=== PATIENT | female | born 1970 | race Caucasian/White ===

== ENCOUNTER 2020-07-16 14:18 | Emergency (ER) | payer MEDICARE, MEDICAID, SELFPAY ==
--- NOTE | 2020-07-16 | CT_ITS ---
EXAMINATION: CT ABDOMEN AND PELVIS WITH CONTRAST CLINICAL INFORMATION: umbilical pain COMPARISON: 05/27/2020 TECHNIQUE: Multidetector volumetric imaging was performed from the superior aspect of the liver through the pubic symphysis following administration of 85 cc of Omnipaque intravenous contrast Sagittal and coronal reformatted images were obtained on the technologist workstation.. This CT examination was performed using dose optimization techniques as appropriate, variously including the following: *Automated exposure control *Adjustment of mA and/or kV according to patient size (this includes techniques or standardized protocols for targeted exams where dose is matched to indication/reason for exam; i.e. extremities or head) *Use of iterative reconstruction technique DLP: 962 mGy-cm FINDINGS: LUNG BASES: The visualized lung bases are unremarkable. LIVER, GALLBLADDER, AND BILIARY TREE: The liver is normal in size, shape, and attenuation. No focal hepatic lesion or biliary ductal dilatation is present. The gallbladder is contracted but otherwise unremarkable with no evidence of radiopaque gallstones, gallbladder wall thickening, or obvious pericholecystic inflammatory changes. PANCREAS: Unremarkable. SPLEEN: Unremarkable. ADRENAL GLANDS: Unremarkable. KIDNEYS AND URETERS: There is a 3.2 cm likely complex cyst arising in the anterior lower pole of the right kidney. This measures more than simple fluid density. No obstructive changes to the kidneys. No renal calculi BLADDER: Decompressed but otherwise unremarkable GASTROINTESTINAL TRACT: Few scattered colonic diverticula but no evidence for diverticulitis appendix is surgically absent. Visualized small bowel unremarkable ABDOMINAL WALL: There is mild inflammatory changes in the region of the umbilicus but this appears to be superficial process more suggestive of cellulitis rather than a deeper or intra-abdominal process. LYMPHOVASCULAR STRUCTURES: Mild vascular calcification within the aorta iliac system. No bulky adenopathy PELVIC VISCERA: Unremarkable. OSSEOUS STRUCTURES: Multilevel degenerative changes in the spine more so at L3/L4. IMPRESSION: There is significant soft tissue stranding in the region of the umbilicus more suggestive of focal cellulitis is a tiny air bubble within this area of inflammatory change just deep to the skin surface. I do not appreciate any extension into the peritoneal space or below the abdominal wall. Clinical correlation would be recommended. 3.2 cm likely complex cyst in the right kidney. This can be evaluated with ultrasound or contrast-enhanced cross-sectional imaging.
[2020-07-16 15:05] VITALS: BP 141/73; PULSE 100; RESP 18; TEMP 37; O2SAT 98; BMI 40.2
--- NOTE | 2020-07-16 20:42 | ED.ABDPAIN ---
HPI - Abdominal Pain General Chief Complaint: Abdominal Pain Stated Complaint: belly button pain,pus Time Seen by Provider: 07/16/20 20:30 Source: patient Mode of arrival: ambulatory History of Present Illness HPI narrative: patient states that several days of periumbilical abdominal pain For the past several days. Increase today with drainage from umbilicus. Denies fevers or chills denies diarrhea. Patient states of pain on tenderness to the mid abdomen. Denies urinary symptoms MD elicited complaint: abdominal pain Severity: mild Related Data Previous Rx's Medication Instructions Recorded clindamycin HCl 300 mg PO Q8H #21 cap 07/16/20 Allergies Allergy/AdvReac Type Severity Reaction Status Date / Time morphine [Morphine] Allergy Intermediate VOMITING Verified 07/16/20 21:11 acetaminophen [Percocet] Allergy Unknown Vomiting Verified 07/16/20 21:11 oxycodone [Percocet] Allergy Unknown Vomiting Verified 07/16/20 21:11 From Percocet AdvReac Intermediate VOMITING Uncoded 07/16/20 21:11 Review of Systems Review of Systems Yes all other systems are reviewed and are negative Comments: Constitutional : No Weight loss, No Fever, No Chills, No Night Sweats, No Fatigue, No Malaise ENT/Mouth : No Hearing loss, No Ear Pain, No Nasal Congestion, No Sinus Pain, No Hoarseness, No sore throat, No Rhinorrhea, No Swallowing Difficulty Eyes: No Eye Pain, No Swelling, No Redness, No Foreign Body, No Discharge, No Vision Changes Cardiovascular : No Chest Pain, No SOB, No Dyspnea on Exertion, No Orthopnea, No Edema, No Palpitations Respiratory : No Cough, No Sputum, No Wheezing, No Smoke Exposure, No Dyspnea Gastrointestinal : No Nausea, No Vomiting, No Diarrhea, No Constipation, No abdominal Pain, No Hematochezia, No Melena Genitourinary : no irregular bleeding, No Dysuria, No Urinary Frequency, No Hematuria, No Urinary Incontinence, No Urgency, No Flank Pain, No Urinary Flow Changes, No Hesitancy Musculoskeletal : No joint pain, No Myalgias, No Joint Swelling Skin : No Skin Lesions, No rash Neuro : No Weakness, No Numbness, No Paresthesias, No Loss of Consciousness, No Dizziness, No Headache Psych : No Anxiety/Panic, No Depression, No SI/HI/AH/VH, No Social Issues, Heme/Lymph: No Bruising, No Bleeding,No Lymphadenopathy Endocrine : No Polyuria, No Polydipsia, No Temperature Intolerance Physical Exam Vital Signs and I&O and Narrative: Vital Signs and I&O: Vital Signs Temp 98.1 F 07/16/20 22:00 Pulse 89 07/16/20 22:00 Resp 16 07/16/20 22:00 BP 110/74 07/16/20 22:00 Pulse Ox 96 07/16/20 22:00 Intake & Output 07/16/20 07/16/20 07/17/20 06:59 18:59 06:59 Intake Total 1000 / 1000 Balance 1000 / 1000 Weight 99.798 kg Intake: Intake, IV Amoun t 1000 / 1000 0.9 % Sodium C hloride 1,000 ml 1000 / 1000 @ 999 mls/hr I VCONT .Q1H1M JAMES Rx#:[id number] Body Mass Index 40.2 reviewed, 98% pulse ox Const: Other: Appearance: Alert. Oriented X3. No acute distress. Eyes: Pupils equal, round and reactive to light. ENT: Pharynx normal. Neck: Normal inspection. Neck supple. CVS: Normal heart rate and rhythm. Pulses normal. Respiratory: No respiratory distress. Breath sounds normal. Abdomen: Soft and mild tenderness down the like his period with umbilicus draining dry blood. No abscess no laceration Skin: Skin warm and dry. Normal skin color. Normal skin turgor. Extremities: No lower extremity edema. No lower extremity edema. Neuro: Oriented X 3. No motor deficit. No sensory deficit. Course Course Course Narrative: differential diagnosis includes abscess, infection, perforation of the abdomen Reevaluation(s) Reevaluation #1: Patient with adominal Wall cellulitis. No signs of sepsis. CT scan without shows abscess. Patient able to walk on her own. Smiling alert oriented and nontoxic appearing. At discharge re-examine the abdomen shows no signs of peritonitis. Will discharge with p.o. medications Time: 23:43 MDM - Abdominal Pain Medical Records Attestation: I reviewed the patient's medical records. Lab Data Attestation: I reviewed the patient's lab results. Result diagrams: 07/16/20 21:08 07/16/20 21:08 Labs: Lab Results 10/05/20 10/05/20 10/05/20 Range/Units 21:08 21:08 21:08 WBC 9.8 (4.8-10.8) X10*3/uL RBC 4.33 (4.20-5.50) X10*6/uL Hgb 13.4 (12.0-16.0) g/dl Hct 39.3 (37-47) % MCV 90.8 (80-98) fL MCH 30.9 (27.0-33.0) pg MCHC 34.1 (31.0-35.0) g/dl RDW 12.5 (11.0-16.0) % Plt Count 313 (160-400) X10*3/uL MPV 9.4 (9.4-12.3) fL Immature Gran % (Auto) 0.1 (0.0-0.4) % Neut % (Auto) 52.7 (45-73) % Lymph % (Auto) 39.6 (20-40) % [place] % (Auto) 6.2 (2-11) % Eos % (Auto) 1.0 (0-4) % Baso % (Auto) 0.4 (0-2) % Neut # (Auto) 5.2 (2.0-8.3) X10*3/uL Lymph # (Auto) 3.9 (1.2-4.9) X10*3/uL [place] # (Auto) 0.6 (0.1-1.2) X10*3/uL Eos # (Auto) 0.1 (0.0-0.4) X10*3/uL Baso # (Auto) 0.0 (0.0-0.2) X10*3/uL Abs Immat Gran (auto) 0.01 (0.00-0.03) X10*3/uL Absolute Nucleated RBC 0.000 (0.0-0.012) X10*3/uL Nucleated RBC % (auto) 0.0 (0.0-0.2) /100WBC Hold Blue Top SEE NOTE Sodium (135-145) mmol/L Potassium (3.3-5.1) mmol/l Chloride (96-108) mmol/L Carbon Dioxide (22-29) mmol/L Anion Gap (12-20) BUN (9-16) mg/dL Creatinine (0.5-1.4) mg/dL Estim Creat Clear Calc Estimated GFR Random Glucose (60-115) mg/dL Calcium (8.4-10.2) mg/dL Total Bilirubin (0.0-1.0) mg/dL AST (5-31) U/L ALT (0-31) U/L Alkaline Phosphatase (39-117) U/L Total Protein (6.5-8.0) g/dL Albumin (3.5-5.0) g/dL Urine Color YELLOW Urine Appearance CLEAR Urine pH 7.0 (5.0-8.0) Ur Specific [place] 1.020 (1.005-1.025) Urine Protein NEG (NEG-TRACE) MG/DL Urine Glucose (UA) NEG (NEG) MG/DL Urine Ketones NEG (NEG) MG/DL Urine Blood NEG (NEG) Urine Nitrite NEG (NEG) Ur Leukocyte Esterase 1+ H (NEG) Urine RBC 0 (0) /HPF Urine WBC 1-4 (0-4) /HPF Ur Squamous Epith Cells TRACE /LPF Urine Bacteria TRACE /LPF 07/16/20 Range/Units 21:08 WBC (4.8-10.8) X10*3/uL RBC (4.20-5.50) X10*6/uL Hgb (12.0-16.0) g/dl Hct (37-47) % MCV (80-98) fL MCH (27.0-33.0) pg MCHC (31.0-35.0) g/dl RDW (11.0-16.0) % Plt Count (160-400) X10*3/uL MPV (9.4-12.3) fL Immature Gran % (Auto) (0.0-0.4) % Neut % (Auto) (45-73) % Lymph % (Auto) (20-40) % [place] % (Auto) (2-11) % Eos % (Auto) (0-4) % Baso % (Auto) (0-2) % Neut # (Auto) (2.0-8.3) X10*3/uL Lymph # (Auto) (1.2-4.9) X10*3/uL [place] # (Auto) (0.1-1.2) X10*3/uL Eos # (Auto) (0.0-0.4) X10*3/uL Baso # (Auto) (0.0-0.2) X10*3/uL Abs Immat Gran (auto) (0.00-0.03) X10*3/uL Absolute Nucleated RBC (0.0-0.012) X10*3/uL Nucleated RBC % (auto) (0.0-0.2) /100WBC Hold Blue Top Sodium 141 (135-145) mmol/L Potassium 3.9 (3.3-5.1) mmol/l Chloride 103 (96-108) mmol/L Carbon Dioxide 26 (22-29) mmol/L Anion Gap 16 (12-20) BUN 14 (9-16) mg/dL Creatinine 0.79 (0.5-1.4) mg/dL Estim Creat Clear Calc 95.1 Estimated GFR > 60 Random Glucose 116 H (60-115) mg/dL Calcium 10.5 H (8.4-10.2) mg/dL Total Bilirubin 0.3 (0.0-1.0) mg/dL AST 27 (5-31) U/L ALT 39 H (0-31) U/L Alkaline Phosphatase 94 (39-117) U/L Total Protein 7.6 (6.5-8.0) g/dL Albumin 4.6 (3.5-5.0) g/dL Urine Color Urine Appearance Urine pH (5.0-8.0) Ur Specific [place] (1.005-1.025) Urine Protein (NEG-TRACE) MG/DL Urine Glucose (UA) (NEG) MG/DL Urine Ketones (NEG) MG/DL Urine Blood (NEG) Urine Nitrite (NEG) Ur Leukocyte Esterase (NEG) Urine RBC (0) /HPF Urine WBC (0-4) /HPF Ur Squamous Epith Cells /LPF Urine Bacteria /LPF Discharge Plan Discharge Clinical Impression: Abdominal wall cellulitis Patient Disposition: Home, Self-Care Instructions: Cellulitis (ED) Additional Instructions: Thank you for visiting the emergency department today. If your symptoms worsen or do not resolve completely please return to the emergency department immediately or call 911. if he have any questions please call your primary care physician Prescriptions: New clindamycin HCl 300 mg capsule 300 mg PO Q8H Qty: 21 RF: 0 Referrals: Festus Lang PA-C [Primary Care Provider] - 2 days Interventions: ED Discharge Assessment Last Done: 07/16/20 23:24 Discharge Date/Time: 07/16/20 23:39 [facility] Past Medical History Attestation statement: The following information was validated with the patient. Surgical History (Updated 07/16/20 @ 20:49 by Nikolay Paredes DO) H/O: hysterectomy Family History Family History (Updated 07/16/20 @ 20:49 by Nikolay Paredes DO) Other Patient denies medical problems Social History Social History Alcohol intake: never Smoking Status: Former smoker Smoked in Last 30 Days: No Use of substances other than those prescribed or required for medical reasons: No Advance Directives: No Advance Directives Information Provided: No
[2020-07-16] MEDS: 0.9 % Sodium Chloride 1,000 ML 999 ML IVCONT (21:11)
[2020-07-16 21:17] LABS: MANUAL DIFF FLAG NO
[2020-07-16] MEDS: Ketorolac Tromethamine 30 MG/ML VIAL IVPUSH (21:21)
[2020-07-16 21:22] VITALS: BP 121/78; PULSE 78; RESP 16; TEMP 36.9; O2SAT 97
[2020-07-16 21:32] LABS: Glucose Urine UA NEG (NEG); Leukocyte Esterase Urine 1+ (NEG); Nitrite Urine NEG (NEG); Urine Blood NEG (NEG); Urine Ketones NEG (NEG); Urine Protein NEG (NEG-TRACE)
[2020-07-16 21:37] LABS: Appearance Urine CLEAR; Basophils Percent Auto 0.4 % (0-2); Color Urine YELLOW; Eosinophils Absolute Auto 0.1 X10*3/uL (0.0-0.4); Hematocrit 39.3 % (37-47); Hemoglobin 13.4 g/dl (12.0-16.0); Imm Gran Abs Auto 0.01 X10*3/uL (0.00-0.03); Imm Gran Pct Auto 0.1 % (0.0-0.4); Lymphocytes Absolute Auto 3.9 X10*3/uL (1.2-4.9); Lymphocytes Percent Auto 39.6 % (20-40); Mean Corpuscular HGB Conc 34.1 g/dl (31.0-35.0); Mean Corpuscular Hemoglobin 30.9 pg (27.0-33.0); Mean Corpuscular Volume 90.8 fL (80-98); Mean Platelet Volume 9.4 fL (9.4-12.3); Monocytes Absolute Auto 0.6 X10*3/uL (0.1-1.2); Monocytes Percent Auto 6.2 % (2-11); Neutrophils Absolute Auto 5.2 X10*3/uL (2.0-8.3); Neutrophils Percent Auto 52.7 % (45-73); Platelet Count 313 X10*3/uL (160-400); Red Blood Count 4.33 X10*6/uL (4.20-5.50); Red Cell Distribution Width 12.5 % (11.0-16.0); White Blood Count 9.8 X10*3/uL (4.8-10.8)
[2020-07-16 21:46] LABS: Alanine Aminotransferase 39 U/L (0-31); Albumin Level 4.6 g/dL (3.5-5.0); Alkaline Phosphatase 94 U/L (39-117); Anion Gap 16 (12-20); Aspartate Amino Transferase 27 U/L (5-31); Bilirubin Total 0.3 mg/dL (0.0-1.0); Blood Urea Nitrogen 14 mg/dL (9-16); Calcium 10.5 mg/dL (8.4-10.2); Carbon Dioxide 26 mmol/L (22-29); Chloride 103 mmol/L (96-108); Creatinine Clr Calc Pharmacy 95.1; Estimated Glomerular Filt Rate > 60; Glucose Random 116 mg/dL (60-115); Potassium 3.9 mmol/l (3.3-5.1); Sodium 141 mmol/L (135-145); Total Protein 7.6 g/dL (6.5-8.0)
[2020-07-16 22:00] VITALS: BP 110/74; PULSE 89; RESP 16; TEMP 36.7; O2SAT 96
[2020-07-16 22:08] LABS: Bacteria Urine TRACE /LPF; RBC Urine 0 /HPF (0); Squamous Epithelial Cell Urine TRACE /LPF
[2020-07-16] MEDS: iohexoL 350 MG/ML 100 ML INFUS..BTL IV (22:11)
== END 2020-07-16 23:39 | disposition home or self-care (01) ==
PROVIDERS: Emergency Provider Emergency Medicine; PCP Physician Assistant
DX: L03.311 Cellulitis of abdominal wall (principal); Z87.891 Personal history of nicotine dependence
CPT/HCPCS: 36415; 74177; 80053; 81001; 85025; 87086; 96361; 96374; 99284

== ENCOUNTER → 2020-08-08 12:51 | Outpatient (BNVA) | payer MEDICARE, MEDICAID, SELFPAY | PROVIDERS: PCP Physician Assistant; Referring Provider Physician Assistant; Visit Provider Dietitian, Registered | DX: Z76.89 Persons encountering health services in other specified circumstances (principal) ==

== ENCOUNTER 2020-08-17 08:20 | Outpatient (REF) | payer MEDICARE, MEDICAID, SELFPAY ==
--- NOTE | 2020-08-17 08:26 | MM_ITS ---
EXAMINATION: MM SCREENING DIGITAL BREAST TOMOSYNTHESIS, BILATERAL CLINICAL INFORMATION: Screening. Asymptomatic. The lifetime risk of breast cancer based on the Tyrer-Cuzick Model is 3.8%. COMPARISON: Mammography: March 15, 2019 and studies dating back to May 20, 2012 TECHNIQUE: Digital mammography is performed in craniocaudal and mediolateral oblique views along with computer-aided detection (CAD). Digital breast tomosynthesis is performed in implant-displaced craniocaudal and implant-displaced mediolateral oblique views along with computer-aided detection (CAD). Synthesized 2D images are generated from the tomosynthesis. Additional left cleavage view performed. FINDINGS: The breasts are almost entirely fatty (ACR BI-RADS breast composition Category a). There are no significant masses, abnormal calcifications, or other abnormalities. MM/MM tomosynthesis screen imp BI IMPRESSION: There are no significant changes from prior study. ASSESSMENT: BI-RADS 1: Negative RECOMMENDATION: Routine annual mammography screening. This patient's information was entered into a reminder system with a target due date for their next mammogram.
== END 2020-08-17 08:21 | disposition home or self-care (01) ==
LOC: HO.MAMMO 08:20
PROVIDERS: PCP Physician Assistant; Visit Provider Obstetrics & Gynecology
DX: Z12.31 Encounter for screening mammogram for malignant neoplasm of breast (principal)
CPT/HCPCS: 77063; 77067

== ENCOUNTER → 2020-08-28 13:48 | Outpatient (BNVA) | payer MEDICARE, MEDICAID, SELFPAY | PROVIDERS: PCP Physician Assistant; Visit Provider Dietitian, Registered | DX: Z76.89 Persons encountering health services in other specified circumstances (principal) ==

== ENCOUNTER → 2020-10-09 14:13 | Outpatient (BNVA) | payer MEDICARE, MEDICAID, SELFPAY | PROVIDERS: PCP Physician Assistant; Visit Provider Dietitian, Registered | DX: Z76.89 Persons encountering health services in other specified circumstances (principal) ==

== ENCOUNTER 2020-11-28 13:32 | Outpatient (REF) | payer MEDICARE, MEDICAID, SELFPAY ==
[2020-11-28 14:49] LABS: Alanine Aminotransferase 31 U/L (0-31); Albumin Level 4.3 g/dL (3.5-5.0); Alkaline Phosphatase 85 U/L (39-117); Anion Gap 12 (12-20); Aspartate Amino Transferase 22 U/L (5-31); Bilirubin Total 0.5 mg/dL (0.0-1.0); Blood Urea Nitrogen 16 mg/dL (9-16); Calcium 10.4 mg/dL (8.4-10.2); Carbon Dioxide 30 mmol/L (22-29); Chloride 101 mmol/L (96-108); Cholesterol 200 mg/dL; Estimated Glomerular Filt Rate > 60; Glucose Fasting 114 mg/dL (60-99); HDL Cholesterol 56 mg/dL; LDL Cholesterol Calculated 97 mg/dl; Potassium 4.1 mmol/L (3.3-5.1); Sodium 139 mmol/L (135-145); Total Protein 7.1 g/dL (6.5-8.0); Triglycerides 237 mg/dL
[2020-11-28 15:01] LABS: Thyroid Stimulating Hormone 0.91 uIU/mL (0.32-4.0)
== END 2020-11-28 13:33 | disposition home or self-care (01) ==
LOC: HO.LAB 13:32
PROVIDERS: PCP Physician Assistant; Visit Provider Physician Assistant
DX: E11.9 Type 2 diabetes mellitus without complications (principal); E78.5 Hyperlipidemia, unspecified
CPT/HCPCS: 36415; 80053; 80061; 84443

== ENCOUNTER → 2020-12-03 08:43 | Outpatient (BNVA) | payer MEDICARE, MEDICAID, SELFPAY | PROVIDERS: PCP Physician Assistant; Visit Provider Nurse Practitioner Gerontology | CPT/HCPCS: Q3014 ==

== ENCOUNTER → 2020-12-18 14:16 | Outpatient (BNVA) | payer MEDICARE, MEDICAID, SELFPAY | PROVIDERS: PCP Physician Assistant; Visit Provider Physician Assistant | DX: Z13.89 Encounter for screening for other disorder (principal) | CPT/HCPCS: Q3014 ==

== ENCOUNTER 2021-02-27 11:43 | Outpatient (REF) | payer MEDICARE, MEDICAID, SELFPAY ==
--- NOTE | ~2021-02-27 | XR_ITS ---
EXAMINATION: XR RIBS, RIGHT CLINICAL INFORMATION: Right rib pain COMPARISON: Chest radiographs 07/05/2020, 09/04/2012 TECHNIQUE: Frontal view chest and 3 views right ribs are obtained for a total of 4 views. FINDINGS: There is no visible right rib fracture or rib destructive process. Punctate calcific tendinosis is present adjacent to the right shoulder greater tuberosity. There is also some benign minor spurring at pectoralis insertion proximal humerus. The acromioclavicular alignment is normal. There is no pneumothorax, pleural reaction, airspace consolidation, or effusion. The costophrenic sulci are clear. The heart is normal in size. The hilar and mediastinal contours are normal. There are multilevel degenerative changes thoracic spine. XR/XR ribs RT min 3V w CXR1V IMPRESSION: 1. No right rib fracture or rib destructive process. 2. Lungs clear. No pneumothorax, pleural reaction, infiltrate, or effusion. 3. Punctate calcific tendinosis right shoulder. Spurring at pectoralis insertion humerus.
== END 2021-02-27 11:44 | disposition home or self-care (01) ==
LOC: HO.XRAY 11:43
PROVIDERS: PCP Physician Assistant; Visit Provider Chiropractor
DX: R07.81 Pleurodynia (principal)
CPT/HCPCS: 71101

== ENCOUNTER → 2021-02-28 12:14 | Outpatient (BNVA) | payer MEDICARE, MEDICAID, SELFPAY | PROVIDERS: PCP Physician Assistant; Visit Provider Dietitian, Registered | DX: E11.9 Type 2 diabetes mellitus without complications (principal); Z79.4 Long term (current) use of insulin | CPT/HCPCS: 97803 ==

== ENCOUNTER 2021-07-18 18:19 | Outpatient (REF) | payer MEDICARE, MEDICAID, SELFPAY ==
[2021-07-18 18:59] LABS: Influenza A PCR NEGATIVE (Negative); Influenza B PCR NEGATIVE (Negative); Resp Syncy Virus RNA Qual PCR NEGATIVE (Negative); SARS COV2 PCR INHOUSE NEGATIVE (Negative)
== END 2021-07-18 18:20 | disposition home or self-care (01) ==
LOC: HO.LNP 18:19
PROVIDERS: Visit Provider Family Medicine
DX: J02.9 Acute pharyngitis, unspecified (principal); Z20.822 Contact with and (suspected) exposure to COVID-19
CPT/HCPCS: 0241U

== ENCOUNTER → 2021-08-30 11:40 | Outpatient (BNVA) | payer MEDICARE, MEDICAID, SELFPAY | PROVIDERS: PCP Physician Assistant; Visit Provider Dietitian, Registered | DX: E11.9 Type 2 diabetes mellitus without complications (principal) | CPT/HCPCS: 97803 ==

== ENCOUNTER 2021-09-27 11:23 | Outpatient (REF) | payer MEDICARE, MEDICAID, SELFPAY ==
[2021-09-27 12:14] LABS: Hematocrit 40.1 % (37.0-47.0); Hemoglobin 13.1 g/dl (12.0-16.0); Mean Corpuscular HGB Conc 32.7 g/dl (31.0-35.0); Mean Corpuscular Hemoglobin 30.2 pg (27.0-33.0); Mean Corpuscular Volume 92.4 fL (80.0-98.0); Mean Platelet Volume 8.9 fL (9.4-12.3); Platelet Count 283 X10*3/uL (160-400); Red Blood Count 4.34 X10*6/uL (4.20-5.50); Red Cell Distribution Width 12.9 % (11.0-16.0); White Blood Count 7.5 X10*3/uL (4.8-10.8)
[2021-09-27 12:46] LABS: Alanine Aminotransferase 29 U/L (0-31); Albumin Level 4.1 g/dL (3.5-5.0); Alkaline Phosphatase 80 U/L (39-117); Anion Gap 12 (12-20); Aspartate Amino Transferase 21 U/L (5-31); Bilirubin Total 0.4 mg/dL (0.0-1.0); Blood Urea Nitrogen 18 mg/dL (9-16); Calcium 10.1 mg/dL (8.4-10.2); Carbon Dioxide 29 mmol/L (22-29); Chloride 104 mmol/L (96-108); Cholesterol 196 mg/dL; Estimated Glomerular Filt Rate > 60; Glucose Fasting 128 mg/dL (60-99); HDL Cholesterol 46 mg/dL; LDL Cholesterol Calculated 111 mg/dl; Sodium 141 mmol/L (135-145); Total Protein 6.9 g/dL (6.5-8.0); Triglycerides 198 mg/dL
[2021-09-27 13:07] LABS: TSH reflex Free T4 1.03 uIU/mL (0.32-4.0)
== END 2021-09-27 11:24 | disposition home or self-care (01) ==
LOC: HO.LAB 11:23
PROVIDERS: PCP Physician Assistant; Visit Provider Physician Assistant
DX: E11.9 Type 2 diabetes mellitus without complications (principal); I10 Essential (primary) hypertension
CPT/HCPCS: 36415; 80053; 80061; 84443; 85027

== ENCOUNTER → 2021-10-10 14:34 | Outpatient (BNVA) | payer MEDICARE, MEDICAID, SELFPAY | PROVIDERS: PCP Physician Assistant; Visit Provider Nurse Practitioner Gerontology | DX: E11.9 Type 2 diabetes mellitus without complications (principal); E78.5 Hyperlipidemia, unspecified; E66.9 Obesity, unspecified; I10 Essential (primary) hypertension | CPT/HCPCS: Q3014 ==

== ENCOUNTER 2022-01-21 12:21 | Outpatient (REF) | payer MEDICARE, MEDICAID, SELFPAY ==
--- NOTE | ~2022-01-21 | MM_ITS ---
EXAMINATION: MM SCREENING DIGITAL BREAST TOMOSYNTHESIS, BILATERAL CLINICAL INFORMATION: Screening. Asymptomatic. The lifetime risk of breast cancer based on the Tyrer-Cuzick Model is 9%. COMPARISON: Mammography: 08/17/2020, 03/15/2019, 02/01/2018 TECHNIQUE: Digital breast tomosynthesis is performed in both the craniocaudal and mediolateral oblique views along with computer-aided detection (CAD). Synthesized 2D images are generated from the tomosynthesis. Additional bilateral CC views are provided. FINDINGS: There are scattered areas of fibroglandular density (ACR BI-RADS breast composition Category b). Breast tissue composition borders on predominantly fatty. Background stromal and fibroglandular densities are stable. There is no developing density or architectural abnormality or abnormal calcifications. The axilla and skin contours are unremarkable. No significant changes. MM/MM tomosynthesis screening BI IMPRESSION: No mammographic evidence of malignancy. ASSESSMENT: BI-RADS 1: Negative RECOMMENDATION: Routine annual mammography screening. This patient's information was entered into a reminder system with a target due date for their next mammogram.
== END 2022-01-21 12:22 | disposition home or self-care (01) ==
LOC: HO.MAMMO 12:21
PROVIDERS: PCP Physician Assistant; Visit Provider Physician Assistant
DX: Z12.31 Encounter for screening mammogram for malignant neoplasm of breast (principal)
CPT/HCPCS: 77063; 77067

== ENCOUNTER 2022-06-02 09:24 | Outpatient (REF) | payer MEDICARE, MEDICAID, SELFPAY ==
[2022-06-02 10:02] LABS: Hematocrit 40.2 % (37.0-47.0); Hemoglobin 13.7 g/dl (12.0-16.0); Mean Corpuscular HGB Conc 34.1 g/dl (31.0-35.0); Mean Corpuscular Hemoglobin 30.9 pg (27.0-33.0); Mean Corpuscular Volume 90.7 fL (80.0-98.0); Mean Platelet Volume 9.4 fL (9.4-12.3); Platelet Count 285 X10*3/uL (160-400); Red Blood Count 4.43 X10*6/uL (4.20-5.50); Red Cell Distribution Width 12.5 % (11.0-16.0); White Blood Count 8.1 X10*3/uL (4.8-10.8)
[2022-06-02 10:15] LABS: Estimated Average Glucose 103 mg/dL; Hemoglobin A1c % 5.2 %
[2022-06-02 10:26] LABS: Alanine Aminotransferase 24 U/L (0-31); Albumin Level 4.4 g/dL (3.5-5.0); Alkaline Phosphatase 70 U/L (39-117); Anion Gap 17 (12-20); Aspartate Amino Transferase 19 U/L (5-31); Bilirubin Total 0.5 mg/dL (0.0-1.0); Blood Urea Nitrogen 27 mg/dL (9-16); Calcium 10.2 mg/dL (8.4-10.2); Carbon Dioxide 25 mmol/L (22-29); Chloride 103 mmol/L (96-108); Cholesterol 190 mg/dL; Estimated Glomerular Filt Rate > 60; Glucose Fasting 106 mg/dL (60-99); HDL Cholesterol 46 mg/dL; LDL Cholesterol Calculated 94 mg/dl; Sodium 141 mmol/L (135-145); Triglycerides 251 mg/dL
[2022-06-02 10:47] LABS: TSH reflex Free T4 1.14 uIU/mL (0.32-4.0)
[2022-06-02 12:32] LABS: Creatinine Urine 228.38 mg/dL; Microalbum/Creatinine Ratio Ur 18.8 ug/mg cr
== END 2022-06-02 09:25 | disposition home or self-care (01) ==
LOC: HO.LAB 09:24
PROVIDERS: PCP Physician Assistant; Visit Provider Physician Assistant
DX: E78.5 Hyperlipidemia, unspecified (principal); I10 Essential (primary) hypertension; E11.41 Type 2 diabetes mellitus with diabetic mononeuropathy
CPT/HCPCS: 36415; 80053; 80061; 82043; 83036; 84443; 85027

== ENCOUNTER 2022-06-18 09:44 | Outpatient (REF) | payer MEDICARE, MEDICAID, SELFPAY ==
--- NOTE | ~2022-06-18 | FL_ITS ---
EXAMINATION: FL BARIUM SWALLOW CLINICAL INFORMATION: Difficulty swallowing. COMPARISON: None TECHNIQUE: Barium swallow examination was performed using fluoroscopic evaluation in addition to multiple fluoroscopic spot views. The patient was imaged both upright and prone and using both thick and thin sulfate along with effervescent granules. Fluoroscopy Time: 2.0 minutes DAP: 7.899 Gycm2 Images: 58 FINDINGS: Following oral administration of thick barium and barium-coated turkey, there is normal propagation of the bolus from the oral cavity through the pharynx, esophagus and into the stomach without any evidence of obstruction, narrowing or stricture. The course, caliber and peristalsis of esophagus are normal. There is no gastroesophageal reflux or hiatal hernia in the supine and prone positions. FL/FL barium swallow IMPRESSION: Unremarkable barium swallow exam.
== END 2022-06-18 09:45 | disposition home or self-care (01) ==
LOC: HO.XRAY 09:44
PROVIDERS: PCP Physician Assistant; Visit Provider Physician Assistant
DX: R09.89 Other specified symptoms and signs involving the circulatory and respiratory systems (principal)
CPT/HCPCS: 74220

== ENCOUNTER 2022-07-31 14:19 | Outpatient (REF) | payer MEDICARE, SELFPAY ==
--- NOTE | ~2022-07-31 | XR_ITS ---
EXAMINATION: XR CHEST CLINICAL INFORMATION: Abnormal weight loss COMPARISON: Previous chest x-ray most recent June 2020 TECHNIQUE: 2 views of the chest were obtained. FINDINGS: No significant abnormality is noted involving the heart, lungs, mediastinum, or soft tissues. There are degenerative changes of the spine. XR/XR chest 2V IMPRESSION: No evidence for acute disease in the chest.
[2022-07-31 14:52] LABS: Estimated Average Glucose 108 mg/dL; Hemoglobin A1c % 5.4 %
[2022-08-05 05:43] LABS: Transglutaminase IgA <1.0 U/mL
[2022-08-06 17:17] LABS: Endomysial IgA Antibody Negative (Negative)
== END 2022-07-31 14:20 | disposition home or self-care (01) ==
LOC: HO.XRAY 14:19
PROVIDERS: PCP Physician Assistant; Visit Provider Physician Assistant
DX: R68.81 Early satiety (principal); R63.4 Abnormal weight loss; L03.316 Cellulitis of umbilicus; R10.13 Epigastric pain; F17.210 Nicotine dependence, cigarettes, uncomplicated; R09.89 Other specified symptoms and signs involving the circulatory and respiratory systems; F17.200 Nicotine dependence, unspecified, uncomplicated; E11.9 Type 2 diabetes mellitus without complications; R05.9 Cough, unspecified; Z79.899 Other long term (current) drug therapy
CPT/HCPCS: 36415; 71046; 83036; 86231; 86364; 99202

== ENCOUNTER 2022-08-05 14:55 | Outpatient (REF) | payer MEDICARE, SELFPAY | END 2022-08-05 14:56 | disposition home or self-care (01) | LOC: HO.LNP 14:55 | PROVIDERS: Visit Provider Family Medicine | DX: L08.9 Local infection of the skin and subcutaneous tissue, unspecified (principal) | CPT/HCPCS: 87070; 87205 ==

== ENCOUNTER → 2022-10-30 08:08 | Outpatient (REF) | payer MEDICARE, SELFPAY ==
--- NOTE | ~2022-10-30 | NM_ITS ---
EXAMINATION: ND RADIONUCLIDE SOLID FOOD GASTRIC EMPTYING 4-HOUR STUDY CLINICAL INFORMATION: Early satiety. COMPARISON: None TECHNIQUE: A standard meal consisting of 4 oz of Egg Beaters brand tagged with 1000 microcuries Tc-99m Sulfur Colloid, 8 oz water and 2 slices of toast with jelly was administered orally to the patient. Images were obtained using a dual head gamma camera in the anterior and posterior projections over of the stomach immediately post ingestion and at hourly intervals up to 4 hours post ingestion. The anterior and posterior counts at each time interval were averaged using the geometric mean and expressed as percentage of the immediate post ingestion counts. FINDINGS: There is good visualization of activity in the stomach immediately post ingestion. As the study progresses, there is good clearance of activity from the stomach and visualization of progressively increasing small bowel activity. By the end of the study, there is almost no retention noted in the stomach. Retention in the stomach at each time interval was: 1 hour 66% (normal 37%-90%) 2 hours 37% (normal 30%-60%) 3 hours 4% 4 hours emptying time was not calculated since only 4% retained activity was noted at 3 hours. ND/ND gastric emptying study IMPRESSION: Normal 4-hour solid food gastric emptying study. (For solid meal, rapid gastric emptying is less than 30% at 60 minutes. Delayed gastric emptying criteria is more than 60% remaining at 120 minutes or more than 10% at 240 minutes. The 4-hour value is the best discriminator of a normal or abnormal result).
== END ==
LOC: HO.NUCMED 08:08
PROVIDERS: PCP Physician Assistant; Visit Provider Physician Assistant
DX: R68.81 Early satiety (principal)
CPT/HCPCS: 78264; A9541

== ENCOUNTER 2023-01-07 11:58 | Outpatient (REF) | payer MEDICARE, SELFPAY ==
[2023-01-13 18:24] LABS: HSV 1 IgM IFA Negative (Negative); HSV 2 IgM IFA Negative (Negative)
== END 2023-01-07 11:59 | disposition home or self-care (01) ==
LOC: HO.LAB 11:58
PROVIDERS: PCP Physician Assistant; Visit Provider Physician Assistant
DX: L08.9 Local infection of the skin and subcutaneous tissue, unspecified (principal)
CPT/HCPCS: 36415; 86695; 86696

== ENCOUNTER 2023-01-27 12:16 | Outpatient (REF) | payer MEDICARE, SELFPAY ==
--- NOTE | ~2023-01-27 | MM_ITS ---
EXAMINATION: MM SCREENING DIGITAL BREAST TOMOSYNTHESIS, BILATERAL CLINICAL INFORMATION: Screening. Asymptomatic. The lifetime risk of breast cancer based on the Tyrer-Cuzick Model is 7.7%. COMPARISON: Mammography: January 21, 2022 and studies dating back to August 28, 2014 TECHNIQUE: Digital breast tomosynthesis is performed in both the craniocaudal and mediolateral oblique views along with computer-aided detection (CAD). Synthesized 2D images are generated from the tomosynthesis. FINDINGS: The breasts are almost entirely fatty (ACR BI-RADS breast composition Category a). There are no significant masses, abnormal calcifications, or other abnormalities. MM/MM tomosynthesis screening BI IMPRESSION: No significant changes from prior exam. ASSESSMENT: BI-RADS 1: Negative RECOMMENDATION: Routine annual mammography screening. This patient's information was entered into a reminder system with a target due date for their next mammogram.
== END 2023-01-27 12:17 | disposition home or self-care (01) ==
LOC: HO.MAMMO 12:16
PROVIDERS: PCP Physician Assistant; Visit Provider Physician Assistant
DX: Z12.31 Encounter for screening mammogram for malignant neoplasm of breast (principal)
CPT/HCPCS: 77063; 77067

== ENCOUNTER 2023-03-14 08:50 | Outpatient (REF) | payer MEDICARE, SELFPAY ==
[2023-03-14 09:34] LABS: Hematocrit 40.9 % (37.0-47.0); Hemoglobin 13.6 g/dl (12.0-16.0); Mean Corpuscular HGB Conc 33.3 g/dl (31.0-35.0); Mean Corpuscular Hemoglobin 31.3 pg (27.0-33.0); Mean Corpuscular Volume 94.2 fL (80.0-98.0); Mean Platelet Volume 9.3 fL (9.4-12.3); Platelet Count 266 X10*3/uL (160-400); Red Blood Count 4.34 X10*6/uL (4.20-5.50); Red Cell Distribution Width 12.4 % (11.0-16.0); White Blood Count 7.5 X10*3/uL (4.8-10.8)
[2023-03-14 10:13] LABS: Alanine Aminotransferase 27 U/L (0-31); Albumin Level 4.3 g/dL (3.5-5.0); Alkaline Phosphatase 82 U/L (39-117); Anion Gap 13 (12-20); Aspartate Amino Transferase 24 U/L (5-31); Bilirubin Total 0.4 mg/dL (0.0-1.0); Blood Urea Nitrogen 24 mg/dL (9-16); Calcium 10.8 mg/dL (8.4-10.2); Carbon Dioxide 28 mmol/L (22-29); Chloride 106 mmol/L (96-108); Cholesterol 185 mg/dL; Estimated Glomerular Filt Rate > 60; Glucose Fasting 111 mg/dL (60-99); HDL Cholesterol 57 mg/dL; LDL Cholesterol Calculated 101 mg/dl; Sodium 143 mmol/L (135-145); Triglycerides 137 mg/dL
[2023-03-14 10:30] LABS: TSH reflex Free T4 1.82 uIU/mL (0.32-4.0)
== END 2023-03-14 08:51 | disposition home or self-care (01) ==
LOC: HO.LAB 08:50
PROVIDERS: PCP Physician Assistant; Visit Provider Physician Assistant
DX: E11.41 Type 2 diabetes mellitus with diabetic mononeuropathy (principal)
CPT/HCPCS: 36415; 80053; 80061; 84443; 85027

== ENCOUNTER 2023-03-17 11:34 | Outpatient (REF) | payer MEDICARE, SELFPAY ==
[2023-03-17 12:09] LABS: Hematocrit 40.3 % (37.0-47.0); Hemoglobin 13.3 g/dl (12.0-16.0); Mean Corpuscular Hemoglobin 30.5 pg (27.0-33.0); Mean Corpuscular Volume 92.4 fL (80.0-98.0); Mean Platelet Volume 8.8 fL (9.4-12.3); Platelet Count 269 X10*3/uL (160-400); Red Blood Count 4.36 X10*6/uL (4.20-5.50); Red Cell Distribution Width 12.5 % (11.0-16.0); White Blood Count 9.6 X10*3/uL (4.8-10.8)
[2023-03-17 12:33] LABS: Alanine Aminotransferase 28 U/L (0-31); Albumin Level 4.1 g/dL (3.5-5.0); Alkaline Phosphatase 75 U/L (39-117); Anion Gap 10 (12-20); Aspartate Amino Transferase 31 U/L (5-31); Bilirubin Total 0.5 mg/dL (0.0-1.0); Blood Urea Nitrogen 26 mg/dL (9-16); Calcium 10.4 mg/dL (8.4-10.2); Carbon Dioxide 27 mmol/L (22-29); Chloride 108 mmol/L (96-108); Cholesterol 181 mg/dL; Estimated Glomerular Filt Rate > 60; Glucose Fasting 102 mg/dL (60-99); HDL Cholesterol 55 mg/dL; LDL Cholesterol Calculated 96 mg/dl; Sodium 141 mmol/L (135-145); Total Protein 6.8 g/dL (6.5-8.0); Triglycerides 152 mg/dL
== END 2023-03-17 11:35 | disposition home or self-care (01) ==
LOC: HO.LAB 11:34
PROVIDERS: PCP Physician Assistant; Visit Provider Physician Assistant
DX: M79.10 Myalgia, unspecified site (principal); E11.9 Type 2 diabetes mellitus without complications; E78.5 Hyperlipidemia, unspecified
CPT/HCPCS: 36415; 80053; 80061; 82550; 85027

== ENCOUNTER 2023-03-27 11:17 | Outpatient (REF) | payer MEDICARE, MEDICAID, SELFPAY ==
[2023-03-27 16:02] LABS: Creatinine Urine 197.65 mg/dL; Microalbum/Creatinine Ratio Ur 15.1 ug/mg cr
== END 2023-03-27 11:18 | disposition home or self-care (01) ==
LOC: HO.LAB 11:17
PROVIDERS: PCP Physician Assistant; Visit Provider Physician Assistant
DX: M79.10 Myalgia, unspecified site (principal); I10 Essential (primary) hypertension
CPT/HCPCS: 36415; 82043; 82550

== ENCOUNTER 2023-05-08 10:00 | Outpatient (RCR) | payer MEDICARE, MEDICAID, SELFPAY ==
--- NOTE | 2023-03-27 11:18 | MHC.OT.EP ---
[address] [phone] Occupational Therapy Plan of Care Patient Name: Vickie Carey Date of Evaluation: 03/27/23 Diagnosis: Lateral Epicondylitis Pain Location: Pain radiates digits up to lateral elbow Low resting pain High pain w/ playing cards Pain Score: 10 Aggravating Factors: Sleep, playing cards Alleviating Factors: Brace, vicodin, has had several cortisone injections Assessment: 52 yo female w/ hx of carpal tunnel syndrome B/L'ly, reports onset of pain radiating from right fingers up forearm and into right lateral elbow. On assessment, she continues to have symptoms consistent with right carpal tunnel syndrome, but also overuse of right arm, likely w/ daily hobbies (playing cards - 2 hrs/day, video games - 3 hrs). 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 She will benefit from brief course of OT to address overuse injury w/ focus on activity modification. Frequency and Duration: The patient will be seen 2x/wk for 3 weeks Short Term Goals: Ind w/ self STM Ind w/ use of heat and ice as appropriate for pain relief Ind w/ nighttime orthosis wear Pt to report implementation of modifications for sleep and daily activities to reduce strain Music Therapy Specialist Goals: same as above Treatment Plan: Therapeutic Exercise Therapeutic Activity Home Exercise Program Splinting Patient Education Ultrasound Iontophoresis Fluidotherapy MHP Cold Packs Joint Mobilization Soft Tissue Mobilization Kinesiotaping ? dex Electronically Signed By: Radha Garces OTR/L CHT Please Sign and return to therapist. Thank you once again for your referral.
--- NOTE | 2023-05-08 10:26 | MHC.OT.DC ---
[address] [phone] F: [phone] Occupational Therapy Discharge Note Patient Name: Vickie Carey Provider: Festus Lang PA-C Diagnosis: Lateral Epicondylitis Date of Evaluation: 03/27/23 Date of Discharge: 05/08/23 Treatments to Date: 6 Discharge Status: Achieved Goals Improved Function Independent with HEP Discharge Summary: Vickie was referred to OT for right lateral epicondylitis and reports currently pain free in right elbow. She now focal at dorsal wrist and is s/p cortisone injection earlier this week, will have follow up w/ Dr Wall for continued assessment of carpal pain. She has met goals for elbow pain, but may need cont'd therapy for wrist if appropriate after ortho consult. She continues to follow joint protection techniques and uses orthoses and ice prn. Electronically Signed By: ANAYA Rodas/Alaina CHT Reviewed/agree with student documentation: Therapist: Please Sign and return to therapist, thank you for your referral.
== END 2023-05-08 10:26 | disposition home or self-care (01) ==
LOC: HO.OT 10:00
PROVIDERS: PCP Physician Assistant; Visit Provider Physician Assistant
DX: M77.11 Lateral epicondylitis, right elbow (principal)
CPT/HCPCS: 97035; 97110; 97165

== ENCOUNTER → 2023-05-27 13:57 | Outpatient (AMB) | payer MEDICARE, MEDICAID, SELFPAY ==
--- NOTE | 2023-05-27 14:09 | MHC.OFFVIS ---
Intake Vital Signs 05/27/23 14:10 Height 5 ft 3 in Weight 205 lb BMI 36.3 BP 116/80 Blood Pressure Location Lt brachial Position Sitting Pulse 70 Intake Visit Reasons: pre colonoscoopy Intake Note: Patient follow up for pre colonoscopy screening. Patient denies any GI issues. 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 Accompanied by: Self / Same As Patient Allergies morphine [Morphine] Allergy (Intermediate, Verified 05/27/23 14:09) VOMITING oxycodone [Percocet] Allergy (Unknown, Verified 05/27/23 14:09) Vomiting Medication List - Last Reconciled 05/27/23 by Jesi Rosales PA-C albuterol sulfate 90 mcg/actuation (Ventolin HFA) 1 puff inhalation QID 30 days allopurinol 100 mg PO DAILY arm brace (Elbow Compression Sleeve) As directed atorvastatin 20 mg PO DAILY baclofen 10 mg PO BID 90 days blood sugar diagnostic (Doostanguch Verio test strips) 1 strip miscellaneous DAILY clonidine HCl 0.3 mg PO BEDTIME cyanocobalamin (vitamin B-12) (Vitamin B-12) 1,000 mcg PO DAILY diclofenac sodium 75 mg PO BID 90 days ergotamine-caffeine 1-100 mg 1 tab PO Q30M PRN hydrocodone-acetaminophen 5-325 mg 1 tab PO BID PRN 4 days hydroxyzine HCl 10 mg PO BEDTIME 30 days lidocaine 5% 1 appl topical BEDTIME 15 days losartan-hydrochlorothiazide 50-12.5 mg 1 tab PO DAILY 90 days magnesium oxide 250 mg PO DAILY 90 days montelukast 10 mg PO DAILY 90 days multivitamin 1 tab PO DAILY naproxen 500 mg PO BID 7 days pantoprazole 40 mg PO DAILY sumatriptan succinate take 1 tab at onset of headache; if no relief, may repeat 1 tab after at least 2 hrs; max = 2 tabs/24 hrs PO 30 days trazodone 300 mg PO BEDTIME 30 days trazodone 100 mg PO BEDTIME 30 days HPI HPI Comments History of Present Illness Details A 52-year-old female referred for index screening colonoscopy. She is very reluctant to have a colonoscopy. No family history of colon cancer or polyps. Good appetite bowels are normal. Taking pantoprazole for acid reflux for the past as several years however feels better response to omeprazole. She has gained weight she is overweight. She has no nausea, vomiting, hematemesis, hematochezia abdominal pain, fever or chills PFSH Medical History Carpal tunnel syndrome Cellulitis, umbilical Essential hypertension Hyperlipidemia Hyperlipidemia LDL goal <100 Osteoarthritis Trigger finger Surgical History H/O: hysterectomy History of carpal tunnel release History of foot surgery Family History Father Diabetes Hypertension Stroke Heart attack, Onset Age: 50 Mother Multiple sclerosis Brother In good health Son In good health Son In good health Other Patient denies medical problems Social History Household Members: Spouse and Other Housing: Apartment Alcohol intake: current Alcohol intake frequency: holidays/special occasions only Patient Tobacco Use Status: Current everyday Tobacco user Tobacco use type: Cigarette Cigarette Packs Per Day: 0.5 Cigarettes Per Day: 6 Years Smoked: 43-started at age 8 e-Cigarette/Vaping Use: Never Used Second Hand Smoke Exposure: No service: No Current occupational status: disabled Cognitive needs: No Hearing needs: No Vision needs: Yes (glasses) Review of Systems Const All systems reviewed & are unremarkable except as noted in HPI and below Card Denies chest pain and Denies dyspnea Resp Denies dyspnea GI Reports heartburn Physical Exam Vital Signs: Last Vital Signs Pulse 70 05/27/23 14:10 BP 116/80 05/27/23 14:10 BMI result Body Mass Index 36.3 Const General: cooperative, healthy appearing and comfortable Orientation/consciousness: patient oriented x3 Limitations: no limitations Eyes Sclerae: sclerae normal Resp Effort & Inspection: normal respiratory effort and able to speak in complete sentences Auscultation: clear to auscultation bilaterally, no crackles, no rales and no rhonchi Cardio Rate: regular rate Rhythm: regular rhythm Heart sounds: S1 normal heart sound present and S2 normal heart sound present GI Palpation (GI): Soft to palpation and nontender Auscultation: normal bowel sounds Skin General skin exam: no rashes or lesions noted Neuro General: patient oriented x3 Extrem Right upper extremity: wrist (wrist splint) Psych Appearance: well kempt Speech and movement: Normal speech and movement present Affect: normal affect Attitude: cooperative Thought process: Normal thought process present Thought content: Normal thought content present Insight: Good insight present (Psych) Judgement: Good judgement present (Psych) Assessment & Plan Assessment & Plan (1) GERD (gastroesophageal reflux disease): Code(s): K21.9 - Gastro-esophageal reflux disease without esophagitis Qualifiers: Esophagitis presence: without esophagitis Qualified Code(s): K21.9 - Gastro-esophageal reflux disease without esophagitis (2) Colon cancer screening: Comment: 52 Year old female referred back for index screening colonoscopy reluctant. Discussed risk versus benefit ratio-she had many questions She has agreed to follow through- as well schedule EGD to r/o pud, nonulcer dyspepsia, esophagitis Code(s): Z12.11 - Encounter for screening for malignant neoplasm of colon Plan EGD colonoscopy MiraLax Gatorade split prep Orders: Orders EGD/[facility] Combo - GI Use Only 05/27/23 K21.9 - Gastro-esophageal reflux disease without esophagitis, Z12.11 - Encounter for screening for malignant neoplasm of colon Medications: New bisacodyl (Dulcolax (bisacodyl)) Take 4 tablets by mouth at 12:00pm the day before your procedure. 20 mg (4 x 5 mg) PO ONCE 1 day 4 tabs 0RF colonoscopy prep Z12.11 - Encounter for screening for malignant neoplasm of colon polyethylene glycol 3350 (Miralax) Take as directed by mouth the day before your procedure. 238 grams PO ONCE 1 day PRN 238 grams 0RF laxative effect Patient Instructions: Pleasant 52-year-old female referred for index screening colonoscopy-presents persistent/intermittent acid reflux- In schedule EGD colonoscopy-after detailed discussion agrees to proceed Literature given Encouraged to call questions or concerns Reflux precautions reviewed Continue PPI Appreciate the opportunity assist in the care the patient Coding Level of Care Code Est Pt Level 3 (07967) Diagnoses GERD (gastroesophageal reflux disease) K21.9 Esophagitis presence: without esophagitis Colon cancer screening Z12.11 Time Spent (min) 35
[2023-05-27 14:10] VITALS: BP 116/80; PULSE 70; BMI 36.3
== END ==
PROVIDERS: PCP Physician Assistant; Visit Provider Physician Assistant
DX: K21.9 Gastro-esophageal reflux disease without esophagitis (principal); Z12.11 Encounter for screening for malignant neoplasm of colon
CPT/HCPCS: 99213

== ENCOUNTER → 2023-05-27 13:57 | Outpatient (BNVA) | payer MEDICARE, MEDICAID, SELFPAY | PROVIDERS: PCP Physician Assistant; Visit Provider Physician Assistant | DX: Z12.11 Encounter for screening for malignant neoplasm of colon (principal); K21.9 Gastro-esophageal reflux disease without esophagitis | CPT/HCPCS: 99212 ==

== ENCOUNTER 2023-08-12 12:16 | Outpatient (AMB) | payer MEDICARE, MEDICAID, SELFPAY ==
--- NOTE | 2023-08-12 12:20 | AM.OFFWIN_ITS ---
Intake Vital Signs 3 08/12/23 12:26 Height 5 ft 3 in Weight 205 lb BMI 36.3 BP 136/70 Blood Pressure Location Rt brachial Position Sitting Pulse 95 Pulse Source Pulse Oximeter Temp 97.2 F Temp Source Temporal Artery Scan Pulse Oximetry (%) 100 Oxygen Delivery Method Room Air Intake Visit Reasons: EP right knee pain/numbness Intake Note: Pt is here c/o right knee pain and numbness that radiates down her leg for the past week. Patient Tobacco Use Status: Current everyday Tobacco user Allergies morphine [Morphine] Allergy (Intermediate, Verified 08/12/23 12:27) VOMITING oxycodone [Percocet] Allergy (Unknown, Verified 08/12/23 12:27) Vomiting Medication List - Last Reconciled 08/12/23 by Sadaf Pagan MD albuterol sulfate 90 mcg/actuation (Ventolin HFA) 1 puff inhalation QID 30 days allopurinol 100 mg PO DAILY arm brace (Elbow Compression Sleeve) As directed atorvastatin 20 mg PO DAILY baclofen 10 mg PO BID 90 days bisacodyl (Dulcolax (bisacodyl)) 20 mg (4 x 5 mg) PO ONCE 1 day blood sugar diagnostic (Cardiosonicuch Verio test strips) 1 strip miscellaneous DAILY clonidine HCl 0.3 mg PO BEDTIME cyanocobalamin (vitamin B-12) (Vitamin B-12) 1,000 mcg PO DAILY diclofenac sodium 75 mg PO BID 90 days ergotamine-caffeine 1-100 mg 1 tab PO Q30M PRN hydrocodone-acetaminophen 5-325 mg 1 tab PO BID PRN 4 days hydroxyzine HCl 10 mg PO BEDTIME 30 days lidocaine 5% 1 appl topical BEDTIME 15 days losartan-hydrochlorothiazide 50-12.5 mg 1 tab PO DAILY 90 days magnesium oxide 250 mg PO DAILY 90 days montelukast 10 mg PO DAILY 90 days multivitamin 1 tab PO DAILY naproxen 500 mg PO BID 7 days nicotine 1 patch transdermal DAILY 14 days nicotine 1 patch transdermal DAILY 14 days pantoprazole 40 mg PO DAILY polyethylene glycol 3350 (Miralax) 238 grams PO ONCE PRN 1 day sumatriptan succinate take 1 tab at onset of headache; if no relief, may repeat 1 tab after at least 2 hrs; max = 2 tabs/24 hrs PO 30 days trazodone 300 mg (2 x 150 mg) PO BEDTIME trazodone 100 mg PO BEDTIME 30 days Do you need a note to return to daycare/school/sports/work: No HPI EP right knee pain/numbness 2 HPI0 Details Patient is 52-year-old female came in today to be evaluated for right knee pain which has been happening off and on On examination there is no swelling of knee hand range of motion is intact However there is crackling with knee flexion I see that she is already taking diclofenac for some other medical problem I have sent prednisone 20 mg to be taken once a day with food for 5 days X-ray of knee ordered. Follow-up with primary care [facility] Medical History Osteoarthritis Trigger finger Carpal tunnel syndrome Hyperlipidemia LDL goal <100 Essential hypertension Hyperlipidemia Cellulitis, umbilical Surgical History History of foot surgery History of carpal tunnel release H/O: hysterectomy Family History Father Diabetes Hypertension Stroke Heart attack, Onset Age: 50 Mother Multiple sclerosis Brother In good health Son In good health Son In good health Other Patient denies medical problems Social History Household Members: Spouse and Other Housing: Apartment Alcohol intake: current Alcohol intake frequency: holidays/special occasions only Patient Tobacco Use Status: Current everyday Tobacco user Tobacco use type: Cigarette Cigarette Packs Per Day: 0.5 Cigarettes Per Day: 6 Years Smoked: 43-started at age 8 e-Cigarette/Vaping Use: Never Used Second Hand Smoke Exposure: No service: No Current occupational status: disabled Cognitive needs: No Hearing needs: No Vision needs: Yes (glasses) Review of Systems Const All systems reviewed & are unremarkable except as noted in HPI and below Physical Exam Vital Signs: Last Vital Signs Temp 97.2 F 08/12/23 12:26 Pulse 95 08/12/23 12:26 BP 136/70 08/12/23 12:26 Pulse Ox 100 08/12/23 12:26 Oxygen Delivery Method Room Air 08/12/23 12:26 BMI result Body Mass Index 36.3 Const General: no acute distress Orientation/consciousness: patient oriented x3 Eyes General: appearance normal, both eyes and all related structures Resp Effort & Inspection: normal respiratory effort and able to speak in complete sentences Auscultation: clear to auscultation bilaterally Cardio Other: S1 S2 Neuro General: patient oriented x3 Extrem Elbow/forearm/wrist images: 2 1. Tender to pressure, range of motion intact, no swelling Psych Mental Status: mental status grossly normal Assessment & Plan Assessment & Plan (1) Knee pain, right: Code(s): M25.561 - Pain in right knee Qualifiers: Chronicity: acute Qualified Code(s): M25.561 - Pain in right knee Plan Patient is 52-year-old female came in today to be evaluated for right knee pain which has been happening off and on On examination there is no swelling of knee hand range of motion is intact However there is crackling with knee flexion I see that she is already taking diclofenac for some other medical problem I have sent prednisone 20 mg to be taken once a day with food for 5 days X-ray of knee ordered. Follow-up with primary care Medications: New 2 prednisone 20 mg PO DAILY 5 tabs 0RF 5 days Coding Level of Care Code Est Pt Level 3 (36927) Diagnoses Acute pain of right knee M25.561 Chronicity: acute
[2023-08-12 12:26] VITALS: BP 136/70; PULSE 95; TEMP 36.2; O2SAT 100; BMI 36.3
== END 2023-08-12 13:55 | disposition home or self-care (01) ==
PROVIDERS: PCP Physician Assistant; Visit Provider Internal Medicine
DX: M25.561 Pain in right knee (principal)
CPT/HCPCS: 99213

== ENCOUNTER 2023-08-12 12:36 | Outpatient (REF) | payer MEDICARE, MEDICAID, SELFPAY ==
--- NOTE | ~2023-08-12 | XR_ITS ---
EXAMINATION: XR KNEE, RIGHT CLINICAL INFORMATION: Pain COMPARISON: Previous x-ray most recent October 2019 TECHNIQUE: Four views of the right knee. FINDINGS: Bone alignment is normal. No fracture or dislocation. Normal joint spaces. Small osteophyte at the quadriceps tendon insertion to the patella. No joint effusion. XR/XR knee RT 4V IMPRESSION: Small patellar osteophyte otherwise unremarkable exam.
== END 2023-08-12 12:37 | disposition home or self-care (01) ==
LOC: HO.HMGCX 12:36
PROVIDERS: PCP Physician Assistant; Visit Provider Internal Medicine
DX: M25.561 Pain in right knee (principal)
CPT/HCPCS: 73564

== ENCOUNTER 2023-09-15 09:40 | Outpatient (REF) | payer MEDICARE, MEDICAID, SELFPAY ==
[2023-09-15 12:37] LABS: Creatinine Urine 136.89 mg/dL; Microalbum/Creatinine Ratio Ur 12.4 ug/mg cr (<30)
== END 2023-09-15 09:41 | disposition home or self-care (01) ==
LOC: HO.LAB 09:40
PROVIDERS: PCP Physician Assistant; Visit Provider Physician Assistant
DX: E11.41 Type 2 diabetes mellitus with diabetic mononeuropathy (principal)
CPT/HCPCS: 82043; 82570

== ENCOUNTER 2023-09-16 10:57 | Outpatient (AMB) | payer MEDICARE, MEDICAID, SELFPAY ==
[2023-09-16 11:03] VITALS: BP 107/64; PULSE 84; O2SAT 95; BMI 38.5
--- NOTE | 2023-09-16 11:03 | MHC.PC.OV ---
Vital Signs 09/16/23 11:03 Height 5 ft 3 in Weight 217 lb 8 oz BMI 38.5 BP 107/64 Blood Pressure Location Lt brachial Position Sitting Pulse 84 Pulse Source Pulse Oximeter Pulse Oximetry (%) 95 Oxygen Delivery Method Room Air Intake Visit Reasons: f/u HTN/ DMII Tobacco Sprayer Required: No Accompanied by: Self / Same As Patient Allergies morphine [Morphine] Allergy (Intermediate, Verified 09/16/23 11:35) VOMITING oxycodone [Percocet] Allergy (Unknown, Verified 09/16/23 11:35) Vomiting Medication List - Last Reconciled 09/16/23 by Festus Lang PA-C albuterol sulfate 90 mcg/actuation (Ventolin HFA) 1 puff inhalation QID 30 days allopurinol 100 mg PO DAILY arm brace (Elbow Compression Sleeve) As directed atorvastatin 20 mg PO DAILY baclofen 10 mg PO BID 90 days bisacodyl (Dulcolax (bisacodyl)) 20 mg (4 x 5 mg) PO ONCE 1 day blood sugar diagnostic (onefortyuch Verio test strips) 1 strip miscellaneous DAILY clonidine HCl 0.3 mg PO BEDTIME cyanocobalamin (vitamin B-12) (Vitamin B-12) 1,000 mcg PO DAILY diclofenac sodium 75 mg PO BID 90 days ergotamine-caffeine 1-100 mg 1 tab PO Q30M PRN hydrocodone-acetaminophen 5-325 mg 1 tab PO BID PRN 4 days hydroxyzine HCl 10 mg PO BEDTIME 30 days losartan-hydrochlorothiazide 50-12.5 mg 1 tab PO DAILY 90 days magnesium oxide 250 mg PO DAILY 90 days montelukast 10 mg PO DAILY 90 days multivitamin 1 tab PO DAILY nicotine 1 patch transdermal DAILY 14 days nicotine 1 patch transdermal DAILY 14 days pantoprazole 40 mg PO DAILY prednisone 20 mg PO DAILY 5 days trazodone 300 mg PO BEDTIME 90 days trazodone 100 mg PO BEDTIME 30 days Tobacco use date assessed: 04/09/23 Dental Screening Dental Screen Date: 09/16/23 Did you have a dental visit in the last 12 months?: No Did you have a dental problem in the last 6 months where you did not have access to dental care?: No Was dental information given to patient?: Patient has dentist HPI f/u HTN/ DMII HPI Details Patient is a 52-year-old female here today for a follow-up visit? Patient has a past medical history significant for type 2 diabetes, obesity, anxiety, hyperlipidemia, smoker concerns--> she reports she is concerned about having MS as her mother and grandmother both were diagnosed with MS. She does report some dizziness and left lower extremity paresthesias from time to time. She gets concerned about her left lower extremity paresthesias as she feels very numb at times when walking. Also reports often getting boils over her breast that often spontaneously discharge purulent material. She does use antibacterial soap and tries to keep his skin is clean and dry as possible. .. DMII:? Diabetes well controlled, has managed to lose weight since last office visit. A1c today acceptable (6.0) ? REports sugars have been 120-150s. 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 medications to control her diabetes. ? .? She is now seeing a dietitian regularly and has been making adjustments in her diet. .. Obesity: She does understand she has gained weight since last office visit. .. Family history of coronary artery disease: Patient continues on moderate dose statin and cholesterol panel acceptable. Unfortunately having myalgias which thought to be due to her statin medication. Will reduce her dose statin potency .. HTN: Blood pressure is on low side today , will discontinue hydrochlorothiazide and have patient monitor blood pressure at home with goal blood pressure to be above 100/60 in below 140/90 .. Tobacco dependency:? Unfortunately has started smoking again. Not interested in quitting at this time? She does have nicotine patches available to her. .. .. Migraines:? Patient reports she has had a long history of migraines, was on sumatriptan in the past though was ineffective. Now on ergotamine- caffeine which has been very effective for her migraines. [facility] Medical History Osteoarthritis Trigger finger Carpal tunnel syndrome Hyperlipidemia LDL goal <100 Essential hypertension Hyperlipidemia Cellulitis, umbilical Surgical History History of foot surgery History of carpal tunnel release H/O: hysterectomy Family History Father Diabetes Hypertension Stroke Heart attack, Onset Age: 50 Mother Multiple sclerosis Brother In good health Son In good health Son In good health Other Patient denies medical problems Social History Household Members: Spouse and Other Housing: Apartment Alcohol intake: current Alcohol intake frequency: holidays/special occasions only Patient Tobacco Use Status: Current everyday Tobacco user Tobacco use type: Cigarette Cigarette Packs Per Day: 0.5 Cigarettes Per Day: 6 Years Smoked: 43-started at age 8 e-Cigarette/Vaping Use: Never Used Second Hand Smoke Exposure: No service: No Current occupational status: disabled Cognitive needs: No Hearing needs: No Vision needs: Yes (glasses) Questionnaire Thrive Questionnaire Date Thrive assessed: 01/07/23 SUSANA-7 AMB Questionnaire SUSANA-7 Date SUSANA - 7 assessed: 12/02/21 Feeling nervous, anxious, or on edge: 0 = Not at all Not being able to stop or control worryin = Not at all Worrying too much about different things: 0 = Not at all Trouble relaxin = Not at all Being so restless that it is hard to sit still: 0 = Not at all Becoming easily annoyed or irritable: 0 = Not at all Feeling afraid as if something awful might happen: 0 = Not at all Total SUSANA-7 score (0-4 normal; 5-9 mild; 10-14 moderate; 15-21 severe): 0 Source: Developed by Drs. Eduard Sherwood, Arlen Valdes, Rad Yao and colleagues, with an educational enrique from [employer]. SUSANA-7 Assessment Billing SUSANA-7 Assessment Tool: SUSANA-7 Assessment 23764 Review of Systems Const Denies headache(s) Eyes Denies loss of vision ENT Denies vertigo, Denies dizziness, Denies headache(s) and Denies sore throat Card Denies chest pain, Denies leg edema and Denies lightheadedness Resp Denies cough, Denies hemoptysis and Denies wheezing GI Denies abdominal pain, Denies melena, Denies constipation, Denies diarrhea and Denies vomiting Denies urinary frequency, Denies dysuria and Denies urinary urgency Musc Denies arthralgias, Denies joint swelling, Reports numbness and Reports tingling Neuro Details: + positive numbness and tingling in left lower extremity Denies Abnormal speech present, Denies behavioral changes, Denies vertigo, Denies dizziness, Denies headache(s), Denies loss of vision, Denies memory loss, Reports numbness and Reports tingling Psych Denies anxiety, Denies behavioral changes, Denies depression, Denies memory loss and Denies panic attacks Otis/Lymph Denies easy bleeding and Denies easy bruising Aller/Immun Denies wheezing Physical exam (Primary Care) Vital Signs: Last Vital Signs Pulse 84 09/16/23 11:03 BP 107/64 09/16/23 11:03 Pulse Ox 95 09/16/23 11:03 Oxygen Delivery Method Room Air 09/16/23 11:03 BMI result Body Mass Index 38.5 BMI Assessment/Plan discussion: High Tobacco/Smoking Status: Tobacco use Status Tobacco use date assessed 04/09/23 09/16/23 11:06 Patient Tobacco Use Status Current everyday Tobacco 09/16/23 11:06 Tobacco use type Cigarette 09/16/23 11:06 e-Cigarette/Vaping Use Never Used 09/16/23 11:06 Are you ready to quit: No Tobacco cessation counseling provided: Yes Items discussed: Nicotine replacement and QuitWorks Relapse Prevention: discussed the importance of a supportive environment, discussed negative mood or depression after quitting, weight gain after smoking is common and discussed dietary, exercise and/or lifestyle changes Number of minutes spent counselin CPT code: 83517 - 4-10 Minutes Thrive Assessment: Date of Thrive Assessment Date Thrive assessed 01/07/23 09/16/23 11:06 Const Other: Morbidly obese General: no acute distress, alert and awake Nutritional Appearance: well nourished Orientation/consciousness: oriented to person, oriented to place and oriented to time HENMT Ears: TM's normal bilaterally General nose exam: Normal nasal mucous membranes and turbinates present Eyes Conjunctivae: conjunctivae normal Sclerae: sclerae normal Pupils: Equal, round and reactive pupils present Neck Neck: Yes no lymphadenopathy and Yes no JVD Thyroid: Thyroid normal Carotids: no bruits Resp Effort & Inspection: normal respiratory effort and not tachypneic Auscultation: no crackles, no rales, no rhonchi and no wheezes Cardio Rate: regular rate Rhythm: regular rhythm Heart sounds: no murmurs and normal S1 and S2 GI Palpation (GI): Soft to palpation, nontender, no hepatomegaly and no splenomegaly Auscultation: normal bowel sounds Skin General skin exam: no rashes or lesions noted and dry skin Neuro General: oriented to person, oriented to place and oriented to time Cranial nerves: Yes Equal, round and reactive pupils present Speech: No Abnormal speech present Gait exam (Neuro): Normal gait present Motor exam (neuro): no tremor noted Extrem Right upper extremity: full ROM Left upper extremity: full ROM Right lower extremity: full ROM; no edema Left lower extremity: full ROM; no edema Psych Mental Status: mental status grossly normal Speech and movement: Normal speech and movement present Affect: normal affect Attitude: cooperative Thought process: Normal thought process present Results AMB Hemoglobin A1c AMB Hemoglobin A1c 6.0 % Last Edit by Sujatha Velez on 09/16/23 11:17 Results Reviewed Results Reviewed: Laboratory Last Values Hgb A1c (Clinic) 6.0 % (4.0-6.0) 09/16/23 11:01 Assessment and Plan Assessment & Plan (1) Hyperlipidemia: Code(s): E78.5 - Hyperlipidemia, unspecified Qualifiers: Hyperlipidemia type: mixed hyperlipidemia Qualified Code(s): E78.2 - Mixed hyperlipidemia Plan: Lipid panel acceptable. We have reduced her statin potency. Arthritic pain have been a bit better. . (2) Myalgia: Code(s): M79.10 - Myalgia, unspecified site Plan: Did have elevated creatinine kinase. Thus reduced her potency statin. Myalgias have been better (3) Type 2 diabetes mellitus without complications: Code(s): E11.9 - Type 2 diabetes mellitus without complications Qualifiers: Diabetes mellitus halfway insulin use: without salvage determiner use Qualified Code(s): E11.9 - Type 2 diabetes mellitus without complications Plan: Patient's type 2 diabetes well controlled at this time with lifestyle modification. Will continue to follow fasting blood sugar and A1c with goal A1c to be below 7.0 (4) Obese: Code(s): E66.9 - Obesity, unspecified Qualifiers: Body mass index: BMI 40.0-44.9 Obesity classification: adult class 3 (BMI >= 40) Obesity type: due to excess calories Serious obesity comorbidity presence: with serious comorbidity Qualified Code(s): E66.01 - Morbid (severe) obesity due to excess calories; Z68.41 - Body mass index [BMI]40.0-44.9, adult Plan: Unfortunately gained weight since last office visit.. Patient does understand her BMI is well over 30 will work on being more physically active and adapting to better eating habits to reduce her weight (5) Smoker: Code(s): F17.200 - Nicotine dependence, unspecified, uncomplicated Plan: Unfortunately patient continues to smoke 4-5 cigarettes per day, she does understand she needs to quit though is concerned about quitting . Finds it very difficult to quit due to a partner also smoking. Offered her nicotine replacement though she declines. (6) Family history of MS (multiple sclerosis): Code(s): Z82.0 - Family history of epilepsy and other diseases of the nervous system (7) Dizziness: Code(s): R42 - Dizziness and giddiness (8) Neuropathy of left lower extremity: Code(s): G57.92 - Unspecified mononeuropathy of left lower limb Plan: Patient reports intermittent episodes of left lower extremity numbness and tingling. Will send for EMG to evaluate for neuropathy in the left lower extremity. Advised on therapy (9) Carbuncle and furuncle of trunk: Code(s): L02.239 - Carbuncle of trunk, unspecified; L02.229 - Furuncle of trunk, unspecified Plan: As per HPI will supply patient with antibiotic. Orders: Orders AMB Hemoglobin A1c Today E11.9 - Type 2 diabetes mellitus without complications Comprehensive [place]. Panel Fast Today E11.9 - Type 2 diabetes mellitus without complications Lipid Panel Today E78.5 - Hyperlipidemia, unspecified Complete Blood Count no Diff Today E78.5 - Hyperlipidemia, unspecified MR head/brain wo con Today G57.91 - Unspecified mononeuropathy of right lower limb, R42 - Dizziness and giddiness, Z82.0 - Family history of epilepsy and other diseases of the nervous system NE electromyogram (EMG) Today G57.92 - Unspecified mononeuropathy of left lower limb PT Evaluation and Treatment Today G57.92 - Unspecified mononeuropathy of left lower limb Medications: New doxycycline hyclate 100 mg PO DAILY 10 tabs 0RF 10 days L02.229 - Furuncle of trunk, unspecified, L02.239 - Carbuncle of trunk, unspecified losartan 50 mg PO DAILY 90 tabs 1RF I10 - Essential (primary) hypertension Refilled albuterol sulfate 90 mcg/actuation (Ventolin HFA) 1 puff inhalation QID 8.5 grams 3RF 30 days R05 - Cough baclofen 10 mg PO BID 180 tabs 2RF 90 days M89.8X1 - Other specified disorders of bone, shoulder cyanocobalamin (vitamin B-12) (Vitamin B-12) 1,000 mcg PO DAILY 90 tabs 1RF diclofenac sodium 75 mg PO BID 180 tabs 2RF 90 days M25.531 - Pain in right wrist montelukast 10 mg PO DAILY 90 tabs 2RF 90 days J30.9 - Allergic rhinitis, unspecified trazodone 300 mg PO BEDTIME 90 tabs 1RF 90 days G47.00 - Insomnia, unspecified allopurinol 100 mg PO DAILY 30 tabs 11RF E11.41 - Type 2 diabetes mellitus with diabetic mononeuropathy atorvastatin 20 mg PO DAILY 90 tabs 1RF E78.5 - Hyperlipidemia, unspecified clonidine HCl 0.3 mg PO BEDTIME 90 tabs 2RF F41.9 - Anxiety disorder, unspecified ergotamine-caffeine 1-100 mg do not exceed 6 mg per day or 10 mg per wk 1 tab PO Q30M PRN 12 tabs 3RF migraine headache G43.009 - Migraine without aura, not intractable, without status migrainosus hydroxyzine HCl 10 mg PO BEDTIME 30 tabs 4RF 30 days F41.9 - Anxiety disorder, unspecified, J30.89 - Other allergic rhinitis magnesium oxide 250 mg PO DAILY 90 tabs 1RF 90 days M79.10 - Myalgia, unspecified site pantoprazole 40 mg PO DAILY 90 tabs 1RF K21.9 - Gastro-esophageal reflux disease without esophagitis trazodone 100 mg PO BEDTIME 30 tabs 6RF 30 days G47.00 - Insomnia, unspecified Discontinued hydrocodone-acetaminophen 5-325 mg Partial Fill upon patient request. Discontinued Reason: Doctor's Order 1 tab PO BID 4 days PRN 8 tabs 0RF pain M77.11 - Lateral epicondylitis, right elbow Coding Level of Care Code Est Pt Level 4 (56909) Diagnoses Mixed hyperlipidemia E78.2 Hyperlipidemia type: mixed hyperlipidemia Myalgia M79.10 Type 2 diabetes mellitus without complication, without long-term current use of insulin E11.9 Diabetes mellitus halfway insulin use: without salvage determiner use Class 3 severe obesity due to excess calories with serious comorbidity and body mass index (BMI) of 40.0 to 44.9 in adult E66.01; Z68.41 Body mass index: BMI 40.0-44.9 Obesity classification: adult class 3 (BMI >= 40) Obesity type: due to excess calories Serious obesity comorbidity presence: with serious comorbidity Smoker F17.200 Family history of MS (multiple sclerosis) Z82.0 Dizziness R42 Neuropathy of left lower extremity G57.92 Carbuncle and furuncle of trunk L02.239; L02.229 Additional Codes Vital Signs *Quality* - CPT code: 29411 - 4-10 Minutes ([id number]) SUSANA-7 Assessment Billing - SUSANA-7 Assessment Tool: SUSANA-7 Assessment 23582 ([id number])
== END 2023-09-16 12:01 | disposition home or self-care (01) ==
PROVIDERS: PCP Physician Assistant; Visit Provider Physician Assistant
DX: E11.41 Type 2 diabetes mellitus with diabetic mononeuropathy (principal); E66.01 Morbid (severe) obesity due to excess calories; Z68.41 Body mass index [BMI] 40.0-44.9, adult; E78.2 Mixed hyperlipidemia; M79.10 Myalgia, unspecified site; F17.210 Nicotine dependence, cigarettes, uncomplicated; Z82.0 Family history of epilepsy and other diseases of the nervous system; R42 Dizziness and giddiness; G57.92 Unspecified mononeuropathy of left lower limb; L02.239 Carbuncle of trunk, unspecified; L02.229 Furuncle of trunk, unspecified
CPT/HCPCS: 83036; 99214

== ENCOUNTER → 2023-10-29 10:01 | Outpatient (BNVA) | payer MEDICARE, MEDICAID, SELFPAY | PROVIDERS: PCP Physician Assistant; Visit Provider Physician Assistant Surgical ==

== ENCOUNTER 2023-10-30 09:56 | Outpatient (REF) | payer MEDICARE, MEDICAID, SELFPAY ==
--- NOTE | 2023-10-30 09:59 | EMG_ITS ---
Chief complaint: Numbness on left foot, milder on right foot, chronic back pain History of controlled diabetes Reason for referral: Evaluate for neuropathy Referred by: Festus WORRELL Procedure done: Bilateral lower extremity NCS/EMG Precautions and/or limitations: None The limb temperature was monitored continuously and remained between 32-36 degrees C during the performance of the NCS. Nerve Conduction Studies Anti Sensory Summary Table ?Stim Site NR Onset (ms) Norm Onset (ms) Peak (ms) Norm Peak (ms) O-P Amp (?V) Norm O-P Amp Site1 Site2 Delta-0 (ms) Dist (cm) Alex (m/s) Norm Alex (m/s) Left Sural Anti Sensory (Lat Mall) Calf ? 2.3 3.3 <4.0 8.6 >5.0 Calf Lat Mall 2.3 14.0 61 Right Sural Anti Sensory (Lat Mall) Calf ? 2.6 3.5 <4.0 8.3 >5.0 Calf Lat Mall 2.6 14.0 54 Motor Summary Table ?Stim Site NR Onset (ms) Norm Onset (ms) O-P Amp (mV) Norm O-P Amp iAmp (mV) Amp (1st) (%) Site1 Site2 Delta-0 (ms) Dist (cm) Alex (m/s) Norm Alex (m/s) Left Peroneal Motor (Ext Dig Brev) Ankle ? 5.1 <4.0 3.7 >2.5 4.6 100.0 Ankle Ext Dig Brev 5.1 0.0 B Fib ? 11.8 3.3 4.1 89.2 B Fib Ankle 6.7 28.5 43 >40 Poplt ? 13.0 3.1 3.9 83.8 Poplt B Fib 1.2 5.0 42 >40 Right Peroneal Motor (Ext Dig Brev) Ankle ? 5.1 <4.0 5.3 >2.5 6.5 100.0 Ankle Ext Dig Brev 5.1 0.0 B Fib ? 11.4 5.8 7.2 109.4 B Fib Ankle 6.3 30.5 48 >40 Poplt ? 12.1 5.6 6.9 105.7 Poplt B Fib 0.7 4.5 64 >40 Left Tibial Motor (Abd Burnham Brev) Ankle ? 4.5 <5 14.0 >2.5 18.0 100.0 Ankle Abd Burnham Brev 4.5 0.0 Knee ? 13.0 10.7 12.9 76.4 Knee Ankle 8.5 35.0 41 >40 Right Tibial Motor (Abd Burnham Brev) Ankle ? 3.6 <5 14.2 >2.5 21.5 100.0 Ankle Abd Burnham Brev 3.6 0.0 Knee ? 11.3 7.5 10.7 52.8 Knee Ankle 7.7 38.0 49 >40 EMG ?Side Muscle Nerve Root Ins Act Fibs Psw Amp Dur Poly Recrt Int Pat Comment Right AbdHallucis MedPlantar S1-2 Nml Nml Nml Incr Incr 0 Nml Complete Right AntTibialis Dp Br Peron L4-5 Nml Nml Nml Nml Nml 0 Nml Complete Right PostTibialis Tibial L5, S1 Nml Nml Nml Nml Nml 0 Nml Complete Right MedGastroc Tibial S1-2 Nml Nml Nml Nml Nml 0 Nml Complete Right VastusMed Femoral L2-4 Nml Nml Nml Nml Nml 0 Nml Complete Left AbdHallucis MedPlantar S1-2 Nml Nml Nml Incr Incr 0 Nml Complete Left AntTibialis Dp Br Peron L4-5 Nml Nml Nml Nml Nml 0 Nml Complete Left PostTibialis Tibial L5, S1 Nml Nml Nml Nml Nml 0 Nml Complete Left MedGastroc Tibial S1-2 Nml Nml Nml Nml Nml 0 Nml Complete Left VastusMed Femoral L2-4 Nml Nml Nml Nml Nml 0 Nml Complete Paraspinal EMG ?Side Muscle Nerve Root Ins Act Fibs Psw Comment Right Lumbar Upper Rami Nml Nml Nml Right Lumbar Mid Rami Nml Nml Nml Right Lumbar Lower Rami Nml Nml Nml Left Lumbar Upper Rami Nml Nml Nml Left Lumbar Mid Rami Nml Nml Nml Left Lumbar Lower Rami Nml Nml Nml FINDINGS: Bilateral peroneal nerves showed prolonged distal latency, normal amplitude and normal conduction velocity. No conduction block seen. All other nerves tested were within normal. Concentric needle EMG was performed in selected muscles of the bilateral lower extremity and lumbar paraspinals. Study revealed signs of electric abnormalities as shown in the table below. Bilateral AH muscle showed increased duration and amplitude. No denervation seen on lumbar paraspinals. IMPRESSION: 1. This is an abnormal study. 2. Cannot rule out a chronic L5-S1 radiculopathy. 3. Sural SNAPs were preserved. Therefore peripheral neuropathy is less likely. CLINICAL COMMENT: Further clinical correlation recommended. Consider lumbar imaging if lumbar radiculopathy suspected. Thank you for your kind referral. Shelbi Mejia MD, SHAKILA Board Certified, [place] [employer] and [employer] (ABPMR) Board Certified, [place] [employer] Electro[employer] (ABEM) CODIN 42852 x 2 MTDD
== END 2023-10-30 09:57 | disposition home or self-care (01) ==
LOC: HO.NEURO 09:56
PROVIDERS: PCP Physician Assistant; Visit Provider Physician Assistant
DX: G57.92 Unspecified mononeuropathy of left lower limb (principal)
CPT/HCPCS: 95886; 95909

== ENCOUNTER → 2023-10-30 09:59 | Outpatient (BNV) | payer MEDICARE, MEDICAID, SELFPAY | PROVIDERS: PCP Physician Assistant; Visit Provider Physical Medicine & Rehabilitation | DX: M79.671 Pain in right foot (principal); M79.672 Pain in left foot; R20.2 Paresthesia of skin; M54.50 Low back pain, unspecified | CPT/HCPCS: 95886; 95909 ==

== ENCOUNTER 2023-11-04 09:01 | Outpatient (REF) | payer MEDICARE, MEDICAID, SELFPAY ==
--- NOTE | ~2023-11-04 | XR_ITS ---
EXAMINATION: XR LUMBOSACRAL SPINE CLINICAL INFORMATION: Lower back pain. COMPARISON: Lumbar spine radiographs dated 04/05/2020. TECHNIQUE: AP and lateral views of the lumbar spine and lateral view of the lumbosacral junction. FINDINGS: There is mild bony demineralization. There is a mild lumbar dextroscoliosis. At L2-L3, there is moderate degenerative disc disease, with vacuum phenomenon. At L3-L4, there is marked degenerative disc disease, with vacuum phenomenon. There are Schmorl's nodes at L3-L4. No acute fracture or spondylolisthesis is seen. There is multi-level marked thoracolumbar spondylosis. The posterior elements are intact. There is multi-level lumbar facet arthropathy, most pronounced at L4-L5 and L5-S1. The paravertebral soft tissues are unremarkable. XR/XR lumbar spine 2-3V IMPRESSION: There is multi-level lumbar degenerative disc disease, spondylosis and facet arthropathy. Degenerative disc disease is most pronounced at L2-L3, where it is moderate and at L3-L4, where it is marked.
== END 2023-11-04 09:02 | disposition home or self-care (01) ==
LOC: HO.XRAY 09:01
PROVIDERS: PCP Physician Assistant; Visit Provider Physician Assistant
DX: M54.50 Low back pain, unspecified (principal)
CPT/HCPCS: 72100

== ENCOUNTER 2023-11-17 08:05 | Outpatient (AMB) | payer MEDICARE, MEDICAID, SELFPAY ==
--- OUTSIDE RECORDS SUMMARY | 2023-11-17 08:07 | XMS_ITS | Patient Health Record ---
Author Name Unknown Organization [facility] Address [address], [place] [id number] Care Team Providers Care Urgent Care Physician Assistant Name Role Phone Reymundo Bazzi Primary Care Provider Unavailab le REASON FOR REFERRAL No Information MEDICATIONS Medication SIG (Take, Route, Fr equency, Duration) Notes Start Date End Date Status traZODone 100mg 2 tabs HS 10/12/2023 Act lorena acetaminophen 325 mg 2 tab(s) orally Q4H for 3 day(s) 08/09/2009 Active Fioricet 10/12/2023 Active PriLOSEC OTC 10/12/2023 Active IMMUNIZATIONS Vaccine Route Administration Date Status Comme nts Influenza Unknown 07/31/2009 Administered PPD planted Unknown 07/31/2009 Administered Influenza Unknown 07/31/2009 Administered PPD planted Unknown 08/07/2009 Administered PPD negative Unknown 08/10/2009 Administered SOCIAL HISTORY Sex Assigned At : Social History Observation Description Sex Assigned At Unknown PROBLEMS Problem Type ICD Code Onset Dates Problem Status W/U Status Risk SNOMED Code Notes Problem Tobacco use disorder (305.1) Active confirmed Tobacco use ([id number]) PLAN OF TREATMENT No Information Insurance Providers Payer Name Payer Address Payer Phone Subscriber Number Group Number Insured Name Patient Relationship to Insured Coverage Start Date Coverage End Date MD Medicaid Standard [address] [place] [address] [phone] [id number] Vickie Olivares Self - patient is the insured MEDICAL (GENERAL) HISTORY Medical History History ICD Code pt. reports asthma, migraines, cholester emia, GERD, insomnia Hospitalization History Reason Date(Month/Year) MEALNY infection in skin-3 days 2008
--- NOTE | 2023-11-17 10:56 | A.OFFVIS_ITS ---
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 Allergies morphine [Morphine] Allergy (Intermediate, Verified 11/17/23 10:56) VOMITING oxycodone [Percocet] Allergy (Unknown, Verified 11/17/23 10:56) Vomiting Medication List - Last Reconciled 11/17/23 by Isaac Mendez MD acetaminophen ER 650 mg PO Q12H PRN 10 days albuterol sulfate 90 mcg/actuation (Ventolin HFA) 1 puff inhalation QID 30 days allopurinol 100 mg PO DAILY atorvastatin 20 mg PO DAILY baclofen 10 mg PO BID 90 days bisacodyl (Dulcolax (bisacodyl)) 20 mg (4 x 5 mg) PO ONCE 1 day blood sugar diagnostic ([employer] Verio test strips) 1 strip miscellaneous DAILY clonidine HCl 0.3 mg PO BEDTIME cyanocobalamin (vitamin B-12) (Vitamin B-12) 1,000 mcg PO DAILY diclofenac sodium 75 mg PO BID 90 days ergotamine-caffeine 1-100 mg 1 tab PO Q30M PRN hydroxyzine HCl 10 mg PO BEDTIME 30 days losartan 50 mg PO DAILY magnesium oxide 250 mg PO DAILY 90 days montelukast 10 mg PO DAILY 90 days multivitamin 1 tab PO DAILY nicotine 1 patch transdermal DAILY 14 days nicotine 1 patch transdermal DAILY pantoprazole 40 mg PO DAILY trazodone 300 mg PO BEDTIME 90 days trazodone 100 mg PO BEDTIME 30 days 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 HPI Details Start time: 10.49am, End time: 11.42am ?I spent 47 minutes speaking with the patient on the phone plus an additional 5 minutes reviewing and updating records for a total of 52 minutes HPI Comments History of Present Illness Details Previous weight loss efforts: OTC pills Wakes up: 9am, Sleeps: 12.30am Breakfast: skips Lunch: 12.30pm (steak and potatoes) Dinner: 6pm (sandwich) Snacks: 8pm (cookie) Exercise: walking outside, no equipment Fluids: Coffee (1 cup/d with creamer), tea: none, soda: Coke zero, juice: 1 glass x2-3/wk, ETOH: none PFSH Medical History (Updated 11/17/23 @ 11:03 by Isaac Mendez MD) Hyperuricemia Asthma Obese Osteoarthritis Trigger finger Carpal tunnel syndrome Hyperlipidemia LDL goal <100 Essential hypertension Hyperlipidemia Cellulitis, umbilical Surgical History (Updated 11/17/23 @ 11:05 by Isaac eMndez MD) History of laparoscopic appendectomy History of foot surgery History of carpal tunnel release H/O: hysterectomy Family History Father Diabetes Hypertension Stroke Heart attack, Onset Age: 50 Mother Multiple sclerosis Brother In good health Son In good health Son In good health Other Patient denies medical problems Social History Household Members: Spouse and Other Housing: Apartment Alcohol intake: current Alcohol intake frequency: holidays/special occasions only Patient Tobacco Use Status: Current everyday Tobacco user Tobacco use type: Cigarette Cigarette Packs Per Day: 0.5 Cigarettes Per Day: 6 Years Smoked: 43-started at age 8 e-Cigarette/Vaping Use: Never Used Second Hand Smoke Exposure: No service: No Current occupational status: disabled Cognitive needs: No Hearing needs: No Vision needs: Yes (glasses) Assessment & Plan Assessment & Plan (1) Obese: Code(s): E66.9 - Obesity, unspecified Qualifiers: Obesity type: due to excess calories Obesity classification: adult cla ss 3 (BMI >= 40) Serious obesity comorbidity presence: with serious comorbidity Body mass index: BMI 40.0-44.9 Qualified Code(s): E66.01 - Morbid (severe) obesity due to excess calories; Z68.41 - Body mass index [BMI]40.0-44.9, adult Plan: 1.? Plan for lap sleeve gastrectomy. If diaphragmatic or ventral hernias are present at time of surgery, these will be repaired laparoscopically as well. Risks and complications were discussed in detail including possible conversion to an open procedure, anastomotic leak, bleeding requiring transfusion, small bowel obstruction, , DVT and pulmonary embolism, cardiac, or pulmonary co mplications, as alf complications such as anastomotic ulcer, insufficient weight loss and vitamin deficiencies. I emphasized the importance of close follow-up, adherence to instructions and good communication. 2. Nutritional counseling. Start with 2 Isopure protein (buy at [email or web address], [employer], [employer], [facility]) shakes (HALF scoop EACH in 8oz water) at 10am-12pm and 1pm-3pm, 1 protein bar (Zone Perfect protein bars, buy at [email or web address], ?[employer], [facility], or [employer]) at 4pm-6pm, dinner at 7pm (8 forks of protein and 8 forks of salad/vegetables), one more protein bar after dinner at 9pm-11pm. If you feel hungry, you can have another HALF protein bar at 11.30pm-12.30am. So you do 2 protein shakes, 2.5 protein bars and one meal per day. Meal to include lean meat (beef, fish, pork, turkey, chicken), or persian yogurt, or egg whites, or beans with a salad with olive oil and fruits (berries, pears, apples, kiwi). Avoid salt, breads, potatoes, rice, pasta, desserts. 3. Each shake would be drunk slowly, like coffee in a period of 2 hours. 4. Cut each bar in 4 pieces and eat each piece in 30min ?to make each bar last 2 hours. 5. I emphasized the importance of measuring accurately the food portion and me asure it when serving the food in plate 6. The meal portions include 8 full-size forks of meat and 8 full-size forks of salad. You always eat the meat portion but you can replace up to 4 forks for sa lad/vegetables with rice, potatoes or pasta, or a fruit ?if you like. The less you do it the better weight loss will be. 7. One full-size fork is what it can be scooped on the fork without falling as derrick and not what can be bit with the fork. Use regular forks like those you find in a typical restaurant. 8.? Please send me weight measurements as soon as possible and then once a week. Always include your diet and exercise plan. 9. Start walking outside daily, tracking calories with a goal of 300 calories per day, daily. Goal is to burn 2000 calories per week on exercise, which means either 300 calories daily, or 400 calories 5 days per week, or 500 calories 4 days per week, or 650 calories 3 days per week. 10. The best choice would be to purchase a stationary bike, elliptical or treadmill at home that can track calories. Let me know if you do so I can give you an exercise plan. 11.?Goal is to lose at least 1.5-2lbs per week 12. Goal to lose 10% of your weight before surgery, which is about 21lbs. Ultimate weight goal: 193lbs before surgery 13. Please follow the diet plan exactly without any change. If you don't like something about the plan or you feel hungry you need to communicate with me so I can help you revise the plan. You should not change the plan yourself. Orders: Orders Insulin Today E66.9 - Obesity, unspecified, E78.5 - Hyperlipidemia, unspecified, E79.0 - Hyperuricemia without signs of inflammatory arthritis and tophaceous disease, I10 - Essential (primary) hypertension, J45.909 - Unspecified asthma, uncomplicated, K21.9 - Gastro-esophageal reflux disease without esophagitis, Z68.38 - Body mass index [BMI] 38.0-38.9, adult H Pylori Breath Test Today E66.9 - Obesity, unspecified, E78.5 - Hyperlipidemia, unspecified, E79.0 - Hyperuricemia without signs of inflammatory arthritis and tophaceous disease, I10 - Essential (primary) hypertension, J45.909 - Unspecified asthma, uncomplicated, K21.9 - Gastro-esophageal reflux disease without esophagitis, Z68.38 - Body mass index [BMI] 38.0-38.9, adult Lipid Panel Today E66.9 - Obesity, unspecified, E78.5 - Hyperlipidemia, unspecified, E79.0 - Hyperuricemia without signs of inflammatory arthritis and tophaceous disease, I10 - Essential (primary) hypertension, J45.909 - Unspecified asthma, uncomplicated, K21.9 - Gastro-esophageal reflux disease without esophagitis, Z68.38 - Body mass index [BMI] 38.0-38.9, adult Zinc Today E66.9 - Obesity, unspecified, E78.5 - Hyperlipidemia, unspecified, E79.0 - Hyperuricemia without signs of inflammatory arthritis and tophaceous disease, I10 - Essential (primary) hypertension, J45.909 - Unspecified asthma, uncomplicated, K21.9 - Gastro-esophageal reflux disease without esophagitis, Z68.38 - Body mass index [BMI] 38.0-38.9, adult Vitamin A Today E66.9 - Obesity, unspecified, E78.5 - Hyperlipidemia, unspecified, E79.0 - Hyperuricemia without signs of inflammatory arthritis and tophaceous disease, I10 - Essential (primary) hypertension, J45.909 - Unspecified asthma, uncomplicated, K21.9 - Gastro-esophageal reflux disease without esophagitis, Z68.38 - Body mass index [BMI] 38.0-38.9, adult TSH reflex Free T4 Today E66.9 - Obesity, unspecified, E78.5 - Hyperlipidemia, unspecified, E79.0 - Hyperuricemia without signs of inflammatory arthritis and tophaceous disease, I10 - Essential (primary) hypertension, J45.909 - Unspecified asthma, uncomplicated, K21.9 - Gastro-esophageal reflux disease without esophagitis, Z68.38 - Body mass index [BMI] 38.0-38.9, adult Vitamin D 25-OH Total Today E66.9 - Obesity, unspecified, E78.5 - Hyperlipidemia, unspecified, E79.0 - Hyperuricemia without signs of inflammatory arthritis and tophaceous disease, I10 - Essential (primary) hypertension, J45 .909 - Unspecified asthma, uncomplicated, K21.9 - Gastro-esophageal reflux disease without esophagitis, Z68.38 - Body mass index [BMI] 38.0-38.9, adult US abdomen comp w elastography Today E66.9 - Obesity, unspecified, E78.5 - Hyperlipidemia, unspecified, E79.0 - Hyperuricemia without signs of inflammatory arthritis and tophaceous disease, I10 - Essential (primary) hypertension, J45.909 - Unspecified asthma, uncomplicated, K21.9 - Gastro-esophageal reflux disease without esophagitis, Z68.38 - Body mass index [BMI] 38.0-38.9, adult ECG 12 lead EKG Today E66.9 - Obesity, unspecified, E78.5 - Hyperlipidemia, unspecified, E79.0 - Hyperuricemia without signs of inflammatory arthritis and tophaceous disease, I10 - Essential (primary) hypertension, J45.909 - Unspecified asthma, uncomplicated, K21.9 - Gastro-esophageal reflux disease without esophagitis, Z68.38 - Body mass index [BMI] 38.0-38.9, adult FL upper GI w air Today E66.9 - Obesity, unspecified, E78.5 - Hyperlipidemia, unspecified, E79.0 - Hyperuricemia without signs of inflammatory arthritis and tophaceous disease, I10 - Essential (primary) hypertension, J45.909 - Unspecified asthma, uncomplicated, K21.9 - Gastro-esophageal reflux disease without esophagitis, Z68.38 - Body mass index [BMI] 38.0-38.9, adult Hemoglobin A1c Today E66.9 - Obesity, unspecified, E78.5 - Hyperlipidemia, unspecified, E79.0 - Hyperuricemia without signs of inflammatory arthritis and tophaceous disease, I10 - Essential (primary) hypertension, J45.909 - Unspecified asthma, uncomplicated, K21.9 - Gastro-esophageal reflux disease without esophagitis, Z68.38 - Body mass index [BMI] 38.0-38.9, adult Complete Blood Count Auto Diff Today E66.9 - Obesity, unspecified, E78.5 - Hyperlipidemia, unspecified, E79.0 - Hyperuricemia without signs of inflammatory arthritis and tophaceous disease, I10 - Essential (primary) hypertension, J45.909 - Unspecified asthma, uncomplicated, K21.9 - Gastro-esophageal reflux disease without esophagitis, Z68.38 - Body mass index [BMI] 38.0-38.9, adult IRON PROFILE Today E66.9 - Obesity, unspecified, E78.5 - Hyperlipidemia, unspecified, E79.0 - Hyperuricemia without signs of inflammatory arthritis and tophaceous disease, I10 - Essential (primary) hypertension, J45.909 - Unspecified asthma, uncomplicated, K21.9 - Gastro-esophageal reflux disease without esophagitis, Z68.38 - Body mass index [BMI] 38.0-38.9, adult Comprehensive Met. Panel Today E66.9 - Obesity, unspecified, E78.5 - Hyperlipidemia, unspecified, E79.0 - Hyperuricemia without signs of inflammatory arthritis and tophaceous disease, I10 - Essential (primary) hypertension, J45.909 - Unspecified asthma, uncomplicated, K21.9 - Gastro-esophageal reflux disease without esophagitis, Z68.38 - Body mass index [BMI] 38.0-38.9, adult Vitamin B12 and Folate Today E66.9 - Obesity, unspecified, E78.5 - Hyperlipidemia, unspecified, E79.0 - Hyperuricemia without signs of inflammatory arthritis and tophaceous disease, I10 - Essential (primary) hypertension, J45.909 - Unspecified asthma, uncomplicated, K21.9 - Gastro-esophageal reflux disease without esophagitis, Z68.38 - Body mass index [BMI] 38.0-38.9, adult C Reactive Protein Today E66.9 - Obesity, unspecified, E78.5 - Hyperlipidemia, unspecified, E79.0 - Hyperuricemia without signs of inflammatory arthritis and tophaceous disease, I10 - Essential (primary) hypertension, J45.909 - Unspecified asthma, uncomplicated, K21.9 - Gastro-esophageal reflux disease without esophagitis, Z68.38 - Body mass index [BMI] 38.0-38.9, adult Vitamin B1 Today E66.9 - Obesity, unspecified, E78.5 - Hyperlipidemia, unspecified, E79.0 - Hyperuricemia without signs of inflammatory arthritis and tophaceous disease, I10 - Essential (primary) hypertension, J45.909 - Unspecified asthma, uncomplicated, K21.9 - Gastro-esophageal reflux disease without esophagitis, Z68.38 - Body mass index [BMI] 38.0-38.9, adult Ferritin Today E66.9 - Obesity, unspecified, E78.5 - Hyperlipidemia, unspecified, E79.0 - Hyperuricemia without signs of inflammatory arthritis and tophaceous disease, I10 - Essential (primary) hypertension, J45.909 - Unspecified asthma, uncomplicated, K21.9 - Gastro-esophageal reflux disease without esophagitis, Z68.38 - Body mass index [BMI] 38.0-38.9, adult XR chest 2V Today E66.9 - Obesity, unspecified, E78.5 - Hyperlipidemia, unspecified, E79.0 - Hyperuricemia without signs of inflammatory arthritis and tophaceous disease, I10 - Essential (primary) hypertension, J45.909 - Unspecified asthma, uncomplicated, K21.9 - Gastro-esophageal reflux disease without esophagitis, Z68.38 - Body mass index [BMI] 38.0-38.9, adult Referrals Behavioral Health Referral E66.9 - Obesity, unspecified, E78.5 - Hyperlipidemia, unspecified, E79.0 - Hyperuricemia without signs of inflammatory arthritis and tophaceous disease, I10 - Essential (primary) hypertension, J45.909 - Unspecified asthma, uncomplicated, K21.9 - Gastro-esophageal reflux disease without esophagitis, Z68.38 - Body mass index [BMI] 38.0-38.9, adult Nutrition/Dietitian Referral E66.9 - Obesity, unspecified, E78.5 - Hyperlipidemia, unspecified, E79.0 - Hyperuricemia without signs of inflammatory arthritis and tophaceous disease, I10 - Essential (primary) hypertension, J45.909 - Unspecified asthma, uncomplicated, K21.9 - Gastro-esophageal reflux disease without esophagitis, Z68.38 - Body mass index [BMI] 38.0-38.9, adult Medications: New nicotine 1 patch transdermal DAILY 28 ea 2RF F17.200 - Nicotine dependence, unspecified, uncomplicated Telehealth Telehealth Location of provider rendering services: practice address Location of patient: address on file Patient Identification confirmed using: Name, : Yes Telehealth method: voice only Patient verbally consented to treatment: Yes Patient verbally consented to billing insurance company: Yes Patient informed of any privacy concerns related to visit: Yes Minutes spent on Phone/Video with Pt.: 52 Coding Level of Care Code Tele [facility] Pt Level 4 (60524) Diagnoses Class 3 severe obesity due to excess calories with serious comorbidity and body mass index (BMI) of 40.0 to 44.9 in adult E66.01; Z68.41 Obesity type: due to excess calories Obesity classification: adult class 3 (BMI >= 40) Serious obesity comorbidity presence: with serious comorbidity Body mass index: BMI 40.0-44.9 Time Spent (min) 52
[2023-11-17 11:11] VITALS: BMI 38.0
== END 2023-11-17 11:43 | disposition home or self-care (01) ==
LOC: HO.HBS 08:06
PROVIDERS: PCP Physician Assistant; Visit Provider Surgery
DX: E66.01 Morbid (severe) obesity due to excess calories (principal); Z68.41 Body mass index [BMI] 40.0-44.9, adult
CPT/HCPCS: 99443

== ENCOUNTER → 2023-11-17 08:05 | Outpatient (BNVA) | payer MEDICARE, MEDICAID, SELFPAY | PROVIDERS: PCP Physician Assistant; Visit Provider Surgery ==

== ENCOUNTER 2023-11-18 09:57 | Outpatient (REF) | payer MEDICARE, MEDICAID, SELFPAY ==
--- NOTE | ~2023-11-18 | MR_ITS ---
EXAMINATION: MR BRAIN WITHOUT CONTRAST CLINICAL INFORMATION: family history of MS. Intermittent neuropathic/paresthesias in extremities. Dizziness COMPARISON: None TECHNIQUE: Multiplanar multisequence MR imaging of the brain was obtained without intravenous contrast. FINDINGS: There is no acute infarct on diffusion-weighted imaging. There is no intracranial hemorrhage on iron-sensitive imaging. No extra-axial collection or mass effect/herniation. Patchy periventricular and deep white matter T2 FLAIR hyperintensities consistent with moderate underlying microangiopathy. No hydrocephalus. The ventricles are normal in morphology and size. The major flow voids at the skull base are preserved. Partially empty sella. The cerebellar tonsils are normally positioned. The craniocervical junction is normal. Marrow signal is within normal limits. The visualized soft tissues are without significant abnormality. No signal abnormality within the paranasal sinuses or within the mastoid air cells. MR/MR head/brain wo con IMPRESSION: Patchy T2/FLAIR hyperintense signal in the supratentorial white matter in a pattern and distribution which is most suggestive of sequela of moderate chronic microvascular ischemia. No specific imaging findings to suggest demyelinating disease, although this is not entirely excluded on the basis of this examination
[2023-11-18 10:17] LABS: MANUAL DIFF FLAG NO
[2023-11-18 10:36] LABS: Basophils Percent Auto 0.6 % (0-2); Eosinophils Absolute Auto 0.1 X10*3/uL (0.0-0.4); Eosinophils Percent Auto 1.8 % (0-4); Hematocrit 39.8 % (37.0-47.0); Hemoglobin 13.4 g/dl (12.0-16.0); Imm Gran Abs Auto 0.02 X10*3/uL (0.00-0.03); Imm Gran Pct Auto 0.3 % (0.0-0.4); Lymphocytes Absolute Auto 3.1 X10*3/uL (1.2-4.9); Lymphocytes Percent Auto 47.5 % (20-40); Mean Corpuscular HGB Conc 33.7 g/dl (31.0-35.0); Mean Corpuscular Hemoglobin 31.3 pg (27.0-33.0); Mean Platelet Volume 9.3 fL (9.4-12.3); Monocytes Absolute Auto 0.4 X10*3/uL (0.1-1.2); Monocytes Percent Auto 6.2 % (2-11); Neutrophils Absolute Auto 2.9 x10*3/uL (2.0-8.3); Neutrophils Percent Auto 43.6 % (45-73); Platelet Count 239 X10*3/uL (160-400); Red Blood Count 4.28 X10*6/uL (4.20-5.50); Red Cell Distribution Width 12.8 % (11.0-16.0); White Blood Count 6.6 X10*3/uL (4.8-10.8)
[2023-11-18 11:01] LABS: Estimated Average Glucose 117 mg/dL; Hemoglobin A1c % 5.7 % (<6.0)
[2023-11-18 11:14] LABS: Alanine Aminotransferase 24 U/L (0-31); Albumin Level 3.9 g/dL (3.5-5.0); Alkaline Phosphatase 77 U/L (39-117); Anion Gap 13 (12-20); Aspartate Amino Transferase 20 U/L (5-31); Bilirubin Total 0.3 mg/dL (0.0-1.0); Blood Urea Nitrogen 18 mg/dL (9-16); C Reactive Protein 0.35 mg/dL (< or = 0.50); Calcium 10.9 mg/dL (8.4-10.2); Carbon Dioxide 29 mmol/L (22-29); Chloride 105 mmol/L (96-108); Cholesterol 232 mg/dL (<200); Estimated Glomerular Filt Rate > 60; Glucose Random 116 mg/dL (60-115); HDL Cholesterol 50 mg/dL (>40); Iron 99 mcg/dL (30-160); LDL Cholesterol Calculated 121 mg/dL (<100); Percent Iron Saturation 32 % (15-50); Potassium 4.1 mmol/L (3.3-5.1); Sodium 143 mmol/L (135-145); Total Iron Binding Capacity 310 mcg/dL (228-428); Total Protein 7.1 g/dL (6.5-8.0); Triglycerides 305 mg/dL (<150); Unsaturated Iron Binding 211 ug/dL
[2023-11-18 11:29] LABS: Ferritin 199 ng/mL (10-250); Insulin 16 uU/mL (2-29); TSH reflex Free T4 1.72 uIU/mL (0.32-4.0); Vitamin D 25-OH Total 35.3 ng/mL (>30)
[2023-11-18 12:00] LABS: Folate 19.6 ng/mL (> or = 4.0); Vitamin B12 > 2000 pg/mL (200-900)
[2023-11-20 12:33] LABS: Zinc 89 mcg/dL (60-130)
[2023-11-22 01:53] LABS: Vitamin A 73 mcg/dL (38-98)
[2023-11-23 14:54] LABS: Vitamin B1 34 nmol/L (8-30)
== END 2023-11-18 09:58 | disposition home or self-care (01) ==
LOC: HO.MRI 09:57
PROVIDERS: PCP Physician Assistant; Referring Provider Surgery; Visit Provider Physician Assistant
DX: G57.91 Unspecified mononeuropathy of right lower limb (principal); R42 Dizziness and giddiness; E66.9 Obesity, unspecified; Z68.38 Body mass index [BMI] 38.0-38.9, adult; J45.909 Unspecified asthma, uncomplicated; E79.0 Hyperuricemia without signs of inflammatory arthritis and tophaceous disease; K21.9 Gastro-esophageal reflux disease without esophagitis; I10 Essential (primary) hypertension; E78.5 Hyperlipidemia, unspecified; Z82.0 Family history of epilepsy and other diseases of the nervous system
CPT/HCPCS: 36415; 70551; 80053; 80061; 82306; 82607; 82728; 82746; 83036; 83525; 83540; 84425; 84443; 84590; 84630; 85025; 86140

== ENCOUNTER → 2023-11-26 12:56 | Outpatient (BNVA) | payer MEDICARE, MEDICAID, SELFPAY | PROVIDERS: PCP Physician Assistant; Visit Provider Physician Assistant Surgical ==

== ENCOUNTER → 2023-12-01 13:00 | Outpatient (BNVA) | payer MEDICARE, MEDICAID, SELFPAY | PROVIDERS: PCP Physician Assistant; Visit Provider Physician Assistant ==

== ENCOUNTER → 2023-12-09 11:34 | Outpatient (REF) | payer MEDICARE, MEDICAID, SELFPAY ==
--- NOTE | 2023-12-09 11:40 | ECG_ITS ---
Test Reason : CHEST PAIN Blood Pressure : / mmHG Vent. Rate : 071 BPM Atrial Rate : 071 BPM P-R Int : 152 ms QRS Dur : 080 ms QT Int : 396 ms P-R-T Axes : 072 001 037 degrees QTc Int : 430 ms Normal sinus rhythm Normal ECG When compared with ECG of 04-SEP-2012 10:03, Questionable change in QRS axis Referred By: Festus Lang Electronically Signed By:REY SMITH
== END ==
LOC: HO.CARD 11:34
PROVIDERS: PCP Physician Assistant; Visit Provider Physician Assistant
DX: R07.9 Chest pain, unspecified (principal)
CPT/HCPCS: 93005

== ENCOUNTER → 2023-12-09 11:40 | Outpatient (BNV) | payer MEDICARE, MEDICAID, SELFPAY | PROVIDERS: PCP Physician Assistant; Visit Provider Internal Medicine | DX: R07.9 Chest pain, unspecified (principal) | CPT/HCPCS: 93010 ==

== ENCOUNTER → 2023-12-10 10:56 | Outpatient (BNVA) | payer MEDICARE, MEDICAID, SELFPAY | PROVIDERS: PCP Physician Assistant; Visit Provider Physician Assistant ==

== ENCOUNTER 2023-12-11 08:10 | Outpatient (AMB) | payer MEDICARE, MEDICAID, SELFPAY ==
[2023-12-11 10:01] VITALS: BMI 38.0
--- NOTE | 2023-12-11 10:01 | A.OFFVIS_ITS ---
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 - Allergies morphine [Morphine] Allergy (Intermediate, Verified 11/17/23 10:56) VOMITING oxycodone [Percocet] Allergy (Unknown, Verified 11/17/23 10:56) Vomiting HPI TV Follow Up SWL - HPI Details Start time: 9.40am, End time: 10.04am ?I spent 19 minutes speaking with the patient on the phone plus an additional 5 minutes reviewing and updating records for a total of 24 minutes HPI Comments History of Present Illness Details She has purchased the protein shakes and the bars and begin the plan now [facility] Medical History (Updated 12/07/23 @ 14:16 by Festus Lang PA-C) Hyperuricemia Asthma Obese Osteoarthritis Trigger finger Carpal tunnel syndrome Hyperlipidemia LDL goal <100 Essential hypertension Hyperlipidemia Cellulitis, umbilical Surgical History (Updated 11/17/23 @ 11:05 by Isaac Mendez MD) History of laparoscopic appendectomy History of foot surgery History of carpal tunnel release H/O: hysterectomy Family History Father Diabetes Hypertension Stroke Heart attack, Onset Age: 50 Mother Multiple sclerosis Brother In good health Son In good health Son In good health Other Patient denies medical problems Social History Household Members: Spouse and Other Housing: Apartment Alcohol intake: current Alcohol intake frequency: holidays/special occasions only Patient Tobacco Use Status: Current everyday Tobacco user Tobacco use type: Cigarette Cigarette Packs Per Day: 0.5 Cigarettes Per Day: 6 Years Smoked: 43-started at age 8 e-Cigarette/Vaping Use: Never Used Second Hand Smoke Exposure: No service: No Current occupational status: disabled Cognitive needs: No Hearing needs: No Vision needs: Yes (glasses) Assessment & Plan Assessment & Plan (1) Obese: Code(s): E66.9 - Obesity, unspecified Qualifiers: Obesity type: due to excess calories Obesity classification: adult class 3 (BMI >= 40) Serious obesity comorbidity presence: with serious comorbidity Body mass index: BMI 40.0-44.9 Qualified Code(s): E66.01 - Morbid (severe) obesity due to excess calories; Z68.41 - Body mass index [BMI]40.0- 44.9, adult Plan: 1. Emphasized the importance to communicate directly with me for any issues with the following plan. 2. Nutritional counseling. Start with 2 Isopure protein (buy at [employer], [employer], [employer], [employer]) shakes (HALF scoop EACH in 8oz water) at 10am-12pm and 1pm-3pm, 1 protein bar (Zone Perfect protein bars, buy at [employer], ?[employer], [employer], or [employer]) at 4pm-6pm, dinner at 7pm (8 forks of protein and 8 forks of salad/vegetables), one more protein bar after dinner at 9pm-11pm. If you feel hungry, you can have another HALF protein bar at 11.30pm-12.30am. So you do 2 protein shakes, 2.5 protein bars and one meal per day. Meal to include lean meat (beef, fish, pork, turkey, chicken), or lux[place]bourgish yogurt, or egg whites, or beans with a salad with olive oil and fruits (berries, pears, apples, kiwi). Avoid salt, breads, potatoes, rice, pasta, desserts. 3. Each shake would be drunk slowly, like coffee in a period of 2 hours. 4. Cut each bar in 4 pieces and eat each piece in 30min ?to make each bar last 2 hours. 5. I emphasized the importance of measuring accurately the food portion and measure it when serving the food in plate 6. The meal portions include 8 full-size forks of meat and 8 full-size forks of salad. You always eat the meat portion but you can replace up to 4 forks for salad/vegetables with rice, potatoes or pasta, or a fruit ?if you like. The less you do it the better weight loss will be. 7. One full-size fork is what it can be scooped on the fork without falling aside and not what can be bit with the fork. Use regular forks like those you find in a typical restaurant. 8.? Please send me weight measurements weekly on . Always include your diet and exercise plan. 9. Start walking outside daily, tracking calories with a goal of 300 calories per day, daily. Goal is to burn 2000 calories per week on exercise, which means either 300 calories daily, or 400 calories 5 days per week, or 500 calories 4 days per week, or 650 calories 3 days per week. 10. The best choice would be to purchase a stationary bike, elliptical or treadmill at home that can track calories. Let me know if you do so I can give you an exercise plan. 11.?Goal is to lose at least 1.5-2lbs per week 12. Goal to lose 10% of your weight before surgery, which is about 21lbs. Ultimate weight goal: 193lbs before surgery 13. Please follow the diet plan exactly without any change. If you don't like something about the plan or you feel hungry you need to communicate with me so I can help you revise the plan. You should not change the plan yourself. Telehealth Telehealth Location of provider rendering services: practice address Location of patient: address on file Patient Identification confirmed using: Name, : Yes Telehealth method: voice only Patient verbally consented to treatment: Yes Patient verbally consented to billing insurance company: Yes Patient informed of any privacy concerns related to visit: Yes Minutes spent on Phone/Video with Pt.: 24 Coding Level of Care Code Tele Est Pt Level 3 (61037) Diagnoses Class 3 severe obesity due to excess calories with serious comorbidity and body mass index (BMI) of 40.0 to 44.9 in adult E66.01; Z68.41 Obesity type: due to excess calories Obesity classification: adult class 3 (BMI >= 40) Serious obesity comorbidity presence: with serious comorbidity Body mass index: BMI 40.0-44.9 Time Spent (min) 24
== END 2023-12-11 10:05 | disposition home or self-care (01) ==
LOC: HO.HBS 08:11
PROVIDERS: PCP Physician Assistant; Visit Provider Surgery
DX: E66.01 Morbid (severe) obesity due to excess calories (principal); Z68.41 Body mass index [BMI] 40.0-44.9, adult
CPT/HCPCS: 99443

== ENCOUNTER → 2023-12-11 08:10 | Outpatient (BNVA) | payer MEDICARE, MEDICAID, SELFPAY | PROVIDERS: PCP Physician Assistant; Visit Provider Surgery ==

== ENCOUNTER 2023-12-14 11:00 | Outpatient (RCR) | payer MEDICARE, MEDICAID, SELFPAY ==
--- NOTE | 2023-11-05 10:32 | MHC.PT.EP ---
[facility] [place] Office [place] Office [place] Office [address] [place]a Winters [address] [phone] F: [phone] F: [phone] F: [phone] F: [phone] Physical Therapy Plan of Care Date of Evaluation: 11/04/22 Date of Surgery: Diagnosis: bilateral LE neuropathy (MD Dx) Assessment: Patient is a 52 y.o. female who is referred to PT by Festus Lang PA-C, with Dx of bilateral LE neuropathy. Patient impairments include pain, weakness in LEs, poor posture, scoliosis, antalgic gait. Patient current functional limitations are walking, walking outside, reciprocal stair use, prolonged standing (showering, dishes), bend/squat. Prognosis is fair due to unknown cause of neuropathy (beside diabetic peripheral neuropathy), potentially from lumbar spine, further imaging/testing is required. Patient will benefit from skilled PT to address aforementioned impairments and functional limitations to meet established goals. Frequency and Duration: The patient will be seen 1-2x/week for 4 weeks Short Term Goals: 2 weeks Patient demonstrates consistency and independence with HEP to self manage symptoms. Long-Term Goals: 4 weeks Patient presents with increased L LE ankle DF 2 degrees to improve gait and reduce fall risk by tripping. Patient presents with increased bilateral hip glute med strength 4+/5 to be able to ambulate without med/lat sway. Treatment Plan: Modalities to reduce pain, spasms and effusion. Manual therapy to restore motion and function. Therapeutic exercise to improve strength and flexibility. Neuromuscular re-education for posture and balance. Therapeutic activities to return to functional activities of daily living. Electronically signed by: Dang España, PT, DPT Please sign and return to therapist. Thank you for your referral.
--- NOTE | 2023-12-14 12:43 | MHC.PT.DC ---
[facility] [place] Office [place] Office [place] Office [address] Sowmya Winters [address] [phone] F: [phone] F: [phone] F: [phone] F: [phone] Physical Therapy Discharge Report Diagnosis: bilateral LE neuropathy ( Dx) Date of Surgery: Date of Evaluation: 11/04/22 Date of Discharge: 12/14/23 Treatments to Date: 9 Cancellations to Date: 2 No Shows to Date: Discharge Status: Independent with HEP Recommend MD Follow-up Discharge Summary: She c/o numbness/tingling in her L foot after increased standing exercises and with trial of standing hip flexor stretch. This could indicate lumbar component to her symptoms as her L radicular sxs in her foot improve after seated rest. We discuss stopping therapy for now as she is having lumbar MRI this month. I feel this is a good next step for her to determine the source of her symptoms to direct care in the future. She had HEP to work on simple balance exercises and hip strengthening. We discuss using cane on outdoor surfaces for balance. She agrees to plan for discharge today. Electronically signed by: Dang España, PT, DPT Please sign and return to therapist. Thank you for your referral.
== END 2023-12-14 12:43 | disposition home or self-care (01) ==
LOC: HO.PT 11:00
PROVIDERS: PCP Physician Assistant; Visit Provider Physician Assistant
DX: G57.92 Unspecified mononeuropathy of left lower limb (principal)
CPT/HCPCS: 97110; 97112; 97162

== ENCOUNTER → 2023-12-14 11:51 | Outpatient (BNVA) | payer MEDICARE, MEDICAID, SELFPAY | PROVIDERS: PCP Physician Assistant; Visit Provider Physician Assistant ==

== ENCOUNTER 2023-12-15 11:14 | Outpatient (AMB) | payer MEDICARE, MEDICAID, SELFPAY ==
--- NOTE | 2023-12-15 11:02 | MHC.AMNUTRGE ---
Intake Intake Visit Reasons: TV Initial Nutrition SWL Allergies morphine [Morphine] Allergy (Intermediate, Verified 11/17/23 10:56) VOMITING oxycodone [Percocet] Allergy (Unknown, Verified 11/17/23 10:56) Vomiting HPI Nutrition Presentation Reason for consult elevated BMI Diet Assmnt Details is rather guarded discussing eating habits and changes, we weren't able to work through discussions about post op expectations and current challenges Explained the importance of changing eating habits and being committed to this process. SWL online classes: none Previous weight loss methods attempted apple cider vinegar Dietary counseling reduction Who buys your food self Who prepares/cooks your food self Meal frequency regular: lunch (steak) and snacks (8pm) and never: breakfast and dinner Lifestyle Food frequency Fruit: occasionally, Vegetables: occasionally, Grains/pasta/breads/cereal (carbs): daily, Meats/poultry/fish (protein): daily (eats tuna, but no other seafood ), Meat substitutes/nuts/seeds/legumes: daily, Restaurants/fast foods: occasionally, Water: daily, Soda: daily (coke zero), Juice: several times weekly and Coffee: daily Diagnosis Nutrition problem #1 overweight/obesity As related to (etiology) #1 excess energy intake and physical inactivity As evidenced by (sign/symptom) #1 high BMI Monitoring/Goals Nutrition problem monitoring total energy intake, level of knowledge/skill, total PRO intake, total CHO intake and weight Outcome progress not met Learning/Education Readiness to learn poor Stages of change contemplation Most Recent Diabetes Results: No Data to Display [facility] Medical History (Updated 12/07/23 @ 14:16 by Festus Lang PA-C) Hyperuricemia Asthma Obese Osteoarthritis Trigger finger Carpal tunnel syndrome Hyperlipidemia LDL goal <100 Essential hypertension Hyperlipidemia Cellulitis, umbilical Surgical History (Updated 11/17/23 @ 11:05 by Isaac Mendez MD) History of laparoscopic appendectomy History of foot surgery History of carpal tunnel release H/O: hysterectomy Family History Father Diabetes Hypertension Stroke Heart attack, Onset Age: 50 Mother Multiple sclerosis Brother In good health Son In good health Son In good health Other Patient denies medical problems Social History Household Members: Spouse and Other Housing: Apartment Alcohol intake: current Alcohol intake frequency: holidays/special occasions only Patient Tobacco Use Status: Current everyday Tobacco user Tobacco use type: Cigarette Cigarette Packs Per Day: 0.5 Cigarettes Per Day: 6 Years Smoked: 43-started at age 8 e-Cigarette/Vaping Use: Never Used Second Hand Smoke Exposure: No service: No Current occupational status: disabled Cognitive needs: No Hearing needs: No Vision needs: Yes (glasses) Assessment & Plan Assessment & Plan (1) Obesity (BMI 30-39.9): Code(s): E66.9 - Obesity, unspecified Plan not cleared. will need to be seen again. Telehealth Telehealth Location of provider rendering services: practice address Location of patient: address on file Patient Identification confirmed using: Name, : Yes Telehealth method: voice only Patient verbally consented to treatment: Yes Patient verbally consented to billing insurance company: Yes Patient informed of any privacy concerns related to visit: Yes Minutes spent on Phone/Video with Pt.: 30 Coding Level of Care Code Nutr Indiv Intake (14770) Diagnoses Obesity (BMI 30-39.9) E66.9 Time Spent (min) 30
== END 2023-12-15 11:23 | disposition home or self-care (01) ==
LOC: HO.HBS 11:14
PROVIDERS: PCP Physician Assistant; Visit Provider Dietitian, Registered
DX: E66.9 Obesity, unspecified (principal)

== ENCOUNTER → 2023-12-15 11:14 | Outpatient (BNVA) | payer MEDICARE, MEDICAID, SELFPAY | PROVIDERS: PCP Physician Assistant; Visit Provider Dietitian, Registered | DX: E66.9 Obesity, unspecified (principal) | CPT/HCPCS: 97802 ==

== ENCOUNTER 2023-12-21 09:02 | Outpatient (REF) | payer MEDICARE, MEDICAID, SELFPAY ==
--- NOTE | ~2023-12-21 | US_ITS ---
EXAMINATION: US COMPLETE ABDOMEN WITH LIVER ELASTOGRAPHY CLINICAL INFORMATION: Obesity COMPARISON: None available. TECHNIQUE: Real-time imaging of the abdominal viscera. Noninvasive ultrasound liver fibrosis assessment is performed using Kristel ElastPQ point quantification shear wave elastography (2D-SWE) with a C5-2 MHz transducer. Multiple elastography samples are obtained. FINDINGS: PANCREAS: Normal. The visualized pancreatic head and body are normal in appearance. The remainder of the pancreas is obscured from visualization by the overlying bowel gas. ABDOMINAL AORTA: The proximal, middle, and distal aortic segments are normal in caliber. INFERIOR VENA CAVA: Visualized portions are normal. LIVER: The liver demonstrates normal size, contour and increased echogenicity. No focal lesion or intrahepatic biliary duct dilatation. The right lobe measures 17.4 cm in length. The left lobe measures 12.1 cm in length. Portal flow is hepatopedal Shear wave liver elastography median stiffness is 1.38 m/s (reference: normal median stiffness is 1.3 m/s or less). IQR/median stiffness to assess sampling precision is 0.06 (reference: good quality data set is IQR/median stiffness of 0.15 or less). GALLBLADDER: Normal. The gallbladder is physiologically distended without evidence of stones, sludge, polyps, wall thickening or pericholecystic fluid. COMMON BILE DUCT: Normal in caliber measuring 0.4 cm in diameter. RIGHT KIDNEY: There is anechoic cyst midpole laterally measuring 0.8 x 0.7 x 0.7 cm. No hydronephrosis. No renal calculi or focal parenchymal lesions. The kidney measures 12.2 cm in maximum dimension. LEFT KIDNEY: Normal. No hydronephrosis. No renal calculi or focal parenchymal lesions. The kidney measures 11.2 cm in maximum dimension. SPLEEN: Normal. The spleen measures 7.9 cm in maximum dimension. FREE FLUID: None. US/US abdomen comp w elastography IMPRESSION: 1. Mild hepatic steatosis without focal lesion. Simple small cyst right kidney 2. Liver elastography: Median liver stiffness measures 1.38 m/s. It corresponds to cACLD (ruled out). REFERENCE: Society of Radiologists in Ultrasound Liver Stiffness Thresholds (2020): LIVER STIFFNESS THRESHOLDS: *Liver Stiffness equal or less than 1.3 m/s: High probability of being normal. *Liver Stiffness less than 1.7 m/s: In the absence of other known clinical signs, rules out compensated advanced chronic liver disease. *Liver Stiffness 1.7-2.1 m/s: Suggestive of compensated advanced chronic liver disease but need further test for confirmation. *Liver Stiffness over 2.1 m/s: Rules in compensated advanced chronic liver disease. *Liver Stiffness over 2.4 m/s: Suggestive of clinically significant portal hypertension. QUALITY OF DATA SET: *IQR/Median value equal or less than 0.15 implies a quality data set. *IQR/Median value over 0.15 implies a poor quality data set. SIGNIFICANT CHANGE FROM PRIOR EXAM: Significant change if liver stiffness measurement is 10% or greater from prior exam. OTHER CONSIDERATIONS: The stage of liver fibrosis may be overestimated in the setting of acute hepatitis, liver inflammation, elevated liver function tests, hepatic vascular congestion, obstructive cholestasis, non-fasting state, and infiltrative diseases such as amyloidosis and lymphoma. In some patients with NAFLD, the liver stiffness thresholds for compensated advanced chronic liver disease may be lower. In causes other than viral hepatitis and NAFLD, liver stiffness thresholds are not well established.
--- NOTE | ~2023-12-21 | XR_ITS ---
EXAMINATION: XR CHEST CLINICAL INFORMATION: Obesity unspecified. COMPARISON: None available. Chest 07/31/2022. TECHNIQUE: 2 views of the chest were obtained. FINDINGS: There is no gross pneumothorax. Heart size is normal. No pleural effusion. No focal consolidation to suggest pneumonia. Degenerative changes in the thoracic spine. Mild loss of height of adjacent mid thoracic vertebral bodies redemonstrated. XR/XR chest 2V IMPRESSION: No evidence of pneumonia.
== END 2023-12-21 09:03 | disposition home or self-care (01) ==
LOC: HO.US 09:02
PROVIDERS: PCP Physician Assistant; Visit Provider Surgery
DX: E66.9 Obesity, unspecified (principal); Z68.38 Body mass index [BMI] 38.0-38.9, adult; J45.909 Unspecified asthma, uncomplicated; I10 Essential (primary) hypertension
CPT/HCPCS: 71046; 76700; 76981

== ENCOUNTER 2023-12-22 10:14 | Outpatient (AMB) | payer MEDICARE, MEDICAID, SELFPAY ==
--- NOTE | 2023-12-22 09:32 | MHC.WMTHER ---
Intake Intake Visit Reasons: TV BH Intake Allergies morphine [Morphine] Allergy (Intermediate, Verified 11/17/23 10:56) VOMITING oxycodone [Percocet] Allergy (Unknown, Verified 11/17/23 10:56) Vomiting [facility] Medical History (Updated 12/07/23 @ 14:16 by Festus Lang PA-C) Hyperuricemia Asthma Obese Osteoarthritis Trigger finger Carpal tunnel syndrome Hyperlipidemia LDL goal <100 Essential hypertension Hyperlipidemia Cellulitis, umbilical Surgical History (Updated 11/17/23 @ 11:05 by Isaac Mendez MD) History of laparoscopic appendectomy History of foot surgery History of carpal tunnel release H/O: hysterectomy Family History Father Diabetes Hypertension Stroke Heart attack, Onset Age: 50 Mother Multiple sclerosis Brother In good health Son In good health Son In good health Other Patient denies medical problems Social History Household Members: Spouse and Other Housing: Apartment Alcohol intake: current Alcohol intake frequency: holidays/special occasions only Patient Tobacco Use Status: Current everyday Tobacco user Tobacco use type: Cigarette Cigarette Packs Per Day: 0.5 Cigarettes Per Day: 6 Years Smoked: 43-started at age 8 e-Cigarette/Vaping Use: Never Used Second Hand Smoke Exposure: No service: No Current occupational status: disabled Cognitive needs: No Hearing needs: No Vision needs: Yes (glasses) Behavioral Health Assessment Weight Management Therapy Therapy Notes Details Patient is looking to have weight loss surgery to help improve her health and quality of life. She reported struggling with the meal plan and is not loosing any weight. No history of mental health treatment and stated that she has never been in therapy or has struggled with depression or anxiety. Pt denied a history of alcohol or drug abuse. She has been smoking cigarettes for about 43 years now. Presenting Concerns Referral Source provider Reason for referral weight loss surgery evaluation Precipitating Event obesity Living Situation Current Living Situation Own At risk of losing current housing? No Satisfied with current living situation? Yes Comments Pt lives with her and her adult step son. She has a grown son who lives on his own as well. Food/Weight/Diet Expectations of change weight loss History/Relationship with food Patient stated she would often skip breakfast and then eat lunch, also would often eat ice cream, steak, pasta, potatoes, pork chops, veggies, beets. Also drinks coffee daily about two cups with splenda and powder creamer. History/Relationship with weight Pt stated that at her heaviest she was around 245lbs and had diabetes. History/Relationship with dieting no real attempts to weight loss other than taking apple cider vinegar. Binge Eating Do you frequently eat large amounts of food in short periods of time, not feeling physically hungry? No Do you feel out of control when you eat a large amount of food in a short period of time? No Do you eat large amounts of food rapidly and typically alone? No Night Eating Do you wake up at least once during the night to eat? No If you wake up in the night, do you find that it is necessary to eat something in order to fall back asleep? No Do you have little or no appetite in the morning and feel very hungry in the evening, often overeating between dinner and when you go to bed? Yes Social History Family history and relationship Pt was born and raised in this area by her parents and siblings. Both parents are . She has been for ten years and has two sons from a previous marriage. 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 none reported Education Highest grade completed 7th grade. Patient has learning disability in reading and math. Preferred learning style Auditory and Verbal Currently enrolled in educational program? No Interested in further educational program? No Educational Interests/Skills Patient has been on disability for about 33 years due to learning disability. Employment Employment Status Other Wants help to find employment? No Financial Situation Describe current financial situation Occasional struggle Financial assistance? None, Food [place] and SSDI Service Service? No Mental Health and Addiction Treatment Current/Past substance abuse? No Current/Past addictive behavior concerns? Yes Medical and Physical Health Summary Physical exam in the last year? Yes Pain Screening Current pain? No Pain in the last few months? Yes Medications Is the patient compliant with medications? Yes Does the patient have Pool Guardian in place? Not applicable Does the patient use complimentary health approaches? No Questionnaires PHQ-9 Over the last 2 weeks, how often have you been bothered by any of the following problems? 1. Little interest or pleasure in doing things: not at all 2. Feeling down, depressed, or hopeless: not at all 3. Trouble falling or staying asleep, or sleeping too much: several days 4. Feeling tired or having little energy: not at all 5. Poor appetite or overeating: not at all 6. Feeling bad about yourself - or that you are a failure or have let yourself or your family down: nearly every day 7. Trouble concentrating on things, such as reading the newspaper or watching television: not at all 8. Moving or speaking so slowly that other people could have noticed. Or the opposite - being so fidgety or restless that you have been moving around a lot more than usual: not at all 9. Thoughts that you would be better off or of hurting yourself in some way: not at all Total score: 4 Source: Developed by Drs. Eduard Sherwood, Arlen Valdes, Rad Yao and colleagues, with an educational enrique from [employer]. Binge Eating Scale Group 1 A. I don't feel self-conscious about my wt. or body size when I'm with others. B. I feel concerned about how I look to others, but it normally does not make me fell disappointed with myself C. I do get self-conscious about my appearance and wt. which makes me feel disappointed in myself. D. I feel very self-conscious about my wt. and frequently I feel intense shame and disgust for myself. I try to avoid social contacts because of my self-consciousness. Response Group 1: A Group 2 A. I don't have any difficulty eating slowly in the proper manner. B. Although I seem to gobble down foods, I don't end up feeling stuffed because of eating to much. C. At times, I tend to eat quickly and then, I feel uncomfortably full afterwards. D. I have the habit of bolting down my food, without really chewing it. When this happens I usually feel uncomfortably stuffed because I've eaten to much. Response Group 2: A Group 3 A. I feel capable to control my eating urges when I want to. B. I feel like I have failed to control my eating more than the average person. C. I feel utterly helpless when it comes to feeling in control of my eating urges. D. Because I feel so helpless about controlling my eating I have become very desperate about trying to get control. Response Group 3: B Group 4 A. I don't have the habit of eating when I'm bored. B. I sometimes eat when I'm bored, but often I'm able to get busy and get my mind off food. C. I have a regular habit of eating when I'm bored, but occasionally, I can use some other activity to get my mind off eating. D. I have a strong habit of eating when I'm bored. Nothing seems to help me breath the habit. Response Group 4: A Group 5 A. I'm usually physically hungry when I eat something. B. Occasionally, I eat something on impulse even though I really am not hungry. C. I have the regular habit of eating foods, that I might not really enjoy, to satisfy a hungry feeling even though physically, I don't need the food. D. Although I'm not physically hungry, I get a hungry feeling in my mouth that only seems to be satisfied when I eat a food, like sandwich, that fills my mouth. Sometimes, when I eat the food to satisfy my mouth hunger, I then spit the food out so I won't gain weight. Response Group 5: A Group 6 A. I don't feel any guilt or self-hate after I overeat. B. After I overeat, occasionally I feel guilt or self-hate. C. Almost all the time I experience strong guilt or self-hate after I overeat. Response Group 6: C Group 7 A. I don't lose total control of my eating when dieting even after periods when I overeat. B. Sometimes when I eat a forbidden food on a diet, I feel like I blew it and eat even more. C. Frequently, I have the habit of saying to myself, I've blown it now, why not go all the way, when I overeat on a diet. When that happens I eat more. D. I have a regular habit of starting a strict diets for myself but I break the diets by going on an eating binge. My life seems to be either a feast or famine. Response Group 7: A Group 8 A. I rarely eat so much food that I feel uncomfortably stuffed afterwards. B. Usually about once a month, I each such a quantity of food, I end up feeling very stuffed. C. I have regular periods during the month when I eat large amounts of food, either at mealtime or at snacks. D. I eat so much food that I regularly feel quite uncomfortable after eating and sometimes a bit nauseous. Response Group 8: B Group 9 A. My level of calorie intake does not go up very high or go down very low on a regular basis. B. Sometimes after I overeat, I will try to reduce my caloric intake to almost nothing to compensate for the excess calories I've eaten. C. I have a regular habit of overeating during the night. It seems that my routine is not to be hungry in the morning but overeat in the evening. D. In my adult years, I have had week-long periods where I practically starve myself. This follows periods when I overeat. It seems I live a life of either feast or famine. Response Group 9: B Group 10 A. I usually am able to stop eating when I want to. I know when enough is enough. B. Every so often, I experience a compulsion to eat which I can't seem to control. C. Frequently, I experience strong urges to eat which I seem unable to control, but at other times I can control my eating urges. D. I feel incapable of controlling urges to eat. I have a fear of not being able to stop eating voluntarily. Response Group 10: A Group 11 A. I don't have any problem stopping eating when I feel full. B. I usually can stop eating when I feel full but occasionally overeat leaving me feeling uncomfortably stuffed. C. I have a problem stopping eating once I start and usually I feel uncomfortably stuffed after I eat a meal. D. Because I have a problem not being able to stop eating when I want, I sometimes have to induce vomiting to relieve my stuffed feeling. Response Group 11: B Group 12 A. I seem to eat just as much when I'm with others, Family social gatherings as when I'm by myself. B. Sometimes, when I'm with other persons, I don't eat as much as I want to eat because I'm self-conscious about my eating. C. Frequently, I eat only a small amount of food when others are present, because I'm very embarrassed about my eating. D. I feel so ashamed about overeating that I pick times to overeat when I know no one will see me. I feel like a closet eater. Response Group 12: C Group 13 A. I eat three meals a day with only an occasional between meal snack. B. I eat 3 meals a day, but I also normally snack between meals. C. When I am snacking heavily, I get in the habit of skipping regular meals. D. There are regular periods when I seem to be continually eating, with no planned meals. Response Group 13: A Group 14 A. I don't think much about trying to control unwanted eating urges. B. At least some of the time, I feel my thoughts are pre-occupied with trying to control my eating urges. C. I feel that frequently I spend much time thinking about how much I ate or about trying not to eat anymore. D. It seems to me that most of my waking hours are pre-occupied by thoughts about eating or not eating. I feel like I'm constantly struggling not to eat. Response Group 14: A Group 15 A. I don't think about food a great deal. B. I have strong craving for food but they last only for brief periods of time. C. I have days when I can't seem to think about anything else but food. D. Most of my days seem to be pre-occupied with thoughts about food. I feel like I live to eat. Response Group 15: B Group 16 A. I usually know whether or not I'm physically hungry. I take the right portion of food to satisfy me. B. Occasionally, I feel uncertain about knowing whether or not I'm physically hungry. A these times it's hard to know how much food I should take to satisfy me. C. Even though I might know how many calories I should eat, I don't have any idea what is a normal amount of food for me. Response Group 16: B Binge Eating Score: 10 Score less than 17 Minimal Risk Score between 18-26 Moderate Risk Score between 27-46 High Risk Assessment & Plan Assessment & Plan (1) Learning disability: Code(s): F81.9 - Developmental disorder of scholastic skills, unspecified (2) BMI 38.0-38.9,adult: Code(s): Z68.38 - Body mass index [BMI] 38.0-38.9, adult (3) Tobacco dependence: Code(s): F17.200 - Nicotine dependence, unspecified, uncomplicated Plan Patient is a 53 year old female who presents for evaluation looking to have weight loss surgery. She has no previous attempts to weight loss on her own. Smoker for over 40 years and learning disabled. Has limited insight and mindset is limited to what she is willing to do to be successful. She will be seen again in one month. Telehealth Telehealth Location of provider rendering services: other Location of patient: address on file Patient Identification confirmed using: Name, : Yes Telehealth method: voice only Patient verbally consented to treatment: Yes Patient verbally consented to billing insurance company: Yes Patient informed of any privacy concerns related to visit: Yes Minutes spent on Phone/Video with Pt.: 45 Coding Level of Care Code Tele Psy Diag Eval (64403) Diagnoses Learning disability F81.9 BMI 38.0-38.9,adult Z68.38 Tobacco dependence F17.200 Time Spent (min) 45
== END 2023-12-22 10:44 | disposition home or self-care (01) ==
LOC: HO.HBST 10:15
PROVIDERS: PCP Physician Assistant; Visit Provider Counselor Mental Health
DX: F81.9 Developmental disorder of scholastic skills, unspecified (principal); Z68.38 Body mass index [BMI] 38.0-38.9, adult; F17.200 Nicotine dependence, unspecified, uncomplicated
CPT/HCPCS: 90791

== ENCOUNTER → 2023-12-22 10:14 | Outpatient (BNVA) | payer MEDICARE, MEDICAID, SELFPAY | PROVIDERS: PCP Physician Assistant; Visit Provider Counselor Mental Health | DX: F81.9 Developmental disorder of scholastic skills, unspecified (principal); Z68.38 Body mass index [BMI] 38.0-38.9, adult; F17.200 Nicotine dependence, unspecified, uncomplicated ==

== ENCOUNTER → 2023-12-24 10:57 | Outpatient (BNVA) | payer MEDICARE, MEDICAID, SELFPAY | PROVIDERS: PCP Physician Assistant; Visit Provider Physician Assistant ==

== ENCOUNTER 2024-01-01 09:05 | Outpatient (REF) | payer MEDICARE, MEDICAID, SELFPAY ==
--- NOTE | ~2024-01-01 | MR_ITS ---
EXAMINATION: MR LUMBAR SPINE WITHOUT CONTRAST CLINICAL INFORMATION: 53-year-old with low back pain. COMPARISON: 11/04/2023 x-rays. TECHNIQUE: MRI of the lumbar spine was obtained using routine sequences without contrast. FINDINGS: CORONAL ALIGNMENT: There is mid lumbar dextroscoliosis, convex to the right at L3, similar to prior x-rays. SAGITTAL ALIGNMENT: Mild degrees of retrolisthesis are noted at L1-L2, L2-L3 and L3-L4, similar to previous x-rays. Trace anterolisthesis at L4-L5 is unchanged. Lordotic curvature is centered at L3-L4. LUMBOSACRAL JUNCTION: Normal. Hypoplastic ribs at T12. VERTEBRAL BODIES: Mild chronic loss of height of the L4, L3, L2 and L1 vertebral bodies with mild chronic anterior wedging of T11 and T12. No acute or nonhealed fractures. DISC SPACES AND ENDPLATES: Advanced multilevel degenerative changes, with the severe disc space height loss at L3-L4, tyyl-zr-iracrxsb degrees of disc space height loss at L4-L5 and L5-S1 and moderate disc space height loss at L1-L2 and L2-L3. There is Schmorl's nodes at the levels between T12-L1 and L3-L4 inclusive with multilevel disc desiccation and spondylosis. SPINAL CANAL: Short pedicles are suspected with developmental lumbar spinal canal stenosis. BONE MARROW: Mixed type I and type II degenerative marrow signal changes noted along the endplates at L3-L4. No focally suspicious marrow replacing process or bone marrow edema. CONUS MEDULLARIS: Terminates at L2. Morphology and signal is normal. INTRADURAL NERVE ROOTS: Multilevel crowding of the intradural nerve roots consistent with multilevel spinal canal stenosis. L5-S1: Mild disc bulging, severe right-sided and zuhqafyw-zp-ynfafw left-sided facet joint arthrosis with ligamentum flavum thickening and a right-sided facet joint effusion. Moderate central spinal canal stenosis is noted with mild left and moderate right subarticular recess stenosis with encroachment on the right S1 nerve root. Moderate left-sided and severe right-sided neural foraminal stenosis, with L5 nerve root impingement, right more than left. L4-L5: Diffuse disc bulging and broad-based right posterolateral disc protrusion with flattening of the dural sac with severe right and ihuteeyo-ot-upgccu left-sided facet joint arthrosis with ligament of flavum thickening and severe central spinal canal stenosis. There is severe bilateral subarticular recess stenosis likely impinging on the traversing L5 nerve roots bilaterally. There is klli-nw-cgmgrpfm left and mrebbrkj-ls-ruqcby right-sided neural foraminal stenosis. Disc herniation abuts the extra foraminal right L4 nerve root. L3-L4: There is concentric disc bulging asymmetric to the right and left posterolateral disc osteophyte complex, with moderate bilateral facet joint arthrosis and ligamentum flavum thickening. There is severe central spinal canal stenosis with marked crowding of the intradural nerve roots with severe bilateral lateral recess stenosis likely impinging on the traversing L4 nerve roots. There is dfydisgi-qp-aqwwkc left-sided and moderate right-sided neural foraminal stenosis, with left L3 nerve root impingement. Disc bulging also abuts the extra foraminal right L3 nerve root. L2-L3: Diffuse disc bulging is noted with a left-sided foraminal/extraforaminal extruded disc herniation with mild cephalad migration. Marked flattening of the ventral dural sac is noted with ligamentum flavum thickening and moderate bilateral facet of atrophic changes. There is wxzbvfzr-qt-xcqofq central spinal canal stenosis with marked crowding of the intradural nerve roots and there is marked crowding of the subarticular zones bilaterally likely encroaching on the traversing L3 nerve roots bilaterally. There is moderate left and mild right-sided foraminal stenosis. Left lateral disc herniation abuts the extra foraminal left L2 nerve root and disc bulging abuts the extra foraminal right L2 nerve root. L1-L2: Concentric disc bulging is noted with flattening of the ventral dural sac with mild facet joint arthrosis and mild central canal stenosis. Mild narrowing of the left subarticular recess is noted with mild left-sided neural foraminal stenosis. T12-L1: Central to left paramedian extruded disc herniation noted with mild cephalad and caudal migration with left-sided indentation of the ventral thecal sac and mild narrowing of the left subarticular zone with mild central canal narrowing without significant neural foraminal stenosis. Small right paramedian extruded disc herniation with mild cephalad migration noted at T10-T11 without cord impingement. PARAVERTEBRAL AND INCLUDED EXTRASPINAL SOFT TISSUES: There is posterior paraspinal and psoas muscle sarcopenia. Otherwise unremarkable. MR/MR lumbar spine wo con IMPRESSION: 1. Mid lumbar dextroscoliosis, convex to the right at L3 with multilevel subluxations as described above. 2. Severe multilevel DDD and spondylosis with multilevel disc bulging, disc herniations and disc osteophyte complexes as described above superimposed on developmental lumbar spinal canal stenosis. 3. Multilevel bilateral facet joint arthrosis and ligamentum flavum thickening as detailed by level above. 4. Severe spinal canal stenosis at L4-L5 and L3-L4, obtfggqx-yg-cgcfuo spinal canal stenosis at L2-L3 with mild spinal canal stenosis at L1-L2 and T12-L1. 5. Significant multilevel bilateral neural foraminal stenosis, with multilevel exiting nerve root impingement as detailed by level above. 6. Mild chronic anterior wedging of the T11, T12 and L1 vertebral bodies with no evidence for acute or nonhealed fractures.
== END 2024-01-01 09:06 | disposition home or self-care (01) ==
LOC: HO.MRI 09:05
PROVIDERS: PCP Physician Assistant; Visit Provider Physician Assistant
DX: M54.50 Low back pain, unspecified (principal)
CPT/HCPCS: 72148

== ENCOUNTER 2024-01-04 08:17 | Outpatient (AMB) | payer MEDICARE, MEDICAID, SELFPAY ==
[2024-01-04 11:15] VITALS: BMI 38.3
--- NOTE | 2024-01-04 11:15 | MHC.OFFVISWM ---
Intake VS Expanded 01/04/24 11:15 Height 5 ft 3 in Weight 216 lb BMI 38.3 Body Fat % 42.8 Body Fat Mass 92.4 Fat Free Mass 123.4 Visceral Fat Rating 12 Body Water % 40.7 Body Water Mass 87.8 Basal Metabolic Rate/Score 1,712 Intake Visit Reasons: TV Follow Up SWL Allergies morphine [Morphine] Allergy (Intermediate, Verified 11/17/23 10:56) VOMITING oxycodone [Percocet] Allergy (Unknown, Verified 11/17/23 10:56) Vomiting HPI TV Follow Up SWL HPI Details Start time: 11am, End time: 11.21am ?I spent 16 minutes speaking with the patient on the phone plus an additional 5 minutes reviewing and updating records for a total of 21 minutes HPI Comments History of Present Illness Details Is doing 2 Isopure Infusions shake (1/2 scoop each in 8oz water), 2 Zone Perfect protein bars and one meal (8 forks of meat and 8 forks of salad or vegetables) Exercise: walking outside for 245 calories x3/week [facility] Medical History (Updated 12/07/23 @ 14:16 by Festus Lang PA-C) Hyperuricemia Asthma Obese Osteoarthritis Trigger finger Carpal tunnel syndrome Hyperlipidemia LDL goal <100 Essential hypertension Hyperlipidemia Cellulitis, umbilical Surgical History (Updated 11/17/23 @ 11:05 by Isaac Mendez MD) History of laparoscopic appendectomy History of foot surgery History of carpal tunnel release H/O: hysterectomy Family History Father Diabetes Hypertension Stroke Heart attack, Onset Age: 50 Mother Multiple sclerosis Brother In good health Son In good health Son In good health Other Patient denies medical problems Social History Household Members: Spouse and Other Housing: Apartment Alcohol intake: current Alcohol intake frequency: holidays/special occasions only Patient Tobacco Use Status: Current everyday Tobacco user Tobacco use type: Cigarette Cigarette Packs Per Day: 0.5 Cigarettes Per Day: 6 Years Smoked: 43-started at age 8 e-Cigarette/Vaping Use: Never Used Second Hand Smoke Exposure: No service: No Current occupational status: disabled Cognitive needs: No Hearing needs: No Vision needs: Yes (glasses) Assessment & Plan Assessment & Plan (1) Obese: Code(s): E66.9 - Obesity, unspecified Qualifiers: Obesity type: due to excess calories Obesity classification: adult class 3 (BMI >= 40) Serious obesity comorbidity presence: with serious comorbidity Body mass index: BMI 40.0-44.9 Qualified Code(s): E66.01 - Morbid (severe) obesity due to excess calories; Z68.41 - Body mass index [BMI]40.0-44.9, adult Plan: 1. Continue same nutritional plan of 2 Isopure Infusions shake (1/2 scoop each in 8oz water), 2 Zone Perfect protein bars and one meal (8 forks of meat and 8 forks of salad or vegetables) 2. Exercise: continue walking outside for 245 calories x3/week or more frequently if possible 3. Consider purchasing a used a stationary bike at home 4. Continue to send me weight measurements weekly on Fridays Telehealth Telehealth Location of provider rendering services: practice address Location of patient: address on file Patient Identification confirmed using: Name, : Yes Telehealth method: voice only Patient verbally consented to treatment: Yes Patient verbally consented to billing insurance company: Yes Patient informed of any privacy concerns related to visit: Yes Minutes spent on Phone/Video with Pt.: 21 Coding Level of Care Code Tele Est Pt Level 3 (03451) Diagnoses Class 3 severe obesity due to excess calories with serious comorbidity and body mass index (BMI) of 40.0 to 44.9 in adult E66.01; Z68.41 Obesity type: due to excess calories Obesity classification: adult class 3 (BMI >= 40) Serious obesity comorbidity presence: with serious comorbidity Body mass index: BMI 40.0-44.9 Time Spent (min) 21
== END 2024-01-04 11:21 | disposition home or self-care (01) ==
LOC: HO.HBS 08:17
PROVIDERS: PCP Physician Assistant; Visit Provider Surgery
DX: E66.01 Morbid (severe) obesity due to excess calories (principal); Z68.41 Body mass index [BMI] 40.0-44.9, adult
CPT/HCPCS: 99443

== ENCOUNTER → 2024-01-04 08:17 | Outpatient (BNVA) | payer MEDICARE, MEDICAID, SELFPAY | PROVIDERS: PCP Physician Assistant; Visit Provider Surgery ==

== ENCOUNTER 2024-01-08 10:56 | Day surgery (SDC) | payer MEDICARE, MEDICAID, SELFPAY ==
--- NOTE | 2024-01-07 10:23 | P.CONAN_ITS ---
Documented by User: Sandra Sheldon NP 01/07/24 10:24 HPI - Anesthesia Eval Consult details Narrative: 53yo F for Upper Endoscopy and Colonoscopy [facility] Active Problems Active Problems: All Active Problems (Updated 12/07/23 @ 14:16 by Festus Lang PA-C) Learning disability (Acute) Chest pain (Acute) Hyperuricemia (Acute) Asthma (Acute) BMI 38.0-38.9,adult (Acute) Obese (Acute) Lumbar pain (Acute) Carbuncle and furuncle of trunk (Acute) Neuropathy of left lower extremity (Acute) Dizziness (Acute) Family history of MS (multiple sclerosis) (Acute) Knee pain, right (Acute) Chronic pain of right wrist (Acute) High ankle sprain of right lower extremity (Acute) Myalgia (Acute) Lateral epicondylitis (Acute) Insomnia (Acute) GERD (gastroesophageal reflux disease) (Acute) Migraines (Acute) Tobacco dependence (Acute) Lumbar spine pain (Acute) Type 2 diabetes mellitus without complications (Acute) Essential hypertension (Acute) Hyperlipidemia LDL goal <100 (Acute) Colon cancer screening (Acute) Smoker (Acute) Annual physical exam (Acute) Hyperlipidemia (Acute) Migraine (Acute) Allergic rhinitis (Acute) Anxiety (Acute) Past Medical History Medical History (Updated 12/07/23 @ 14:16 by Festus Lang PA-C) Hyperuricemia Asthma Obese Osteoarthritis Trigger finger Carpal tunnel syndrome Hyperlipidemia LDL goal <100 Essential hypertension Hyperlipidemia Cellulitis, umbilical Family History Family History Father Diabetes Hypertension Stroke Heart attack, Onset Age: 50 Mother Multiple sclerosis Brother In good health Son In good health Son In good health Other Patient denies medical problems Surgical History Surgical History (Updated 11/17/23 @ 11:05 by Isaac Mendez MD) History of laparoscopic appendectomy History of foot surgery History of carpal tunnel release H/O: hysterectomy Social History Social History Household Members: Spouse and Other Housing: Apartment Alcohol intake: current Alcohol intake frequency: holidays/special occasions only Patient Tobacco Use Status: Current everyday Tobacco user Tobacco use type: Cigarette Cigarette Packs Per Day: 0.33 Cigarettes Per Day: 6.6 Years Smoked: 43-started at age 8 e-Cigarette/Vaping Use: Never Used Second Hand Smoke Exposure: No Are you DNR?: No Advance Directives: No Advance Directives Information Provided: Yes service: No Current occupational status: disabled Cognitive needs: No Hearing needs: No Vision needs: Yes (glasses) Meds Allergies Allergy/AdvReac Type Severity Reaction Status Date / Time morphine [Morphine] Allergy Intermediate VOMITING Verified 11/17/23 10:56 oxycodone [Percocet] Allergy Unknown Vomiting Verified 11/17/23 10:56 Home Medications Medication Instructions Recorded Confirmed Last Taken Type multivitamin 1 tab PO DAILY 07/31/22 11/17/23 Unknown History Assessment and Plan Assessment Anesthesia Assessment: Chart Reviewed Documented by User: Joycelyn Barrera MD 01/08/24 12:23 [facility] Past Medical History Medical History (Updated 12/07/23 @ 14:16 by Festus Lang PA-C) Hyperuricemia Asthma Obese Osteoarthritis Trigger finger Carpal tunnel syndrome Hyperlipidemia LDL goal <100 Essential hypertension Hyperlipidemia Cellulitis, umbilical Family History Family History Father Diabetes Hypertension Stroke Heart attack, Onset Age: 50 Mother Multiple sclerosis Brother In good health Son In good health Son In good health Other Patient denies medical problems Family history of problems with anesthesia: No Surgical History Surgical History (Updated 11/17/23 @ 11:05 by Isaac Mendez MD) History of laparoscopic appendectomy History of foot surgery History of carpal tunnel release H/O: hysterectomy History of Problems with Anesthesia: No Social History Social History Household Members: Spouse and Other Housing: Apartment Alcohol intake: current Alcohol intake frequency: holidays/special occasions only Patient Tobacco Use Status: Current everyday Tobacco user Tobacco use type: Cigarette Cigarette Packs Per Day: 0.33 Cigarettes Per Day: 6.6 Years Smoked: 43-started at age 8 e-Cigarette/Vaping Use: Never Used Second Hand Smoke Exposure: No Are you DNR?: No Advance Directives: No Advance Directives Information Provided: Yes service: No Current occupational status: disabled Cognitive needs: No Hearing needs: No Vision needs: Yes (glasses) Meds Allergies Allergy/AdvReac Type Severity Reaction Status Date / Time morphine [Morphine] Allergy Intermediate VOMITING Verified 11/17/23 10:56 oxycodone [Percocet] Allergy Unknown Vomiting Verified 11/17/23 10:56 Home Medications Medication Instructions Recorded Confirmed Last Taken Type multivitamin 1 tab PO DAILY 07/31/22 11/17/23 Unknown History Exam Airway Mallampati Class: III TM Dist: >3cm Neck ROM: Full Heart: rrr Lungs: cta Assessment and Plan Assessment Anesthesia Assessment: Anesthesia Plan Discussed Final Anesthetic Review Family History of Problems with Anesthesia: No History of Problems with Anesthesia: No NPO: Yes ASA Class: III Final Preanesthetic Review: No Changes in Pt Med Stat, Meds/Allgs Chart Reviewed and Consent Obtained/Reviewed Patient Risk: Intermediate Procedure Risk: Intermediate Anesthetic Plan Anesthetic Plan: MAC: Disposition: Standard PACU
[2024-01-08 11:59] VITALS: BP 139/79; PULSE 74; RESP 16; TEMP 37; O2SAT 95; BMI 38.3
[2024-01-08] MEDS: Lactated Ringers 1,000 ML 100 ML IVCONT (12:21)
--- NOTE | 2024-01-08 12:38 | MHC.SHP ---
Pre-Procedural Eval Section A - 24 Hr Update-Section A only Date of Service: 01/08/24 The patient is an INPATIENT: No The patient has been examined within 24 hours of the surgical procedure. The History & Physical has been completed within 30 days and I have reviewed it.: No Section B - Complete if H&P > 30 days Chief Complaint: gerd,screening Relevant Family History (Specify if Yes): No Relevant Social History: Tobacco Use Present Medications: see Short Stay Collaborative assessment Medical History: Significant History (Carpal tunnel syndrome Cellulitis, umbilical Essential hypertension Hyperlipidemia Hyperlipidemia LDL goal <100 Osteoarthritis Trigger finger) History of Previous Operations: Relevant previous surgery/procedure and date(s) (H/O: hysterectomy History of carpal tunnel release History of foot surgery) Allergies: Allergies Allergy/AdvReac Type Severity Reaction Status Date / Time morphine [Morphine] Allergy Intermediate VOMITING Verified 11/17/23 10:56 oxycodone [Percocet] Allergy Unknown Vomiting Verified 11/17/23 10:56 Review of Systems Sugical H&P ROS: Negative: Constitution, Cardiovascular, Respiratory and Gastrointestinal Exam Surgical H&P Exam: Normal: Heart, Normal: Lungs, Normal: Extremities and Normal: Abdomen Plan Diagnosis/Plan: Unchanged I have reviewed the history and physical and performed a pertinent physical examination on my patient. No changes have occurred unless specified. Time Spent With Patient Time: Total time managing care of this patient today ____ minutes.
--- NOTE | 2024-01-08 12:40 | W.PM.OPN ---
Operative Note Operative Note Date of Service: 01/08/24 Narrative: FLEXIBLE TRANSORAL UPPER GASTROINTESTINAL ENDOSCOPY WITH BIOPSIES AND COLONOSCOPY TILL CECUM WITH BIOPSIES Pre-op diagnosis: Colon cancer screening (1st colonoscopy), GERD, Intermittent chest pain associated with eating solid food and sometimes at rest which lasts 5 minutes and subsides spontaneously, pt denies dysphagia Post-op diagnosis: GERD, Gastritis, Colon Polyps, Diverticulosis, hemorrhoids Specimens and Sources: : A- Gastric Antrum BX for H.Pylori ?B- Gastric Body BX ?C- Transverse colon polyp Endoscopist:? Karey Irby MD Anesthesia:?MAC UPPER ENDOSCOPY Consent: Indications for the procedure and potential complications of bleeding, perforation, reaction to medications and missed diagnosis were discussed with the patient and informed consent was obtained. Instrument: Olympus GIF H 190 mid size upper endoscope Monitoring: Vital signs and clinical assessment, continuous EKG monitoring, Pulse oximetry, Carbon Dioxide monitoring and blood pressure monitoring were done throughout the procedure. Procedure: The patient was placed in the left lateral decubitis position and pre-procedure medications were administered and a bite block was placed. The endoscope was inserted into the mouth and advanced under direct vision to the third part of duodenum. A careful inspection was made as the upper endoscope was withdrawn including a retroflexed examination of the proximal stomach; Findings and interventions are described below. Findings: Larynx: Normal Esophagus: GE junction at 35 cms. Mildly tortuous esophagus Stomach: Nodular appearing mucosa in the gastric body and fundus - biopsied. Moderate diffuse gastric erythema - biopsies were obtained from the antrum. Grade 2 flap valve on retroflexed examination of the cardia. Duodenum: Normal bulb and descending duodenum Intervention: Biopsies as noted above COLONOSCOPY PROCEDURE NOTE Instrument: Olympus PCF H 190 L variable stiffness pediatric colonoscope Monitoring: Vital signs and clinical assessment, intermittent blood pressure monitoring, continuous EKG monitoring, Pulse oximetry and Carbon Dioxide monitoring were done throughout the procedure. Please see anesthesia flowsheet. Colon withdrawl time was 25 minutes. Procedure: The patient was placed in the left lateral decubitis position and pre-procedure medications were administered. After a digital rectal examination of the ano-rectum, the video colonoscope was inserted into the rectum and advanced through the colon to the cecum. The colonoscope was slowly withdrawn in a retrograde panoramic fashion and the colon mucosa was carefully examined including a retroflexed view of the rectum. Findings and interventions are described below. Procedure Difficulty: LLQ pressure was applied to intubate the cecum Findings: Terminal Ileum: Not evaluated Cecum: Normal Ascending Colon: Normal Transverse Colon: Two 3-4 mm diminutive polyps - removed with a cold biopsy. Descending Colon: Moderate diverticulosis Sigmoid Colon: Severe diverticulosis with luminal narrowing Rectum: Normal Ano-rectum: Small internal hemorrhoids and perianal skin tags Colon preparation: Good after copious irrigation. [place] Bowel Preparation Scale Right colon; 3 Transverse colon: 2 Left colon; 2 (0 = Unprepared colon segment with mucosa not seen due to solid stool that cannot be cleared. 1 = Portion of mucosa of the colon segment seen, but other areas of the colon segment not well seen due to staining, residual stool and/or opaque liquid. 2 = Minor amount of residual staining, small fragments of stool and/or opaque liquid, but mucosa of colon segment seen well. 3 = Entire mucosa of colon segment seen well with no residual staining, small fragments of stool or opaque liquid) Impression and Post Procedure Diagnosis: Endoscopy Findings: ESOPHAGUS: GE junction at 35 cms. Mildly tortuous esophagus STOMACH: Nodular appearing mucosa in the gastric body and fundus - biopsied. Moderate diffuse gastric erythema - biopsies were obtained from the antrum. Colonoscopy Findings: Two small polyps were removed Moderate to severe diverticulosis seen in the left colon Small hemorrhoids on retroflexed exam. Plan: Pt has a FU appointment on 01/18/24 with [facility]. Repeat Colonoscopy in 5 years if polyps are adenomatous and 10 year if polyps are hyperplastic. Above findings were reviewed with the patient and relevant handouts were given and the discharge area. BIOPSIES SHOWED: A. Gastric antrum, biopsy: Gastric antral mucosa with reactive changes and focal minimal chronic inactive inflammation; negative for H pylori, intestinal metaplasia and dysplasia. B. Gastric body, biopsy: Gastric body mucosa with focal minimal chronic inflammation with rare neutrophils; negative for H pylori, intestinal metaplasia and dysplasia. C. Colon, transverse, polyp: Tubular adenoma; negative for high-grade dysplasia and carcinoma
[2024-01-08 13:43] VITALS: BP 126/77; PULSE 80; RESP 16; TEMP 36.2; O2SAT 95
[2024-01-08 13:58] VITALS: BP 126/74; PULSE 68; RESP 20; TEMP 36.5; O2SAT 98
== END 2024-01-08 14:15 | disposition home or self-care (01) ==
PROVIDERS: PCP Physician Assistant; Visit Provider Internal Medicine Gastroenterology
PROC: (CPT 45380; principal; 2024-01-08 14:30)
DX: Z12.11 Encounter for screening for malignant neoplasm of colon (principal); D12.3 Benign neoplasm of transverse colon; K57.30 Diverticulosis of large intestine without perforation or abscess without bleeding; K21.9 Gastro-esophageal reflux disease without esophagitis; K29.50 Unspecified chronic gastritis without bleeding; E66.9 Obesity, unspecified; Z68.38 Body mass index [BMI] 38.0-38.9, adult; I10 Essential (primary) hypertension; E78.5 Hyperlipidemia, unspecified; J45.909 Unspecified asthma, uncomplicated; E11.9 Type 2 diabetes mellitus without complications; Z79.1 Long term (current) use of non-steroidal anti-inflammatories (NSAID); Z79.899 Other long term (current) drug therapy; Z88.5 Allergy status to narcotic agent; F17.210 Nicotine dependence, cigarettes, uncomplicated
CPT/HCPCS: 45380; 43239; 88305; 88313; 88342; J2250; J2704

== ENCOUNTER → 2024-01-08 10:56 | Outpatient (BNV) | payer MEDICARE, MEDICAID, SELFPAY | PROVIDERS: PCP Physician Assistant; Visit Provider Internal Medicine Gastroenterology | DX: Z12.11 Encounter for screening for malignant neoplasm of colon (principal); D12.3 Benign neoplasm of transverse colon; K57.90 Diverticulosis of intestine, part unspecified, without perforation or abscess without bleeding; K64.8 Other hemorrhoids; K21.9 Gastro-esophageal reflux disease without esophagitis; K29.70 Gastritis, unspecified, without bleeding | CPT/HCPCS: 43239; 45380 ==

== ENCOUNTER → 2024-01-11 10:57 | Outpatient (BNVA) | payer MEDICARE, MEDICAID, SELFPAY | PROVIDERS: PCP Physician Assistant; Visit Provider Physician Assistant ==

== ENCOUNTER 2024-01-14 08:58 | Outpatient (REF) | payer MEDICARE, MEDICAID, SELFPAY ==
--- NOTE | ~2024-01-14 | FL_ITS ---
EXAMINATION: XR FLUOROSCOPY UPPER GI WITH AIR CLINICAL INFORMATION: Preop evaluation prior to bariatric surgery COMPARISON: 06/18/2022. TECHNIQUE: Fluoroscopic air contrast upper GI examination was performed utilizing standard techniques with thin and thick barium and effervescent granules. Numerous spot images were obtained. FINDINGS: Dual and single contrast images of the esophagus demonstrate normal caliber, contour, and mucosal pattern. No evidence of stricture, mass, or ulcerations identified. There is to and fro motion of the barium column with nonpropulsive tertiary contractions noted. A small type I hiatal hernia is present. No significant gastroesophageal reflux was seen during the course of the examination and on reflux views. Dual contrast and single contrast images of the stomach demonstrated normal contour. The gastric rugal folds have a thickened appearance. No masses or ulcerations are present. Contrast freely passed into the gastric antrum and duodenal bulb without delay. The duodenal bulb, sweep and proximal jejunum are difficult to evaluate due to paucity of contrast in these structures. Normal course without malrotation. FLUOROSCOPY TIME: 3 minutes 25 seconds Number of Spot Images: 10 Number of Cine: 7 DOSE AREA PRODUCT: [id number] uGy-m2 (microgray-meter squared) FL/FL upper GI w air IMPRESSION: 1. Disordered esophageal peristalsis. 2. Small type I hiatal hernia. No significant gastroesophageal reflux was seen. 3. Thickened appearance of the gastric rugal folds that likely represents gastritis. This procedure was performed by Baldev Haines PA-C, and supervised by Dr. Mejia
== END 2024-01-14 08:59 | disposition home or self-care (01) ==
LOC: HO.XRAY 08:58
PROVIDERS: PCP Physician Assistant; Visit Provider Surgery
DX: E66.9 Obesity, unspecified (principal); Z68.38 Body mass index [BMI] 38.0-38.9, adult; K21.9 Gastro-esophageal reflux disease without esophagitis
CPT/HCPCS: 74246

== ENCOUNTER → 2024-01-14 09:00 | Outpatient (BNV) | payer MEDICARE, MEDICAID, SELFPAY | PROVIDERS: PCP Physician Assistant; Visit Provider Physician Assistant Surgical | DX: Z01.818 Encounter for other preprocedural examination (principal); E66.9 Obesity, unspecified; Z68.38 Body mass index [BMI] 38.0-38.9, adult | CPT/HCPCS: 74246 ==

== ENCOUNTER 2024-01-18 09:45 | Outpatient (AMB) | payer MEDICARE, MEDICAID, SELFPAY ==
--- NOTE | 2024-01-18 09:53 | MHC.OFFVIS ---
Intake Vital Signs 01/18/24 09:54 Height 5 ft 3 in Weight 218 lb BMI 38.6 BP 126/60 Blood Pressure Location Lt brachial Position Sitting Pulse 91 Intake Visit Reasons: s/p egd/colon [place] Intake Note: Patient follow up for EGD/Colonoscopy results. Patient denies any GI issues. 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 Required: No Accompanied by: Self / Same As Patient Allergies morphine [Morphine] Allergy (Intermediate, Verified 01/18/24 09:53) VOMITING oxycodone [Percocet] Allergy (Unknown, Verified 01/18/24 09:53) Vomiting HPI HPI Comments History of Present Illness Details 53-year-old female acid reflux follows up after recent EGD in index screening colonoscopy Acid reflux well controlled at this time dietary modifications with good response She tolerated procedures well Reviewed procedure report, pathology and recommendations Questions asked answered to her satisfaction- She is being followed by weight management, she expresses her motivation to lose weight She has no nausea, vomiting, hematemesis, hematochezia fever chills PFSH Medical History (Updated 01/18/24 @ 10:48 by Jesi Rosales PA-C) Hyperuricemia Asthma Obese Osteoarthritis Trigger finger Carpal tunnel syndrome Hyperlipidemia LDL goal <100 Essential hypertension Hyperlipidemia Cellulitis, umbilical Surgical History History of esophagogastroduodenoscopy (EGD) Hx of colonoscopy History of laparoscopic appendectomy History of foot surgery History of carpal tunnel release H/O: hysterectomy Family History Father Diabetes Hypertension Stroke Heart attack, Onset Age: 50 Mother Multiple sclerosis Brother In good health Son In good health Son In good health Other Patient denies medical problems Social History Household Members: Spouse and Other Housing: Apartment Alcohol intake: current Alcohol intake frequency: holidays/special occasions only Patient Tobacco Use Status: Current everyday Tobacco user Tobacco use type: Cigarette Cigarette Packs Per Day: 0.33 Cigarettes Per Day: 6.6 Years Smoked: 43-started at age 8 e-Cigarette/Vaping Use: Never Used Second Hand Smoke Exposure: No service: No Current occupational status: disabled Cognitive needs: No Hearing needs: No Vision needs: Yes (glasses) Review of Systems Const All systems reviewed & are unremarkable except as noted in HPI and below Physical Exam Vital Signs: Last Vital Signs Pulse 91 01/18/24 09:54 BP 126/60 01/18/24 09:54 BMI result Body Mass Index 38.6 Const General: cooperative, healthy appearing and comfortable Orientation/consciousness: patient oriented x3 Limitations: no limitations Resp Effort & Inspection: normal respiratory effort and able to speak in complete sentences Neuro General: patient oriented x3 Psych Appearance: grossly normal and well kempt Mental Status: mental status grossly normal Speech and movement: Normal speech and movement present Affect: normal affect Attitude: cooperative Thought process: Normal thought process present Thought content: Normal thought content present Insight: Good insight present (Psych) Judgement: Good judgement present (Psych) Results Reviewed Results Reviewed: mpression and Post Procedure Diagnosis: Endoscopy Findings: ESOPHAGUS: GE junction at 35 cms. Mildly tortuous esophagus STOMACH: Nodular appearing mucosa in the gastric body and fundus - biopsied. Moderate diffuse gastric erythema - biopsies were obtained from the antrum. Colonoscopy Findings: Two small polyps were removed Moderate to severe diverticulosis seen in the left colon Small hemorrhoids on retroflexed exam. Plan: Pt has a FU appointment on 01/18/24 with [facility]. Repeat Colonoscopy in 5 years if polyps are adenomatous and 10 year if polyps are hyperplastic. Above findings were reviewed with the patient and relevant handouts were given and the discharge area. BIOPSIES SHOWED: A. Gastric antrum, biopsy: Gastric antral mucosa with reactive changes and focal minimal chronic inactive inflammation; negative for H pylori, intestinal metaplasia and dysplasia. B. Gastric body, biopsy: Gastric body mucosa with focal minimal chronic inflammation with rare neutrophils; negative for H pylori, intestinal metaplasia and dysplasia. C. Colon, transverse, polyp: Tubular adenoma; negative for high-grade dysplasia and carcinoma Assessment & Plan Assessment & Plan (1) Tubular adenoma: Comment: A very pleasant [id number] screening colonoscopy tubular adenoma Code(s): D36.9 - Benign neoplasm, unspecified site Plan: Five year recall colon (2) Diverticulosis of colon: Comment: Reviewed diverticulosis/diverticulitis ER protocol Code(s): K57.30 - Diverticulosis of large intestine without perforation or abscess without bleeding Plan: Food to avoid ER protocol HFD Plan 5 year recall Patient Instructions: Recall polyp surveillance 5 years 2029 Reviewed procedure, pathology and recommendation-many questions answered to satisfaction Literature given on diverticulosis/diverticulitis as well as high-fiber diet Reviewed reflux precautions Continue PPI Encouraged to call with questions or concerns Importance of ER protocol for diverticulosis/diverticular Coding Level of Care Code Est Pt Level 3 (05392) Diagnoses Tubular adenoma D36.9 Diverticulosis of colon K57.30 Time Spent (min) 20
[2024-01-18 09:54] VITALS: BP 126/60; PULSE 91; BMI 38.6
== END 2024-01-18 11:40 | disposition home or self-care (01) ==
PROVIDERS: PCP Physician Assistant; Visit Provider Physician Assistant
DX: D36.9 Benign neoplasm, unspecified site (principal); K57.30 Diverticulosis of large intestine without perforation or abscess without bleeding
CPT/HCPCS: 99213

== ENCOUNTER → 2024-01-18 09:45 | Outpatient (BNVA) | payer MEDICARE, MEDICAID, SELFPAY | PROVIDERS: PCP Physician Assistant; Visit Provider Physician Assistant | DX: K57.30 Diverticulosis of large intestine without perforation or abscess without bleeding (principal); D36.9 Benign neoplasm, unspecified site | CPT/HCPCS: 99212 ==

== ENCOUNTER 2024-01-19 11:55 | Outpatient (REF) | payer MEDICARE, MEDICAID, SELFPAY ==
--- NOTE | ~2024-01-19 | XR_ITS ---
EXAMINATION: XR WRIST, RIGHT CLINICAL INFORMATION: Pain. COMPARISON: None available. TECHNIQUE: PA, lateral, and oblique views of the right wrist. FINDINGS: The bones and soft tissues are normal. No fracture. Alignment is anatomic with normal joint spaces. No erosions or abnormal soft tissue calcifications. XR/XR elbow RT 2V IMPRESSION: Normal right wrist. EXAMINATION: XR ELBOW, RIGHT CLINICAL INFORMATION: Pain. COMPARISON: None available. TECHNIQUE: AP, lateral, and oblique views of the right elbow. FINDINGS: Bony alignment and mineralization are normal. No fracture, dislocation or right elbow joint effusion is seen. On the lateral view, there is very mild osteophyte formation of the ulnohumeral joint anteriorly. A tiny enthesophyte arises from the radial tuberosity. No focal soft tissue swelling, gas or foreign body is seen. IMPRESSION: There is very mild osteoarthritic change of the right glenohumeral joint. No fracture, dislocation or joint effusion is seen.
--- NOTE | ~2024-01-19 | XR_ITS ---
EXAMINATION: XR WRIST, RIGHT CLINICAL INFORMATION: Pain. COMPARISON: None available. TECHNIQUE: PA, lateral, and oblique views of the right wrist. FINDINGS: The bones and soft tissues are normal. No fracture. Alignment is anatomic with normal joint spaces. No erosions or abnormal soft tissue calcifications. XR/XR wrist RT 2V IMPRESSION: Normal right wrist. EXAMINATION: XR ELBOW, RIGHT CLINICAL INFORMATION: Pain. COMPARISON: None available. TECHNIQUE: AP, lateral, and oblique views of the right elbow. FINDINGS: Bony alignment and mineralization are normal. No fracture, dislocation or right elbow joint effusion is seen. On the lateral view, there is very mild osteophyte formation of the ulnohumeral joint anteriorly. A tiny enthesophyte arises from the radial tuberosity. No focal soft tissue swelling, gas or foreign body is seen. IMPRESSION: There is very mild osteoarthritic change of the right glenohumeral joint. No fracture, dislocation or joint effusion is seen.
== END 2024-01-19 11:56 | disposition home or self-care (01) ==
LOC: HO.XRAY 11:55
PROVIDERS: PCP Physician Assistant; Visit Provider Physician Assistant
DX: M25.531 Pain in right wrist (principal); M77.11 Lateral epicondylitis, right elbow; G89.29 Other chronic pain
CPT/HCPCS: 73070; 73100

== ENCOUNTER 2024-01-20 10:12 | Outpatient (AMB) | payer MEDICARE, MEDICAID, SELFPAY ==
--- NOTE | 2024-01-20 10:42 | MHC.WMTHER ---
Intake Intake Visit Reasons: (TV) BH F/U Allergies morphine [Morphine] Allergy (Intermediate, Verified 01/18/24 09:53) VOMITING oxycodone [Percocet] Allergy (Unknown, Verified 01/18/24 09:53) Vomiting PFS Medical History (Updated 01/19/24 @ 07:38 by Festus Lang PA-C) Hyperuricemia Asthma Obese Osteoarthritis Trigger finger Carpal tunnel syndrome Hyperlipidemia LDL goal <100 Essential hypertension Hyperlipidemia Cellulitis, umbilical Surgical History History of esophagogastroduodenoscopy (EGD) Hx of colonoscopy History of laparoscopic appendectomy History of foot surgery History of carpal tunnel release H/O: hysterectomy Family History Father Diabetes Hypertension Stroke Heart attack, Onset Age: 50 Mother Multiple sclerosis Brother In good health Son In good health Son In good health Other Patient denies medical problems Social History Household Members: Spouse and Other Housing: Apartment Alcohol intake: current Alcohol intake frequency: holidays/special occasions only Patient Tobacco Use Status: Current everyday Tobacco user Tobacco use type: Cigarette Cigarette Packs Per Day: 0.33 Cigarettes Per Day: 6.6 Years Smoked: 43-started at age 8 e-Cigarette/Vaping Use: Never Used Second Hand Smoke Exposure: No service: No Current occupational status: disabled Cognitive needs: No Hearing needs: No Vision needs: Yes (glasses) Behavioral Health Assessment Weight Management Therapy Therapy Notes Details Patient stated that her weight keeps fluctuating, she is still smoking but trying to quit using the patch. Currently struggling to afford protein products ,she was encouraged to use her food stamps. Also struggling with pain in her back and leg, waiting on pain management appointment. Patient is looking to have weight loss surgery to help improve her health and quality of life. She reported struggling with the meal plan and is not loosing any weight. No history of mental health treatment and stated that she has never been in therapy or has struggled with depression or anxiety. Pt denied a history of alcohol or drug abuse. She has been smoking cigarettes for about 43 years now. Presenting Concerns Referral Source provider Reason for referral weight loss surgery evaluation Precipitating Event obesity Living Situation Current Living Situation Own At risk of losing current housing? No Satisfied with current living situation? Yes Comments Pt lives with her and her adult step son. She has a grown son who lives on his own as well. Food/Weight/Diet Expectations of change weight loss History/Relationship with food Patient stated she would often skip breakfast and then eat lunch, also would often eat ice cream, steak, pasta, potatoes, pork chops, veggies, beets. Also drinks coffee daily about two cups with splenda and powder creamer. History/Relationship with weight Pt stated that at her heaviest she was around 245lbs and had diabetes. History/Relationship with dieting no real attempts to weight loss other than taking apple cider vinegar. Binge Eating Do you frequently eat large amounts of food in short periods of time, not feeling physically hungry? No Do you feel out of control when you eat a large amount of food in a short period of time? No Do you eat large amounts of food rapidly and typically alone? No Night Eating Do you wake up at least once during the night to eat? No If you wake up in the night, do you find that it is necessary to eat something in order to fall back asleep? No Do you have little or no appetite in the morning and feel very hungry in the evening, often overeating between dinner and when you go to bed? Yes Social History Family history and relationship Pt was born and raised in this area by her parents and siblings. Both parents are . She has been for ten years and has two sons from a previous marriage. Parental/Familial rugby league footballer obligations none Developmental history and status no issues Social support , step son, and youngest son Cultural/Ethnic information Legal Involvement and History Current or historical involvement with the legal system? none reported Education Highest grade completed 7th grade. Patient has learning disability in reading and math. Preferred learning style Auditory and Verbal Currently enrolled in educational program? No Interested in further educational program? No Educational Interests/Skills Patient has been on disability for about 33 years due to learning disability. Employment Employment Status Other Wants help to find employment? No Financial Situation Describe current financial situation Occasional struggle Financial assistance? None, Food [place] and SSDI Service Service? No Mental Health and Addiction Treatment Current/Past substance abuse? No Current/Past addictive behavior concerns? Yes Medical and Physical Health Summary Physical exam in the last year? Yes Pain Screening Current pain? No Pain in the last few months? Yes Medications Is the patient compliant with medications? Yes Does the patient have Pool Guardian in place? Not applicable Does the patient use complimentary health approaches? No Assessment & Plan Assessment & Plan (1) Learning disability: Code(s): F81.9 - Developmental disorder of scholastic skills, unspecified (2) BMI 38.0-38.9,adult: Code(s): Z68.38 - Body mass index [BMI] 38.0-38.9, adult (3) Tobacco dependence: Code(s): F17.200 - Nicotine dependence, unspecified, uncomplicated Plan Patient is a 53 year old female who presents for evaluation looking to have weight loss surgery. She has no previous attempts to weight loss on her own. Smoker for over 40 years and attempting to quit. Did mindset work with her today and challenged her to push herself, no serious mental health issues but other barriers. She will be seen again for more support. Telehealth Telehealth Location of provider rendering services: other Location of patient: address on file Patient Identification confirmed using: Name, : Yes Telehealth method: voice only Patient verbally consented to treatment: Yes Patient verbally consented to billing insurance company: Yes Patient informed of any privacy concerns related to visit: Yes Minutes spent on Phone/Video with Pt.: 30 Coding Level of Care Code Tele Psytx 30 mins (27895) Diagnoses Learning disability F81.9 BMI 38.0-38.9,adult Z68.38 Tobacco dependence F17.200 Time Spent (min) 30
== END 2024-01-20 10:42 | disposition home or self-care (01) ==
LOC: HO.HBST 10:12
PROVIDERS: PCP Physician Assistant; Visit Provider Counselor Mental Health
DX: F81.9 Developmental disorder of scholastic skills, unspecified (principal); Z68.38 Body mass index [BMI] 38.0-38.9, adult; F17.200 Nicotine dependence, unspecified, uncomplicated
CPT/HCPCS: 90832

== ENCOUNTER → 2024-01-20 10:12 | Outpatient (BNVA) | payer MEDICARE, MEDICAID, SELFPAY | PROVIDERS: PCP Physician Assistant; Visit Provider Counselor Mental Health ==

== ENCOUNTER 2024-01-29 13:56 | Outpatient (AMB) | payer MEDICARE, MEDICAID, SELFPAY ==
--- NOTE | 2024-01-29 13:28 | A.OFFVIS_ITS ---
Intake Visit Reasons: Middle to low back pain Allergies morphine [Morphine] Allergy (Intermediate, Verified 01/18/24 09:53) VOMITING oxycodone [Percocet] Allergy (Unknown, Verified 01/18/24 09:53) Vomiting [facility] Medical History (Updated 01/19/24 @ 07:38 by Festus Lang PA-C) Hyperuricemia Asthma Obese Osteoarthritis Trigger finger Carpal tunnel syndrome Hyperlipidemia LDL goal <100 Essential hypertension Hyperlipidemia Cellulitis, umbilical Surgical History History of esophagogastroduodenoscopy (EGD) Hx of colonoscopy History of laparoscopic appendectomy History of foot surgery History of carpal tunnel release H/O: hysterectomy Family History Father Diabetes Hypertension Stroke Heart attack, Onset Age: 50 Mother Multiple sclerosis Brother In good health Son In good health Son In good health Other Patient denies medical problems Social History Household Members: Spouse and Other Housing: Apartment Alcohol intake: current Alcohol intake frequency: holidays/special occasions only Patient Tobacco Use Status: Current everyday Tobacco user Tobacco use type: Cigarette Cigarette Packs Per Day: 0.33 Cigarettes Per Day: 6.6 Years Smoked: 43-started at age 8 e-Cigarette/Vaping Use: Never Used Second Hand Smoke Exposure: No service: No Current occupational status: disabled Cognitive needs: No Hearing needs: No Vision needs: Yes (glasses)
--- NOTE | 2024-01-29 14:07 | A.OFFVIS_ITS ---
Vital Signs 01/29/24 14:08 Height 5 ft 3 in Weight 216 lb BMI 38.3 BP 129/66 Blood Pressure Location Lt brachial Position Sitting Respiration 18 Pulse 84 Pulse Source Pulse Oximeter Pulse Oximetry (%) 96 Oxygen Delivery Method Room Air Intake Visit Reasons: Middle to low back pain Allergies morphine [Morphine] Allergy (Intermediate, Verified 01/29/24 14:02) VOMITING oxycodone [Percocet] Allergy (Unknown, Verified 01/29/24 14:02) Vomiting HPI Comments Details: She lives a very pleasant 53-year-old female who presented to the office today for evaluation management of her left lower back pain Endorses midline lumbar back pain without radiation. She has been suffering with this for at least 6 years. Her most concerning and bothersome symptom is left lower extremity numbness that starts medial thigh down to include the left foot. She says this started about 2 years ago, it had improved for about a year and a half. Approximately 5 months ago it returned and has been constant every day. She states the numbness happens with walking and improves with rest. She denies any symptoms to the right lower extremity. She reports when she is shopping she finds relief with leaning on the shopping cart. Patient goes to the chiropractor every 2 weeks with some improvement of her axi al back pain. She does home exercise program. She has never been to acupuncture or massage. She has never had injections in her back. Patient has taken Tylenol, nonsteroidal anti-inflammatory medications, muscle relaxers and prescription opioid medications without resolution of her pain. She denies red flag symptoms including new loss of bowel, bladder or saddle anesthesia Pain today is rated as 6/10, constant and worse during the day. In terms of muscle damage condition is described as shooting, hot, burning. Pain is negatively impacting patient's enjoyment of life, general activity, no rmal work, recreational activities and walking. Patient states she is concerned that the numbness in the foot will cause her to step on something without realizing it and roll her ankle or break her leg. Patient had recent MRI and EMG, results as per below. [facility] Medical History (Updated 01/29/24 @ 16:34 by Abbie Nguyen, OPTICAL INSTRUMENT REPAIRER, EDGE WORKER) Hyperuricemia Asthma Obese Osteoarthritis Trigger finger Carpal tunnel syndrome Hyperlipidemia LDL goal <100 Essential hypertension Hyperlipidemia Cellulitis, umbilical Surgical History History of esophagogastroduodenoscopy (EGD) Hx of colonoscopy History of laparoscopic appendectomy History of foot surgery History of carpal tunnel release H/O: hysterectomy Family History Father Diabetes Hypertension Stroke Heart attack, Onset Age: 50 Mother Multiple sclerosis Brother In good health Son In good health Son In good health Other Patient denies medical problems Social History Household Members: Spouse and Other Housing: Apartment Alcohol intake: current Alcohol intake frequency: holidays/special occasions only Patient Tobacco Use Status: Current everyday Tobacco user Tobacco use type: Cigarette Cigarette Packs Per Day: 0.33 Cigarettes Per Day: 6.6 Years Smoked: 43-started at age 8 e-Cigarette/Vaping Use: Never Used Second Hand Smoke Exposure: No service: No Current occupational status: disabled Cognitive needs: No Hearing needs: No Vision needs: Yes (glasses) Review of Systems Const All systems reviewed & are unremarkable except as noted in HPI and below Physical Exam Vital Signs: Last Vital Signs Pulse 84 01/29/24 14:08 Resp 18 01/29/24 14:08 BP 129/66 01/29/24 14:08 Pulse Ox 96 01/29/24 14:08 Oxygen Delivery Method Room Air 01/29/24 14:08 BMI result Body Mass Index 38.3 General: awake, alert, oriented. Answers questions appropriately. Fully engaged in examination. Skin: warm, dry, intact HEENT: Normocephalic. Hearing intact. Cardiac: External chest normal in appearance. Respiratory: No cough, audible wheezing or stridor. Abdomen: without gross distension. MS: No obvious swelling or deformities. Able to stand on bilateral tiptoes and bilateral heels.? Able to transition from sit to stand unassisted. Ambulates with bilaterally normal heel strike and toe off Spurling positive bilaterally SLR negative bilaterally Tender to palpation midline lumbar vertebrae Negative clonus, negative footdrop Nontender over PSIS Range of motion intact Bilateral lower extremity strength 5/5 Neurological: Oriented to person, place, time and situation. Thought process intact. No gait abnormalities appreciated. Psychiatric: Appropriate mood and affect. Good judgment and insight. Results Reviewed Results Reviewed: 01/01/24 MR/MR lumbar spine wo con CORONAL ALIGNMENT: There is mid lumbar dextroscoliosis, convex to the right at L3, similar to prior x-rays. SAGITTAL ALIGNMENT: Mild degrees of retrolisthesis are noted at L1-L2, L2-L3 and L3-L4, similar to previous x-rays. Trace anterolisthesis at L4-L5 is unchanged. Lordotic curvature is centered at L3-L4. LUMBOSACRAL JUNCTION: Normal. Hypoplastic ribs at T12. VERTEBRAL BODIES: Mild chronic loss of height of the L4, L3, L2 and L1 vertebral bodies with mild chronic anterior wedging of T11 and T12. No acute or nonhealed fractures. DISC SPACES AND ENDPLATES: Advanced multilevel degenerative changes, with the severe disc space height loss at L3-L4, ullg-ss-ztvlfoxp degrees of disc space height loss at L4-L5 and L5-S1 and moderate disc space height loss at L1-L2 and L2-L3. There is Schmorl's nodes at the levels between T12-L1 and L3-L4 inclusive with multilevel disc desiccation and spondylosis. SPINAL CANAL: Short pedicles are suspected with developmental lumbar spinal canal stenosis. BONE MARROW: Mixed type I and type II degenerative marrow signal changes noted along the endplates at L3-L4. No focally suspicious marrow replacing process or bone marrow edema. CONUS MEDULLARIS: Terminates at L2. Morphology and signal is normal. INTRADURAL NERVE ROOTS: Multilevel crowding of the intradural nerve roots consistent with multilevel spinal canal stenosis. L5-S1: Mild disc bulging, severe right-sided and zzcptqno-bm-oqdpwn left-sided facet joint arthrosis with ligamentum flavum thickening and a right-sided facet joint effusion. Moderate central spinal canal stenosis is noted with mild left and moderate right subarticular recess stenosis with encroachment on the right S1 nerve root. Moderate left-sided and severe right-sided neural foraminal stenosis, with L5 nerve root impingement, right more than left. L4-L5: Diffuse disc bulging and broad-based right posterolateral disc protrusion with flattening of the dural sac with severe right and bsdhgcwq-jf-qvshkz left-sided facet joint arthrosis with ligament of flavum thickening and severe central spinal canal stenosis. There is severe bilateral subarticular recess stenosis likely impinging on the traversing L5 nerve roots bilaterally. There is jhon-kz-gxbcrgue left and vefdxxbm-cc-wjykot right-sided neural foraminal stenosis. Disc herniation abuts the extra foraminal right L4 nerve root. L3-L4: There is concentric disc bulging asymmetric to the right and left posterolateral disc osteophyte complex, with moderate bilateral facet joint arthrosis and ligamentum flavum thickening. There is severe central spinal canal stenosis with marked crowding of the intradural nerve roots with severe bilateral lateral recess stenosis likely impinging on the traversing L4 nerve roots. There is xqwnwvdz-rz-bnzwjm left-sided and moderate right-sided neural foraminal stenosis, with left L3 nerve root impingement. Disc bulging also abuts the extra foraminal right L3 nerve root. L2-L3: Diffuse disc bulging is noted with a left-sided foraminal/extraforaminal extruded disc herniation with mild cephalad migration. Marked flattening of the ventral dural sac is noted with ligamentum flavum thickening and moderate bilateral facet of atrophic changes. There is cvwbsniz-rn-jbjchg central spinal canal stenosis with marked crowding of the intradural nerve roots and there is marked crowding of the subarticular zones bilaterally likely encroaching on the traversing L3 nerve roots bilaterally. There is moderate left and mild right-sided foraminal stenosis. Left lateral disc herniation abuts the extra foraminal left L2 nerve root and disc bulging abuts the extra foraminal right L2 nerve root. L1-L2: Concentric disc bulging is noted with flattening of the ventral dural sac with mild facet joint arthrosis and mild central canal stenosis. Mild narrowing of the left subarticular recess is noted with mild left-sided neural foraminal stenosis. T12-L1: Central to left paramedian extruded disc herniation noted with mild cephalad and caudal migration with left-sided indentation of the ventral thecal sac and mild narrowing of the left subarticular zone with mild central canal narrowing without significant neural foraminal stenosis. Small right paramedian extruded disc herniation with mild cephalad migration noted at T10-T11 without cord impingement. PARAVERTEBRAL AND INCLUDED EXTRASPINAL SOFT TISSUES: There is posterior paraspinal and psoas muscle sarcopenia. Otherwise unremarkable. IMPRESSION: 1. Mid lumbar dextroscoliosis, convex to the right at L3 with multilevel subluxations as described above. 2. Severe multilevel DDD and spondylosis with multilevel disc bulging, disc herniations and disc osteophyte complexes as described above superimposed on developmental lumbar spinal canal stenosis. 3. Multilevel bilateral facet joint arthrosis and ligamentum flavum thickening as detailed by level above. 4. Severe spinal canal stenosis at L4-L5 and L3-L4, enptgzaw-qm-lxhlwg spinal canal stenosis at L2-L3 with mild spinal canal stenosis at L1-L2 and T12-L1. 5. Significant multilevel bilateral neural foraminal stenosis, with multilevel exiting nerve root impingement as detailed by level above. 6. Mild chronic anterior wedging of the T11, T12 and L1 vertebral bodies with no evidence for acute or nonhealed fractures. 10/30/23 EMG IMPRESSION: 1. This is an abnormal study. 2. Cannot rule out a chronic L5-S1 radiculopathy. 3. Sural SNAPs were preserved. Therefore peripheral neuropathy is less likely. Assessment & Plan Assessment & Plan (1) Lumbar canal stenosis: Code(s): M48.061 - Spinal stenosis, lumbar region without neurogenic claudication Category: Medical (2) Lumbar spondylosis: Code(s): M47.816 - Spondylosis without myelopathy or radiculopathy, lumbar region Category: Medical (3) Neuropathy of left lower extremity: Code(s): G57.92 - Unspecified mononeuropathy of left lower limb Category: Medical Plan Vickie is a very pleasant 53-year-old female who presented to the office today for evaluation and management of her left lower back pain and left lower extremity neuropathy. MRI reviewed, as per above History, physical exam and provocative testing consistent with lumbar spondylosis, spinal stenosis. [facility] Patient advised will discuss her case with Dr. Hdz and call her next week, may benefit from caudal COLEMAN versus transforaminal COLEMAN while neuro spine appointment is pending. All questions and concerns were answered, patient agrees with the plan. Follow up in 1 week, sooner if needed. Coding Level of Care Code New Pt Level 4 (06714) Diagnoses Lumbar canal stenosis M48.061 Lumbar spondylosis M47.816 Neuropathy of left lower extremity G57.92
[2024-01-29 14:08] VITALS: BP 129/66; PULSE 84; RESP 18; O2SAT 96; BMI 38.3
== END 2024-01-29 14:52 | disposition home or self-care (01) ==
PROVIDERS: PCP Physician Assistant; Visit Provider Registered Nurse Emergency
DX: M48.061 Spinal stenosis, lumbar region without neurogenic claudication (principal); M47.816 Spondylosis without myelopathy or radiculopathy, lumbar region; G57.92 Unspecified mononeuropathy of left lower limb
CPT/HCPCS: 99204

== ENCOUNTER → 2024-01-29 13:56 | Outpatient (BNVA) | payer MEDICARE, MEDICAID, SELFPAY | PROVIDERS: PCP Physician Assistant; Visit Provider Registered Nurse Emergency | DX: M48.061 Spinal stenosis, lumbar region without neurogenic claudication (principal); M47.816 Spondylosis without myelopathy or radiculopathy, lumbar region; G57.92 Unspecified mononeuropathy of left lower limb | CPT/HCPCS: 99202 ==

== ENCOUNTER 2024-02-02 09:58 | Outpatient (REF) | payer MEDICARE, MEDICAID, SELFPAY ==
--- NOTE | 2024-02-02 10:01 | EMG_ITS ---
Right median and ulnar motor and sensory studies were performed. Right radial sensory and median and lateral antecubital brachial sensory studies were performed and paraspinal muscles were tested with a needle. IMPRESSION: Mild right ulnar neuropathy across cubital tunnel. MD ELI Quintanilla/TENZIN / [id number]
== END 2024-02-02 09:59 | disposition home or self-care (01) ==
LOC: HO.NEURO 09:58
PROVIDERS: PCP Physician Assistant; Visit Provider Physician Assistant
DX: R20.0 Anesthesia of skin (principal)
CPT/HCPCS: 95886; 95910

== ENCOUNTER 2024-02-04 13:00 | Outpatient (AMB) | payer MEDICARE, MEDICAID, SELFPAY ==
--- NOTE | 2024-02-04 13:10 | A.SPINEOV_ITS ---
Intake Visit Reasons: Spinal stenosis, lumbar region Intake Note: Ms. Carey is here today c/o Lower Back pain. [employer] Kil[employer] Worker Required: No Allergies morphine [Morphine] Allergy (Intermediate, Verified 02/04/24 13:10) VOMITING oxycodone [Percocet] Allergy (Unknown, Verified 02/04/24 13:10) Vomiting Assessment & Plan Assessment & Plan (1) Lumbar spondylosis: Code(s): M47.816 - Spondylosis without myelopathy or radiculopathy, lumbar region Category: Medical Plan Dear Abbie Thank you for referring Mrs. Carey to our office today. She is a very nice 53-year-old female who presents to the office today for evaluation of chronic midline low back pain. She tells me that she has had the pain for decades, has a known history of scoliosis but generally has been just dealing with the symptoms. Standing is the worst position. Occasionally her left foot will go numb but she has no lower extremity symptoms to report outside of that. There is no bowel or bladder incontinence to report. The symptoms of the back pain coming go but it is not life altering or disabling. She is generally okay lying down. She is done physical therapy. She sees a chiropractor every other week. If she has having a really bad day she will just rest and put ice on her back and occasionally take Motrin and Tylenol. She has not yet had any injections but as I understand it these are being considered. PMH: History of hypertension, high cholesterol, migraines, asthma, ovarian cyst removal, carpal tunnel, appendectomy. Denies any history of heart attacks, heart disease, strokes, lung problems, GI issues, abdominal surgeries other than the appendectomy, back surgeries, blood clots, coagulopathies. She used to be diabetic but for whatever reason this went away. Social hx: She does smoke a pack and half a day, but denies any alcohol or marijuana. Medications: The patient provided a medication list and this includes clonidine, magnesium, diclofenac, trazodone, losartan, pantoprazole, allopurinol, baclofen, atorvastatin, vitamin-B and Singulair Allergies: Morphine and oxycodone gives her vomiting Physical exam: Pleasant female no acute distress, she is awake alert oriented, upper extremity strength is full, lower extremity strength is full. Reflexes are normal, no clonus, no Reid's sign. She does have scars at both of her wrist from carpal tunnel release. She has a slightly externally rotated left hip in the resting position. Imaging review: Lumbar MRI done at [place] shows extensive degenerative disc disease starting at L2-3 where she has moderate stenosis, L3-4 where she has severe stenosis and a severely collapsed disc on the left side with facet arthropathy, L4-5 severe stenosis with moderate degenerative disc disease, L5-S1 she has wfxp-ww-tgsloskl degenerative discs. She has varying degrees of foraminal stenosis throughout her lumbar spine. I reviewed an old CT scan from 2019 and this shows severely collapsed disc with osteophyte overgrowth on the left at L3-4 and significant reactive changes in the bone at this level as well. Impression: 53-year-old female presents for evaluation of chronic midline low back pain, with diffuse degenerative disc disease in her lumbar spine. She has multiple areas which could explain back pain, not the least of which is the severely collapsed disc at L3-4 on the left, amongst other degenerative discs and facet arthropathies. She does have severe stenosis at L3-4 and L4-5 but does not have any radicular or claudicating lower extremity symptoms outside of an occasional foot numbness when she is standing for too long. At this moment, the symptoms are not disabling and come and go. In the setting of a spine as degenerative as hers, localizing where her back pain is coming from would be difficult, therefore she would most likely be looking at a multilevel fusion. Therefore, I told her that I do not think that time is right for surgery because the symptoms are not disabling and it would be best to follow-up with the pain management office and consider nonsurgical interventions such as injections 1st. If things get to a level where there getting significantly worse, or she starts to develop symptoms in the lower extremities, I told her to come back and we can reassess.. Thank you for allowing us to care for your patient. The total time spent with this visit with this patient was 45 minutes reviewing history, physical exam, lumbar imaging review, and implementation of treatment plan or further diagnostic testing Ac Bull MD,PhD [facility] Coding Level of Care Code New Pt Level 4 (35122) Diagnoses Lumbar spondylosis M47.816
== END 2024-02-04 14:20 | disposition home or self-care (01) ==
PROVIDERS: PCP Physician Assistant; Referring Provider Registered Nurse Emergency; Visit Provider Physician Assistant
DX: M47.816 Spondylosis without myelopathy or radiculopathy, lumbar region (principal)
CPT/HCPCS: 99204; 99214

== ENCOUNTER → 2024-02-04 13:00 | Outpatient (BNVA) | payer MEDICARE, MEDICAID, SELFPAY | PROVIDERS: PCP Physician Assistant; Visit Provider Physician Assistant | DX: M47.816 Spondylosis without myelopathy or radiculopathy, lumbar region (principal); M51.36 Other intervertebral disc degeneration, lumbar region; M48.061 Spinal stenosis, lumbar region without neurogenic claudication | CPT/HCPCS: 99202 ==

== ENCOUNTER 2024-02-24 08:56 | Outpatient (REF) | payer MEDICARE, MEDICAID, SELFPAY ==
--- NOTE | ~2024-02-24 | US_ITS ---
EXAMINATION: US arterial duplex LE BI CLINICAL INFORMATION: PVD. claudication TECHNIQUE: Real-time ultrasound and Doppler techniques (integrating B-mode 2-D vascular images, Doppler spectral analysis and color flow Doppler imaging) were utilized to interrogate the lower extremities. COMPARISON: None FINDINGS: RIGHT LEG: Common femoral artery: 103 cm/s, Triphasic Profunda femoris artery: 70 cm/s, Triphasic Superficial femoral artery (proximal): 90 cm/s, Triphasic Superficial femoral artery (mid): 99 cm/s, Triphasic Superficial femoral artery (distal): 64 cm/s, Triphasic Popliteal artery: 77 cm/s, Triphasic Posterior tibial artery: 119 cm/s, Triphasic Peroneal artery: 45 cm/sec, triphasic Anterior tibial artery: 130 cm/sec, monophasic Dorsalis pedis artery: 126 cm/sec, monophasic LEFT LEG: Common femoral artery: 83 cm/s, Triphasic Profunda femoris artery: 65 cm/s, Triphasic Superficial femoral artery (proximal): 82 cm/s, Triphasic Superficial femoral artery (mid): 103 cm/s, Triphasic Superficial femoral artery (distal): 62 cm/s, Triphasic Popliteal artery: 74 cm/s, Triphasic Posterior tibial artery: 109 cm/s, Triphasic Peroneal artery: 53 cm/sec, triphasic Anterior tibial artery: 137 cm/sec, monophasic Dorsalis pedis artery: 165 cm/sec, monophasic US/US arterial duplex LE BI IMPRESSION: There is no evidence of any hemodynamically significant lower extremity arterial disease by waveform or duplex Doppler criteria at rest.
== END 2024-02-24 08:57 | disposition home or self-care (01) ==
LOC: HO.US 08:56
PROVIDERS: PCP Physician Assistant; Visit Provider Registered Nurse Emergency
DX: I73.9 Peripheral vascular disease, unspecified (principal)
CPT/HCPCS: 93925

== ENCOUNTER 2024-03-02 09:55 | Outpatient (REF) | payer MEDICARE, MEDICAID, SELFPAY | END 2024-03-02 09:56 | disposition home or self-care (01) | LOC: HO.MAMMO 09:55 | PROVIDERS: PCP Physician Assistant; Visit Provider Physician Assistant | DX: Z12.31 Encounter for screening mammogram for malignant neoplasm of breast (principal) | CPT/HCPCS: 77063; 77067 ==

== ENCOUNTER → 2024-03-02 10:15 | Outpatient (BNV) | payer MEDICARE, MEDICAID, SELFPAY | PROVIDERS: PCP Physician Assistant; Visit Provider Radiology Diagnostic Radiology | DX: Z12.31 Encounter for screening mammogram for malignant neoplasm of breast (principal) | CPT/HCPCS: 77063; 77067 ==

== ENCOUNTER 2024-03-28 10:06 | Outpatient (REF) | payer MEDICARE, MEDICAID, SELFPAY ==
[2024-03-28 10:41] LABS: Hematocrit 38.5 % (37.0-47.0); Hemoglobin 12.9 g/dl (12.0-16.0); Mean Corpuscular HGB Conc 33.5 g/dl (31.0-35.0); Mean Corpuscular Hemoglobin 31.2 pg (27.0-33.0); Mean Corpuscular Volume 93.2 fL (80.0-98.0); Mean Platelet Volume 9.4 fL (9.4-12.3); Platelet Count 238 X10*3/uL (160-400); Red Blood Count 4.13 X10*6/uL (4.20-5.50); Red Cell Distribution Width 12.7 % (11.0-16.0); White Blood Count 6.9 X10*3/uL (4.8-10.8)
[2024-03-28 11:06] LABS: Alanine Aminotransferase 24 U/L (0-31); Albumin Level 3.9 g/dL (3.5-5.0); Alkaline Phosphatase 77 U/L (39-117); Anion Gap 11 (12-20); Aspartate Amino Transferase 19 U/L (5-31); Bilirubin Total 0.4 mg/dL (0.0-1.0); Blood Urea Nitrogen 22 mg/dL (9-16); Calcium 9.7 mg/dL (8.4-10.2); Carbon Dioxide 27 mmol/L (22-29); Chloride 108 mmol/L (96-108); Cholesterol 183 mg/dL (<200); Estimated Glomerular Filt Rate > 60; Glucose Fasting 118 mg/dL (60-99); HDL Cholesterol 46 mg/dL (>40); LDL Cholesterol Calculated 94 mg/dL (<100); Potassium 4.1 mmol/L (3.3-5.1); Sodium 142 mmol/L (135-145); Total Protein 6.6 g/dL (6.5-8.0); Triglycerides 218 mg/dL (<150)
== END 2024-03-28 10:07 | disposition home or self-care (01) ==
LOC: HO.LAB 10:06
PROVIDERS: PCP Physician Assistant; Visit Provider Physician Assistant
DX: E78.5 Hyperlipidemia, unspecified (principal); E11.9 Type 2 diabetes mellitus without complications
CPT/HCPCS: 36415; 80053; 80061; 85027

== ENCOUNTER 2024-03-29 11:02 | Outpatient (AMB) | payer MEDICARE, MEDICAID, SELFPAY ==
--- NOTE | 2024-03-29 11:14 | MHC.PC.OV ---
Vital Signs 03/29/24 11:15 Height 5 ft 3 in Weight 218 lb BMI 38.6 Intake Visit Reasons: f/u HTN Allergies morphine [Morphine] Allergy (Intermediate, Verified 02/04/24 13:10) VOMITING oxycodone [Percocet] Allergy (Unknown, Verified 02/04/24 13:10) Vomiting Tobacco use date assessed: 04/09/23 Dental Screening Dental Screen Date: 09/16/23 [facility] Medical History (Updated 02/17/24 @ 16:53 by Festus Lang PA-C) Hyperuricemia Asthma Obese Osteoarthritis Trigger finger Carpal tunnel syndrome Hyperlipidemia LDL goal <100 Essential hypertension Hyperlipidemia Cellulitis, umbilical Surgical History History of esophagogastroduodenoscopy (EGD) Hx of colonoscopy History of laparoscopic appendectomy History of foot surgery History of carpal tunnel release H/O: hysterectomy Family History Father Diabetes Hypertension Stroke Heart attack, Onset Age: 50 Mother Multiple sclerosis Brother In good health Son In good health Son In good health Other Patient denies medical problems Social History Household Members: Spouse and Other Housing: Apartment Alcohol intake: current Alcohol intake frequency: holidays/special occasions only Patient Tobacco Use Status: Current everyday Tobacco user Tobacco use type: Cigarette Cigarette Packs Per Day: 0.33 Cigarettes Per Day: 6.6 Years Smoked: 43-started at age 8 e-Cigarette/Vaping Use: Never Used Second Hand Smoke Exposure: No service: No Current occupational status: disabled Cognitive needs: No Hearing needs: No Vision needs: Yes (glasses) Questionnaire PHQ-9 Over the last 2 weeks, how often have you been bothered by any of the following problems? 1. Little interest or pleasure in doing things: not at all 2. Feeling down, depressed, or hopeless: not at all 3. Trouble falling or staying asleep, or sleeping too much: not at all 4. Feeling tired or having little energy: not at all 5. Poor appetite or overeating: not at all 6. Feeling bad about yourself - or that you are a failure or have let yourself or your family down: not at all 7. Trouble concentrating on things, such as reading the newspaper or watching television: not at all 8. Moving or speaking so slowly that other people could have noticed. Or the opposite - being so fidgety or restless that you have been moving around a lot more than usual: not at all 9. Thoughts that you would be better off or of hurting yourself in some way: not at all Total score: 0 Depression Screening Interpretation: Negative Depression Screening Done: Yes 72113 - PHQ-9 Billing: Yes Source: Developed by Drs. Eduard Sherwood, Rad Covarrubias and colleagues, with an educational enrique from [employer]. Thrive Questionnaire Date Thrive assessed: 03/29/24 I am a: Patient What is your living situation today?: I have a steady place to live Within the past 12 months, did the food you bought not last and you didn't have the money to get more?: Never true Within the past 12 months, did you worry whether your food would run out before you got money to buy more?: Never true Do you have trouble paying for medicines?: No Do you have trouble getting transportation to medical appointments?: No Do you have trouble paying your heating and electricity bill?: No Do you have trouble taking care of your child, family member or friend?: No Do you have trouble with day-to-day activities such as bathing, preparing meals, shopping, managing finances, etc.?: No Are you currently unemployed and looking for a job?: No Are you interested in more education?: No Please select the resources that you would like help with: None Currently or been in a relationship where the following occur: no concerns reported THRIVE Score: 0 SUSANA-7 AMB Questionnaire SUSANA-7 Date SUSANA - 7 assessed: 12/02/21 Source: Developed by Drs. Eduard Sherwood, Rad Covarrubias and colleagues, with an educational enrique from [employer]. Physical exam (Primary Care) Tobacco/Smoking Status: Tobacco use Status Tobacco use date assessed 04/09/23 09/16/23 11:06 Patient Tobacco Use Status Current everyday Tobacco 01/08/24 13:40 Tobacco use type Cigarette 01/08/24 11:59 e-Cigarette/Vaping Use Never Used 09/16/23 11:06 Depression Screening Interpretation: Negative Thrive Assessment: Date of Thrive Assessment Date Thrive assessed 01/07/23 09/16/23 11:06 Currently or been in a relationship where the following occur: no concerns reported Coding
[2024-03-29 11:15] VITALS: BP 110/70; PULSE 72; O2SAT 95; BMI 38.6
--- NOTE | 2024-03-29 11:20 | A.OFFPC_ITS ---
Vital Signs 03/29/24 11:15 Height 5 ft 3 in Weight 218 lb BMI 38.6 BP 110/70 Blood Pressure Location Lt brachial Position Sitting Pulse 72 Pulse Source Pulse Oximeter Pulse Oximetry (%) 95 Oxygen Delivery Method Room Air Intake Visit Reasons: PE Intake Note: Patient is here today for a physical. Occupational Therapist Assistants Required: No Accompanied by: Self / Same As Patient Allergies morphine [Morphine] Allergy (Intermediate, Verified 03/29/24 11:25) VOMITING oxycodone [Percocet] Allergy (Unknown, Verified 03/29/24 11:25) Vomiting Medication List - Last Reconciled 03/29/24 by Festus Lang PA-C acetaminophen ER 650 mg PO Q12H PRN 10 days albuterol sulfate 90 mcg/actuation (Ventolin HFA) 1 puff inhalation QID 30 days allopurinol 100 mg PO DAILY atorvastatin 40 mg PO DAILY 90 days baclofen 10 mg PO BID 90 days blood sugar diagnostic (Clear BooksTouch Verio test strips) 1 strip miscellaneous DAILY clonidine HCl 0.3 mg PO BEDTIME cyanocobalamin (vitamin B-12) (Vitamin B-12) 1,000 mcg PO DAILY diclofenac sodium 75 mg PO BID 90 days ergotamine-caffeine 1-100 mg 1 tab PO Q30M PRN hydrocodone-acetaminophen 5-325 mg 1 tab PO BID PRN 4 days hydroxyzine HCl 10 mg PO BEDTIME 30 days losartan 50 mg PO DAILY magnesium oxide 250 mg PO DAILY 90 days montelukast 10 mg PO DAILY 90 days montelukast 10 mg PO DAILY 90 days multivitamin 1 tab PO DAILY nicotine 1 patch transdermal DAILY nicotine 1 patch transdermal Q24H pantoprazole 40 mg PO DAILY trazodone 300 mg PO BEDTIME 90 days trazodone 100 mg PO BEDTIME 30 days Tobacco use date assessed: 03/29/24 Dental Screening Dental Screen Date: 03/29/24 Did you have a dental visit in the last 12 months?: Yes Did you have a dental problem in the last 6 months where you did not have access to dental care?: No Was dental information given to patient?: Patient has dentist HPI PE HPI Details Patient is a 53-year-old female here today for routine annual physical. Patient has a past medical history significant for type 2 diabetes, obesity, lumbar disc disease, anxiety, hyperlipidemia, smoker Lumbar spinal stenosis: Recently had lumbar spine MRI that did show multilevel lumbar disc disease and central canal stenosis. Has followed up with neurosurgeon whom recommends perhaps getting injections. Would likely benefit from formal physical therapy for her back. She still has left lower foot numbness with long periods of standing or walking. Also underwent EMG of the right upper extremity did show mild cubital tunnel neuropathy. .. DMII:? Diabetes well controlled, has managed to lose weight since last office visit. A1c today acceptable (6.0) ? REports sugars have been 120-150s. Patient is followed by a product manager e commerce and continues on current p.o. medications to control her diabetes. ? .? She is now seeing a dietitian regularly and has been making adjustments in her diet. .. Obesity: She does understand she has gained weight since last office visit. She has seen [facility] though has not been able to lose any weight and stopped going to see [facility] weight management. .. Family history of coronary artery disease: Patient continues on moderate dose statin and cholesterol panel acceptable. Unfortunately having myalgias which thought to be due to her statin medication. Will reduce her dose statin potency .. HTN: Blood pressure is on low side today , will discontinue hydrochlorothiazide and have patient monitor blood pressure at home with goal blood pressure to be above 100/60 in below 140/90 .. Tobacco dependency:? Unfortunately has started smoking again. Not interested in quitting at this time? She does have nicotine patches available to her. .. .. Migraines:? Patient reports she has had a long history of migraines, was on sumatriptan in the past though was ineffective. Now on ergotamine- caffeine which has been very effective for her migraines. Mammogram: Done February2024 BI-RADS 1 Colon cancer screening: colon done in 2023-tubular adenoma polyp found, repeat 5 years Vaccine: Up-to-date with COVID vaccine, tetanus vaccine, pneumonia vaccine and shingles vaccine Laboratory Tests 03/17/23 09/16/23 11/18/23 10:46 11:01 10:10 Hgb Creatinine Random Glucose 116 H Fasting Glucose Hgb A1c (Clinic) 5.7 6.0 Hemoglobin A1c % 5.7 Triglycerides 305 H Cholesterol LDL Cholesterol, C alc 121 H 03/28/24 10:23 Hgb 12.9 Creatinine 0.82 Random Glucose Fasting Glucose 118 H Hgb A1c (Clinic) Hemoglobin A1c % Triglycerides 218 H Cholesterol 183 LDL Cholesterol, C alc 94 PFSH Medical History Hyperuricemia Asthma Obese Osteoarthritis Trigger finger Carpal tunnel syndrome Hyperlipidemia LDL goal <100 Essential hypertension Hyperlipidemia Cellulitis, umbilical Surgical History History of esophagogastroduodenoscopy (EGD) Hx of colonoscopy History of laparoscopic appendectomy History of foot surgery History of carpal tunnel release H/O: hysterectomy Family History Father Diabetes Hypertension Stroke Heart attack, Onset Age: 50 Mother Multiple sclerosis Brother In good health Son In good health Son In good health Other Patient denies medical problems Social History (Updated 03/29/24 @ 11:32 by Festus Lang PA-C) Household Members: Spouse and Other Housing: Apartment Alcohol intake: current Alcohol intake frequency: a few times a month Alcohol type: beer Patient Tobacco Use Status: Current everyday Tobacco user Tobacco use type: Cigarette Cigarette Packs Per Day: 0.33 Cigarettes Per Day: 6.6 Years Smoked: 43-started at age 8 e-Cigarette/Vaping Use: Never Used Second Hand Smoke Exposure: No service: No Current occupational status: disabled Cognitive needs: No Hearing needs: No Vision needs: Yes (glasses) Questionnaire PHQ-9 Over the last 2 weeks, how often have you been bothered by any of the following problems? 1. Little interest or pleasure in doing things: not at all 2. Feeling down, depressed, or hopeless: not at all 3. Trouble falling or staying asleep, or sleeping too much: not at all 4. Feeling tired or having little energy: not at all 5. Poor appetite or overeating: not at all 7. Trouble concentrating on things, such as reading the newspaper or watching television: not at all 8. Moving or speaking so slowly that other people could have noticed. Or the opposite - being so fidgety or restless that you have been moving around a lot more than usual: not at all 9. Thoughts that you would be better off or of hurting yourself in some way: not at all Depression Screening Interpretation: Negative Depression Screening Done: Yes 89989 - PHQ-9 Billing: Yes Source: Developed by Drs. Eduard Sherwood, Arlen Valdes, Rad Yao and colleagues, with an educational enrique from [employer]. Thrive Questionnaire Date Thrive assessed: 03/29/24 I am a: Patient What is your living situation today?: I have a steady place to live Within the past 12 months, did the food you bought not last and you didn't have the money to get more?: Never true Within the past 12 months, did you worry whether your food would run out before you got money to buy more?: Never true Do you have trouble paying for medicines?: No Do you have trouble getting transportation to medical appointments?: No Do you have trouble paying your heating and electricity bill?: No Do you have trouble taking care of your child, family member or friend?: No Do you have trouble with day-to-day activities such as bathing, preparing meals, shopping, managing finances, etc.?: No Are you currently unemployed and looking for a job?: No Are you interested in more education?: No Please select the resources that you would like help with: None Currently or been in a relationship where the following occur: no concerns reported THRIVE Score: 0 AUDIT C Alcohol Use Questionnaire (AUDIT-C) 1. How often do you have a drink containing alcohol?: Monthly or less 2. How many drinks containing alcohol do you have on a typical day when you are drinking?: 1 or 2 3. How often do you have six or more drinks on one occasion?: Never Total Score: 1 SUSANA-7 AMB Questionnaire SUSANA-7 Date SUSANA - 7 assessed: 03/29/24 Feeling nervous, anxious, or on edge: 0 = Not at all Not being able to stop or control worryin = Not at all Worrying too much about different things: 0 = Not at all Trouble relaxin = Not at all Being so restless that it is hard to sit still: 0 = Not at all Becoming easily annoyed or irritable: 0 = Not at all Feeling afraid as if something awful might happen: 0 = Not at all Total SUSANA-7 score (0-4 normal; 5-9 mild; 10-14 moderate; 15-21 severe): 0 Source: Developed by Drs. Eduard Sherwood, Arlen Valdes, Rad Yao and colleagues, with an educational enrique from [employer]. SUSANA-7 Assessment Billing SUSANA-7 Assessment Tool: SUSANA-7 Assessment 17588 Review of Systems Const Denies body aches, Denies chills, Denies excessive sweating, Denies fatigue, Denies fever(s) and Denies headache(s) Eyes Denies blurry vision ENT Denies dysphagia, Denies vertigo, Denies dizziness, Denies headache(s), Denies hearing loss and Denies tinnitus Card Denies chest pain, Denies chest pain with activity, Denies syncope, Denies irregular heart rhythm and Denies dyspnea Resp Denies chest congestion, Denies cough, Denies hemoptysis, Denies dyspnea and Denies wheezing GI Denies abdominal pain, Denies melena, Denies hematochezia, Denies coffee ground emesis, Denies dysphagia, Denies diarrhea, Denies nausea and Denies vomiting Denies urinary frequency, Denies dysuria, Denies urinary hesitancy and Denies urinary urgency Musc Denies arthralgias, Denies limited range of motion, Denies muscle cramps and Denies muscle weakness Skin/Breast Denies rash and Denies skin ulcer Neuro Denies Abnormal speech present, Denies confusion, Denies vertigo, Denies dizziness, Denies syncope, Denies headache(s), Denies memory loss and Denies seizure-like activity Psych Denies anxiety, Denies confusion, Denies depression, Denies memory loss, Denies panic attacks and Denies paranoia Endo Denies excessive sweating, Denies fatigue, Denies flushing, Denies polydipsia and Denies polyuria Aller/Immun Denies wheezing Physical exam (Primary Care) Vital Signs: Last Vital Signs Pulse 72 03/29/24 11:15 BP 110/70 03/29/24 11:15 Pulse Ox 95 03/29/24 11:15 Oxygen Delivery Method Room Air 03/29/24 11:15 BMI result Body Mass Index 38.6 BMI Assessment/Plan discussion: High BMI High, discussed plan: lifestyle, weight reduction, dietary and physical activity Tobacco/Smoking Status: Tobacco use Status Tobacco use date assessed 03/29/24 03/29/24 11:23 Patient Tobacco Use Status Current everyday Tobacco 03/29/24 11:32 Tobacco use type Cigarette 03/29/24 11:32 e-Cigarette/Vaping Use Never Used 03/29/24 11:32 Are you ready to quit: No Tobacco cessation counseling provided: Yes Items discussed: Nicotine replacement Relapse Prevention: discussed the importance of a supportive environment, dis cussed negative mood or depression after quitting, weight gain after smoking is common and discussed dietary, exercise and/or lifestyle changes Number of minutes spent counselin CPT code: 79014 - 4-10 Minutes Depression Screening Interpretation: Negative Thrive Assessment: Date of Thrive Assessment Date Thrive assessed 03/29/24 03/29/24 11:23 Currently or been in a relationship where the following occur: no concerns reported Const General: cooperative, comfortable, no acute distress, alert and awake; No confusion Orientation/consciousness: oriented to person, oriented to place, patient oriented x3 and No confusion HENMT Head: Yes normocephalic Ears: external ears normal and TM's normal bilaterally Face and sinus: No sinus tenderness Mouth: Normal oral and palatal mucosa present and tongue normal Teeth and gingiva: dentition normal and gingiva normal Throat: Yes posterior oropharynx normal, Yes tonsils normal and Yes uvula midline Eyes Conjunctivae: conjunctivae normal Sclerae: sclerae normal Pupils: Equal, round and reactive pupils present EOM: EOMs intact bilaterally Direct Ophthalmoscopy: No no photophobia Neck Neck: Yes no lymphadenopathy, No tender and Yes no JVD Thyroid: Thyroid normal Carotids: no bruits Chest Chest palpation & inspection: no tenderness Resp Effort & Inspection: normal respiratory effort, no audible wheezes, not labored and no stridor Auscultation: no crackles, no rales, no rhonchi and no wheezes Cardio Jugular venous distension: no JVD Rate: regular rate, not bradycardic and not tachycardic Rhythm: regular rhythm Bruits: no carotid bruits Peripheral pulses: Peripheral pulses 2+ throughout GI Inspection: Yes normal to inspection, No abdominal wall ecchymosis and No visible herniation Palpation (GI): Soft to palpation, nontender, no guarding, not rigid and No hepatosplenomegaly present Auscultation: normoactive bowel sounds General: Yes no CVA tenderness Back/Spine/Pelvis Back: no CVA tenderness and No back tenderness Cervical Spine: cervical ROM normal Thoracic/Lumbar Spine: thoracic and lumbar spine normal to inspection, straight leg raise negative bilaterally, No thoraco-lumbar ROM limited and No lumbar spinal tenderness Skin Lesions: no lesions Rashes: no rashes Wounds: no wounds Neuro General: oriented to person, oriented to place, patient oriented x3, CN's II-XI intact bilaterally and No confusion Cranial nerves: Yes Equal, round and reactive pupils present and Yes Normal accommodation reflex present Cognition (Neuro): normal cognition Speech: No Abnormal speech present Gait exam (Neuro): Normal gait present Motor exam (neuro): 5/5 motor strength present throughout Extrem Right upper extremity: full ROM; no cyanosis Left upper extremity: full ROM; no cyanosis Right lower extremity: no edema Left lower extremity: no edema Psych Appearance: grossly normal Mental Status: mental status grossly normal Affect: normal affect Attitude: cooperative Thought process: Normal thought process present Assessment and Plan Assessment & Plan (1) Annual physical exam: Code(s): Z00.00 - Encounter for general adult medical examination without abnormal findings (2) Hyperlipidemia: Code(s): E78.5 - Hyperlipidemia, unspecified Qualifiers: Hyperlipidemia type: mixed hyperlipidemia Qualified Code(s): E78.2 - Mixed hyperlipidemia Plan: Lipid panel acceptable. Patient continues on lower dose statin therapy. Goal LDL to remain below 100 . (3) Type 2 diabetes mellitus without complications: Code(s): E11.9 - Type 2 diabetes mellitus without complications Qualifiers: Diabetes mellitus custodial insulin use: without custodial use Qualified Code(s): E11.9 - Type 2 diabetes mellitus without complications Plan: Patient's type 2 diabetes well controlled at this time with lifestyle management. Most recent fasting blood sugar 118. Was previously on metformin She will like to continue working on lifestyle and dietary modifications. Will continue to follow fasting blood sugar and A1c with goal A1c to be below 7.0 (4) Obese: Code(s): E66.9 - Obesity, unspecified Qualifiers: Body mass index: BMI 40.0-44.9 Obesity classification: adult class 3 (BMI >= 40) Obesity type: due to excess calories Serious obesity comorbidity presence: with serious comorbidity Qualified Code(s): E66.01 - Morbid (severe) obesity due to excess calories; Z68.41 - Body mass index [BMI]40.0-44.9, adult Plan: Unfortunately has not been able to lose any weight.. Patient does understand her BMI is well over 30 will work on being more physically active and adapting to better eating habits to reduce her weight (5) Smoker: Code(s): F17.200 - Nicotine dependence, unspecified, uncomplicated Plan: Unfortunately patient continues to smoke 4-5 cigarettes per day, she does understand she needs to quit though is concerned about quitting . Finds it very difficult to quit due to a partner also smoking. She does have nicotine replacement available to her. (6) Lumbar canal stenosis: Code(s): M48.061 - Spinal stenosis, lumbar region without neurogenic claudication Qualifiers: Neurogenic claudication status: with neurogenic claudication Qualified Code(s): M48.062 - Spinal stenosis, lumbar region with neurogenic claudication Plan: Now followed by pain management and neurosurgeon for her lumbar disc disease. Still has left foot numbness with long periods of standing and walking (7) Claudication: Code(s): I73.9 - Peripheral vascular disease, unspecified Plan: Claudication symptoms still present, ultrasounds of lower extremities without significant peripheral vascular disease, symptoms likely neuropathic due to her severe lower lumbar disc disease. Orders: Orders PT Evaluation and Treatment Today M47.816 - Spondylosis without myelopathy or radiculopathy, lumbar region, M51.9 - Unspecified thoracic, thoracolumbar and lumbosacral intervertebral disc disorder Comprehensive [place]. Panel Fast Today E11.9 - Type 2 diabetes mellitus without complications Hemoglobin A1c Today E11.9 - Type 2 diabetes mellitus without complications Microalbumin, Random (w Creat) Today I10 - Essential (primary) hypertension Medications: Refilled montelukast 10 mg PO DAILY 90 tabs 2RF 90 days J30.9 - Allergic rhinitis, unspecified losartan 50 mg PO DAILY 90 tabs 1RF I10 - Essential (primary) hypertension Patient Instructions: Goal: Blood pressure to be below 140/90, A1c to be below 7.0 Barriers: Adherence to physical activity and healthy eating habits. Coding Level of Care Code Est Pt Prev Care 40-64y(58889) Diagnoses Annual physical exam Z00.00 Mixed hyperlipidemia E78.2 Hyperlipidemia type: mixed hyperlipidemia Type 2 diabetes mellitus without complication, without long-term current use of insulin E11.9 Diabetes mellitus custodial insulin use: without custodial use Class 3 severe obesity due to excess calories with serious comorbidity and body mass index (BMI) of 40.0 to 44.9 in adult E66.01; Z68.41 Body mass index: BMI 40.0-44.9 Obesity classification: adult class 3 (BMI >= 40) Obesity type: due to excess calories Serious obesity comorbidity presence: with serious comorbidity Smoker F17.200 Spinal stenosis of lumbar region with neurogenic claudication M48.062 Neurogenic claudication status: with neurogenic claudication Claudication I73.9 Additional Codes SUSANA-7 Assessment Billing - SUSANA-7 Assessment Tool: SUSANA-7 Assessment 46324 ([id number]) Vital Signs *Quality* - CPT code: 73917 - 4-10 Minutes ([id number])
== END 2024-03-29 11:52 | disposition home or self-care (01) ==
PROVIDERS: PCP Physician Assistant; Visit Provider Physician Assistant
DX: Z00.00 Encounter for general adult medical examination without abnormal findings (principal); E11.41 Type 2 diabetes mellitus with diabetic mononeuropathy; I73.9 Peripheral vascular disease, unspecified; M48.062 Spinal stenosis, lumbar region with neurogenic claudication
CPT/HCPCS: 99396

== ENCOUNTER 2024-07-11 11:00 | Outpatient (RCR) | payer MEDICARE, MEDICAID, SELFPAY ==
--- NOTE | 2024-05-18 08:31 | MHC.PT.EP ---
[facility] [place] [facility] [place] [facility] [place] [facility] [address] Sowmya Winters [address] [phone] F: [phone] F: [phone] F: [phone] F: [phone] Physical Therapy Plan of Care Date of Evaluation: 05/17/24 Date of Surgery: n/a Diagnosis: Unspecified thoracic, thoracoulumbar and lumbosacral interveretbral disc disorder Spondylosis without myelopathy or radiculopathy, lumbar region Assessment: Pt is a pleasant 53yo F who presents to PT with low back pain. Pt initially denies radicular symptoms however she mentioned her L foot goes numb after standing for ~4-5 minutes. Pt presents to PT with current impairments in pain, decreased lumbar ROM, decreased core stabilization, decreased hip/glute strength, posterior chain tightness, and impaired gait. She is limited functionally by bending, showering, prolonged sitting, prolonged standing, and stair navigation. She is a good candidate for skilled PT in order to address current impairments to facilitate return to PLOF. She is recommended to be seen 2x/week for 4 weeks and will be reassessed at that time Frequency and Duration: The patient will be seen 2x/week for 4 weeks Short Term Goals: Pt will be I with HEP to promote self management of symptoms Pt will have centralization of LLE symptoms with standing and walking Longterm Goals: Pt will tolerate standing and walking > 20 minutes without radicular symptoms Pt will demonstrate ability to squat and picker and sorter load and unload object from the floor with proper mechanics with minimal to no discomfort Pt will demonstrate improvements in function as evidenced by statistically significant improvement in Modified Oswestry Low Back Pain Disability Questionnaire Treatment Plan: Modalities to reduce pain, spasms and effusion. Manual therapy to restore motion and function. Therapeutic exercise to improve strength and flexibility. Neuromuscular re-education for posture and balance. Therapeutic activities to return to functional activities of daily living. Electronically signed by: Carolina Gray, PT, DPT Please sign and return to therapist. Thank you for your referral.
--- NOTE | 2024-07-12 10:13 | MHC.PT.DC ---
[facility] [place] [facility] [place] [facility] [place] [facility] [address] Sowmya Winters [address] [phone] F: [phone] F: [phone] F: [phone] F: [phone] Physical Therapy Discharge Report Diagnosis: Unspecified thoracic, thoracoulumbar and lumbosacral interveretbral disc disorder Spondylosis without myelopathy or radiculopathy, lumbar region Date of Surgery: n/a Date of Evaluation: 05/17/24 Date of Discharge: 07/12/24 Treatments to Date: 10 Cancellations to Date: 3 No Shows to Date: Discharge Status: Achieved Goals Improved Function Independent with HEP Discharge Summary: Pt has made excellent progress since SOC. She has had a decrease in pain and centralization of symptoms. She has met her STGs and LTGs. She has improved her score on Modified Oswestry Low Back Pain Disability Index Questionnaire from 28/50 on initial PT evaluation to 6/50 at D/C. She is independent with HEP. She is being D/C to HEP at this time. Provided pt with printed, updated copy of HEP Electronically signed by: Carolina Gray, PT, DPT Please sign and return to therapist. Thank you for your referral.
== END 2024-07-12 10:14 | disposition home or self-care (01) ==
LOC: HO.PT 11:00
PROVIDERS: PCP Physician Assistant; Visit Provider Physician Assistant
DX: M51.9 Unspecified thoracic, thoracolumbar and lumbosacral intervertebral disc disorder (principal); M47.816 Spondylosis without myelopathy or radiculopathy, lumbar region
CPT/HCPCS: 97110; 97140; 97162

== ENCOUNTER 2024-08-01 10:58 | Outpatient (AMB) | payer MEDICARE, MEDICAID, SELFPAY ==
--- NOTE | 2024-08-01 11:03 | HO.SPINEOV ---
Intake Visit Reasons: 6 month f/u Intake Note: Ms. Carey is here today for her 6 Month's F/u. 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 Please see my previous note for the specifics of the problem. She has had chronic low back pain for years bilaterally. More recently over the last week she has developed a severe anterior thigh pain that goes down the front of her thigh as well as in the back of her thigh. She has been having a lot of trouble just standing walking. The areas hypersensitive and feels a little numb. She has a little bit of weakness with hip flexion as well but I am not sure if this suggest pain related. No specific focal loss of strength. Reflexes are absent at the patella. She walks with a limp here in the office today. I discussed with her previously that she has an extensively degenerative spine with severe stenosis at multiple levels, the worst at L3-4 and L4-5. She has a slight scoliotic curvature as well with significant disc degeneration at multiple levels. Targeting a correction for her degenerative discs would be difficult and she is likely looking at 2, maybe 3 level lumbar fusion to address back pain. Because the pain was not disabling, we were trying to wait it out a bit. The new pain that she has developed down her leg in the anterior thigh in the posterior thigh has only been present now for about a week. I told her I would call her in a prescription for Medrol Dosepak, gabapentin and I will have her follow-up with Dr. Mcallister who is here in the office today. I showed him the films in he is going to attempt an epidural at L2-3 and see he can get some of the medication to trickle down along the L3-4 area where she has the worst stenosis. Hopefully that will help some of the leg pain. If this ultimately fails, she may end up needing surgery. We discussed the fact that fusion surgery for chronic back pain and decompression surgery to help with leg pain are distinctly different operations and that depending on the results of the injections and how she progresses we would tailor a surgery specifically for the problem that she is having at that time. Total amount of time spent in this visit was 20 minutes in discussion of symptoms, lumbar MRI imaging results and subsequent plan of care Ac Bull MD,PhD [facility] Medications: New methylprednisolone take as directed on package 4 mg PO DAILY 21 ea 0RF gabapentin 300 mg PO TID 90 caps 11RF Coding Level of Care Code Est Pt Level 3 (65661) Diagnoses Lumbar spondylosis M47.816
== END 2024-08-01 12:14 | disposition home or self-care (01) ==
PROVIDERS: PCP Physician Assistant; Visit Provider Physician Assistant
DX: M47.816 Spondylosis without myelopathy or radiculopathy, lumbar region (principal)
CPT/HCPCS: 99213

== ENCOUNTER → 2024-08-01 10:58 | Outpatient (BNVA) | payer MEDICARE, MEDICAID, SELFPAY | PROVIDERS: PCP Physician Assistant; Visit Provider Physician Assistant | DX: M47.816 Spondylosis without myelopathy or radiculopathy, lumbar region (principal) | CPT/HCPCS: 99212 ==

== ENCOUNTER 2024-08-03 10:54 | Outpatient (AMB) | payer MEDICARE, MEDICAID, SELFPAY ==
[2024-08-03 11:16] VITALS: BP 104/62; PULSE 80; O2SAT 98; BMI 37.3
--- NOTE | 2024-08-03 11:16 | A.OFFPC_ITS ---
Vital Signs 08/03/24 11:16 Height 5 ft 3 in Weight 210 lb 6 oz BMI 37.3 BP 104/62 Blood Pressure Location Lt brachial Position Sitting Pulse 80 Pulse Source Pulse Oximeter Pulse Oximetry (%) 98 Oxygen Delivery Method Room Air Intake Visit Reasons: f/u DMII/ HTN Planning Director Required: No Accompanied by: Self / Same As Patient Allergies morphine [Morphine] Allergy (Intermediate, Verified 08/03/24 11:26) VOMITING oxycodone [Percocet] Allergy (Unknown, Verified 08/03/24 11:26) Vomiting Medication List - Last Reconciled 08/03/24 by Festus Lang PA-C acetaminophen ER 650 mg PO Q12H PRN 10 days albuterol sulfate 90 mcg/actuation (Ventolin HFA) 1 puff inhalation QID 30 days allopurinol 100 mg PO DAILY atorvastatin 40 mg PO DAILY 90 days baclofen 10 mg PO BID 90 days blood sugar diagnostic (AntCorTouch Verio test strips) 1 strip miscellaneous DAILY clonidine HCl 0.3 mg PO BEDTIME cyanocobalamin (vitamin B-12) (Vitamin B-12) 1,000 mcg PO DAILY diclofenac sodium 75 mg PO BID 90 days ergotamine-caffeine 1-100 mg 1 tab PO Q30M PRN gabapentin 300 mg PO TID hydrocodone-acetaminophen 5-325 mg 1 tab PO BID PRN 4 days hydroxyzine HCl 10 mg PO BEDTIME 30 days losartan 50 mg PO DAILY magnesium oxide 250 mg PO DAILY 90 days methylprednisolone 4 mg PO DAILY montelukast 10 mg PO DAILY 90 days multivitamin 1 tab PO DAILY nicotine 1 patch transdermal DAILY nicotine 1 patch transdermal Q24H pantoprazole 40 mg PO DAILY trazodone 300 mg PO BEDTIME 90 days trazodone 100 mg PO BEDTIME 30 days Tobacco use date assessed: 03/29/24 Dental Screening Dental Screen Date: 03/29/24 HPI f/u DMII/ HTN HPI Details Patient is a 53-year-old female here today for a follow-up visit. Patient has a past medical history significant for type 2 diabetes, obesity, lumbar disc disease, anxiety, hyperlipidemia, smoker Lumbar spinal stenosis: Recently had lumbar spine MRI that did show multilevel lumbar disc disease and central canal stenosis. Has followed up with neurosurgeon whom recommends perhaps getting injections. Would likely benefit from formal physical therapy for her back. She still has left lower foot numbness with long periods of standing or walking. Patient has not recently been started on steroid taper and gabapentin. She does have hydrocodone that she uses on a very limited p.r.n. basis for pain scales of 9-10 .. DMII:? Diabetes well controlled, has managed to lose weight since last office visit. A1c today acceptable (5.7) ? REports sugars have been 120-150s. Patient is followed by a pharmacy care coordinator and continues on current p.o. medications to control her diabetes. ? .? She is now seeing a dietitian regularly and has been making adjustments in her diet. .. Class 2 Obesity: Has lost weight since last office visit She does understand she has gained weight since last office visit. .. Family history of coronary artery disease: Patient continues on moderate dose statin and cholesterol panel acceptable. Unfortunately having myalgias which thought to be due to her statin medication. Will reduce her dose statin potency .. HTN: Blood pressure is on low side today , will discontinue hydrochlorothiazide and have patient monitor blood pressure at home with goal blood pressure to be above 100/60 in below 140/90 .. Former Tobacco dependency:? She reports she has stopped smoking over the last month. She does have nicotine patches available to her. .. .. Migraines:? Patient reports she has had a long history of migraines, was on sumatriptan in the past though was ineffective. Now on ergotamine- caffeine which has been very effective for her migraines. [facility] Medical History Hyperuricemia Asthma Obese Osteoarthritis Trigger finger Carpal tunnel syndrome Hyperlipidemia LDL goal <100 Essential hypertension Hyperlipidemia Cellulitis, umbilical Surgical History History of esophagogastroduodenoscopy (EGD) Hx of colonoscopy History of laparoscopic appendectomy History of foot surgery History of carpal tunnel release H/O: hysterectomy Family History Father Diabetes Hypertension Stroke Heart attack, Onset Age: 50 Mother Multiple sclerosis Brother In good health Son In good health Son In good health Other Patient denies medical problems Social History Household Members: Spouse and Other Housing: Apartment Alcohol intake: current Alcohol intake frequency: a few times a month Alcohol type: beer Patient Tobacco Use Status: Current everyday Tobacco user Tobacco use type: Cigarette Cigarette Packs Per Day: 0.33 Cigarettes Per Day: 6.6 Years Smoked: 43-started at age 8 e-Cigarette/Vaping Use: Never Used Second Hand Smoke Exposure: No service: No Current occupational status: disabled Cognitive needs: No Hearing needs: No Vision needs: Yes (glasses) Questionnaire Thrive Questionnaire Date Thrive assessed: 03/29/24 SUSANA-7 AMB Questionnaire SUSANA-7 Date SUSANA - 7 assessed: 03/29/24 Source: Developed by Drs. Eduard Sherwood, Arlen Valdes, Rad Yao and colleagues, with an educational enrique from [employer]. Review of Systems Const Denies headache(s) Eyes Denies loss of vision and Reports eye pain ENT Denies vertigo, Denies dizziness, Denies headache(s) and Denies sore throat Card Denies chest pain, Denies leg edema and Denies lightheadedness Resp Denies cough, Denies hemoptysis and Denies wheezing GI Denies abdominal pain, Denies melena, Denies constipation, Denies diarrhea and Denies vomiting Denies urinary frequency, Denies dysuria and Denies urinary urgency Musc Reports back pain, Denies arthralgias, Denies joint swelling, Denies numbness and Denies tingling Neuro Denies Abnormal speech present, Denies behavioral changes, Denies vertigo, Denies dizziness, Denies headache(s), Denies loss of vision, Denies memory loss, Denies numbness and Denies tingling Psych Denies anxiety, Denies behavioral changes, Denies depression, Denies memory loss and Denies panic attacks Otis/Lymph Denies easy bleeding and Denies easy bruising Aller/Immun Denies wheezing Physical exam (Primary Care) Vital Signs: Last Vital Signs Pulse 80 08/03/24 11:16 BP 104/62 08/03/24 11:16 Pulse Ox 98 08/03/24 11:16 Oxygen Delivery Method Room Air 08/03/24 11:16 BMI result Body Mass Index 37.3 Tobacco/Smoking Status: Tobacco use Status Tobacco use date assessed 03/29/24 08/03/24 11:16 Patient Tobacco Use Status Current everyday Tobacco 08/03/24 11:16 Tobacco use type Cigarette 08/03/24 11:16 e-Cigarette/Vaping Use Never Used 08/03/24 11:16 Thrive Assessment: Date of Thrive Assessment Date Thrive assessed 03/29/24 08/03/24 11:16 Const General: healthy appearing, no acute distress, alert and awake Nutritional Appearance: well nourished Orientation/consciousness: oriented to person, oriented to place and oriented to time HENMT Ears: TM's normal bilaterally General nose exam: Normal nasal mucous membranes and turbinates present Eyes Conjunctivae: conjunctivae normal Sclerae: sclerae normal Pupils: Equal, round and reactive pupils present Neck Neck: Yes no lymphadenopathy and Yes no JVD Thyroid: Thyroid normal Carotids: no bruits Resp Effort & Inspection: normal respiratory effort and not tachypneic Auscultation: no crackles, no rales, no rhonchi and no wheezes Cardio Rate: regular rate Rhythm: regular rhythm Heart sounds: no murmurs and normal S1 and S2 GI Palpation (GI): Soft to palpation, nontender, no hepatomegaly and no splenom egaly Auscultation: normal bowel sounds Skin General skin exam: no rashes or lesions noted and dry skin Neuro General: oriented to person, oriented to place and oriented to time Cranial nerves: Yes Equal, round and reactive pupils present Speech: No Abnormal speech present Gait exam (Neuro): Normal gait present Motor exam (neuro): no tremor noted Extrem Right upper extremity: full ROM Left upper extremity: full ROM Right lower extremity: full ROM; no edema Left lower extremity: full ROM; no edema Psych Mental Status: mental status grossly normal Speech and movement: Normal speech and movement present Affect: normal affect Attitude: cooperative Thought process: Normal thought process present Office Procedures Flu Questionnaire Does the patient have a severe egg allergy?: No Results AMB Hemoglobin A1c AMB Hemoglobin A1c 5.7 % Last Edit by EVELYN Peres on 08/03/24 11:26 Immunizations Fluarix Triv [id number] (PF) 45 mcg (15 mcg x 3)/0.5 mL IM syringe Performing Provider: Festus Lang PA-C [facility] Documented (not given) by: EVELYN Peres on 08/03/24 11:16 Reason Not Given: Received Previously Results Reviewed Results Reviewed: Laboratory Last Values Hgb A1c (Clinic) 5.7 % (4.0-6.0) 08/03/24 11:24 Coding Level of Care Code Est Pt Level 4 (16523) Diagnoses Lumbar spondylosis M47.816 Hyperlipidemia LDL goal <100 E78.5 Type 2 diabetes mellitus without complication, without long-term current use of insulin E11.9 Diabetes mellitus 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 She is in discussions with Neurosurgery and [facility]. She is due to get a lumbar spine injection in his hopeful that this will reduce her pain. For now she will continue with gabapentin, prednisone taper and p.r.n. use of hydrocodone. She reports baclofen has not been helpful thus will trial methocarbamol as an alternative. (2) Hyperlipidemia LDL goal <100: Code(s): E78.5 - Hyperlipidemia, unspecified Category: Medical Plan: Patient's most recent lipid panel showing good control of her total cholesterol and LDL. 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 Goal A1c is to remain below 6.5 (4) Essential hypertension: Code(s): I10 - Essential (primary) hypertension Category: Medical Plan: Patient's blood pressure acceptable today in office. Will continue her on her current dose of losartan with goal blood pressure to remain below 140/90 Orders: Orders AMB Hemoglobin A1c 08/03/24 E11.9 - Type 2 diabetes mellitus without complications Influenza [id number] Immunization 08/03/24 Z23 - Encounter for immunization PT Evaluation and Treatment 08/03/24 M47.816 - Spondylosis without myelopathy or radiculopathy, lumbar region, M51.9 - Unspecified thoracic, thoracolumbar and lumbosacral intervertebral disc disorder Medications: New methocarbamol 500 mg PO BID 60 tabs 3RF 30 days M47.816 - Spondylosis without myelopathy or radiculopathy, lumbar region Changed From ergotamine-caffeine 1-100 mg do not exceed 6 mg per day or 10 mg per wk 1 tab PO Q30M PRN 12 tabs 3RF migraine headache G43.009 - Migraine without aura, not intractable, without sta tus migrainosus To ergotamine-caffeine 1-100 mg do not exceed 6 mg per day or 10 mg per wk 1 tab PO Q30M PRN 30 tabs 3RF migraine headache 30 days G43.009 - Migraine without aura, not intractable, without status migrainosus Refilled hydrocodone-acetaminophen 5-325 mg Partial Fill upon patient request. 1 tab PO BID PRN 8 tabs 0RF pain 4 days G89.29 - Other chronic pain, M25.531 - Pain in right wrist On Hold baclofen Hold Comment: Doctor's Order 10 mg PO BID 90 days 180 tabs 2RF M89.8X1 - Other specified disorders of bone, shoulder Patient Instructions: Goal: A1c to remain below 6.5, blood pressure to remain below 140/90 Barriers: Back issues, adherence to physical activity and healthy eating habits
== END 2024-08-03 11:45 | disposition home or self-care (01) ==
PROVIDERS: PCP Physician Assistant; Visit Provider Physician Assistant
DX: E11.69 Type 2 diabetes mellitus with other specified complication (principal); M47.816 Spondylosis without myelopathy or radiculopathy, lumbar region; E78.5 Hyperlipidemia, unspecified; I10 Essential (primary) hypertension

== ENCOUNTER → 2024-08-03 10:54 | Outpatient (BNVA) | payer MEDICARE, MEDICAID, SELFPAY | PROVIDERS: PCP Physician Assistant; Visit Provider Physician Assistant | DX: M47.816 Spondylosis without myelopathy or radiculopathy, lumbar region (principal); E78.5 Hyperlipidemia, unspecified; E11.9 Type 2 diabetes mellitus without complications; I10 Essential (primary) hypertension; G43.009 Migraine without aura, not intractable, without status migrainosus; Z79.899 Other long term (current) drug therapy | CPT/HCPCS: 83036; 90471; 99212 ==

== ENCOUNTER 2024-08-18 06:22 | Outpatient (REF) | payer MEDICARE, MEDICAID, SELFPAY | END 2024-08-18 06:23 | disposition home or self-care (01) | LOC: CF 06:22 | PROVIDERS: Visit Provider Internal Medicine | DX: Z13.89 Encounter for screening for other disorder (principal) ==

== ENCOUNTER 2024-08-29 11:14 | Outpatient (RCR) | payer MEDICARE, MEDICAID, SELFPAY ==
--- NOTE | 2024-08-29 12:54 | MHC.PT.EP ---
[facility] [place] Office [place] Office [place] [facility] [address] Sowmya Winters [address] [phone] F: [phone] F: [phone] F: [phone] F: [phone] Physical Therapy Plan of Care Date of Evaluation: 08/29/24 Date of Surgery: Diagnosis: THORACOLUMBAR AND LUMBOSACRAL INTERVERTEBRAL DISC DISORDER, SPONDYLOSIS LUMBAR Assessment: 53 YO FEMALE REF TO PT FOR Pt FOR THORACOLUMBAR AND LUMBOSACRAL INTERVERTEBRAL DISC DISORDER, SPONDYLOSIS LUMBAR REGION- EXACERBATION OF HER SXS EARLY AUG 2024. SHE NOTIS BOUTS OF RADICUAL SXS IN HER Lt LATERAL CALF W PROLONGED STANDING. THE Pt HAS (+) SCOLIOSIS, HABITUAL GENU VALGUS, VERY ,LIMITIED HIP ROTATION ATUL, WEAK LUMBOPELVIC/ PROX LEs STRENGTH, AND LS PAIN LIMITING HER ADLs. SHE HAS SIGNIF FINDINGS ON MRI AND IS AWAITING A CORTISONE INJECTION W THE SPINE SURGEON IN 09/2024. SHE IS LIMITES W PROLONGED STANDING/WALKING/SITTING/ SHOWERING, SLEEPING SUPINE, AND FITNESS WALKING. SHE ALOS NOTES INCR PAIN W HOUSECHORES. THE Pt HAS HAD (+) RELIEF OF HER SXS W PRIOR PT. SHE IS A GOOD CANDIDATE FOR SKILLED PT TO ADDRESS THE ABOVE FINDINGS AND CURRENT IMPAIRMENTS TO REDUCE FURTHER STRESS ON HER LB REGION, REDUCE RISK OF FURTHER INJURY-> RECOMMEND PT 2 x WK x 4 WEEKS . Frequency and Duration: The patient will be seen 2 x WK x 4 WKS Short Term Goals: * INITIATE HEP; ADDRESS LUMBOPELVIC STAB *Pt WILL BE INDEP W POSTURAL CORRECTION W VARIED ADL SIMULATION TO REDUCE LB STRESS *DECREASE LBP TO 3-4/10 W GEN ADLs Clinical Instructor Goals: *Pt INDEP W HEP AND SELF-SX MGMT TECHN *Pt WILL RESUME REG ADLs AND FITNESS WALKING EVIDENT W IMPROVED OSWESTRY SCORE ( AT EVAL, 29/50) * Pt DEMON IMPROVED FUNCTIONAL SQUAT MECHANICS [ End ] Treatment Plan: Modalities to reduce pain, spasms and effusion. Manual therapy to restore motion and function. Therapeutic exercise to improve strength and flexibility. Neuromuscular re-education for posture and balance. Therapeutic activities to return to functional activities of daily living. Electronically signed by: DASH RUANO PT Please sign and return to therapist. Thank you for your referral.
--- NOTE | 2024-09-22 14:09 | MHC.PT.DC ---
[facility] [place] [facility] [place] [facility] [place] [address] Sowmya Winters 140 [facility] [phone] F: [phone] F: [phone] F: [phone] F: [phone] Physical Therapy Discharge Report Diagnosis: THORACOLUMBAR AND LUMBOSACRAL INTERVERTEBRAL DISC DISORDER, SPONDYLOSIS LUMBAR Date of Surgery: Date of Evaluation: 08/29/24 Date of Discharge: 09/22/24 Treatments to Date: 1 Cancellations to Date: 0 No Shows to Date: 0 Discharge Status: Improved Function Patient Elected to Stop Discharge Summary: AKASH ATTENDED HER PT EVAL FOR THORACOLUMBAR / LUMBOSACRAL PAIN ON 08/29/24. AFTER HER EVALUATION, HER INSURANCE REQUIRED APPROVAL FOR ADDITIONAL PT VISITS .. ONCE OBTAINED, THE Pt WAS CONTACTED AND SHE NOTED SHE RESUMED HER HEP DISCUSSED AT EVAL AND WAS FEELING MUCH BETTER- SHE DID NOT FEEL SHE NEEDED ANY FURTHER PT AT THIS TIME. THE Pt IS THEREFORE D/C FROM PT AFTER HER PT EVAL. Electronically signed by: DASH RUANO,PT Please sign and return to therapist. Thank you for your referral.
== END 2024-09-22 14:10 | disposition home or self-care (01) ==
LOC: HO.PT 11:14
PROVIDERS: PCP Physician Assistant; Visit Provider Physician Assistant
DX: M51.9 Unspecified thoracic, thoracolumbar and lumbosacral intervertebral disc disorder (principal); M47.816 Spondylosis without myelopathy or radiculopathy, lumbar region
CPT/HCPCS: 97110; 97163

== ENCOUNTER 2024-09-22 06:13 | Outpatient (REF) | payer MEDICARE, MEDICAID, SELFPAY ==
--- NOTE | ~2024-09-22 | FL_ITS ---
EXAMINATION: FLUORO GUIDANCE IN TREATMENT ROOM CLINICAL INFORMATION: Spinal stenosis, lumbar region with neurogenic claudication. COMPARISON: None available. TECHNIQUE: Fluoroscopy supervised by: Dr. Hai Mcallister. Fluoroscopy time: 0.1 minutes. Cumulative Dose: 4.43 mGy. DAP: 0.0275 mGy-m2 (milligray-meter squared). Images: 1. FINDINGS: A single coned image demonstrates a needle posteriorly on the spine at the right. There appears to be contrast in the epidural space. The level cannot be ascertained from these radiographs. FL/FL guidance in treatment room IMPRESSION: Fluoroscopy during procedure. Please see procedure report for additional information. Electronically signed by: Silverio Amato MD 11/10/2024 07:38 AM PIPPA
--- OUTSIDE RECORDS SUMMARY | 2024-09-22 06:16 | XMS_ITS | Patient Health Record ---
Author Organization [facility] Address [address] [place], [place] [id number] Care Team Providers Care Terrazzo Worker Apprentice Name Role Phone Reymundo Bazzi Primary Care Provider Unavailab le Reason For Referral No Information Medications Medication SIG (Take, Route, Fr equency, Duration) Notes Start Date End Date Status traZODone 100mg 2 tabs HS 10/12/2023 Act lorena acetaminophen 325 mg 2 tab(s) orally Q4H for 3 day(s) 08/09/2009 Active Fioricet 10/12/2023 Active PriLOSEC OTC 10/12/2023 Active Immunizations Vaccine Route Administration Date Status Comme nts Influenza Unknown 07/31/2009 Administered PPD planted Unknown 07/31/2009 Administered Influenza Unknown 07/31/2009 Administered PPD planted Unknown 08/07/2009 Administered PPD negative Unknown 08/10/2009 Administered Problems Problem Type SNOMED Code ICD Code Onset Dates Problem Status W/U Status Risk Notes Problem Tobacco use (900189483) Tobacco use disorder (305.1) Active confirmed Plan Of Treatment No Information Insurance Providers Payer Name Payer Address Payer Phone Subscriber Number Group Number Insured Name Patient Relationship to Insured Coverage Start Date Coverage End Date [place] [address] [place] [address] [id number] Vickie Olivares Self - patient is the insured Medical (General) History Medical History History ICD Code pt. reports asthma, migraines, cholester emia, GERD, insomnia Hospitalization History Reason Date(Month/Year) MELANY infection in skin-3 days 2008
== END 2024-09-22 06:14 | disposition home or self-care (01) ==
LOC: CF 06:13
PROVIDERS: Visit Provider Internal Medicine
DX: M48.062 Spinal stenosis, lumbar region with neurogenic claudication (principal); M54.16 Radiculopathy, lumbar region
CPT/HCPCS: 62323; J2003; J3301; Q9967

== ENCOUNTER 2024-09-22 11:00 | Outpatient (AMB) | payer MEDICARE, MEDICAID, SELFPAY ==
[2024-09-22 11:05] VITALS: BP 133/75; PULSE 77; O2SAT 98
--- NOTE | 2024-09-22 11:05 | MHC.OFFVIS ---
Vital Signs 09/22/24 11:05 09/22/24 11:26 BP 133/75 126/75 Blood Pressure Location Rt brachial Rt brachial Position Sitting Sitting Pulse 77 81 Pulse Source Pulse Oximeter Pulse Oximeter Pulse Oximetry (%) 98 96 Oxygen Delivery Method Room Air Room Air Intake Visit Reasons: Right L2-L3 parasagittal interlaminar COLEMAN Allergies morphine [Morphine] Allergy (Intermediate, Verified 08/03/24 11:26) VOMITING oxycodone [Percocet] Allergy (Unknown, Verified 08/03/24 11:26) Vomiting methocarbamol Adverse Reaction (Intermediate, Verified 08/24/24 15:42) GI upset HPI HPI Right L2-L3 parasagittal interlaminar COLEMAN: Details: Patient presents for scheduled procedure. Denies any recent cough, cold, infection, fever or other significant changes in medical history since last office visit. [facility] Medical History Hyperuricemia Asthma Obese Osteoarthritis Trigger finger Carpal tunnel syndrome Hyperlipidemia LDL goal <100 Essential hypertension Hyperlipidemia Cellulitis, umbilical Surgical History History of esophagogastroduodenoscopy (EGD) Hx of colonoscopy History of laparoscopic appendectomy History of foot surgery History of carpal tunnel release H/O: hysterectomy Family History Father Diabetes Hypertension Stroke Heart attack, Onset Age: 50 Mother Multiple sclerosis Brother In good health Son In good health Son In good health Other Patient denies medical problems Social History Household Members: Spouse and Other Housing: Apartment Alcohol intake: current Alcohol intake frequency: a few times a month Alcohol type: beer Patient Tobacco Use Status: Current everyday Tobacco user Tobacco use type: Cigarette Cigarette Packs Per Day: 0.33 Cigarettes Per Day: 6.6 Years Smoked: 43-started at age 8 e-Cigarette/Vaping Use: Never Used Second Hand Smoke Exposure: No service: No Current occupational status: disabled Cognitive needs: No Hearing needs: No Vision needs: Yes (glasses) Physical Exam Vital Signs: Last Vital Signs Pulse 81 09/22/24 11:26 BP 126/75 12/12/24 11:26 Pulse Ox 96 09/22/24 11:26 Oxygen Delivery Method Room Air 09/22/24 11:26 Office Procedures AMB Joint Injection/Aspiration Joint Injection/Aspiration Details: Interlaminar epidural steroid injection, L2-3, right parasaggital After obtaining written consent, pre-procedure blood pressure and heart rate were stable and recorded in the nursing record. The patient was placed in the prone position. The lumbar area was widely prepped with chloraprep and draped in sterile fashion. Fluoroscopic guidance was used to identify the desired interlaminar space and for needle placement. Subcutaneous 0.5% lidocaine was used to anesthetize the skin overlying the target. A 20-gauge Olvera needle was advanced to the epidural space using loss of resistance to contrast technique under fluoroscopic AP and contralateral oblique views. There was no evidence of heme or CSF and no paresthesias were elicited with needle placement. Confirmation of epidural needle placement was performed with 1cc of omnipaque 180. Next 3 ml 0.5% lidocaine mixed with 80 mg triamcinilone was administered epidurally with no pain elicited on injection. The needle tract tubing was then cleared with 1 ml of 0.5% lidocaine. The needle was removed, skin cleansed and a sterile bandage was applied. The patient tolerated the procedure well and no complications were encountered. Following the procedure the patient's vital signs were stable. The patient was discharged home in good condition with post-procedural instructions. Time Out: Immediately prior to the procedure, the following was verbally confirmed that there is a signed consent form and that the correct patient, planned procedure, site and side are consistent with documentation and that necessary equipment and/or blood products are available prior to the start of the case. Complications: none EBL: <2 cc Coding 41820 - Caudal/Lumbar Epidural/Interlaminar with fluoroscopy Procedure code (CPT) selection complete Assessment & Plan Assessment & Plan (1) Lumbar radicular pain: Code(s): M54.16 - Radiculopathy, lumbar region Category: Medical Plan Patient is status post right parasagittal interlaminar L2-3 COLEMAN. Patient tolerated procedure well and was discharged home in stable condition with discharge instructions. All questions were answered. We will follow-up via telephone or in clinic to assess response to therapy. A follow-up appointment was made during today's visit. Orders: Orders FL guidance in treatment room Today M48.062 - Spinal stenosis, lumbar region with neurogenic claudication Coding Level of Care Code Procedure Only Diagnoses Lumbar radicular pain M54.16 CPT Codes Coding - Joint 11: 63003 - Caudal/Lumbar Epidural/Interlaminar with fluoroscopy ([id number])
[2024-09-22 11:26] VITALS: BP 126/75; PULSE 81; O2SAT 96
== END 2024-09-22 11:24 | disposition home or self-care (01) ==
LOC: HO.PMCPRC 11:00
PROVIDERS: PCP Physician Assistant; Visit Provider Internal Medicine
DX: M54.16 Radiculopathy, lumbar region (principal)
CPT/HCPCS: 62323

== ENCOUNTER 2024-10-26 10:48 | Outpatient (AMB) | payer MEDICARE, MEDICAID, SELFPAY ==
[2024-10-26 10:57] VITALS: BP 128/73; PULSE 102; O2SAT 97; BMI 37.2
--- NOTE | 2024-10-26 10:57 | MHC.OFFVIS ---
Vital Signs 10/26/24 10:57 Height 5 ft 3 in Weight 210 lb BMI 37.2 BP 128/73 Blood Pressure Location Rt brachial Position Sitting Pulse 102 H Pulse Source Pulse Oximeter Pulse Oximetry (%) 97 Oxygen Delivery Method Room Air Intake Visit Reasons: s/p right L2-L3 parasagittal interlaminar [employer] Required: No Allergies morphine [Morphine] Allergy (Intermediate, Verified 10/26/24 10:57) VOMITING oxycodone [Percocet] Allergy (Unknown, Verified 10/26/24 10:57) Vomiting methocarbamol Adverse Reaction (Intermediate, Verified 10/26/24 10:57) GI upset Medication List - Last Reconciled 10/26/24 by Jaida Lai, [employer] acetaminophen ER 650 mg PO Q12H PRN 10 days albuterol sulfate 90 mcg/actuation (Ventolin HFA) 1 puff inhalation QID 30 days allopurinol 100 mg PO DAILY atorvastatin 40 mg PO DAILY 90 days baclofen 10 mg PO BID 90 days blood sugar diagnostic (Open[employer] Verio test strips) 1 strip miscellaneous DAILY clonidine HCl 0.3 mg PO BEDTIME cyanocobalamin (vitamin B-12) (Vitamin B-12) 1,000 mcg PO DAILY diclofenac sodium 75 mg PO BID 90 days ergotamine-caffeine 1-100 mg 1 tab PO Q30M PRN 30 days gabapentin 300 mg PO TID hydrocodone-acetaminophen 5-325 mg 1 tab PO BID PRN 4 days hydroxyzine HCl 10 mg PO BEDTIME 30 days losartan 50 mg PO DAILY magnesium oxide 250 mg PO DAILY 90 days methylprednisolone 4 mg PO DAILY montelukast 10 mg PO DAILY 90 days multivitamin 1 tab PO DAILY nicotine 1 patch transdermal DAILY nicotine 1 patch transdermal Q24H pantoprazole 40 mg PO DAILY tizanidine 2 mg PO Q8H 30 days trazodone 400 mg (4 x 100 mg) PO BEDTIME 30 days HPI Comments Details: Patient presents back to the office today for right lower back pain with radiation down the right leg Reports 1 month ago she had epidural steroid injection for pain down the left leg which provided 100% pain relief States one-week ago developed sudden pain on the right leg, posteriorly to the ankle. Awoke with this pain. She denies inciting injury, fall, trauma Denies red flag symptoms including new loss of bowel, bladder or saddle anesthesia Patient does have gabapentin at home but she forgot to take it. She uses only as needed. She tried Aleve with no improvement of her pain. Pain today is rated as a 9/10 Prior: Vickie is a very pleasant 53-year-old female who presented to the office today for evaluation management of her left lower back pain Endorses midline lumbar back pain without radiation. She has been suffering with this for at least 6 years. Her most concerning and bothersome symptom is left lower extremity numbness that starts medial thigh down to include the left foot. She says this started about 2 years ago, it had improved for about a year and a half. Approximately 5 months ago it returned and has been constant every day. She states the numbness happens with walking and improves with rest. She denies any symptoms to the right lower extremity. She reports when she is shopping she finds relief with leaning on the shopping cart. Patient goes to the chiropractor every 2 weeks with some improvement of her axial back pain. She does home exercise program. She has never been to acupuncture or massage. She has never had injections in her back. Patient has taken Tylenol, nonsteroidal anti-inflammatory medications, muscle relaxers and prescription opioid medications without resolution of her pain. She denies red flag symptoms including new loss of bowel, bladder or saddle anesthesia Pain today is rated as 6/10, constant and worse during the day. In terms of muscle damage condition is described as shooting, hot, burning. Pain is negatively impacting patient's enjoyment of life, general activity, normal work, recreational activities and walking. Patient states she is concerned that the numbness in the foot will cause her to step on something without realizing it and roll her ankle or break her leg. Patient had recent MRI and EMG, results as per below. [facility] Medical History Hyperuricemia Asthma Obese Osteoarthritis Trigger finger Carpal tunnel syndrome Hyperlipidemia LDL goal <100 Essential hypertension Hyperlipidemia Cellulitis, umbilical Surgical History History of esophagogastroduodenoscopy (EGD) Hx of colonoscopy History of laparoscopic appendectomy History of foot surgery History of carpal tunnel release H/O: hysterectomy Family History Father Diabetes Hypertension Stroke Heart attack, Onset Age: 50 Mother Multiple sclerosis Brother In good health Son In good health Son In good health Other Patient denies medical problems Social History Household Members: Spouse and Other Housing: Apartment Alcohol intake: current Alcohol intake frequency: a few times a month Alcohol type: beer Patient Tobacco Use Status: Current everyday Tobacco user Tobacco use type: Cigarette Cigarette Packs Per Day: 0.33 Cigarettes Per Day: 6.6 Years Smoked: 43-started at age 8 e-Cigarette/Vaping Use: Never Used Second Hand Smoke Exposure: No service: No Current occupational status: disabled Cognitive needs: No Hearing needs: No Vision needs: Yes (glasses) Review of Systems Const All systems reviewed & are unremarkable except as noted in HPI and below Physical Exam Vital Signs: Last Vital Signs Pulse 102 H 10/26/24 10:57 BP 128/73 10/26/24 10:57 Pulse Ox 97 10/26/24 10:57 Oxygen Delivery Method Room Air 10/26/24 10:57 BMI result Body Mass Index 37.2 General: awake, alert, oriented. Answers questions appropriately. Fully engaged in examination. Skin: warm, dry, intact HEENT: Normocephalic. Hearing intact. Cardiac: External chest normal in appearance. Respiratory: No cough, audible wheezing or stridor. Abdomen: without gross distension. MS: No obvious swelling or deformities. Able to stand on bilateral tiptoes and bilateral heels.? Able to transition from sit to stand unassisted. Ambulates with bilaterally normal heel strike and toe off SLR negative bilaterally Negative clonus, negative footdrop Bilateral lower extremity strength 5/5 Neurological: Oriented to person, place, time and situation. Thought process intact. No gait abnormalities appreciated. Psychiatric: Appropriate mood and affect. Good judgment and insight. Results Reviewed Results Reviewed: 01/01/24 MR/MR lumbar spine wo con CORONAL ALIGNMENT: There is mid lumbar dextroscoliosis, convex to the right at L3, similar to prior x-rays. SAGITTAL ALIGNMENT: Mild degrees of retrolisthesis are noted at L1-L2, L2-L3 and L3-L4, similar to previous x-rays. Trace anterolisthesis at L4-L5 is unchanged. Lordotic curvature is centered at L3-L4. LUMBOSACRAL JUNCTION: Normal. Hypoplastic ribs at T12. VERTEBRAL BODIES: Mild chronic loss of height of the L4, L3, L2 and L1 vertebral bodies with mild chronic anterior wedging of T11 and T12. No acute or nonhealed fractures. DISC SPACES AND ENDPLATES: Advanced multilevel degenerative changes, with the severe disc space height loss at L3-L4, [id number]-kl-[id number] degrees of disc space height loss at L4-L5 and L5-S1 and moderate disc space height loss at L1-L2 and L2-L3. There is Schmorl's nodes at the levels between T12-L1 and L3-L4 inclusive with multilevel disc desiccation and spondylosis. SPINAL CANAL: Short pedicles are suspected with developmental lumbar spinal canal stenosis. BONE MARROW: Mixed type I and type II degenerative marrow signal changes noted along the endplates at L3-L4. No focally suspicious marrow replacing process or bone marrow edema. CONUS MEDULLARIS: Terminates at L2. Morphology and signal is normal. INTRADURAL NERVE ROOTS: Multilevel crowding of the intradural nerve roots consistent with multilevel spinal canal stenosis. L5-S1: Mild disc bulging, severe right-sided and fjwyzdcv-sn-dlypwt left-sided facet joint arthrosis with ligamentum flavum thickening and a right-sided facet joint effusion. Moderate central spinal canal stenosis is noted with mild left and moderate right subarticular recess stenosis with encroachment on the right S1 nerve root. Moderate left-sided and severe right-sided neural foraminal stenosis, with L5 nerve root impingement, right more than left. L4-L5: Diffuse disc bulging and broad-based right posterolateral disc protrusion with flattening of the dural sac with severe right and gsqupofy-xl-hgqasd left-sided facet joint arthrosis with ligament of flavum thickening and severe central spinal canal stenosis. There is severe bilateral subarticular recess stenosis likely impinging on the traversing L5 nerve roots bilaterally. There is ystt-kz-uysoocqz left and vkgkphmy-zt-rigvoi right-sided neural foraminal stenosis. Disc herniation abuts the extra foraminal right L4 nerve root. L3-L4: There is concentric disc bulging asymmetric to the right and left posterolateral disc osteophyte complex, with moderate bilateral facet joint arthrosis and ligamentum flavum thickening. There is severe central spinal canal stenosis with marked crowding of the intradural nerve roots with severe bilateral lateral recess stenosis likely impinging on the traversing L4 nerve roots. There is sxckytcb-il-lyxatb left-sided and moderate right-sided neural foraminal stenosis, with left L3 nerve root impingement. Disc bulging also abuts the extra foraminal right L3 nerve root. L2-L3: Diffuse disc bulging is noted with a left-sided foraminal/extraforaminal extruded disc herniation with mild cephalad migration. Marked flattening of the ventral dural sac is noted with ligamentum flavum thickening and moderate bilateral facet of atrophic changes. There is tmvxapcn-nc-ttqhdq central spinal canal stenosis with marked crowding of the intradural nerve roots and there is marked crowding of the subarticular zones bilaterally likely encroaching on the traversing L3 nerve roots bilaterally. There is moderate left and mild right-sided foraminal stenosis. Left lateral disc herniation abuts the extra foraminal left L2 nerve root and disc bulging abuts the extra foraminal right L2 nerve root. L1-L2: Concentric disc bulging is noted with flattening of the ventral dural sac with mild facet joint arthrosis and mild central canal stenosis. Mild narrowing of the left subarticular recess is noted with mild left-sided neural foraminal stenosis. T12-L1: Central to left paramedian extruded disc herniation noted with mild cephalad and caudal migration with left-sided indentation of the ventral thecal sac and mild narrowing of the left subarticular zone with mild central canal narrowing without significant neural foraminal stenosis. Small right paramedian extruded disc herniation with mild cephalad migration noted at T10-T11 without cord impingement. PARAVERTEBRAL AND INCLUDED EXTRASPINAL SOFT TISSUES: There is posterior paraspinal and psoas muscle sarcopenia. Otherwise unremarkable. IMPRESSION: 1. Mid lumbar dextroscoliosis, convex to the right at L3 with multilevel subluxations as described above. 2. Severe multilevel DDD and spondylosis with multilevel disc bulging, disc herniations and disc osteophyte complexes as described above superimposed on developmental lumbar spinal canal stenosis. 3. Multilevel bilateral facet joint arthrosis and ligamentum flavum thickening as detailed by level above. 4. Severe spinal canal stenosis at L4-L5 and L3-L4, cvgqecov-ro-vnvmbc spinal canal stenosis at L2-L3 with mild spinal canal stenosis at L1-L2 and T12-L1. 5. Significant multilevel bilateral neural foraminal stenosis, with multilevel exiting nerve root impingement as detailed by level above. 6. Mild chronic anterior wedging of the T11, T12 and L1 vertebral bodies with no evidence for acute or nonhealed fractures. 10/30/23 EMG IMPRESSION: 1. This is an abnormal study. 2. Cannot rule out a chronic L5-S1 radiculopathy. 3. Sural SNAPs were preserved. Therefore peripheral neuropathy is less likely. Assessment & Plan Assessment & Plan (1) Lumbar radicular pain: Code(s): M54.16 - Radiculopathy, lumbar region Category: Medical Plan Patient presents the office today for one-week right lower back pain with radiation down right leg. Order placed for PT eval and treat X-ray ordered for evaluation Patient advised to take her gabapentin 3 times daily for next week, then she may return to as needed if pain is improved Continue with diclofenac as prescribed by PCP Continue with muscle relaxers as prescribed by PCP All questions and concerns were answered, patient agrees with plan. Follow up after PT, sooner if needed Orders: Orders PT Evaluation and Treatment Today M54.16 - Radiculopathy, lumbar region XR lumbar spine 4V min Today M54.16 - Radiculopathy, lumbar region Coding Level of Care Code Est Pt Level 3 (49575) Complex EM visit Add On G2211 Diagnoses Lumbar radicular pain M54.16
== END 2024-10-26 11:22 | disposition home or self-care (01) ==
PROVIDERS: PCP Physician Assistant; Visit Provider Registered Nurse Emergency
DX: M54.16 Radiculopathy, lumbar region (principal)
CPT/HCPCS: 99213; G2211

== ENCOUNTER → 2024-10-26 10:48 | Outpatient (BNVA) | payer MEDICARE, MEDICAID, SELFPAY | PROVIDERS: PCP Physician Assistant; Visit Provider Registered Nurse Emergency | DX: M54.16 Radiculopathy, lumbar region (principal) | CPT/HCPCS: 99212 ==

== ENCOUNTER 2024-11-05 10:34 | Outpatient (REF) | payer MEDICARE, MEDICAID, SELFPAY | END 2024-11-05 10:35 | disposition home or self-care (01) | LOC: HO.XRAY 10:34 | PROVIDERS: PCP Physician Assistant; Visit Provider Registered Nurse Emergency | DX: M54.16 Radiculopathy, lumbar region (principal) | CPT/HCPCS: 72110 ==

== ENCOUNTER → 2024-11-05 10:51 | Outpatient (BNV) | payer MEDICARE, MEDICAID, SELFPAY | PROVIDERS: PCP Physician Assistant; Visit Provider Radiology Diagnostic Radiology | DX: M47.895 Other spondylosis, thoracolumbar region (principal); M41.86 Other forms of scoliosis, lumbar region | CPT/HCPCS: 72110 ==

== ENCOUNTER 2024-11-21 13:37 | Outpatient (AMB) | payer OTHER, MEDICARE, MEDICAID, SELFPAY ==
[2024-11-21 14:22] VITALS: BP 114/68; PULSE 95; TEMP 36.2; O2SAT 95; BMI 38.0
--- NOTE | 2024-11-21 14:22 | MHC.PC.OV ---
Vital Signs 11/21/24 14:22 Height 5 ft 3 in Weight 214 lb 6 oz BMI 38.0 BP 114/68 Blood Pressure Location Lt brachial Position Sitting Pulse 95 Pulse Source Pulse Oximeter Temp 97.1 F Temp Source Temporal Artery Scan Pulse Oximetry (%) 95 Oxygen Delivery Method Room Air Intake Visit Reasons: Buzzing in Ears Disability Services Coordinator Required: No Accompanied by: Self / Same As Patient Allergies morphine [Morphine] Allergy (Intermediate, Verified 11/21/24 14:23) VOMITING oxycodone [Percocet] Allergy (Unknown, Verified 11/21/24 14:23) Vomiting methocarbamol Adverse Reaction (Intermediate, Verified 11/21/24 14:23) GI upset Tobacco use date assessed: 11/21/24 Dental Screening Dental Screen Date: 11/21/24 Did you have a dental visit in the last 12 months?: Yes Did you have a dental problem in the last 6 months where you did not have access to dental care?: No Was dental information given to patient?: Patient has dentist HPI Buzzing in Ears HPI Details The patient is a 53-year-old female presenting with complaints of tinnitus, sciatica-related pain, and neuropathic symptoms in the right leg. The tinnitus has been occurring for several months, primarily manifesting as a buzzing sound particularly noticeable at night when the patient is lying down for bed. The patient is on diclofenac for inflammation, raising the suspicion of medication side effects. She also reports longstanding lumbar spondylosis and scoliosis, discovered through imaging approximately three weeks prior, with no updates received from pain management. The patient experiences pain that begins beneath the right gluteal area and extends down to the knee, accompanied by weakness and occasional knee buckling. Initial treatment such as physical therapy was not pursued due to intensified pain post-treatment. She has had prior lumbar injections in September without notable relief. Additionally, the patient describes numbness starting from the foot and moving upwards in the right leg, raising concerns for polyneuropathy possibly related to nerve compression in the lower back. She has osteoarthritis overlays affecting her quality of life, worsened by snowy weather conditions. Her diabetic control is regularly monitored, with the most recent HbA1c recorded at 5.7%. [facility] Medical History Hyperuricemia Asthma Obese Osteoarthritis Trigger finger Carpal tunnel syndrome Hyperlipidemia LDL goal <100 Essential hypertension Hyperlipidemia Cellulitis, umbilical Surgical History History of esophagogastroduodenoscopy (EGD) Hx of colonoscopy History of laparoscopic appendectomy History of foot surgery History of carpal tunnel release H/O: hysterectomy Family History Father Diabetes Hypertension Stroke Heart attack, Onset Age: 50 Mother Multiple sclerosis Brother In good health Son In good health Son In good health Other Patient denies medical problems Social History Household Members: Spouse and Other Housing: Apartment Alcohol intake: current Alcohol intake frequency: a few times a month Alcohol type: beer Patient Tobacco Use Status: Current everyday Tobacco user Tobacco use type: Cigarette Cigarette Packs Per Day: 0.33 Cigarettes Per Day: 6.6 Years Smoked: 43-started at age 8 Packs Per Year: 0 Packs per year/per ci.00 e-Cigarette/Vaping Use: Never Used Second Hand Smoke Exposure: No service: No Current occupational status: disabled Cognitive needs: No Hearing needs: No Vision needs: Yes (glasses) Questionnaire PHQ-9 Over the last 2 weeks, how often have you been bothered by any of the following problems? 1. Little interest or pleasure in doing things: not at all 2. Feeling down, depressed, or hopeless: not at all 3. Trouble falling or staying asleep, or sleeping too much: not at all 4. Feeling tired or having little energy: not at all 5. Poor appetite or overeating: not at all 6. Feeling bad about yourself - or that you are a failure or have let yourself or your family down: not at all 7. Trouble concentrating on things, such as reading the newspaper or watching television: not at all 8. Moving or speaking so slowly that other people could have noticed. Or the opposite - being so fidgety or restless that you have been moving around a lot more than usual: not at all 9. Thoughts that you would be better off or of hurting yourself in some way: not at all Total score: 0 Depression Screening Interpretation: Negative Depression Screening Done: Yes 01564 - PHQ-9 Billing: Yes Source: Developed by Drs. Eduard Sherwood, Arlen Valdes, Rad Yao and colleagues, with an educational enrique from [employer]. Thrive Questionnaire Date Thrive assessed: 11/21/24 I am a: Patient What is your living situation today?: I have a steady place to live Within the past 12 months, did the food you bought not last and you didn't have the money to get more?: Never true Within the past 12 months, did you worry whether your food would run out before you got money to buy more?: Never true Do you have trouble paying for medicines?: No Do you have trouble getting transportation to medical appointments?: No Do you have trouble paying your heating and electricity bill?: No Do you have trouble taking care of your child, family member or friend?: No Do you have trouble with day-to-day activities such as bathing, preparing meals, shopping, managing finances, etc.?: No Are you currently unemployed and looking for a job?: No Are you interested in more education?: No Please select the resources that you would like help with: None Currently or been in a relationship where the following occur: No concerns reported THRIVE Score: 0 AUDIT C Alcohol Use Questionnaire (AUDIT-C) 1. How often do you have a drink containing alcohol?: Monthly or less 2. How many drinks containing alcohol do you have on a typical day when you are drinking?: 1 or 2 3. How often do you have six or more drinks on one occasion?: Never Total Score: 1 SUSANA-7 AMB Questionnaire SUSANA-7 Date SUSANA - 7 assessed: 11/21/24 Feeling nervous, anxious, or on edge: 0 = Not at all Not being able to stop or control worryin = Not at all Worrying too much about different things: 0 = Not at all Trouble relaxin = Not at all Being so restless that it is hard to sit still: 0 = Not at all Becoming easily annoyed or irritable: 0 = Not at all Feeling afraid as if something awful might happen: 0 = Not at all Total SUSANA-7 score (0-4 normal; 5-9 mild; 10-14 moderate; 15-21 severe): 0 Source: Developed by Drs. Eduard Sherwood, Arlen Valdes, Rad Yao and colleagues, with an educational enrique from [employer]. SUSANA-7 Assessment Billing SUSANA-7 Assessment Tool: SUSANA-7 Assessment 82002 Review of Systems Const Denies headache(s) Eyes Denies loss of vision ENT Denies vertigo, Denies dizziness, Denies headache(s) and Denies sore throat Card Denies chest pain, Denies leg edema and Denies lightheadedness Resp Denies cough, Denies hemoptysis and Denies wheezing GI Denies abdominal pain, Denies melena, Denies constipation, Denies diarrhea and Denies vomiting Denies urinary frequency, Denies dysuria and Denies urinary urgency Musc Denies arthralgias, Denies joint swelling, Denies numbness and Denies tingling Neuro Denies Abnormal speech present, Denies behavioral changes, Denies vertigo, Denies dizziness, Denies headache(s), Denies loss of vision, Denies memory loss, Denies numbness and Denies tingling Psych Denies anxiety, Denies behavioral changes, Denies depression, Denies memory loss and Denies panic attacks Otis/Lymph Denies easy bleeding and Denies easy bruising Aller/Immun Denies wheezing Physical exam (Primary Care) Vital Signs: Last Vital Signs Temp 97.1 F 11/21/24 14:22 Pulse 95 11/21/24 14:22 BP 114/68 11/21/24 14:22 Pulse Ox 95 11/21/24 14:22 Oxygen Delivery Method Room Air 11/21/24 14:22 BMI result Body Mass Index 38.0 Tobacco/Smoking Status: Tobacco use Status Tobacco use date assessed 11/21/24 11/21/24 14:29 Patient Tobacco Use Status Current everyday Tobacco 11/21/24 14:22 Tobacco use type Cigarette 11/21/24 14:22 e-Cigarette/Vaping Use Never Used 11/21/24 14:22 PHQ-9: PHQ-9 Score PHQ-9: Total score 0 11/21/24 15:07 Depression Screening Interpretation: Negative Thrive Assessment: Date of Thrive Assessment Date Thrive assessed 11/21/24 11/21/24 14:29 Currently or been in a relationship where the following occur: No concerns reported Const General: healthy appearing, no acute distress, alert and awake Nutritional Appearance: well nourished Orientation/consciousness: oriented to person, oriented to place and oriented to time HENMT Ears: TM's normal bilaterally General nose exam: Normal nasal mucous membranes and turbinates present Eyes Conjunctivae: conjunctivae normal Sclerae: sclerae normal Pupils: Equal, round and reactive pupils present Neck Neck: Yes no lymphadenopathy and Yes no JVD Thyroid: Thyroid normal Carotids: no bruits Resp Effort & Inspection: normal respiratory effort and not tachypneic Auscultation: no crackles, no rales, no rhonchi and no wheezes Cardio Rate: regular rate Rhythm: regular rhythm Heart sounds: no murmurs and normal S1 and S2 GI Palpation (GI): Soft to palpation, nontender, no hepatomegaly and no splenomegaly Auscultation: normal bowel sounds Skin General skin exam: no rashes or lesions noted and dry skin Neuro General: oriented to person, oriented to place and oriented to time Cranial nerves: Yes Equal, round and reactive pupils present Speech: No Abnormal speech present Gait exam (Neuro): Normal gait present Motor exam (neuro): no tremor noted Extrem Right upper extremity: full ROM Left upper extremity: full ROM Right lower extremity: full ROM; no edema Left lower extremity: full ROM; no edema Psych Mental Status: mental status grossly normal Speech and movement: Normal speech and movement present Affect: normal affect Attitude: cooperative Thought process: Normal thought process present Results AMB Hemoglobin A1c AMB Hemoglobin A1c 5.7 % Last Edit by EVELYN Peres on 11/21/24 14:53 Results Reviewed Results Reviewed: Laboratory Last Values Hgb A1c (Clinic) 5.7 % (4.0-6.0) 11/21/24 14:29 Coding Level of Care Code Est Pt Level 4 (85810) Diagnoses Recurrent right knee instability M23.51 Buzzing in both ears H93.13 Lumbar spondylosis M47.816 Additional Codes SUSANA-7 Assessment Billing - SUSANA-7 Assessment Tool: SUSANA-7 Assessment 96888 ([id number]) PHQ-9 - 29304 - PHQ-9 Billing: Yes ([id number]) Assessment & Plan Assessment & Plan (1) Recurrent right knee instability: Code(s): M23.51 - Chronic instability of knee, right knee Category: Medical Plan: Patient reports posterior right knee pain and weakness. She does report her right knee gives out from time to time. Unclear if this is a sciatic nerve/lumbar issue or posterior knee tendon issue. He is not interested in doing physical therapy. Will get x-ray of the right knee. (2) Buzzing in both ears: Code(s): H93.13 - Tinnitus, bilateral Category: Medical Plan: The patient will be referred for a full audiological evaluation to assess tinnitus. - Consideration given to reducing diclofenac to assess symptoms' correlation with medication. (3) Lumbar spondylosis: Code(s): M47.816 - Spondylosis without myelopathy or radiculopathy, lumbar region Category: Medical Plan: Patient's most recent x-ray showing lumbar spondylosis and pretty advanced scoliosis. She has been having unilateral neuropathic pain and numbness the right lower extremity.. Has had MRI showing multilevel disc herniations. She is followed by [facility] and has gotten injections which has offered some limited pain relief. She uses gabapentin though feels it is not as effective as it once was. Will increase her gabapentin to 400 t.i.d. for better pain relief. Orders: Orders AMB Hemoglobin A1c 11/21/24 E11.9 - Type 2 diabetes mellitus without complications XR knee RT 4V 11/21/24 M23.51 - Chronic instability of knee, right knee Referrals Speech and Hearing Referral H93.13 - Tinnitus, bilateral Medications: New gabapentin 400 mg PO TID 90 caps 3RF 30 days M48.062 - Spinal stenosis, lumbar region with neurogenic claudication Discontinued gabapentin Discontinued Reason: Doctor's Order 300 mg PO TID 90 caps 11RF
== END 2024-11-21 15:22 | disposition home or self-care (01) ==
PROVIDERS: PCP Physician Assistant; Visit Provider Physician Assistant
DX: M23.51 Chronic instability of knee, right knee (principal); H93.13 Tinnitus, bilateral; M47.816 Spondylosis without myelopathy or radiculopathy, lumbar region

== ENCOUNTER 2024-11-21 13:37 | Outpatient (REF) | payer OTHER, MEDICARE, MEDICAID, SELFPAY ==
--- NOTE | ~2024-11-21 | XR_ITS ---
CLINICAL HISTORY: M23.51 - Chronic instability of knee, right knee 4 view right knee Comparison: CR/SR - XR KNEE RT 4V - 08/12/23 13:19 EDT Findings: Bones intact. No dislocations. Mild joint space narrowing in the patellofemoral compartment. No joint effusion. No radiopaque foreign body. Enthesophytes of the superior and to a lesser extent inferior pole of the patella. Heterotopic focus of calcification along the anterior distal femoral tissues measuring 1 cm, new from prior. IMPRESSION: 1. No acute findings. This document has been electronically signed by: Syed Ayala MD on 11/23/2024 20:15:52
== END 2024-11-21 13:38 | disposition home or self-care (01) ==
LOC: HO.XRAY 13:37
PROVIDERS: PCP Physician Assistant; Visit Provider Physician Assistant
DX: Z13.1 Encounter for screening for diabetes mellitus (principal); M23.51 Chronic instability of knee, right knee; H93.13 Tinnitus, bilateral; M47.816 Spondylosis without myelopathy or radiculopathy, lumbar region; E78.5 Hyperlipidemia, unspecified; I10 Essential (primary) hypertension
CPT/HCPCS: 83036; 96127

== ENCOUNTER 2024-11-23 09:56 | Outpatient (REF) | payer OTHER, SELFPAY | END 2024-11-23 09:57 | disposition home or self-care (01) | LOC: HO.SH 09:56 | PROVIDERS: Visit Provider Physician Assistant | DX: Z01.118 Encounter for examination of ears and hearing with other abnormal findings (principal); H93.293 Other abnormal auditory perceptions, bilateral; H93.13 Tinnitus, bilateral | CPT/HCPCS: 92557; 92567; 92625 ==

== ENCOUNTER → 2024-11-23 10:52 | Outpatient (BNV) | payer OTHER, MEDICARE, MEDICAID, SELFPAY | PROVIDERS: PCP Physician Assistant; Visit Provider Radiology Diagnostic Radiology | DX: M23.51 Chronic instability of knee, right knee (principal) | CPT/HCPCS: 73564 ==

== ENCOUNTER 2025-02-01 13:21 | Outpatient (AMB) | payer OTHER, SELFPAY ==
--- NOTE | 2025-02-01 13:26 | A.OFFPC_ITS ---
Vital Signs 3 02/01/25 13:30 Height 5 ft 3 in Weight 217 lb 2 oz BMI 38.5 BP 126/70 Blood Pressure Location Lt brachial Position Sitting Pulse 94 Pulse Source Pulse Oximeter Temp 97.3 F Temp Source Temporal Artery Scan Pulse Oximetry (%) 96 Oxygen Delivery Method Room Air Intake Visit Reasons: half her right leg being swollen and very sore Predictive Maintenance Specialist Required: No Accompanied by: Self / Same As Patient Allergies morphine [Morphine] Allergy (Intermediate, Verified 02/01/25 13:31) VOMITING oxycodone [Percocet] Allergy (Unknown, Verified 02/01/25 13:31) Vomiting methocarbamol Adverse Reaction (Intermediate, Verified 02/01/25 13:31) GI upset Medication List - Last Reconciled 02/01/25 by Festus Lang PA-C acetaminophen ER 650 mg PO Q12H PRN 10 days albuterol sulfate 90 mcg/actuation (Ventolin HFA) 1 puff inhalation QID 30 days allopurinol 100 mg PO DAILY atorvastatin 40 mg PO DAILY 90 days baclofen 10 mg PO BID 90 days blood sugar diagnostic ([employer] test strips) 1 strip miscellaneous DAILY clonidine HCl 0.3 mg PO BEDTIME cyanocobalamin (vitamin B-12) (Vitamin B-12) 1,000 mcg PO DAILY diclofenac sodium 75 mg PO BID 90 days ergotamine-caffeine 1-100 mg 1 tab PO Q30M PRN 30 days gabapentin 400 mg PO TID 30 days hydrocodone-acetaminophen 5-325 mg 1 tab PO BID PRN 4 days hydroxyzine HCl 10 mg PO BEDTIME 30 days losartan 50 mg PO DAILY magnesium oxide 250 mg PO DAILY 90 days methylprednisolone 4 mg PO DAILY montelukast 10 mg PO DAILY 90 days multivitamin 1 tab PO DAILY nicotine 1 patch transdermal DAILY nicotine 1 patch transdermal Q24H pantoprazole 40 mg PO DAILY tizanidine 2 mg PO Q8H 30 days trazodone 400 mg (4 x 100 mg) PO BEDTIME 30 days Tobacco use date assessed: 11/21/24 Dental Screening Dental Screen Date: 11/21/24 HPI half her right leg being swollen and very sore 2 HPI0 Details Patient is a 54-year-old female here today for problem visit. She reports over last 2 months she has been having worsening right lower extremity pain, burning particularly in the calf in the right lateral thigh. She does have history of degenerative disc disease and spinal stenosis in the lumbar spine. She has gotten injection last year for her lower lumbar spine though offered minimal relief. She does report worsening leg pain, burning and numbness along with some instability in the leg. She has been walking with a cane for assistance to reduce her fall risk. She has used gabapentin though felt it was not effective for her above symptoms. Has used tizanidine though again not effective. Does report hydrocodone is somewhat effect on reducing her pain from time to time. [facility] Medical History Hyperuricemia Asthma Obese Osteoarthritis Trigger finger Carpal tunnel syndrome Hyperlipidemia LDL goal <100 Essential hypertension Hyperlipidemia Cellulitis, umbilical Surgical History History of esophagogastroduodenoscopy (EGD) Hx of colonoscopy History of laparoscopic appendectomy History of foot surgery History of carpal tunnel release H/O: hysterectomy Family History Father Diabetes Hypertension Stroke Heart attack, Onset Age: 50 Mother Multiple sclerosis Brother In good health Son In good health Son In good health Other Patient denies medical problems Social History Household Members: Spouse and Other Housing: Apartment Alcohol intake: current Alcohol intake frequency: a few times a month Alcohol type: beer Patient Tobacco Use Status: Current everyday Tobacco user Tobacco use type: Cigarette Cigarette Packs Per Day: 0.33 Cigarettes Per Day: 6.6 Years Smoked: 43-started at age 8 Packs Per Year: 0 Packs per year/per ci.00 e-Cigarette/Vaping Use: Never Used Second Hand Smoke Exposure: No service: No Current occupational status: disabled Cognitive needs: No Hearing needs: No Vision needs: Yes (glasses) Questionnaire Thrive Questionnaire Date Thrive assessed: 11/21/24 SUSANA-7 AMB Questionnaire SUSANA-7 Date SUSANA - 7 assessed: 11/21/24 Source: Developed by Drs. Eduard Sherwood, Arlen Valdes, Rad Yao and colleagues, with an educational enrique from [employer]. Review of Systems Const Denies headache(s) Eyes Denies loss of vision ENT Denies vertigo, Denies dizziness, Denies headache(s) and Denies sore throat Card Denies chest pain, Denies leg edema and Denies lightheadedness Resp Denies cough, Denies hemoptysis and Denies wheezing GI Denies abdominal pain, Denies melena, Denies constipation, Denies diarrhea and Denies vomiting Denies urinary frequency, Denies dysuria and Denies urinary urgency Musc Denies arthralgias, Denies joint swelling, Denies numbness and Denies tingling Neuro Denies Abnormal speech present, Denies behavioral changes, Denies vertigo, Denies dizziness, Denies headache(s), Denies loss of vision, Denies memory loss, Denies numbness and Denies tingling Psych Denies anxiety, Denies behavioral changes, Denies depression, Denies memory loss and Denies panic attacks Otis/Lymph Denies easy bleeding and Denies easy bruising Aller/Immun Denies wheezing Physical exam (Primary Care) Tobacco/Smoking Status: Tobacco use Status Tobacco use date assessed 11/21/24 02/01/25 13:28 Patient Tobacco Use Status Current everyday Tobacco 02/01/25 13:28 Tobacco use type Cigarette 02/01/25 13:28 e-Cigarette/Vaping Use Never Used 02/01/25 13:28 Thrive Assessment: Date of Thrive Assessment Date Thrive assessed 11/21/24 02/01/25 13:28 Const General: healthy appearing, no acute distress, alert and awake Nutritional Appearance: well nourished Orientation/consciousness: oriented to person, oriented to place and oriented to time HENMT Ears: TM's normal bilaterally General nose exam: Normal nasal mucous membranes and turbinates present Eyes Conjunctivae: conjunctivae normal Sclerae: sclerae normal Pupils: Equal, round and reactive pupils present Neck Neck: Yes no lymphadenopathy and Yes no JVD Thyroid: Thyroid normal Carotids: no bruits Resp Effort & Inspection: normal respiratory effort and not tachypneic Auscultation: no crackles, no rales, no rhonchi and no wheezes Cardio Rate: regular rate Rhythm: regular rhythm Heart sounds: no murmurs and normal S1 and S2 GI Palpation (GI): Soft to palpation, nontender, no hepatomegaly and no splenomegaly Auscultation: normal bowel sounds Skin General skin exam: no rashes or lesions noted and dry skin Neuro General: oriented to person, oriented to place and oriented to time Cranial nerves: Yes Equal, round and reactive pupils present Speech: No Abnormal speech present Gait exam (Neuro): Normal gait present Motor exam (neuro): no tremor noted Extrem Right upper extremity: full ROM Left upper extremity: full ROM Right lower extremity: full ROM; no edema Left lower extremity: full ROM; no edema Upper/lower leg/hip images: 2 1. PAIN SUBJECTIVELY NOTED IN THE AREA OUTLINED Psych Mental Status: mental status grossly normal Speech and movement: Normal speech and movement present Affect: normal affect Attitude: cooperative Thought process: Normal thought process present Coding Level of Care Code Est Pt Level 3 (95356) Diagnoses Lumbar radiculopathy, chronic M54.16 Recurrent right knee instability M23.51 Right leg paresthesias R20.2 Assessment & Plan Assessment & Plan (1) Lumbar radiculopathy, chronic: Code(s): M54.16 - Radiculopathy, lumbar region Category: Medical Plan: Patient's signs and symptoms are concerning for a disc herniation in her lower lumbar spine.\ Did have an MRI of her lumbar spine in 2023 showing-- > Severe multilevel DDD and spondylosis with multilevel disc bulging, disc herniations and disc osteophyte complexes as described above superimposed on developmental lumbar spinal canal stenosis. 3. Multilevel bilateral facet joint arthrosis and ligamentum flavum thickening as detailed by level above. 4. Severe spinal canal stenosis at L4-L5 and L3-L4, [id number] spinal canal stenosis at L2-L3 with mild spinal canal stenosis at L1-L2 and T12-L1. 5. Significant multilevel bilateral neural foraminal stenosis, with multilevel exiting nerve root impingement as detailed by level above. Will try for repeat lumbar spine MRI has pain has been getting worse and some instability in her right lower extremity has been noted. She walks with a cane for ambulation assistance at this time. Will try for physical therapy to help her with her lower lumbar spine in leg instability. Advised on speaking with her pain management again about a possible injection in her lumbar spine again which had offered minimal relief in the past. (2) Recurrent right knee instability: Code(s): M23.51 - Chronic instability of knee, right knee Category: Medical Plan: As above (3) Right leg paresthesias: Code(s): R20.2 - Paresthesia of skin Category: Medical Plan: Due to patient's reports of burning sensation and numbness over the calf and lateral thigh concerning for nerve issue. Will send for EMG testing of the right lower extremity to identify location of disease. Orders: Orders 2 NE electromyogram (EMG) Today R20.2 - Paresthesia of skin NE nerve conduction velocity Today R20.2 - Paresthesia of skin MR lumbar spine wo con Today M54.16 - Radiculopathy, lumbar region PT Evaluation and Treatment Today M51.9 - Unspecified thoracic, thoracolumbar and lumbosacral intervertebral disc disorder, M54.16 - Radiculopathy, lumbar region Medications: New 2 lorazepam 1 mg PO DAILY 1 day PRN 1 tab 0RF anxiety M54.16 - Radiculopathy, lumbar region Refilled 2 ergotamine-caffeine 1-100 mg do not exceed 6 mg per day or 10 mg per wk 1 tab PO Q30M 30 days PRN 30 tabs 7RF migraine headache G43.009 - Migraine without aura, not intractable, without status migrainosus hydrocodone-acetaminophen 5-325 mg Partial Fill upon patient request. 1 tab PO BID 4 days PRN 8 tabs 0RF pain G89.29 - Other chronic pain, M25.531 - Pain in right wrist
[2025-02-01 13:30] VITALS: BP 126/70; PULSE 94; TEMP 36.3; O2SAT 96; BMI 38.5
== END 2025-02-01 13:53 | disposition home or self-care (01) ==
LOC: HO.HMCH 13:22
PROVIDERS: PCP Physician Assistant; Visit Provider Physician Assistant
DX: M54.16 Radiculopathy, lumbar region (principal); M23.51 Chronic instability of knee, right knee; R20.2 Paresthesia of skin

== ENCOUNTER → 2025-02-01 13:21 | Outpatient (BNVA) | payer OTHER, SELFPAY | PROVIDERS: PCP Physician Assistant; Visit Provider Physician Assistant | DX: M54.16 Radiculopathy, lumbar region (principal); M23.51 Chronic instability of knee, right knee; R20.2 Paresthesia of skin | CPT/HCPCS: 99212 ==

== ENCOUNTER 2025-02-10 10:18 | Outpatient (REF) | payer MEDICARE, SELFPAY ==
--- NOTE | ~2025-02-10 | MR_ITS ---
EXAMINATION: MR LUMBAR SPINE WITHOUT CONTRAST CLINICAL INFORMATION: Radiculopathy, lumbar region. COMPARISON: January 01, 2024. TECHNIQUE: MRI of the lumbar spine was obtained using routine sequences without contrast. FINDINGS: Last rib-bearing vertebra labeled T12. There is bone marrow STIR signal within the vertebral body of L3 and to a lesser extent L2 extending from the anterior to the posterior: 6 at L3. Multilevel marginal osteophyte formation and disc desiccation. 1 mm retrolisthesis L1-2 and L2-3 levels. 1 mm anterolisthesis L4-5 likely degenerative. S-shaped curvature of the lumbar spine. Conus pneumonitis and is at inferior endplate of L1 with normal signal. T12-L1: Left subarticular broad-based disc herniation resulting in ventral indentation to the thecal sac abutting the cord without cord signal abnormality. L1-2: Broad-based disc bulging. Facet joint and ligamentum flavum hypertrophy. Central spinal canal stenosis encroaching the neural elements of the thecal sac. Bilateral neuroforamina narrowing. L2-3: Broad-based disc bulging. Facet joint and ligamentum flavum hypertrophy. CSF effacement of the thecal sac and central spinal canal stenosis compressing the neural elements of the thecal sac and likely the left L2 exiting nerve root. L3-4: Broad-based disc bulging. Facet joint and ligamentum flavum hypertrophy resulting in CSF effacement of the thecal sac central spinal canal and bilateral neuroforamina stenosis compressing the neural elements. L4-5: Broad-based disc bulging. Facet joint and ligamentum flavum hypertrophy resulting in CSF effacement of the thecal sac central spinal canal and bilateral neuroforamina stenosis compressing the neural elements. L5-S1: Broad-based disc bulging. Facet joint and ligamentum flavum hypertrophy and facet effusions. CSF effacement of the thecal sac. Central spinal canal and neuroforamina stenosis compressing the neural elements. No prevertebral compartment hematoma, mass or fluid collection. MR/MR lumbar spine wo con IMPRESSION: Multilevel lumbar spondylosis resulting in central spinal canal stenosis and bilateral neuroforamina stenosis compressing the neural elements both thecal sac and the exiting nerve roots from L2-3 to L5-S1. Left subarticular broad-based disc herniation T12-L1 without cord compression. Electronically signed by: Lucas Espana MD 02/10/2025 02:00 PM EDT RP
== END 2025-02-10 10:19 | disposition home or self-care (01) ==
LOC: HO.MRI 10:18
PROVIDERS: PCP Physician Assistant; Visit Provider Physician Assistant
DX: M54.16 Radiculopathy, lumbar region (principal)
CPT/HCPCS: 72148

== ENCOUNTER → 2025-02-10 10:18 | Outpatient (BNV) | payer MEDICARE, SELFPAY | PROVIDERS: PCP Physician Assistant; Visit Provider Radiology Diagnostic Radiology | DX: M47.896 Other spondylosis, lumbar region (principal) | CPT/HCPCS: 72148 ==

== ENCOUNTER 2025-02-20 11:24 | Outpatient (AMB) | payer MEDICARE, SELFPAY ==
--- NOTE | 2025-02-20 12:12 | A.SPINEOV_ITS ---
Intake Visit Reasons: spinal stenosis Intake Note: Ms. Carey is here today to discuss the results of her MRI. 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 This is a patient known to us from previous evaluation for back pain and leg pain. Over the last few months she has developed a new symptom into her right buttock going into her posterolateral thigh ending at about her calf level. Standing and walking has been brutal. She has been unable to get around, feeling like her leg will give out from underneath her. She has previously been through therapy, chiropractic as well as anti-inflammatories and Tylenol. The last time we saw her the symptoms were in her anterior thigh but at this point the problem is shifted over to her right leg. In terms of back pain, currently she is not having anything more than some [id number] discomfort. Physical exam reveals no focal deficits, she can stand up slowly and walk independently. Her new MRI at [place] shows ongoing stenosis as previously seen, moderate at L2-3, severe at L3-4 and L4-5. There is varying degrees of foraminal stenosis, but specifically the right L5 foramen is severely collapsed. I think at this point she would be a good candidate for surgery, I will need to review the imaging with Dr. Bull to see if we should address L3-4 and L4-5 with possible right L5 foraminotomy. I did briefly discuss this with the patient would told her I would like to get back to her after I speak with Dr. Bull to get a definitive surgical plan. I do not think injections are going to give her any meaningful long-term value here given the amount of stenosis. Total amount of time spent in this visit was 20 minutes in discussion of symptoms, [] imaging results and subsequent plan of care Ac Bull MD,PhD [facility] Coding Level of Care Code Est Pt Level 3 (95734) Diagnoses Lumbar radiculopathy, chronic M54.16
== END 2025-02-20 12:41 | disposition home or self-care (01) ==
LOC: HO.HNS 11:24
PROVIDERS: PCP Physician Assistant; Visit Provider Physician Assistant
DX: M54.16 Radiculopathy, lumbar region (principal)
CPT/HCPCS: 99213

== ENCOUNTER → 2025-02-20 11:24 | Outpatient (BNVA) | payer MEDICARE, SELFPAY | PROVIDERS: PCP Physician Assistant; Visit Provider Physician Assistant | DX: M54.16 Radiculopathy, lumbar region (principal) | CPT/HCPCS: 99212 ==

== ENCOUNTER 2025-03-02 10:40 | Emergency (ER) | payer MEDICARE, MEDICAID, SELFPAY ==
--- NOTE | ~2025-03-02 | CT_ITS ---
EXAMINATION: CT HEAD WITHOUT CONTRAST CLINICAL INFORMATION: Headache COMPARISON: MRI of the head 11/18/2023 TECHNIQUE: Contiguous axial imaging was performed from the skull base to vertex without intravenous administration of contrast. This CT examination was performed using dose optimization techniques as appropriate, variously including the following: *Automated exposure control *Adjustment of mA and/or kV according to patient size (this includes techniques or standardized protocols for targeted exams where dose is matched to indication/reason for exam; i.e. extremities or head) *Use of iterative reconstruction technique FINDINGS: There is no evidence of intracranial hemorrhage or extra-axial fluid collection. There is no mass effect, or edema. No CT evidence of acute territorial infarct. Ventricles, sulci, and cisterns are normal in size and configuration for patient age. No hydrocephalus. No midline shift. Negative hyperdense MCA sign. Negative insular ribbon sign. Patchy periventricular and deep white matter hypoattenuation is consistent with moderate small vessel ischemic changes. Partial empty sella. Globes and orbital contents image normally. No extracranial soft tissue abnormalities. The paranasal sinuses, mastoid air cells, and tympanic cavities are normally aerated. No suspicious bony abnormalities. There are no acute fractures evident. CT/CT head/brain wo IV con IMPRESSION: No acute intracranial abnormality. Electronically signed by: Adilson Mejia MD 03/02/2025 03:25 PM EDT
[2025-03-02 10:49] VITALS: BP 130/77; PULSE 77; RESP 18; TEMP 36.3; O2SAT 100; BMI 38.7
--- NOTE | 2025-03-02 10:49 | ED_ITS ---
HPI - General Adult General Chief complaint: Headache Stated complaint: Head pain L side 4 days Time Seen by Provider: 03/02/25 11:07 Source: patient and old records reviewed Mode of arrival: ambulatory Limitations: no limitations History of Present Illness ED Provider: CODY ESCALANTE narrative: 54 yo female with PMH of depression, back pain, migraines, GERD, DM, asthma, obesity, HLD, HTN, not on blood thinners here with c/o posterior L sided headache since Thursday that has worsened. She was resting when it started. She has nausea, photophobia and sensitivity to sounds. She tried her ergotamine for pain but no relief. No new trauma, neck manipulation she has no fevers or neck pain and no URI symptoms MD complaint: headache Onset (ago): day(s) (4) Location: head Radiation: non-radiation Severity: moderate Quality: aching Pain Consistency: constant Relieving factors: none Exacerbating factors: other (bright lightn, noise) Associated symptoms: headaches and nausea/vomiting Treatments prior to arrival: other Related Data Home Medications ?Medication ?Instructions ?Recorded ?Confirmed multivitamin 1 tab PO DAILY 07/31/22 03/01/25 albuterol sulfate 90 mcg/actuation 1 puff inhalation QID PRN 03/01/25 03/01/25 aerosol inhaler (Ventolin HFA) Shortness Of Breath Or Wheezing omega-3 fatty acids 500 mg capsule 500 mg PO DAILY 03/01/25 03/01/25 tizanidine 2 mg tablet 2 mg PO Q8H PRN muscle spasticity 03/01/25 03/01/25 Previous Rx's ?Medication ?Instructions ?Recorded blood sugar diagnostic (OneTouch 1 strip miscellaneous DAILY #50 09/12/22 Verio test strips) strips acetaminophen 650 mg 650 mg PO Q12H PRN pain 10 days 10/08/23 tablet,extended release #20 tabs baclofen 10 mg tablet 10 mg PO BID 90 days #180 tabs 03/22/24 diclofenac sodium 75 mg 75 mg PO BID 90 days #180 tabs 03/22/24 tablet,delayed release magnesium oxide 250 mg PO DAILY 90 days #90 tabs 08/04/24 clonidine HCl 0.3 mg tablet 0.3 mg PO BEDTIME #90 tabs 08/29/24 allopurinol 100 mg tablet 100 mg PO DAILY #30 tabs 09/21/24 cyanocobalamin (vitamin B-12) 1,000 mcg PO DAILY #90 tabs 09/27/24 1,000 mcg tablet (Vitamin B-12) losartan 50 mg tablet 50 mg PO DAILY #90 tabs 10/15/24 montelukast 10 mg tablet 10 mg PO DAILY 90 days #90 tabs 01/18/25 ergotamine 1 mg-caffeine 100 mg 1 tab PO Q30M PRN migraine 02/01/25 tablet headache 30 days #30 tabs hydrocodone 5 mg-acetaminophen 325 1 tab PO BID PRN pain 4 days #8 02/01/25 mg tablet tabs atorvastatin 40 mg tablet 40 mg PO DAILY 90 days #90 tabs 02/02/25 pantoprazole 40 mg tablet,delayed 40 mg PO DAILY #90 tabs 02/17/25 release rollator walker with seat #1 ea 02/20/25 trazodone 100 mg tablet 400 mg (4 x 100 mg) PO BEDTIME 30 02/21/25 days #120 tabs ketorolac 10 mg tablet 10 mg PO TID PRN pain 5 days #15 03/02/25 tabs Allergies Allergy/AdvReac Type Severity Reaction Status Date / Time gabapentin Allergy Intermediate Nausea and Verified 03/02/25 10:52 Vomiting morphine [Morphine] Allergy Intermediate VOMITING Verified 03/02/25 10:52 oxycodone [Percocet] Allergy Intermediate Vomiting Verified 03/02/25 10:52 methocarbamol AdvReac Intermediate GI upset Verified 03/02/25 10:52 Review of Systems 2 Review of Systems: Constitutional : No Fever, No Chills, No Fatigue ENT/Mouth : No sore throat, No Rhinorrhea Eyes: pos Eye Pain, No Swelling, No Redness Cardiovascular : No Chest Pain, No SOB, No Dyspnea on Exertion Respiratory : No Cough, No Sputum Gastrointestinal : pos Nausea, No Vomiting, No Diarrhea, No abdominal Pain Genitourinary : No Dysuria, No Urinary Frequency, No Hematuria, Musculoskeletal : No joint pain, No Myalgias, No Joint Swelling Skin : No Skin Lesions, No rash Neuro : No Weakness, No Numbness, No Dizziness, positive Headache Psych : No Anxiety/Panic, No Depression Heme/Lymph: No Bruising, No Bleeding,No Lymphadenopathy Endocrine : No Polyuria, No Polydipsia All other systems reviewed and are negative [facility] Past Medical History Attestation statement: The following information was validated with the patient. Source: old records reviewed Medical History Anxiety MDD (major depressive disorder) Gout GERD (gastroesophageal reflux disease) Ambulates with cane Smoker Hyperuricemia Asthma Obese Osteoarthritis Trigger finger Carpal tunnel syndrome Hyperlipidemia LDL goal <100 Essential hypertension Hyperlipidemia Cellulitis, umbilical Surgical History History of esophagogastroduodenoscopy (EGD) Hx of colonoscopy History of laparoscopic appendectomy History of foot surgery History of carpal tunnel release H/O: hysterectomy Family History Family History Father Diabetes Hypertension Stroke Heart attack, Onset Age: 50 Mother Multiple sclerosis Brother In good health Son In good health Son In good health Other Patient denies medical problems Social History Social History Household Members: Spouse and Other Housing: Apartment Are you a primary care management associate to a significant other at home: No Do you presently have visiting nurse or other home services: No Alcohol intake: current Alcohol intake frequency: holidays/special occasions only Alcohol type: beer Patient Tobacco Use Status: Current everyday Tobacco user Tobacco use type: Cigarette Cigarettes Per Day: 8 Years Smoked: 43-started at age 8 e-Cigarette/Vaping Use: Never Used Second Hand Smoke Exposure: Yes Advance Directives: No Advance Directives Information Provided: Yes service: No Current occupational status: disabled Cognitive needs: No Hearing needs: No Vision needs: Yes (glasses) Physical Exam ED Vital Signs: Vital Signs - 24 hr 03/02/25 10:49 03/02/25 14:45 Temperature 97.4 F 98.0 F Pulse Rate 77 74 Respiratory Rate 18 15 Blood Pressure 130/77 115/68 Pulse Oximetry 100 97 Oxygen Delivery Method Room Air Room Air BMI result Body Mass Index 38.7 Appearance: Alert. Oriented X3. No acute distress. Eyes: Pupils equal, round and reactive to light. ENT: Pharynx normal. TMs normal no ttp temporal artery Neck: Normal inspection. Neck supple. no meningeal signs CVS: Normal heart rate and rhythm. Pulses normal. Respiratory: No respiratory distress. Breath sounds normal. Abdomen: Soft and nontender. Skin: Skin warm and dry. Normal skin color. Normal skin turgor. Extremities: No lower extremity edema. No calf ttp Neuro: Oriented X 3. No motor deficit. No sensory deficit. CN2-12 intact Course Course Course Narrative: This is a rapid medical exam performed by Viola Gonzalez NP: Additional HPI, ROS, PE not included below will be deferred to primary provider. Patient is a 54-year-old female with history of T2DM, HLD, HTN, asthma, obesity, migraines, smoker, GERD presenting with complaint of pain to left side of head causing headaches for the past 4 days. Reports hx of migraines. Denies vision changes, difficulty speaking, dizziness. Using ergotamine without relief. Plan: viral panel to start Medications Administered Discontinued Medications Generic Name Dose Route Start Last Admin Trade Name Freq PRN Reason Stop Dose Admin Acetaminophen/Butalbital/Caffeine 1 tab 03/02/25 15:43 03/02/25 15:49 Butalb/Acetamin/Caff 50/325/40 Tablet PO 03/02/25 15:44 1 tab ONCE ONE Administration Diphenhydramine HCl 25 mg 03/02/25 11:37 03/02/25 12:12 Diphenhydramine Hcl 50 Mg/Ml Vial IVPUSH 03/02/25 11:38 25 mg ONCE ONE Administration Ketorolac Tromethamine 15 mg 03/02/25 15:43 03/02/25 15:49 Ketorolac Tromethamine 15 Mg/Ml Vial IVPUSH 03/02/25 15:44 15 mg ONCE ONE Administration Metoclopramide HCl 10 mg 03/02/25 11:37 03/02/25 12:12 Metoclopramide Hcl 10 Mg/2 Ml Vial IVPUSH 03/02/25 11:38 10 mg ONCE ONE Administration Medical Decision Making Medical Decision Making MDM Narrative: 54 yo female with PMH of depression, back pain, migraines, GERD, DM, asthma, obesity, HLD, HTN, not on blood thinners here with c/o headache since Thursday she has no fevers, neuro exam and gait normal, no meningeal signs it seems atypical for SAH. Given it is different from her prior migraines I am going to obtain labs, viral panel, CT head for mass/ICH. Start on migraine medications. Differential Diagnosis Differential Diagnoses: The differential diagnosis associated with the presentation includes migraine, tension headache, mass, ICH less likely Admission/Observation Consideration of admission/observation: Escalation of care including admission/observation considered feels better stable for DC Lab Data MDM Lab Attestation statement: I reviewed the patient's lab results. 03/02/25 12:11 03/02/25 12:10 Labs: Lab Results 03/02/25 03/02/25 03/02/25 Range/Units 11:02 12:10 12:11 WBC 7.4 (4.8-10.8) X10*3/uL RBC 4.26 (4.20-5.50) X10*6/uL Hgb 13.2 (12.0-16.0) g/dl Hct 39.6 (37.0-47.0) % MCV 93.0 (80.0-98.0) fL MCH 31.0 (27.0-33.0) pg MCHC 33.3 (31.0-35.0) g/dl RDW 12.7 (11.0-16.0) % Plt Count 246 (160-400) X10*3/uL MPV 9.1 L (9.4-12.3) fL Immature Gran % (Auto) 0.1 (0.0-0.4) % Neut % (Auto) 49.7 (45-73) % Lymph % (Auto) 42.1 H (20-40) % [place] % (Auto) 5.6 (2-11) % Eos % (Auto) 1.8 (0-4) % Baso % (Auto) 0.7 (0-2) % Lymph # (Auto) 3.1 (1.2-4.9) X10*3/uL [place] # (Auto) 0.4 (0.1-1.2) X10*3/uL Eos # (Auto) 0.1 (0.0-0.4) X10*3/uL Baso # (Auto) 0.1 (0.0-0.2) X10*3/uL Abs Immat Gran (auto) 0.01 (0.00-0.03) X10*3/uL Absolute Neuts (auto) 3.7 (2.0-8.3) x10*3/uL Absolute Nucleated RBC 0.000 (0.0-0.012) X10*3/uL Nucleated RBC % (auto) 0.0 (0.0-0.2) /100WBC ESR 7 (0-20) MM/HR Sodium 144 (135-145) mmol/L Potassium 4.0 (3.3-5.1) mmol/L Chloride 108 (96-108) mmol/L Carbon Dioxide 26 (22-29) mmol/L Anion Gap 14 (12-20) BUN 22 H (9-16) mg/dL Creatinine 0.73 (0.5-1.4) mg/dL Estim Creat Clear Calc 98.8 Estimated GFR > 60 Random Glucose 112 (60-115) mg/dL Calcium 9.9 (8.4-10.2) mg/dL Magnesium 1.7 (1.6-2.6) mg/dL Influenza Type A (PCR) NEGATIVE (Negative) Influenza Type B (PCR) NEGATIVE (Negative) RSV RNA Qual (PCR) NEGATIVE (Negative) SARS-CoV-2 RNA (RT-PCR) NEGATIVE (Negative) Independent Interpretation I performed an independent interpretation of an: CT Scan (normal ) Radiology Impression Discussion of test interpretation with radiology: I have reviewed the radiologist's reading. External Record Review External record reviewed: Outpatient record Prescription Management I considered prescription management with: Other Discharge Plan Discharge Clinical Impression: Headache Qualifiers: Headache type: unspecified Headache chronicity pattern: acute headache I ntractability: not intractable Qualified Code(s): R51.9 - Headache, unspecified Patient Disposition: Home, Self-Care Instructions: Acute Headache (ED) Additional Instructions: labs and viral panel reassuring today at this time CT head no acute findings rest and stay hydrated return for any worsening symptoms or concerns follow up with your doctor do not mix the toradol with motrin, aleve, ibuprofen, aspirin, diclofenac Prescriptions: New ketorolac 10 mg tablet 10 mg PO TID PRN (Reason: pain) 5 Days Qty: 15 0RF Rx Instructions: given IV toradol in department No Action OneTouch Verio test strips Strip 1 strip miscellaneous DAILY Qty: 50 0RF acetaminophen 650 mg tablet extended release 650 mg PO Q12H PRN (Reason: pain) 10 Days Qty: 20 0RF diclofenac sodium 75 mg tablet,delayed release (DR/EC) 75 mg PO BID 90 Days Qty: 180 2RF baclofen 10 mg tablet 10 mg PO BID 90 Days Qty: 180 2RF magnesium oxide 250 mg magnesium tablet 250 mg PO DAILY 90 Days Qty: 90 2RF clonidine HCl 0.3 mg tablet 0.3 mg PO BEDTIME Qty: 90 2RF allopurinol 100 mg tablet 100 mg PO DAILY Qty: 30 11RF cyanocobalamin (vitamin B-12) [Vitamin B-12] 1,000 mcg tablet 1,000 mcg PO DAILY Qty: 90 1RF losartan 50 mg tablet 50 mg PO DAILY Qty: 90 5RF montelukast 10 mg tablet 10 mg PO DAILY 90 Days Qty: 90 8RF atorvastatin 40 mg tablet 40 mg PO DAILY 90 Days Qty: 90 1RF pantoprazole 40 mg tablet,delayed release (DR/EC) 40 mg PO DAILY Qty: 90 1RF (DME) rollator walker with seat See Rx Instructions .Route .MEDSUPPLY Qty: 1 0RF Rx Instructions: As directed trazodone 100 mg tablet 400 mg PO BEDTIME 30 Days Qty: 120 6RF tizanidine 2 mg tablet 2 mg PO Q8H PRN (Reason: muscle spasticity) albuterol sulfate [Ventolin HFA] 90 mcg/actuation HFA aerosol inhaler 1 puff inhalation QID PRN (Reason: Shortness Of Breath Or Wheezing) Fish Oil 500 mg Capsule 500 mg PO DAILY multivitamin Tablet 1 tab PO DAILY hydrocodone-acetaminophen 5-325 mg tablet 1 tab PO BID PRN (Reason: pain) 4 Days Qty: 8 0RF Rx Instructions: Partial Fill upon patient request. ergotamine-caffeine 1-100 mg tablet 1 tab PO Q30M PRN (Reason: migraine headache) 30 Days Qty: 30 7RF Rx Instructions: do not exceed 6 mg per day or 10 mg per wk Print Language: Swiss
[2025-03-02 11:44] LABS: Influenza A PCR NEGATIVE (Negative); Influenza B PCR NEGATIVE (Negative); Resp Syncy Virus RNA Qual PCR NEGATIVE (Negative); SARS COV2 PCR INHOUSE NEGATIVE (Negative)
[2025-03-02] MEDS: diphenhydrAMINE HCL 50 MG/ML VIAL 25 MG IVPUSH (12:12)
[2025-03-02] MEDS: Metoclopramide HCl 10 MG/2 ML VIAL IVPUSH (12:12)
[2025-03-02 12:15] LABS: MANUAL DIFF FLAG NO
[2025-03-02 12:18] LABS: Basophils Absolute Auto 0.1 X10*3/uL (0.0-0.2); Basophils Percent Auto 0.7 % (0-2); Eosinophils Absolute Auto 0.1 X10*3/uL (0.0-0.4); Eosinophils Percent Auto 1.8 % (0-4); Hematocrit 39.6 % (37.0-47.0); Hemoglobin 13.2 g/dl (12.0-16.0); Imm Gran Abs Auto 0.01 X10*3/uL (0.00-0.03); Imm Gran Pct Auto 0.1 % (0.0-0.4); Lymphocytes Absolute Auto 3.1 X10*3/uL (1.2-4.9); Lymphocytes Percent Auto 42.1 % (20-40); Mean Corpuscular HGB Conc 33.3 g/dl (31.0-35.0); Mean Platelet Volume 9.1 fL (9.4-12.3); Monocytes Absolute Auto 0.4 X10*3/uL (0.1-1.2); Monocytes Percent Auto 5.6 % (2-11); Neutrophils Absolute Auto 3.7 x10*3/uL (2.0-8.3); Neutrophils Percent Auto 49.7 % (45-73); Platelet Count 246 X10*3/uL (160-400); Red Blood Count 4.26 X10*6/uL (4.20-5.50); Red Cell Distribution Width 12.7 % (11.0-16.0); White Blood Count 7.4 X10*3/uL (4.8-10.8)
[2025-03-02 12:33] LABS: Anion Gap 14 (12-20); Blood Urea Nitrogen 22 mg/dL (9-16); Calcium 9.9 mg/dL (8.4-10.2); Carbon Dioxide 26 mmol/L (22-29); Chloride 108 mmol/L (96-108); Creatinine Clr Calc Pharmacy 98.8; Estimated Glomerular Filt Rate > 60; Glucose Random 112 mg/dL (60-115); Magnesium 1.7 mg/dL (1.6-2.6); Sodium 144 mmol/L (135-145)
[2025-03-02 12:55] LABS: Erythrocyte Sedimentation Rate 7 MM/HR (0-20)
[2025-03-02 14:45] VITALS: BP 115/68; PULSE 74; RESP 15; TEMP 36.7; O2SAT 97
[2025-03-02] MEDS: Butalb/Acetamin/Caff 50/325/40 TABLET 1 TAB PO (15:49)
[2025-03-02] MEDS: Ketorolac Tromethamine 15 MG/ML VIAL IVPUSH (15:49)
[2025-03-02 16:47] VITALS: BP 127/79; PULSE 68; RESP 16; TEMP 36.4; O2SAT 97
== END 2025-03-02 16:48 | disposition home or self-care (01) ==
PROVIDERS: Registered Nurse Emergency; Emergency Provider Emergency Medicine; PCP Physician Assistant
DX: R51.9 Headache, unspecified (principal); R11.2 Nausea with vomiting, unspecified; I10 Essential (primary) hypertension; E78.5 Hyperlipidemia, unspecified; J45.909 Unspecified asthma, uncomplicated; Z79.899 Other long term (current) drug therapy; Z79.02 Long term (current) use of antithrombotics/antiplatelets; F17.210 Nicotine dependence, cigarettes, uncomplicated; Z03.818 Encounter for observation for suspected exposure to other biological agents ruled out
CPT/HCPCS: 0241U; 36415; 70450; 80048; 83735; 85025; 85652; 96374; 96375; 99284; J1200; J1885; J2765

== ENCOUNTER → 2025-03-02 11:37 | Outpatient (BNV) | payer MEDICARE, MEDICAID, SELFPAY | PROVIDERS: Emergency Provider Emergency Medicine; PCP Physician Assistant; Visit Provider Radiology Diagnostic Radiology | DX: R51.9 Headache, unspecified (principal) | CPT/HCPCS: 70450 ==

== ENCOUNTER 2025-03-08 10:00 | Outpatient (REF) | payer MEDICARE, MEDICAID, SELFPAY | END 2025-03-08 10:01 | disposition home or self-care (01) | LOC: HO.MAMMO 10:00 | PROVIDERS: PCP Physician Assistant; Visit Provider Physician Assistant | DX: Z12.31 Encounter for screening mammogram for malignant neoplasm of breast (principal) | CPT/HCPCS: 77063; 77067 ==

== ENCOUNTER → 2025-03-08 10:00 | Outpatient (BNV) | payer MEDICARE, MEDICAID, SELFPAY | PROVIDERS: PCP Physician Assistant; Visit Provider Internal Medicine | DX: Z12.31 Encounter for screening mammogram for malignant neoplasm of breast (principal) | CPT/HCPCS: 77063; 77067 ==

== ENCOUNTER 2025-03-09 13:58 | Outpatient (RCR) | payer MEDICARE, MEDICAID, SELFPAY ==
--- NOTE | 2025-03-10 12:41 | MHC.PT.EP ---
[facility] [place] Office [place] Office [place] Office [address] Sowmya Winters [address] [phone] F: [phone] F: [phone] F: [phone] F: [phone] Physical Therapy Plan of Care Date of Evaluation: 03/09/25 Date of Surgery: Diagnosis: Thoracolumbar interveterbral disc disorder, radiculopathy (MD Eaton) RS Assessment: Since Vickie is having back [facility] by [facility] I am not having her come back for any FUP PT sessions. I focused this session today on education regarding tissue healing after surgery (8 weeks to expect for tissue healing time if bone is involved), back protection movements like proper supine to sit, sit to supine and log rolling, also functional mobility with utilizing cane step to pattern with railing on stairs since she has 4 flights at home. I also had her practice with cane in L hand to offload R LE. She was given printed handout of aforemented education topics. Frequency and Duration: The patient will be seen Short Term Goals: Shear Scrapman Goals: Treatment Plan: Modalities to reduce pain, spasms and effusion. Manual therapy to restore motion and function. Therapeutic exercise to improve strength and flexibility. Neuromuscular re-education for posture and balance. Therapeutic activities to return to functional activities of daily living. Electronically signed by: Dang España, PT, DPT Please sign and return to therapist. Thank you for your referral.
== END 2025-03-10 12:42 | disposition home or self-care (01) ==
LOC: HO.PT 13:58
PROVIDERS: PCP Physician Assistant; Visit Provider Physician Assistant
DX: M51.9 Unspecified thoracic, thoracolumbar and lumbosacral intervertebral disc disorder (principal); M54.16 Radiculopathy, lumbar region
CPT/HCPCS: 97162; 97535

== ENCOUNTER 2025-03-13 15:57 | Outpatient (AMB) | payer MEDICARE, MEDICAID, SELFPAY ==
--- NOTE | 2025-03-13 16:17 | A.OFFPC_ITS ---
Vital Signs 03/13/25 16:19 Height 5 ft 3 in Weight 216 lb 8 oz BMI 38.3 BP 140/60 H Blood Pressure Location Lt brachial Position Sitting Pulse 78 Pulse Source Pulse Oximeter Temp 97.3 F Temp Source Temporal Artery Scan Pulse Oximetry (%) 96 Oxygen Delivery Method Room Air Intake Visit Reasons: [facility] 03/02 Head pain L side 4 days Intake Note: Patient is here to follow-up after a visit the emergency department at [facility] on 03/02/25 Concrete Mason Required: No Information Technology Coordinator: Not Required per policy Accompanied by: Self / Same As Patient Allergies gabapentin Allergy (Intermediate, Verified 03/13/25 16:50) Nausea and Vomiting morphine [Morphine] Allergy (Intermediate, Verified 03/13/25 16:50) VOMITING oxycodone [Percocet] Allergy (Intermediate, Verified 03/13/25 16:50) Vomiting methocarbamol Adverse Reaction (Intermediate, Verified 03/13/25 16:50) GI upset Medication List - Last Reconciled 03/13/25 by eFstus Lang PA-C acetaminophen ER 650 mg PO Q12H PRN 10 days albuterol sulfate 90 mcg/actuation (Ventolin HFA) 1 puff inhalation QID PRN allopurinol 100 mg PO DAILY atorvastatin 40 mg PO DAILY 90 days baclofen 10 mg PO BID 90 days blood sugar diagnostic (OneTouch Verio test strips) 1 strip miscellaneous DAILY clonidine HCl 0.3 mg PO BEDTIME cyanocobalamin (vitamin B-12) (Vitamin B-12) 1,000 mcg PO DAILY diclofenac sodium 75 mg PO BID 90 days ergotamine-caffeine 1-100 mg 1 tab PO Q30M PRN 30 days hydrocodone-acetaminophen 5-325 mg 1 tab PO BID PRN 4 days ketorolac 10 mg PO TID PRN 5 days losartan 50 mg PO DAILY magnesium oxide 250 mg PO DAILY 90 days montelukast 10 mg PO DAILY 90 days multivitamin 1 tab PO DAILY omega-3 fatty acids 500 mg PO DAILY pantoprazole 40 mg PO DAILY [rollator walker with seat As directed] tizanidine 2 mg PO Q8H PRN trazodone 400 mg (4 x 100 mg) PO BEDTIME 30 days Tobacco use date assessed: 03/13/25 Dental Screening Dental Screen Date: 11/21/24 HPI [facility] [place] 5/22 Head pain L side 4 days HPI Details The patient is a 54-year-old female presenting with a persistent headache. She experienced the onset of head pain last week, beginning on the left side and later progressing to the right side, lasting several days and r esistant to typical migraine medications. A CT scan at a previous ER visit did not reveal any abnormalities. She describes exacerbation of the headache with certain neck movements and persistent discomfort upon waking, sometimes necessitating rest. She distinguishes these episodes from historical migraines, noting distinct differences in pain presentation. Upon inquiry, the patient was found to have some relief with Fioricet and requested a prescription. She is apprehensive about needles, affecting potential further diagnostic evaluation decisions, such as a CT angiogram. She is scheduled for back surgery, viewed as potentially relieving some associated symptoms, and her heightened concern warrants clinical follow-up regarding the headache specifically. All relevant details guide the understanding of the context and persistence of the symptoms. [facility] Medical History Anxiety MDD (major depressive disorder) Gout GERD (gastroesophageal reflux disease) Ambulates with cane Smoker Hyperuricemia Asthma Obese Osteoarthritis Trigger finger Carpal tunnel syndrome Hyperlipidemia LDL goal <100 Essential hypertension Hyperlipidemia Cellulitis, umbilical Surgical History History of esophagogastroduodenoscopy (EGD) Hx of colonoscopy History of laparoscopic appendectomy History of foot surgery History of carpal tunnel release H/O: hysterectomy Family History Father Diabetes Hypertension Stroke Heart attack, Onset Age: 50 Mother Multiple sclerosis Brother In good health Son In good health Son In good health Other Patient denies medical problems Social History Household Members: Spouse and Other Housing: Apartment Are you a primary ocular care technologist to a significant other at home: No Do you presently have visiting nurse or other home services: No Alcohol intake: current Alcohol intake frequency: holidays/special occasions only Alcohol type: beer Patient Tobacco Use Status: Current everyday Tobacco user Tobacco use type: Cigarette Cigarette Packs Per Day: 0.5 Cigarettes Per Day: 5 Years Smoked: 43-started at age 8 Packs Per Year: 0 Packs per year/per ci.00 e-Cigarette/Vaping Use: Never Used Second Hand Smoke Exposure: Yes service: No Current occupational status: disabled Cognitive needs: No Hearing needs: No Vision needs: Yes (glasses) Questionnaire PHQ-9 Over the last 2 weeks, how often have you been bothered by any of the following problems? 1. Little interest or pleasure in doing things: not at all 2. Feeling down, depressed, or hopeless: not at all 3. Trouble falling or staying asleep, or sleeping too much: not at all 4. Feeling tired or having little energy: not at all 5. Poor appetite or overeating: not at all 6. Feeling bad about yourself - or that you are a failure or have let yourself or your family down: not at all 7. Trouble concentrating on things, such as reading the newspaper or watching television: not at all 8. Moving or speaking so slowly that other people could have noticed. Or the opposite - being so fidgety or restless that you have been moving around a lot more than usual: not at all 9. Thoughts that you would be better off or of hurting yourself in some way: not at all Total score: 0 Depression Screening Interpretation: Negative Depression Screening Done: Yes 65415 - PHQ-9 Billing: Yes Source: Developed by Drs. Eduard Sherwood, Arlen Valdes, Rad Yao and colleagues, with an educational enrique from [employer]. Thrive Questionnaire Date Thrive assessed: 03/11/25 I am a: Patient What is your living situation today?: I have a steady place to live Within the past 12 months, did the food you bought not last and you didn't have the money to get more?: Often true Within the past 12 months, did you worry whether your food would run out before you got money to buy more?: Often true Do you have trouble paying for medicines?: No Do you have trouble getting transportation to medical appointments?: No Do you have trouble paying your heating and electricity bill?: No Do you have trouble taking care of your child, family member or friend?: No Do you have trouble with day-to-day activities such as bathing, preparing meals, shopping, managing finances, etc.?: No Are you currently unemployed and looking for a job?: Yes Are you interested in more education?: No Please select the resources that you would like help with: None Currently or been in a relationship where the following occur: I choose not to answer THRIVE Score: 2 AUDIT C Alcohol Use Questionnaire (AUDIT-C) 1. How often do you have a drink containing alcohol?: 2-4 times a month 2. How many drinks containing alcohol do you have on a typical day when you are drinking?: 5 or 6 3. How often do you have six or more drinks on one occasion?: Weekly Total Score: 7 SUSANA-7 AMB Questionnaire SUSANA-7 Date SUSANA - 7 assessed: 11/21/24 Feeling nervous, anxious, or on edge: 0 = Not at all Not being able to stop or control worryin = Not at all Worrying too much about different things: 0 = Not at all Trouble relaxin = Not at all Being so restless that it is hard to sit still: 0 = Not at all Becoming easily annoyed or irritable: 0 = Not at all Feeling afraid as if something awful might happen: 0 = Not at all Total SUSANA-7 score (0-4 normal; 5-9 mild; 10-14 moderate; 15-21 severe): 0 Source: Developed by Drs. Eduard Sherwood, Arlen Valdes, Rad Yao and colleagues, with an educational enrique from [employer]. Review of Systems Const Reports headache(s) Eyes Denies loss of vision ENT Denies vertigo, Denies dizziness, Reports headache(s) and Denies sore throat Card Denies chest pain, Denies leg edema and Denies lightheadedness Resp Denies cough, Denies hemoptysis and Denies wheezing GI Denies abdominal pain, Denies melena, Denies constipation, Denies diarrhea and Denies vomiting Denies urinary frequency, Denies dysuria and Denies urinary urgency Musc Denies arthralgias, Denies joint swelling, Denies numbness and Denies tingling Neuro Denies Abnormal speech present, Denies behavioral changes, Denies vertigo, Denies dizziness, Reports headache(s), Denies loss of vision, Denies memory loss, Denies numbness and Denies tingling Psych Denies anxiety, Denies behavioral changes, Denies depression, Denies memory loss and Denies panic attacks Otis/Lymph Denies easy bleeding and Denies easy bruising Aller/Immun Denies wheezing Physical exam (Primary Care) Vital Signs: Last Vital Signs Temp 97.3 F 03/13/25 16:19 Pulse 78 03/13/25 16:19 BP 140/60 H 03/13/25 16:19 Pulse Ox 96 03/13/25 16:19 Oxygen Delivery Method Room Air 03/13/25 16:19 BMI result Body Mass Index 38.3 Tobacco/Smoking Status: Tobacco use Status Tobacco use date assessed 03/13/25 03/13/25 16:28 Patient Tobacco Use Status Current everyday Tobacco 03/13/25 16:28 Tobacco use type Cigarette 03/13/25 16:28 e-Cigarette/Vaping Use Never Used 03/13/25 16:28 PHQ-9: PHQ-9 Score PHQ-9: Total score 0 03/13/25 16:52 Depression Screening Interpretation: Negative Thrive Assessment: Date of Thrive Assessment Date Thrive assessed 03/11/25 03/13/25 16:28 Currently or been in a relationship where the following occur: I choose not to answer Const General: healthy appearing, no acute distress, alert and awake Nutritional Appearance: well nourished Orientation/consciousness: oriented to person, oriented to place and oriented to time HENMT Ears: TM's normal bilaterally General nose exam: Normal nasal mucous membranes and turbinates present Eyes Conjunctivae: conjunctivae normal Sclerae: sclerae normal Pupils: Equal, round and reactive pupils present Neck Neck: Yes no lymphadenopathy and Yes no JVD Thyroid: Thyroid normal Carotids: no bruits Resp Effort & Inspection: normal respiratory effort and not tachypneic Auscultation: no crackles, no rales, no rhonchi and no wheezes Cardio Rate: regular rate Rhythm: regular rhythm Heart sounds: no murmurs and normal S1 and S2 GI Palpation (GI): Soft to palpation, nontender, no hepatomegaly and no splenomegaly Auscultation: normal bowel sounds Skin General skin exam: no rashes or lesions noted and dry skin Neuro General: oriented to person, oriented to place and oriented to time Cranial nerves: Yes Equal, round and reactive pupils present Speech: No Abnormal speech present Gait exam (Neuro): Normal gait present Motor exam (neuro): no tremor noted Extrem Right upper extremity: full ROM Left upper extremity: full ROM Right lower extremity: full ROM; no edema Left lower extremity: full ROM; no edema Psych Mental Status: mental status grossly normal Speech and movement: Normal speech and movement present Affect: normal affect Attitude: cooperative Thought process: Normal thought process present Coding Level of Care Code Est Pt Level 3 (77146) Diagnoses Migraine without aura and without status migrainosus, not intractable G43.009 Intractability: not intractable Migraine type: without aura Status migrainosus presence: without status migrainosus Headache R51.9 Headache chronicity pattern: acute headache Headache type: unspecified Intractability: not intractable Additional Codes PHQ-9 - 16741 - PHQ-9 Billing: Yes ([id number]) Assessment & Plan Assessment & Plan (1) Migraines: Code(s): G43.909 - Migraine, unspecified, not intractable, without status migrainosus Category: Medical Qualifiers: Intractability: not intractable Migraine type: without aura Status migrainosus presence: without status migrainosus Qualified Code(s): G43.009 - Migraine without aura, not intractable, without status migrainosus Plan: Patient's signs and symptoms most consistent with atypical migraines. Workup thus far with CT of head done at the [place] [facility] without any acute abnormalities. Persistent headaches were addressed by extending the use of Fioricet, balancing effectiveness and potential overuse risks. Imaging options were considered for a detailed assessment should pain persist. (2) Headache: Code(s): R51.9 - Headache, unspecified Category: Medical Qualifiers: Headache chronicity pattern: acute headache Headache type: unspecified Intractability: not intractable Qualified Code(s): R51.9 - Headache, unspecified Plan: As above Orders: Orders MR head/brain wo con 03/13/25 G43.909 - Migraine, unspecified, not intractable, without status migrainosus, R51.9 - Headache, unspecified AMB Hemoglobin A1c 03/13/25 E11.9 - Type 2 diabetes mellitus without complications Medications: New bwretqaqpe-ceersmegowvcy-elfg 50-325-40 mg 1 cap PO Q6H PRN 12 caps 0RF pain 3 days G43.909 - Migraine, unspecified, not intractable, without status migrainosus
[2025-03-13 16:19] VITALS: BP 140/60; PULSE 78; TEMP 36.3; O2SAT 96; BMI 38.3
== END 2025-03-13 17:04 | disposition home or self-care (01) ==
LOC: HO.HMCH 15:58
PROVIDERS: PCP Physician Assistant; Visit Provider Physician Assistant
DX: G43.009 Migraine without aura, not intractable, without status migrainosus (principal); R51.9 Headache, unspecified

== ENCOUNTER → 2025-03-13 15:57 | Outpatient (BNVA) | payer MEDICARE, MEDICAID, SELFPAY | PROVIDERS: PCP Physician Assistant; Visit Provider Physician Assistant | DX: G43.009 Migraine without aura, not intractable, without status migrainosus (principal) | CPT/HCPCS: 96127; 99212 ==

== ENCOUNTER 2025-03-14 08:33 | Day surgery (SDC) | payer MEDICARE, MEDICAID, SELFPAY ==
[2025-03-02 09:49] VITALS: BMI 38.1
[2025-03-14] VITALS (8 sets, daily range): BP systolic 95–135; BP diastolic 49–72; PULSE 83–106; RESP 12–18; TEMP 36.7; O2SAT 92–97
--- NOTE | ~2025-03-14 | FL_ITS ---
EXAMINATION: FL GUIDANCE ONLY HISTORY: L3-5 Decompression, Right, L5 Foraminotomy, Right COMPARISON: None available. TECHNIQUE: Fluoroscopy time: 6.7 seconds. Cumulative Dose: 6.8933 mGy. DAP: 2.3334 mGym2 Images: 1. FINDINGS: A single fluoroscopic spot film of the lumbar spine in the lateral projection demonstrates a probe directed toward the L5 vertebral body from a posterior approach. FL/FL guidance in OR IMPRESSION: Fluoroscopy during procedure. Please see procedure report for additional information. Electronically signed by: Eduard Segura MD 03/14/2025 01:02 PM EDT
[2025-03-14] MEDS: Lactated Ringers 1,000 ML 100 ML IVCONT (09:03)
--- NOTE | 2025-03-14 09:33 | HO.ANESPROP2 ---
Documented by User: Sandra Sheldon NP 03/13/25 12:05 HPI - Anesthesia Eval Consult details Narrative: 54yo F for Right L3-4, Right L4-5 Decompression and Right L5 Foraminotomy PMFSH Active Problems Active Problems: All Active Problems Lumbar radiculopathy, chronic (Acute) Right leg paresthesias (Acute) Bilateral leg pain (Acute) Buzzing in both ears (Acute) Recurrent right knee instability (Acute) MDD (major depressive disorder) (Acute) Lumbar radicular pain (Acute) Ulnar neuropathy (Acute) Claudication (Acute) Lumbar spondylosis (Acute) Right upper extremity numbness (Acute) Diverticulosis of colon (Acute) Tubular adenoma (Acute) Lumbar canal stenosis (Acute) Learning disability (Acute) Chest pain (Acute) BMI 38.0-38.9,adult (Acute) Lumbar pain (Acute) Carbuncle and furuncle of trunk (Acute) Neuropathy of left lower extremity (Acute) Dizziness (Acute) Family history of MS (multiple sclerosis) (Acute) Knee pain, right (Acute) Chronic pain of right wrist (Acute) High ankle sprain of right lower extremity (Acute) Myalgia (Acute) Lateral epicondylitis (Acute) Insomnia (Acute) GERD (gastroesophageal reflux disease) (Acute) Migraines (Acute) Tobacco dependence (Acute) Lumbar spine pain (Acute) Colon cancer screening (Acute) Smoker (Acute) Annual physical exam (Acute) Migraine (Acute) Type 2 diabetes mellitus without complications (Acute) Allergic rhinitis (Acute) Anxiety (Acute) Hyperuricemia (Acute) Asthma (Acute) Obese (Acute) Essential hypertension (Acute) Hyperlipidemia LDL goal <100 (Acute) Hyperlipidemia (Acute) Past Medical History Medical History Anxiety MDD (major depressive disorder) Gout GERD (gastroesophageal reflux disease) Ambulates with cane Smoker Hyperuricemia Asthma Obese Osteoarthritis Trigger finger Carpal tunnel syndrome Hyperlipidemia LDL goal <100 Essential hypertension Hyperlipidemia Cellulitis, umbilical Family History Family History Father Diabetes Hypertension Stroke Heart attack, Onset Age: 50 Mother Multiple sclerosis Brother In good health Son In good health Son In good health Other Patient denies medical problems Family history of problems with anesthesia: No Surgical History Surgical History History of esophagogastroduodenoscopy (EGD) Hx of colonoscopy History of laparoscopic appendectomy History of foot surgery History of carpal tunnel release H/O: hysterectomy History of Problems with Anesthesia: No Social History Social History Household Members: Spouse and Other Housing: Apartment Are you a primary director of critical care to a significant other at home: No Do you presently have visiting nurse or other home services: No Alcohol intake: current Alcohol intake frequency: holidays/special occasions only Alcohol type: beer Patient Tobacco Use Status: Current everyday Tobacco user Tobacco use type: Cigarette Cigarette Packs Per Day: 0.5 Cigarettes Per Day: 5 Years Smoked: 43-started at age 8 e-Cigarette/Vaping Use: Never Used Second Hand Smoke Exposure: Yes Use of substances other than those prescribed or required for medical reasons: No Have you been hit, kicked, punched, or otherwise hurt by someone within the past year? If so, by whom?: No Are you DNR?: No Advance Directives: No Advance Directives Information Provided: Yes Advance Directives on File: No Healthcare Proxy: No Nutrition Risks: Dental problems Poor oral hygiene: Yes (no teeth upper, no denture, 9 teeth lower) service: No Current occupational status: disabled Cognitive needs: No Hearing needs: No Vision needs: Yes (glasses) Meds Allergies Allergy/AdvReac Type Severity Reaction Status Date / Time gabapentin Allergy Intermediate Nausea and Verified 03/14/25 08:51 Vomiting morphine [Morphine] Allergy Intermediate VOMITING Verified 03/14/25 08:51 oxycodone [Percocet] Allergy Intermediate Vomiting Verified 03/14/25 08:51 methocarbamol AdvReac Intermediate GI upset Verified 03/14/25 08:51 Home Medications ?Medication ?Instructions ?Recorded ?Confirmed ?Last Taken ?Type multivitamin 1 tab PO DAILY 07/31/22 03/13/25 Unknown History albuterol sulfate 90 mcg/actuation 1 puff inhalation QID PRN 03/01/25 03/13/25 03/14/25 History aerosol inhaler (Ventolin HFA) Shortness Of Breath Or Wheezing omega-3 fatty acids 500 mg capsule 500 mg PO DAILY 03/01/25 03/13/25 03/06/25 History tizanidine 2 mg tablet 2 mg PO Q8H PRN muscle spasticity 03/01/25 03/13/25 Unknown History Exam Height,Weight and Vital Signs: Height 5 ft 3 in Weight 97.522 kg Pertinent Lab Results Pertinent Lab Results: Laboratory Tests 03/02/25 03/02/25 12:10 12:11 WBC 7.4 Hgb 13.2 Hct 39.6 Plt Count 246 Sodium 144 Potassium 4.0 Chloride 108 Carbon Dioxide 26 BUN 22 H Creatinine 0.73 Narrative Narrative: EKG 2023 Vent. Rate : 071 BPM Atrial Rate : 071 BPM P-R Int : 152 ms QRS Dur : 080 ms QT Int : 396 ms P-R-T Axes : 072 001 037 degrees QTc Int : 430 ms Normal sinus rhythm Normal ECG When compared with ECG of 04-SEP-2012 10:03, Questionable change in QRS axis Assessment and Plan Assessment Anesthesia Assessment: Chart Reviewed Final Anesthetic Review Family History of Problems with Anesthesia: No History of Problems with Anesthesia: No Documented by User: Marianna Cabrera DO 03/14/25 09:34 [facility] Past Medical History Medical History Anxiety MDD (major depressive disorder) Gout GERD (gastroesophageal reflux disease) Ambulates with cane Smoker Hyperuricemia Asthma Obese Osteoarthritis Trigger finger Carpal tunnel syndrome Hyperlipidemia LDL goal <100 Essential hypertension Hyperlipidemia Cellulitis, umbilical Family History Family History Father Diabetes Hypertension Stroke Heart attack, Onset Age: 50 Mother Multiple sclerosis Brother In good health Son In good health Son In good health Other Patient denies medical problems Family history of problems with anesthesia: No Surgical History Surgical History History of esophagogastroduodenoscopy (EGD) Hx of colonoscopy History of laparoscopic appendectomy History of foot surgery History of carpal tunnel release H/O: hysterectomy History of Problems with Anesthesia: No Social History Social History Household Members: Spouse and Other Housing: Apartment Are you a primary director of critical care to a significant other at home: No Do you presently have visiting nurse or other home services: No Alcohol intake: current Alcohol intake frequency: holidays/special occasions only Alcohol type: beer Patient Tobacco Use Status: Current everyday Tobacco user Tobacco use type: Cigarette Cigarette Packs Per Day: 0.5 Cigarettes Per Day: 5 Years Smoked: 43-started at age 8 e-Cigarette/Vaping Use: Never Used Second Hand Smoke Exposure: Yes Use of substances other than those prescribed or required for medical reasons: No Have you been hit, kicked, punched, or otherwise hurt by someone within the past year? If so, by whom?: No Are you DNR?: No Advance Directives: No Advance Directives Information Provided: Yes Advance Directives on File: No Healthcare Proxy: No Nutrition Risks: Dental problems Poor oral hygiene: Yes (no teeth upper, no denture, 9 teeth lower) service: No Current occupational status: disabled Cognitive needs: No Hearing needs: No Vision needs: Yes (glasses) Meds Allergies Allergy/AdvReac Type Severity Reaction Status Date / Time gabapentin Allergy Intermediate Nausea and Verified 03/14/25 08:51 Vomiting morphine [Morphine] Allergy Intermediate VOMITING Verified 03/14/25 08:51 oxycodone [Percocet] Allergy Intermediate Vomiting Verified 03/14/25 08:51 methocarbamol AdvReac Intermediate GI upset Verified 03/14/25 08:51 Home Medications ?Medication ?Instructions ?Recorded ?Confirmed ?Last Taken ?Type multivitamin 1 tab PO DAILY 07/31/22 03/13/25 Unknown History albuterol sulfate 90 mcg/actuation 1 puff inhalation QID PRN 03/01/25 03/13/25 03/14/25 History aerosol inhaler (Ventolin HFA) Shortness Of Breath Or Wheezing omega-3 fatty acids 500 mg capsule 500 mg PO DAILY 03/01/25 03/13/25 03/06/25 History tizanidine 2 mg tablet 2 mg PO Q8H PRN muscle spasticity 03/01/25 03/13/25 Unknown History Exam Exam Date and Time: 03/14/25 0930 Height,Weight and Vital Signs: Height 5 ft 3 in Weight 97.522 kg Vital Signs Temperature 98.1 F 03/14/25 09:19 Pulse Rate 83 03/14/25 09:19 Respiratory Rate 18 03/14/25 09:19 Blood Pressure 135/72 03/14/25 09:19 Pulse Oximetry 97 03/14/25 09:19 Oxygen Delivery Method Room Air 03/14/25 09:19 Temperature 98.1 F 03/14/25 09:19 Pulse Rate 83 03/14/25 09:19 Respiratory Rate 18 03/14/25 09:19 Blood Pressure 135/72 03/14/25 09:19 Pulse Oximetry 97 03/14/25 09:19 Oxygen Delivery Method Room Air 03/14/25 09:19 Airway Mallampati Class: II TM Dist: <=3cm Neck ROM: Limited Loose/Missing/Broken Teeth: Yes (edentulous top jaw, multiple missing teeth bottom jaw) Heart: S1S2 Lungs: CTAB Assessment and Plan Assessment Anesthesia Assessment: Anesthesia Plan Discussed and Chart Reviewed Final Anesthetic Review Family History of Problems with Anesthesia: No History of Problems with Anesthesia: No NPO: Yes ASA Class: III Final Preanesthetic Review: No Changes in Pt Med Stat, Meds/Allgs Chart Reviewed, Consent Obtained/Reviewed and Anes Risks/Benef Reviewed Patient Risk: Intermediate Procedure Risk: Intermediate Anesthetic Plan Anesthetic Plan: GA and Agree w/ Assess. and Plan Disposition: Standard PACU
--- NOTE | 2025-03-14 09:49 | MHC.SHP ---
Pre-Procedural Eval Section A - 24 Hr Update-Section A only Date of Service: 03/14/25 The patient is an INPATIENT: No Changes since office visit: No Cold of Flu in the past 2 weeks, No New Medical Problems, No Changes in Medication and No Patient answered all questions The patient has been examined within 24 hours of the surgical procedure. The History & Physical has been completed within 30 days and I have reviewed it.: No Section B - Complete if H&P > 30 days Chief Complaint: Radiculopathy, lumbar region Allergies: Allergies Allergy/AdvReac Type Severity Reaction Status Date / Time gabapentin Allergy Intermediate Nausea and Verified 03/14/25 08:51 Vomiting morphine [Morphine] Allergy Intermediate VOMITING Verified 03/14/25 08:51 oxycodone [Percocet] Allergy Intermediate Vomiting Verified 03/14/25 08:51 methocarbamol AdvReac Intermediate GI upset Verified 03/14/25 08:51 Review of Systems Sugical H&P ROS: Negative: Constitution, Cardiovascular, Respiratory, Neurological, Psychiatric, Hem-Onc, Allergic/Immunologic, Gastrointestinal, Genitourinary, Musculoskeletal, Integumentary, Endocrine and Eyes/Ears/Nose/Throat Exam Surgical H&P Exam: Normal: HEENT, Normal: Heart, Normal: Lungs, Normal: Extremities, Normal: Abdomen, Normal: Skin and Normal: Neurological (awake, alert,oriented x 3 ) Plan Diagnosis/Plan: Unchanged right L3-4, L4-5 decompression, right L5 foraminotomy Time Spent With Patient Time: Total time managing care of this patient today __5__ minutes.
[2025-03-14] MEDS: ceFAZolin Sodium/Dextrose,Iso 2 GM/50 ML PIGGYBACK IV (10:25)
--- NOTE | 2025-03-14 12:15 | W.PM.OPN ---
Operative Note Operative Note Date of Service: 03/14/25 Narrative: Preoperative Diagnosis: L3-4, L4-5 spinal stenosis/lateral recess stenosis/neural foraminal stenosis Operation: right L3-4, L4-5 Laminotomy, Partial facetectomy and L5 foraminotomy with use of microscope Consent Informed Consent was obtained for this operation. I have explained the nature, purpose and benefits of the operation. I have discussed the risks and benefit of the operation including possible complications or adverse events with patient/family. Alternative(s) were discussed with the patient with their relative benefits and risks as well as the consequences of not accepting the operation were included in obtaining consent. 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 MRI shows extensive lumbar degenerative disc disease and degenerative changes with severe spinal stenosis at L3-4 and L4-5 and moderate right L5 foraminal stenosis. She was offered a unilateral decompression L3-4, L4-5 and an L5 foraminotomy. The procedure complications were explained. The patient was consented. The patient was brought to the operating room and endotracheally intubated. The patient was turned in prone position on the Enrique frame. Prep and drape was done followed by timeout. The Physician assistant chief engineer provided access. A mid lumbar incision was made followed by release of the paravertebral muscle on the right side to expose the right L3, L4 and L5 lamina and facet joints. An intraoperative x-ray was obtained to confirm the correct level. The microscope was brought in. I took over the procedure. The high-speed drill was used to do a right L3-4 laminotomy until flavum ligament was reached. A #2 Kerrison was used to expand the laminotomy near flush to the pedicle and to include a partial facetectomy. The flavum ligament was opened and resected with a #3 Kerrison to decompress the underlying thecal sac. The flavum ligament was removed to decompress the lateral recess and the exiting L4 nerve root. This relieved the severe stenosis. Then attention was turned to the L4-5 level. Again severe stenosis was encountered. A right L4-5 laminotomy was done followed by a partial facetectomy. The L5 nerve root was identified and followed into the lateral recess where it was decompressed an into the foramen where a foraminotomy was performed.A long nerve hook could be easily passed along the medial side of the pedicle and into the foramen as a sign of adequate decompression. I do think that the outer layer of the dura was partially removed at the origin of the L5 nerve root. Therefore precautionary a piece of DuraGen was left behind. Tissue seal was used to help with the diffuse oozing.The microscope was removed. Hemostasis was done. The physician assistant chief engineer close the incision in 2 layers. Steri-Strips were used to approximate incision. An OpSite with Tegaderm was used to cover the incision. All sponge needle counts were correct. Patient was extubated and transported in stable is to recovery room. Anesthesia: General Estimated Blood Loss (ml): 50 mL Complications: None Duration of Surgery: 90 Minutes Postoperative Plan: Discharge to home
--- NOTE | 2025-03-14 12:23 | P.DS_ITS ---
DS: Providers Provider Date of Service: 03/14/25 Date of discharge: 03/14/25 Primary care physician: Festus Lang PA-C Admitting clinician: Juan Diego Bull DS: Diagnosis Discharge Diagnosis (1) Lumbar radiculopathy, chronic: Status: Acute DS: Summary Time Attestation Discharge Coordination Time (in mins): 6 Quality: Safe Use of Opioids Does Pt have an Active Cancer Diagnosis on the Problem List?: No Quality: Stroke Does the patient have a stroke diagnosis?: No Physical Exam Vital Signs: Vital Signs: Last Vital Signs Temp 98.1 F 03/14/25 09:19 Pulse 83 03/14/25 09:19 Resp 18 03/14/25 09:19 BP 135/72 03/14/25 09:19 Pulse Ox 97 03/14/25 09:19 O2 Del Method Room Air 03/14/25 09:19 BMI result Body Mass Index 38.1 Discharge Plan Discharge Patient Disposition: Home, Self-Care Referrals: Festus Lang PA-C [Primary Care Provider] - 1 Week Discharge Medications: New hydrocodone-acetaminophen 5-300 mg tablet See Rx Instructions .ROUTE .COMPLEX Qty: 30 0RF Rx Instructions: 1-2 tablets po q6 hours prn pain; Partial Fill upon patient request. Continued OneTouch Verio test strips Strip 1 strip miscellaneous DAILY Qty: 50 0RF acetaminophen 650 mg tablet extended release 650 mg PO Q12H PRN (Reason: pain) 10 Days Qty: 20 0RF diclofenac sodium 75 mg tablet,delayed release (DR/EC) 75 mg PO BID 90 Days Qty: 180 2RF baclofen 10 mg tablet 10 mg PO BID 90 Days Qty: 180 2RF magnesium oxide 250 mg magnesium tablet 250 mg PO DAILY 90 Days Qty: 90 2RF clonidine HCl 0.3 mg tablet 0.3 mg PO BEDTIME Qty: 90 2RF allopurinol 100 mg tablet 100 mg PO DAILY Qty: 30 11RF cyanocobalamin (vitamin B-12) [Vitamin B-12] 1,000 mcg tablet 1,000 mcg PO DAILY Qty: 90 1RF losartan 50 mg tablet 50 mg PO DAILY Qty: 90 5RF montelukast 10 mg tablet 10 mg PO DAILY 90 Days Qty: 90 8RF atorvastatin 40 mg tablet 40 mg PO DAILY 90 Days Qty: 90 1RF pantoprazole 40 mg tablet,delayed release (DR/EC) 40 mg PO DAILY Qty: 90 1RF (DME) rollator walker with seat See Rx Instructions .Route .MEDSUPPLY Qty: 1 0RF Rx Instructions: As directed trazodone 100 mg tablet 400 mg PO BEDTIME 30 Days Qty: 120 6RF tizanidine 2 mg tablet 2 mg PO Q8H PRN (Reason: muscle spasticity) albuterol sulfate [Ventolin HFA] 90 mcg/actuation HFA aerosol inhaler 1 puff inhalation QID PRN (Reason: Shortness Of Breath Or Wheezing) omega-3 fatty acids 500 mg Capsule 500 mg PO DAILY ketorolac 10 mg tablet 10 mg PO TID PRN (Reason: pain) 5 Days Qty: 15 0RF Rx Instructions: given IV toradol in department multivitamin Tablet 1 tab PO DAILY hydrocodone-acetaminophen 5-325 mg tablet 1 tab PO BID PRN (Reason: pain) 4 Days Qty: 8 0RF Rx Instructions: Partial Fill upon patient request. ergotamine-caffeine 1-100 mg tablet 1 tab PO Q30M PRN (Reason: migraine headache) 30 Days Qty: 30 7RF Rx Instructions: do not exceed 6 mg per day or 10 mg per wk [id number]-[id number] 50-325-40 mg capsule 1 cap PO Q6H PRN (Reason: pain) 3 Days Qty: 12 0RF Discharge Orders: Discharge Order (Routine); Ordered 03/14/25 Ordered By: Ac Rosario Diet: Advance to usual diet Activity on Discharge: As tolerated Activity Restrictions/Additional Instructions: After your spinal surgery we ask you to observe the following restrictions/guidelines: Activity: It is normal to feel some discomfort as you increase your activity, but that will improve with time. We ask you avoid heavy lifting or acitivities that cause pain. As a general rule, 8lbs is a safe limit for lifting right after surgery. Walk as much as you feel comfortable but not to exhaustion. You will feel extra tired the first few days after surgery. Stay well hydrated. It is OK to walk up and down stairs You may return to driving when you are off narcotics (such as vicodin, oxycodone, dilaudid, etc), and you are back to normal functional capacity. If you have any concerns please check with office before driving. Return to work is specific to each patient and each surgery, so please speak with your doctor/PA at first follow up. Please bring paperwork such as FMLA at that time if you need it filled out. Medications: For optimum pain control, it is best to start with a combination of 500 mg of Tylenol every 4 hours with 600 mg of Motrin every 8 hours, and use narcotics as needed in between for breakthrough pain. We will give you a short supply of narcotics after surgery (usually one weeks worth). If you need more please call the office but do not use more than prescribed. You will need to give our office 48 hours notice if you need narcotics refilled and we do not fill narcotics on weekends or evenings. If you are on a narcotic, it is a good idea to take a stool softener such as colace or senna to avoid constipation If you take blood thinner such as aspirin, Plavix, Coumadin, Effient, Eliquis etc for conditions such as Afib, DVT, Pulmonary embolus, coronary disease, stents etc please speak with your surgeon about specific details as to when you can resume these medications. You can resume NSAIDs on post op day 1 (eg: Motrin, Naproxen, etc). Follow up: Please call the office, , after surgery to arrange a 3 week follow up for wound check. Wound Care: You may remove your dressing on the first day after surgery. ?You may ?leave open to air. Please do not remove the steri strips underneath. they will fall off on their own in one week. IT IS NORMAL FOR THE WOUND TO OOZE OR BE BLOODY FOR A FEW DAYS AFTER SURGERY. ?IF THIS HAPPENS JUST PLACE NEW DRESSING OVER IT TO AVOID STAINING CLOTHES. You may shower on post op day # 1 We ask that you do not let the water soak the wound. If it does get wet, just towel dry lightly. Please do not scrub your incision or place any type of chemical/ointment on the wound. No tub baths, pools or jacuzzis for one month. If you have any leaking or redness from your wound, or fevers, please call office Print Language: Latvian
--- NOTE | 2025-03-14 13:06 | P.DS_ITS ---
DS: Providers Provider Date of Service: 03/14/25 Date of discharge: 03/14/25 Primary care physician: Festus Lang PA-C DS: Diagnosis Discharge Diagnosis (1) Lumbar radiculopathy, chronic: Status: Acute DS: Summary Time Attestation Discharge Coordination Time (in mins): 7 Quality: Safe Use of Opioids Does Pt have an Active Cancer Diagnosis on the Problem List?: No Quality: Stroke Does the patient have a stroke diagnosis?: No Physical Exam Vital Signs: Vital Signs: Last Vital Signs Temp 98.0 F 03/14/25 12:34 Pulse 91 03/14/25 13:00 Resp 14 03/14/25 13:00 BP 102/49 L 03/14/25 13:00 Pulse Ox 95 03/14/25 13:00 O2 Del Method Simple Mask 03/14/25 13:00 O2 Flow Rate 6 03/14/25 13:00 BMI result Body Mass Index 38.1 Discharge Plan Discharge Patient Disposition: Home, Self-Care Referrals: Festus Lang PA-C [Primary Care Provider] - 1 Week Discharge Medications: New hydrocodone-acetaminophen 5-325 mg tablet See Rx Instructions .ROUTE .COMPLEX Qty: 30 0RF Rx Instructions: 1-2 tabs po q6 hours prn pain; Partial Fill upon patient request. Continued OneTouch Verio test strips Strip 1 strip miscellaneous DAILY Qty: 50 0RF acetaminophen 650 mg tablet extended release 650 mg PO Q12H PRN (Reason: pain) 10 Days Qty: 20 0RF diclofenac sodium 75 mg tablet,delayed release (DR/EC) 75 mg PO BID 90 Days Qty: 180 2RF baclofen 10 mg tablet 10 mg PO BID 90 Days Qty: 180 2RF magnesium oxide 250 mg magnesium tablet 250 mg PO DAILY 90 Days Qty: 90 2RF clonidine HCl 0.3 mg tablet 0.3 mg PO BEDTIME Qty: 90 2RF allopurinol 100 mg tablet 100 mg PO DAILY Qty: 30 11RF cyanocobalamin (vitamin B-12) [Vitamin B-12] 1,000 mcg tablet 1,000 mcg PO DAILY Qty: 90 1RF losartan 50 mg tablet 50 mg PO DAILY Qty: 90 5RF montelukast 10 mg tablet 10 mg PO DAILY 90 Days Qty: 90 8RF atorvastatin 40 mg tablet 40 mg PO DAILY 90 Days Qty: 90 1RF pantoprazole 40 mg tablet,delayed release (DR/EC) 40 mg PO DAILY Qty: 90 1RF (DME) rollator walker with seat See Rx Instructions .Route .MEDSUPPLY Qty: 1 0RF Rx Instructions: As directed trazodone 100 mg tablet 400 mg PO BEDTIME 30 Days Qty: 120 6RF tizanidine 2 mg tablet 2 mg PO Q8H PRN (Reason: muscle spasticity) albuterol sulfate [Ventolin HFA] 90 mcg/actuation HFA aerosol inhaler 1 puff inhalation QID PRN (Reason: Shortness Of Breath Or Wheezing) omega-3 fatty acids 500 mg Capsule 500 mg PO DAILY ketorolac 10 mg tablet 10 mg PO TID PRN (Reason: pain) 5 Days Qty: 15 0RF Rx Instructions: given IV toradol in department multivitamin Tablet 1 tab PO DAILY hydrocodone-acetaminophen 5-325 mg tablet 1 tab PO BID PRN (Reason: pain) 4 Days Qty: 8 0RF Rx Instructions: Partial Fill upon patient request. ergotamine-caffeine 1-100 mg tablet 1 tab PO Q30M PRN (Reason: migraine headache) 30 Days Qty: 30 7RF Rx Instructions: do not exceed 6 mg per day or 10 mg per wk [id number]-wgajmobzyksvt-gvph 50-325-40 mg capsule 1 cap PO Q6H PRN (Reason: pain) 3 Days Qty: 12 0RF Discharge Orders: Discharge Order (Routine); Ordered 03/14/25 Ordered By: Ac Rosario Diet: Advance to usual diet Activity on Discharge: As tolerated Activity Restrictions/Additional Instructions: After your spinal surgery we ask you to observe the following restrictions/guidelines: Activity: It is normal to feel some discomfort as you increase your activity, but that will improve with time. We ask you avoid heavy lifting or acitivities that cause pain. As a general rule, 8lbs is a safe limit for lifting right after surgery. Walk as much as you feel comfortable but not to exhaustion. You will feel extra tired the first few days after surgery. Stay well hydrated. It is OK to walk up and down stairs You may return to driving when you are off narcotics (such as vicodin, oxycodone, dilaudid, etc), and you are back to normal functional capacity. If you have any concerns please check with office before driving. Return to work is specific to each patient and each surgery, so please speak with your doctor/PA at first follow up. Please bring paperwork such as FMLA at that time if you need it filled out. Medications: For optimum pain control, it is best to start with a combination of 500 mg of Tylenol every 4 hours with 600 mg of Motrin every 8 hours, and use narcotics as needed in between for breakthrough pain. We will give you a short supply of narcotics after surgery (usually one weeks worth). If you need more please call the office but do not use more than prescribed. You will need to give our office 48 hours notice if you need narcotics refilled and we do not fill narcotics on weekends or evenings. If you are on a narcotic, it is a good idea to take a stool softener such as colace or senna to avoid constipation If you take blood thinner such as aspirin, Plavix, Coumadin, Effient, Eliquis etc for conditions such as Afib, DVT, Pulmonary embolus, coronary disease, stents etc please speak with your surgeon about specific details as to when you can resume these medications. You can resume NSAIDs on post op day 1 (eg: Motrin, Naproxen, etc). Follow up: Please call the office, , after surgery to arrange a 3 week follow up for wound check. Wound Care: You may remove your dressing on the first day after surgery. ?You may ?leave open to air. Please do not remove the steri strips underneath. they will fall off on their own in one week. IT IS NORMAL FOR THE WOUND TO OOZE OR BE BLOODY FOR A FEW DAYS AFTER SURGERY. ?IF THIS HAPPENS JUST PLACE NEW DRESSING OVER IT TO AVOID STAINING CLOTHES. You may shower on post op day # 1 We ask that you do not let the water soak the wound. If it does get wet, just towel dry lightly. Please do not scrub your incision or place any type of chemical/ointment on the wound. No tub baths, pools or jacuzzis for one month. If you have any leaking or redness from your wound, or fevers, please call offic e Print Language: Micronesian
== END 2025-03-14 14:20 | disposition home or self-care (01) ==
PROVIDERS: PCP Physician Assistant; Visit Provider Neurological Surgery
PROC: (CPT 63047; principal; 2025-03-14 10:30)
DX: M48.062 Spinal stenosis, lumbar region with neurogenic claudication (principal); M54.16 Radiculopathy, lumbar region; M51.369 Other intervertebral disc degeneration, lumbar region without mention of lumbar back pain or lower extremity pain
CPT/HCPCS: 63047; 63048; C1763; C9250; J0131; J0690; J1100; J2003; J2250; J2405; J2704; J3010

== ENCOUNTER → 2025-03-14 08:33 | Outpatient (BNV) | payer MEDICARE, MEDICAID, SELFPAY | PROVIDERS: PCP Physician Assistant; Visit Provider Neurological Surgery | DX: M48.062 Spinal stenosis, lumbar region with neurogenic claudication (principal); M54.16 Radiculopathy, lumbar region | CPT/HCPCS: 63047; 63048; 99499 ==

== ENCOUNTER 2025-03-21 14:43 | Outpatient (AMB) | payer MEDICARE, MEDICAID, SELFPAY ==
--- NOTE | 2025-03-21 14:48 | A.SPINEOV_ITS ---
Intake Visit Reasons: posterior R buttocks pain perineal numbness Intake Note: Ms. Carey is here today c/o posterior right buttocks pain and perineal numbness. Allergies gabapentin Allergy (Intermediate, Verified 03/14/25 08:51) Nausea and Vomiting morphine [Morphine] Allergy (Intermediate, Verified 03/14/25 08:51) VOMITING oxycodone [Percocet] Allergy (Intermediate, Verified 03/14/25 08:51) Vomiting methocarbamol Adverse Reaction (Intermediate, Verified 03/14/25 08:51) GI upset Assessment & Plan Assessment & Plan (1) Lumbar radiculopathy, chronic: Code(s): M54.16 - Radiculopathy, lumbar region Category: Medical Plan Procedure: Right L3-4, L4-5 Laminotomy, Partial facetectomy and L5 foraminotomy Vickie is a pleasasnt 54 year old female who underwent right L3-4, L4-5 Laminotomy, Partial facetectomy and L5 foraminotomy with Dr. Bull on 03/14/25. She reports that her right sided leg pain has worsened since surgery, and also reports perineal numbness, and right foot numbness since her surgery. To recap she reported severe pain in her right buttock going into her posterolateral thigh ending at about her calf level prior to surgery. When asked about her perineal numbness she states this has been ongoing since surgery, and further states that she has no sensation to touch, and no sensation when wiping. She has not been sleeping at night and feels her quality of life has significantly diminished as a result of both this new pain and the new numbness. I sent her for a set of Flexion/ Extension X-rays during this visit which do not show evidence of gross instability. The patient is in obvious agony on examination in his visibly crying when attempting to get up onto the examination table. The patient has full 5/5 strength in her lower extremities. She does elicit quite a bit of pain to full strength testing on the right side. (+) right-sided straight leg raise. I would like to send the patient for a stat lumbar MRI with gadolinium to evaluate for any new or worsening nerve compression since her surgery. I have a fairly high clinical suspicion of a disc herniation given her severe pain accompanied by numbness, however vertebral body instability causing severe nerve compression can not be ruled out either. In the interim I will send in a prescription for Dilaudid 1/2 tablet every 4-6 hours p.r.n. pain, as her current regimen of Vicodin is not providing her with any pain relief. Sumeet Bull MD,PhD [facility] Orders: Orders XR lumbar spine 4V min Today M54.16 - Radiculopathy, lumbar region MR lumbar spine wo/w con Today M54.16 - Radiculopathy, lumbar region Medications: New hydromorphone Take 1/2 tablet orally every 4-6 hours PRN; Partial Fill upon patient request. 30 tabs 0RF pain Coding Level of Care Code Global (39631) Diagnoses Lumbar radiculopathy, chronic M54.16
== END 2025-03-21 15:47 | disposition home or self-care (01) ==
LOC: HO.HNS 14:43
PROVIDERS: PCP Physician Assistant; Visit Provider Physician Assistant
DX: M54.16 Radiculopathy, lumbar region (principal)
CPT/HCPCS: 99024

== ENCOUNTER 2025-03-21 14:43 | Outpatient (REF) | payer MEDICARE, MEDICAID, SELFPAY ==
--- NOTE | ~2025-03-21 | XR_ITS ---
EXAMINATION: XR LUMBAR SPINE 4 OR MORE VIEWS HISTORY: M54.16 - Radiculopathy, lumbar region COMPARISON: Comparison is made with the prior examination dated 11/05/2024. FINDINGS: AP, and neutral, flexion, and extension lateral views of the lumbar spine are submitted. The examination is limited by patient motion. Osseous mineralization is normal. There is mild to moderate dextroscoliosis. The vertebral bodies maintain normal height without evidence of fracture. There is retrolisthesis of L2 on L3 and L3 on L4. There is no significant change with flexion or extension. There is diffuse severe degenerative disc disease with disc space narrowing and osteophyte formation. There is osteoarthritis of the facet joints. The visualized paraspinal soft tissues are unremarkable. XR/XR lumbar spine 4V min IMPRESSION: Mild to moderate dextroscoliosis. Diffuse severe degenerative disc disease. Slight retrolisthesis of L2 on L3 and L3 on L4 without significant change in flexion or extension. Electronically signed by: Eduard Segura MD 03/22/2025 08:19 AM EDT
== END 2025-03-21 14:44 | disposition home or self-care (01) ==
LOC: HO.HOSX 14:43
PROVIDERS: PCP Physician Assistant; Visit Provider Physician Assistant
DX: M54.16 Radiculopathy, lumbar region (principal)
CPT/HCPCS: 72110; 99212

== ENCOUNTER → 2025-03-21 15:22 | Outpatient (BNV) | payer MEDICARE, MEDICAID, SELFPAY | PROVIDERS: PCP Physician Assistant; Visit Provider Radiology Diagnostic Radiology | DX: M41.86 Other forms of scoliosis, lumbar region (principal); M51.369 Other intervertebral disc degeneration, lumbar region without mention of lumbar back pain or lower extremity pain | CPT/HCPCS: 72110 ==

== ENCOUNTER → 2025-03-23 14:59 | Outpatient (BNV) | payer MEDICARE, MEDICAID, SELFPAY | PROVIDERS: PCP Physician Assistant; Visit Provider Radiology Diagnostic Radiology | DX: M51.369 Other intervertebral disc degeneration, lumbar region without mention of lumbar back pain or lower extremity pain (principal); M48.061 Spinal stenosis, lumbar region without neurogenic claudication | CPT/HCPCS: 72158 ==

== ENCOUNTER 2025-03-23 15:01 | Outpatient (REF) | payer MEDICARE, MEDICAID, SELFPAY ==
--- NOTE | ~2025-03-23 | MR_ITS ---
CLINICAL HISTORY: M54.16 - Radiculopathy, lumbar region --- Additional Notes or Special Instructions: Patient has severe right sided radiculopathy which has worsened since . Lumbar spine surgery 1 wk ag o MR lumbar spine with and without gadolinium Comparison: MR/SR - MR LUMBAR SPINE WO CON - 01/01/24 09:21 EDT Findings: Normal alignment. No acute fracture or pathologic bone lesion. Severe degenerative type endplate marrow changes at L2-L3 and milder similar changes at L3-L4. Cauda equina and conus medullaris within normal limits. Interval right-sided laminotomy at L3-L4 and L4-L5. 7 x 6 x 5 cm fluid collection within the posterior soft tissues at the site of recent surgery. This is loculated and may be partially walled-off with mild peripheral enhancement. L1-L2: Congenital shortening of the pedicles. Mild broad-based disc bulge. Mild facet osteoarthritis. Mild central canal stenosis. No significant narrowing of neural foramina. No significant change since prior study. L2-L3: Congenital shortening of the pedicles. Moderate broad-based disc bulge. Moderate facet osteoarthritis. Moderate central canal stenosis. Moderate stenosis of the left neural foramen. No significant change since prior study. L3-L4: Congenital shortening of the pedicles. Interval right laminotomy. Moderate broad-based disc bulge. Moderate facet osteoarthritis. Moderate central canal stenosis. Moderate stenosis of the left neural foramen. Mild stenosis of the right neural foramen. L4-L5: Congenital shortening of the pedicles. Interval right laminotomy. Mild broad-based disc bulge. Moderately severe facet osteoarthritis. Mild central canal stenosis. Mild stenosis of the right neural foramen. L5-S1: Congenital shortening of the pedicles. Mild broad-based disc bulge. Severe bilateral facet osteoarthritis. Mild central canal stenosis. Moderate stenosis of the right neural foramen. Paraspinous musculature intact. IMPRESSION: 1. Interval right-sided laminotomy at L3-L4 and L4-L5. 7 x 6 x 5 cm fluid collection within the posterior soft tissues at the site of recent surgery. This may represent a simple postoperative collection. Infection is also in the differential. 2. Severe degenerative changes of the lumbar spine with significant stenosis at multiple levels as described above. This document has been electronically signed by: Mirian Pinzon MD on 03/23/2025 16:41:20
[2025-03-23] MEDS: gadobutroL 10 ML VIAL IVPUSH (16:13)
== END 2025-03-23 15:02 | disposition home or self-care (01) ==
LOC: HO.MRI 15:01
PROVIDERS: PCP Physician Assistant; Visit Provider Physician Assistant
DX: M54.16 Radiculopathy, lumbar region (principal)
CPT/HCPCS: 72158; A9585

== ENCOUNTER 2025-04-07 14:58 | Outpatient (AMB) | payer MEDICARE, MEDICAID, SELFPAY ==
--- NOTE | 2025-04-07 15:09 | A.SPINEOV_ITS ---
Intake Visit Reasons: incision check and pain Intake Note: Ms. Carey is here today for an incision check and pain. Hand Binder Stripper Required: No Allergies gabapentin Allergy (Intermediate, Verified 03/14/25 08:51) Nausea and Vomiting morphine (Morphine) Allergy (Intermediate, Verified 03/14/25 08:51) VOMITING oxycodone (Percocet) Allergy (Intermediate, Verified 03/14/25 08:51) Vomiting methocarbamol Adverse Reaction (Intermediate, Verified 03/14/25 08:51) GI upset Assessment & Plan Assessment & Plan (1) Lumbar spine pain: Code(s): M54.5 - Low back pain Category: Medical Plan Mrs Carey came back in today in the office for follow-up. We had been following her for a postoperative numbness in her right leg with pain behind her right knee as well as some numbness in the peroneal region that developed after surgery. Dr. 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 The pain that she was having behind her right knee seems to have gone away in her preoperative leg pain is gone. She still has numbness in the perineum as well as in her right foot. She developed some dehiscence of her wound earlier this week her reports. It kept opening up over the next few days and then it started leaking a few days ago a brown serous type liquid. No clear CSF liquid was seen. She has not been having fevers, but does report some chills. I examined her today, her blood pressure was 110/60, pulse was 86 and regular. She is uncomfortable but able to stand up and walk independently. Strength in the lower extremities is full. She has no meningismus. Her wound has multiple openings from top to bottom with small bridges of scar tissue holding it together. I was able to take a culture from deep inside the wound. I could not express any pus, but did see the brown serous leakage on the cotton tip probe of the culture and there was some on a bandage that I removed when I e xamined her wound. I did not see any evidence of jossue pus. I am going to start her on Bactrim as a precaution against staph aureus, will have Sumeet Arambula check the cultures over the weekend and titrate antibiotics accordingly if the speciation are completed. I warned the patient if she starts to develop any rapid heart rate, feelings of dizziness or fevers that she should report to the emergency room. We also talked about the fact that she develops any weakness in her legs or bowel or bladder incontinence she should report to the emergency room. I will update Dr. Bull on the patient's status. Ac Bull MD, PhD [facility] Medications: New sulfamethoxazole-trimethoprim 800-160 mg (Bactrim DS) 1 tab PO BID 30 tabs 0RF sulfamethoxazole-trimethoprim 800-160 mg (Bactrim DS) 1 tab PO BID 30 tabs 0RF Coding Level of Care Code Global (87335) Diagnoses Lumbar spine pain M54.5
== END 2025-04-07 16:29 | disposition home or self-care (01) ==
LOC: HO.HNS 14:59
PROVIDERS: PCP Physician Assistant; Visit Provider Physician Assistant
DX: M54.50 Low back pain, unspecified (principal)
CPT/HCPCS: 99024

== ENCOUNTER 2025-04-07 14:58 | Outpatient (REF) | payer MEDICARE, MEDICAID, SELFPAY | END 2025-04-07 14:59 | disposition home or self-care (01) | LOC: HO.LNP 14:58 | PROVIDERS: PCP Physician Assistant; Visit Provider Physician Assistant | DX: M54.50 Low back pain, unspecified (principal) | CPT/HCPCS: 87070; 87077; 87186; 87205; 99212 ==

== ENCOUNTER 2025-04-08 13:07 | Inpatient (IN) | payer MEDICARE, MEDICAID, SELFPAY ==
[2025-04-08] VITALS (12 sets, daily range): BP systolic 85–122; BP diastolic 39–70; PULSE 92–116; RESP 16–18; TEMP 36.3–37.7; O2SAT 91–96; BMI 39.4; BMI 40.5
--- NOTE | ~2025-04-08 | US_ITS ---
CLINICAL HISTORY: pain Venous duplex ultrasound bilateral lower extremity Comparison: None provided Findings: The visualized deep veins are fully compressible with normal Doppler color flow and spectral tracings. No popliteal cyst. IMPRESSION: 1. Negative for bilateral lower extremity deep vein thrombosis. This document has been electronically signed by: Willian Tan MD on 04/16/2025 09:02:40
--- NOTE | ~2025-04-08 | MR_ITS ---
CLINICAL HISTORY: ?Spinal abscess vs osteo MR lumbar spine with and without intravenous contrast Comparison: MRI of the lumbar spine from 03/13/2025 Findings: Worsening STIR signal at L1 through L3 vertebral bodies with new abnormal T2 and fluid signal at L2-L3 concerning for discitis and osteomyelitis. Associated enhancement is nonspecific and supports discitis and osteomyelitis at L2-L3 and minimally at L3-L4. With new mild height loss of the L2 and L3 with endplate changes supporting discitis and osteomyelitis of the L2-L3. No significant change in mild/minimal retrolisthesis at L2-L3 and L3-L4. Enhancement including subcutaneous soft tissues of cellulitis, multifocal myositis including diffuse paraspinal musculature and bilateral iliopsoas musculature, left worse than right. Small foci of the fluid may represent phlegmonous change or small microabscesses in the left iliopsoas musculature measuring up to 0.5 x 0.8 x 0.9 cm). No large or definite drainable intramuscular abscess at this time. Small focus of fluid and enhancement concerning for small-micro epidural abscess versus phlegmonous change at L3 measures 0.6 x 1.0 x 1.9 cm of the left dorsal margin of the vertebral body. Additional signal enhancement follows multilevel Modic endplate changes including type 1 of the imaged thoracic vertebrae to L4-L5 with relative sparing about the lumbosacral junction. The conus is partly obscured and likely terminates at L1-L2, without significant change from comparison. L1-L2: Disc bulge, extrusion, endplate hypertrophy, and bilateral facet arthropathy. Moderate spinal canal stenosis and mild-moderate bilateral foraminal narrowing. L2-L3: Disc changes, endplate hypertrophy, and bilateral facet arthropathy. Moderate to severe spinal canal stenosis. Mild-moderate right and moderate to severe left foraminal narrowing. L3-L4: Disc bulge, extrusion, endplate hypertrophy, and bilateral facet arthropathy. Previous procedure change from micro laminectomy. Recurrent spinal stenosis is considered with thecal sac narrowing accentuated by epidural phlegmonous change above. Essentially severe spinal stenosis at this time. L4-L5: Disc bulge, annular fissure, small extrusion, endplate hypertrophy, and bilateral facet arthropathy. Moderate spinal canal stenosis is likely recurrent, given prior procedure change from right hemilaminectomy. Moderate to severe bilateral foraminal narrowing. L5-S1: Disc bulge, small extrusion, endplate hypertrophy, and bilateral facet arthropathy. Mild-moderate spinal canal stenosis with moderate bilateral lateral recess narrowing. Moderate to severe right and mild-moderate left foraminal narrowing accentuated by positioning. Facet effusions are noted, including lumbosacral junction. Adjacent enhancement is nonspecific and can be seen with septic arthropathy. 1 cm focus of fluid may represent posterior-lateral infected synovial cysts versus separate abscess in the left paraspinal musculature extending from dorsal-lateral margin of the left L5-S1 facet (imaged 05/10/2051 series 12). Superficial gas also noted, particularly at L3 and L4. IMPRESSION: 1. Multifocal findings of infection and inflammation with small microabscess versus epidural phlegmonous change at L3, and 1 cm left paraspinal abscess versus infected synovial cysts of the lumbosacral junction. Also abnormal signal enhancement of the discitis and osteomyelitis, including L2-L3, where there is mild retrolisthesis. 2. Abnormal signal enhancement with multifocal myositis including iliopsoas musculature and paraspinal musculature. 3. Multifocal spinal stenosis, greater than expected for age. This document has been electronically signed by: David Heredia MD on 04/08/2025 19:23:28
--- NOTE | 2025-04-08 13:11 | ED.BACK ---
HPI - Back Pain/Injury General Chief Complaint: Back Pain/Injury Stated Complaint: back pain Time Seen by Provider: 04/08/25 13:20 Source: patient Mode of arrival: wheelchair Limitations: no limitations History of Present Illness ED Provider: Michelle Marinelli PA-C HPI Narrative: Patient is a 54 year old assigned female at with a history of MDD, lumbar canal stenosis s/p right L3-4 L4-5 laminotomy with partial facetectomy and L5 foraminotomy on 03/14/[address] Bull presenting to the emergency department today feeling generally unwell. Patient states that she has been having issues with her post-operative wound and was seen yesterday in the Neuro Spine office where she was started on Bactrim. Patient states that she has no new numbness and tingling but continues to have the groin and right foot numbness / tingling she's been having since immediately after the operation. Patient states that she feels warm and has chills. Patient denies any dizziness, lightheadedness, abdominal pain, nausea, vomiting, blurry vision, double vision, loss of vision, chest pain, difficulty breathing, shortness of breath, night sweats, pain with urination, increased urinary frequency, increased urinary urgency, blood in her urine or stool, syncope or a near syncopal episode, recent trauma or falls, bowel incontinence, bladder incontinence, or any other complaints at this time. Related Data Home Medications ?Medication ?Instructions ?Recorded ?Confirmed multivitamin 1 tab PO DAILY 07/31/22 03/13/25 albuterol sulfate 90 mcg/actuation 1 puff inhalation QID PRN 03/01/25 03/13/25 aerosol inhaler (Ventolin HFA) Shortness Of Breath Or Wheezing omega-3 fatty acids 500 mg capsule 500 mg PO DAILY 03/01/25 03/13/25 tizanidine 2 mg tablet 2 mg PO Q8H PRN muscle spasticity 03/01/25 03/13/25 Previous Rx's ?Medication ?Instructions ?Recorded blood sugar diagnostic (OneTouch 1 strip miscellaneous DAILY #50 09/12/22 Verio test strips) strips acetaminophen 650 mg 650 mg PO Q12H PRN pain 10 days 10/08/23 tablet,extended release #20 tabs baclofen 10 mg tablet 10 mg PO BID 90 days #180 tabs 03/22/24 diclofenac sodium 75 mg 75 mg PO BID 90 days #180 tabs 03/22/24 tablet,delayed release magnesium oxide 250 mg PO DAILY 90 days #90 tabs 08/04/24 allopurinol 100 mg tablet 100 mg PO DAILY #30 tabs 09/21/24 losartan 50 mg tablet 50 mg PO DAILY #90 tabs 10/15/24 montelukast 10 mg tablet 10 mg PO DAILY 90 days #90 tabs 01/18/25 ergotamine 1 mg-caffeine 100 mg 1 tab PO Q30M PRN migraine 02/01/25 tablet headache 30 days #30 tabs hydrocodone 5 mg-acetaminophen 325 1 tab PO BID PRN pain 4 days #8 02/01/25 mg tablet tabs atorvastatin 40 mg tablet 40 mg PO DAILY 90 days #90 tabs 02/02/25 pantoprazole 40 mg tablet,delayed 40 mg PO DAILY #90 tabs 02/17/25 release rollator walker with seat #1 ea 02/20/25 trazodone 100 mg tablet 400 mg (4 x 100 mg) PO BEDTIME 30 02/21/25 days #120 tabs ketorolac 10 mg tablet 10 mg PO TID PRN pain 5 days #15 03/02/25 tabs ykxtwfbftl-xufvcmjlhujev-vekaedvv 1 cap PO Q6H PRN pain 3 days #12 03/13/25 50 mg-325 mg-40 mg capsule caps hydrocodone 5 mg-acetaminophen 325 See Rx Instructions .Route 03/14/25 mg tablet .COMPLEX pain #30 tabs clonidine HCl 0.3 mg tablet 0.3 mg PO BEDTIME #90 tabs 03/27/25 cyanocobalamin (vitamin B-12) 1,000 mcg PO DAILY #90 tabs 03/27/25 1,000 mcg tablet (Vitamin B-12) hydromorphone 4 mg tablet See Rx Instructions PO Q6H PRN 04/04/25 pain #14 tabs sulfamethoxazole 800 1 tab PO BID #30 tabs 04/07/25 mg-trimethoprim 160 mg tablet (Bactrim DS) Allergies Allergy/AdvReac Type Severity Reaction Status Date / Time gabapentin Allergy Intermediate Nausea and Verified 04/08/25 13:14 Vomiting morphine (Morphine) Allergy Intermediate VOMITING Verified 04/08/25 13:14 oxycodone (Percocet) Allergy Intermediate Vomiting Verified 04/08/25 13:14 methocarbamol AdvReac Intermediate GI upset Verified 04/08/25 13:14 Review of Systems Constitutional: Constitutional: Reports no additional constitutional complaints, Reports chills, Reports fever(s) and Denies night sweats Eyes: Eyes: Reports no additional eye complaints, Denies blurry vision, Denies change in vision, Denies diplopia, Denies eye discharge, Denies loss of vision and Denies eye pain ENT: Denies dizziness Cardiovascular: Cardiovascular: Reports no additional cardiovascular complaints, Denies chest pain, Denies lightheadedness, Denies Loss of Consciousness and Denies dyspnea Respiratory: Respiratory: Reports no additional respiratory complaints and Denies dyspnea Gastrointestinal: Gastrointestinal: Reports no additional gastrointestinal complaints, Denies abdominal pain, Denies melena, Denies hematochezia, Denies change in bowel habits and Denies change in stool character Genitourinary: Genitourinary: Denies hematuria, Denies urinary frequency, Denies dysuria, Denies urinary incontinence, Denies urinary hesitancy and Denies urinary urgency Musculoskeletal: Musculoskeletal: Reports no additional musculoskeletal complaints and Reports back pain Neurologic: Denies dizziness and Denies loss of vision Comments: Groin and right foot numbness / tingling - present since post operation on 03/14/2025 Psychiatric: Psychiatric: Reports no additional psychiatric complaints Endocrine: Endocrine: Reports no additional endocrine complaints Hematologic/Lymphatic: Hematologic/Lymphatic: Reports no additional hematologic/lymphatic complaints Allergic/Immunologic: Allergic/Immunologic: Reports no additional allergic/immunologic complaints [facility] Past Medical History Attestation statement: The following information was validated with the patient. Source: old records reviewed and nursing notes reviewed Medical History Anxiety MDD (major depressive disorder) Gout GERD (gastroesophageal reflux disease) Ambulates with cane Smoker Hyperuricemia Asthma Obese Osteoarthritis Trigger finger Carpal tunnel syndrome Hyperlipidemia LDL goal <100 Essential hypertension Hyperlipidemia Cellulitis, umbilical Surgical History History of esophagogastroduodenoscopy (EGD) Hx of colonoscopy History of laparoscopic appendectomy History of foot surgery History of carpal tunnel release H/O: hysterectomy Family History Family History Father Diabetes Hypertension Stroke Heart attack, Onset Age: 50 Mother Multiple sclerosis Brother In good health Son In good health Son In good health Other Patient denies medical problems Social History Social History Household Members: Spouse and Other Housing: Apartment Are you a primary caretaker resort to a significant other at home: No Do you presently have visiting nurse or other home services: No Alcohol intake: current Alcohol intake frequency: holidays/special occasions only Alcohol type: beer Patient Tobacco Use Status: Current everyday Tobacco user Tobacco use type: Cigarette Cigarette Packs Per Day: 0.5 Cigarettes Per Day: 5 Years Smoked: 43-started at age 8 Smoked in Last 30 Days: Yes e-Cigarette/Vaping Use: Never Used Second Hand Smoke Exposure: Yes Use of substances other than those prescribed or required for medical reasons: No Advance Directives: No Advance Directives Information Provided: Yes Nutrition Risks: No Nutritional Risk Patient : No service: No Current occupational status: disabled Cognitive needs: No Hearing needs: No Vision needs: Yes (glasses) Physical Exam Vital Signs: Vital Signs: Last Vital Signs Temp 98.6 F 04/08/25 16:10 Pulse 92 04/08/25 16:10 Resp 18 04/08/25 16:10 BP 107/53 L 04/08/25 16:10 Pulse Ox 96 04/08/25 16:10 O2 Del Method Room Air 04/08/25 16:10 BMI result Body Mass Index 39.4 Const: General: cooperative, no acute distress, alert and awake Nutritional Appearance: well nourished Orientation/consciousness: patient oriented x3 HEENT: Head: Yes normal to inspection and Yes atraumatic Ears: hearing grossly normal bilaterally and external ears normal General nose exam: Normal external nose present, no nasal discharge noted and no epistaxis Face and sinus: Yes normal facial exam, No abrasion and No laceration Mouth: Normal oral and palatal mucosa present, no drooling and no muffled voice Eyes: General: appearance normal, both eyes and all related structures Periorbital: periorbital findings normal Eyelids: Yes eyelids normal Conjunctivae: conjunctivae normal Pupils: Equal, round and reactive pupils present EOM: EOMs intact bilaterally Neck: Neck: Yes normal visual inspection, Yes full ROM and Yes no lymphadenopathy Resp: Effort & Inspection: normal respiratory effort and able to speak in complete sentences Cardio: Rate: tachycardic Rhythm: regular rhythm Back/Spine/Pelvis: Other: Neuro: General: patient oriented x3, moves all extremities and CN's II-XI intact bilaterally Cranial nerves: Yes Equal, round and reactive pupils present Cognition (Neuro): normal cognition Extrem: General: Yes normal to inspection, Yes full ROM and Yes capillary refill normal Psych: Appearance: grossly normal Mental Status: mental status grossly normal Affect: normal affect Attitude: cooperative Thought process: Normal thought process present Thought content: Normal thought content present Insight: Good insight present (Psych) Course Course Course Narrative: 04/08 1322 Liza Cook FOREIGN CLERK This is a rapid medical exam. Deferred additional HPI, ROS, PE to primary provider. 54 yo female with past medical history of depression, back pain, migraines, GERD, DM, asthma, obesity, HLD, HTN, s/p right L3-4, L4-5 Laminotomy, Partial facetectomy and L5 foraminotomy with Dr. 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 She had wound culture sent and started bactrim PO last evening. Wound culture growing staph. Here with worsening pain. No fevers but has had chills. In triage patient has a low blood pressure and is tachycardic. No fever but she has been taking vicodin for pain at home. Will obtain labs including blood culture, lactic acid. Give IVF, antibiotics. Patient is obese. IBW of 52kg used for 30cc/kg NS. Call sepsis alert. Patient brought direct to bed and report given to provider. Medications Administered Generic Name Dose Route Start Last Admin Trade Name Freq PRN Reason Stop Dose Admin Lactated Ringer's 1,000 mls @ 100 mls/hr 04/08/25 16:30 04/08/25 16:28 Lr IVCONT 100 mls/hr .Q10H JAMES Administration Discontinued Medications Generic Name Dose Route Start Last Admin Trade Name Freq PRN Reason Stop Dose Admin Fentanyl 25 mcg 04/08/25 14:20 04/08/25 14:30 Fentanyl Citrate/Pf 100 Mcg/2 Ml Vial IVPUSH 04/08/25 14:21 25 mcg ONCE ONE Administration Protocol Vancomycin HCl 2,000 mg in 500 mls @ 250 mls/hr 04/08/25 13:19 04/08/25 13:45 Vancomycin/Ns IV 04/08/25 15:18 250 mls/hr ONCE ONE Administration Piperacillin Sod/Tazobactam 50 mls @ 100 mls/hr 04/08/25 13:25 04/08/25 14:12 Sod 3.375 gm/ Sodium Chloride IV 04/08/25 13:54 Infused ONCE ONE Infusion Lactated Ringer's 1,000 mls @ 999 mls/hr 04/08/25 13:30 04/08/25 13:54 Lr IV 04/08/25 14:30 Not Given .Q1H1M JAMES Lactated Ringer's 1,572 mls @ 1,572 mls/hr 04/08/25 13:41 04/08/25 14:45 Lr IV 04/08/25 14:40 Infused .Q1H ONE Infusion Acetaminophen 1,000 mg in 100 mls @ 400 mls/hr 04/08/25 14:20 04/08/25 14:47 Ofirmev IV 04/08/25 14:34 Infused ONCE ONE Infusion Ondansetron HCl 4 mg 04/08/25 14:20 04/08/25 14:28 Ondansetron Hcl 4 Mg/2 Ml Vial IVPUSH 04/08/25 14:21 4 mg ONCE ONE Administration Medical Decision Making Medical Decision Making [facility] Narrative: Patient is a 54 year old assigned female at with a history of MDD, lumbar canal stenosis s/p right L3-4 L4-5 laminotomy with partial facetectomy and L5 foraminotomy on 03/14/[address] Bull presenting to the emergency department today feeling generally unwell. Patient's physical exam was as noted in the physical exam portion of this note. Tachycardic and hypotensive. Patient's post-operative lumbar spine wound was draining purulent, foul smelling, discharge. Patient's blood work showed a WBC count of 14, hgb 10.2, 16% bandemia, ESR of 102, sodium of 131, BUN 23, CR 1.09, lactic 4.9, direct bili 0.6, AST 74, ALT 142, alk phos 187, CRP of 40.74. I suspected sepsis in this patient at 1341. Upon reviewing the patient's chart, I reviewed the results of her lumbar MRI performed on 03/23/2025 that showed a 7 x 6 x 5 cm fluid collection within the posterior soft tissues at the side of the recent surgery which the radiologist speculated could be infection vs. simple postoperative fluid collection. I also reviewed the patient's post-operative wound culture collected on 04/07/2025 that came back positive for staph aureus. I am suspicious the patient has a spinal abscess vs. soft tissue abscess causing her sepsis. I spoke with the [facility] neurosurgery PA, Sumeet Arambula who recommended IV antibiotics, pain management, and admission to the medical service. I asked GM Arambula about obtaining additional or repeat imaging of the lumbar spine and he said that was not recommended / necessary at this time. GM Arambula presented the case to the medicine team who agreed to admission. While the patient was in the department she received IV Vancomycin and zosyn as well as a 30mg/kg bolus based on ideal body weight (ideal body weight used because of patient's obesity / BMI of 39.4) of LR which improved her hypotension and tachycardia. Patient was given IV Fentanyl and Tylenol which improved her tachycardia and pain. I explained my physical exam findings as well as all test results to the patient. I answered all questions asked by the patient. Patient verbalized agreement and understanding with this treatment plan and admission. Differential Diagnosis Differential Diagnoses: The differential diagnosis associated with the presentation includes Spinal abscess Soft tissue abscess Post-operative complication Admission/Observation Consideration of admission/observation: Escalation of care including admission/observation considered Patient admitted as noted in the [facility] Rationale portion of this note. Consult Healthcare Provider Management of the patient was discussed with: Hospitalist (agreed to admission as noted in the MDM Rationale portion of this note. ) and Paunch Trimmer (Spoke with the neurosurgery team as noted in the MDM Rationale portion of this note. ) Lab Data [facility] Lab Attestation statement: I reviewed the patient's lab results. My interpretation of these results are in the MDM Rationale portion of this note. 04/08/25 13:31 04/08/25 13:13 Labs: Lab Results 04/08/25 04/08/25 Range/Units 13:13 13:31 WBC 14.0 H (4.8-10.8) X10*3/uL RBC 3.29 L D (4.20-5.50) X10*6/uL Hgb 10.2 L D (12.0-16.0) g/dl Hct 29.1 L D (37.0-47.0) % MCV 88.4 (80.0-98.0) fL MCH 31.0 (27.0-33.0) pg MCHC 35.1 H (31.0-35.0) g/dl RDW 13.5 (11.0-16.0) % Plt Count 171 D (160-400) X10*3/uL MPV 9.0 L (9.4-12.3) fL Immature Gran % (Auto) Cancelled Neut % (Auto) Cancelled Lymph % (Auto) Cancelled Chase % (Auto) Cancelled Eos % (Auto) Cancelled Baso % (Auto) Cancelled Lymph # (Auto) Cancelled Chase # (Auto) Cancelled Eos # (Auto) Cancelled Baso # (Auto) Cancelled Abs Immat Gran (auto) Cancelled Absolute Neuts (auto) Cancelled Absolute Nucleated RBC 0.000 (0.0-0.012) X10*3/uL Nucleated RBC % (auto) 0.0 (0.0-0.2) /100WBC Neutrophils % (Manual) 79 H (45-73) % Band Neutrophils % 16 H (3-5) % Lymphocytes % (Manual) 2 L (20-40) % Monocytes % (Manual) 2 (2-11) % Basophils % (Manual) 1 (0-2) % Abs Neuts (Manual) 13.3 H (2.0-8.3) X10*3/uL Lymphocytes # (Manual) 0.3 L (1.2-4.9) X10*3/uL Monocytes # (Manual) 0.3 (0.1-1.2) X10*3/uL Basophils # (Manual) 0.1 (0.0-0.2) X10*3/uL Platelet Estimate NORMAL (NORMAL) Large Platelets PRESENT Plt Morphology Comment NORMAL RBC Morphology NORMAL ESR 102 H (0-20) MM/HR Sodium 131 L (135-145) mmol/L Potassium 3.4 (3.3-5.1) mmol/L Chloride 99 (96-108) mmol/L Carbon Dioxide 17 L (22-29) mmol/L Anion Gap 18 (12-20) BUN 23 H (9-16) mg/dL Creatinine 1.09 (0.5-1.4) mg/dL Estim Creat Clear Calc 66.9 Estimated GFR 52 Random Glucose 203 H (60-115) mg/dL Lactic Acid 4.2 H* (0.5-2.0) mmol/L Calcium 9.9 (8.4-10.2) mg/dL Total Bilirubin 0.9 (0.0-1.0) mg/dL Direct Bilirubin 0.6 H (0.0-0.5) mg/dL AST 74 H (5-31) U/L ALT 142 H (0-31) U/L Alkaline Phosphatase 187 H (39-117) U/L C-Reactive Protein 40.74 H (< or = 0.50) mg/dL Total Protein 6.7 (6.5-8.0) g/dL Albumin 3.6 (3.5-5.0) g/dL Critical Care Time Critical Care Time Critical Care Time: Yes Total Critical Care Time: 48 Attestation: I spent 48 minutes of Critical Care Time with this patient. This does not include time spent on separately reported billable procedures. Discharge Plan Discharge Clinical Impression: Sepsis Patient Disposition: Admitted As Inpatient
[2025-04-08 13:42] LABS: Hematocrit 29.1 % (37.0-47.0); Hemoglobin 10.2 g/dl (12.0-16.0); Mean Corpuscular HGB Conc 35.1 g/dl (31.0-35.0); Mean Corpuscular Hemoglobin 31.0 pg (27.0-33.0); Mean Corpuscular Volume 88.4 fL (80.0-98.0); NRBC Abs Auto 0.000 X10*3/uL (0.0-0.012); NRBC Pct Auto 0.0 /100WBC (0.0-0.2); Platelet Count 171 X10*3/uL (160-400); Red Blood Count 3.29 X10*6/uL (4.20-5.50); White Blood Count 14.0 X10*3/uL (4.8-10.8)
[2025-04-08] MEDS: vancomycin/NS 2,000 MG/500 ML PLAST..BAG 250 MG IV (13:45)
[2025-04-08 14:01] LABS: Alanine Aminotransferase 142 U/L (0-31); Albumin Level 3.6 g/dL (3.5-5.0); Alkaline Phosphatase 187 U/L (39-117); Anion Gap 18 (12-20); Aspartate Amino Transferase 74 U/L (5-31); Blood Urea Nitrogen 23 mg/dL (9-16); Calcium 9.9 mg/dL (8.4-10.2); Carbon Dioxide 17 mmol/L (22-29); Chloride 99 mmol/L (96-108); Creatinine Clr Calc Pharmacy 66.9; Estimated Glomerular Filt Rate 52; Potassium 3.4 mmol/L (3.3-5.1); Sodium 131 mmol/L (135-145); Total Protein 6.7 g/dL (6.5-8.0)
[2025-04-08 14:10] LABS: Neutrophils Percent Manual 79 % (45-73)
[2025-04-08 14:12] LABS: Band Neutrophils Percent 16 % (3-5); Basophils Abs Manual 0.1 X10*3/uL (0.0-0.2); Basophils Percent Manual 1 % (0-2); Lymphocytes Absolute Manual 0.3 X10*3/uL (1.2-4.9); Lymphocytes Percent Manual 2 % (20-40); Monocytes Absolute Manual 0.3 X10*3/uL (0.1-1.2); Monocytes Percent Manual 2 % (2-11); Neutrophils Absolute Manual 13.3 X10*3/uL (2.0-8.3)
[2025-04-08 14:14] LABS: Large Platelet PRESENT; RBC Morphology NORMAL
--- NOTE | 2025-04-08 14:53 | PC.NURSE ---
pt presents to dept from home. pt sts that she [place] [facility] Pt and significant other state that the surgical site opened on Monday 04/02. Pt reported that surgical site was scabbed over prior to Thursday. Pt reports increasing pain and drainage to site. Pt went [place] [facility] [place]07- site was cultured and pt was started on PO ABX. Pt hypotensive in WR and was brought back via WC to ED24. Pt endorces numbness to left hip and perineal area w/ difficulty ambulating. electronic device monitor applied, rectal temp 99.8 on arrival. IV access established and labs were obtained. Pt arrived with wound dressing saturated in yellow purulent drainage. Wound dressing was taken down with GM Morel at bedside, active yellow drainage noted. Per Micro gram stain (+) for staph. Sepsis bolus and IVF admin per orders. pt given fentanyl 25mcg for 10/10 site pain.
--- NOTE | 2025-04-08 15:11 | PC.NURSE ---
GM Pitrat to bedside- discussing inpatient admission for further management ant TX of surgical infection.
--- NOTE | 2025-04-08 15:34 | HO.NEUROPN_ITS ---
Neurosurgery Operative Note Date of Service: 04/08/25 Narrative: HPI: Vickie is a 54-year-old female who underwent right L3-4, L4-5 Laminotomy, Partial facetectomy and L5 foraminotomy with incidental durotomy on 03/14/25. To recap she was seen in clinic on 03/21/25 due to right sided leg pain that had worsened since surgery, alongside new perineal numbness, and new right foot numbness. She was again evaluated in clinic yesterday by GM Rosario who obtained wound cultures after her wound opened up a bit. See previous office visit notes for specifics regarding this. Today, she presents to the emergency department for worsening low back pain and general malaise. She was seen lying in bed 24 in the emergency department. She is conversant, and continues to report that her right leg pain is gone, but states that she feels generally unwell with chills, fatigue, and fairly significant low back pain. She feels her pain is much better now that they started her on fentanyl. Her wound cultures taken yesterday came back and grew 4+ Staphylococcus aureus. She has been started on vancomycin and Zosyn IV by our colleagues in the ED. She was fairly hypotensive when she arrived to the ED, with her BP around 80/40, but her BP has improved with the addition of IV fluids. She also was tachycardic when arriving to the ED at 117, now also improved to normal rate. Vitals: BP: 104/57, T: 98.8, HR: 95, RR: 17, 02: 94% RA Pertinent labs: WBC: 14, ESR: 102, CRP: 40.74, Lactic acid: 4.2, NA: 131, glucose: 203, AST: 74, ALT: 142, Alk phos: 187. Physical Exam: The patient is awake, alert, and in no acute distress. She is conversant and speaks in full sentences. She is able to follow commands and log rolls to the side without much issue for inspection of the wound. It appears her incision site has opened up slightly since I last examined her. I'd estimate it has opened up about 1/2 - 1cm. There is some drainage but it i scant and appears serosanguineous. No jossue pus noted. No pus expressed from incision site when palpating wound edges. Some erythema surrouding incision site extending out about 2cm on each side. The patient maintains full 5/5 strength of her bilateral lower extremities. Plan: 54-year-old female who underwent right L3-4, L4-5 Laminotomy, Partial facetectomy and L5 foraminotomy with incidental durotomy on 03/14/25. She had a repeat MRI completed 2 weeks ago which showed a CSF leak coming from the right L5 nerve causing a fluid collection. She now has a wound infection, with wound cultures taken yesterday growing staph aureus. ED has already ordered blood cultures. She will need to be admitted to medicine team for IV antibiotics and ID consult. We will follow her closely and provide recs as needed. I will update Dr. Bull regarding. Sumeet Bull MD,PhD [facility]
[2025-04-08 15:39] LABS: Reflex Lactate? Lactic Acid Added
--- NOTE | 2025-04-08 15:45 | PC.NURSE ---
MS Truong and GM Lozano at bedside discussing admission
--- NOTE | 2025-04-08 15:55 | PC.NURSE ---
repeat lactic delayed d/t hospitalist consulting with pt
[2025-04-08] MEDS: Lactated Ringers 1,000 ML 100 ML IVCONT (16:28)
--- NOTE | 2025-04-08 16:41 | PM.IMHP ---
History of Present Illness Date of Service: 04/08/25 Attending physician on admission: Grayson Truong Chief Complaint: Back pain Pt is a 54-year-old female with a PMH significant for HTN, HLD, COPD,?GERD, lumbar canal stenosis s/p right L3-4 L4-5 laminotomy with partial facetectomy and L5 foraminotomy on 03/14/[address] Bull who presents to the ED with?right-sided lower back and hip pain, generally feeling unwell, and worsening surgical incision site. Pt reports initially incision site was looking great up until 2 weeks ago when scabs fell off and top of the incision opened up. Was seen at spinal clinic and MRI was done that showed a 7 x 6 x 5 cm fluid collection within the posterior soft tissues at the site of recent surgery that was initially initially thought to be a simple postoperative collection. A few days ago patient's wound began leaking foul-smelling discharge and then wound Tsang dehisced. Pt was seen at neurology spinal office where wound specimen was collected and pt was started on Bactrim DS. Pt reports has had increased numbness in right foot since the surgery, but has been consistent with the past 3 weeks. Denies any worsening numbness, tingling, or pain in lower extremities. No saddle anesthesia. No increased lower leg weakness. Denies any change to bowel or bladder habits. Denies fever, chills, nausea, vomiting, abdominal pain. No SOB or difficulty breathing. Denies chest pain/pressure, palpitations. In the ED pt was afebrile but tachycardic up to 116 and hypotensive as low as 85/39. Labs were significant for leukocytosis of 14.0, anemia 10.2/29.1, bandemia of 16, ESR 102, sodium 131, creatinine mildly elevated 1.08, initial lactic acid 4.2 with repeat 1.5, AST 74, ALT 142, alk-phos 187, and CRP 40.74. Wound culture from yesterday showed 4+ bacteria positive for staph aureus. Pt was treated in the ED with ondansetron, acetaminophen, fentanyl, sepsis bolus fluids, vancomycin, and Zosyn. Pt is admitted to the hospital for treatment and further evaluation of wound infection with sepsis concerning for abscess vs osteo. Review of Systems Review of Systems: Negative except for that which is stated in the [facility] Medical History Anxiety MDD (major depressive disorder) Gout GERD (gastroesophageal reflux disease) Ambulates with cane Smoker Hyperuricemia Asthma Obese Osteoarthritis Trigger finger Carpal tunnel syndrome Hyperlipidemia LDL goal <100 Essential hypertension Hyperlipidemia Cellulitis, umbilical Family History Father Diabetes Hypertension Stroke Heart attack, Onset Age: 50 Mother Multiple sclerosis Brother In good health Son In good health Son In good health Other Patient denies medical problems Surgical History History of esophagogastroduodenoscopy (EGD) Hx of colonoscopy History of laparoscopic appendectomy History of foot surgery History of carpal tunnel release H/O: hysterectomy Social History Household Members: Spouse and Children Housing: Apartment Are you a primary insurance healthcare consultant to a significant other at home: No Do you presently have visiting nurse or other home services: No Alcohol intake: current Alcohol intake frequency: holidays/special occasions only Alcohol type: beer Patient Tobacco Use Status: Current everyday Tobacco user Tobacco use type: Cigarette Cigarette Packs Per Day: 0.5 Cigarettes Per Day: 10.0 Years Smoked: 46 e-Cigarette/Vaping Use: Never Used Second Hand Smoke Exposure: Yes service: No Current occupational status: disabled Cognitive needs: No Hearing needs: No Vision needs: Yes (glasses) Meds Allergies Allergy/AdvReac Type Severity Reaction Status Date / Time gabapentin Allergy Intermediate Nausea and Verified 04/08/25 13:14 Vomiting morphine (Morphine) Allergy Intermediate VOMITING Verified 04/08/25 13:14 oxycodone (Percocet) Allergy Intermediate Vomiting Verified 04/08/25 13:14 methocarbamol AdvReac Intermediate GI upset Verified 04/08/25 13:14 Active Medications: Current Medications Lactated Ringer's (Lr) 1,000 mls @ 100 mls/hr IVCONT .Q10H [facility] Last Admin: 04/08/25 16:28 Dose: 100 mls/hr Piperacillin Sod/Tazobactam (Sod 3.375 gm/ Sodium Chloride) 50 mls @ 100 mls/hr IV Q6H [facility] Pharmacy Consult (Consult Rx Vancomycin Dosing) 1 each MISCELLANE DAILY PRN PRN Reason: Consult order Home Medications ?Medication ?Instructions ?Recorded ?Confirmed ?Last Taken ?Type multivitamin 1 tab PO DAILY 07/31/22 04/08/25 Unknown History omega-3 fatty acids 500 mg capsule 500 mg PO DAILY 03/01/25 04/08/25 03/06/25 History tizanidine 2 mg tablet 2 mg PO Q8H PRN muscle spasticity 03/01/25 04/08/25 Unknown History baclofen 10 mg tablet 10 mg PO DAILY 04/08/25 04/08/25 Unknown History hydrocodone 5 mg-acetaminophen 325 1 - 2 tab PO Q6H PRN pain 04/08/25 04/08/25 Unknown History mg tablet hydromorphone 4 mg tablet 4 mg PO Q6H PRN pain 04/08/25 04/08/25 Unknown History Physical Exam Vital Signs and Narrative: Vital Signs: Last Vital Signs Temp 98.6 F 04/08/25 16:10 Pulse 92 04/08/25 16:10 Resp 18 04/08/25 16:10 BP 107/53 L 04/08/25 16:10 Pulse Ox 96 04/08/25 16:10 O2 Del Method Room Air 04/08/25 16:10 BMI result Body Mass Index 39.4 General: AOx3, in obvious discomfort though no acute distress Resp: CTA bilaterally CVS: S1, S2, RRR GI: +BS, NT, no distention Skin: Warm, dry Neuro: Cranial nerves II-XII grossly intact bilaterally. Motor grossly intact bilaterally. Strength symmetric and intact of lower extremities bilaterally. Sensation to light touch intact of lower extremities bilaterally. Back: Surgical incision site with surrounding warmth and erythema, some purulent and foul-smelling discharge. As pictured below Extremities: No edema Psych: Appropriate affect Results Labs 04/09/25 06:16 04/09/25 06:16 Labs: Laboratory Results - last 24 hr 04/08/25 04/08/25 13:13 13:31 MCV 88.4 MCH 31.0 MCHC 35.1 H RDW 13.5 Plt Count 171 D MPV 9.0 L Immature Gran % (Auto) Cancelled Neut % (Auto) Cancelled Lymph % (Auto) Cancelled Mchenry % (Auto) Cancelled Eos % (Auto) Cancelled Baso % (Auto) Cancelled Lymph # (Auto) Cancelled Mchenry # (Auto) Cancelled Eos # (Auto) Cancelled Baso # (Auto) Cancelled Abs Immat Gran (auto) Cancelled Absolute Neuts (auto) Cancelled Absolute Nucleated RBC 0.000 Nucleated RBC % (auto) 0.0 Neutrophils % (Manual) 79 H Band Neutrophils % 16 H Lymphocytes % (Manual) 2 L Monocytes % (Manual) 2 Basophils % (Manual) 1 Abs Neuts (Manual) 13.3 H Lymphocytes # (Manual) 0.3 L Monocytes # (Manual) 0.3 Basophils # (Manual) 0.1 Platelet Estimate NORMAL Large Platelets PRESENT Plt Morphology Comment NORMAL RBC Morphology NORMAL ESR 102 H Anion Gap 18 Estim Creat Clear Calc 66.9 Estimated GFR 52 Random Glucose 203 H Lactic Acid 4.2 H* Calcium 9.9 Total Bilirubin 0.9 Direct Bilirubin 0.6 H AST 74 H ALT 142 H Alkaline Phosphatase 187 H C-Reactive Protein 40.74 H Total Protein 6.7 Albumin 3.6 Assessment and Plan (1) Sepsis: Status: Acute Plan Pt is a 54-year-old female with a PMH significant for HTN, HLD, COPD,?GERD, gout, and lumbar canal stenosis s/p right L3-4 L4-5 laminotomy with partial facetectomy and L5 foraminotomy on 03/14/[address] Bull who presents to the ED with?right-sided lower back and hip pain, generally feeling unwell, and worsening surgical incision site. Pt is admitted to the hospital for treatment and further evaluation of wound infection with sepsis concerning for abscess vs osteo. Surgical incision wound infection with sepsis with severe features Pt s/p uncomplicated L3-5 lumbar decompression on 03/14/25 MRI on 03/23 showed 7 x 6 x 5 cm fluid collection thought to be simple postoperative collection Wound culture gram stain from yesterday showing 4+ staph aureus Meets severe sepsis features with tachycardia and leukocytosis/bandemia with hypotension and lactic acid 4.2 Pt started on broad-spectrum antibiotics and given sepsis bolus fluids based on ideal weight in the ED with improvement to BP and resolution of lactic acidosis Will treat with vancomycin and Zosyn, started 04/08/2025 ESR and CRP severely elevated, concerning for osteo We will get repeat MRI without/with contrast to evaluate for spinal abscess and/or osteomyelitis Neurosurgery consult Follow wound and blood cultures Hyponatremia, mild Sodium 131 at time of presentation Pt received IVF in the ED Trend labs HLD Continue statin HTN Hold clonidine, losartan due to hypotension and continued to soft BP Resume as warranted COPD Not in acute exacerbation Continue home inhalers, montelukast Gout Continue allopurinol Obesity class III BMI 40.5 Encourage weight loss Full Code Attending:?Dr. Truong DVT Prophylaxis: Lovenox Pt will require a hospitalization of at least two nights for treatment of?surgical incision wound infection with severe sepsis concerning for abscess vs osteomyelitis. Pt will require hospital level care for administration of IV antibiotics while awaiting blood culture results and additional imaging. Quality Stroke Does the patient have a stroke diagnosis?: No VTE Prior VTE?: No VTE Risk Level:: Medical - moderate - high VTE Device Contraindication: Treatment Not Indicated VTE Drug Contraindication: N/A - Med Ordered
[2025-04-08 16:43] LABS: ~Lactic Acid-LAB USE ONLY 1.5 mmol/L (0.5-2.0)
--- NOTE | 2025-04-08 16:56 | PC.NURSE ---
pt notified of plan for MRI- pt refusing MRI at this time- MD Truong and GM Lozano notified via [facility]
--- NOTE | 2025-04-08 17:14 | PHA.MEDREC ---
Addendum entered by Jory Dumas RPh 04/08/25 17:25: Reviewed by [facility] Original Note: Pharmacy Consult ? Medication Reconciliation Pharmacy has completed the medication reconciliation. Spoke with patient to confirm medications. She brought in a med list from home. She takes baclofen once daily (not bid). She takes diclofenac 75 mg bid (LF 01/30 x14 DS). She still takes hydrocodone-acetaminophen prn (LF 03/14 x4 DS) and hydromorphone prn (uses whole tab prn instead of half tab). She started bactrim yesterday evening and took one this morning. She had no other medications this morning but did take her evening meds last night. She is not taking gabapentin.
--- NOTE | 2025-04-08 17:24 | PC.NURSE ---
pt to have repeat MRI- MRI screening completed and sent- report to inpatient unit given
--- NOTE | 2025-04-08 17:28 | PC.NURSE ---
pt taken to MRI
[2025-04-08] MEDS: Diclofenac Sodium Delayed Rel 75 MG TABLET.DR PO (20:56)
[2025-04-08] MEDS: Butalb/Acetamin/Caff 50/325/40 TABLET 1 TAB PO (22:42)
[2025-04-09] VITALS (8 sets, daily range): BP systolic 96–135; BP diastolic 51–71; PULSE 83–108; RESP 16–20; TEMP 36.6–37.7; O2SAT 90–100
[2025-04-09] MEDS: 0.9 % Sodium Chloride Flush 3 ML SYRINGE IVFLUSH ×3 (02:17→15:49)
[2025-04-09 07:10] LABS: Alanine Aminotransferase 92 U/L (0-31); Albumin Level 2.8 g/dL (3.5-5.0); Alkaline Phosphatase 132 U/L (39-117); Anion Gap 13 (12-20); Aspartate Amino Transferase 43 U/L (5-31); Blood Urea Nitrogen 21 mg/dL (9-16); Calcium 9.2 mg/dL (8.4-10.2); Carbon Dioxide 20 mmol/L (22-29); Chloride 105 mmol/L (96-108); Creatinine Clr Calc Pharmacy 79.6; Estimated Glomerular Filt Rate > 60; Hematocrit 26.9 % (37.0-47.0); Hemoglobin 9.1 g/dl (12.0-16.0); Mean Corpuscular HGB Conc 33.8 g/dl (31.0-35.0); Mean Corpuscular Hemoglobin 30.6 pg (27.0-33.0); Mean Corpuscular Volume 90.6 fL (80.0-98.0); NRBC Abs Auto 0.020 X10*3/uL (0.0-0.012); NRBC Pct Auto 0.3 /100WBC (0.0-0.2); Platelet Count 141 X10*3/uL (160-400); Potassium 3.4 mmol/L (3.3-5.1); Red Blood Count 2.97 X10*6/uL (4.20-5.50); Sodium 135 mmol/L (135-145); Total Protein 5.5 g/dL (6.5-8.0); White Blood Count 7.8 X10*3/uL (4.8-10.8)
[2025-04-09 08:06] LABS: Hemoglobin A1C 95.1703 umol/L; Total Hemoglobin (HGBA1C) 2429.4778 umol/L
[2025-04-09] MEDS: Diclofenac Sodium Delayed Rel 75 MG TABLET.DR PO ×2 (08:59→21:16)
[2025-04-09] MEDS: Lactated Ringers 1,000 ML 100 ML IVCONT ×3 (09:08→21:08)
--- NOTE | 2025-04-09 12:46 | HO.NEURO.PN ---
Neurosurgery Operative Note Date of Service: 04/09/25 Narrative: HPI: Vickie is a 54-year-old female who underwent right L3-4, L4-5 Laminotomy, Partial facetectomy and L5 foraminotomy with incidental durotomy on 03/14/25. She presented to the emergency department yesterday for increasing low back pain and general malaise. She had a deep wound culture result yesterday that showed 4+ staph grown from swab taken in clinic on 04/07. She was admitted to the medicine service yesterday and started on IV vancomycin and Zosyn. Her blood pressure and vitals seem to have improved after administration of antibiotics in IV fluids. Blood cultures were taken yesterday in the ED show a preliminary result today of gram positive cocci in clusters. Today, she was seen sitting upright in bed on [facility] unit. She reports that overall she feels better today than she did yesterday. She did have some trouble with pain control this morning, but states that her low back pain is managed fairly well right now. She is still getting up out of bed to use the bathroom and is tolerating p.o. diet without much issue. Vitals (most recent): BP: 101/51, T: 97.8, HR: 103, RR: 18, 02: 92% RA Pertinent labs 04/09/25: WBC: 7.8, AST: 43, ALT: 92, ALK Phos: 132 Physical Exam: The patient is A&OX4, and in no acute distress. She is conversant, and able to log roll to the side for wound inspection without issue. Overall seems in much less pain during examination today than yesterday. She maintains full 5/5 strength in her bilateral lower extremities. Her wound was sealed off with non adherent gauze and tape. There was some purulent drainage on the dressing. I changed her dressing with a single ABD pad and two lightly approximated pieces of tape. No significant pain elicited during dressing change / inspection of the wound. It still apears to be opened up about 1cm in diameter. Plan: 54-year-old female who underwent right L3-4, L4-5 Laminotomy, Partial facetectomy and L5 foraminotomy with incidental durotomy on 03/14/25. She had a repeat MRI completed 2 weeks ago which showed a CSF leak coming from the right L5 nerve causing a fluid collection. She now has a wound infection, with wound cultures taken yesterday growing staph aureus. Blood cultures came back with preliminary result today showing gram positive cocci in clusters. MRI of the lumbar spine was reviewed by the attending neurosurgeon Dr. Bull yesterday. We do not believe there is much to be done from a surgical standpoint based on MRI results. The patient would most benefit from an ID consult (ordered by medicine team at 21:00 yesterday) and continued inpatient admission with IV Abx. Dressing changes should be done at minimum 3 times daily with likely approximated ABD pad or nonadherent gauze. The wound should not be sealed off from air. This was discussed with the attending neurosurgeon Dr. Bull who understands and agrees to this plan. Sumeet Bull MD,PhD [facility]
--- NOTE | 2025-04-09 12:56 | HE.PHANOTE ---
RE: vanco Level on 04/09 came back at 11.1. Increased dose to 750 mg Q8H with predicted trough of 17.7, AUC of 501. Next level to be drawn 04/10 @1100
--- NOTE | 2025-04-09 16:27 | MHC.CM.PN ---
PT VERY SLEEPY ON APPROACH AND NEEDS TO BE AWOKEN BETWEEN EACH QUESTION SHE WAS ABLE TO PROVIDE THE FOLLOWING INFORMATION SHE LIVES WITH HER SPOUSE AND ADULT CHILDREN SHE IS INDEPENDENT AND USES A CANE SHE SAYS SHE IS WORKING ON A HCP PCP: ZURDO CROCKETT IMM DELIVERED DCP: HOME VIA PRIVATE TRANSPORT
[2025-04-09] MEDS: Butalb/Acetamin/Caff 50/325/40 TABLET 1 TAB PO (21:15)
[2025-04-10 03:55] VITALS: BP 141/66; PULSE 84; RESP 18; TEMP 36.9; O2SAT 91
[2025-04-10 07:15] LABS: Creatinine Clr Calc Pharmacy 89.1; Estimated Glomerular Filt Rate > 60
[2025-04-10 07:56] VITALS: BP 130/73; PULSE 74; RESP 16; TEMP 36.6; O2SAT 90
--- NOTE | 2025-04-10 08:19 | HO.WOUND ---
Wound consult: Deferred to Neuro Surg Provider 54yr old female admitted to [facility] on 04/08/25 s/p spinal surgery - see H& P for detailed history and admission. Chart review reveals she was seen by Neuro surgery PA Sumeet Arambula and topical recommendations were made for the following: Dressing changes should be done at minimum 3 times daily with likely approximated ABD pad or nonadherent gauze. The wound should not be sealed off from air. Discussed with Dr. Truong will defer topical orders to Neuro surgery team but I will place to above reference orders for staff to be able to see as these recommendations were only placed in his note making it difficult for staff to see. Topical recommendations per [facility] Team: Spinal Surgical Incision: Lightly cleanse with NS moist gauze, pat dry. Apply skinprep to periwound. Cover wound bed with ABD pad or non adherent gauze, secure lightly with tape. The wound should not be sealed off from air. Change three times a day and PRN.
[2025-04-10] MEDS: Diclofenac Sodium Delayed Rel 75 MG TABLET.DR PO ×2 (08:39→20:36)
[2025-04-10] MEDS: 0.9 % Sodium Chloride Flush 3 ML SYRINGE IVFLUSH ×2 (08:40→21:43)
--- NOTE | 2025-04-10 11:03 | HO.NEURO.PN ---
Neurosurgery Operative Note Date of Service: 04/10/25 Narrative: HPI: Vickie is a 54-year-old female who underwent right L3-4, L4-5 Laminotomy, Partial facetectomy and L5 foraminotomy with incidental durotomy on 03/14/25. She is admitted to 4th floor [facility] for continued inpatient management of wound infection with sepsis. Blood cultures and wound culture grew gram positive cocci. She was seen sitting upright in bed this morning eating breakfast. She continues to report that she feels better each day she is here at the hospital. She has been OOB to bedside commode, but has not been up walking outside of her room / around the unit. She continues to report resolution of R leg pain, and reports persistent low back pain near incision site. Infectious disease was consulted over the weekend (Thursday) and will hopefully be by to see her today and provide recommendations. Wound care has also been consulted. Vitals (most recent): BP: 130/73, T: 97.9, HR: 74, RR: 16, 02: 90% RA Pertinent labs 04/09/25: WBC: 7.8, AST: 43, ALT: 92, ALK Phos: 132, BUN: 21, Cr: .83 Physical Exam: The patient is A&OX4, and in no acute distress. She is conversant, and able to log roll to the side for wound inspection without issue. Pain seems similar to the pain she had yesterday. She maintains full 5/5 strength in her bilateral lower extremities. Her wound was covered with gauze, which was removed for inspection. There was some purulent drainage on the dressing. We changed her dressing with gauze and two lightly approximated pieces of tape. No significant pain elicited during dressing change / inspection of the wound. It still appears to be opened up about 1cm in diameter, no notable change. Plan: 54-year-old female who underwent right L3-4, L4-5 Laminotomy, Partial facetectomy and L5 foraminotomy with incidental durotomy on 03/14/25. She now has a wound infection, with wound cultures and blood cultures growing gram + cocci. Pertinent labs, imaging, and vitals have been communicated with the attending neurosurgeon Dr. Bull who believes the patient would most benefit from an ID consult, wound care consult, ambulation with assistance, incentive spirometry, DVT ppx with bilateral knee high TEDS, and continued inpatient admission with IV Abx, ideally administered via PICC line. I will place the order for PICC line. Dressing changes should be done at minimum 3 times daily with likely approximated ABD pad or non-adherent gauze. The wound should not be sealed off from air. Wound care will need to advise us Re:packing for the wound, but this likely will need to be started as well. This was discussed with the attending neurosurgeon Dr. Bull who understands and agrees to this plan. Sumeet Bull MD,PhD [facility]
[2025-04-10 11:23] VITALS: BP 120/56; PULSE 89; TEMP 36.9; O2SAT 93
--- NOTE | 2025-04-10 11:47 | HE.PHANOTE ---
Re Vanc Trough = 14.7, steady state level projected to be ~15 mg/dL. Will continue 750mg q8h and check level tomorrow @1100
--- NOTE | 2025-04-10 15:25 | HO.PM.IMPN ---
Subjective Subjective Date of Service: 04/10/25 Interval History: Surgical incision wound infection with sepsis with severe features Review of Systems seen 04/09 vitals reviewed has back pain Physical Exam Vital Signs: Vital Signs: Last Vital Signs BMI result Body Mass Index 40.5 vitals from 04/09 reviewed Appearance: Alert.? Oriented X3.? cvs: rrr, [id number]. res: clear to auscultation ,no rhonchii or wheezing abd: no rebound or guarding ,nt, bs present. back area:Surgical incision site with surrounding warmth and erythema, some purulent and foul-smelling discharge. pic per h&P. ext pulses present , no cyanosis neuro: axo3 , nonfocal. Objective Data Active Medications Acetaminophen (Acetaminophen 325 Mg Tablet) 975 mg PO Q6H [facility] Last Admin: 04/10/25 08:39 Dose: 975 mg Documented By: CAMPOS Acetaminophen/Butalbital/Caffeine (Butalb/Acetamin/Caff 50/325/40 Tablet) 1 tab PO Q4H PRN PRN Reason: Headache Last Admin: 04/09/25 21:15 Dose: 1 tab Documented By: BOGDAN Allopurinol (Allopurinol 100 Mg Tablet) 100 mg PO DAILY [facility] Last Admin: 04/10/25 08:40 Dose: 100 mg Documented By: CAMPOS Atorvastatin Calcium (Atorvastatin Calcium 40 Mg Tablet) 40 mg PO DAILY [facility] Last Admin: 04/10/25 08:40 Dose: 40 mg Documented By: CAMPOS Baclofen (Baclofen 10 Mg Tablet) 10 mg PO DAILY [facility] Last Admin: 04/10/25 08:39 Dose: 10 mg Documented By: CAMPOS Calcium Carbonate (Calcium Carbonate 750 Mg Tab.Chew) 750 mg PO Q4H PRN PRN Reason: Heartburn Cyanocobalamin (Cyanocobalamin (Vitamin B-12) 1,000 Mcg Tablet) 1,000 mcg PO DAILY [facility] Last Admin: 04/10/25 08:40 Dose: 1,000 mcg Documented By: CAMPOS Diclofenac Sodium (Diclofenac Sodium Delayed Rel 75 Mg Tablet.) 75 mg PO BID [facility] Last Admin: 04/10/25 08:39 Dose: 75 mg Documented By: CAMPOS Enoxaparin Sodium (Enoxaparin Sodium 40 Mg/0.4 Ml Syringe) 40 mg SUBCUT Q24H [facility] On Hold: 04/09/25 07:27 Last Admin: 04/08/25 20:56 Dose: 40 mg Documented By: REYNA Hydromorphone HCl (Hydromorphone Hcl 2 Mg Tablet) 4 mg PO Q6H PRN PRN Reason: pain Last Admin: 04/10/25 05:04 Dose: 4 mg Documented By: BOGDAN Piperacillin Sod/Tazobactam (Sod 3.375 gm/ Sodium Chloride) 50 mls @ 100 mls/hr IV Q6H [facility] Last Infusion: 04/10/25 15:21 Dose: Infused Documented By: CAMPOS Vancomycin HCl 750 mg/ Sodium (Chloride) 265 mls @ 265 mls/hr IV Q8H [facility] Last Infusion: 04/10/25 15:21 Dose: Infused Documented By: CAMPOS Magnesium Hydroxide (Milk Of Magnesia 30 Ml Oral.Susp) 30 ml PO DAILY PRN PRN Reason: Constipation Magnesium Oxide (Magnesium Oxide 400 Mg Tablet) 200 mg PO DAILY [facility] Last Admin: 04/10/25 08:40 Dose: 200 mg Documented By: CAMPOS Melatonin (Melatonin 3 Mg Tablet) 6 mg PO BEDTIME PRN PRN Reason: Insomnia Montelukast Sodium (Montelukast Sodium 10 Mg Tablet) 10 mg PO DAILY [facility] Last Admin: 04/10/25 08:39 Dose: 10 mg Documented By: CAMPOS Multivitamins/Vitamin C (Multivitamin Tablet) 1 tab PO DAILY [facility] Last Admin: 04/10/25 08:40 Dose: 1 tab Documented By: CAMPOS Ondansetron HCl (Ondansetron Hcl 4 Mg/2 Ml Vial) 4 mg IVPUSH Q8H PRN PRN Reason: Nausea and Vomiting Pantoprazole Sodium (Pantoprazole Sodium 40 Mg/10 Ml Vial) 40 mg IVPUSH DAILY@0630 [facility] Last Admin: 04/10/25 05:04 Dose: 40 mg Documented By: BOGDAN Pharmacy Consult (Consult Rx Vancomycin Dosing) 1 each MISCELLANE DAILY PRN PRN Reason: Consult order Sodium Chloride (0.9 % Sodium Chloride Flush 3 Ml Syringe) 3 ml IVFLUSH QSHIFT [facility] Last Admin: 04/10/25 08:40 Dose: 3 ml Documented By: CAMPOS Tizanidine HCl (Tizanidine Hcl 4 Mg Tablet) 2 mg PO Q8H PRN PRN Reason: muscle spasticity Trazodone HCl (Trazodone Hcl 100 Mg Tablet) 400 mg PO BEDTIME [facility] Last Admin: 04/09/25 21:17 Dose: 400 mg Documented By: BOGDAN Labs 04/09/25 06:16 04/10/25 06:30 Labs: Laboratory Results - last 24 hr 04/10/25 04/10/25 06:30 11:21 Estim Creat Clear Calc 89.1 Estimated GFR > 60 Vancomycin Trough 14.7 Microbiology Microbiology Results: Microbiology 04/08/25 13:32 Blood Culture - Preliminary Blood - Venous Methicillin Res Staph Aureus 04/08/25 13:32 Blood Culture - Preliminary Blood - Venous Staphylococcus aureus Assessment and Plan (1) Sepsis: Status: Acute Plan 54-year-old female with a PMH significant for HTN, HLD, COPD,?GERD, gout, and lumbar canal stenosis s/p right L3-4 L4-5 laminotomy with partial facetectomy and L5 foraminotomy on 03/14/[address] Bull who presents to the ED with?right-sided lower back and hip pain, generally feeling unwell, and worsening surgical incision site. Pt is admitted to the hospital for treatment and further evaluation of wound infection with sepsis concerning for abscess vs osteo. Surgical incision wound infection with sepsis with severe features Pt s/p uncomplicated L3-5 lumbar decompression on 03/14/25 MRI on 03/23 showed 7 x 6 x 5 cm fluid collection thought to be simple postoperative collection Wound culture gram stain from yesterday showing 4+ staph aureus Meets severe sepsis features with tachycardia and leukocytosis/bandemia with hypotension and lactic acid 4.2 Pt started on broad-spectrum antibiotics and given sepsis bolus fluids based on ideal weight in the ED with improvement to BP and resolution of lactic acidosis Will treat with vancomycin and Zosyn, started 04/08/2025 ESR and CRP severely elevated, concerning for osteo MRI without/with contrast -Multifocal findings of infection and inflammation with small microabscess versus epidural phlegmonous change at L3, and 1 cm left paraspinal abscess versus infected synovial cysts of the lumbosacral junction. Also abnormal signal enhancement of the discitis and osteomyelitis, including L2-L3, where there is mild retrolisthesis. Neurosurgery following:underwent right L3-4, L4-5 Laminotomy, Partial facetectomy and L5 foraminotomy with incidental durotomy on 03/14/25. She now has a wound infection, with wound cultures and blood cultures growing gram + cocci. Pertinent labs, imaging, and vitals have been communicated with the attending neurosurgeon Dr. Bull who believes the patient would most benefit from an ID consult . Follow wound and blood cultures Hyponatremia, mild improved with po intake and hydration. Trend labs HLD:Continue statin HTN Hold clonidine, losartan due to hypotension and continued to soft BP Resume as warranted COPD Not in acute exacerbation Continue home inhalers, montelukast Gout Continue allopurinol Obesity class III BMI 40.5 Encourage weight loss ongoing need:Surgical incision wound infection with sepsis with severe features-on iv antibiotics, monitor renal function electrolytes, neurosurgery and ID following. Quality Stroke Does the patient have a stroke diagnosis?: No VTE Prior VTE?: No VTE Risk Level:: Medical - moderate - high VTE Device Contraindication: Treatment Not Indicated VTE Drug Contraindication: N/A - Med Ordered
[2025-04-10 15:35] VITALS: BP 114/61; PULSE 98; RESP 18; TEMP 526.1; TEMP 979; O2SAT 92
--- NOTE | 2025-04-10 15:44 | HO.PM.IMPN ---
Subjective Subjective Date of Service: 04/10/25 Interval History: Surgical incision wound infection with sepsis with severe feature Review of Systems seems pain improving oob today Physical Exam Vital Signs: Vital Signs: Last Vital Signs Temp 979 F H 04/10/25 15:35 Pulse 98 04/10/25 15:35 Resp 18 04/10/25 15:35 BP 114/61 04/10/25 15:35 Pulse Ox 92 04/10/25 15:35 O2 Del Method Room Air 04/10/25 15:35 BMI result Body Mass Index 40.5 vitals from 04/09 reviewed Appearance: Alert.? Oriented X3.? cvs: rrr, [id number]. res: clear to auscultation ,no rhonchii or wheezing abd: no rebound or guarding ,nt, bs present. back area:Surgical incision site with surrounding warmth and erythema, some purulent and foul-smelling discharge. pic per h&P. ext pulses present , no cyanosis neuro: axo3 , nonfocal. Objective Data Active Medications Acetaminophen (Acetaminophen 325 Mg Tablet) 975 mg PO Q6H [facility] Last Admin: 04/10/25 15:26 Dose: 975 mg Documented By: CAMPOS Acetaminophen/Butalbital/Caffeine (Butalb/Acetamin/Caff 50/325/40 Tablet) 1 tab PO Q4H PRN PRN Reason: Headache Last Admin: 04/09/25 21:15 Dose: 1 tab Documented By: BOGDAN Allopurinol (Allopurinol 100 Mg Tablet) 100 mg PO DAILY [facility] Last Admin: 04/10/25 08:40 Dose: 100 mg Documented By: CAMPOS Atorvastatin Calcium (Atorvastatin Calcium 40 Mg Tablet) 40 mg PO DAILY [facility] Last Admin: 04/10/25 08:40 Dose: 40 mg Documented By: CAMPOS Baclofen (Baclofen 10 Mg Tablet) 10 mg PO DAILY [facility] Last Admin: 04/10/25 08:39 Dose: 10 mg Documented By: CMAPOS Calcium Carbonate (Calcium Carbonate 750 Mg Tab.Chew) 750 mg PO Q4H PRN PRN Reason: Heartburn Cyanocobalamin (Cyanocobalamin (Vitamin B-12) 1,000 Mcg Tablet) 1,000 mcg PO DAILY [facility] Last Admin: 04/10/25 08:40 Dose: 1,000 mcg Documented By: CAMPOS Diclofenac Sodium (Diclofenac Sodium Delayed Rel 75 Mg Tablet.Dr) 75 mg PO BID [facility] Last Admin: 04/10/25 08:39 Dose: 75 mg Documented By: CAMPOS Enoxaparin Sodium (Enoxaparin Sodium 40 Mg/0.4 Ml Syringe) 40 mg SUBCUT Q24H [facility] On Hold: 04/09/25 07:27 Last Admin: 04/08/25 20:56 Dose: 40 mg Documented By: REYNA Hydromorphone HCl (Hydromorphone Hcl 2 Mg Tablet) 4 mg PO Q6H PRN PRN Reason: pain Last Admin: 04/10/25 05:04 Dose: 4 mg Documented By: BOGDAN Piperacillin Sod/Tazobactam (Sod 3.375 gm/ Sodium Chloride) 50 mls @ 100 mls/hr IV Q6H [facility] Last Infusion: 04/10/25 15:21 Dose: Infused Documented By: CAMPOS Vancomycin HCl 750 mg/ Sodium (Chloride) 265 mls @ 265 mls/hr IV Q8H [facility] Last Infusion: 04/10/25 15:21 Dose: Infused Documented By: CAMPOS Magnesium Hydroxide (Milk Of Magnesia 30 Ml Oral.Susp) 30 ml PO DAILY PRN PRN Reason: Constipation Magnesium Oxide (Magnesium Oxide 400 Mg Tablet) 200 mg PO DAILY [facility] Last Admin: 04/10/25 08:40 Dose: 200 mg Documented By: CAMPOS Melatonin (Melatonin 3 Mg Tablet) 6 mg PO BEDTIME PRN PRN Reason: Insomnia Montelukast Sodium (Montelukast Sodium 10 Mg Tablet) 10 mg PO DAILY [facility] Last Admin: 04/10/25 08:39 Dose: 10 mg Documented By: CAMPOS Multivitamins/Vitamin C (Multivitamin Tablet) 1 tab PO DAILY [facility] Last Admin: 04/10/25 08:40 Dose: 1 tab Documented By: CAMPOS Ondansetron HCl (Ondansetron Hcl 4 Mg/2 Ml Vial) 4 mg IVPUSH Q8H PRN PRN Reason: Nausea and Vomiting Pantoprazole Sodium (Pantoprazole Sodium 40 Mg/10 Ml Vial) 40 mg IVPUSH DAILY@0630 [facility] Last Admin: 04/10/25 05:04 Dose: 40 mg Documented By: BOGDAN Pharmacy Consult (Consult Rx Vancomycin Dosing) 1 each MISCELLANE DAILY PRN PRN Reason: Consult order Sodium Chloride (0.9 % Sodium Chloride Flush 3 Ml Syringe) 3 ml IVFLUSH QSHIFT [facility] Last Admin: 04/10/25 08:40 Dose: 3 ml Documented By: CAMPOS Tizanidine HCl (Tizanidine Hcl 4 Mg Tablet) 2 mg PO Q8H PRN PRN Reason: muscle spasticity Trazodone HCl (Trazodone Hcl 100 Mg Tablet) 400 mg PO BEDTIME [facility] Last Admin: 04/09/25 21:17 Dose: 400 mg Documented By: BOGDAN Labs 04/09/25 06:16 04/10/25 06:30 Labs: Laboratory Results - last 24 hr 04/10/25 04/10/25 06:30 11:21 Estim Creat Clear Calc 89.1 Estimated GFR > 60 Vancomycin Trough 14.7 Microbiology Microbiology Results: Microbiology 04/08/25 13:32 Blood Culture - Preliminary Blood - Venous Methicillin Res Staph Aureus 04/08/25 13:32 Blood Culture - Preliminary Blood - Venous Staphylococcus aureus Assessment and Plan (1) Sepsis: Status: Acute Plan 54-year-old female with a PMH significant for HTN, HLD, COPD,?GERD, gout, and lumbar canal stenosis s/p right L3-4 L4-5 laminotomy with partial facetectomy and L5 foraminotomy on 03/14/[address] Bull who presents to the ED with?right-sided lower back and hip pain, generally feeling unwell, and worsening surgical incision site. Pt is admitted to the hospital for treatment and further evaluation of wound infection with sepsis concerning for abscess vs osteo. Surgical incision wound infection with sepsis with severe features Pt s/p uncomplicated L3-5 lumbar decompression on 03/14/25 MRI on 03/23 showed 7 x 6 x 5 cm fluid collection thought to be simple postoperative collection Wound culture gram stain from yesterday showing 4+ staph aureus Meets severe sepsis features with tachycardia and leukocytosis/bandemia with hypotension and lactic acid 4.2 Pt started on broad-spectrum antibiotics and given sepsis bolus fluids based on ideal weight in the ED with improvement to BP and resolution of lactic acidosis Will treat with vancomycin and Zosyn, started 04/08/2025 ESR and CRP severely elevated, concerning for osteo MRI without/with contrast -Multifocal findings of infection and inflammation with small microabscess versus epidural phlegmonous change at L3, and 1 cm left paraspinal abscess versus infected synovial cysts of the lumbosacral junction. Also abnormal signal enhancement of the discitis and osteomyelitis, including L2-L3, where there is mild retrolisthesis. Neurosurgery following:underwent right L3-4, L4-5 Laminotomy, Partial facetectomy and L5 foraminotomy with incidental durotomy on 03/14/25. She now has a wound infection, with wound cultures and blood cultures growing gram + cocci. Pertinent labs, imaging, and vitals have been communicated with the attending neurosurgeon Dr. Bull who believes the patient would most benefit from an ID consult . Follow wound and blood cultures Hyponatremia, mild improved with po intake and hydration. Trend labs HLD:Continue statin HTN Hold clonidine, losartan due to hypotension and continued to soft BP Resume as warranted COPD Not in acute exacerbation Continue home inhalers, montelukast Gout Continue allopurinol Obesity class III BMI 40.5 Encourage weight loss ongoing need:Surgical incision wound infection with sepsis with severe features-on iv antibiotics, monitor renal function electrolytes, neurosurgery and ID following. Quality Stroke Does the patient have a stroke diagnosis?: No VTE Prior VTE?: No VTE Risk Level:: Medical - moderate - high VTE Device Contraindication: Treatment Not Indicated VTE Drug Contraindication: N/A - Med Ordered
[2025-04-10 19:53] VITALS: BP 147/78; PULSE 86; RESP 16; TEMP 36.7; O2SAT 93
[2025-04-10 23:37] VITALS: BP 115/65; PULSE 83; RESP 16; TEMP 37; O2SAT 94
[2025-04-11] VITALS (7 sets, daily range): BP systolic 90–177; BP diastolic 42–81; PULSE 68–86; RESP 16–20; TEMP 36.3–37.2; O2SAT 93–99
--- NOTE | 2025-04-11 07:00 | CA_ITS ---
Transthoracic Echocardiogram Patient (Last, First, Middle): Carey, Alaina Johnston Gender: Female Date of : 1970 Age: 54 Procedure Date: 04/11/2025 Procedure Type: Transthoracic Echocardiogram Location: [facility] [place] Height: 160.02 cm Weight: 103.42 kg BSA: 2.04 m2 Heart Rate: 78 bpm BP: 177 / 81 mmHg Diesel Service Technician: JOSE Referring MD: Uche Luis MD Molding Line Operator: Trung Thompson MD Symptoms: mrsa bacteremia Study Quality: Adequate w contrast ECG Rhythm: Sinus Conclusions: - 1. Technically limited study 2. Valvular vegetations can not be conclusively ruled out on this study 3. Normal LV ejection fraction 55-60% 4. Cardiac valvular Dopplers within normal limits Findings Procedure Information Contrast agent, definity, is being given per protocol without apparent complications. Left Ventricle Normal left ventricular size, thickness, and systolic function. The visually estimated ejection fraction is between 55-60%. Spectral Doppler is indicative of a normal filling pattern. Right Ventricle Normal right ventricular cavity size. Atria The left atrium is normal in size. Interatrial shunt cannot be excluded. The right atrium was not well visualized. Aortic Valve The aortic valve structure and function is likely normal. There is no aortic valve stenosis. There is no aortic valve regurgitation. Mitral Valve The mitral valve was not well visualized. There is no mitral valve regurgitation. There is no mitral valve stenosis. Pulmonic Valve The pulmonic valve was not well visualized. Tricuspid Valve The tricuspid valve was not well visualized. Tricuspid regurgitation envelope is inadequate for calculation of right ventricular systolic pressure. Indeterminate right atrial pressure. Great Vessels All visible segments of the aorta are normal in size. The pulmonary artery was not well visualized. There is no dilatation of the ascending aorta measuring 3.10 cm. Venous The inferior vena cava is normal in size. Pericardium/Pleural The pericardium was not well visualized. Prior Study Comparison No prior study available for comparison. Measurements 2D Linear Measurements IVSd: 1.06 0.6-0.9/0.6-1.0 cm LVIDd: 5.34 3.9-5.3/4.2-5.9 cm LVIDd Index: 2.62 2.4-3.2/2.2-3.1 cm/m2 LVIDs: 4.03 2.0-3.6 cm LVPWd: 1.21 0.7-1.1 cm LA Diam: 4.20 2.7-3.8/3.0-4.0 cm LAIDs Index: 2.06 1.5-2.3 cm/m2 LV Mass: 299.98 67-162/88-224 g LV Mass Index: 147.05 43-95/49-115 g/m2 LVOT Diam: 2.20 3.0+(-)1.3 cm 2D Systolic Function EF 4C: 57.50 >55% EF 2C: 61.30 >55% EF BiP: 57.50 >55% Mitral Valve MV Pk E: 1.10 MV PK A: 1.35 MV Decel Time: 210.00 E/A: 0.80 E'Lateral: 7.07 E'Medial: 5.98 E/E' Med: 18.40 E/E' Lat: 15.60 PHT: 61.00 MVA PHT: 3.61 Decel [place]: 5.25 Aortic Valve AoV Pk Alex: 1.23 AoV Pk Grad: 6.00 JORGE: 3.25 AI Pk Alex: 4.33 AI [place]: 2.43 LVOT LVOT Pk Alex: 1.02 LVOT Mn Alex: 0.72 LVOT VTI: 0.21 LVOT Pk Grad: 4.00 LVOT Mn Grad: 2.00 LVOT Diam: 2.20 LVOT Area: 3.80 Diastolic Function MV Pk E: 1.10 MV Pk A: 1.35 E/A: 0.80 E'Medial: 5.98 E/E' Med: 18.40 E' Laterial: 7.07 E/E' Lat: 15.60 Right Ventricle TAPSE (mm): 22.30 Great Vessels Aorta Sinus of Valsalva: 3.50 2.0-3.5 cm Ao Asc: 3.10 2.1-3.4 cm Pulmonary Valve PV Pk Alex: 0.71 Peak PV Grad: 2.00 Updated in Other Vendor System with Status of Final Trung Thompson MD electronically signed on 04/11/2025 12:09:22 PM with status of Final
[2025-04-11 07:22] LABS: Hematocrit 26.8 % (37.0-47.0); Hemoglobin 9.4 g/dl (12.0-16.0); Mean Corpuscular HGB Conc 35.1 g/dl (31.0-35.0); Mean Corpuscular Hemoglobin 31.0 pg (27.0-33.0); Mean Corpuscular Volume 88.4 fL (80.0-98.0); NRBC Abs Auto 0.000 X10*3/uL (0.0-0.012); NRBC Pct Auto 0.0 /100WBC (0.0-0.2); Platelet Count 118 X10*3/uL (160-400); Red Blood Count 3.03 X10*6/uL (4.20-5.50); White Blood Count 11.4 X10*3/uL (4.8-10.8)
[2025-04-11 07:33] LABS: Alanine Aminotransferase 51 U/L (0-31); Albumin Level 2.6 g/dL (3.5-5.0); Alkaline Phosphatase 122 U/L (39-117); Anion Gap 13 (12-20); Aspartate Amino Transferase 32 U/L (5-31); Blood Urea Nitrogen 15 mg/dL (9-16); Calcium 9.5 mg/dL (8.4-10.2); Carbon Dioxide 25 mmol/L (22-29); Chloride 108 mmol/L (96-108); Creatinine Clr Calc Pharmacy 108.8; Estimated Glomerular Filt Rate > 60; Potassium 3.6 mmol/L (3.3-5.1); Sodium 142 mmol/L (135-145); Total Protein 5.6 g/dL (6.5-8.0)
[2025-04-11] MEDS: Diclofenac Sodium Delayed Rel 75 MG TABLET.DR PO ×2 (08:55→21:27)
[2025-04-11] MEDS: 0.9 % Sodium Chloride Flush 3 ML SYRINGE IVFLUSH ×2 (08:56→21:27)
--- NOTE | 2025-04-11 11:35 | MHC.CM.PN ---
CM MET W/PT TO DISCUSS DISPO AND NEED FOR SENIOR CARE IV ABX D/T SPINAL INFECTION, REF'S PLACED TO [facility] PT WANTS TO DC HOME, PT WILL NEED WOUND CARE WELL, PT REPORTS HER KRISTINA [phone] CAN ASSIST, ID PENDING, CM WILL CONT TO FOLLOW DC NEEDS.
--- NOTE | 2025-04-11 12:17 | HO.NEURO.PN ---
Neurosurgery Operative Note Date of Service: 05/12/25 Narrative: HPI: Vickie is a 54-year-old female who underwent right L3-4, L4-5 Laminotomy, Partial facetectomy and L5 foraminotomy with incidental durotomy on 03/14/25. She is admitted to 4th floor [facility] for continued inpatient management of wound infection with sepsis. Blood cultures and wound culture grew MRSA. She reports that she continues to make progress with her pain. The low back pain is reportedly a bit better today than it was yesterday. She expressed some frustrations that she has not been out of bed except to use the bedside commode since we saw her yesterday. She has been using her IS. She has continued to tolerate her current diet. No chills or worsening malaise / fatigue reported. She was accompanied by her who was at bedside and also expressed concerns regarding the patients lack of mobility out of bed. Vitals (most recent): BP: 127/76, T: 98.1, HR: 68, RR: 18, 02: 99% RA Pertinent labs 04/10/25: WBC: 11.4, AST: 32, ALT: 51, ALK Phos: 122, BUN: 15, Cr: .68 Physical Exam: The patient is A&OX4, and in no acute distress. She is conversant, and sits upright on the side of her bed without issue. Pain with movement seems improved compared to the pain she had yesterday. She maintains full 5/5 strength in her bilateral lower extremities. Her wound was covered with gauze, which was removed for inspection. There was minimal purulent drainage on the dressing. No significant pain elicited during dressing change / inspection of the wound. It still appears to be opened up about 1/2- 1cm in diameter. Looks smaller in diameter than it did yesterday. No notable erythema around incision site. Plan: 54-year-old female who underwent right L3-4, L4-5 Laminotomy, Partial facetectomy and L5 foraminotomy with incidental durotomy on 03/14/25. She now has a wound infection, with wound cultures and blood cultures growing MRSA. We are currently recommending the following: -ID consult, will appreciate recommendations re: Antimicrobial therapy choice & duration, outpatient vs. inpatient etc. -Wound care consult, will appreciate recommendations re: Wound packing -Ambulation with assistance at least 3 x daily up and down the green or around the unit with nursing staff -Pneumatic compression boots at all times when lying in bed -Encourage incentive spirometry q1h -Physical therapy eval & treat -DVT ppx with pneumatic compression boots -Continued IV Vanc/Zosyn -Repeat blood cultures -PICC line when blood cultures are aseptic -Dressing changes at minimum 3 times daily with likely approximated ABD pad or non-adherent gauze. The wound should not be sealed off from air. This was discussed with the attending neurosurgeon Dr. Bull who understands and agrees to this plan. Sumeet Bull MD,PhD [facility]
--- NOTE | 2025-04-11 12:46 | PC.NURSE ---
This RN ambulated patient down [address] with walker and standby assist. Pt stated that she felt more weak than her baseline. pt ambulated back to room into recliner. Sequential devices then placed back on patient. Pts staton socks replaced with yellow socks due to high fall risk score. Pt then educated on incentive spirometer indication and use. Pt then return demonstrated incentive spirometer use to this RN.
--- NOTE | 2025-04-11 13:48 | HO.PM.IMPN ---
Subjective Subjective Date of Service: 04/11/25 Interval History: back pain Physical Exam Vital Signs: Vital Signs: Last Vital Signs Temp 98.1 F 04/11/25 11:50 Pulse 68 04/11/25 11:50 Resp 18 04/11/25 11:50 BP 127/76 04/11/25 11:50 Pulse Ox 99 04/11/25 11:50 O2 Del Method Room Air 04/11/25 11:50 BMI result Body Mass Index 40.5 vitals from 04/09 reviewed Appearance: Alert.? Oriented X3.? cvs: rrr, [id number]. res: clear to auscultation ,no rhonchii or wheezing abd: no rebound or guarding ,nt, bs present. back area:Surgical incision site with surrounding warmth and erythema, some purulent and foul-smelling discharge. pic per h&P. ext pulses present , no cyanosis neuro: axo3 , nonfocal. Objective Data Active Medications Acetaminophen (Acetaminophen 325 Mg Tablet) 975 mg PO Q6H [facility] Last Admin: 04/11/25 08:55 Dose: 975 mg Documented By: LORNE Acetaminophen/Butalbital/Caffeine (Butalb/Acetamin/Caff 50/325/40 Tablet) 1 tab PO Q4H PRN PRN Reason: Headache Last Admin: 04/09/25 21:15 Dose: 1 tab Documented By: BOGDAN Allopurinol (Allopurinol 100 Mg Tablet) 100 mg PO DAILY [facility] Last Admin: 04/11/25 08:54 Dose: 100 mg Documented By: LORNE Atorvastatin Calcium (Atorvastatin Calcium 40 Mg Tablet) 40 mg PO DAILY [facility] Last Admin: 04/11/25 08:55 Dose: 40 mg Documented By: LORNE Baclofen (Baclofen 10 Mg Tablet) 10 mg PO DAILY [facility] Last Admin: 04/11/25 08:55 Dose: 10 mg Documented By: LORNE Calcium Carbonate (Calcium Carbonate 750 Mg Tab.Chew) 750 mg PO Q4H PRN PRN Reason: Heartburn Cyanocobalamin (Cyanocobalamin (Vitamin B-12) 1,000 Mcg Tablet) 1,000 mcg PO DAILY [facility] Last Admin: 04/11/25 08:55 Dose: 1,000 mcg Documented By: LORNE Diclofenac Sodium (Diclofenac Sodium Delayed Rel 75 Mg Tablet.) 75 mg PO BID [facility] Last Admin: 04/11/25 08:55 Dose: 75 mg Documented By: LORNE Enoxaparin Sodium (Enoxaparin Sodium 40 Mg/0.4 Ml Syringe) 40 mg SUBCUT Q24H [facility] On Hold: 04/09/25 07:27 Last Admin: 04/08/25 20:56 Dose: 40 mg Documented By: REYNA Hydromorphone HCl (Hydromorphone Hcl 2 Mg Tablet) 4 mg PO Q6H PRN PRN Reason: pain Last Admin: 04/11/25 02:08 Dose: 4 mg Documented By: BOGDAN Vancomycin HCl 750 mg/ Sodium (Chloride) 265 mls @ 265 mls/hr IV Q8H [facility] Last Admin: 04/11/25 13:43 Dose: 265 mls/hr Documented By: LORNE Magnesium Hydroxide (Milk Of Magnesia 30 Ml Oral.Susp) 30 ml PO DAILY PRN PRN Reason: Constipation Magnesium Oxide (Magnesium Oxide 400 Mg Tablet) 200 mg PO DAILY [facility] Last Admin: 04/11/25 08:54 Dose: 200 mg Documented By: LORNE Melatonin (Melatonin 3 Mg Tablet) 6 mg PO BEDTIME PRN PRN Reason: Insomnia Montelukast Sodium (Montelukast Sodium 10 Mg Tablet) 10 mg PO DAILY [facility] Last Admin: 04/11/25 08:54 Dose: 10 mg Documented By: LORNE Multivitamins/Vitamin C (Multivitamin Tablet) 1 tab PO DAILY [facility] Last Admin: 04/11/25 08:55 Dose: 1 tab Documented By: LORNE Omeprazole (Omeprazole 20 Mg Capsule.) 20 mg PO DAILY@0630 [facility] Ondansetron HCl (Ondansetron Hcl 4 Mg/2 Ml Vial) 4 mg IVPUSH Q8H PRN PRN Reason: Nausea and Vomiting Pharmacy Consult (Consult Rx Vancomycin Dosing) 1 each MISCELLANE DAILY PRN PRN Reason: Consult order Sodium Chloride (0.9 % Sodium Chloride Flush 3 Ml Syringe) 3 ml IVFLUSH QSHIFT [facility] Last Admin: 04/11/25 08:56 Dose: 3 ml Documented By: LORNE Tizanidine HCl (Tizanidine Hcl 4 Mg Tablet) 2 mg PO Q8H PRN PRN Reason: muscle spasticity Trazodone HCl (Trazodone Hcl 100 Mg Tablet) 400 mg PO BEDTIME [facility] Last Admin: 04/10/25 20:37 Dose: 400 mg Documented By: BOGDAN Labs 04/11/25 06:59 04/11/25 06:59 Labs: Laboratory Results - last 24 hr 04/11/25 04/11/25 06:59 11:08 MCV 88.4 MCH 31.0 MCHC 35.1 H RDW 14.2 Plt Count 118 L MPV 9.7 Absolute Nucleated RBC 0.000 Nucleated RBC % (auto) 0.0 Anion Gap 13 Estim Creat Clear Calc 108.8 Estimated GFR > 60 Random Glucose 115 Calcium 9.5 Total Bilirubin 0.7 AST 32 H ALT 51 H Alkaline Phosphatase 122 H Total Protein 5.6 L Albumin 2.6 L Random Vancomycin 13.2 L Microbiology Microbiology Results: Microbiology 04/08/25 13:32 Blood Culture - Final Blood - Venous Methicillin Res Staph Aureus 04/08/25 13:32 Blood Culture - Final Blood - Venous Methicillin Res Staph Aureus Assessment and Plan (1) Sepsis: Status: Acute Plan 54F PMH htn, hld, copd, getd, gout, lumbar canal stenosis s/p right L3-4 L4-5 laminotomy with partial facetectomy and l5 formainotomy on 03/14/25 now complicated by mrsa bacteremia microabsecss, diskitis, myositis sepsis due to mrsa bacteremia, diskitis, myositis, microabscesses continue vanc follow up repeat cutlures ID, echo neurosurgery following Hypertension Holding losartan and clonidine due to hypotension COPD Stable Gout Allopurinol Morbid obesity Weight loss recommended DVT prophylaxis Lovenox Full Code reason for continued hospitalization: bactermeia Quality Stroke Does the patient have a stroke diagnosis?: No VTE Prior VTE?: No VTE Risk Level:: Medical - moderate - high VTE Device Contraindication: Treatment Not Indicated VTE Drug Contraindication: N/A - Med Ordered
--- NOTE | 2025-04-11 14:09 | P.CNID_ITS ---
History of Present Illness Data of Consult Service Date: 04/10/25 Requesting physician: Grayson Truong Primary Care Provider: Festus Lang PA-C HPI Reason for consult: MRSA sepsis She presents with chills and not feeling well. She had seen her Neurosurgery group on 04/07 and given Bactrim for some yellowish wound drainage from recent back surgery site. She had right L3-L4 /L4-L5 laminectomy and partial facetectomy and L5 foraminectomy for degenerative disease/spinal stenosis. She now feels as though she is weak and has chills. She has pulse 92 and WBC 14,000 on arrival. Blood cultures 04/08 and wound MRSA resistant to Doxycycline. Review of Systems 2 Review of Systems: Yes all other systems are reviewed and are negative PMFSH Past Medical History Medical History Anxiety MDD (major depressive disorder) Gout GERD (gastroesophageal reflux disease) Ambulates with cane Smoker Hyperuricemia Asthma Obese Osteoarthritis Trigger finger Carpal tunnel syndrome Hyperlipidemia LDL goal <100 Essential hypertension Hyperlipidemia Cellulitis, umbilical Family History Family History Father Diabetes Hypertension Stroke Heart attack, Onset Age: 50 Mother Multiple sclerosis Brother In good health Son In good health Son In good health Other Patient denies medical problems Family history: reviewed and not pertinent Surgical History Surgical History History of esophagogastroduodenoscopy (EGD) Hx of colonoscopy History of laparoscopic appendectomy History of foot surgery History of carpal tunnel release H/O: hysterectomy Social History Social History Household Members: Spouse and Children Housing: Apartment Are you a primary healthcare administration internship to a significant other at home: No Do you presently have visiting nurse or other home services: No Alcohol intake: current Alcohol intake frequency: holidays/special occasions only Alcohol type: beer Patient Tobacco Use Status: Current everyday Tobacco user Tobacco use type: Cigarette Cigarette Packs Per Day: 0.5 Cigarettes Per Day: 10.0 Years Smoked: 46 e-Cigarette/Vaping Use: Never Used Second Hand Smoke Exposure: Yes service: No Current occupational status: disabled Cognitive needs: No Hearing needs: No Vision needs: Yes (glasses) Meds Allergies Allergy/AdvReac Type Severity Reaction Status Date / Time gabapentin Allergy Intermediate Nausea and Verified 04/08/25 13:14 Vomiting morphine (Morphine) Allergy Intermediate VOMITING Verified 04/08/25 13:14 oxycodone (Percocet) Allergy Intermediate Vomiting Verified 04/08/25 13:14 methocarbamol AdvReac Intermediate GI upset Verified 04/08/25 13:14 Active Medications: Current Medications Acetaminophen (Acetaminophen 325 Mg Tablet) 975 mg PO Q6H [facility] Last Admin: 04/11/25 08:55 Dose: 975 mg Acetaminophen/Butalbital/Caffeine (Butalb/Acetamin/Caff 50/325/40 Tablet) 1 tab PO Q4H PRN PRN Reason: Headache Last Admin: 04/09/25 21:15 Dose: 1 tab Allopurinol (Allopurinol 100 Mg Tablet) 100 mg PO DAILY [facility] Last Admin: 04/11/25 08:54 Dose: 100 mg Atorvastatin Calcium (Atorvastatin Calcium 40 Mg Tablet) 40 mg PO DAILY [facility] Last Admin: 04/11/25 08:55 Dose: 40 mg Baclofen (Baclofen 10 Mg Tablet) 10 mg PO DAILY [facility] Last Admin: 04/11/25 08:55 Dose: 10 mg Calcium Carbonate (Calcium Carbonate 750 Mg Tab.Chew) 750 mg PO Q4H PRN PRN Reason: Heartburn Cyanocobalamin (Cyanocobalamin (Vitamin B-12) 1,000 Mcg Tablet) 1,000 mcg PO DAILY [facility] Last Admin: 04/11/25 08:55 Dose: 1,000 mcg Diclofenac Sodium (Diclofenac Sodium Delayed Rel 75 Mg Tablet.Dr) 75 mg PO BID [facility] Last Admin: 04/11/25 08:55 Dose: 75 mg Enoxaparin Sodium (Enoxaparin Sodium 40 Mg/0.4 Ml Syringe) 40 mg SUBCUT Q24H [facility] On Hold: 04/09/25 07:27 Last Admin: 04/08/25 20:56 Dose: 40 mg Hydromorphone HCl (Hydromorphone Hcl 2 Mg Tablet) 4 mg PO Q6H PRN PRN Reason: pain Last Admin: 04/11/25 02:08 Dose: 4 mg Daptomycin 828.8 mg/ Sodium (Chloride) 66.576 mls @ 100 mls/hr IV Q24H [facility] Magnesium Hydroxide (Milk Of Magnesia 30 Ml Oral.Susp) 30 ml PO DAILY PRN PRN Reason: Constipation Magnesium Oxide (Magnesium Oxide 400 Mg Tablet) 200 mg PO DAILY [facility] Last Admin: 04/11/25 08:54 Dose: 200 mg Melatonin (Melatonin 3 Mg Tablet) 6 mg PO BEDTIME PRN PRN Reason: Insomnia Montelukast Sodium (Montelukast Sodium 10 Mg Tablet) 10 mg PO DAILY [facility] Last Admin: 04/11/25 08:54 Dose: 10 mg Multivitamins/Vitamin C (Multivitamin Tablet) 1 tab PO DAILY [facility] Last Admin: 04/11/25 08:55 Dose: 1 tab Omeprazole (Omeprazole 20 Mg Capsule.Dr) 20 mg PO DAILY@0630 [facility] Ondansetron HCl (Ondansetron Hcl 4 Mg/2 Ml Vial) 4 mg IVPUSH Q8H PRN PRN Reason: Nausea and Vomiting Sodium Chloride (0.9 % Sodium Chloride Flush 3 Ml Syringe) 3 ml IVFLUSH QSHIFT [facility] Last Admin: 04/11/25 08:56 Dose: 3 ml Tizanidine HCl (Tizanidine Hcl 4 Mg Tablet) 2 mg PO Q8H PRN PRN Reason: muscle spasticity Trazodone HCl (Trazodone Hcl 100 Mg Tablet) 400 mg PO BEDTIME [facility] Last Admin: 04/10/25 20:37 Dose: 400 mg Home Medications ?Medication ?Instructions ?Recorded ?Confirmed ?Last Taken ?Type multivitamin 1 tab PO DAILY 07/31/2203/13 Unknown History omega-3 fatty acids 500 mg capsule 500 mg PO DAILY 04/08/25 03/06/25 History tizanidine 2 mg tablet 2 mg PO Q8H PRN muscle spast icity 03/01/25 04/08/25 Unknown History baclofen 10 mg tablet 10 mg PO DAILY 04/08/2503/13 Unknown History hydrocodone 5 mg-acetaminophen 325 1 - 2 tab PO Q6H MI N pain 04/08/25 04/08/25 Unknown History mg tablet hydromorphone 4 mg tablet 4 mg PO Q6H PRN pain 5 04/08/25 Unknown History Physical Exam 2 Vital Signs: Vital Signs: Last Vital Signs Temp 98.1 F 07/01/25 11:50 Pulse 68 04/11/25 11:50 Resp 18 04/11/25 11:50 BP 127/76 04/11/25 11:50 Pulse Ox 99 04/11/25 11:50 O2 Del Method Room Air 04/11/25 11:50 BMI result Body Mass Index 40.5 Back/Spine/Pelvis: Other: area with some serosanguinous discharge Results Labs 04/11/25 06:59 04/11/25 06:59 Labs: Short CBC 04/11/25 Range/Units 06:59 WBC 11.4 H (4.8-10.8) X10*3/uL Hgb 9.4 L (12.0-16.0) g/dl Hct 26.8 L (37.0-47.0) % Plt Count 118 L (160-400) X10*3/uL BMP 04/11/25 06:59 Sodium 142 Potassium 3.6 Chloride 108 Carbon Dioxide 25 BUN 15 Creatinine 0.68 Calcium 9.5 Liver Function 04/11/25 Range/Units 06:59 Total Bilirubin 0.7 (0.0-1.0) mg/dL AST 32 H (5-31) U/L ALT 51 H (0-31) U/L Alkaline Phosphatase 122 H (39-117) U/L Albumin 2.6 L (3.5-5.0) g/dL Microbiology Microbiology Results: Microbiology 04/08/25 13:32 Blood - Venous Blood Culture - Final Methicillin Res Staph Aureus 04/08/25 13:32 Blood - Venous Blood Culture - Final Methicillin Res Staph Aureus Assessment and Plan (1) Sepsis: Status: Acute Plan L3 phlegmon/abscess/OM on MRI MRSA MRSA bacteremia If Vancomycin levels not 15-20 then change to Daptomycin 8 mg/kg/day pharmacy to adjust and put input on for best dosing in bacteremia/OM patient. Also if TTE not adequate study would get LIONEL check for IE since suspicion moderate,not low. Neurosurgery is following and will do or arrange debridement/drainage of area if needed per their opinion and patients clinical course. May hold statin while on Daptomycin. 8 weeks Daptomycin likely and check weekly CK and creatinine. Will likely follow with po antibiotics, linezolid or sulfa.
[2025-04-11] MEDS: DAPTOmycin 600 MG in 0.9 % Sodium Chloride 50 ML 93.12 MG IV (21:27)
[2025-04-12] VITALS (8 sets, daily range): BP systolic 118–173; BP diastolic 70–95; PULSE 75–91; RESP 16–18; TEMP 36.2–37.1; O2SAT 92–96
[2025-04-12 06:17] LABS: Hematocrit 28.3 % (37.0-47.0); Hemoglobin 9.8 g/dl (12.0-16.0); Mean Corpuscular HGB Conc 34.6 g/dl (31.0-35.0); Mean Corpuscular Hemoglobin 30.6 pg (27.0-33.0); Mean Corpuscular Volume 88.4 fL (80.0-98.0); NRBC Abs Auto 0.000 X10*3/uL (0.0-0.012); NRBC Pct Auto 0.0 /100WBC (0.0-0.2); Platelet Count 139 X10*3/uL (160-400); Red Blood Count 3.20 X10*6/uL (4.20-5.50); White Blood Count 14.1 X10*3/uL (4.8-10.8)
[2025-04-12 06:35] LABS: Anion Gap 12 (12-20); Blood Urea Nitrogen 11 mg/dL (9-16); Calcium 9.7 mg/dL (8.4-10.2); Carbon Dioxide 25 mmol/L (22-29); Chloride 105 mmol/L (96-108); Creatinine Clr Calc Pharmacy 121.3; Estimated Glomerular Filt Rate > 60; Potassium 3.1 mmol/L (3.3-5.1); Sodium 139 mmol/L (135-145)
--- NOTE | 2025-04-12 07:07 | HO.NEUROPN_ITS ---
Neurosurgery Operative Note Date of Service: 04/12/25 Narrative: HPI: Vickie is a 54-year-old female who underwent right L3-4, L4-5 Laminotomy, Partial facetectomy and L5 foraminotomy with incidental durotomy on 03/14/25. She is admitted to 4th floor [facility] for continued inpatient management of wound infection with sepsis. Blood cultures and wound culture grew MRSA. Repeat blood cultures were taken yesterday showing preliminary results of gram (+) cocci. Transthoracic echocardiogram was not able to rule out endocarditis/vegetations. ID suggested LIONEL to r/o IE. ID also recommended transition to Daptomycin. Today, the patient is seen sitting upright in her bedside chair on . She reports that she continues to have some low back pain, which is fairly consistent in nature. She does feel like she continues to physically feel better each day. She has been up out of bed and ambulating around the unit with nursing staff. She also has been getting up and going to the restroom versus using the bedside commode per her report. Physical Exam: The patient is A&OX4, and in no acute distress. She is conversant, and sits upright on the side of her bed without issue. Strength of the bilateral lower extremities remains full. Her posterior wound dressing was removed, for wound inspection. Her wound continues to look better day-by-day. There is very minimal drainage noted on the nonadherent gauze. No erythema surrounding the incision site. Wound remains open about 1/2-1cm. Plan: 54-year-old female who underwent right L3-4, L4-5 Laminotomy, Partial facetectomy and L5 foraminotomy with incidental durotomy on 03/14/25. She now has a wound infection, with wound cultures and blood cultures growing MRSA. We are currently recommending the following: -Wound care follow up consult placed, will appreciate recommendations re: Wound packing. -Dressing changes at minimum 3 times daily with ABD pad or non-adherent gauze. The wound should not be sealed off from air. -Ambulation with assistance at least 3 x daily up and down the green or around the unit with nursing staff -Encourage incentive spirometry q1h -Physical therapy eval & treat -DVT ppx with pneumatic compression boots -Continued IV Daptomycin -Repeat blood cultures until aseptic -PICC line when blood cultures are aseptic This was discussed with the attending neurosurgeon Dr. Bull who understands and agrees to this plan. Sumeet Bull MD,PhD [facility]
[2025-04-12] MEDS: Potassium Chloride ER 20 MEQ TAB.ER.PRT 40 MEQ PO (09:26)
[2025-04-12] MEDS: Diclofenac Sodium Delayed Rel 75 MG TABLET.DR PO ×2 (09:27→20:12)
--- NOTE | 2025-04-12 09:51 | HO.PM.IMPN ---
Subjective Subjective Date of Service: 04/12/25 Interval History: back pain Physical Exam Vital Signs: Vital Signs: Last Vital Signs Temp 97.6 F 04/12/25 06:57 Pulse 84 04/12/25 06:57 Resp 16 04/12/25 06:57 BP 151/83 H 04/12/25 06:57 Pulse Ox 96 04/12/25 06:57 O2 Del Method Room Air 04/12/25 06:57 BMI result Body Mass Index 40.5 Back/Spine/Pelvis: Other: area with some serosanguinous discharge Objective Data Active Medications Acetaminophen (Acetaminophen 325 Mg Tablet) 975 mg PO Q6H [facility] Last Admin: 04/12/25 09:26 Dose: 975 mg Documented By: CORIN Acetaminophen/Butalbital/Caffeine (Butalb/Acetamin/Caff 50/325/40 Tablet) 1 tab PO Q4H PRN PRN Reason: Headache Last Admin: 04/09/25 21:15 Dose: 1 tab Documented By: BOGDAN Allopurinol (Allopurinol 100 Mg Tablet) 100 mg PO DAILY [facility] Last Admin: 04/12/25 09:26 Dose: 100 mg Documented By: CORIN Atorvastatin Calcium (Atorvastatin Calcium 40 Mg Tablet) 40 mg PO DAILY [facility] Last Admin: 04/12/25 09:27 Dose: 40 mg Documented By: CORIN Baclofen (Baclofen 10 Mg Tablet) 10 mg PO DAILY [facility] Last Admin: 04/12/25 09:27 Dose: 10 mg Documented By: CORIN Calcium Carbonate (Calcium Carbonate 750 Mg Tab.Chew) 750 mg PO Q4H PRN PRN Reason: Heartburn Cyanocobalamin (Cyanocobalamin (Vitamin B-12) 1,000 Mcg Tablet) 1,000 mcg PO DAILY [facility] Last Admin: 04/11/25 08:55 Dose: 1,000 mcg Documented By: LORNE Diclofenac Sodium (Diclofenac Sodium Delayed Rel 75 Mg Tablet.) 75 mg PO BID [facility] Last Admin: 04/12/25 09:27 Dose: 75 mg Documented By: CORIN Enoxaparin Sodium (Enoxaparin Sodium 40 Mg/0.4 Ml Syringe) 40 mg SUBCUT Q24H [facility] On Hold: 04/09/25 07:27 Last Admin: 04/08/25 20:56 Dose: 40 mg Documented By: REYNA Hydromorphone HCl (Hydromorphone Hcl 2 Mg Tablet) 4 mg PO Q6H PRN PRN Reason: pain Last Admin: 04/12/25 06:21 Dose: 4 mg Documented By: MELISSA Daptomycin 600 mg/ Sodium (Chloride) 62 mls @ 93.116 mls/hr IV Q24H [facility] Last Infusion: 04/11/25 22:23 Dose: Infused Documented By: MELISSA Magnesium Hydroxide (Milk Of Magnesia 30 Ml Oral.Susp) 30 ml PO DAILY PRN PRN Reason: Constipation Magnesium Oxide (Magnesium Oxide 400 Mg Tablet) 200 mg PO DAILY [facility] Last Admin: 04/12/25 09:27 Dose: 200 mg Documented By: CORIN Melatonin (Melatonin 3 Mg Tablet) 6 mg PO BEDTIME PRN PRN Reason: Insomnia Montelukast Sodium (Montelukast Sodium 10 Mg Tablet) 10 mg PO DAILY [facility] Last Admin: 04/12/25 09:26 Dose: 10 mg Documented By: CORIN Multivitamins/Vitamin C (Multivitamin Tablet) 1 tab PO DAILY [facility] Last Admin: 04/12/25 09:27 Dose: 1 tab Documented By: CORIN Omeprazole (Omeprazole 20 Mg Capsule.Dr) 20 mg PO DAILY@0630 [facility] Last Admin: 04/12/25 06:21 Dose: 20 mg Documented By: MELISSA Ondansetron HCl (Ondansetron Hcl 4 Mg/2 Ml Vial) 4 mg IVPUSH Q8H PRN PRN Reason: Nausea and Vomiting Sodium Chloride (0.9 % Sodium Chloride Flush 3 Ml Syringe) 3 ml IVFLUSH QSHIFT [facility] Last Admin: 04/11/25 21:27 Dose: 3 ml Documented By: MELISSA Tizanidine HCl (Tizanidine Hcl 4 Mg Tablet) 2 mg PO Q8H PRN PRN Reason: muscle spasticity Last Admin: 04/12/25 09:36 Dose: 2 mg Documented By: CORIN Trazodone HCl (Trazodone Hcl 100 Mg Tablet) 400 mg PO BEDTIME [facility] Last Admin: 04/11/25 21:27 Dose: 400 mg Documented By: MELISSA Labs 04/12/25 05:53 04/12/25 05:53 Labs: Laboratory Results - last 24 hr 04/11/25 04/12/25 11:08 05:53 MCV 88.4 MCH 30.6 MCHC 34.6 RDW 14.2 Plt Count 139 L MPV 9.8 Absolute Nucleated RBC 0.000 Nucleated RBC % (auto) 0.0 Anion Gap 12 Estim Creat Clear Calc 121.3 Estimated GFR > 60 Random Glucose 126 H Calcium 9.7 Random Vancomycin 13.2 L Microbiology Microbiology Results: Microbiology 04/11/25 09:35 Blood Culture - Preliminary Blood - Venous Gram positive cocci 04/08/25 13:32 Blood Culture - Final Blood - Venous Methicillin Res Staph Aureus 04/08/25 13:32 Blood Culture - Final Blood - Venous Methicillin Res Staph Aureus Assessment and Plan (1) Sepsis: Status: Acute Plan 54F PMH htn, hld, copd, getd, gout, lumbar canal stenosis s/p right L3-4 L4-5 laminotomy with partial facetectomy and l5 formainotomy on 03/14/25 now complicated by mrsa bacteremia microabsecss, diskitis, myositis sepsis due to mrsa bacteremia, diskitis, myositis, microabscesses ID appreciated, change to dapto (hold statin, monitor cpk), TTE poor study, cardio eval for possible LIONEL, likely 8 weeks from negative culture iv abx at home, still positive, repeating today, 04/12/25 neurosurgery following HLD hold statin while on dapto Hypertension losartan hypokalemia replace and monitor COPD Stable Gout Allopurinol Morbid obesity Weight loss recommended DVT prophylaxis Lovenox Full Code reason for continued hospitalization: bacteremia Quality Stroke Does the patient have a stroke diagnosis?: No VTE Prior VTE?: No VTE Risk Level:: Medical - moderate - high VTE Device Contraindication: Treatment Not Indicated VTE Drug Contraindication: N/A - Med Ordered
--- NOTE | 2025-04-12 10:23 | P.CONCA_ITS ---
History of Present Illness History of Present Illness Date of Service: 04/12/25 Requesting physician: Uche Luis Consult reason: other (MRSA bacteremia) Chief complaint: Spinal Infection Narrative: I was consulted to see Vickie in cardiology consultation today for considering transesophageal echocardiogram. Patient is a 54 year female who underwent spine surgery for lumbar radiculopathy in early March. Subsequently developed more pain and wound drainage and subsequently noted to have MRSA infection and abscess in the paraspinal space. Patient subsequently had bacteremia with MRSA. She had persistent bacteremia in the 2nd set of blood cultures. Third set of blood cultures were done today after change of antibiotics. Patient does not have an ongoing fever or chills. Patient denies any other complaints. She has never had any cardiac issues. She underwent an echocardiogram yesterday which was suboptimal to detect for endocarditis. Cardiology consult was sought for possible LIONEL. Review of Systems 2 Constitutional: Constitutional: Denies chills, Reports fatigue, Denies fever(s) and Reports malaise Eyes: Eyes: Denies no additional eye complaints Cardiovascular: Cardiovascular: Denies no additional cardiovascular complaints Respiratory: Respiratory: Denies no additional respiratory complaints Gastrointestinal: Gastrointestinal: Denies no additional gastrointestinal complaints Musculoskeletal: Musculoskeletal: Reports back pain Integumentary/Breasts: Skin/Breast: Denies system reviewed and no additional complaints, except as docu Neurologic: Denies system reviewed and no additional complaints, except as documented Psychiatric: Psychiatric: Denies no additional psychiatric complaints Endocrine: Endocrine: Reports fatigue PMFSH Past Medical History Medical History Anxiety MDD (major depressive disorder) Gout GERD (gastroesophageal reflux disease) Ambulates with cane Smoker Hyperuricemia Asthma Obese Osteoarthritis Trigger finger Carpal tunnel syndrome Hyperlipidemia LDL goal <100 Essential hypertension Hyperlipidemia Cellulitis, umbilical Family History Family History Father Diabetes Hypertension Stroke Heart attack, Onset Age: 50 Mother Multiple sclerosis Brother In good health Son In good health Son In good health Other Patient denies medical problems Family history: reviewed and not pertinent Surgical History Surgical History History of esophagogastroduodenoscopy (EGD) Hx of colonoscopy History of laparoscopic appendectomy History of foot surgery History of carpal tunnel release H/O: hysterectomy Social History Social History Household Members: Spouse and Children Housing: Apartment Are you a primary technical healthcare consultant to a significant other at home: No Do you presently have visiting nurse or other home services: No Alcohol intake: current Alcohol intake frequency: holidays/special occasions only Alcohol type: beer Patient Tobacco Use Status: Current everyday Tobacco user Tobacco use type: Cigarette Cigarette Packs Per Day: 0.5 Cigarettes Per Day: 10.0 Years Smoked: 46 e-Cigarette/Vaping Use: Never Used Second Hand Smoke Exposure: Yes service: No Current occupational status: disabled Cognitive needs: No Hearing needs: No Vision needs: Yes (glasses) Meds Allergies Allergy/AdvReac Type Severity Reaction Status Date / Time gabapentin Allergy Intermediate Nausea and Verified 04/08/25 13:14 Vomiting morphine (Morphine) Allergy Intermediate VOMITING Verified 04/08/25 13:14 oxycodone (Percocet) Allergy Intermediate Vomiting Verified 04/08/25 13:14 methocarbamol AdvReac Intermediate GI upset Verified 04/08/25 13:14 Active Medications: Current Medications Acetaminophen (Acetaminophen 325 Mg Tablet) 975 mg PO Q6H [facility] Last Admin: 04/12/25 09:26 Dose: 975 mg Acetaminophen/Butalbital/Caffeine (Butalb/Acetamin/Caff 50/325/40 Tablet) 1 tab PO Q4H PRN PRN Reason: Headache Last Admin: 04/09/25 21:15 Dose: 1 tab Allopurinol (Allopurinol 100 Mg Tablet) 100 mg PO DAILY [facility] Last Admin: 04/12/25 09:26 Dose: 100 mg Baclofen (Baclofen 10 Mg Tablet) 10 mg PO DAILY [facility] Last Admin: 04/12/25 09:27 Dose: 10 mg Calcium Carbonate (Calcium Carbonate 750 Mg Tab.Chew) 750 mg PO Q4H PRN PRN Reason: Heartburn Cyanocobalamin (Cyanocobalamin (Vitamin B-12) 1,000 Mcg Tablet) 1,000 mcg PO DAILY [facility] Last Admin: 04/11/25 08:55 Dose: 1,000 mcg Diclofenac Sodium (Diclofenac Sodium Delayed Rel 75 Mg Tablet.Dr) 75 mg PO BID [facility] Last Admin: 04/12/25 09:27 Dose: 75 mg Enoxaparin Sodium (Enoxaparin Sodium 40 Mg/0.4 Ml Syringe) 40 mg SUBCUT Q24H [facility] On Hold: 04/09/25 07:27 Last Admin: 04/08/25 20:56 Dose: 40 mg Hydromorphone HCl (Hydromorphone Hcl 2 Mg Tablet) 4 mg PO Q6H PRN PRN Reason: pain Last Admin: 04/12/25 06:21 Dose: 4 mg Daptomycin 600 mg/ Sodium (Chloride) 62 mls @ 93.116 mls/hr IV Q24H [facility] Last Infusion: 04/11/25 22:23 Dose: Infused Losartan Potassium (Losartan Potassium 50 Mg Tablet) 50 mg PO DAILY [facility]; Protocol Magnesium Hydroxide (Milk Of Magnesia 30 Ml Oral.Susp) 30 ml PO DAILY PRN PRN Reason: Constipation Magnesium Oxide (Magnesium Oxide 400 Mg Tablet) 200 mg PO DAILY [facility] Last Admin: 04/12/25 09:27 Dose: 200 mg Melatonin (Melatonin 3 Mg Tablet) 6 mg PO BEDTIME PRN PRN Reason: Insomnia Montelukast Sodium (Montelukast Sodium 10 Mg Tablet) 10 mg PO DAILY [facility] Last Admin: 04/12/25 09:26 Dose: 10 mg Multivitamins/Vitamin C (Multivitamin Tablet) 1 tab PO DAILY [facility] Last Admin: 04/12/25 09:27 Dose: 1 tab Omeprazole (Omeprazole 20 Mg Capsule.Dr) 20 mg PO DAILY@0630 [facility] Last Admin: 04/12/25 06:21 Dose: 20 mg Ondansetron HCl (Ondansetron Hcl 4 Mg/2 Ml Vial) 4 mg IVPUSH Q8H PRN PRN Reason: Nausea and Vomiting Sodium Chloride (0.9 % Sodium Chloride Flush 3 Ml Syringe) 3 ml IVFLUSH QSHIFT [facility] Last Admin: 04/11/25 21:27 Dose: 3 ml Tizanidine HCl (Tizanidine Hcl 4 Mg Tablet) 2 mg PO Q8H PRN PRN Reason: muscle spasticity Last Admin: 04/12/25 09:36 Dose: 2 mg Trazodone HCl (Trazodone Hcl 100 Mg Tablet) 400 mg PO BEDTIME [facility] Last Admin: 04/11/25 21:27 Dose: 400 mg Home Medications ?Medication ?Instructions ?Recorded ?Confirmed ?Last Taken ?Type multivitamin 1 tab PO DAILY 07/31/2203/13 Unknown History omega-3 fatty acids 500 mg capsule 500 mg PO DAILY 04/08/25 03/06/25 History tizanidine 2 mg tablet 2 mg PO Q8H PRN muscle spast icity 03/01/25 04/08/25 Unknown History baclofen 10 mg tablet 10 mg PO DAILY 04/08/2503/13 Unknown History hydrocodone 5 mg-acetaminophen 325 1 - 2 tab PO Q6H [place] N pain 04/08/25 04/08/25 Unknown History mg tablet hydromorphone 4 mg tablet 4 mg PO Q6H PRN pain 5 04/08/25 Unknown History Physical Exam 2 Vital Signs: Vital Signs: Last Vital Signs Temp 97.6 F 04/12/25 06:57 Pulse 84 04/12/25 06:57 Resp 16 04/12/25 06:57 BP 151/83 H 04/12/25 06:57 Pulse Ox 96 04/12/25 06:57 O2 Del Method Room Air 04/12/25 06:57 BMI result Body Mass Index 40.5 Const: General: cooperative, comfortable, no acute distress, alert and awake Nutritional Appearance: obese Orientation/consciousness: patient oriented x3 HEENT: Head: Yes normocephalic and Yes atraumatic Neck: Neck: Yes trachea midline, Yes supple and Yes no JVD Resp: Effort & Inspection: normal respiratory effort Auscultation: clear to auscultation bilaterally Cardio: Jugular venous distension: no JVD Rate: regular rate Rhythm: r egular rhythm Heart sounds: S1 normal heart sound present, S2 normal heart sound present, no click, no gallops and no murmurs GI: Auscultation: normal bowel sounds Skin: General skin exam: no rashes or lesions noted Neuro: General: patient oriented x3 and no focal motor deficits Extrem: General: Yes no clubbing, cyanosis or edema Objective Labs and Meds 04/12/25 05:53 04/12/25 05:53 Lab results: Laboratory Results - last 24 hr 04/11/25 04/12/25 11:08 05:53 WBC 14.1 H RBC 3.20 L Hgb 9.8 L Hct 28.3 L MCV 88.4 MCH 30.6 MCHC 34.6 RDW 14.2 Plt Count 139 L MPV 9.8 Absolute Nucleated RBC 0.000 Nucleated RBC % (auto) 0.0 Sodium 139 Potassium 3.1 L Chloride 105 Carbon Dioxide 25 Anion Gap 12 BUN 11 Creatinine 0.61 Estim Creat Clear Calc 121.3 Estimated GFR > 60 Random Glucose 126 H Calcium 9.7 Random Vancomycin 13.2 L Assessment and Plan (1) Sepsis: Status: Acute Sepsis related to MRSA bacteremia related to her spinal abscess secondary to surgical site infection. Patient has persistent bacteremia by 2nd blood culture but antibiotics were then change. Her 3rd set of blood cultures are pending. She has no signs of overall fever or chills or any ongoing sepsis at this point time. She does have back pain related to her infection. She does not have any cardiac murmurs and echocardiogram did not reveal any significant valvular regurgitation that would suggest an ongoing cardiac valvular infection although echo suboptimal to rule out endocarditis. If she does have persistent bacteremia I think we can pursue a transesophageal echocardiogram to assess for intracardiac vegetations. This was discussed with the patient. We discussed the procedure of LIONEL including the indication, risks, benefits and alternatives. She understands. Will await the results of blood cultures. Will follow with 2 as need be Procedures Date of Service Date of Service: 04/12/25
--- NOTE | 2025-04-12 10:57 | MHC.CM.PN ---
Per ROUNDS discussion, Patient is not yet medically cleared for dc (repeat cultures are positive); home with services is the goal and CM will continue to follow.
[2025-04-12] MEDS: 0.9 % Sodium Chloride Flush 3 ML SYRINGE IVFLUSH ×2 (16:19→16:21)
--- NOTE | 2025-04-12 17:35 | HO.WOUND ---
Wound Consult: Initial 54yr old female admitted to [facility] on 04/08/25 - See progress notes and H&P for detailed history.? Wound consult placed for Lumbar surgical site dehiscence.? Per Provider request to assess for need for packing and topical recommendations. Patient agreeable to assessment and photo documentation.? Lumbar Area Etiology: ?Dehiscence Surgical Site ? Measurements: 4cm x 1cm x 3.5cm with a tunnel at 12 o'clock max depth of 6cm with gentle probing Wound Bed: area that is visible is moist pink with then veil of yellow slough - intact dark suture noted to wound edge Drainage / Odor: No odor noted - moderate amount of yellow staton drainage Edges: ? open and unattached Sonia wound: Intact no erythema,? No Induration, Fluctuance or Warmth noted Pain: pain and tenderness reported when packed Goals of Treatment: ? Light packing to aid in moisture management and allow for moist wound healing Discussed topical recommendations with GM Frey - agreeable to light packing to allow for healing. Filling the space given the size (6cm) will decrease the amount of pooling that can occur and allowing the wound to provide autolytic debridement and move towards healing. The antimicrobial properties will be beneficial to the wound bed. Recommendations: 1. Turn and Reposition every 2 hours and as needed for patient comfort.? Use pillows or wedges to support off loading positions. 2. Off Load all bony prominences with use of pillows and heel boots if needed.? Apply Preventative foams where needed. ? 3. Monitor for incontinence and moisture control, use barrier creams when needed for prevention and treatment. 4. Provide adequate and supplemental nutrition.? 5. Order low air loss mattress. 6. When applicable maintain blood glucose levels per Providers order. Lumbar Back - Gently cleanse with NS moist gauze, Pat dry.? Apply skin prep barrier to periwound, lightly pack with Durafiber AG, (Spiral cut the sheet into one piece) be sure to leave a wick for easy removal.? Cover with dry gauze and ABD Pad dressing.? Change Daily while inpatient. Off Load Pressure with Q2 hr turns and use of pillows when in bed. Re-consult wound care Nurse for wound deterioration or wound changes.
[2025-04-12] MEDS: DAPTOmycin 600 MG in 0.9 % Sodium Chloride 50 ML 93.16 MG IV (20:13)
[2025-04-13 03:26] VITALS: BP 158/79; PULSE 89; RESP 16; TEMP 36.9; O2SAT 93
[2025-04-13 06:44] LABS: Creatinine Clr Calc Pharmacy 127.5; Estimated Glomerular Filt Rate > 60
[2025-04-13 07:14] VITALS: BP 166/74; PULSE 84; RESP 18; TEMP 36.6; O2SAT 94
--- NOTE | 2025-04-13 08:45 | MHC.CM.PN ---
EMR REVIEWED, PT W/SPINAL INFECTION, BC'S REMAIN POSITIVE, PT SWITCHED TO IV DAPTO 600MG Q24HRS ON 04/11, [facility] UPDATED VIA [employer], PER ID PT WILL LIKELY NEED 8WKS IV DAPTO, ANTIC PT WILL REMAIN INPT OVER W/E PICC LINE WILL NEED TO BE PLACED ONCE BC'S ARE NEG, CM WILL CONT TO FOLLOW DC NEEDS.
--- NOTE | 2025-04-13 09:08 | P.PNIM_ITS ---
Subjective Subjective Date of Service: 04/13/25 Interval History: back pain Physical Exam 2 Vital Signs: Vital Signs: Last Vital Signs Temp 97.8 F 04/13/25 07:14 Pulse 84 04/13/25 07:14 Resp 18 04/13/25 07:14 BP 166/74 H 04/13/25 07:14 Pulse Ox 94 04/13/25 07:14 O2 Del Method Room Air 04/13/25 07:14 BMI result Body Mass Index 40.5 Const: General: cooperative, comfortable, no acute distress, alert and awake Nutritional Appearance: obese Orientation/consciousness: patient oriented x3 HEENT: Head: Yes normocephalic and Yes atraumatic Neck: Neck: Yes trachea midline, Yes supple and Yes no JVD Resp: Effort & Inspection: normal respiratory effort Auscultation: clear to auscultation bilaterally Cardio: Jugular venous distension: no JVD Rate: regular rate Rhythm: r egular rhythm Heart sounds: S1 normal heart sound present, S2 normal heart sound present, no click, no gallops and no murmurs GI: Auscultation: normal bowel sounds Skin: General skin exam: no rashes or lesions noted Neuro: General: patient oriented x3 and no focal motor deficits Extrem: General: Yes no clubbing, cyanosis or edema Objective Data Active Medications Acetaminophen (Acetaminophen 325 Mg Tablet) 975 mg PO Q6H [facility] Last Admin: 04/13/25 04:10 Dose: Not Given Documented By: MELISSA Non-Admin Reason: Patient Asleep Acetaminophen/Butalbital/Caffeine (Butalb/Acetamin/Caff 50/325/40 Tablet) 1 tab PO Q4H PRN PRN Reason: Headache Last Admin: 04/09/25 21:15 Dose: 1 tab Documented By: BOGDAN Allopurinol (Allopurinol 100 Mg Tablet) 100 mg PO DAILY [facility] Last Admin: 04/12/25 09:26 Dose: 100 mg Documented By: CORIN Baclofen (Baclofen 10 Mg Tablet) 10 mg PO DAILY [facility] Last Admin: 04/12/25 09:27 Dose: 10 mg Documented By: CORIN Calcium Carbonate (Calcium Carbonate 750 Mg Tab.Chew) 750 mg PO Q4H PRN PRN Reason: Heartburn Cyanocobalamin (Cyanocobalamin (Vitamin B-12) 1,000 Mcg Tablet) 1,000 mcg PO DAILY [facility] Last Admin: 04/12/25 09:00 Dose: 1,000 mcg Documented By: CORIN Diclofenac Sodium (Diclofenac Sodium Delayed Rel 75 Mg Tablet.) 75 mg PO BID [facility] Last Admin: 04/12/25 20:12 Dose: 75 mg Documented By: MELISSA Enoxaparin Sodium (Enoxaparin Sodium 40 Mg/0.4 Ml Syringe) 40 mg SUBCUT Q24H [facility] On Hold: 04/09/25 07:27 Last Admin: 04/08/25 20:56 Dose: 40 mg Documented By: REYNA Hydromorphone HCl (Hydromorphone Hcl 2 Mg Tablet) 4 mg PO Q6H PRN PRN Reason: pain Last Admin: 04/13/25 05:52 Dose: 4 mg Documented By: MELISSA Daptomycin 600 mg/ Sodium (Chloride) 62 mls @ 93.116 mls/hr IV Q24H [facility] Last Infusion: 04/12/25 22:06 Dose: Infused Documented By: MELISSA Losartan Potassium (Losartan Potassium 50 Mg Tablet) 50 mg PO DAILY [facility]; Protocol Magnesium Hydroxide (Milk Of Magnesia 30 Ml Oral.Susp) 30 ml PO DAILY PRN PRN Reason: Constipation Magnesium Oxide (Magnesium Oxide 400 Mg Tablet) 200 mg PO DAILY [facility] Last Admin: 04/12/25 09:27 Dose: 200 mg Documented By: CORIN Melatonin (Melatonin 3 Mg Tablet) 6 mg PO BEDTIME PRN PRN Reason: Insomnia Montelukast Sodium (Montelukast Sodium 10 Mg Tablet) 10 mg PO DAILY [facility] Last Admin: 04/12/25 09:26 Dose: 10 mg Documented By: CORIN Multivitamins/Vitamin C (Multivitamin Tablet) 1 tab PO DAILY [facility] Last Admin: 04/12/25 09:27 Dose: 1 tab Documented By: CORIN Omeprazole (Omeprazole 20 Mg Capsule.) 20 mg PO DAILY@0630 [facility] Last Admin: 04/13/25 05:52 Dose: 20 mg Documented By: MELISSA Ondansetron HCl (Ondansetron Hcl 4 Mg/2 Ml Vial) 4 mg IVPUSH Q8H PRN PRN Reason: Nausea and Vomiting Sodium Chloride (0.9 % Sodium Chloride Flush 3 Ml Syringe) 3 ml IVFLUSH QSHIFT [facility] Last Admin: 04/13/25 01:23 Dose: Not Given Documented By: MELISSA Non-Admin Reason: Previously Administered Tizanidine HCl (Tizanidine Hcl 4 Mg Tablet) 2 mg PO Q8H PRN PRN Reason: muscle spasticity Last Admin: 04/12/25 20:15 Dose: 2 mg Documented By: MELISSA Trazodone HCl (Trazodone Hcl 100 Mg Tablet) 400 mg PO BEDTIME [facility] Last Admin: 04/12/25 20:12 Dose: 400 mg Documented By: MELISSA Labs 04/12/25 05:53 04/13/25 06:12 Labs: Laboratory Results - last 24 hr 04/13/25 06:12 Hold Purple Top SEE NOTE Estim Creat Clear Calc 127.5 Estimated GFR > 60 Microbiology Microbiology Results: Microbiology 04/12/25 08:15 Blood Culture - Preliminary Blood - Venous Prelim: GPC Gram Stain only 04/12/25 08:15 Blood Culture - Preliminary Blood - Venous Gram positive cocci 04/11/25 09:35 Blood Culture - Preliminary Blood - Venous Prelim: GPC Gram Stain only 04/11/25 09:35 Blood Culture - Preliminary Blood - Venous Gram positive cocci Assessment and Plan (1) Sepsis: Status: Acute Plan 54F PMH htn, hld, copd, getd, gout, lumbar canal stenosis s/p right L3-4 L4-5 laminotomy with partial facetectomy and l5 formainotomy on 03/14/25 now complicated by mrsa bacteremia microabsecss, diskitis, myositis sepsis due to mrsa bacteremia, diskitis, myositis, microabscesses ID appreciated, changed to dapto (hold statin, monitor cpk), TTE poor study, cardio following for possible LIONEL, likely 8 weeks from negative culture iv abx at home, still positive from 04/12/25, repeating tomorrow, 04/14/25 neurosurgery following HLD hold statin while on dapto Hypertension losartan hypokalemia replace and monitor COPD Stable Gout Allopurinol Morbid obesity Weight loss recommended DVT prophylaxis Lovenox Full Code reason for continued hospitalization: bacteremia Quality Stroke Does the patient have a stroke diagnosis?: No VTE Prior VTE?: No VTE Risk Level:: Medical - moderate - high VTE Device Contraindication: Treatment Not Indicated VTE Drug Contraindication: N/A - Med Ordered
--- NOTE | 2025-04-13 09:29 | PM.PNCARD ---
Subjective Subjective Date of Service: 04/13/25 Principal diagnosis: Bacteremia Interval history: Repeat cultures again this morning a positive for Gram-positive cocci. Patient has no fever or chills. No cardiac symptoms to report. Review of Systems Constitutional: Reports weakness Eyes: Reports no additional eye complaints Cardiovascular: Reports no additional cardiovascular complaints Gastrointestinal: Reports no additional gastrointestinal complaints Skin/Breast: Reports system reviewed and no additional complaints, except as docu Reports weakness Psychiatric: Reports no additional psychiatric complaints Hematologic/Lymphatic: Reports no additional hematologic/lymphatic complaints Allergic/Immunologic: Reports no additional allergic/immunologic complaints Physical Exam Vital Signs: Last Vital Signs Temp 97.8 F 04/13/25 07:14 Pulse 84 04/13/25 07:14 Resp 18 04/13/25 07:14 BP 166/74 H 04/13/25 07:14 Pulse Ox 94 04/13/25 07:14 O2 Del Method Room Air 04/13/25 07:14 BMI result Body Mass Index 40.5 Const General: cooperative, comfortable, no acute distress, alert and awake Nutritional Appearance: obese Orientation/consciousness: patient oriented x3 HEENT Head: Yes normocephalic and Yes atraumatic Neck Neck: Yes trachea midline, Yes supple and Yes no JVD Resp Effort & Inspection: normal respiratory effort Auscultation: clear to auscultation bilaterally Cardio Jugular venous distension: no JVD Rate: regular rate Rhythm: regular rhythm Heart sounds: S1 normal heart sound present, S2 normal heart sound present, no click, no gallops and no murmurs GI Auscultation: normal bowel sounds Skin General skin exam: no rashes or lesions noted Neuro General: patient oriented x3 and no focal motor deficits Extrem General: Yes no clubbing, cyanosis or edema Objective Labs and Meds 04/12/25 05:53 04/13/25 06:12 Lab results: Laboratory Results - last 24 hr 04/13/25 06:12 Hold Purple Top SEE NOTE Creatinine 0.58 Estim Creat Clear Calc 127.5 Estimated GFR > 60 Progress Note: A&P Assessment and plan (1) Sepsis: Status: Acute Assessment and Plan: Sepsis with persistent bacteremia MRSA in this middle-aged woman with no other overt signs of fever or chills or endocarditis although I think it is appropriate to pursue LIONEL to rule out any intracardiac vegetations that may change therapeutic plan. This was discussed with her. We discussed in details about the LIONEL and the associated risks and benefits. She understands agrees. Will schedule her for tomorrow. Please keep her NPO. Time Spent With Patient Time: Total time managing care of this patient today ____ minutes. Progress Note: Quality Stroke Does the patient have a stroke diagnosis?: No Procedures Date of Service Date of Service: 04/13/25
[2025-04-13 11:12] VITALS: BP 165/82; PULSE 86; RESP 18; TEMP 36.7; O2SAT 96
[2025-04-13] MEDS: Diclofenac Sodium Delayed Rel 75 MG TABLET.DR PO ×2 (11:19→20:59)
[2025-04-13] MEDS: 0.9 % Sodium Chloride Flush 3 ML SYRINGE IVFLUSH ×3 (11:20→21:05)
--- NOTE | 2025-04-13 13:50 | HO.NEURO.PN ---
Neurosurgery Operative Note Date of Service: 04/13/25 Narrative: HPI: Vickie is a 54-year-old female who underwent right L3-4, L4-5 Laminotomy, Partial facetectomy and L5 foraminotomy with incidental durotomy on 03/14/25. She is admitted to 4th floor [facility] for continued inpatient management of wound infection with sepsis. Blood cultures and wound culture grew MRSA. Repeat blood cultures have consistently continued to grow gram (+) cocci / MRSA. She was evaluated again by cardiology today who recommend LIONEL to be completed tomorrow to rule out IE. Wound care also was able to see her yesterday and provide recommendations re: wound care. Today, the patient is seen sitting upright in her bedside chair on . She reports that she continues to have some low back pain which worsens when lying down. She does feel like she continues to physically feel better each day. She has been up out of bed and ambulating around the unit with nursing staff. Physical Exam: The patient is A&OX4, and in no acute distress. She is conversant, and sits upright in bedside chair without issue. Strength of the bilateral lower extremities remains full. Her posterior wound dressing was removed, for wound inspection. Packing remains in place with wound remaining open about 1/2-1cm. There is very minimal drainage noted on gauze. No erythema surrounding the incision site. Plan: 54-year-old female who underwent right L3-4, L4-5 Laminotomy, Partial facetectomy and L5 foraminotomy with incidental durotomy on 03/14/25. She now has a wound infection, with wound cultures and blood cultures growing MRSA. We are currently recommending the following: - Per wound care: Gently cleanse wound with NS moist gauze, Pat dry.?Apply skin prep barrier to alvaro-wound, lightly pack with Durafiber AG, (Spiral cut the sheet into one piece) be sure to leave a wick for easy removal.? Cover with dry gauze and ABD Pad dressing.? Change Daily while inpatient. Off Load Pressure with Q2 hr turns and use of pillows when in bed. -Ambulation with assistance at least 3 x daily up and down the green or around the unit with nursing staff -Encourage incentive spirometry q1h -Physical therapy eval & treat -DVT ppx with pneumatic compression boots -Continued IV Daptomycin -Repeat blood cultures until aseptic -PICC line when blood cultures are aseptic -Will continue to appreciate wound care / cardiology / hospitalist recommendations. This was discussed with the attending neurosurgeon Dr. Bull who understands and agrees to this plan. Sumeet Bull MD,PhD [facility]
--- NOTE | 2025-04-13 14:21 | HO.SKINPHOTO ---
Location: Category: Stage: Length: Width: Depth: cm Location: Category: Stage: Length: Width: Depth: cm Location: Category: Stage: Length: Width: Depth: cm Location: Category: Stage: Length: Width: Depth: cm Location: Category: Stage: Length: Width: Depth: cm Location: Category: Stage: Length: Width: Depth: cm
[2025-04-13 15:31] VITALS: BP 169/79; PULSE 79; RESP 20; TEMP 36.4; O2SAT 94
[2025-04-13 19:14] VITALS: BP 140/65; PULSE 86; RESP 18; TEMP 36.6; O2SAT 97
[2025-04-13] MEDS: DAPTOmycin 600 MG in 0.9 % Sodium Chloride 50 ML 93.17 MG IV (21:01)
[2025-04-13 23:19] VITALS: BP 150/77; PULSE 84; RESP 18; TEMP 36.6; O2SAT 95
[2025-04-14] VITALS (8 sets, daily range): BP systolic 100–178; BP diastolic 65–90; PULSE 86–98; RESP 15–20; TEMP 36.6–37; O2SAT 92–96
[2025-04-14 06:59] LABS: Hematocrit 27.1 % (37.0-47.0); Hemoglobin 9.2 g/dl (12.0-16.0); Mean Corpuscular HGB Conc 33.9 g/dl (31.0-35.0); Mean Corpuscular Hemoglobin 30.5 pg (27.0-33.0); Mean Corpuscular Volume 89.7 fL (80.0-98.0); NRBC Abs Auto 0.000 X10*3/uL (0.0-0.012); NRBC Pct Auto 0.0 /100WBC (0.0-0.2); Platelet Count 211 X10*3/uL (160-400); Red Blood Count 3.02 X10*6/uL (4.20-5.50); White Blood Count 13.0 X10*3/uL (4.8-10.8)
[2025-04-14 07:09] LABS: Anion Gap 13 (12-20); Blood Urea Nitrogen 10 mg/dL (9-16); Calcium 9.5 mg/dL (8.4-10.2); Carbon Dioxide 28 mmol/L (22-29); Chloride 101 mmol/L (96-108); Creatinine Clr Calc Pharmacy 127.5; Estimated Glomerular Filt Rate > 60; Potassium 3.2 mmol/L (3.3-5.1); Sodium 139 mmol/L (135-145)
[2025-04-14] MEDS: 0.9 % Sodium Chloride Flush 3 ML SYRINGE IVFLUSH ×3 (09:27→21:20)
[2025-04-14] MEDS: Diclofenac Sodium Delayed Rel 75 MG TABLET.DR PO ×2 (09:28→20:45)
--- NOTE | 2025-04-14 09:52 | P.PNIM_ITS ---
Subjective Subjective Date of Service: 04/14/25 Interval History: back pain Physical Exam 2 Vital Signs: Vital Signs: Last Vital Signs Temp 98.6 F 04/14/25 07:59 Pulse 87 04/14/25 07:59 Resp 18 04/14/25 07:59 BP 163/90 H 04/14/25 07:59 Pulse Ox 96 04/14/25 07:59 O2 Del Method Room Air 04/14/25 07:59 BMI result Body Mass Index 40.5 Const: General: cooperative, comfortable, no acute distress, alert and awake Nutritional Appearance: obese Orientation/consciousness: patient oriented x3 HEENT: Head: Yes normocephalic and Yes atraumatic Neck: Neck: Yes trachea midline, Yes supple and Yes no JVD Resp: Effort & Inspection: normal respiratory effort Auscultation: clear to auscultation bilaterally Cardio: Jugular venous distension: no JVD Rate: regular rate Rhythm: r egular rhythm Heart sounds: S1 normal heart sound present, S2 normal heart sound present, no click, no gallops and no murmurs GI: Auscultation: normal bowel sounds Skin: General skin exam: no rashes or lesions noted Neuro: General: patient oriented x3 and no focal motor deficits Extrem: General: Yes no clubbing, cyanosis or edema Objective Data Active Medications Acetaminophen (Acetaminophen 325 Mg Tablet) 975 mg PO Q6H [facility] Last Admin: 04/14/25 09:26 Dose: 975 mg Documented By: ANA Acetaminophen/Butalbital/Caffeine (Butalb/Acetamin/Caff 50/325/40 Tablet) 1 tab PO Q4H PRN PRN Reason: Headache Last Admin: 04/09/25 21:15 Dose: 1 tab Documented By: BOGDAN Allopurinol (Allopurinol 100 Mg Tablet) 100 mg PO DAILY [facility] Last Admin: 04/14/25 09:26 Dose: 100 mg Documented By: ANA Baclofen (Baclofen 10 Mg Tablet) 10 mg PO DAILY [facility] Last Admin: 04/14/25 09:26 Dose: 10 mg Documented By: ANA Calcium Carbonate (Calcium Carbonate 750 Mg Tab.Chew) 750 mg PO Q4H PRN PRN Reason: Heartburn Cyanocobalamin (Cyanocobalamin (Vitamin B-12) 1,000 Mcg Tablet) 1,000 mcg PO DAILY [facility] Last Admin: 04/14/25 09:28 Dose: 1,000 mcg Documented By: ANA Diclofenac Sodium (Diclofenac Sodium Delayed Rel 75 Mg Tablet.) 75 mg PO BID [facility] Last Admin: 04/14/25 09:28 Dose: 75 mg Documented By: ANA Enoxaparin Sodium (Enoxaparin Sodium 40 Mg/0.4 Ml Syringe) 40 mg SUBCUT Q24H [facility] On Hold: 04/09/25 07:27 Last Admin: 04/08/25 20:56 Dose: 40 mg Documented By: REYNA Daptomycin 600 mg/ Sodium (Chloride) 62 mls @ 93.116 mls/hr IV Q24H [facility] Last Infusion: 04/13/25 21:58 Dose: Infused Documented By: BRANDON Losartan Potassium (Losartan Potassium 50 Mg Tablet) 50 mg PO DAILY [facility]; Protocol Last Admin: 04/14/25 09:26 Dose: 50 mg Documented By: ANA Magnesium Hydroxide (Milk Of Magnesia 30 Ml Oral.Susp) 30 ml PO DAILY PRN PRN Reason: Constipation Magnesium Oxide (Magnesium Oxide 400 Mg Tablet) 200 mg PO DAILY [facility] Last Admin: 04/14/25 09:27 Dose: 200 mg Documented By: ANA Melatonin (Melatonin 3 Mg Tablet) 6 mg PO BEDTIME PRN PRN Reason: Insomnia Montelukast Sodium (Montelukast Sodium 10 Mg Tablet) 10 mg PO DAILY [facility] Last Admin: 04/14/25 09:28 Dose: 10 mg Documented By: ANA Multivitamins/Vitamin C (Multivitamin Tablet) 1 tab PO DAILY [facility] Last Admin: 04/14/25 09:26 Dose: 1 tab Documented By: ANA Omeprazole (Omeprazole 20 Mg Capsule.) 20 mg PO DAILY@0630 [facility] Last Admin: 04/14/25 04:09 Dose: 20 mg Documented By: BRANDON Ondansetron HCl (Ondansetron Hcl 4 Mg/2 Ml Vial) 4 mg IVPUSH Q8H PRN PRN Reason: Nausea and Vomiting Sodium Chloride (0.9 % Sodium Chloride Flush 3 Ml Syringe) 3 ml IVFLUSH QSHIFT [facility] Last Admin: 04/14/25 09:27 Dose: 3 ml Documented By: ANA Tizanidine HCl (Tizanidine Hcl 4 Mg Tablet) 2 mg PO Q8H PRN PRN Reason: muscle spasticity Last Admin: 04/13/25 23:28 Dose: 2 mg Documented By: BRANDON Trazodone HCl (Trazodone Hcl 100 Mg Tablet) 400 mg PO BEDTIME [facility] Last Admin: 04/13/25 20:59 Dose: 400 mg Documented By: BRANDON Labs 04/14/25 05:25 04/14/25 05:25 Labs: Laboratory Results - last 24 hr 04/14/25 05:25 MCV 89.7 MCH 30.5 MCHC 33.9 RDW 14.5 Plt Count 211 D MPV 10.0 Absolute Nucleated RBC 0.000 Nucleated RBC % (auto) 0.0 Anion Gap 13 Estim Creat Clear Calc 127.5 Estimated GFR > 60 Random Glucose 123 H Calcium 9.5 Total Creatine Kinase 33 Microbiology Microbiology Results: Microbiology 04/12/25 08:15 Blood Culture - Final Blood - Venous Methicillin Res Staph Aureus 04/12/25 08:15 Blood Culture - Final Blood - Venous Methicillin Res Staph Aureus 04/11/25 09:35 Blood Culture - Final Blood - Venous Methicillin Res Staph Aureus 04/11/25 09:35 Blood Culture - Final Blood - Venous Methicillin Res Staph Aureus Assessment and Plan (1) Sepsis: Status: Acute Plan 54F PMH htn, hld, copd, getd, gout, lumbar canal stenosis s/p right L3-4 L4-5 laminotomy with partial facetectomy and l5 formainotomy on 03/14/25 now complicated by mrsa bacteremia microabsecss, diskitis, myositis sepsis due to mrsa bacteremia, diskitis, myositis, microabscesses ID appreciated, changed to dapto (hold statin, monitor cpk), TTE poor study, cardio following for possible LIONEL, likely 8 weeks from negative culture iv abx at home, still positive from 04/12/25, repeating 04/14/25 neurosurgery following HLD hold statin while on dapto Hypertension losartan hypokalemia replace and monitor COPD Stable Gout Allopurinol Morbid obesity Weight loss recommended DVT prophylaxis Lovenox Full Code reason for continued hospitalization: bacteremia Quality Stroke Does the patient have a stroke diagnosis?: No VTE Prior VTE?: No VTE Risk Level:: Medical - moderate - high VTE Device Contraindication: Treatment Not Indicated VTE Drug Contraindication: N/A - Med Ordered
--- NOTE | 2025-04-14 10:14 | CA_ITS ---
Transesophageal Echocardiogram Patient (Last, First, Middle): Carey, Alaina Johnston Gender: Female Date of : 1970 Age: 54 Procedure Date: 04/14/2025 Procedure Type: Transesophageal Echocardiogram Location: [facility] Height: 160.02 cm Weight: 103.42 kg BSA: 2.04 m2 Heart Rate: bpm BP: 136 / 77 mmHg Cutting Inspector: HILARY Referring MD: Trung hTompson MD Symptoms: r/o endocaditis Conclusion: ??? 1. No clear significant vegetation seen of the cardiac valves 2. Normal LV systolic function 3. No intracardiac masses or thrombi 4. No intracardiac shunting 5. Trivial aortic regurgitation 6. Mild atherosclerotic changes noted in the aorta 7. No gross pericardial effusion Findings Procedure Information Consent was obtained prior to the procedure. Pre LIONEL oral cavity was checked and revealed mild overcrowding. The adult 3D probe was passed with no difficulty. This was a technically good study. Left Ventricle Normal left ventricular size, thickness, and systolic function. The visually estimated ejection fraction is between 60-65%. Spectral Doppler is indicative of an impaired relaxation filling pattern. Right Ventricle Normal right ventricular cavity size and systolic function. Atria The left atrium is normal in size. There is lipomatous hypertrophy of the interatrial septum. There is no evidence of a patent foramen ovale. There is no evidence of an atrial septal defect. There is no evidence of thrombus or mass in the left atrium. the left atrial appendage was identified him in multiple views, with no clots or masses. The left upper, right upper and right lower pulmonary vein drained normally into the left atrium. There is no evidence of thrombus or mass in the right atrium. There was lot of shadowing from significantly thickened under today intra-atrial septum due to lipomatous hypertrophy. There are no obvious masses noted. Eustachian valve was noted. IVC and SVC drain normally into the right Atrium. Aortic Valve Normal aortic valve structure and function. There is no aortic valve stenosis. There is no evidence of a mass on the aortic valve. There is trace (trivial) aortic valve regurgitation. Mitral Valve Normal mitral valve structure and function. There is trace mitral valve regurgitation. There is no mitral valve stenosis. There is no mass noted on the mitral valve. Pulmonic Valve The pulmonic valve is normal. There is no mass noted on the pulmonic valve. There is trace pulmonic valve regurgitation. Tricuspid Valve Likely normal tricuspid valve structure and function. There is no evidence of a mass on the tricuspid valve. difficult to visualize due to shadowing from there lipomatous hypertrophy of the intra-atrial septum although on multiple different views there were no clear large mobile vegetations noted. Great Vessels All visible segments of the aorta are normal in size. Small plaque is seen in the ascending aorta and descending thoracic aorta. The visualized portions of the pulmonary artery and branches are normal. Venous The inferior vena cava is normal in size. Pericardium/Pleural There is no evidence of pericardial effusion. Updated by Trung Thompson on 11:48 AM with Status of Final Trung Thompson MD electronically signed on 04/14/2025 11:48:00 AM with status of Final
--- NOTE | 2025-04-14 10:15 | MHC.SHP ---
Pre-Procedural Eval Section A - 24 Hr Update-Section A only Date of Service: 04/14/25 The patient is an INPATIENT: Yes Changes since office visit: Yes Patient answered all questions; No Cold of Flu in the past 2 weeks, No New Medical Problems and No Changes in Medication The patient has been examined within 24 hours of the surgical procedure. The History & Physical has been completed within 30 days and I have reviewed it.: Yes Section B - Complete if H&P > 30 days Chief Complaint: Spinal Infection Allergies: Allergies Allergy/AdvReac Type Severity Reaction Status Date / Time gabapentin Allergy Intermediate Nausea and Verified 04/08/25 13:14 Vomiting morphine (Morphine) Allergy Intermediate VOMITING Verified 04/08/25 13:14 oxycodone (Percocet) Allergy Intermediate Vomiting Verified 04/08/25 13:14 methocarbamol AdvReac Intermediate GI upset Verified 04/08/25 13:14 Plan I have reviewed the history and physical and performed a pertinent physical examination on my patient. No changes have occurred unless specified. Time Spent With Patient Time: Total time managing care of this patient today ____ minutes.
--- NOTE | 2025-04-14 10:35 | P.CONAN_ITS ---
HPI - Anesthesia Eval Consult details Narrative: 54 yo F presenting for LIONEL PMF Active Problems Active Problems: All Active Problems Sepsis (Acute) Headache (Acute) Lumbar radiculopathy, chronic (Acute) Right leg paresthesias (Acute) Bilateral leg pain (Acute) Buzzing in both ears (Acute) Recurrent right knee instability (Acute) MDD (major depressive disorder) (Acute) Lumbar radicular pain (Acute) Ulnar neuropathy (Acute) Claudication (Acute) Lumbar spondylosis (Acute) Right upper extremity numbness (Acute) Diverticulosis of colon (Acute) Tubular adenoma (Acute) Lumbar canal stenosis (Acute) Learning disability (Acute) Chest pain (Acute) BMI 38.0-38.9,adult (Acute) Lumbar pain (Acute) Carbuncle and furuncle of trunk (Acute) Neuropathy of left lower extremity (Acute) Dizziness (Acute) Family history of MS (multiple sclerosis) (Acute) Knee pain, right (Acute) Chronic pain of right wrist (Acute) High ankle sprain of right lower extremity (Acute) Myalgia (Acute) Lateral epicondylitis (Acute) Insomnia (Acute) GERD (gastroesophageal reflux disease) (Acute) Migraines (Acute) Tobacco dependence (Acute) Lumbar spine pain (Acute) Colon cancer screening (Acute) Smoker (Acute) Annual physical exam (Acute) Migraine (Acute) Type 2 diabetes mellitus without complications (Acute) Allergic rhinitis (Acute) Anxiety (Acute) Hyperuricemia (Acute) Asthma (Acute) Obese (Acute) Essential hypertension (Acute) Hyperlipidemia LDL goal <100 (Acute) Hyperlipidemia (Acute) Past Medical History Medical History Anxiety MDD (major depressive disorder) Gout GERD (gastroesophageal reflux disease) Ambulates with cane Smoker Hyperuricemia Asthma Obese Osteoarthritis Trigger finger Carpal tunnel syndrome Hyperlipidemia LDL goal <100 Essential hypertension Hyperlipidemia Cellulitis, umbilical Family History Family History Father Diabetes Hypertension Stroke Heart attack, Onset Age: 50 Mother Multiple sclerosis Brother In good health Son In good health Son In good health Other Patient denies medical problems Family history of problems with anesthesia: No Surgical History Surgical History History of esophagogastroduodenoscopy (EGD) Hx of colonoscopy History of laparoscopic appendectomy History of foot surgery History of carpal tunnel release H/O: hysterectomy History of Problems with Anesthesia: No Social History Social History Household Members: Spouse and Children Housing: Apartment Are you a primary home visit field care manager to a significant other at home: No Do you presently have visiting nurse or other home services: No Alcohol intake: current Alcohol intake frequency: holidays/special occasions only Alcohol type: beer Patient Tobacco Use Status: Current everyday Tobacco user Tobacco use type: Cigarette Cigarette Packs Per Day: 0.5 Cigarettes Per Day: 10.0 Years Smoked: 46 e-Cigarette/Vaping Use: Never Used Second Hand Smoke Exposure: Yes service: No Current occupational status: disabled Cognitive needs: No Hearing needs: No Vision needs: Yes (glasses) Meds Allergies Allergy/AdvReac Type Severity Reaction Status Date / Time gabapentin Allergy Intermediate Nausea and Verified 04/08/25 13:14 Vomiting morphine (Morphine) Allergy Intermediate VOMITING Verified 04/08/25 13:14 oxycodone (Percocet) Allergy Intermediate Vomiting Verified 04/08/25 13:14 methocarbamol AdvReac Intermediate GI upset Verified 04/08/25 13:14 Active Medications: Current Medications Acetaminophen (Acetaminophen 325 Mg Tablet) 975 mg PO Q6H [facility] Last Admin: 04/14/25 09:26 Dose: 975 mg Acetaminophen/Butalbital/Caffeine (Butalb/Acetamin/Caff 50/325/40 Tablet) 1 tab PO Q4H PRN PRN Reason: Headache Last Admin: 04/09/25 21:15 Dose: 1 tab Allopurinol (Allopurinol 100 Mg Tablet) 100 mg PO DAILY [facility] Last Admin: 04/14/25 09:26 Dose: 100 mg Baclofen (Baclofen 10 Mg Tablet) 10 mg PO DAILY [facility] Last Admin: 04/14/25 09:26 Dose: 10 mg Calcium Carbonate (Calcium Carbonate 750 Mg Tab.Chew) 750 mg PO Q4H PRN PRN Reason: Heartburn Cyanocobalamin (Cyanocobalamin (Vitamin B-12) 1,000 Mcg Tablet) 1,000 mcg PO DAILY [facility] Last Admin: 04/14/25 09:28 Dose: 1,000 mcg Diclofenac Sodium (Diclofenac Sodium Delayed Rel 75 Mg Tablet.Dr) 75 mg PO BID [facility] Last Admin: 04/14/25 09:28 Dose: 75 mg Enoxaparin Sodium (Enoxaparin Sodium 40 Mg/0.4 Ml Syringe) 40 mg SUBCUT Q24H [facility] On Hold: 04/09/25 07:27 Last Admin: 04/08/25 20:56 Dose: 40 mg Daptomycin 600 mg/ Sodium (Chloride) 62 mls @ 93.116 mls/hr IV Q24H [facility] Last Infusion: 04/13/25 21:58 Dose: Infused Losartan Potassium (Losartan Potassium 50 Mg Tablet) 50 mg PO DAILY [facility]; Protocol Last Admin: 04/14/25 09:26 Dose: 50 mg Magnesium Hydroxide (Milk Of Magnesia 30 Ml Oral.Susp) 30 ml PO DAILY PRN PRN Reason: Constipation Magnesium Oxide (Magnesium Oxide 400 Mg Tablet) 200 mg PO DAILY [facility] Last Admin: 04/14/25 09:27 Dose: 200 mg Melatonin (Melatonin 3 Mg Tablet) 6 mg PO BEDTIME PRN PRN Reason: Insomnia Montelukast Sodium (Montelukast Sodium 10 Mg Tablet) 10 mg PO DAILY [facility] Last Admin: 04/14/25 09:28 Dose: 10 mg Multivitamins/Vitamin C (Multivitamin Tablet) 1 tab PO DAILY [facility] Last Admin: 04/14/25 09:26 Dose: 1 tab Omeprazole (Omeprazole 20 Mg Capsule.) 20 mg PO DAILY@0630 [facility] Last Admin: 04/14/25 04:09 Dose: 20 mg Ondansetron HCl (Ondansetron Hcl 4 Mg/2 Ml Vial) 4 mg IVPUSH Q8H PRN PRN Reason: Nausea and Vomiting Sodium Chloride (0.9 % Sodium Chloride Flush 3 Ml Syringe) 3 ml IVFLUSH QSHIFT [facility] Last Admin: 04/14/25 09:27 Dose: 3 ml Tizanidine HCl (Tizanidine Hcl 4 Mg Tablet) 2 mg PO Q8H PRN PRN Reason: muscle spasticity Last Admin: 04/13/25 23:28 Dose: 2 mg Trazodone HCl (Trazodone Hcl 100 Mg Tablet) 400 mg PO BEDTIME [facility] Last Admin: 04/13/25 20:59 Dose: 400 mg Home Medications ?Medication ?Instructions ?Recorded ?Confirmed ?Last Taken ?Type multivitamin 1 tab PO DAILY 07/31/2203/13 Unknown History omega-3 fatty acids 500 mg capsule 500 mg PO DAILY 04/08/25 03/06/25 History tizanidine 2 mg tablet 2 mg PO Q8H PRN muscle spast icity 03/01/25 04/08/25 Unknown History baclofen 10 mg tablet 10 mg PO DAILY 04/08/2503/13 Unknown History hydrocodone 5 mg-acetaminophen 325 1 - 2 tab PO Q6H [facility] N pain 04/08/25 04/08/25 Unknown History mg tablet hydromorphone 4 mg tablet 4 mg PO Q6H PRN pain 5 04/08/25 Unknown History Exam Exam Date and Time: 04/14/25 1035 Height,Weight and Vital Signs: Height 5 ft 3 in Weight 103.6 kg Last Vital Signs Temp 98.6 F 04/14/25 07:59 Pulse 87 04/14/25 07:59 Resp 18 04/14/25 07:59 BP 163/90 H 04/14/25 07:59 Pulse Ox 96 04/14/25 07:59 O2 Del Method Room Air 04/14/25 07:59 Pertinent Lab Results Pertinent Lab Results: Laboratory Tests 04/08/25 04/08/25 04/08/25 13:13 13:31 16:21 WBC 14.0 H RBC 3.29 L D Hgb 10.2 L D Hct 29.1 L D MCV 88.4 MCH 31.0 MCHC 35.1 H RDW 13.5 Plt Count 171 D MPV 9.0 L Immature Gran % (Auto) Cancelled Neut % (Auto) Cancelled Lymph % (Auto) Cancelled Day % (Auto) Cancelled Eos % (Auto) Cancelled Baso % (Auto) Cancelled Lymph # (Auto) Cancelled Day # (Auto) Cancelled Eos # (Auto) Cancelled Baso # (Auto) Cancelled Abs Immat Gran (auto) Cancelled Absolute Neuts (auto) Cancelled Absolute Nucleated RBC 0.000 Nucleated RBC % (auto) 0.0 Neutrophils % (Manual) 79 H Band Neutrophils % 16 H Lymphocytes % (Manual) 2 L Monocytes % (Manual) 2 Basophils % (Manual) 1 Abs Neuts (Manual) 13.3 H Lymphocytes # (Manual) 0.3 L Monocytes # (Manual) 0.3 Basophils # (Manual) 0.1 Platelet Estimate NORMAL Large Platelets PRESENT Plt Morphology Comment NORMAL RBC Morphology NORMAL ESR 102 H Hold Purple Top Sodium 131 L Potassium 3.4 Chloride 99 Carbon Dioxide 17 L Anion Gap 18 BUN 23 H Creatinine 1.09 Estim Creat Clear Calc 66.9 Estimated GFR 52 Random Glucose 203 H Estimat Average Glucose Hemoglobin A1c % Lactic Acid 4.2 H* Lactic Acid F/U @ 2Hr 1.5 Calcium 9.9 Total Bilirubin 0.9 Direct Bilirubin 0.6 H AST 74 H ALT 142 H Alkaline Phosphatase 187 H Total Creatine Kinase C-Reactive Protein 40.74 H Total Protein 6.7 Albumin 3.6 Vancomycin Trough Random Vancomycin 04/09/25 04/09/25 04/10/25 06:16 12:01 06:30 WBC 7.8 RBC 2.97 L Hgb 9.1 L Hct 26.9 L MCV 90.6 MCH 30.6 MCHC 33.8 RDW 13.7 Plt Count 141 L MPV 9.3 L Immature Gran % (Auto) Neut % (Auto) Lymph % (Auto) Day % (Auto) Eos % (Auto) Baso % (Auto) Lymph # (Auto) Day # (Auto) Eos # (Auto) Baso # (Auto) Abs Immat Gran (auto) Absolute Neuts (auto) Absolute Nucleated RBC 0.020 H Nucleated RBC % (auto) 0.3 H Neutrophils % (Manual) Band Neutrophils % Lymphocytes % (Manual) Monocytes % (Manual) Basophils % (Manual) Abs Neuts (Manual) Lymphocytes # (Manual) Monocytes # (Manual) Basophils # (Manual) Platelet Estimate Large Platelets Plt Morphology Comment RBC Morphology ESR Hold Purple Top Sodium 135 Potassium 3.4 Chloride 105 Carbon Dioxide 20 L Anion Gap 13 BUN 21 H Creatinine 0.93 0.83 Estim Creat Clear Calc 79.6 89.1 Estimated GFR > 60 > 60 Random Glucose 136 H Estimat Average Glucose 117 Hemoglobin A1c % 5.7 Lactic Acid Lactic Acid F/U @ 2Hr Calcium 9.2 D Total Bilirubin 0.7 Direct Bilirubin AST 43 H ALT 92 H Alkaline Phosphatase 132 H Total Creatine Kinase C-Reactive Protein Total Protein 5.5 L Albumin 2.8 L Vancomycin Trough Random Vancomycin 11.1 L 04/10/25 04/11/25 04/11/25 11:21 06:59 11:08 WBC 11.4 H RBC 3.03 L Hgb 9.4 L Hct 26.8 L MCV 88.4 MCH 31.0 MCHC 35.1 H RDW 14.2 Plt Count 118 L MPV 9.7 Immature Gran % (Auto) Neut % (Auto) Lymph % (Auto) Day % (Auto) Eos % (Auto) Baso % (Auto) Lymph # (Auto) Day # (Auto) Eos # (Auto) Baso # (Auto) Abs Immat Gran (auto) Absolute Neuts (auto) Absolute Nucleated RBC 0.000 Nucleated RBC % (auto) 0.0 Neutrophils % (Manual) Band Neutrophils % Lymphocytes % (Manual) Monocytes % (Manual) Basophils % (Manual) Abs Neuts (Manual) Lymphocytes # (Manual) Monocytes # (Manual) Basophils # (Manual) Platelet Estimate Large Platelets Plt Morphology Comment RBC Morphology ESR Hold Purple Top Sodium 142 Potassium 3.6 Chloride 108 Carbon Dioxide 25 Anion Gap 13 BUN 15 Creatinine 0.68 Estim Creat Clear Calc 108.8 Estimated GFR > 60 Random Glucose 115 Estimat Average Glucose Hemoglobin A1c % Lactic Acid Lactic Acid F/U @ 2Hr Calcium 9.5 Total Bilirubin 0.7 Direct Bilirubin AST 32 H ALT 51 H Alkaline Phosphatase 122 H Total Creatine Kinase C-Reactive Protein Total Protein 5.6 L Albumin 2.6 L Vancomycin Trough 14.7 Random Vancomycin 13.2 L 04/12/25 04/13/25 04/14/25 05:53 06:12 05:25 WBC 14.1 H 13.0 H RBC 3.20 L 3.02 L Hgb 9.8 L 9.2 L Hct 28.3 L 27.1 L MCV 88.4 89.7 MCH 30.6 30.5 MCHC 34.6 33.9 RDW 14.2 14.5 Plt Count 139 L 211 D MPV 9.8 10.0 Immature Gran % (Auto) Neut % (Auto) Lymph % (Auto) Day % (Auto) Eos % (Auto) Baso % (Auto) Lymph # (Auto) Day # (Auto) Eos # (Auto) Baso # (Auto) Abs Immat Gran (auto) Absolute Neuts (auto) Absolute Nucleated RBC 0.000 0.000 Nucleated RBC % (auto) 0.0 0.0 Neutrophils % (Manual) Band Neutrophils % Lymphocytes % (Manual) Monocytes % (Manual) Basophils % (Manual) Abs Neuts (Manual) Lymphocytes # (Manual) Monocytes # (Manual) Basophils # (Manual) Platelet Estimate Large Platelets Plt Morphology Comment RBC Morphology ESR Hold Purple Top SEE NOTE Sodium 139 139 Potassium 3.1 L 3.2 L Chloride 105 101 Carbon Dioxide 25 28 Anion Gap 12 13 BUN 11 10 Creatinine 0.61 0.58 0.58 Estim Creat Clear Calc 121.3 127.5 127.5 Estimated GFR > 60 > 60 > 60 Random Glucose 126 H 123 H Estimat Average Glucose Hemoglobin A1c % Lactic Acid Lactic Acid F/U @ 2Hr Calcium 9.7 9.5 Total Bilirubin Direct Bilirubin AST ALT Alkaline Phosphatase Total Creatine Kinase 33 C-Reactive Protein Total Protein Albumin Vancomycin Trough Random Vancomycin Airway Mallampati Class: I TM Dist: <=3cm Neck ROM: Limited Loose/Missing/Broken Teeth: Yes (edentulous top jaw, multiple missing teeth on bottom jaw) Heart: S1S2 Lungs: CTAB Assessment and Plan Assessment Anesthesia Assessment: Anesthesia Plan Discussed and Chart Reviewed Final Anesthetic Review Family History of Problems with Anesthesia: No History of Problems with Anesthesia: No NPO: Yes ASA Class: III Final Preanesthetic Review: No Changes in Pt Med Stat, Meds/Allgs Chart Reviewed, Consent Obtained/Reviewed and Anes Risks/Benef Reviewed Patient Risk: Intermediate Procedure Risk: Low Anesthetic Plan Anesthetic Plan: MAC: and Agree w/ Assess. and Plan Disposition: Standard PACU
--- NOTE | 2025-04-14 11:23 | PM.PNCARD ---
Subjective Subjective Date of Service: 04/14/25 Principal diagnosis: Bacteremia Interval history: Underwent LIONEL today. Avoidance of valvular vegetation suggestive of endocarditis. Being followed by hospitalist team. Review of Systems Review of Systems Negative except for that which is stated in the HPI Constitutional: Reports weakness Eyes: Reports no additional eye complaints Cardiovascular: Reports no additional cardiovascular complaints Gastrointestinal: Reports no additional gastrointestinal complaints Skin/Breast: Reports system reviewed and no additional complaints, except as docu Reports weakness Psychiatric: Reports no additional psychiatric complaints Hematologic/Lymphatic: Reports no additional hematologic/lymphatic complaints Allergic/Immunologic: Reports no additional allergic/immunologic complaints Physical Exam Vital Signs: Last Vital Signs Temp 98.4 F 04/14/25 11:09 Pulse 98 04/14/25 11:09 Resp 20 04/14/25 11:09 BP 100/65 04/14/25 11:09 Pulse Ox 94 04/14/25 11:09 O2 Del Method Nasal Cannula with Capnography 04/14/25 11:09 O2 Flow Rate 3 04/14/25 11:09 BMI result Body Mass Index 40.5 Const General: cooperative, comfortable, no acute distress, alert and awake Nutritional Appearance: obese Orientation/consciousness: patient oriented x3 HEENT Head: Yes normocephalic and Yes atraumatic Neck Neck: Yes trachea midline, Yes supple and Yes no JVD Resp Effort & Inspection: normal respiratory effort Auscultation: clear to auscultation bilaterally Cardio Jugular venous distension: no JVD Rate: regular rate Rhythm: regular rhythm Heart sounds: S1 normal heart sound present, S2 normal heart sound present, no click, no gallops and no murmurs GI Auscultation: normal bowel sounds Skin General skin exam: no rashes or lesions noted Neuro General: patient oriented x3 and no focal motor deficits Extrem General: Yes no clubbing, cyanosis or edema Objective Labs and Meds 04/14/25 05:25 04/14/25 05:25 Lab results: Laboratory Results - last 24 hr 04/14/25 05:25 WBC 13.0 H RBC 3.02 L Hgb 9.2 L Hct 27.1 L MCV 89.7 MCH 30.5 MCHC 33.9 RDW 14.5 Plt Count 211 D MPV 10.0 Absolute Nucleated RBC 0.000 Nucleated RBC % (auto) 0.0 Sodium 139 Potassium 3.2 L Chloride 101 Carbon Dioxide 28 Anion Gap 13 BUN 10 Creatinine 0.58 Estim Creat Clear Calc 127.5 Estimated GFR > 60 Random Glucose 123 H Calcium 9.5 Total Creatine Kinase 33 Progress Note: A&P Assessment and plan (1) Sepsis: Status: Acute Assessment and Plan: Sepsis with persistent bacteremia without evidence of valvular vegetations on transesophageal echocardiogram. This appears to be most likely related to the wound infection. No further cardiac workup is indicated at this point time. Continue supportive care. Continue treatment for blood pressure. For now will sign of the case. Thank you for allowing me to partake in her care Time Spent With Patient Time: Total time managing care of this patient today ____ minutes. Progress Note: Quality Stroke Does the patient have a stroke diagnosis?: No Procedures Date of Service Date of Service: 04/14/25
[2025-04-14] MEDS: Potassium Chloride ER 20 MEQ TAB.ER.PRT 40 MEQ PO (12:16)
[2025-04-14] MEDS: DAPTOmycin 600 MG in 0.9 % Sodium Chloride 50 ML 93.17 MG IV (21:06)
[2025-04-15] VITALS (7 sets, daily range): BP systolic 131–177; BP diastolic 61–92; PULSE 81–106; RESP 17–20; TEMP 36.5–36.9; O2SAT 94–97
[2025-04-15] MEDS: Butalb/Acetamin/Caff 50/325/40 TABLET 1 TAB PO (03:27)
--- NOTE | 2025-04-15 08:32 | P.PNIM_ITS ---
Subjective Subjective Date of Service: 04/15/25 Interval History: left leg numbness Physical Exam 2 Vital Signs: Vital Signs: Last Vital Signs Temp 98.0 F 04/15/25 07:49 Pulse 102 H 04/15/25 07:49 Resp 20 04/15/25 07:49 BP 177/92 H 04/15/25 07:49 Pulse Ox 96 04/15/25 07:49 O2 Del Method Room Air 04/15/25 07:49 O2 Flow Rate 3 04/14/25 11:09 BMI result Body Mass Index 40.5 Const: General: cooperative, comfortable, no acute distress, alert and awake Nutritional Appearance: obese Orientation/consciousness: patient oriented x3 HEENT: Head: Yes normocephalic and Yes atraumatic Neck: Neck: Yes trachea midline, Yes supple and Yes no JVD Resp: Effort & Inspection: normal respiratory effort Auscultation: clear to auscultation bilaterally Cardio: Jugular venous distension: no JVD Rate: regular rate Rhythm: r egular rhythm Heart sounds: S1 normal heart sound present, S2 normal heart sound present, no click, no gallops and no murmurs GI: Auscultation: normal bowel sounds Skin: General skin exam: no rashes or lesions noted Neuro: General: patient oriented x3 and no focal motor deficits Extrem: General: Yes no clubbing, cyanosis or edema Objective Data Active Medications Acetaminophen (Acetaminophen 325 Mg Tablet) 975 mg PO Q6H [facility] Last Admin: 04/15/25 03:28 Dose: Not Given Documented By: BRANDON Non-Admin Reason: cannot give with fioricet over limit Acetaminophen/Butalbital/Caffeine (Butalb/Acetamin/Caff 50/325/40 Tablet) 1 tab PO Q4H PRN PRN Reason: Headache Last Admin: 04/15/25 03:27 Dose: 1 tab Documented By: BRANDON Allopurinol (Allopurinol 100 Mg Tablet) 100 mg PO DAILY [facility] Last Admin: 04/14/25 09:26 Dose: 100 mg Documented By: ANA Baclofen (Baclofen 10 Mg Tablet) 10 mg PO DAILY [facility] Last Admin: 04/14/25 09:26 Dose: 10 mg Documented By: ANA Calcium Carbonate (Calcium Carbonate 750 Mg Tab.Chew) 750 mg PO Q4H PRN PRN Reason: Heartburn Cyanocobalamin (Cyanocobalamin (Vitamin B-12) 1,000 Mcg Tablet) 1,000 mcg PO DAILY [facility] Last Admin: 04/14/25 09:28 Dose: 1,000 mcg Documented By: ANA Diclofenac Sodium (Diclofenac Sodium Delayed Rel 75 Mg Tablet.) 75 mg PO BID [facility] Last Admin: 04/14/25 20:45 Dose: 75 mg Documented By: BRANDON Enoxaparin Sodium (Enoxaparin Sodium 40 Mg/0.4 Ml Syringe) 40 mg SUBCUT Q24H [facility] On Hold: 04/09/25 07:27 Last Admin: 04/08/25 20:56 Dose: 40 mg Documented By: REYNA Daptomycin 600 mg/ Sodium (Chloride) 62 mls @ 93.116 mls/hr IV Q24H [facility] Last Infusion: 04/14/25 22:55 Dose: Infused Documented By: BRANDON Losartan Potassium (Losartan Potassium 50 Mg Tablet) 50 mg PO DAILY [facility]; Protocol Last Admin: 04/14/25 09:26 Dose: 50 mg Documented By: ANA Magnesium Hydroxide (Milk Of Magnesia 30 Ml Oral.Susp) 30 ml PO DAILY PRN PRN Reason: Constipation Magnesium Oxide (Magnesium Oxide 400 Mg Tablet) 200 mg PO DAILY [facility] Last Admin: 04/14/25 09:27 Dose: 200 mg Documented By: ANA Melatonin (Melatonin 3 Mg Tablet) 6 mg PO BEDTIME PRN PRN Reason: Insomnia Montelukast Sodium (Montelukast Sodium 10 Mg Tablet) 10 mg PO DAILY [facility] Last Admin: 04/14/25 09:28 Dose: 10 mg Documented By: ANA Multivitamins/Vitamin C (Multivitamin Tablet) 1 tab PO DAILY [facility] Last Admin: 04/14/25 09:26 Dose: 1 tab Documented By: AAN Omeprazole (Omeprazole 20 Mg Capsule.) 20 mg PO DAILY@0630 [facility] Last Admin: 04/15/25 05:55 Dose: 20 mg Documented By: BRANDON Ondansetron HCl (Ondansetron Hcl 4 Mg/2 Ml Vial) 4 mg IVPUSH Q8H PRN PRN Reason: Nausea and Vomiting Sodium Chloride (0.9 % Sodium Chloride Flush 3 Ml Syringe) 3 ml IVFLUSH QSHIFT [facility] Last Admin: 04/14/25 21:20 Dose: 3 ml Documented By: BRANDON Tizanidine HCl (Tizanidine Hcl 4 Mg Tablet) 2 mg PO Q8H PRN PRN Reason: muscle spasticity Last Admin: 04/15/25 03:25 Dose: 2 mg Documented By: BRANDON Trazodone HCl (Trazodone Hcl 100 Mg Tablet) 400 mg PO BEDTIME [facility] Last Admin: 04/14/25 20:45 Dose: 400 mg Documented By: BRANDON Labs 04/14/25 05:25 04/14/25 05:25 Microbiology Microbiology Results: Microbiology 04/12/25 08:15 Blood Culture - Final Blood - Venous Methicillin Res Staph Aureus 04/12/25 08:15 Blood Culture - Final Blood - Venous Methicillin Res Staph Aureus Assessment and Plan (1) Sepsis: Status: Acute Plan 54F PMH htn, hld, copd, getd, gout, lumbar canal stenosis s/p right L3-4 L4-5 laminotomy with partial facetectomy and l5 formainotomy on 03/14/25 now complicated by mrsa bacteremia microabsecss, diskitis, myositis sepsis due to mrsa bacteremia, diskitis, myositis, microabscesses ID appreciated, changed to dapto (hold statin, monitor cpk), LIONEL negative, likely 8 weeks from negative culture iv abx at home, still positive from 04/12/25, follow up repeat from 04/14/25 neurosurgery following HLD hold statin while on dapto Hypertension losartan hypokalemia replace and monitor COPD Stable Gout Allopurinol Morbid obesity Weight loss recommended DVT prophylaxis Lovenox Full Code reason for continued hospitalization: bacteremia Quality Stroke Does the patient have a stroke diagnosis?: No VTE Prior VTE?: No VTE Risk Level:: Medical - moderate - high VTE Device Contraindication: Treatment Not Indicated VTE Drug Contraindication: N/A - Med Ordered
[2025-04-15] MEDS: Diclofenac Sodium Delayed Rel 75 MG TABLET.DR PO ×2 (08:46→21:03)
[2025-04-15] MEDS: 0.9 % Sodium Chloride Flush 3 ML SYRINGE IVFLUSH ×3 (08:47→21:36)
--- NOTE | 2025-04-15 09:13 | HO.NEUROPN_ITS ---
Neurosurgery Operative Note Date of Service: 04/15/25 Narrative: HPI: Vickie is a 54-year-old female who underwent right L3-4, L4-5 Laminotomy, Partial facetectomy and L5 foraminotomy with incidental durotomy on 03/14/25. She is admitted to 4th floor [facility] for continued inpatient management of wound infection with sepsis. Blood cultures and wound culture grew MRSA. Repeat blood cultures have consistently continued to grow gram (+) cocci / MRSA. LIONEL was completed yesterday showing no clear significant vegetation seen of the cardiac valves. Her last set of blood cultures came back yesterday and showed no growth after 24 hours. Today, the patient is seen sitting upright in her bedside chair on . She reports some left thigh pain with intermittent paresthesias.. She continues to report physically feel better each day. She has been up out of bed and ambulating around the unit with nursing staff. Physical Exam: The patient is A&OX4, and in no acute distress. She is conversant, and sits upright in bedside chair without issue. Strength of the bilateral lower extremities remains full. Her posterior wound dressing was removed, for wound inspection. Packing remains in place with wound remaining open about 1/2-1cm. There is very minimal drainage noted on gauze. No erythema surrounding the incision site. Plan: 54-year-old female who underwent right L3-4, L4-5 Laminotomy, Partial facetectomy and L5 foraminotomy with incidental durotomy on 03/14/25. She now has a wound infection, with wound cultures and blood cultures growing MRSA. LIONEL negative. Blood cultures now aspectic. We are currently recommending the following: - Per wound care: Gently cleanse wound with NS moist gauze, Pat dry.?Apply skin prep barrier to avlaro-wound, lightly pack with Durafiber AG, (Spiral cut the sheet into one piece) be sure to leave a wick for easy removal.? Cover with dry gauze and ABD Pad dressing.? Change Daily while inpatient. Off Load Pressure with Q2 hr turns and use of pillows when in bed. -Ambulation with assistance at least 3 x daily up and down the green or around the unit with nursing staff -Encourage incentive spirometry q1h -Physical therapy eval & treat -DVT ppx with pneumatic compression boots -Continued IV Daptomycin -Place PICC line when appropriate as blood cultures are aseptic -Will continue to appreciate wound care / cardiology / hospitalist recommendations. This was discussed with the attending neurosurgeon Dr. Bull who understands and agrees to this plan. Sumeet Bull MD,PhD [facility]
--- NOTE | 2025-04-15 12:42 | HO.POSTANES ---
Post Anesthesia Evaluation Post Anesthesia Evaluation Date of Service: 04/15/25 Vital Signs: Vital Signs Temp Pulse Resp BP Pulse Ox O2 Del Method 04/15/25 11:42 98.5 F 96 18 131/64 97 Room Air 04/15/25 07:49 98.0 F 102 H 20 177/92 H 96 Room Air 04/15/25 03:12 97.8 F 106 H 18 145/61 H 94 Room Air Anesthesia: Monitored Mental Status: Awake Pain Control: Satisfactory Nausea/Vomiting: None Hydration: Adequate Anesthesia-Related Issues: No Anes. Related Issues
[2025-04-15] MEDS: DAPTOmycin 600 MG in 0.9 % Sodium Chloride 50 ML 93.17 MG IV (21:34)
[2025-04-16 03:16] VITALS: BP 167/78; PULSE 92; RESP 18; TEMP 36; O2SAT 95
[2025-04-16 07:48] VITALS: BP 142/75; PULSE 82; RESP 20; TEMP 36.4; O2SAT 96
[2025-04-16] MEDS: Diclofenac Sodium Delayed Rel 75 MG TABLET.DR PO ×2 (08:33→21:11)
[2025-04-16] MEDS: 0.9 % Sodium Chloride Flush 3 ML SYRINGE IVFLUSH ×3 (08:37→21:19)
--- NOTE | 2025-04-16 08:40 | P.PNIM_ITS ---
Subjective Subjective Date of Service: 04/16/25 Interval History: left leg numbness and pain Physical Exam 2 Vital Signs: Vital Signs: Last Vital Signs Temp 97.6 F 04/16/25 07:48 Pulse 82 04/16/25 07:48 Resp 20 04/16/25 07:48 BP 142/75 H 04/16/25 07:48 Pulse Ox 96 04/16/25 07:48 O2 Del Method Room Air 04/16/25 07:48 O2 Flow Rate 3 04/14/25 11:09 BMI result Body Mass Index 40.5 Const: General: cooperative, comfortable, no acute distress, alert and awake Nutritional Appearance: obese Orientation/consciousness: patient oriented x3 HEENT: Head: Yes normocephalic and Yes atraumatic Neck: Neck: Yes trachea midline, Yes supple and Yes no JVD Resp: Effort & Inspection: normal respiratory effort Auscultation: clear to auscultation bilaterally Cardio: Jugular venous distension: no JVD Rate: regular rate Rhythm: r egular rhythm Heart sounds: S1 normal heart sound present, S2 normal heart sound present, no click, no gallops and no murmurs GI: Auscultation: normal bowel sounds Skin: General skin exam: no rashes or lesions noted Neuro: General: patient oriented x3 and no focal motor deficits Extrem: General: Yes no clubbing, cyanosis or edema Objective Data Active Medications Acetaminophen (Acetaminophen 325 Mg Tablet) 975 mg PO Q6H [facility] Last Admin: 04/16/25 08:33 Dose: 975 mg Documented By: JORGE Acetaminophen/Butalbital/Caffeine (Butalb/Acetamin/Caff 50/325/40 Tablet) 1 tab PO Q4H PRN PRN Reason: Headache Last Admin: 04/15/25 03:27 Dose: 1 tab Documented By: BRANDON Allopurinol (Allopurinol 100 Mg Tablet) 100 mg PO DAILY [facility] Last Admin: 04/16/25 08:32 Dose: 100 mg Documented By: JORGE Baclofen (Baclofen 10 Mg Tablet) 10 mg PO DAILY [facility] Last Admin: 04/16/25 08:31 Dose: 10 mg Documented By: JORGE Calcium Carbonate (Calcium Carbonate 750 Mg Tab.Chew) 750 mg PO Q4H PRN PRN Reason: Heartburn Cyanocobalamin (Cyanocobalamin (Vitamin B-12) 1,000 Mcg Tablet) 1,000 mcg PO DAILY [facility] Last Admin: 04/16/25 08:31 Dose: 1,000 mcg Documented By: JORGE Diclofenac Sodium (Diclofenac Sodium Delayed Rel 75 Mg Tablet.) 75 mg PO BID [facility] Last Admin: 04/16/25 08:33 Dose: 75 mg Documented By: JORGE Enoxaparin Sodium (Enoxaparin Sodium 40 Mg/0.4 Ml Syringe) 40 mg SUBCUT Q24H [facility] On Hold: 04/09/25 07:27 Last Admin: 04/08/25 20:56 Dose: 40 mg Documented By: REYNA Hydromorphone HCl (Hydromorphone Hcl 0.5 Mg/0.5 Ml Syringe) 0.5 mg IVPUSH Q4H PRN; Protocol PRN Reason: Pain, Severe (Pain Scale 7-10) Daptomycin 600 mg/ Sodium (Chloride) 62 mls @ 93.116 mls/hr IV Q24H [facility] Last Infusion: 04/16/25 00:05 Dose: Infused Documented By: BRANDON Losartan Potassium (Losartan Potassium 50 Mg Tablet) 50 mg PO DAILY [facility]; Protocol Last Admin: 04/16/25 08:32 Dose: 50 mg Documented By: JORGE Magnesium Hydroxide (Milk Of Magnesia 30 Ml Oral.Susp) 30 ml PO DAILY PRN PRN Reason: Constipation Magnesium Oxide (Magnesium Oxide 400 Mg Tablet) 200 mg PO DAILY [facility] Last Admin: 04/16/25 08:32 Dose: 200 mg Documented By: JORGE Melatonin (Melatonin 3 Mg Tablet) 6 mg PO BEDTIME PRN PRN Reason: Insomnia Montelukast Sodium (Montelukast Sodium 10 Mg Tablet) 10 mg PO DAILY [facility] Last Admin: 04/16/25 08:32 Dose: 10 mg Documented By: JORGE Multivitamins/Vitamin C (Multivitamin Tablet) 1 tab PO DAILY [facility] Last Admin: 04/16/25 08:31 Dose: 1 tab Documented By: JORGE Omeprazole (Omeprazole 20 Mg Capsule.) 20 mg PO DAILY@0630 [facility] Last Admin: 04/16/25 04:46 Dose: 20 mg Documented By: BRANDON Ondansetron HCl (Ondansetron Hcl 4 Mg/2 Ml Vial) 4 mg IVPUSH Q8H PRN PRN Reason: Nausea and Vomiting Sodium Chloride (0.9 % Sodium Chloride Flush 3 Ml Syringe) 3 ml IVFLUSH QSHIFT [facility] Last Admin: 04/16/25 08:37 Dose: 3 ml Documented By: JORGE Tizanidine HCl (Tizanidine Hcl 4 Mg Tablet) 2 mg PO Q8H PRN PRN Reason: muscle spasticity Last Admin: 04/16/25 04:46 Dose: 2 mg Documented By: BRANDON Trazodone HCl (Trazodone Hcl 100 Mg Tablet) 400 mg PO BEDTIME [facility] Last Admin: 04/15/25 21:04 Dose: 400 mg Documented By: BRANDON Labs 04/14/25 05:25 04/14/25 05:25 Microbiology Microbiology Results: Microbiology 04/14/25 05:26 Blood Culture - Preliminary Blood - Venous No growth after 48 hours. 04/14/25 05:25 Blood Culture - Preliminary Blood - Venous No growth after 48 hours. Assessment and Plan (1) Sepsis: Status: Acute Plan 54F PMH htn, hld, copd, getd, gout, lumbar canal stenosis s/p right L3-4 L4-5 laminotomy with partial facetectomy and l5 formainotomy on 03/14/25 now complicated by mrsa bacteremia microabsecss, diskitis, myositis sepsis due to mrsa bacteremia, diskitis, myositis, microabscesses ID appreciated, changed to dapto (hold statin, monitor cpk), LIONEL negative, likely 8 weeks from negative culture iv abx at home, so far negative from 04/14/25, end date would be 06/08/25, plan for picc 04/17/25 neurosurgery following HLD hold statin while on dapto Hypertension losartan hypokalemia replaced COPD Stable Gout Allopurinol Morbid obesity Weight loss recommended DVT prophylaxis Lovenox Full Code reason for continued hospitalization: bacteremia Quality Stroke Does the patient have a stroke diagnosis?: No VTE Prior VTE?: No VTE Risk Level:: Medical - moderate - high VTE Device Contraindication: Treatment Not Indicated VTE Drug Contraindication: N/A - Med Ordered
[2025-04-16 12:00] VITALS: BP 144/76; PULSE 80; RESP 20; TEMP 37; O2SAT 96
[2025-04-16 15:14] VITALS: BP 135/68; PULSE 93; RESP 18; TEMP 36.2; O2SAT 96
[2025-04-16 19:40] VITALS: BP 152/72; PULSE 86; RESP 18; TEMP 36.1; O2SAT 95
[2025-04-16] MEDS: Butalb/Acetamin/Caff 50/325/40 TABLET 1 TAB PO (21:17)
[2025-04-16] MEDS: DAPTOmycin 600 MG in 0.9 % Sodium Chloride 50 ML 93.11 MG IV (21:18)
[2025-04-16 23:46] VITALS: BP 177/79; PULSE 87; RESP 18; TEMP 36.2; O2SAT 96
[2025-04-17 00:02] VITALS: BP 152/84
[2025-04-17 04:00] VITALS: BP 173/86; PULSE 97; RESP 18; TEMP 36.7; O2SAT 95
[2025-04-17 04:47] VITALS: BP 166/84
[2025-04-17 07:21] VITALS: BP 148/75; PULSE 84; RESP 16; TEMP 36.4; O2SAT 97
[2025-04-17 07:25] VITALS: BP 131/59; PULSE 80; RESP 17; TEMP 36.2; O2SAT 96
[2025-04-17] MEDS: Diclofenac Sodium Delayed Rel 75 MG TABLET.DR PO (09:18)
--- NOTE | 2025-04-17 09:19 | P.PNIM_ITS ---
Subjective Subjective Date of Service: 04/17/25 Interval History: left leg pain improved Physical Exam 2 Vital Signs: Vital Signs: Last Vital Signs Temp 97.2 F 04/17/25 07:25 Pulse 80 04/17/25 07:25 Resp 17 04/17/25 07:25 BP 131/59 L 04/17/25 07:25 Pulse Ox 96 04/17/25 07:25 O2 Del Method Room Air 04/17/25 07:25 O2 Flow Rate 3 04/14/25 11:09 BMI result Body Mass Index 40.5 Const: General: cooperative, comfortable, no acute distress, alert and awake Nutritional Appearance: obese Orientation/consciousness: patient oriented x3 HEENT: Head: Yes normocephalic and Yes atraumatic Neck: Neck: Yes trachea midline, Yes supple and Yes no JVD Resp: Effort & Inspection: normal respiratory effort Auscultation: clear to auscultation bilaterally Cardio: Jugular venous distension: no JVD Rate: regular rate Rhythm: r egular rhythm Heart sounds: S1 normal heart sound present, S2 normal heart sound present, no click, no gallops and no murmurs GI: Auscultation: normal bowel sounds Skin: General skin exam: no rashes or lesions noted Neuro: General: patient oriented x3 and no focal motor deficits Extrem: General: Yes no clubbing, cyanosis or edema Objective Data Active Medications Acetaminophen (Acetaminophen 325 Mg Tablet) 975 mg PO Q6H [facility] Last Admin: 04/17/25 05:43 Dose: Not Given Documented By: REBECCA Non-Admin Reason: Patient Asleep Acetaminophen/Butalbital/Caffeine (Butalb/Acetamin/Caff 50/325/40 Tablet) 1 tab PO Q4H PRN PRN Reason: Headache Last Admin: 04/16/25 21:17 Dose: 1 tab Documented By: REBECCA Allopurinol (Allopurinol 100 Mg Tablet) 100 mg PO DAILY [facility] Last Admin: 04/16/25 08:32 Dose: 100 mg Documented By: HEAVENDONMisty Baclofen (Baclofen 10 Mg Tablet) 10 mg PO DAILY [facility] Last Admin: 04/16/25 08:31 Dose: 10 mg Documented By: JORGE Calcium Carbonate (Calcium Carbonate 750 Mg Tab.Chew) 750 mg PO Q4H PRN PRN Reason: Heartburn Cyanocobalamin (Cyanocobalamin (Vitamin B-12) 1,000 Mcg Tablet) 1,000 mcg PO DAILY [facility] Last Admin: 04/16/25 08:31 Dose: 1,000 mcg Documented By: JORGE Diclofenac Sodium (Diclofenac Sodium Delayed Rel 75 Mg Tablet.) 75 mg PO BID [facility] Last Admin: 04/16/25 21:11 Dose: 75 mg Documented By: REBECCA Enoxaparin Sodium (Enoxaparin Sodium 40 Mg/0.4 Ml Syringe) 40 mg SUBCUT Q24H [facility] On Hold: 04/09/25 07:27 Last Admin: 04/08/25 20:56 Dose: 40 mg Documented By: REYNA Hydromorphone HCl (Hydromorphone Hcl 0.5 Mg/0.5 Ml Syringe) 0.5 mg IVPUSH Q4H PRN; Protocol PRN Reason: Pain, Severe (Pain Scale 7-10) Last Admin: 04/17/25 02:31 Dose: 0.5 mg Documented By: REBECCA Daptomycin 600 mg/ Sodium (Chloride) 62 mls @ 93.116 mls/hr IV Q24H [facility] Last Infusion: 04/16/25 21:58 Dose: Infused Documented By: REBECCA Losartan Potassium (Losartan Potassium 50 Mg Tablet) 50 mg PO DAILY [facility]; Protocol Last Admin: 04/16/25 08:32 Dose: 50 mg Documented By: JORGE Magnesium Hydroxide (Milk Of Magnesia 30 Ml Oral.Susp) 30 ml PO DAILY PRN PRN Reason: Constipation Magnesium Oxide (Magnesium Oxide 400 Mg Tablet) 200 mg PO DAILY [facility] Last Admin: 04/16/25 08:32 Dose: 200 mg Documented By: JORGE Melatonin (Melatonin 3 Mg Tablet) 6 mg PO BEDTIME PRN PRN Reason: Insomnia Montelukast Sodium (Montelukast Sodium 10 Mg Tablet) 10 mg PO DAILY [facility] Last Admin: 04/16/25 08:32 Dose: 10 mg Documented By: JORGE Multivitamins/Vitamin C (Multivitamin Tablet) 1 tab PO DAILY [facility] Last Admin: 04/16/25 08:31 Dose: 1 tab Documented By: JORGE Omeprazole (Omeprazole 20 Mg Capsule.) 20 mg PO DAILY@0630 [facility] Last Admin: 04/17/25 06:37 Dose: 20 mg Documented By: REBECCA Ondansetron HCl (Ondansetron Hcl 4 Mg/2 Ml Vial) 4 mg IVPUSH Q8H PRN PRN Reason: Nausea and Vomiting Sodium Chloride (0.9 % Sodium Chloride Flush 3 Ml Syringe) 3 ml IVFLUSH QSHIFT [facility] Last Admin: 04/16/25 21:19 Dose: 3 ml Documented By: REBECCA Tizanidine HCl (Tizanidine Hcl 4 Mg Tablet) 2 mg PO Q8H PRN PRN Reason: muscle spasticity Last Admin: 04/16/25 17:04 Dose: 2 mg Documented By: ANA Trazodone HCl (Trazodone Hcl 100 Mg Tablet) 400 mg PO BEDTIME [facility] Last Admin: 04/16/25 21:09 Dose: 400 mg Documented By: REBECCA Labs 04/14/25 05:25 04/14/25 05:25 Microbiology Microbiology Results: Microbiology 04/14/25 05:26 Blood Culture - Preliminary Blood - Venous No growth after 48 hours. 04/14/25 05:25 Blood Culture - Preliminary Blood - Venous No growth after 48 hours. Assessment and Plan (1) Sepsis: Status: Acute Plan 54F PMH htn, hld, copd, getd, gout, lumbar canal stenosis s/p right L3-4 L4-5 laminotomy with partial facetectomy and l5 formainotomy on 03/14/25 now complicated by mrsa bacteremia microabsecss, diskitis, myositis sepsis due to mrsa bacteremia, diskitis, myositis, microabscesses ID appreciated, changed to dapto (hold statin, monitor cpk), LIONEL negative, likely 8 weeks from negative culture iv abx at home, so far negative from 04/14/25, end date would be 06/08/25, plan for picc 04/17/25 neurosurgery following HLD hold statin while on dapto Hypertension losartan hypokalemia replaced COPD Stable Gout Allopurinol Morbid obesity Weight loss recommended DVT prophylaxis Lovenox Full Code reason for continued hospitalization: dispo planning Quality Stroke Does the patient have a stroke diagnosis?: No VTE Prior VTE?: No VTE Risk Level:: Medical - moderate - high VTE Device Contraindication: Treatment Not Indicated VTE Drug Contraindication: N/A - Med Ordered
[2025-04-17] MEDS: 0.9 % Sodium Chloride Flush 3 ML SYRINGE IVFLUSH ×2 (09:20→18:47)
--- NOTE | 2025-04-17 09:24 | P.DS_ITS ---
DS: Providers Provider Date of Service: 04/17/25 Date of admission: 04/08/25 15:38 Date of discharge: 04/17/25 Primary care physician: Festus Lang PA-C Consults: 04/08/25 16:27 Consult to Neurosurgery Routine Consulting Provider: Juan Diego Bull Reason for consultation: Infection s/p uncomplicated L3-5 lumbar decompression on 03/14/25 04/08/25 21:01 Consult to Infectious Diseases Routine Consulting Provider: [facility] Reason for consultation: Concern for L2-L3 discitis and osteomyelitis 04/08/25 23:18 Consult to Wound Care Routine Reason for consultation: Dehisced surgical incision, low back midline 04/11/25 15:36 Consult to Cardiology Routine Consulting Provider: [facility] Reason for consultation: mrsa bacteremia, ?VANNA Has provider been notified: Yes 04/12/25 13:04 Consult to Wound Care Routine Reason for consultation: Advise re: packing wound and dressing changes DS: Diagnosis Discharge Diagnosis (1) Sepsis: Status: Acute DS: Summary Hospital Course Hospital Course: from initial hpi: 54-year-old female with a PMH significant for HTN, HLD, COPD,?GERD, lumbar canal stenosis s/p right L3-4 L4-5 laminotomy with partial facetectomy and L5 foraminotomy on 03/14/[address] Bull who presents to the ED with?right- sided lower back and hip pain, generally feeling unwell, and worsening surgical incision site. Pt reports initially incision site was looking great up until 2 weeks ago when scabs fell off and top of the incision opened up. Was seen at spinal clinic and MRI was done that showed a 7 x 6 x 5 cm fluid collection within the posterior soft tissues at the site of recent surgery that was initially initially thought to be a simple postoperative collection. A few days ago patient's wound began leaking foul-smelling discharge and then wound Tsang dehisced. Pt was seen at neurology spinal office where wound specimen was collected and pt was started on Bactrim DS. Pt reports has had increased numbness in right foot since the surgery, but has been consistent with the past 3 weeks. Denies any worsening numbness, tingling, or pain in lower extremities. No saddle anesthesia. No increased lower leg weakness. Denies any change to bowel or bladder habits. Denies fever, chills, nausea, vomiting, abdominal pain. No SOB or difficulty breathing. Denies chest pain/pressure, palpitations. In the ED pt was afebrile but tachycardic up to 116 and hypotensive as low as 85/39. Labs were significant for leukocytosis of 14.0, anemia 10.2/29.1, bandemia of 16, ESR 102, sodium 131, creatinine mildly elevated 1.08, initial lactic acid 4.2 with repeat 1.5, AST 74, ALT 142, alk-phos 187, and CRP 40.74. Wound culture from yesterday showed 4+ bacteria positive for staph aureus. Pt was treated in the ED with ondansetron, acetaminophen, fentanyl, sepsis bolus fluids, vancomycin, and Zosyn. Pt is admitted to the hospital for treatment and further evaluation of wound infection with sepsis concerning for abscess vs osteo. hospital course: Patient was admitted for sepsis due to MRSA bacteremia due to diskitis, myositis, micro abscesses. Was initially treated with vancomycin then seen by infectious disease who recommended changing to daptomycin. Due to persistent blood cultures vanna was performed which was negative for endocarditis. Blood cultures eventually cleared on 04/14/2025. PICC line was inserted and patient will continue daptomycin until 06/08/2025 to complete 8 weeks antibiotics. We will monitor CPK weekly and hold statin. Patient will continue follow up with Neurosurgery. For hyperlipidemia statin held as mentioned. For hypertension continued on losartan. For hypokalemia received replacement. For COPD remained stable. For gout continued on allopurinol. For morbid obesity weight loss recommended. Patient is feeling better will be discharged home. Time Attestation Discharge Coordination Time (in mins): 33 Quality: Safe Use of Opioids Does Pt have an Active Cancer Diagnosis on the Problem List?: No Quality: Stroke Does the patient have a stroke diagnosis?: No Physical Exam Vital Signs: Vital Signs: Last Vital Signs Temp 97.2 F 04/17/25 07:25 Pulse 80 04/17/25 07:25 Resp 17 04/17/25 07:25 BP 131/59 L 04/17/25 07:25 Pulse Ox 96 04/17/25 07:25 O2 Del Method Room Air 04/17/25 07:25 O2 Flow Rate 3 04/14/25 11:09 BMI result Body Mass Index 40.5 General: AO X 3, no acute distress Resp: CTA bilateral, no accessory muscles used CVS: S1,S2,RRR GI: soft, non tender, non distended Neuro: motor grossly intact, alert Psych: appropriate affect, appropriate insight DS: Data Data Completed and Pending Labs on day of discharge: Preliminary micro results at discharge 04/14/25 05:26 Blood Culture - Preliminary Blood - Venous No growth after 48 hours. 04/14/25 05:25 Blood Culture - Preliminary Blood - Venous No growth after 48 hours. Discharge Plan Discharge Anticipated Discharge Date/Time: 04/17/25 09:21 Patient Disposition: Home Health Service Discharge Diagnosis: mrsa bacteremia Referrals: Festus Lang PA-C [Primary Care Provider, Internal Medicine] - 1 Week Zayda Ansari MD [Physician, Infectious Disease] - 1 Week Juan Diego Bull MD, PhD [Physician, Neuro Spine] - 1 Week Discharge Medications: New daptomycin 500 mg Recon Soln 600 mg IV Q24H Qty: 0 0RF Continued diclofenac sodium 75 mg tablet,delayed release (DR/EC) 75 mg PO BID 90 Days Qty: 180 2RF magnesium oxide 250 mg magnesium tablet 250 mg PO DAILY 90 Days Qty: 90 2RF allopurinol 100 mg tablet 100 mg PO DAILY Qty: 30 11RF losartan 50 mg tablet 50 mg PO DAILY Qty: 90 5RF montelukast 10 mg tablet 10 mg PO DAILY 90 Days Qty: 90 8RF pantoprazole 40 mg tablet,delayed release (DR/EC) 40 mg PO DAILY Qty: 90 1RF (DME) rollator walker with seat See Rx Instructions .Route .MEDSUPPLY Qty: 1 0RF Rx Instructions: As directed trazodone 100 mg tablet 400 mg PO BEDTIME 30 Days Qty: 120 6RF clonidine HCl 0.3 mg tablet 0.3 mg PO BEDTIME Qty: 90 2RF cyanocobalamin (vitamin B-12) [Vitamin B-12] 1,000 mcg tablet 1,000 mcg PO DAILY Qty: 90 1RF tizanidine 2 mg tablet 2 mg PO Q8H PRN (Reason: muscle spasticity) omega-3 fatty acids 500 mg Capsule 500 mg PO DAILY hydrocodone-acetaminophen 5-325 mg tablet 1 - 2 tab PO Q6H PRN (Reason: pain) baclofen 10 mg tablet 10 mg PO DAILY hydromorphone 4 mg tablet 4 mg PO Q6H PRN (Reason: pain) Patient Comments: 04/08/25: Patient reports taking 1 whole tab Rx Instructions: Take 1/2 tablet orally every 6 hours PRN; Partial Fill upon patient request. multivitamin Tablet 1 tab PO DAILY ergotamine-caffeine 1-100 mg tablet 1 tab PO Q30M MDD 6 mg PRN (Reason: migraine headache) 30 Days Qty: 30 7RF Rx Instructions: do not exceed 6 mg per day or 10 mg per wk Held atorvastatin 40 mg tablet 40 mg PO DAILY 90 Days Qty: 90 1RF Hold Instructions: Resume on 06/09/25. Discontinued sulfamethoxazole-trimethoprim [Bactrim DS] 800-160 mg tablet 1 tab PO BID Qty: 30 0RF Discharge Orders: Discharge Order (Routine); Ordered 04/17/25 Ordered By: Uche Luis Diet: Advance to usual diet Activity on Discharge: As tolerated Stand Alone Forms: Patient Portal Discharge page Print Language: Stateless Activity Restrictions/Additional Instructions: Wound care: Visiting nurse to change dressing daily - Gently cleanse wound with NS moist gauze, Pat dry.?Apply skin prep barrier to alvaro-wound, lightly pack with Durafiber AG, (Spiral cut the sheet into one piece) be sure to leave a wick for easy removal.? Cover with dry gauze and ABD Pad dressing.?Off Load Pressure with Q2 hr turns and use of pillows when in bed. Mobility: You may be up out of bed at your discretion while at home. You should try to mobilize multiple times per day as much as you can. Follow up: Our office staff will call you to schedule a follow up in clinic next week for evaluation. Pain control: You are currently prescribed Hydromorphone (Dilaudid) Please call the office if you require refill /additional pain control medications. Care Plan Goals: Recovery Health Concerns: MRSA bacteremia and back infection Plan of Treatment: Eight weeks daptomycin, to be completed 06/08/2025, monitor labs weekly including CPK, hold statin until after treatment, follow up with Infectious Disease and Neurosurgery Assessment: HPI: Vickie is a 54-year-old female who underwent right L3-4, L4-5 Laminotomy, Partial facetectomy and L5 foraminotomy with incidental durotomy on 03/14/25. She is admitted to 4th floor [facility] for continued inpatient management of wound infection with sepsis. Blood cultures and wound culture grew MRSA. Repeat blood cultures are aseptic. VANNA and cardiac workup has been unremarkable. Today, the patient is seen sitting upright in her bedside chair on , accompanied by her . She continues to report some right foot numbness, and some left thigh pain with intermittent paresthesias. PICC line is scheduled to be placed this afternoon, and hospitalist team is planning for DC home later today with at home nursing for Abx administration. Physical Exam: The patient is A&OX4, and in no acute distress. She is conversant, and sits upright in bedside chair without issue. Her posterior wound dressing was removed, for wound inspection. Packing remains in place with wound remaining open about 1/2-1cm. There is very minimal drainage noted on gauze. No erythema surrounding the incision site. Plan: 54-year-old female who underwent right L3-4, L4-5 Laminotomy, Partial facetectomy and L5 foraminotomy with incidental durotomy on 03/14/25. She is admitted with a wound infection, blood cultures now aspectic. We are currently recommending the following: -Place PICC line this afternoon. -Discharge home today at discretion of hospitalist team. -Continue IV Abx at home with at home nursing. -Visiting nurse to change dressing daily: Gently cleanse wound with NS moist gauze, Pat dry.?Apply skin prep barrier to alvaro-wound, lightly pack with Durafiber AG, (Spiral cut the sheet into one piece) be sure to leave a wick for easy removal.? Cover with dry gauze and ABD Pad dressing.?Off Load Pressure with Q2 hr turns and use of pillows when in bed. -Ambulate ad libitum when at home. -Follow up in clinic next week for evaluation. This was discussed with the attending neurosurgeon Dr. Bull who understands and agrees to this plan. Sumeet Bull MD,PhD [facility]
--- NOTE | 2025-04-17 09:26 | W.MHC.F2F ---
Service Date Service Date: 04/17/25 Encounter Date of encounter: 04/17/25 Reasons for Services Signs and symptoms assessed: back and leg pain Reason for correction: medication management and medication treatment Homebound: Leaving the home is medically contraindicated at this time without the asist of a device and/or another person due th the listed conditions above and below. Reason homebound: pain with ambulation Certification: Based on the above findings, I certify that this patient is confined to the home and needs intermittent correction care, physical therapy and/or speech therapy, or continues to need occupational therapy. The patient is under my care, and I have initiated the establishment of the plan of care. The patient will be followed by a physician who will periodically review the plan of care. Time Spent With Patient Time: Total time managing care of this patient today ____ minutes.
--- NOTE | 2025-04-17 10:27 | MHC.CM.PN ---
Addendum entered by Sydnie Parker RN 04/17/25 16:23: [facility] WILL SEE PT EVERY OTHER DAY FOR WOUND CARE, TO BE TAUGHT AT BEDSIDE PRIOR TO DC AND PT WILL BE SENT HOME W/SUPPLIES. Original Note: IMM 04/17/25, ANTIC PT WILL BE MEDICALLY CLEARED PENDING PICC LINE PLACEMENT FOR DC HOME W/[facility] FOR 8WKS IV DAPTO 600MG Q24HRS END DATE 06/08 AND [facility] FOR SN/PT, FAMILY FOR TRANSPORT.
[2025-04-17 11:17] VITALS: BP 114/67; PULSE 84; RESP 18; TEMP 36.8; O2SAT 95
--- NOTE | 2025-04-17 14:27 | HO.NEUROPN_ITS ---
Neurosurgery Operative Note Date of Service: 04/17/25 Narrative: HPI: Vickie is a 54-year-old female who underwent right L3-4, L4-5 Laminotomy, Partial facetectomy and L5 foraminotomy with incidental durotomy on 03/14/25. She is admitted to 4th floor [facility] for continued inpatient management of wound infection with sepsis. Blood cultures and wound culture grew MRSA. Repeat blood cultures are aseptic. LIONEL and cardiac workup has been unremarkable. Today, the patient is seen sitting upright in her bedside chair on , accompanied by her . She continues to report some right foot numbness, and some left thigh pain with intermittent paresthesias. PICC line is scheduled to be placed this afternoon, and hospitalist team is planning for DC home later today with at home nursing for Abx administration. Physical Exam: The patient is A&OX4, and in no acute distress. She is conversant, and sits upright in bedside chair without issue. Her posterior wound dressing was removed, for wound inspection. Packing remains in place with wound remaining open about 1/2-1cm. There is very minimal drainage noted on gauze. No erythema surrounding the incision site. Plan: 54-year-old female who underwent right L3-4, L4-5 Laminotomy, Partial facetectomy and L5 foraminotomy with incidental durotomy on 03/14/25. She is admitted with a wound infection, blood cultures now aspectic. We are currently recommending the following: -Place PICC line this afternoon. -Discharge home today at discretion of hospitalist team. -Continue IV Abx at home with at home nursing. -Visiting nurse to change dressing daily: Gently cleanse wound with NS moist gauze, Pat dry.?Apply skin prep barrier to alvaro-wound, lightly pack with Durafiber AG, (Spiral cut the sheet into one piece) be sure to leave a wick for easy removal.? Cover with dry gauze and ABD Pad dressing.?Off Load Pressure with Q2 hr turns and use of pillows when in bed. -Ambulate ad libitum when at home. -Follow up in clinic next week for evaluation. This was discussed with the attending neurosurgeon Dr. Bull who understands and agrees to this plan. Sumeet Bull MD,PhD [facility]
--- NOTE | 2025-04-17 14:33 | P.DS_ITS ---
DS: Providers Provider Date of Service: 04/17/25 Date of admission: 04/08/25 15:38 Date of discharge: 04/17/25 Primary care physician: Festus Lang PA-C Consults: 04/08/25 16:27 Consult to Neurosurgery Routine Consulting Provider: Juan Diego Bull Reason for consultation: Infection s/p uncomplicated L3-5 lumbar decompression on 03/14/25 04/08/25 21:01 Consult to Infectious Diseases Routine Consulting Provider: [facility] [place] [facility] Reason for consultation: Concern for L2-L3 discitis and osteomyelitis 04/08/25 23:18 Consult to Wound Care Routine Reason for consultation: Dehisced surgical incision, low back midline 04/11/25 15:36 Consult to Cardiology Routine Consulting Provider: [facility] [place] [facility] Reason for consultation: mrsa bacteremia, ?VANNA Has provider been notified: Yes 04/12/25 13:04 Consult to Wound Care Routine Reason for consultation: Advise re: packing wound and dressing changes DS: Diagnosis Discharge Diagnosis (1) Sepsis: Status: Acute DS: Summary Hospital Course Hospital Course: from initial hpi: 54-year-old female with a PMH significant for HTN, HLD, COPD,?GERD, lumbar canal stenosis s/p right L3-4 L4-5 laminotomy with partial facetectomy and L5 foraminotomy on 03/14/[address] Bull who presents to the ED with?right- sided lower back and hip pain, generally feeling unwell, and worsening surgical incision site. Pt reports initially incision site was looking great up until 2 weeks ago when scabs fell off and top of the incision opened up. Was seen at spinal clinic and MRI was done that showed a 7 x 6 x 5 cm fluid collection within the posterior soft tissues at the site of recent surgery that was initially initially thought to be a simple postoperative collection. A few days ago patient's wound began leaking foul-smelling discharge and then wound Tsang dehisced. Pt was seen at neurology spinal office where wound specimen was collected and pt was started on Bactrim DS. Pt reports has had increased numbness in right foot since the surgery, but has been consistent with the past 3 weeks. Denies any worsening numbness, tingling, or pain in lower extremities. No saddle anesthesia. No increased lower leg weakness. Denies any change to bowel or bladder habits. Denies fever, chills, nausea, vomiting, abdominal pain. No SOB or difficulty breathing. Denies chest pain/pressure, palpitations. In the ED pt was afebrile but tachycardic up to 116 and hypotensive as low as 85/39. Labs were significant for leukocytosis of 14.0, anemia 10.2/29.1, bandemia of 16, ESR 102, sodium 131, creatinine mildly elevated 1.08, initial lactic acid 4.2 with repeat 1.5, AST 74, ALT 142, alk-phos 187, and CRP 40.74. Wound culture from yesterday showed 4+ bacteria positive for staph aureus. Pt was treated in the ED with ondansetron, acetaminophen, fentanyl, sepsis bolus fluids, vancomycin, and Zosyn. Pt is admitted to the hospital for treatment and further evaluation of wound infection with sepsis concerning for abscess vs osteo. hospital course: Patient was admitted for sepsis due to MRSA bacteremia due to diskitis, myositis, micro abscesses. Was initially treated with vancomycin then seen by infectious disease who recommended changing to daptomycin. Due to persistent blood cultures vanna was performed which was negative for endocarditis. Blood cultures eventually cleared on 04/14/2025. PICC line was inserted and patient will continue daptomycin until 06/08/2025 to complete 8 weeks antibiotics. We will monitor CPK weekly and hold statin. Patient will continue follow up with Neurosurgery. For hyperlipidemia statin held as mentioned. For hypertension continued on losartan. For hypokalemia received replacement. For COPD remained stable. For gout continued on allopurinol. For morbid obesity weight loss recommended. Patient is feeling better will be discharged home. Time Attestation Discharge Coordination Time (in mins): 12 Quality: Safe Use of Opioids Does Pt have an Active Cancer Diagnosis on the Problem List?: No Quality: Stroke Does the patient have a stroke diagnosis?: No Physical Exam Vital Signs: Vital Signs: Last Vital Signs Temp 98.3 F 04/17/25 11:17 Pulse 84 04/17/25 11:17 Resp 18 04/17/25 11:17 BP 114/67 04/17/25 11:17 Pulse Ox 95 04/17/25 11:17 O2 Del Method Room Air 04/17/25 11:17 O2 Flow Rate 3 04/14/25 11:09 BMI result Body Mass Index 40.5 DS: Data Data Completed and Pending Labs on day of discharge: Preliminary micro results at discharge 04/14/25 05:26 Blood Culture - Preliminary Blood - Venous No growth after 48 hours. 04/14/25 05:25 Blood Culture - Preliminary Blood - Venous No growth after 48 hours. Discharge Plan Discharge Anticipated Discharge Date/Time: 04/17/25 09:21 Patient Disposition: Home Health Service Discharge Diagnosis: mrsa bacteremia Referrals: Festus Lang PA-C [Primary Care Provider, Internal Medicine] - 1 Week Zayda Ansari MD [Physician, Infectious Disease] - 1 Week Juan Diego Bull MD, PhD [Physician, Neuro Spine] - 1 Week Discharge Medications: New daptomycin 500 mg Recon Soln 600 mg IV Q24H Qty: 0 0RF Continued diclofenac sodium 75 mg tablet,delayed release (DR/EC) 75 mg PO BID 90 Days Qty: 180 2RF magnesium oxide 250 mg magnesium tablet 250 mg PO DAILY 90 Days Qty: 90 2RF allopurinol 100 mg tablet 100 mg PO DAILY Qty: 30 11RF losartan 50 mg tablet 50 mg PO DAILY Qty: 90 5RF montelukast 10 mg tablet 10 mg PO DAILY 90 Days Qty: 90 8RF pantoprazole 40 mg tablet,delayed release (DR/EC) 40 mg PO DAILY Qty: 90 1RF (DME) rollator walker with seat See Rx Instructions .Route .MEDSUPPLY Qty: 1 0RF Rx Instructions: As directed trazodone 100 mg tablet 400 mg PO BEDTIME 30 Days Qty: 120 6RF clonidine HCl 0.3 mg tablet 0.3 mg PO BEDTIME Qty: 90 2RF cyanocobalamin (vitamin B-12) [Vitamin B-12] 1,000 mcg tablet 1,000 mcg PO DAILY Qty: 90 1RF tizanidine 2 mg tablet 2 mg PO Q8H PRN (Reason: muscle spasticity) omega-3 fatty acids 500 mg Capsule 500 mg PO DAILY hydrocodone-acetaminophen 5-325 mg tablet 1 - 2 tab PO Q6H PRN (Reason: pain) baclofen 10 mg tablet 10 mg PO DAILY hydromorphone 4 mg tablet 4 mg PO Q6H PRN (Reason: pain) Patient Comments: 04/08/25: Patient reports taking 1 whole tab Rx Instructions: Take 1/2 tablet orally every 6 hours PRN; Partial Fill upon patient request. multivitamin Tablet 1 tab PO DAILY ergotamine-caffeine 1-100 mg tablet 1 tab PO Q30M MDD 6 mg PRN (Reason: migraine headache) 30 Days Qty: 30 7RF Rx Instructions: do not exceed 6 mg per day or 10 mg per wk Held atorvastatin 40 mg tablet 40 mg PO DAILY 90 Days Qty: 90 1RF Hold Instructions: Resume on 06/09/25. Discontinued sulfamethoxazole-trimethoprim [Bactrim DS] 800-160 mg tablet 1 tab PO BID Qty: 30 0RF Discharge Orders: Discharge Order (Routine); Ordered 04/17/25 Ordered By: Uche Luis Diet: Advance to usual diet Activity on Discharge: As tolerated Stand Alone Forms: Patient Portal Discharge page Print Language: [place] Activity Restrictions/Additional Instructions: Wound care: Visiting nurse to change dressing daily - Gently cleanse wound with NS moist gauze, Pat dry.?Apply skin prep barrier to alvaro-wound, lightly pack with Durafiber AG, (Spiral cut the sheet into one piece) be sure to leave a wick for easy removal.? Cover with dry gauze and ABD Pad dressing.?Off Load Pressure with Q2 hr turns and use of pillows when in bed. Mobility: You may be up out of bed at your discretion while at home. You should try to mobilize multiple times per day as much as you can. Follow up: Our office staff will call you to schedule a follow up in clinic next week for evaluation. Pain control: You are currently prescribed Hydromorphone (Dilaudid) Please call the office if you require refill /additional pain control medications. Care Plan Goals: Recovery Health Concerns: MRSA bacteremia and back infection Plan of Treatment: Eight weeks daptomycin, to be completed 06/08/2025, monitor labs weekly including CPK, hold statin until after treatment, follow up with Infectious Disease and Neurosurgery Assessment: HPI: Vickie is a 54-year-old female who underwent right L3-4, L4-5 Laminotomy, Partial facetectomy and L5 foraminotomy with incidental durotomy on 03/14/25. She is admitted to 4th floor [facility] for continued inpatient management of wound infection with sepsis. Blood cultures and wound culture grew MRSA. Repeat blood cultures are aseptic. VANNA and cardiac workup has been unremarkable. Today, the patient is seen sitting upright in her bedside chair on , accompanied by her . She continues to report some right foot numbness, and some left thigh pain with intermittent paresthesias. PICC line is scheduled to be placed this afternoon, and hospitalist team is planning for DC home later today with at home nursing for Abx administration. Physical Exam: The patient is A&OX4, and in no acute distress. She is conversant, and sits upright in bedside chair without issue. Her posterior wound dressing was removed, for wound inspection. Packing remains in place with wound remaining open about 1/2-1cm. There is very minimal drainage noted on gauze. No erythema surrounding the incision site. Plan: 54-year-old female who underwent right L3-4, L4-5 Laminotomy, Partial facetectomy and L5 foraminotomy with incidental durotomy on 03/14/25. She is admitted with a wound infection, blood cultures now aspectic. We are currently recommending the following: -Place PICC line this afternoon. -Discharge home today at discretion of hospitalist team. -Continue IV Abx at home with at home nursing. -Visiting nurse to change dressing daily: Gently cleanse wound with NS moist gauze, Pat dry.?Apply skin prep barrier to alvaro-wound, lightly pack with Durafiber AG, (Spiral cut the sheet into one piece) be sure to leave a wick for easy removal.? Cover with dry gauze and ABD Pad dressing.?Off Load Pressure with Q2 hr turns and use of pillows when in bed. -Ambulate ad libitum when at home. -Follow up in clinic next week for evaluation. This was discussed with the attending neurosurgeon Dr. Bull who understands and agrees to this plan. Sumeet Bull MD,PhD [facility]
--- NOTE | 2025-04-17 16:08 | P.PICC_ITS ---
PICC Line Insertion NPICC Diagnosis: osteomyelitis Indication: snf abt Pertinent Labs: reviewed Technique: Following informed consent including risks, benefits and alternatives and using sterile technique including cap and mask, sterile gown, glove and drape, the right arm was prepped and draped in the usual sterile fashion of full barrier technique with CHG. Following completion of [place] Protocol the skin and soft tissues were anesthetized with 1% Lidocaine plain. Using ultrasound guidance, right cephalic vein access was obtained. Over an 0.018 wire through peel-away sheath, a 4fr single lumen PASV PICC line was positioned. Catheter length is 40cm internal length, 0cm external length, for a total trimmed length of 40cm. The procedure was performed in rm 272. Tip verification was performed by Ida Akbar with Giorgi 3CG. Tip located in SVC. Ultrasound was used to document vein patency and for needle entry. A formal ultrasound picture and cardiac rhythm strip was recorded. Vascular News Production Assistant has released the line for use and it is currently dressed with a StatLock, Tegaderm, and CHG disc. Verification has been performed for blood return and line patency. Arm Circumference: 37cm Equipment: [employer] SOLOcatheter with 3CG tip Catheter Type: 4FR single lumen PASV Lot #: [id number]
--- NOTE | 2025-04-17 17:25 | PC.NURSE ---
patient with numbness to alvaro area and left leg noted, reached out to spine PA and they are aware of this finding
[2025-04-17] MEDS: DAPTOmycin 600 MG in 0.9 % Sodium Chloride 50 ML 93.11 MG IV (18:07)
== END 2025-04-17 19:23 | disposition home health service (06) | DRG 862 ==
LOC: HO.ED 15:49 → HO.EDOVER 15:51 → HO.IMC 16:50
PROVIDERS: Internal Medicine; Internal Medicine Cardiovascular Disease; Nurse Practitioner Family; Physician Assistant Medical; Admitting Provider Student in an Organized Health Care Education/Training Program; Emergency Provider Emergency Medicine; PCP Physician Assistant; Visit Provider Internal Medicine
PROC: B24BZZ4 Ultrasonography of Heart with Aorta, Transesophageal (ICD-10-PCS; CPT 93312; principal; 2025-04-14 09:30)
DX: T81.42XA Infection following a procedure, deep incisional surgical site, initial encounter (principal); A41.02 Sepsis due to Methicillin resistant Staphylococcus aureus; R65.20 Severe sepsis without septic shock; E87.1 Hypo-osmolality and hyponatremia; Z68.41 Body mass index [BMI] 40.0-44.9, adult; F17.210 Nicotine dependence, cigarettes, uncomplicated; M60.9 Myositis, unspecified; Z71.6 Tobacco abuse counseling; E78.5 Hyperlipidemia, unspecified; I10 Essential (primary) hypertension; J44.9 Chronic obstructive pulmonary disease, unspecified; M10.9 Gout, unspecified; M46.46 Discitis, unspecified, lumbar region; E66.01 Morbid (severe) obesity due to excess calories; Z71.3 Dietary counseling and surveillance; Z79.899 Other long term (current) drug therapy
CPT/HCPCS: 36415; 36573; 72158; 80048; 80053; 80076; 80202; 82550; 82565; 83036; 83605; 85007; 85027; 85652; 86140; 87040; 87077; 87147; 87186; 87205; 93306; 93970; 97116; 97161; 97530; 99285; A9585; C1751; J0131; J0878; J1171; J1650; J2003; J2405; J2470; J2543; J2704; J3010; J3370; J7120; Q9957

== ENCOUNTER 2025-04-08 15:38 | Outpatient (BNV) | payer MEDICARE, MEDICAID, SELFPAY | END 2025-04-08 17:45 | PROVIDERS: Admitting Provider Student in an Organized Health Care Education/Training Program; Emergency Provider Emergency Medicine; PCP Physician Assistant; Visit Provider Radiology Neuroradiology | DX: G06.1 Intraspinal abscess and granuloma (principal) | CPT/HCPCS: 72158 ==

== ENCOUNTER 2025-04-08 15:38 | Outpatient (BNV) | payer MEDICARE, MEDICAID, SELFPAY | END 2025-04-11 07:00 | PROVIDERS: Admitting Provider Student in an Organized Health Care Education/Training Program; Emergency Provider Emergency Medicine; PCP Physician Assistant; Visit Provider Internal Medicine Cardiovascular Disease | DX: R78.81 Bacteremia (principal); B95.62 Methicillin resistant Staphylococcus aureus infection as the cause of diseases classified elsewhere | CPT/HCPCS: 93306 ==

== ENCOUNTER 2025-04-08 15:38 | Outpatient (BNV) | payer MEDICARE, MEDICAID, SELFPAY | END 2025-04-14 10:14 | PROVIDERS: Admitting Provider Student in an Organized Health Care Education/Training Program; Emergency Provider Emergency Medicine; PCP Physician Assistant; Visit Provider Internal Medicine Cardiovascular Disease | DX: I35.1 Nonrheumatic aortic (valve) insufficiency (principal); I70.0 Atherosclerosis of aorta; D17.4 Benign lipomatous neoplasm of intrathoracic organs | CPT/HCPCS: 76376; 93312; 93320; 93325 ==

== ENCOUNTER 2025-04-08 15:38 | Outpatient (BNV) | payer MEDICARE, MEDICAID, SELFPAY | END 2025-04-16 07:55 | PROVIDERS: Admitting Provider Student in an Organized Health Care Education/Training Program; Emergency Provider Emergency Medicine; PCP Physician Assistant; Visit Provider Radiology Diagnostic Radiology | DX: M79.661 Pain in right lower leg (principal); M79.662 Pain in left lower leg | CPT/HCPCS: 93970 ==

== ENCOUNTER → 2025-04-08 15:38 | Outpatient (BNV) | payer MEDICARE, MEDICAID, SELFPAY | PROVIDERS: Admitting Provider Student in an Organized Health Care Education/Training Program; Emergency Provider Emergency Medicine; PCP Physician Assistant; Visit Provider Student in an Organized Health Care Education/Training Program | DX: A41.9 Sepsis, unspecified organism (principal) | CPT/HCPCS: 99223 ==

== ENCOUNTER → 2025-04-08 15:38 | Outpatient (BNV) | payer MEDICARE, MEDICAID, SELFPAY | PROVIDERS: Admitting Provider Student in an Organized Health Care Education/Training Program; Emergency Provider Emergency Medicine; PCP Physician Assistant; Visit Provider Internal Medicine | DX: A41.02 Sepsis due to Methicillin resistant Staphylococcus aureus (principal) | CPT/HCPCS: 99232 ==

== ENCOUNTER → 2025-04-08 15:38 | Outpatient (BNV) | payer MEDICARE, MEDICAID, SELFPAY | PROVIDERS: Admitting Provider Student in an Organized Health Care Education/Training Program; Emergency Provider Emergency Medicine; PCP Physician Assistant; Visit Provider Physician Assistant | DX: Z48.89 Encounter for other specified surgical aftercare (principal) | CPT/HCPCS: 99024 ==

== ENCOUNTER → 2025-04-08 15:38 | Outpatient (BNV) | payer MEDICARE, MEDICAID, SELFPAY | PROVIDERS: Admitting Provider Student in an Organized Health Care Education/Training Program; Emergency Provider Emergency Medicine; PCP Physician Assistant; Visit Provider Internal Medicine Cardiovascular Disease | DX: A41.9 Sepsis, unspecified organism (principal) | CPT/HCPCS: 99233 ==

== ENCOUNTER 2025-04-24 10:55 | Outpatient (AMB) | payer MEDICARE, MEDICAID, SELFPAY ==
--- NOTE | 2025-04-24 10:21 | A.SPINEOV_ITS ---
Intake Visit Reasons: F/u after Hospitalization Intake Note: Mrs. 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: No Allergies gabapentin Allergy (Intermediate, Verified 04/08/25 13:14) Nausea and Vomiting morphine (Morphine) Allergy (Intermediate, Verified 04/08/25 13:14) VOMITING oxycodone (Percocet) Allergy (Intermediate, Verified 04/08/25 13:14) Vomiting methocarbamol Adverse Reaction (Intermediate, Verified 04/08/25 13:14) GI upset Assessment & Plan Assessment & Plan (1) Wound infection after surgery: Code(s): T81.49XA - Infection following a procedure, other surgical site, initial encounter Category: Medical Plan Procedure: right L3-4, L4-5 Laminotomy, Partial facetectomy and L5 foraminotomy Vickie is a 54-year-old female who underwent right L3-4, L4-5 Laminotomy, Partial facetectomy and L5 foraminotomy with incidental durotomy on 03/14/25. Her postoperative healing course was complicated by a wound infection. To recap she was evaluated in the emergency department by this sign writer hand on 04/08/2025. She presented due to increasing severe low back pain and general malaise. She was found to be septic, and admitted to the floor for IV antibiotics and monitoring. She spent about a week inpatient here at [facility], and repeat blood cultures eventually were aseptic. She had a PICC line placed and was discharged home on eight weeks daptomycin, to be completed 06/08/2025, with weekly labs including CPK and f/u with ID. Her has been assisting her with daily dressing changes packed with normal saline gauze. [facility] visiting nurse services have been coming to see her 3 x weekly and helping with medication administration and dressing changes. Her has been administering medication / performing dressing changes on the off days. They both raised several concerns regarding the antibiotics since discharge. They report that she has had copious green & white discharge from the wound since discharge from the hospital. She feels her general malaise and back pain has also worsened. She continues to report left thigh numbness and pain. She continues to report some right foot tingling as well. No new neurological deficits. The patient ambulates with the assistance of a 4 pronged cane. I removed her dressings which had notable white/green staining. I removed the saline gauze from the incision which was covered in copious amounts of white/green discharge. The wound itself had white & green discharge inside of it. I cleansed the wound area with iodine and packed it once more with saline gauze and a loosely approximated non adherent gauze pad. I again educated her on changing her bandages. I would like the patient to follow up with infectious disease to discuss current antibiotic regimen. The patient also requested this during this visit today. She is due to have labs drawn tomorrow. I will have our medical receptionist medical assistant Enriqueta reach out to the Infectious Disease office here at [facility] to inquire about scheduling a follow-up appointment. Vickie understands that if her condition worsens at all and she has return of chills / fever / worsening severe pain she should be evaluated again in the emergency department here at [facility]. Sumeet Bull MD,PhD [facility] Coding Level of Care Code Global (60487) Diagnoses Wound infection after surgery T81.49XA
== END 2025-04-24 11:41 | disposition home or self-care (01) ==
LOC: HO.HNS 10:56
PROVIDERS: PCP Physician Assistant; Visit Provider Physician Assistant
DX: T81.49XA Infection following a procedure, other surgical site, initial encounter (principal)
CPT/HCPCS: 99024

== ENCOUNTER → 2025-04-24 10:55 | Outpatient (BNVA) | payer MEDICARE, MEDICAID, SELFPAY | PROVIDERS: PCP Physician Assistant; Visit Provider Physician Assistant | DX: T81.49XD Infection following a procedure, other surgical site, subsequent encounter (principal); Z98.890 Other specified postprocedural states | CPT/HCPCS: 99212 ==

== ENCOUNTER 2025-04-25 13:06 | Outpatient (REF) | payer MEDICARE, MEDICAID, SELFPAY ==
[2025-04-25 13:08] LABS: MANUAL DIFF FLAG NO
[2025-04-25 13:27] LABS: Hematocrit 29.9 % (37.0-47.0); Hemoglobin 9.9 g/dl (12.0-16.0); Imm Gran Abs Auto 0.03 X10*3/uL (0.00-0.03); Imm Gran Pct Auto 0.3 % (0.0-0.4); Lymphocytes Absolute Auto 2.7 X10*3/uL (1.2-4.9); Mean Corpuscular HGB Conc 33.1 g/dl (31.0-35.0); Mean Corpuscular Hemoglobin 30.1 pg (27.0-33.0); Mean Corpuscular Volume 90.9 fL (80.0-98.0); NRBC Abs Auto 0.000 X10*3/uL (0.0-0.012); NRBC Pct Auto 0.0 /100WBC (0.0-0.2); Red Blood Count 3.29 X10*6/uL (4.20-5.50); White Blood Count 9.4 X10*3/uL (4.8-10.8)
[2025-04-25 13:58] LABS: Anion Gap 13 (12-20); Blood Urea Nitrogen 14 mg/dL (9-16); Calcium 10.3 mg/dL (8.4-10.2); Carbon Dioxide 24 mmol/L (22-29); Chloride 103 mmol/L (96-108); Estimated Glomerular Filt Rate > 60; Potassium 3.8 mmol/L (3.3-5.1); Sodium 136 mmol/L (135-145)
== END 2025-04-25 13:07 | disposition home or self-care (01) ==
LOC: HO.HVNA 13:06
PROVIDERS: Visit Provider Internal Medicine
DX: B99.9 Unspecified infectious disease (principal)
CPT/HCPCS: 36415; 80048; 82550; 85025

== ENCOUNTER 2025-05-01 12:46 | Outpatient (REF) | payer MEDICARE, MEDICAID, SELFPAY ==
[2025-05-01 13:02] LABS: Hematocrit 32.5 % (37.0-47.0); Hemoglobin 10.4 g/dl (12.0-16.0); Imm Gran Abs Auto 0.03 X10*3/uL (0.00-0.03); Imm Gran Pct Auto 0.3 % (0.0-0.4); Lymphocytes Absolute Auto 2.6 X10*3/uL (1.2-4.9); Mean Corpuscular HGB Conc 32.0 g/dl (31.0-35.0); Mean Corpuscular Hemoglobin 29.5 pg (27.0-33.0); Mean Corpuscular Volume 92.3 fL (80.0-98.0); NRBC Abs Auto 0.000 X10*3/uL (0.0-0.012); NRBC Pct Auto 0.0 /100WBC (0.0-0.2); Red Blood Count 3.52 X10*6/uL (4.20-5.50); White Blood Count 8.7 X10*3/uL (4.8-10.8)
[2025-05-01 13:25] LABS: MANUAL DIFF FLAG SCAN
[2025-05-01 13:53] LABS: Anion Gap 15 (12-20); Blood Urea Nitrogen 14 mg/dL (9-16); Calcium 9.8 mg/dL (8.4-10.2); Carbon Dioxide 23 mmol/L (22-29); Chloride 105 mmol/L (96-108); Estimated Glomerular Filt Rate > 60; Potassium 4.2 mmol/L (3.3-5.1); Sodium 139 mmol/L (135-145)
[2025-05-01 14:10] LABS: Platelet Count 402 X10*3/uL (160-400)
== END 2025-05-01 12:47 | disposition home or self-care (01) ==
LOC: HO.HVNA 12:46
PROVIDERS: Visit Provider Internal Medicine
DX: T81.49XA Infection following a procedure, other surgical site, initial encounter (principal)
CPT/HCPCS: 36415; 80048; 82550; 85025

== ENCOUNTER 2025-05-03 14:00 | Outpatient (AMB) | payer MEDICARE, MEDICAID, SELFPAY ==
--- NOTE | 2025-05-03 14:17 | HO.SPINEOV ---
Intake Visit Reasons: 10 day follow up Intake Note: Mrs. Carey is here today for a 10 day F/u. 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: No Allergies gabapentin Allergy (Intermediate, Verified 04/08/25 13:14) Nausea and Vomiting morphine (Morphine) Allergy (Intermediate, Verified 04/08/25 13:14) VOMITING oxycodone (Percocet) Allergy (Intermediate, Verified 04/08/25 13:14) Vomiting methocarbamol Adverse Reaction (Intermediate, Verified 04/08/25 13:14) GI upset Assessment & Plan Assessment & Plan (1) Wound infection after surgery: Code(s): T81.49XA - Infection following a procedure, other surgical site, initial encounter Category: Medical Plan Procedure: right L3-4, L4-5 Laminotomy, Partial facetectomy and L5 foraminotomy Vickie is a 54-year-old female who underwent right L3-4, L4-5 Laminotomy, Partial facetectomy and L5 foraminotomy with incidental durotomy on 03/14/25. Her postoperative healing course was complicated by a wound infection. See previous office notes for specifics regarding this issue. She reports that she continues to have fairly significant low back pain despite continued antibiotic therapy. She did hear back from our colleagues at infectious Disease, and they are scheduled to see her next week for follow-up. Her has been keeping up with daily dressing changes. No new neurological deficits. The patient ambulates with the assistance of a walker. I removed her dressings which had notable white/green staining. I removed the saline gauze from the incision which was covered in less white/green discharge overall than her last visit 10 days ago. I cleansed the wound area with iodine and packed it once more with saline gauze and a loosely approximated non adherent gauze pad. I again educated her on changing her bandages. Vickie continues to heal as expected. She should follow up with infectious disease next week and will be schedule to come in 2 weeks from now for another follow up visit. Sumeet Bull MD,PhD [facility] Coding Level of Care Code Global (93781) Diagnoses Wound infection after surgery T81.49XA
== END 2025-05-03 14:40 | disposition home or self-care (01) ==
LOC: HO.HNS 14:01
PROVIDERS: PCP Physician Assistant; Visit Provider Physician Assistant
DX: T81.49XA Infection following a procedure, other surgical site, initial encounter (principal)
CPT/HCPCS: 99024

== ENCOUNTER → 2025-05-03 14:00 | Outpatient (BNVA) | payer MEDICARE, MEDICAID, SELFPAY | PROVIDERS: PCP Physician Assistant; Visit Provider Physician Assistant | DX: T81.49XD Infection following a procedure, other surgical site, subsequent encounter (principal) | CPT/HCPCS: 99212 ==

== ENCOUNTER 2025-05-08 13:48 | Outpatient (REF) | payer MEDICARE, MEDICAID, SELFPAY ==
[2025-05-08 13:55] LABS: MANUAL DIFF FLAG NO
[2025-05-08 14:00] LABS: Imm Gran Abs Auto 0.02 X10*3/uL (0.00-0.03); Imm Gran Pct Auto 0.4 % (0.0-0.4); Lymphocytes Absolute Auto 1.1 X10*3/uL (1.2-4.9); Mean Corpuscular HGB Conc 30.4 g/dl (31.0-35.0); Mean Corpuscular Hemoglobin 29.1 pg (27.0-33.0); Mean Corpuscular Volume 96.0 fL (80.0-98.0); NRBC Abs Auto 0.000 X10*3/uL (0.0-0.012); NRBC Pct Auto 0.0 /100WBC (0.0-0.2); Platelet Count 172 X10*3/uL (160-400); Red Blood Count 1.75 X10*6/uL (4.20-5.50); White Blood Count 4.7 X10*3/uL (4.8-10.8)
[2025-05-08 14:19] LABS: Hemoglobin 5.1 g/dl (12.0-16.0)
[2025-05-08 14:38] LABS: Anion Gap 12 (12-20); Blood Urea Nitrogen 13 mg/dL (9-16); Calcium 9.5 mg/dL (8.4-10.2); Carbon Dioxide 24 mmol/L (22-29); Chloride 107 mmol/L (96-108); Estimated Glomerular Filt Rate > 60; Potassium 4.0 mmol/L (3.3-5.1); Sodium 139 mmol/L (135-145)
[2025-05-08 17:31] LABS: Hematocrit 16.8 % (37.0-47.0)
== END 2025-05-08 13:49 | disposition home or self-care (01) ==
LOC: HO.HVNA 13:48
PROVIDERS: Visit Provider Internal Medicine
DX: T81.49XA Infection following a procedure, other surgical site, initial encounter (principal)
CPT/HCPCS: 36415; 80048; 82550; 85025

== ENCOUNTER 2025-05-10 09:58 | Outpatient (REF) | payer MEDICARE, MEDICAID, SELFPAY ==
[2025-05-10 10:40] LABS: MANUAL DIFF FLAG NO
[2025-05-10 10:58] LABS: Imm Gran Abs Auto 0.02 X10*3/uL (0.00-0.03); Imm Gran Pct Auto 0.3 % (0.0-0.4); Lymphocytes Absolute Auto 2.6 X10*3/uL (1.2-4.9); Mean Corpuscular HGB Conc 32.6 g/dl (31.0-35.0); Mean Corpuscular Hemoglobin 29.7 pg (27.0-33.0); Mean Corpuscular Volume 91.0 fL (80.0-98.0); NRBC Abs Auto 0.000 X10*3/uL (0.0-0.012); NRBC Pct Auto 0.0 /100WBC (0.0-0.2); Platelet Count 366 X10*3/uL (160-400); Red Blood Count 3.57 X10*6/uL (4.20-5.50); White Blood Count 7.5 X10*3/uL (4.8-10.8)
[2025-05-10 11:06] LABS: Estimated Glomerular Filt Rate > 60
[2025-05-10 11:31] LABS: Hematocrit 32.5 % (37.0-47.0); Hemoglobin 10.6 g/dl (12.0-16.0)
== END 2025-05-10 09:59 | disposition home or self-care (01) ==
LOC: HO.HVNA 09:58
PROVIDERS: Visit Provider Internal Medicine
DX: T81.49XA Infection following a procedure, other surgical site, initial encounter (principal); X58.XXXA Exposure to other specified factors, initial encounter
CPT/HCPCS: 36415; 82565; 85025

== ENCOUNTER 2025-05-12 14:58 | Outpatient (AMB) | payer MEDICARE, MEDICAID, SELFPAY ==
--- NOTE | 2025-05-12 15:00 | MHC.OFFVIS ---
Vital Signs 05/12/25 15:06 Weight 202 lb BP 122/76 Pulse 100 Pulse Oximetry (%) 97 Intake Visit Reasons: [facility] reff/MRSA sepsis Allergies gabapentin Allergy (Intermediate, Verified 05/12/25 15:07) Nausea and Vomiting morphine (Morphine) Allergy (Intermediate, Verified 05/12/25 15:07) VOMITING oxycodone (Percocet) Allergy (Intermediate, Verified 05/12/25 15:07) Vomiting methocarbamol Adverse Reaction (Intermediate, Verified 05/12/25 15:07) GI upset HPI HPI [facility] reff/MRSA sepsis: Details: I am seeing her in followup for MRSA bacteremia and wound infection back. I had seen her in hospital. She is on Daptomycin week 01/17 (due to end June 08) and is tolerating it well. She had one CBC that showed acute anemia but next day it was back to rd so this likely was error in processing. She is seeing [facility]surgery next week. [facility] Medical History Anemia Anxiety MDD (major depressive disorder) Gout GERD (gastroesophageal reflux disease) Ambulates with cane Smoker Hyperuricemia Asthma Obese Osteoarthritis Trigger finger Carpal tunnel syndrome Hyperlipidemia LDL goal <100 Essential hypertension Hyperlipidemia Cellulitis, umbilical Surgical History History of esophagogastroduodenoscopy (EGD) Hx of colonoscopy History of laparoscopic appendectomy History of foot surgery History of carpal tunnel release H/O: hysterectomy Family History Father Diabetes Hypertension Stroke Heart attack, Onset Age: 50 Mother Multiple sclerosis Brother In good health Son In good health Son In good health Other Patient denies medical problems Social History Household Members: Spouse and Children Housing: Apartment Are you a primary respiratory care technician to a significant other at home: No Do you presently have visiting nurse or other home services: No Alcohol intake: current Alcohol intake frequency: holidays/special occasions only Alcohol type: beer Patient Tobacco Use Status: Current everyday Tobacco user Tobacco use type: Cigarette Cigarette Packs Per Day: 0.5 Cigarettes Per Day: 10.0 Years Smoked: 46 e-Cigarette/Vaping Use: Never Used Second Hand Smoke Exposure: Yes service: No Current occupational status: disabled Cognitive needs: No Hearing needs: No Vision needs: Yes (glasses) Review of Systems Const All systems reviewed & are unremarkable except as noted in HPI and below Physical Exam Vital Signs: Last Vital Signs Pulse 100 05/12/25 15:06 BP 122/76 05/12/25 15:06 Pulse Ox 97 05/12/25 15:06 Const Other: General: cooperative Orientation/consciousness: patient oriented x3 HEENT Head: Yes normal to inspection Mouth: Normal oral and palatal mucosa present Eyes General: appearance normal, both eyes and all related structures Pupils: Equal, round and reactive pupils present Resp Effort & Inspection: normal respiratory effort Cardio Rate: regular rate Rhythm: regular rhythm GI Palpation (GI): Soft to palpation and nontender General: Yes no CVA tenderness Back/Spine/Pelvis Back: no CVA tenderness Skin General skin exam: no rashes or lesions noted Neuro General: patient oriented x3 Cranial nerves: Yes CN's II-XII intact bilaterally and Yes Equal, round and reactive pupils present Extrem General: Yes normal to inspection Psych Appearance: grossly normal Assessment & Plan Assessment & Plan (1) Wound infection after surgery: Comment: She feels well Code(s): T81.49XA - Infection following a procedure, other surgical site, initial encounter Category: Medical Plan: Continue Daptomycin for MRSA bacteremia and wound. See in three weeks just before Daptomycin stopped. Coding Level of Care Code Est Pt Level 3 (53490) Diagnoses Wound infection after surgery T81.49XA
[2025-05-12 15:06] VITALS: BP 122/76; PULSE 100; O2SAT 97
== END 2025-05-12 15:58 | disposition home or self-care (01) ==
LOC: HO.HID 14:58
PROVIDERS: PCP Physician Assistant; Visit Provider Internal Medicine
DX: T81.49XA Infection following a procedure, other surgical site, initial encounter (principal)
CPT/HCPCS: 99213

== ENCOUNTER → 2025-05-12 14:58 | Outpatient (BNVA) | payer MEDICARE, MEDICAID, SELFPAY | PROVIDERS: PCP Physician Assistant; Visit Provider Internal Medicine | DX: T81.49XA Infection following a procedure, other surgical site, initial encounter (principal); Z79.2 Long term (current) use of antibiotics | CPT/HCPCS: 99212 ==

== ENCOUNTER 2025-05-17 13:45 | Outpatient (AMB) | payer MEDICARE, MEDICAID, SELFPAY ==
--- NOTE | 2025-05-17 14:16 | A.SPINEOV_ITS ---
Intake Visit Reasons: 2nd post op Intake Note: Mrs. Carey is here today for her 2nd Post-op visit. Allergies gabapentin Allergy (Intermediate, Verified 05/12/25 15:07) Nausea and Vomiting morphine (Morphine) Allergy (Intermediate, Verified 05/12/25 15:07) VOMITING oxycodone (Percocet) Allergy (Intermediate, Verified 05/12/25 15:07) Vomiting methocarbamol Adverse Reaction (Intermediate, Verified 05/12/25 15:07) GI upset Assessment & Plan Assessment & Plan (1) Wound infection after surgery: Comment: She feels well Code(s): T81.49XA - Infection following a procedure, other surgical site, initial encounter Category: Medical Plan Vickie comes in today for a subsequent wound check, we have been checking her wound healing progress ever since she had in infection occur after her simple lumbar decompression procedure. See previous office visit notes for specifics regarding this. Today she reports that she continues to have low back/abdominal pain, but it seems to be getting better as time progresses. She recently had a follow up with our infectious disease doctor who will be keeping her on daptomycin until the end of the month, then hopefully transitioning her to oral antibiotics. Her accompanies her to this visit reports that he has been doing daily wound dressing changes for her with the assistance of a visiting nurse. I removed her bandages during this visit and changed her dressing. I cleanse the wound with iodine and packed it with iodoform. The incision seems to be getting smaller, and it is healing up toward the skin surface now. No notable erythema/fluctuance around wound edges. There was still a considerable amount of purulence on the dressings that I removed. I would like to follow up with Vickie again in 2 weeks for another office visit to evaluate for healing progress. Sumeet Bull MD,PhD [facility] Coding Level of Care Code Global (63509) Diagnoses Wound infection after surgery T81.49XA
== END 2025-05-17 14:40 | disposition home or self-care (01) ==
LOC: HO.HNS 13:46
PROVIDERS: PCP Physician Assistant; Visit Provider Physician Assistant
DX: T81.49XA Infection following a procedure, other surgical site, initial encounter (principal)
CPT/HCPCS: 99024

== ENCOUNTER → 2025-05-17 13:45 | Outpatient (BNVA) | payer MEDICARE, MEDICAID, SELFPAY | PROVIDERS: PCP Physician Assistant; Visit Provider Physician Assistant | DX: T81.49XD Infection following a procedure, other surgical site, subsequent encounter (principal) | CPT/HCPCS: 99212 ==

== ENCOUNTER 2025-05-18 12:48 | Outpatient (REF) | payer MEDICARE, MEDICAID, SELFPAY ==
[2025-05-18 12:53] LABS: MANUAL DIFF FLAG NO
[2025-05-18 13:04] LABS: Hematocrit 33.2 % (37.0-47.0); Hemoglobin 10.5 g/dl (12.0-16.0); Imm Gran Abs Auto 0.03 X10*3/uL (0.00-0.03); Imm Gran Pct Auto 0.3 % (0.0-0.4); Lymphocytes Absolute Auto 1.9 X10*3/uL (1.2-4.9); Mean Corpuscular HGB Conc 31.6 g/dl (31.0-35.0); Mean Corpuscular Hemoglobin 28.8 pg (27.0-33.0); Mean Corpuscular Volume 91.2 fL (80.0-98.0); NRBC Abs Auto 0.000 X10*3/uL (0.0-0.012); NRBC Pct Auto 0.0 /100WBC (0.0-0.2); Platelet Count 453 X10*3/uL (160-400); Red Blood Count 3.64 X10*6/uL (4.20-5.50); White Blood Count 8.7 X10*3/uL (4.8-10.8)
[2025-05-18 13:53] LABS: Anion Gap 13 (12-20); Blood Urea Nitrogen 11 mg/dL (9-16); Calcium 10.1 mg/dL (8.4-10.2); Carbon Dioxide 25 mmol/L (22-29); Chloride 103 mmol/L (96-108); Estimated Glomerular Filt Rate > 60; Potassium 3.4 mmol/L (3.3-5.1); Sodium 138 mmol/L (135-145)
== END 2025-05-18 12:49 | disposition home or self-care (01) ==
LOC: HO.HVNA 12:48
PROVIDERS: Visit Provider Internal Medicine
DX: T81.49XA Infection following a procedure, other surgical site, initial encounter (principal)
CPT/HCPCS: 36415; 80048; 82550; 85025

== ENCOUNTER 2025-05-25 13:02 | Outpatient (REF) | payer MEDICARE, MEDICAID, SELFPAY ==
[2025-05-25 13:05] LABS: MANUAL DIFF FLAG NO
[2025-05-25 13:07] LABS: Hematocrit 33.0 % (37.0-47.0); Hemoglobin 10.7 g/dl (12.0-16.0); Imm Gran Abs Auto 0.03 X10*3/uL (0.00-0.03); Imm Gran Pct Auto 0.4 % (0.0-0.4); Lymphocytes Absolute Auto 2.2 X10*3/uL (1.2-4.9); Mean Corpuscular HGB Conc 32.4 g/dl (31.0-35.0); Mean Corpuscular Hemoglobin 28.9 pg (27.0-33.0); Mean Corpuscular Volume 89.2 fL (80.0-98.0); NRBC Abs Auto 0.000 X10*3/uL (0.0-0.012); NRBC Pct Auto 0.0 /100WBC (0.0-0.2); Platelet Count 440 X10*3/uL (160-400); Red Blood Count 3.70 X10*6/uL (4.20-5.50); White Blood Count 7.7 X10*3/uL (4.8-10.8)
[2025-05-25 13:51] LABS: Anion Gap 14 (12-20); Blood Urea Nitrogen 10 mg/dL (9-16); Calcium 10.4 mg/dL (8.4-10.2); Carbon Dioxide 26 mmol/L (22-29); Chloride 104 mmol/L (96-108); Estimated Glomerular Filt Rate > 60; Potassium 3.5 mmol/L (3.3-5.1); Sodium 140 mmol/L (135-145)
== END 2025-05-25 13:03 | disposition home or self-care (01) ==
LOC: HO.HVNA 13:02
PROVIDERS: Visit Provider Internal Medicine
DX: T81.49XA Infection following a procedure, other surgical site, initial encounter (principal)
CPT/HCPCS: 36415; 80048; 82550; 85025

== ENCOUNTER 2025-05-31 14:49 | Outpatient (AMB) | payer MEDICARE, MEDICAID, SELFPAY ==
--- NOTE | 2025-05-31 14:53 | HO.SPINEOV ---
Intake Visit Reasons: 2 week f/u Intake Note: Mrs. Carey is here today for her 2 week F/u. 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: No Allergies gabapentin Allergy (Intermediate, Verified 05/31/25 14:53) Nausea and Vomiting morphine (Morphine) Allergy (Intermediate, Verified 05/31/25 14:53) VOMITING oxycodone (Percocet) Allergy (Intermediate, Verified 05/31/25 14:53) Vomiting methocarbamol Adverse Reaction (Intermediate, Verified 05/31/25 14:53) GI upset Assessment & Plan Assessment & Plan (1) Wound infection after surgery: Comment: She feels well Code(s): T81.49XA - Infection following a procedure, other surgical site, initial encounter Category: Medical Plan Vickie is a pleasant 54-year-old female comes in today for a subsequent follow-up visit. We have been seeing her bi-monthly for routine wound checks and evaluation of infection in his solution. See previous office visit notes for specifics regarding this issue. The patient continues to report a very similar baseline low back pain and bilateral inguinal pain, worse in the right-hand side as she has been reporting in previous sessions. In terms of her constitutional symptoms, they have largely resolved. She feels her wound has continually made progress toward shrinking in size, in his producing less purulent fluid as the days progress. I removed her posterior bandage during this office encounter, and cleansed the wound site with Iodine, before re-packing the wound and covering with non-adherent guaze. She continues to ambulae with the assistance of a walker. She is otherwise well appearing. I would like to follow up with Vickie again in 2 weeks for subsequent evaluation. By that time she will have seen Dr. Ansari for f/u regarding transition to PO medication. Sumeet Bull MD,PhD [facility] Coding Level of Care Code Global (25397) Diagnoses Wound infection after surgery T81.49XA
== END 2025-05-31 15:22 | disposition home or self-care (01) ==
LOC: HO.HNS 14:50
PROVIDERS: PCP Physician Assistant; Visit Provider Physician Assistant
DX: T81.49XA Infection following a procedure, other surgical site, initial encounter (principal)
CPT/HCPCS: 99024

== ENCOUNTER → 2025-05-31 14:49 | Outpatient (BNVA) | payer MEDICARE, MEDICAID, SELFPAY | PROVIDERS: PCP Physician Assistant; Visit Provider Physician Assistant | DX: T81.49XD Infection following a procedure, other surgical site, subsequent encounter (principal) | CPT/HCPCS: 99212 ==

== ENCOUNTER 2025-06-01 13:37 | Outpatient (REF) | payer MEDICARE, MEDICAID, SELFPAY ==
[2025-06-01 13:41] LABS: MANUAL DIFF FLAG NO
[2025-06-01 13:45] LABS: Hematocrit 32.6 % (37.0-47.0); Hemoglobin 10.3 g/dl (12.0-16.0); Imm Gran Abs Auto 0.03 X10*3/uL (0.00-0.03); Imm Gran Pct Auto 0.3 % (0.0-0.4); Lymphocytes Absolute Auto 1.9 X10*3/uL (1.2-4.9); Mean Corpuscular HGB Conc 31.6 g/dl (31.0-35.0); Mean Corpuscular Hemoglobin 28.5 pg (27.0-33.0); Mean Corpuscular Volume 90.1 fL (80.0-98.0); NRBC Abs Auto 0.000 X10*3/uL (0.0-0.012); NRBC Pct Auto 0.0 /100WBC (0.0-0.2); Platelet Count 419 X10*3/uL (160-400); Red Blood Count 3.62 X10*6/uL (4.20-5.50); White Blood Count 9.5 X10*3/uL (4.8-10.8)
[2025-06-01 14:00] LABS: Anion Gap 13 (12-20); Blood Urea Nitrogen 15 mg/dL (9-16); Calcium 10.0 mg/dL (8.4-10.2); Carbon Dioxide 25 mmol/L (22-29); Chloride 105 mmol/L (96-108); Estimated Glomerular Filt Rate > 60; Potassium 3.6 mmol/L (3.3-5.1); Sodium 139 mmol/L (135-145)
== END 2025-06-01 13:38 | disposition home or self-care (01) ==
LOC: HO.HVNA 13:37
PROVIDERS: Visit Provider Internal Medicine
DX: T81.49XA Infection following a procedure, other surgical site, initial encounter (principal); D64.9 Anemia, unspecified
CPT/HCPCS: 36415; 80048; 82550; 85025

== ENCOUNTER 2025-06-02 11:20 | Outpatient (AMB) | payer MEDICARE, MEDICAID, SELFPAY ==
--- NOTE | 2025-06-02 11:25 | A.OFFVIS_ITS ---
Vital Signs 3 06/02/25 11:26 Height 5 ft 3 in Weight 202 lb BMI 35.8 BP 116/70 Pulse 96 Pulse Oximetry (%) 96 Intake Visit Reasons: [facility] reff/MRSA sepsis Allergies gabapentin Allergy (Intermediate, Verified 06/02/25 11:27) Nausea and Vomiting morphine (Morphine) Allergy (Intermediate, Verified 06/02/25 11:27) VOMITING oxycodone (Percocet) Allergy (Intermediate, Verified 06/02/25 11:27) Vomiting methocarbamol Adverse Reaction (Intermediate, Verified 06/02/25 11:27) GI upset HPI HPI [facility] reff/MRSA sepsis: Details: She feels well and has no fever or chills. [facility] Medical History Anemia Anxiety MDD (major depressive disorder) Gout GERD (gastroesophageal reflux disease) Ambulates with cane Smoker Hyperuricemia Asthma Obese Osteoarthritis Trigger finger Carpal tunnel syndrome Hyperlipidemia LDL goal <100 Essential hypertension Hyperlipidemia Cellulitis, umbilical Surgical History History of esophagogastroduodenoscopy (EGD) Hx of colonoscopy History of laparoscopic appendectomy History of foot surgery History of carpal tunnel release H/O: hysterectomy Family History Father Diabetes Hypertension Stroke Heart attack, Onset Age: 50 Mother Multiple sclerosis Brother In good health Son In good health Son In good health Other Patient denies medical problems Social History Household Members: Spouse and Children Housing: Apartment Are you a primary child care lead teacher to a significant other at home: No Do you presently have visiting nurse or other home services: No Alcohol intake: current Alcohol intake frequency: holidays/special occasions only Alcohol type: beer Patient Tobacco Use Status: Current everyday Tobacco user Tobacco use type: Cigarette Cigarette Packs Per Day: 0.5 Cigarettes Per Day: 10.0 Years Smoked: 46 e-Cigarette/Vaping Use: Never Used Second Hand Smoke Exposure: Yes service: No Current occupational status: disabled Cognitive needs: No Hearing needs: No Vision needs: Yes (glasses) Review of Systems Const All systems reviewed & are unremarkable except as noted in HPI and below Physical Exam Vital Signs: Last Vital Signs Pulse 96 06/02/25 11:26 BP 116/70 06/02/25 11:26 Pulse Ox 96 06/02/25 11:26 BMI result Body Mass Index 35.8 Const Other: General: cooperative Orientation/consciousness: patient oriented x3 HEENT Head: Yes normal to inspection Mouth: Normal oral and palatal mucosa present Eyes General: appearance normal, both eyes and all related structures Pupils: Equal, round and reactive pupils present Resp Effort & Inspection: normal respiratory effort Cardio Rate: regular rate Rhythm: regular rhythm GI Palpation (GI): Soft to palpation and nontender General: Yes no CVA tenderness Back/Spine/Pelvis Back: no CVA tenderness Skin General skin exam: no rashes or lesions noted Neuro General: patient oriented x3 Cranial nerves: Yes CN's II-XII intact bilaterally and Yes Equal, round and reactive pupils present Extrem General: Yes normal to inspection Psych Appearance: grossly normal Assessment & Plan Assessment & Plan (1) Wound infection after surgery: Comment: She feels well Code(s): T81.49XA - Infection following a procedure, other surgical site, initial encounter Category: Medical Plan: Would switch to po Bactrim. Follow with Neurosurgery. See if needed. Orders: Orders 2 IR cvc remove any age 0806/02/25 T81.49XA - Infection following a procedure, other surgical site, initial encounter Medications: New 2 sulfamethoxazole-trimethoprim 800-160 mg (Bactrim DS) 1 tab PO BID 28 tabs 0RF 14 days Coding Level of Care Code Est Pt Level 3 (56136) Diagnoses Wound infection after surgery T81.49XA
[2025-06-02 11:26] VITALS: BP 116/70; PULSE 96; O2SAT 96; BMI 35.8
== END 2025-06-02 11:40 | disposition home or self-care (01) ==
LOC: HO.HID 11:20
PROVIDERS: PCP Physician Assistant; Visit Provider Internal Medicine
DX: T81.49XA Infection following a procedure, other surgical site, initial encounter (principal)
CPT/HCPCS: 99213

== ENCOUNTER → 2025-06-02 11:20 | Outpatient (BNVA) | payer MEDICARE, MEDICAID, SELFPAY | PROVIDERS: PCP Physician Assistant; Visit Provider Internal Medicine | DX: T81.49XA Infection following a procedure, other surgical site, initial encounter (principal) | CPT/HCPCS: 99212 ==

== ENCOUNTER 2025-06-05 13:36 | Outpatient (REF) | payer MEDICARE, MEDICAID, SELFPAY ==
[2025-06-05 13:47] LABS: Hematocrit 25.5 % (37.0-47.0); Hemoglobin 8.1 g/dl (12.0-16.0); Imm Gran Abs Auto 0.01 X10*3/uL (0.00-0.03); Imm Gran Pct Auto 0.3 % (0.0-0.4); Lymphocytes Absolute Auto 1.1 X10*3/uL (1.2-4.9); MANUAL DIFF FLAG SCAN; Mean Corpuscular HGB Conc 31.8 g/dl (31.0-35.0); Mean Corpuscular Hemoglobin 28.8 pg (27.0-33.0); Mean Corpuscular Volume 90.7 fL (80.0-98.0); NRBC Abs Auto 0.000 X10*3/uL (0.0-0.012); NRBC Pct Auto 0.0 /100WBC (0.0-0.2); PLT CLUMP 1; Red Blood Count 2.81 X10*6/uL (4.20-5.50); SCAN SMEAR FLAG 1
[2025-06-05 14:50] LABS: Anion Gap 14 (12-20); Blood Urea Nitrogen 12 mg/dL (9-16); Calcium 9.9 mg/dL (8.4-10.2); Carbon Dioxide 24 mmol/L (22-29); Chloride 104 mmol/L (96-108); Estimated Glomerular Filt Rate > 60; Potassium 3.3 mmol/L (3.3-5.1); Sodium 139 mmol/L (135-145)
[2025-06-05 14:56] LABS: White Blood Count 3.7 X10*3/uL (4.8-10.8)
== END 2025-06-05 13:37 | disposition home or self-care (01) ==
LOC: HO.HVNA 13:36
PROVIDERS: Visit Provider Internal Medicine
DX: T81.49XA Infection following a procedure, other surgical site, initial encounter (principal); A41.02 Sepsis due to Methicillin resistant Staphylococcus aureus
CPT/HCPCS: 36415; 80048; 82550; 85025

== ENCOUNTER 2025-06-14 15:13 | Inpatient (IN) | payer MEDICARE, MEDICAID, SELFPAY ==
[2025-06-14] VITALS (11 sets, daily range): BP systolic 96–148; BP diastolic 52–82; PULSE 77–145; RESP 16–19; TEMP 36.6–37.1; O2SAT 93–98; BMI 35.8
--- NOTE | ~2025-06-14 | CT_ITS ---
EXAMINATION: CT ABDOMEN PELVIS WITH IV CONTRAST HISTORY: recheck psoas abscess COMPARISON: Comparison is made with the prior examination dated 07/16/2020. Correlation is also made with an MRI of the lumbar spine without and with contrast dated 06/14/2025. TECHNIQUE: CT scan of the abdomen and pelvis was performed following administration of 85 mL Omnipaque 350 using standard departmental protocol. Coronal and sagittal reformatted images were generated and reviewed. Oral contrast material was not administered at the request of the referring physician. This CT exam was performed with one or more of the following dose reduction techniques: automated exposure control, adjustment of the mA and/or kV according to patient size, use of iterative reconstruction technique. DLP: mGy-cm FINDINGS: LOWER CHEST: The visualized lung bases are clear. There is no pleural effusion. CARDIOVASCULATURE: The heart is normal in size. There is no pericardial effusion. LIVER: The liver is normal in size and contour. No liver mass is identified. The hepatic and portal veins are patent. GALLBLADDER / BILE DUCTS: The gallbladder is unremarkable. There is no intra or extrahepatic biliary ductal dilatation. SPLEEN: The spleen is normal in size. No focal splenic lesion is identified. PANCREAS: The pancreas is unremarkable in appearance. ADRENAL GLANDS: Within normal limits. KIDNEYS/RETROPERITONEUM: The kidneys demonstrate lobulated borders. No renal calculi are identified. There is no hydronephrosis. No renal masses are identified. LYMPH NODES: There are multiple para-aortic lymph nodes measuring up to 1.8 cm in size. VASCULATURE: The abdominal aorta demonstrates atherosclerotic calcification, but is normal in caliber. MESENTERY/PERITONEUM: No free fluid. No masses. There is no free intraperitoneal gas. STOMACH: The stomach is collapsed, limiting evaluation. SMALL BOWEL: The small bowel is normal in caliber. COLON: There is a moderate to large amount of stool throughout the colon. APPENDIX: The appendix is not seen, however no inflammatory changes are seen adjacent to the cecum. URINARY BLADDER/PELVIC ORGANS: The urinary bladder extends below the level of the pubic symphysis consistent with pelvic floor relaxation. The uterus is unremarkable. BONES / SOFT TISSUES: Evaluation of the bones demonstrates endplate irregularity at the L1-2, L2-3, and L3-4 levels with irregular destruction of the L2 vertebral body and abnormal sclerosis of the L3 vertebral body. These findings are consistent with vertebral discitis and osteomyelitis as seen on MRI. A rind of inflammatory soft tissue is seen anterior and lateral to the spine in this region. Evaluation of the intradural contents is limited on CT and was better evaluated on MRI. There is a probable fluid collection with peripheral calcification in the left psoas muscle measuring approximately 4.1 x 0.7 x 0.8 cm, as noted on MRI although comparison is difficult due to differences in soft tissue contrast between the [address]/CT abdomen pelvis w IV con IMPRESSION: 1. Findings consistent with vertebral discitis and osteomyelitis from L1 through L4 as described, with associated paraspinal inflammatory soft tissue and lymphadenopathy, as seen on MRI. 2. Probable left psoas abscess as described. Electronically signed by: Eduard Segura MD 06/20/2025 01:57 PM EDT
--- NOTE | ~2025-06-14 | XR_ITS ---
EXAMINATION: XR KNEE 3 VIEWS LEFT HISTORY: pain COMPARISON: There are no prior studies available for comparison. FINDINGS: Four views of the left knee are submitted. Osseous mineralization is normal. There is no fracture or dislocation. The joint spaces are preserved. The soft tissues are unremarkable. There is no joint effusion. XR/XR knee LT 3V IMPRESSION: Unremarkable examination of the left knee. Electronically signed by: Eduard Segura MD 06/19/2025 07:59 AM EDT
--- NOTE | ~2025-06-14 | MR_ITS ---
CLINICAL HISTORY: back pain, hx of laminectomy in March complicated by sepsis MR lumbar spine with and without gadolinium Comparison: MR - MR LUMBAR SPINE WO/W CON - 04/08/25 17:17 EDT Findings: Alignment of the lumbar spine is preserved. There is diffusely abnormal marrow signal in the inferior aspect of L1 and throughout the L2 and L3 vertebral bodies. Marrow signal is T1 hypointense and slightly T2 hypointense but intensely hyperintense on STIR. There is diffuse marked abnormal enhancement throughout this area on postcontrast imaging. There is new destruction of the anterior L2 vertebral body as well as the superior endplate of L3. There is increased T2 signal within both the L1-2 and L2-3 discs with some abnormal disc enhancement present. There is also mild enhancement of the superior endplate of L4 and the disc at L3-4. There is a large area of enhancing phlegmon around the vertebral bodies at these levels as well as extending into the paraspinal musculature posteriorly, predominantly at the L3-4 level. There is a heterogeneous collection within the left iliopsoas muscle seen extending from L4 into the pelvis concerning for iliopsoas abscess. This abscess measures up to 2.8 x 1.7 cm in axial dimensions. Suspect small abscess in the posterior left paraspinal back musculature, 1.3 x 1.0 cm, series 9, image 27. There has been a previous posterior decompression at L5 and L4. There is a subcutaneous rim enhancing fluid collection at the L4 level posteriorly measuring 2.4 x 1.4 x 2.4 cm this collection appears smaller in comparison to prior. Multifocal advanced degenerative changes of the lumbar spine with multilevel focal spinal stenosis, similar in comparison to prior. Spinal stenosis is most severe at L2-3, L3-4 and L4-5. IMPRESSION: 1. Findings highly concerning for discitis osteomyelitis extending from L1 to the superior endplate of L4. 2. Left iliopsoas abscess. Posterior left paraspinal back musculature small abscess. 3. Subcutaneous fluid collection in the midline back measuring 2.4 x 1.4 x 2.4 which may be seroma or abscess. This document has been electronically signed by: Harley Diana MD on 06/14/2025 20:26:05
[2025-06-14 16:12] LABS: MANUAL DIFF FLAG NO
[2025-06-14 16:13] LABS: Hematocrit 32.8 % (37.0-47.0); Hemoglobin 10.7 g/dl (12.0-16.0); Imm Gran Abs Auto 0.05 X10*3/uL (0.00-0.03); Imm Gran Pct Auto 0.3 % (0.0-0.4); Lymphocytes Absolute Auto 2.5 X10*3/uL (1.2-4.9); Mean Corpuscular HGB Conc 32.6 g/dl (31.0-35.0); Mean Corpuscular Hemoglobin 27.3 pg (27.0-33.0); Mean Corpuscular Volume 83.7 fL (80.0-98.0); NRBC Abs Auto 0.000 X10*3/uL (0.0-0.012); NRBC Pct Auto 0.0 /100WBC (0.0-0.2); Platelet Count 482 X10*3/uL (160-400); Red Blood Count 3.92 X10*6/uL (4.20-5.50); White Blood Count 15.1 X10*3/uL (4.8-10.8)
[2025-06-14 16:29] LABS: Alanine Aminotransferase 11 U/L (0-31); Albumin Level 3.7 g/dL (3.5-5.0); Alkaline Phosphatase 101 U/L (39-117); Anion Gap 16 (12-20); Aspartate Amino Transferase 26 U/L (5-31); Blood Urea Nitrogen 15 mg/dL (9-16); Calcium 11.3 mg/dL (8.4-10.2); Carbon Dioxide 23 mmol/L (22-29); Chloride 103 mmol/L (96-108); Creatinine Clr Calc Pharmacy 75.1; Estimated Glomerular Filt Rate > 60; Potassium 3.9 mmol/L (3.3-5.1); Sodium 138 mmol/L (135-145); Total Protein 8.6 g/dL (6.5-8.0)
--- NOTE | 2025-06-14 17:15 | PC.NURSE ---
patient noted to be satting 87% on room air, patient states she is a smoker but not diagnosed with COPD. patient placed on 2lNC sat recovered to 92%
--- NOTE | 2025-06-14 17:15 | ED.BACK ---
HPI - Back Pain/Injury General Chief Complaint: Back Pain/Injury Stated Complaint: Back pain since surgery april 13 Time Seen by Provider: 06/14/25 16:05 History of Present Illness HPI Narrative: Patient is a 54-year-old female with a history of back surgery. Patient had surgery with Dr. Stern is on March 14. Had laminectomy done. Subsequently complicated by having infection requiring IV antibiotics hospitalization. Patient was last seen by infectious disease on June 02 was started on 2 week course of Bactrim. Continued to have back pain patient claims her back pain has been ongoing for the last month. There is no bowel urinary incontinence. There is no fever. The pain has gotten so bad that she can not function. Although she had an appointment with her spine surgeon at 15:00 she elected to come to the ED. I actually saw her at 16:30. She was complaining of pain radiating down the left side. There is no bowel urinary incontinence is no focal weakness. Patient from home. Been compliant with her medication she had had Dilaudid in the past this has worked for her. Related Data Home Medications ?Medication ?Instructions ?Recorded ?Confirmed multivitamin 1 tab PO DAILY 07/31/22 04/08/25 omega-3 fatty acids 500 mg capsule 500 mg PO DAILY 03/01/25 04/08/25 baclofen 10 mg tablet 10 mg PO DAILY 04/08/25 04/08/25 Previous Rx's ?Medication ?Instructions ?Recorded diclofenac sodium 75 mg 75 mg PO BID 90 days #180 tabs 03/22/24 tablet,delayed release magnesium oxide 250 mg PO DAILY 90 days #90 tabs 08/04/24 allopurinol 100 mg tablet 100 mg PO DAILY #30 tabs 09/21/24 losartan 50 mg tablet 50 mg PO DAILY #90 tabs 10/15/24 montelukast 10 mg tablet 10 mg PO DAILY 90 days #90 tabs 01/18/25 ergotamine 1 mg-caffeine 100 mg 1 tab PO Q30M PRN migraine 02/01/25 tablet headache 30 days #30 tabs atorvastatin 40 mg tablet 40 mg PO DAILY 90 days #90 tabs 02/02/25 Held on 04/17/25. Instructions: Resume on 06/09/25. pantoprazole 40 mg tablet,delayed 40 mg PO DAILY #90 tabs 02/17/25 release rollator walker with seat #1 ea 02/20/25 trazodone 100 mg tablet 400 mg (4 x 100 mg) PO BEDTIME 30 02/21/25 days #120 tabs clonidine HCl 0.3 mg tablet 0.3 mg PO BEDTIME #90 tabs 03/27/25 cyanocobalamin (vitamin B-12) 1,000 mcg PO DAILY #90 tabs 03/27/25 1,000 mcg tablet (Vitamin B-12) daptomycin 500 mg intravenous 600 mg IV Q24H #0 ea 04/17/25 solution tizanidine 2 mg tablet 2 mg PO Q8H muscle spasticity 15 05/30/25 days #45 tabs sulfamethoxazole 800 1 tab PO BID 14 days #28 tabs 06/02/25 mg-trimethoprim 160 mg tablet (Bactrim DS) hydrocodone 5 mg-acetaminophen 325 1 - 2 tab PO Q6H PRN pain #30 tabs 06/08/25 mg tablet Allergies Allergy/AdvReac Type Severity Reaction Status Date / Time gabapentin Allergy Intermediate Nausea and Verified 06/14/25 15:31 Vomiting morphine (Morphine) Allergy Intermediate VOMITING Verified 06/14/25 15:31 oxycodone (Percocet) Allergy Intermediate Vomiting Verified 06/14/25 15:31 methocarbamol AdvReac Intermediate GI upset Verified 06/14/25 15:31 Review of Systems Review of Systems: Positive back pain Yes all other systems are reviewed and are negative PMFSH Past Medical History Attestation statement: The following information was validated with the patient. Medical History Anemia Anxiety MDD (major depressive disorder) Gout GERD (gastroesophageal reflux disease) Ambulates with cane Smoker Hyperuricemia Asthma Obese Osteoarthritis Trigger finger Carpal tunnel syndrome Hyperlipidemia LDL goal <100 Essential hypertension Hyperlipidemia Cellulitis, umbilical Surgical History History of esophagogastroduodenoscopy (EGD) Hx of colonoscopy History of laparoscopic appendectomy History of foot surgery History of carpal tunnel release H/O: hysterectomy Family History Family History Father Diabetes Hypertension Stroke Heart attack, Onset Age: 50 Mother Multiple sclerosis Brother In good health Son In good health Son In good health Other Patient denies medical problems Social History Social History Household Members: Spouse and Children Housing: Apartment Are you a primary chiropractic care to a significant other at home: No Do you presently have visiting nurse or other home services: No Alcohol intake: current Alcohol intake frequency: holidays/special occasions only Alcohol type: beer Patient Tobacco Use Status: Current everyday Tobacco user Tobacco use type: Cigarette Cigarette Packs Per Day: 0.5 Cigarettes Per Day: 10.0 Years Smoked: 46 Smoked in Last 30 Days: Yes e-Cigarette/Vaping Use: Never Used Second Hand Smoke Exposure: Yes Use of substances other than those prescribed or required for medical reasons: No Advance Directives: No Advance Directives Information Provided: Yes Do you have a plan to hurt others: No Plan service: No Current occupational status: disabled Cognitive needs: No Hearing needs: No Vision needs: Yes (glasses) Physical Exam Exam: Exam: Appearance: Alert. Oriented X3. No acute distress. Eyes: Pupils equal, round and reactive to light. ENT: Pharynx normal. Neck: Normal inspection. Neck supple. No lymph nodes noted. No crepitus CVS: Normal heart rate and rhythm. Pulses normal. Normal S1 and S2 Respiratory: No respiratory distress. Breath sounds normal. No Wheezing. No rales Abdomen: Soft and nontender. No rigidity. No distention. good BS x4 Skin: Skin warm and dry. Normal skin color. Normal skin turgor. Extremities: No lower extremity edema. Neurovascular intact to all extremities. No Lacerations. No Rash Neuro: Oriented X 3. No motor deficit. No sensory deficit. Moving all extermities. No slurred speech. The wound in the lumbar area seems like it is healing. There is a packing that is noted in the wound. There is no gross discharge noted. There is no redness surrounding the wound. Distal pulses intact. Distal sensation intact. Movement of the lower extremity intact. Vital Signs: Vital Signs: Last Vital Signs Temp 98.1 F 06/14/25 20:58 Pulse 85 06/14/25 20:58 Resp 16 06/14/25 20:58 BP 108/58 L 06/14/25 20:58 Pulse Ox 98 06/14/25 20:58 O2 Del Method Nasal Cannula 06/14/25 20:58 O2 Flow Rate 2 06/14/25 20:58 BMI result Body Mass Index 35.8 Medications Administered Discontinued Medications Generic Name Dose Route Start Last Admin Trade Name Mitch PRN Reason Stop Dose Admin Gadobutrol 10 ml 06/14/25 19:55 06/14/25 19:56 Gadobutrol 10 Ml Vial IVPUSH 06/14/25 19:56 10 ml ONCE ONE Administration Hydromorphone HCl 0.5 mg 06/14/25 16:49 06/14/25 16:57 Hydromorphone Hcl 0.5 Mg/0.5 Ml Syringe IVPUSH 06/14/25 16:50 0.5 mg ONCE ONE Administration Protocol Sodium Chloride 1,000 mls @ 999 mls/hr 06/14/25 18:15 06/14/25 18:19 Ns IV 06/14/25 19:15 999 mls/hr .Q1H1M JAMES Administration Ondansetron HCl 4 mg 06/14/25 16:49 06/14/25 16:57 Ondansetron Hcl 4 Mg/2 Ml Vial IVPUSH 06/14/25 16:50 4 mg ONCE ONE Administration Medical Decision Making Medical Decision Making MDM Narrative: Significant back pain ongoing. Patient's white count is 15. This is new when compared to previous. There is mild left shift. The finding was discussed with Dr. Hwang. Agreed patient's should get an MRI to further evaluate the back issue. Pain medication given. Sed rate and CRP ordered on the advice from spine surgery. Currently in stable condition there is no evidence for cauda equinus syndrome there is no bowel urinary incontinence. In stable condition. I sent patient for MRI because patient had an elevated white count. I discussed the case with Dr. Hwang. MRI results showed a likely iliopsoas fluid collection question abscess. Also diskitis. In the setting of elevated CRP in the setting of having an elevated white count. Hospitalist team was consulted. We put in a call for Infectious Disease. Patient will require admission IV antibiotics we started patient on Zosyn and also vancomycin. Lactate and cultures were drawn. Patient to be admitted. Differential Diagnosis Differential Diagnoses: The differential diagnosis associated with the presentation includes Wound infection, abscess, diskitis Admission/Observation Consideration of admission/observation: Escalation of care including admission/observation considered Consult Healthcare Provider Management of the patient was discussed with: Hospitalist and Property Analyst (Spine surgery) Lab Data MDM Lab Attestation statement: I reviewed the patient's lab results. 06/14/25 16:08 06/14/25 16:08 Labs: Lab Results 06/14/25 Range/Units 16:08 WBC 15.1 H (4.8-10.8) X10*3/uL RBC 3.92 L D (4.20-5.50) X10*6/uL Hgb 10.7 L D (12.0-16.0) g/dl Hct 32.8 L D (37.0-47.0) % MCV 83.7 (80.0-98.0) fL MCH 27.3 (27.0-33.0) pg MCHC 32.6 (31.0-35.0) g/dl RDW 14.8 (11.0-16.0) % Plt Count 482 H (160-400) X10*3/uL MPV 8.0 L (9.4-12.3) fL Immature Gran % (Auto) 0.3 (0.0-0.4) % Neut % (Auto) 78.5 H (45-73) % Lymph % (Auto) 16.6 L (20-40) % [place] % (Auto) 4.2 (2-11) % Eos % (Auto) 0.1 (0-4) % Baso % (Auto) 0.3 (0-2) % Lymph # (Auto) 2.5 (1.2-4.9) X10*3/uL [place] # (Auto) 0.6 (0.1-1.2) X10*3/uL Eos # (Auto) 0.0 (0.0-0.4) X10*3/uL Baso # (Auto) 0.0 (0.0-0.2) X10*3/uL Abs Immat Gran (auto) 0.05 H (0.00-0.03) X10*3/uL Absolute Neuts (auto) 11.9 H (2.0-8.3) x10*3/uL Absolute Nucleated RBC 0.000 (0.0-0.012) X10*3/uL Nucleated RBC % (auto) 0.0 (0.0-0.2) /100WBC ESR 98 H (0-20) MM/HR Sodium 138 (135-145) mmol/L Potassium 3.9 (3.3-5.1) mmol/L Chloride 103 (96-108) mmol/L Carbon Dioxide 23 (22-29) mmol/L Anion Gap 16 (12-20) BUN 15 (9-16) mg/dL Creatinine 0.92 (0.5-1.4) mg/dL Estim Creat Clear Calc 75.1 Estimated GFR > 60 Random Glucose 109 (60-115) mg/dL Calcium 11.3 H D (8.4-10.2) mg/dL Total Bilirubin 0.2 (0.0-1.0) mg/dL AST 26 (5-31) U/L ALT 11 (0-31) U/L Alkaline Phosphatase 101 (39-117) U/L C-Reactive Protein 5.05 H (< or = 0.50) mg/dL Total Protein 8.6 H (6.5-8.0) g/dL Albumin 3.7 (3.5-5.0) g/dL Radiology Impression Discussion of test interpretation with radiology: I discussed test interpretation with the radiologist and I have reviewed the radiologist's reading. Radiologist Impression: I discussed the MRI finding with radiology's Critical Care Time Critical Care Time Critical Care Time: Yes Total Critical Care Time: 40 Attestation: I have personally provided 40 minutes of critical care time exclusive of time spent on separately billable procedures. ?Time includes review of lab data, radiology results, discussion with consultants, and monitoring for potential decompensation. ?Interventions were performed as documented above Discharge Plan Discharge Clinical Impression: Iliopsoas abscess Patient Disposition: Admitted As Inpatient Print Language: Singaporean
--- NOTE | 2025-06-14 18:20 | PC.NURSE ---
Pt's SBP 80s/90s. notified. 1L NS bolus hung.
--- NOTE | 2025-06-14 21:13 | PM.IMHP ---
History of Present Illness Date of Service: 06/14/25 Attending physician on admission: Lary Nguyen Chief Complaint: lower back pain Pt is a 54 yo female with PMH OA of lumbar spine with surgical intervention March 14 2025 and MRSA infection dx 04/08/25, HX of MRSA Left thigh early 40's, tobacco dependence, obesity, MDD, Asthma only on rescue inhaler, gout, GERD, Migraine with no aura, HTN, DM no longer on metformin as it is well controlled, CTS with surgery, Hysterectomy due to bleeding, appendectomy presents to the ED with complaints of worsening back pain over the last 3-4 weeks. Pt had surgery 03/14/2025 for OA of lumbar spine and developed MRSA infection with known hx of MRSA remotely in Left thigh. Pt was admitted late March 2025 and continued Daptomycin via PICC line on discharge home and completed daptomycin June 08 and continued on Bactrim for 28 more days. Pt was following with Dr. Peres in ID since discharge back in April. Pt has had nursing services in twice a week for PICC line dressing change and wound care to lumbar spine which included packing of the area. The PICC line was discontinued by home care nursing staff. Pt's also learned to do dressing changes and performed the dressing change on days nursing was not present. Pt states the wound was getting smaller but the pain in the back was not improving. The wound has always drained a staton colored mildly cloudy drainage. Pt has not had any chills, fever, night sweats, N/V, abdominal pain or injury to affected area to include any falls. Pt has been using a walker to ambulate but in the past few days, it has been more difficult to walk. Pt denies loss of sensation, bowel or bladder control or neuropathy in lower legs. Work up in the ED included MRI of spine which noted: 1. Ilipsoas abscess posterior L paraspinal back area 2. discitis OM L1-L4 3. seroma vs abscess midline back 2.4X1.4X2.4 ED provider, Dr. GARCIA notified Dr. Bull and asked that pt be admitted on IV ABX. Dr. Madrigal also consulted but no return call overnight. Official consults placed for Dr. Bull and Dr. Madrigal. Pt stated on Vancomycin and Zosyn for broad coverage. Pain mgmt included dilaudid which has provided some relief. Surgical site is small, with soiled wick noted and staton purulent drainage on dressing. No other opened wounds found. Review of Systems Review of Systems: Pt denies N/V, abd pain, chest pain, REYNA, SOB at rest. Pt reports back pain especially with moving. Pt denies chills, fever, or loss of appetite. Yes all other systems are reviewed and are negative [facility] Medical History (Updated 06/14/25 @ 23:10 by JOAQUIN Girard) MRSA (methicillin resistant Staphylococcus aureus) infection Anemia Anxiety MDD (major depressive disorder) Gout GERD (gastroesophageal reflux disease) Ambulates with cane Smoker Hyperuricemia Asthma Obese Osteoarthritis Trigger finger Carpal tunnel syndrome Hyperlipidemia LDL goal <100 Essential hypertension Hyperlipidemia Cellulitis, umbilical Cognitive capacity: A/O X3 Functional capacity: uses cane/walker Patient : No Family History Father Diabetes Hypertension Stroke Heart attack, Onset Age: 50 Mother Multiple sclerosis Brother In good health Son In good health Son In good health Other Patient denies medical problems Surgical History History of esophagogastroduodenoscopy (EGD) Hx of colonoscopy History of laparoscopic appendectomy History of foot surgery History of carpal tunnel release H/O: hysterectomy Social History Household Members: Spouse and Children Housing: Apartment Are you a primary associate director career services to a significant other at home: No Do you presently have visiting nurse or other home services: No Alcohol intake: current Alcohol intake frequency: holidays/special occasions only Alcohol type: beer Patient Tobacco Use Status: Current everyday Tobacco user Tobacco use type: Cigarette Cigarette Packs Per Day: 0.5 Cigarettes Per Day: 10.0 Years Smoked: 46 e-Cigarette/Vaping Use: Never Used Second Hand Smoke Exposure: Yes service: No Current occupational status: disabled Cognitive needs: No Hearing needs: No Vision needs: Yes (glasses) Ebola Risk: Travel/Contact With Anyone From Affected Area/s: No Has Patient Experienced Ebola Symptoms: No Meds Allergies Allergy/AdvReac Type Severity Reaction Status Date / Time gabapentin Allergy Intermediate Nausea and Verified 06/14/25 15:31 Vomiting morphine (Morphine) Allergy Intermediate VOMITING Verified 06/14/25 15:31 oxycodone (Percocet) Allergy Intermediate Vomiting Verified 06/14/25 15:31 methocarbamol AdvReac Intermediate GI upset Verified 06/14/25 15:31 Active Medications: Current Medications Acetaminophen (Acetaminophen 325 Mg Tablet) 650 mg PO Q6H PRN PRN Reason: Pain, Mild 1-3,fever,headache Al Hydroxide/Mg Hydroxide (Magnesium Hydrox/Alum Hydrox 30 Ml Oral.Susp) 30 ml PO Q4H PRN PRN Reason: Heartburn Albuterol/Ipratropium (Albuterol/Iprat 2.5/0.5mg 3 Ml Ampul.Neb) 3 ml INHALE Q4H PRN PRN Reason: Shortness of Breath/Wheezing Calcium Carbonate (Calcium Carbonate 750 Mg Tab.Chew) 750 mg PO Q4H PRN PRN Reason: Heartburn Vancomycin HCl 1,250 mg/ (Sodium Chloride) 250 mls @ 166.667 mls/hr IV ONCE ONE Stop: 06/14/25 22:01 Piperacillin Sod/Tazobactam (Sod 4.5 gm/ Sodium Chloride) 100 mls @ 200 mls/hr IV Q6H JAMES Sodium Chloride (Ns) 1,000 mls @ 125 mls/hr IVCONT .Q8H JAMES Magnesium Hydroxide (Milk Of Magnesia 30 Ml Oral.Susp) 30 ml PO DAILY PRN PRN Reason: Constipation Melatonin (Melatonin 3 Mg Tablet) 6 mg PO BEDTIME PRN PRN Reason: Insomnia Ondansetron HCl (Ondansetron Hcl 4 Mg/2 Ml Vial) 4 mg IVPUSH Q8H PRN PRN Reason: Nausea and Vomiting Pharmacy Consult (Consult Rx Vancomycin Dosing) 1 each MISCELLANE DAILY PRN PRN Reason: Consult order Polyethylene Glycol (Polyethylene Glycol 3350 17 Gm Powd.Pack) 17 gm PO DAILY PRN PRN Reason: Constipation Senna (Sennosides 8.6 Mg Tablet) 17.2 mg PO BEDTIME JAMES Sodium Chloride (0.9 % Sodium Chloride Flush 3 Ml Syringe) 3 ml IVFLUSH QSHIFT JAMES Home Medications ?Medication ?Instructions ?Recorded ?Confirmed ?Last Taken ?Type multivitamin 1 tab PO DAILY 07/31/22 06/14/25 06/14/25 History omega-3 fatty acids 500 mg capsule 500 mg PO DAILY 03/01/25 06/14/25 06/14/25 History baclofen 10 mg tablet 10 mg PO BID PRN Muscle Spasm 04/08/25 06/14/25 06/14/25 History albuterol sulfate 90 mcg/actuation 1 puff inhalation QID PRN 06/14/25 06/14/25 Unknown History aerosol inhaler Shortness Of Breath Or Wheezing pantoprazole 40 mg tablet,delayed 40 mg PO DAILY@0630 06/14/25 06/14/25 06/14/25 History release Physical Exam Vital Signs and Narrative: Vital Signs: Last Vital Signs Temp 98.1 F 06/14/25 20:58 Pulse 85 06/14/25 20:58 Resp 16 06/14/25 20:58 BP 108/58 L 06/14/25 20:58 Pulse Ox 98 06/14/25 20:58 O2 Del Method Nasal Cannula 06/14/25 20:58 O2 Flow Rate 2 06/14/25 20:58 BMI result Body Mass Index 35.8 A/O X3, able to provide HPI Neuro: CN II-XII intact, no saddle anesthesia, evidence of cauda equina EYES: PERRLA, sclerae nonicteric, conjunctiva pink ENT: hearing intact, uvula midline, lips moist, nares patent no epistaxis Cardiac: S1 S2 RRR, no murmur, no JVD, no edema in Lower ext Pulmonary: lungs CTA B Abdominal: BS active in all 4 quadrants, no guarding, tenderness MSK: strength 4/5 upper and lower extremities : no CVA tenderness Extremities: no edema in lower extremities, PT and DP pulses palpable +2 Psych: mood stable, judgement and insight good Skin: lumbar opening,wick present soiled wiht staton purulent drainage Results Labs 06/14/25 16:08 06/14/25 16:08 Labs: Laboratory Results - last 24 hr 06/14/25 16:08 MCV 83.7 MCH 27.3 MCHC 32.6 RDW 14.8 Plt Count 482 H MPV 8.0 L Immature Gran % (Auto) 0.3 Neut % (Auto) 78.5 H Lymph % (Auto) 16.6 L Saline % (Auto) 4.2 Eos % (Auto) 0.1 Baso % (Auto) 0.3 Lymph # (Auto) 2.5 Saline # (Auto) 0.6 Eos # (Auto) 0.0 Baso # (Auto) 0.0 Abs Immat Gran (auto) 0.05 H Absolute Neuts (auto) 11.9 H Absolute Nucleated RBC 0.000 Nucleated RBC % (auto) 0.0 ESR 98 H Anion Gap 16 Estim Creat Clear Calc 75.1 Estimated GFR > 60 Random Glucose 109 Calcium 11.3 H D Total Bilirubin 0.2 AST 26 ALT 11 Alkaline Phosphatase 101 C-Reactive Protein 5.05 H Total Protein 8.6 H Albumin 3.7 Imaging Radiologist's Impressions: MRI spine Lumbar IMPRESSION: 1. Findings highly concerning for discitis osteomyelitis extending from L1 to the superior endplate of L4. 2. Left iliopsoas abscess. Posterior left paraspinal back musculature small abscess. 3. Subcutaneous fluid collection in the midline back measuring 2.4 x 1.4 x 2.4 which may be seroma or abscess. Assessment and Plan (1) Iliopsoas abscess: Status: Acute Plan Pt is a 54 yo female with PMH OA of lumbar spine with surgical intervention March 14 2025 and MRSA/ sepsis infection dx 04/08/25, HX of MRSA Left thigh early 40's, tobacco dependence, obesity, MDD, Asthma only on rescue inhaler, gout, GERD, Migraine with no aura, HTN, DM no longer on metformin as it is well controlled, CTS with surgery, Hysterectomy due to bleeding, appendectomy presents to the ED with complaints of worsening left back pain over the last 3-4 weeks. Pt had surgery 03/14/2025 for OA of lumbar spine and developed MRSA infection and sepsis with known hx of MRSA remotely in Left thigh. Pt was admitted late April 2025 and continued Daptomycin via PICC line on discharge to home and completed daptomycin June 08 and continued on Bactrim for 28 more days. Pt having increasing issues with ambulation due to pain but denies loss of sensation of function overall. ED consulted with Dr. Bull and pt admitted as requested for IV ABX. HX of MRSA infection/sepsis post Lumbar surgery 03/14/25 - infection dx 04/08/2025 MRI currently positive for 1. Ilipsoas abscess posterior L paraspinal back area 2. discitis OM L1-L4 3. seroma vs abscess midline back 2.4X1.4X2.4 Pt does not meet criteria for sepsis at time of admission Neurosurgery aware of pt, consulted ID consulted - hx of being on Daptomycin last dose 06/08/25 now on Bactrim (per pt) for 28 days total (on hold). Pt follows with Dr. Madrigal outpatient. Vancomycin and Zosyn started in ED. Contact precautions placed IVF continue hourly LA 1.0, ESR 98, CRP 5.05 BC pending, no picc line if indicated until BC results final and are negative Wound culture of lumbar spine opending ordered Wound care consultation placed Pain management -dilaudid, pt cannot take oxycodone due to GI symptoms NPO after midnight in case procedure needed or intervention/ aspiration Hypercalcemia 11.3 Likely not from TB or fungal infection Will check Vitamin D level, ionized CA level and IPTH Renal fx stable IVF continue Pt is not usually on thiazides No hx of cancer or current suspicion NIDDM SSI ordered for NPO status A1C 5.7 03/2025 Diabetic diet when able to eat, pt no longer on metformin due to good control GERD Protonix IV ASTHMA PRN Duonebs Continue Singulair Gout Continue Allopurinol Uric Acid level pending HTN Continue Losartan if BP remains stable Low Na diet when eating HLD Normally on Statin [place] 3 equivalent requested Monitor LFTs Cardiac diet TOBACCO DEPENDENCE Nicotine patch ordered, 14 mgs as pt smokes 0.5 PPD Pt counseled on the benefits of smoking cessation MDD Continue Trazodone at HS Continue Clonidine Mood stable, mild frustration over continued infection expressed, No SI, HI DVT prophylaxis: held in case procedure indicated MED REC COMPLETED FULL CODE Quality Stroke Does the patient have a stroke diagnosis?: No Reason for No Anti-thrombotic by Day Two: Contraindicated VTE Prior VTE?: No VTE Risk Level:: Medical - moderate - high VTE Device Contraindication: N/A - Device Ordered VTE Drug Contraindication: Treatment Not Indicated
--- NOTE | 2025-06-14 21:52 | PHA.MEDREC ---
Addendum entered by Marsha Bui RPh 06/14/25 22:25: [facility] REVIEWED Original Note: Pharmacy Consult ? Medication Reconciliation Pharmacy has completed the medication reconciliation. patient had a list of her medications with her. patient confirmed Trazodone 400 mg (4x100 mg) at bedtime. Patient had all her morning medications today.
[2025-06-14] MEDS: vancomycin/NS 2,000 MG/500 ML PLAST..BAG 250 MG IV (22:42)
[2025-06-14 23:22] LABS: Uric Acid 4.3 mg/dL (2.4-5.7)
[2025-06-14] MEDS: Nicotine 14 MG PATCH.TD24 TRANSDERMA (23:53)
[2025-06-15] VITALS (8 sets, daily range): BP systolic 104–129; BP diastolic 51–75; PULSE 59–77; RESP 16–18; TEMP 36.4–37.1; O2SAT 92–98; BMI 35.4
[2025-06-15] MEDS: Magnesium Sulfate/H2O 2 GM/50 ML PIGGYBACK IV (00:46)
--- NOTE | 2025-06-15 01:00 | PC.NURSE ---
0134 Report given to MELISA Foley in overflow [id number] Coccyx wound dressing changed per provider note
[2025-06-15 02:44] LABS: Glucose, Whole Blood 97 mg/dL (60-115)
[2025-06-15 04:58] LABS: Hematocrit 27.4 % (37.0-47.0); Hemoglobin 8.8 g/dl (12.0-16.0); Imm Gran Abs Auto 0.03 X10*3/uL (0.00-0.03); Imm Gran Pct Auto 0.4 % (0.0-0.4); Lymphocytes Absolute Auto 2.8 X10*3/uL (1.2-4.9); MANUAL DIFF FLAG NO; Mean Corpuscular HGB Conc 32.1 g/dl (31.0-35.0); Mean Corpuscular Hemoglobin 27.6 pg (27.0-33.0); Mean Corpuscular Volume 85.9 fL (80.0-98.0); NRBC Abs Auto 0.000 X10*3/uL (0.0-0.012); NRBC Pct Auto 0.0 /100WBC (0.0-0.2); Platelet Count 393 X10*3/uL (160-400); Red Blood Count 3.19 X10*6/uL (4.20-5.50); White Blood Count 8.6 X10*3/uL (4.8-10.8)
[2025-06-15 05:21] LABS: Alanine Aminotransferase 10 U/L (0-31); Albumin Level 3.0 g/dL (3.5-5.0); Alkaline Phosphatase 81 U/L (39-117); Anion Gap 13 (12-20); Aspartate Amino Transferase 23 U/L (5-31); Blood Urea Nitrogen 14 mg/dL (9-16); Calcium 10.1 mg/dL (8.4-10.2); Carbon Dioxide 23 mmol/L (22-29); Chloride 107 mmol/L (96-108); Creatinine Clr Calc Pharmacy 80.3; Estimated Glomerular Filt Rate > 60; Parathyroid Hormone Intact 31.3 pg/mL (8.7-77.1); Potassium 4.3 mmol/L (3.3-5.1); Sodium 139 mmol/L (135-145); Total Protein 7.0 g/dL (6.5-8.0)
[2025-06-15 09:39] LABS: Glucose, Whole Blood 84 mg/dL (60-115)
[2025-06-15] MEDS: Nicotine 14 MG PATCH.TD24 TRANSDERMA (10:28)
--- NOTE | 2025-06-15 10:36 | MHC.CM.ED ---
Met with patient in regards to discharge planning. Patient lives with her , ambulates with a walker and is active with [facility]. PCP verified. Patient denies having a HCP. HCP offered. Patient declined. IMM explained and signed. Patient was d/c'd from [facility] [place] on 04/17/25 with 8 weeks of IV antibiotics and a PICC line. Antiboitics and PICC line was d/c'd on 06/08/25. Patient reports never being to short term rehab and feels she can safely return home with [facility]. Her son will transport her home. Continue to monitor for d/c needs.
[2025-06-15 12:00] LABS: Glucose, Whole Blood 82 mg/dL (60-115)
[2025-06-15 12:32] LABS: Appearance Urine Clear; Glucose Urine UA Negative (Negative); PH 5.5 (5.0-9.0); Specific Gravity - Urine 1.020 (1.005-1.025); UMIC TRIGGER UA YES
--- NOTE | 2025-06-15 14:29 | HO.PM.IMPN ---
Subjective Subjective Date of Service: 06/15/25 Interval History: c/o chills, no fever c/o back pain Review of Systems Review of Systems: Yes all other systems are reviewed and are negative Physical Exam Vital Signs: Vital Signs: Last Vital Signs Temp 98.7 F 06/15/25 12:00 Pulse 71 06/15/25 12:00 Resp 16 06/15/25 12:00 BP 119/60 06/15/25 12:00 Pulse Ox 94 06/15/25 12:00 O2 Del Method Room Air 06/15/25 12:00 O2 Flow Rate 2 06/15/25 03:19 BMI result Body Mass Index 35.8 Gen: in no acute distress HEENT: sclera anicteric, moist mucus membranes Neck: supple Lungs: clear to auscultation bilaterally Heart: regular rate and rhythm, no murmurs Abd: soft, non-tender, non-distended Ext: no edema Skin: warm/well-perfused, lumbar wound with scant serous drainage Neuro: alert and oriented x3, no focal findings Psych: appropriate affect Objective Data Active Medications Acetaminophen (Acetaminophen 325 Mg Tablet) 650 mg PO Q6H PRN PRN Reason: Pain, Mild 1-3,fever,headache Al Hydroxide/Mg Hydroxide (Magnesium Hydrox/Alum Hydrox 30 Ml Oral.Susp) 30 ml PO Q4H PRN PRN Reason: Heartburn Albuterol/Ipratropium (Albuterol/Iprat 2.5/0.5mg 3 Ml Ampul.Neb) 3 ml INHALE Q4H PRN PRN Reason: Shortness of Breath/Wheezing Allopurinol (Allopurinol 100 Mg Tablet) 100 mg PO DAILY [facility] Last Admin: 06/15/25 10:28 Dose: 100 mg Documented By: MARY Atorvastatin Calcium (Atorvastatin Calcium 40 Mg Tablet) 40 mg PO DAILY [facility] Last Admin: 06/15/25 10:28 Dose: 40 mg Documented By: MARY Baclofen (Baclofen 10 Mg Tablet) 10 mg PO DAILY [facility] Last Admin: 06/15/25 10:28 Dose: 10 mg Documented By: MARY Calcium Carbonate (Calcium Carbonate 750 Mg Tab.Chew) 750 mg PO Q4H PRN PRN Reason: Heartburn Clonidine HCl (Clonidine Hcl 0.1 Mg Tablet) 0.3 mg PO BEDTIME [facility]; Protocol Last Admin: 06/14/25 23:54 Dose: 0.3 mg Documented By: CULLEN Cyanocobalamin (Cyanocobalamin (Vitamin B-12) 1,000 Mcg Tablet) 1,000 mcg PO DAILY [facility] Last Admin: 06/15/25 10:26 Dose: 1,000 mcg Documented By: MARY Dextrose (Dextrose 50 % 25 Gm/50 Ml Syringe) 25 gm IVPUSH Q15M PRN; Protocol PRN Reason: per Hypoglycemia Standing Ord. Glucose (Glucose Gel 15 Gm Gel..Gram.) 15 gm PO Q15M PRN; Protocol PRN Reason: per Hypoglycemia Standing Ord. Hydromorphone HCl (Hydromorphone Hcl 0.5 Mg/0.5 Ml Syringe) 0.5 mg IVPUSH Q3H PRN; Protocol PRN Reason: Pain, Severe (Pain Scale 7-10) Last Admin: 06/15/25 06:31 Dose: 0.5 mg Documented By: BRISA Piperacillin Sod/Tazobactam (Sod 4.5 gm/ Sodium Chloride) 100 mls @ 200 mls/hr IV Q6H [facility] Last Infusion: 06/15/25 10:53 Dose: Infused Documented By: MARY Sodium Chloride (Ns) 1,000 mls @ 125 mls/hr IVCONT .Q8H [facility] Last Admin: 06/15/25 10:52 Dose: 125 mls/hr Documented By: MARY Vancomycin HCl 1,000 mg/ (Sodium Chloride) 270 mls @ 270 mls/hr IV Q12H [facility] Last Infusion: 06/15/25 12:19 Dose: Infused Documented By: MARY Insulin Human Lispro (Insulin Lispro 100 Unit/Ml 3 Ml Vial) 0 unit SUBCUT Q6H [facility]; Protocol Last Admin: 06/15/25 12:06 Dose: Not Given Documented By: MARY Non-Admin Reason: No Insulin Coverage Losartan Potassium (Losartan Potassium 50 Mg Tablet) 50 mg PO DAILY [facility]; Protocol Last Admin: 06/15/25 10:44 Dose: Not Given Documented By: MARY Non-Admin Reason: Physician Held Med Magnesium Hydroxide (Milk Of Magnesia 30 Ml Oral.Susp) 30 ml PO DAILY PRN PRN Reason: Constipation Magnesium Oxide (Magnesium Oxide 400 Mg Tablet) 400 mg PO DAILY [facility] Last Admin: 06/15/25 10:26 Dose: 400 mg Documented By: MARY Melatonin (Melatonin 3 Mg Tablet) 6 mg PO BEDTIME PRN PRN Reason: Insomnia Montelukast Sodium (Montelukast Sodium 10 Mg Tablet) 10 mg PO DAILY [facility] Last Admin: 06/15/25 10:28 Dose: 10 mg Documented By: MARY Multivitamins/Vitamin C (Multivitamin Tablet) 1 tab PO DAILY [facility] Last Admin: 06/15/25 10:26 Dose: 1 tab Documented By: MARY Nicotine (Nicotine 14 Mg Patch.Td24) 14 mg TRANSDERMA DAILY [facility] Last Admin: 06/15/25 10:28 Dose: 14 mg Documented By: MARY Non-Formulary Medication (Ergotamine-Caffeine) 1 tab PO Q30M PRN PRN Reason: migraine headache Ondansetron HCl (Ondansetron Hcl 4 Mg/2 Ml Vial) 4 mg IVPUSH Q8H PRN PRN Reason: Nausea and Vomiting Pantoprazole Sodium (Pantoprazole Sodium 40 Mg/10 Ml Vial) 40 mg IVPUSH DAILY@0630 [facility] Last Admin: 06/15/25 06:32 Dose: Not Given Documented By: BRISA Non-Admin Reason: NPO Pharmacy Consult (Consult Rx Vancomycin Dosing) 1 each MISCELLANE DAILY PRN PRN Reason: Consult order Polyethylene Glycol (Polyethylene Glycol 3350 17 Gm Powd.Pack) 17 gm PO DAILY PRN PRN Reason: Constipation Senna (Sennosides 8.6 Mg Tablet) 17.2 mg PO BEDTIME [facility] Sodium Chloride (0.9 % Sodium Chloride Flush 3 Ml Syringe) 3 ml IVFLUSH QSHIFT [facility] Last Admin: 06/15/25 08:59 Dose: Not Given Documented By: MARY Non-Admin Reason: IV Running Trazodone HCl (Trazodone Hcl 100 Mg Tablet) 400 mg PO BEDTIME [facility] Last Admin: 06/14/25 23:53 Dose: 400 mg Documented By: N-MATTE Labs 06/15/25 04:41 06/15/25 04:41 Labs: Laboratory Results - last 24 hr 06/14/25 06/14/25 06/15/25 16:08 20:58 02:41 MCV 83.7 MCH 27.3 MCHC 32.6 RDW 14.8 Plt Count 482 H MPV 8.0 L Immature Gran % (Auto) 0.3 Neut % (Auto) 78.5 H Lymph % (Auto) 16.6 L [place] % (Auto) 4.2 Eos % (Auto) 0.1 Baso % (Auto) 0.3 Lymph # (Auto) 2.5 [place] # (Auto) 0.6 Eos # (Auto) 0.0 Baso # (Auto) 0.0 Abs Immat Gran (auto) 0.05 H Absolute Neuts (auto) 11.9 H Absolute Nucleated RBC 0.000 Nucleated RBC % (auto) 0.0 ESR 98 H Anion Gap 16 Estim Creat Clear Calc 75.1 Estimated GFR > 60 POC Glucose 97 Random Glucose 109 Lactic Acid 1.0 Uric Acid 4.3 Calcium 11.3 H D Total Bilirubin 0.2 AST 26 ALT 11 Alkaline Phosphatase 101 C-Reactive Protein 5.05 H Total Protein 8.6 H Albumin 3.7 PTH Intact Urine Color Urine Appearance Urine pH Ur Specific [place] Urine Protein Urine Glucose (UA) Urine Ketones Urine Blood Urine Nitrite Ur Leukocyte Esterase Urine RBC Urine WBC Ur Squamous Epith Cells Urine Bacteria Hyaline Casts 06/15/25 06/15/25 06/15/25 04:41 09:34 11:56 MCV 85.9 MCH 27.6 MCHC 32.1 RDW 14.9 Plt Count 393 MPV 8.0 L Immature Gran % (Auto) 0.4 Neut % (Auto) 60.0 Lymph % (Auto) 32.4 [place] % (Auto) 5.6 Eos % (Auto) 1.1 Baso % (Auto) 0.5 Lymph # (Auto) 2.8 [place] # (Auto) 0.5 Eos # (Auto) 0.1 Baso # (Auto) 0.0 Abs Immat Gran (auto) 0.03 Absolute Neuts (auto) 5.2 Absolute Nucleated RBC 0.000 Nucleated RBC % (auto) 0.0 ESR Anion Gap 13 Estim Creat Clear Calc 80.3 Estimated GFR > 60 POC Glucose 84 82 Random Glucose 93 Lactic Acid Uric Acid Calcium 10.1 D Total Bilirubin 0.2 AST 23 ALT 10 Alkaline Phosphatase 81 C-Reactive Protein Total Protein 7.0 Albumin 3.0 L PTH Intact 31.3 Urine Color Urine Appearance Urine pH Ur Specific [place] Urine Protein Urine Glucose (UA) Urine Ketones Urine Blood Urine Nitrite Ur Leukocyte Esterase Urine RBC Urine WBC Ur Squamous Epith Cells Urine Bacteria Hyaline Casts 06/15/25 12:16 MCV MCH MCHC RDW Plt Count MPV Immature Gran % (Auto) Neut % (Auto) Lymph % (Auto) [place] % (Auto) Eos % (Auto) Baso % (Auto) Lymph # (Auto) [place] # (Auto) Eos # (Auto) Baso # (Auto) Abs Immat Gran (auto) Absolute Neuts (auto) Absolute Nucleated RBC Nucleated RBC % (auto) ESR Anion Gap Estim Creat Clear Calc Estimated GFR POC Glucose Random Glucose Lactic Acid Uric Acid Calcium Total Bilirubin AST ALT Alkaline Phosphatase C-Reactive Protein Total Protein Albumin PTH Intact Urine Color Yellow Urine Appearance Clear Urine pH 5.5 Ur Specific [place] 1.020 Urine Protein Negative Urine Glucose (UA) Negative Urine Ketones Negative Urine Blood Negative Urine Nitrite Negative Ur Leukocyte Esterase Trace H Urine RBC 0-2 Urine WBC 0-5 Ur Squamous Epith Cells 0-2 Urine Bacteria None Seen Hyaline Casts 0-2 Microbiology Microbiology Results: Microbiology 06/15/25 01:18 Gram Stain - Final Spine Assessment and Plan (1) Diskitis: Status: Acute Plan d2, 54yo F with L3-4, L4-5 spinal stenosis/lateral recess stenosis/neural foraminal stenosis, s/p right L3-4, L4-5 Laminotomy, Partial facetectomy and L5 foraminotomy 03/14/25 complicated by sepsis due to MRSA bacteremia due to diskitis, myositis, micro abscesses; treated with 8 wk of daptomycin with plan to transition to TMP-SMX x4 wk but sent in with worsening pain and cloudy drainage from lumbar wound. MRI with iliopsoas abscess, diskitis/osteomyelitis L1-L4, seroma vs abscess in midline of back. diskitis/osteomyelitis - Neurosurgery + ID consults pending, may need IR drainage, 06/14- piperacillin-tazobactam + vancomycin, follow BCx + wound Cx hyperCa - resolved, was due to dehydration DM2 - correction-dose lipsor gout - allopurinol HLD - statin HTN - losartan [held for soft BP this AM] intermittent asthma - prn albuterol tobacco abuse - NRT, counseling mood disorder - clonidine, trazodone VTE ppx - SCDs dispo - TBD In my clinical judgment, the patient requires continued inpatient hospitalization for the following reasons: IV ABX Total time managing care of this patient today: 45 minutes. Quality Stroke Does the patient have a stroke diagnosis?: No Reason for No Anti-thrombotic by Day Two: Contraindicated VTE Prior VTE?: No VTE Risk Level:: Medical - moderate - high VTE Device Contraindication: N/A - Device Ordered VTE Drug Contraindication: Treatment Not Indicated
--- NOTE | 2025-06-15 15:14 | HO.NEUROPN_ITS ---
Neurosurgery Operative Note Date of Service: 06/15/25 Narrative: 54-year-old female known to Dr. Bull from L4-5 decompression surgery 3 months ago, who had postoperative infection about a month out from surgery, MRSA, treated with IV antibiotics, recently switched to Bactrim. She reports that as far back as 2 or 3 weeks ago even before she was switched to oral antibiotics she had an increase in pain in her back. She is also reporting some pain in her abdomen as well. She is having a lot of trouble getting out of bed, standing walking etc.. Did not report any trouble with weakness, numbness or bowel or bladder incontinence. Ultimately she went to the emergency room yesterday because of the increase in the pain, follow up MRI was done showing diskitis and osteomyelitis at L3-4 amongst other infectious findings in the soft tissues of the posterior spine as well as the psoas muscle on the left side. Neurosurgery was asked to consult. She has been restarted on vanco and Pip/tazo. Currently being seen by Dr. Bull and myself in the overflow area of the emergency room. There is no change from her symptoms yesterday. She is still having centralized diffuse back pain. Nothing radiating down the legs or lower extremities. Denies any fevers chills. Vital signs: She has been afebrile since she has been here, blood pressure in the upper 90s low 100s, 1 episode of tachycardia yesterday. Physical exam: She is awake alert oriented lying in bed, uncomfortable moving and turning but otherwise strength in the lower extremities is full. She has some pain with hip flexion. Back wound reveals about a nickel sized opening in her incision with no evidence of erythema or redness on the outside. There is small amount of leakage seen on the bandage that was placed by the nursing staff. Labs: White count was elevated to 15,000, down to 9 today. ESR 98, CRP 5. Lactic acid normal. Wound culture was taken was negative on the Gram stain, no organisms seen, final culture pending. The blood cultures taken yesterday in the emergency room pending. Lumbar MRI, shows the patient has what looks like worsening of osteomyelitis L3- 4 primarily with diskitis, there is some extension at L1 endplate as well with enhancement. There is a collection in the left psoas muscle which appears to be new. There is also a small subcutaneous collection in the posterior soft tissue of the spinal area near her incision. It looks smaller than the previous collection seen on her study back in April. Impression: 54-year-old female known to Dr. Bull from an L4-5 decompression 3 months ago, who had postoperative MRSA infection about a month after surgery, treated with IV antibiotics, recently switched to oral Bactrim, who has had escalation in her back pain, went to the emergency room, subsequent laboratory evaluation and MRI evaluation suggests that she has had a recurrence of her osteomyelitis/diskitis with imaging looking much worse in the L3-4 region and new psoas muscle abscess. The area of the posterior soft tissues where there was a collection back in April looks slightly smaller. There is no compression of the neural elements. Dr. Bull and I saw her together in the overflow area in the emergency room, her strength is good, and her wound just has a small opening with no active signs of infection. There is some small serous fluid that we saw leaking out of it, but no purulent material. We are not recommending any surgery, this can be treated medically with prolonged IV antibiotics. Recommend Infectious Disease consultation for timing and duration of antibiotics. Also would recommend wound care nurse to come in due packing on the spinal wound that is still open. Please call with any questions.
[2025-06-15 16:42] LABS: Glucose, Whole Blood 96 mg/dL (60-115)
[2025-06-15 20:58] LABS: Glucose, Whole Blood 116 mg/dL (60-115)
[2025-06-15 23:56] LABS: Glucose, Whole Blood 113 mg/dL (60-115)
[2025-06-16 03:58] VITALS: BP 125/71; PULSE 63; RESP 18; TEMP 36.9; O2SAT 95
--- NOTE | 2025-06-16 06:32 | PC.NURSE ---
Pt told this RN she is having pain in back of upper rt thigh. Says it is sharp and very painful. I notified MD Jose Nguyen of this pain.
[2025-06-16 07:14] LABS: Creatinine Clr Calc Pharmacy 89.2; Estimated Glomerular Filt Rate > 60
[2025-06-16 07:31] VITALS: BP 136/75; PULSE 60; RESP 14; TEMP 36.2; O2SAT 94
[2025-06-16 07:53] LABS: Glucose, Whole Blood 88 mg/dL (60-115)
[2025-06-16] MEDS: 0.9 % Sodium Chloride Flush 3 ML SYRINGE IVFLUSH (09:27)
--- NOTE | 2025-06-16 10:11 | HE.PHANOTE ---
RE: VANCO DOSING Trough came back as 16.4 mg/L, renal function is stable. Continue with dose of 1000 mg q12h, next trough is scheduled for 06/17/25 @0900.
--- NOTE | 2025-06-16 10:38 | P.PNIM_ITS ---
Subjective Subjective Date of Service: 06/16/25 Interval History: c/o back pain/weakness no fever; chills resolved Review of Systems Review of Systems: Yes all other systems are reviewed and are negative Physical Exam 2 Vital Signs: Vital Signs: Last Vital Signs Temp 97.2 F 06/16/25 07:31 Pulse 60 06/16/25 07:31 Resp 14 06/16/25 07:31 BP 136/75 06/16/25 07:31 Pulse Ox 94 06/16/25 07:31 O2 Del Method Room Air 06/16/25 07:31 O2 Flow Rate 2 06/15/25 03:19 BMI result Body Mass Index 35.4 Gen: in no acute distress HEENT: sclera anicteric, moist mucus membranes Neck: supple Lungs: clear to auscultation bilaterally Heart: regular rate and rhythm, no murmurs Abd: soft, non-tender, non-distended Ext: no edema Skin: warm/well-perfused, lumbar wound with scant serous drainage Neuro: alert and oriented x3, no focal findings Psych: appropriate affect Objective Data Active Medications Acetaminophen (Acetaminophen 325 Mg Tablet) 650 mg PO Q6H PRN PRN Reason: Pain, Mild 1-3,fever,headache Last Admin: 06/15/25 20:56 Dose: 650 mg Documented By: MARCIA Al Hydroxide/Mg Hydroxide (Magnesium Hydrox/Alum Hydrox 30 Ml Oral.Susp) 30 ml PO Q4H PRN PRN Reason: Heartburn Albuterol Sulfate (Albuterol Sulfate 90 Mcg 8 Gm Inhaler) 1 puff INHALE QID PRN PRN Reason: Shortness Of Breath Or Wheezing Albuterol/Ipratropium (Albuterol/Iprat 2.5/0.5mg 3 Ml Ampul.Neb) 3 ml INHALE Q4H PRN PRN Reason: Shortness of Breath/Wheezing Allopurinol (Allopurinol 100 Mg Tablet) 100 mg PO DAILY [facility] Last Admin: 06/16/25 09:26 Dose: 100 mg Documented By: LIZETH Atorvastatin Calcium (Atorvastatin Calcium 40 Mg Tablet) 40 mg PO DAILY [facility] Last Admin: 06/16/25 09:25 Dose: 40 mg Documented By: LIZETH Baclofen (Baclofen 10 Mg Tablet) 10 mg PO DAILY [facility] Last Admin: 06/16/25 09:26 Dose: 10 mg Documented By: LIZETH Calcium Carbonate (Calcium Carbonate 750 Mg Tab.Chew) 750 mg PO Q4H PRN PRN Reason: Heartburn Clonidine HCl (Clonidine Hcl 0.1 Mg Tablet) 0.3 mg PO BEDTIME [facility]; Protocol Last Admin: 06/15/25 20:56 Dose: 0.3 mg Documented By: MARCIA Cyanocobalamin (Cyanocobalamin (Vitamin B-12) 1,000 Mcg Tablet) 1,000 mcg PO DAILY [facility] Last Admin: 06/16/25 09:26 Dose: 1,000 mcg Documented By: LIZETH Dextrose (Dextrose 50 % 25 Gm/50 Ml Syringe) 25 gm IVPUSH Q15M PRN; Protocol PRN Reason: per Hypoglycemia Standing Ord. Glucose (Glucose Gel 15 Gm Gel..Gram.) 15 gm PO Q15M PRN; Protocol PRN Reason: per Hypoglycemia Standing Ord. Hydromorphone HCl (Hydromorphone Hcl 0.5 Mg/0.5 Ml Syringe) 0.5 mg IVPUSH Q3H PRN; Protocol PRN Reason: Pain, Severe (Pain Scale 7-10) Last Admin: 06/16/25 09:25 Dose: 0.5 mg Documented By: LIZETH Piperacillin Sod/Tazobactam (Sod 4.5 gm/ Sodium Chloride) 100 mls @ 200 mls/hr IV Q6H [facility] Last Infusion: 06/16/25 10:01 Dose: Infused Documented By: LIZETH Sodium Chloride (Ns) 1,000 mls @ 125 mls/hr IVCONT .Q8H [facility] Last Admin: 06/16/25 06:10 Dose: 125 mls/hr Documented By: MARCIA Vancomycin HCl 1,000 mg/ (Sodium Chloride) 270 mls @ 270 mls/hr IV Q12H [facility] Last Infusion: 06/16/25 00:19 Dose: Infused Documented By: MARCIA Insulin Human Lispro (Insulin Lispro 100 Unit/Ml 3 Ml Vial) 0 unit SUBCUT QIDACHS [facility]; Protocol Last Admin: 06/16/25 07:59 Dose: Not Given Documented By: LIZETH Non-Admin Reason: No Insulin Coverage Losartan Potassium (Losartan Potassium 50 Mg Tablet) 50 mg PO DAILY [facility]; Protocol Last Admin: 06/16/25 09:26 Dose: 50 mg Documented By: LIZETH Magnesium Hydroxide (Milk Of Magnesia 30 Ml Oral.Susp) 30 ml PO DAILY PRN PRN Reason: Constipation Magnesium Oxide (Magnesium Oxide 400 Mg Tablet) 400 mg PO DAILY [facility] Last Admin: 06/16/25 09:25 Dose: 400 mg Documented By: LIZETH Melatonin (Melatonin 3 Mg Tablet) 6 mg PO BEDTIME PRN PRN Reason: Insomnia Montelukast Sodium (Montelukast Sodium 10 Mg Tablet) 10 mg PO DAILY [facility] Last Admin: 06/16/25 09:26 Dose: 10 mg Documented By: LIZETH Multivitamins/Vitamin C (Multivitamin Tablet) 1 tab PO DAILY [facility] Last Admin: 06/16/25 09:26 Dose: 1 tab Documented By: LIZETH Nicotine (Nicotine 14 Mg Patch.Td24) 14 mg TRANSDERMA DAILY [facility] Last Admin: 06/16/25 09:29 Dose: Not Given Documented By: LIZETH Non-Admin Reason: Patient Refused Non-Formulary Medication (Ergotamine-Caffeine) 1 tab PO Q30M PRN PRN Reason: migraine headache Ondansetron HCl (Ondansetron Hcl 4 Mg/2 Ml Vial) 4 mg IVPUSH Q8H PRN PRN Reason: Nausea and Vomiting Pantoprazole Sodium (Pantoprazole Sodium 40 Mg/10 Ml Vial) 40 mg IVPUSH DAILY@0630 [facility] Last Admin: 06/16/25 06:07 Dose: 40 mg Documented By: MARCIA Pharmacy Consult (Consult Rx Vancomycin Dosing) 1 each MISCELLANE DAILY PRN PRN Reason: Consult order Polyethylene Glycol (Polyethylene Glycol 3350 17 Gm Powd.Pack) 17 gm PO DAILY PRN PRN Reason: Constipation Senna (Sennosides 8.6 Mg Tablet) 17.2 mg PO BEDTIME [facility] Last Admin: 06/15/25 20:57 Dose: 17.2 mg Documented By: MARCIA Sodium Chloride (0.9 % Sodium Chloride Flush 3 Ml Syringe) 3 ml IVFLUSH QSHIFT [facility] Last Admin: 06/16/25 09:27 Dose: 3 ml Documented By: LIZETH Trazodone HCl (Trazodone Hcl 100 Mg Tablet) 400 mg PO BEDTIME [facility] Last Admin: 06/15/25 20:57 Dose: 400 mg Documented By: MARCIA Labs 06/15/25 04:41 06/16/25 06:11 Labs: Laboratory Results - last 24 hr 06/15/25 06/15/25 06/15/25 11:56 12:16 16:29 Estim Creat Clear Calc Estimated GFR POC Glucose 82 96 Urine Color Yellow Urine Appearance Clear Urine pH 5.5 Ur Specific [place] 1.020 Urine Protein Negative Urine Glucose (UA) Negative Urine Ketones Negative Urine Blood Negative Urine Nitrite Negative Ur Leukocyte Esterase Trace H Urine RBC 0-2 Urine WBC 0-5 Ur Squamous Epith Cells 0-2 Urine Bacteria None Seen Hyaline Casts 0-2 Random Vancomycin 06/15/25 06/15/25 06/16/25 20:01 23:53 06:11 Estim Creat Clear Calc 89.2 Estimated GFR > 60 POC Glucose 116 H 113 Urine Color Urine Appearance Urine pH Ur Specific [place] Urine Protein Urine Glucose (UA) Urine Ketones Urine Blood Urine Nitrite Ur Leukocyte Esterase Urine RBC Urine WBC Ur Squamous Epith Cells Urine Bacteria Hyaline Casts Random Vancomycin 06/16/25 06/16/25 07:35 09:07 Estim Creat Clear Calc Estimated GFR POC Glucose 88 Urine Color Urine Appearance Urine pH Ur Specific [place] Urine Protein Urine Glucose (UA) Urine Ketones Urine Blood Urine Nitrite Ur Leukocyte Esterase Urine RBC Urine WBC Ur Squamous Epith Cells Urine Bacteria Hyaline Casts Random Vancomycin 16.4 Microbiology Microbiology Results: Microbiology 06/15/25 01:18 Gram Stain - Final Spine Routine Culture - Preliminary No growth to date. 06/14/25 20:58 Blood Culture - Preliminary Blood - Venous No growth after 24 hours. 06/14/25 20:58 Blood Culture - Preliminary Blood - Venous No growth after 24 hours. Assessment and Plan (1) Diskitis: Status: Acute Plan d3, 54yo F with L3-4, L4-5 spinal stenosis/lateral recess stenosis/neural foraminal stenosis, s/p right L3-4, L4-5 Laminotomy, Partial facetectomy and L5 foraminotomy 03/14/25 complicated by sepsis due to MRSA bacteremia due to diskitis, myositis, micro abscesses; treated with 8 wk of daptomycin with plan to transition to TMP-SMX x4 wk but sent in with worsening pain and cloudy drainage from lumbar wound. MRI with iliopsoas abscess, diskitis/osteomyelitis L1-L4, seroma vs abscess in midline of back. diskitis/osteomyelitis - Neurosurgery consulted, no operative intervention planned; per IR, psoas abscess is not amenable to drainage catheter, could consider FNA aspiration but yield likely to be low; ID consultation pending; 06/14- piperacillin-tazobactam + vancomycin, follow BCx + wound Cx hyperCa - resolved, was due to dehydration DM2 - A1c only 5.7, will d/c fingersticks and insulin gout - allopurinol HLD - statin HTN - losartan intermittent asthma - prn albuterol tobacco abuse - NRT, counseling mood disorder - clonidine, trazodone VTE ppx - enoxaparin dispo - PT consult pending In my clinical judgment, the patient requires continued inpatient hospitalization for the following reasons: IV ABX, ID consultation Total time managing care of this patient today: 35 minutes. Quality Stroke Does the patient have a stroke diagnosis?: No Reason for No Anti-thrombotic by Day Two: Contraindicated VTE Prior VTE?: No VTE Risk Level:: Medical - moderate - high VTE Device Contraindication: N/A - Device Ordered VTE Drug Contraindication: Treatment Not Indicated
[2025-06-16 11:38] LABS: Glucose, Whole Blood 162 mg/dL (60-115)
--- NOTE | 2025-06-16 12:33 | MHC.CM.PN ---
Per MD rounds an ID consult has been ordered and is pending. A PT eval has been ordered and attempted. Patient was not able to participate due to pain. DP Home resumption of [facility]. Patients son will provide transport home vs pending PT eval STR via BLS
--- NOTE | 2025-06-16 13:46 | HO.WOUND ---
Wound Consult: Initial 54yr old female admitted to [facility] on [place]14[facility]25 - See progress notes and H&P for detailed history.? Wound consult placed for Lumbar surgical site dehiscence.? Per Provider request to assess for need for packing and topical recommendations. Patient was last seen in March by this communications writer for the same wound to her lumbar area. Patient agreeable to assessment and photo documentation.? At [facility] patient and report she continues to have daily or every other day dressing completed by VNA or her . She reports adequate blood sugar control - she is unsure of her AIC. She was asked about her smoking - she reports she continued to smoke 1/2pk per day. We discussed her desire for smoking cessation and she reports she does not wish to quit. She and he were educated on the impacts active smoking has to wound healing. She reports no prior knowledge of this - she reports she has tried nicotine patches in the past but they were not strong enough. She was advised to stop or at the very least decrease her smoking in an effort to heal her chronic wound. Discussed with direct care nurse as well to educate and advocate for smoking cessation as well. Of note during chart review it was noted staff was documented on a PI to her coccyx - she was agreeable to this assessment as well and she and her report they are treating with barrier cream at home and she has had for approximately one month - see below for detailed assessment. Lumbar Area Etiology: ?Dehiscence Surgical Site ? Measurements: 2.5cm x 1cm x 3cm with a tunnel at 12 o'clock max depth of 4cm with gentle probing Wound Bed: area that is visible is moist pink with then veil of yellow slough Drainage / Odor: No odor noted - no drainage noted at the time of my assessment Edges: ? rolled and hyperpigmented Sonia wound: Intact no erythema,? No Induration, Fluctuance or Warmth noted Pain: mild tenderness reported when packed Goals of Treatment: ? Light packing to aid in moisture management and allow for moist wound healing Coccyx Etiology: ?Unstageable Pressure injury POA Measurements: 3cm x 1.4cm x 0.2 Wound Bed: adherent yellow slough - granulation buds noted Drainage / Odor: No odor noted - no drainge noted at the time of my assessment Edges: ? Irregular and hyperpigmented Sonia wound: MASD? No Induration, Fluctuance or Warmth noted Pain: mild pain reported when cleansed Goals of Treatment: ? Triad for autolytic debridement Recommendations: 1. Turn and Reposition every 2 hours and as needed for patient comfort.? Use pillows or wedges to support off loading positions. 2. Off Load all bony prominences with use of pillows and heel boots if needed.? Apply Preventative foams where needed. ? 3. Monitor for incontinence and moisture control, use barrier creams when needed for prevention and treatment. 4. Provide adequate and supplemental nutrition.? 5. Order low air loss mattress. 6. When applicable maintain blood glucose levels per Providers order. Lumbar Back - Gently cleanse with NS moist gauze, Pat dry.? Apply skin prep barrier to periwound, lightly pack with Durafiber AG, (Spiral cut the sheet into one piece) be sure to leave a wick for easy removal.? Cover with dry gauze and ABD Pad dressing.? Change Daily while inpatient. Off Load Pressure with Q2 hr turns and use of pillows when in bed. Coccyx - Off Load Pressure with Q2 hr turns and use of pillows - Cleanse with PH balance spray or wipes, pat dry. ?Apply thin layer of Triad to wound bed. Do not remove all of paste between applications as this may cause further skin damage.? Cover with foam dressing to aid in off loading and protection from friction. Change every 3 days and PRN. Re-consult wound care Nurse for wound deterioration or wound changes.
[2025-06-16 14:52] VITALS: BP 136/75; PULSE 60; O2SAT 94
[2025-06-16 15:18] LABS: Calcium, Ionized 5.8 mg/dL (4.7-5.5)
[2025-06-16 15:21] VITALS: BP 112/60; PULSE 69; RESP 18; TEMP 36.2; O2SAT 95
[2025-06-16 19:36] VITALS: BP 121/67; PULSE 69; RESP 18; TEMP 36.1; O2SAT 95
[2025-06-16 19:53] LABS: Glucose, Whole Blood 149 mg/dL (60-115)
[2025-06-17 03:50] VITALS: BP 122/71; PULSE 64; RESP 18; TEMP 36.3; O2SAT 97
[2025-06-17 06:15] VITALS: RESP 16
[2025-06-17 07:40] LABS: Glucose, Whole Blood 106 mg/dL (60-115)
[2025-06-17 07:46] VITALS: BP 128/61; PULSE 66; RESP 18; TEMP 36.4; O2SAT 95
[2025-06-17] MEDS: 0.9 % Sodium Chloride Flush 3 ML SYRINGE IVFLUSH ×3 (08:14→20:44)
[2025-06-17 09:22] LABS: Hematocrit 27.8 % (37.0-47.0); Hemoglobin 9.0 g/dl (12.0-16.0); Mean Corpuscular HGB Conc 32.4 g/dl (31.0-35.0); Mean Corpuscular Hemoglobin 27.9 pg (27.0-33.0); Mean Corpuscular Volume 86.1 fL (80.0-98.0); NRBC Abs Auto 0.000 X10*3/uL (0.0-0.012); NRBC Pct Auto 0.0 /100WBC (0.0-0.2); Platelet Count 373 X10*3/uL (160-400); Red Blood Count 3.23 X10*6/uL (4.20-5.50); White Blood Count 5.9 X10*3/uL (4.8-10.8)
[2025-06-17 09:29] LABS: Creatinine Clr Calc Pharmacy 101.0; Estimated Glomerular Filt Rate > 60
--- NOTE | 2025-06-17 10:03 | HE.PHANOTE ---
Vancomycin addendum: Level came back at 17.9, a bit on higher end but also treating bone infection. Will keep current dose and regimen and recheck a level rahul morning. If furhter increases will decrease dose
--- NOTE | 2025-06-17 11:18 | P.PNIM_ITS ---
Subjective Subjective Date of Service: 06/17/25 Interval History: no fever c/o weakness, back pain c/o L knee pain Review of Systems Review of Systems: Yes all other systems are reviewed and are negative Physical Exam 2 Vital Signs: Vital Signs: Last Vital Signs Temp 97.6 F 06/17/25 07:46 Pulse 66 06/17/25 07:46 Resp 18 06/17/25 07:46 BP 128/61 06/17/25 07:46 Pulse Ox 95 06/17/25 07:46 O2 Del Method Room Air 06/17/25 07:46 O2 Flow Rate 2 06/15/25 03:19 BMI result Body Mass Index 35.4 Gen: in no acute distress HEENT: sclera anicteric, moist mucus membranes Neck: supple Lungs: clear to auscultation bilaterally Heart: regular rate and rhythm, no murmurs Abd: soft, non-tender, non-distended Ext: no edema Skin: warm/well-perfused, lumbar wound with scant serous drainage Neuro: alert and oriented x3, no focal findings Psych: appropriate affect Objective Data Active Medications Acetaminophen (Acetaminophen 325 Mg Tablet) 650 mg PO Q6H PRN PRN Reason: Pain, Mild 1-3,fever,headache Last Admin: 06/17/25 00:19 Dose: 650 mg Documented By: MARCIA Al Hydroxide/Mg Hydroxide (Magnesium Hydrox/Alum Hydrox 30 Ml Oral.Susp) 30 ml PO Q4H PRN PRN Reason: Heartburn Albuterol Sulfate (Albuterol Sulfate 90 Mcg 8 Gm Inhaler) 1 puff INHALE QID PRN PRN Reason: Shortness Of Breath Or Wheezing Albuterol/Ipratropium (Albuterol/Iprat 2.5/0.5mg 3 Ml Ampul.Neb) 3 ml INHALE Q4H PRN PRN Reason: Shortness of Breath/Wheezing Allopurinol (Allopurinol 100 Mg Tablet) 100 mg PO DAILY ON LICENSE OF [facility] Last Admin: 06/17/25 08:13 Dose: 100 mg Documented By: DENY Atorvastatin Calcium (Atorvastatin Calcium 40 Mg Tablet) 40 mg PO DAILY ON LICENSE OF [facility] Last Admin: 06/17/25 08:13 Dose: 40 mg Documented By: DENY Baclofen (Baclofen 10 Mg Tablet) 10 mg PO DAILY ON LICENSE OF [facility] Last Admin: 06/17/25 08:14 Dose: 10 mg Documented By: DENY Calcium Carbonate (Calcium Carbonate 750 Mg Tab.Chew) 750 mg PO Q4H PRN PRN Reason: Heartburn Clonidine HCl (Clonidine Hcl 0.1 Mg Tablet) 0.3 mg PO BEDTIME ON LICENSE OF [facility]; Protocol Last Admin: 06/16/25 20:51 Dose: 0.3 mg Documented By: MARCIA Cyanocobalamin (Cyanocobalamin (Vitamin B-12) 1,000 Mcg Tablet) 1,000 mcg PO DAILY ON LICENSE OF [facility] Last Admin: 06/17/25 08:13 Dose: 1,000 mcg Documented By: DENY Enoxaparin Sodium (Enoxaparin Sodium 40 Mg/0.4 Ml Syringe) 40 mg SUBCUT Q24H ON LICENSE OF [facility] Last Admin: 06/16/25 11:26 Dose: 40 mg Documented By: LIZETH Hydromorphone HCl (Hydromorphone Hcl 0.5 Mg/0.5 Ml Syringe) 0.75 mg IVPUSH Q3H PRN; Protocol PRN Reason: Pain, Severe (Pain Scale 7-10) Last Admin: 06/17/25 10:04 Dose: 0.75 mg Documented By: DENY Comments: delay due to new IV access needed Piperacillin Sod/Tazobactam (Sod 4.5 gm/ Sodium Chloride) 100 mls @ 200 mls/hr IV Q6H ON LICENSE OF [facility] Last Infusion: 06/17/25 09:20 Dose: Infused Documented By: DENY Vancomycin HCl 1,000 mg/ (Sodium Chloride) 270 mls @ 270 mls/hr IV Q12H ON LICENSE OF [facility] Last Infusion: 06/17/25 00:11 Dose: Infused Documented By: MARCIA Losartan Potassium (Losartan Potassium 50 Mg Tablet) 50 mg PO DAILY ON LICENSE OF [facility]; Protocol Last Admin: 06/17/25 08:13 Dose: 50 mg Documented By: DENY Magnesium Hydroxide (Milk Of Magnesia 30 Ml Oral.Susp) 30 ml PO DAILY PRN PRN Reason: Constipation Magnesium Oxide (Magnesium Oxide 400 Mg Tablet) 400 mg PO DAILY ON LICENSE OF [facility] Last Admin: 06/17/25 08:13 Dose: 400 mg Documented By: DENY Melatonin (Melatonin 3 Mg Tablet) 6 mg PO BEDTIME PRN PRN Reason: Insomnia Montelukast Sodium (Montelukast Sodium 10 Mg Tablet) 10 mg PO DAILY ON LICENSE OF [facility] Last Admin: 06/17/25 08:13 Dose: 10 mg Documented By: DENY Multivitamins/Vitamin C (Multivitamin Tablet) 1 tab PO DAILY ON LICENSE OF [facility] Last Admin: 06/17/25 08:13 Dose: 1 tab Documented By: DENY Nicotine (Nicotine 14 Mg Patch.Td24) 14 mg TRANSDERMA DAILY ON LICENSE OF [facility] Last Admin: 06/17/25 08:25 Dose: Not Given Documented By: DENY Non-Admin Reason: Patient Refused Non-Formulary Medication (Ergotamine-Caffeine) 1 tab PO Q30M PRN PRN Reason: migraine headache Ondansetron HCl (Ondansetron Hcl 4 Mg/2 Ml Vial) 4 mg IVPUSH Q8H PRN PRN Reason: Nausea and Vomiting Oxycodone HCl (Oxycodone Hcl Immed Release 5 Mg Tablet) 5 mg PO Q4H PRN PRN Reason: Pain, Moderate(Pain Scale 4-6) Pantoprazole Sodium (Pantoprazole Sodium 40 Mg/10 Ml Vial) 40 mg IVPUSH DAILY@0630 ON LICENSE OF [facility] Last Admin: 06/17/25 05:43 Dose: 40 mg Documented By: MARCIA Pharmacy Consult (Consult Rx Vancomycin Dosing) 1 each MISCELLANE DAILY PRN PRN Reason: Consult order Polyethylene Glycol (Polyethylene Glycol 3350 17 Gm Powd.Pack) 17 gm PO DAILY PRN PRN Reason: Constipation Senna (Sennosides 8.6 Mg Tablet) 17.2 mg PO BEDTIME ON LICENSE OF [facility] Last Admin: 06/16/25 20:51 Dose: 17.2 mg Documented By: MARCIA Sodium Chloride (0.9 % Sodium Chloride Flush 3 Ml Syringe) 3 ml IVFLUSH QSHIFT ON LICENSE OF [facility] Last Admin: 06/17/25 08:14 Dose: 3 ml Documented By: DENY Trazodone HCl (Trazodone Hcl 100 Mg Tablet) 400 mg PO BEDTIME ON LICENSE OF [facility] Last Admin: 06/16/25 20:51 Dose: 400 mg Documented By: MARCIA Labs 06/17/25 08:59 06/17/25 08:59 Labs: Laboratory Results - last 24 hr 06/15/25 06/16/25 06/16/25 04:41 11:23 19:44 MCV MCH MCHC RDW Plt Count MPV Absolute Nucleated RBC Nucleated RBC % (auto) Estim Creat Clear Calc Estimated GFR POC Glucose 162 H 149 H Ionized Calcium 5.8 H Random Vancomycin 06/17/25 06/17/25 07:17 08:59 MCV 86.1 MCH 27.9 MCHC 32.4 RDW 15.0 Plt Count 373 MPV 8.2 L Absolute Nucleated RBC 0.000 Nucleated RBC % (auto) 0.0 Estim Creat Clear Calc 101.0 Estimated GFR > 60 POC Glucose 106 Ionized Calcium Random Vancomycin 17.9 Microbiology Microbiology Results: Microbiology 06/15/25 01:18 Gram Stain - Final Spine Routine Culture - Preliminary No growth to date. 06/14/25 20:58 Blood Culture - Preliminary Blood - Venous No growth after 48 hours. 06/14/25 20:58 Blood Culture - Preliminary Blood - Venous No growth after 48 hours. Assessment and Plan (1) Diskitis: Status: Acute Plan d4, 54yo F with L3-4, L4-5 spinal stenosis/lateral recess stenosis/neural foraminal stenosis, s/p right L3-4, L4-5 Laminotomy, Partial facetectomy and L5 foraminotomy 03/14/25 complicated by sepsis due to MRSA bacteremia due to diskitis, myositis, micro abscesses; treated with 8 wk of daptomycin with plan to transition to TMP-SMX x4 wk but sent in with worsening pain and cloudy drainage from lumbar wound. MRI with iliopsoas abscess, diskitis/osteomyelitis L1-L4, seroma vs abscess in midline of back. diskitis/osteomyelitis - Neurosurgery consulted, no operative intervention planned; per IR, psoas abscess is not amenable to drainage catheter, could consider FNA aspiration but yield likely to be low; ID consultation pending; 06/14- piperacillin-tazobactam + vancomycin, BCx negative and wound Cx no growth to date; suspect will need PICC line for IV vancomycin - Wound Care: Lumbar Back - Gently cleanse with NS moist gauze, Pat dry.? Apply skin prep barrier to periwound, lightly pack with Durafiber AG, (Spiral cut the sheet into one piece) be sure to leave a wick for easy removal.? Cover with dry gauze and ABD Pad dressing.? Change Daily while inpatient. Off Load Pressure with Q2 hr turns and use of pillows when in bed. Coccyx - Off Load Pressure with Q2 hr turns and use of pillows - Cleanse with PH balance spray or wipes, pat dry. ?Apply thin layer of Triad to wound bed. Do not remove all of paste between applications as this may cause further skin damage.? Cover with foam dressing to aid in off loading and protection from friction. Change every 3 days and PRN. hyperCa - resolved, was due to dehydration DM2 - A1c only 5.7, no longer needs fingersticks and insulin gout - allopurinol HLD - statin HTN - losartan intermittent asthma - prn albuterol tobacco abuse - NRT, counseling mood disorder - clonidine, trazodone VTE ppx - enoxaparin dispo - PT consulted: STR In my clinical judgment, the patient requires continued inpatient hospitalization for the following reasons: IV ABX, ID consultation Total time managing care of this patient today: 35 minutes. Quality Stroke Does the patient have a stroke diagnosis?: No Reason for No Anti-thrombotic by Day Two: Contraindicated VTE Prior VTE?: No VTE Risk Level:: Medical - moderate - high VTE Device Contraindication: N/A - Device Ordered VTE Drug Contraindication: Treatment Not Indicated
[2025-06-17 11:40] LABS: Glucose, Whole Blood 106 mg/dL (60-115)
[2025-06-17] MEDS: oxyCODONE HCl Immed Release 5 MG TABLET PO ×2 (12:45→21:20)
--- NOTE | 2025-06-17 14:35 | HO.SKINPHOTO ---
Location: Lumbar dressing changed - packed aquacel ag removed. Cleaned with normal saline, pat dry, packed with aquacel ag, gauze, abd, tape. Coccyx foam dressing remains in place. Patient crying throughout dressing change, PRN Dilaudid administered.
[2025-06-17 15:22] VITALS: BP 119/72; PULSE 66; RESP 18; TEMP 36.4; O2SAT 100
--- NOTE | 2025-06-17 15:40 | PC.NURSE ---
Sat patient on edge of bed to perform dressing change, patient crying out, PRN medication administered per MAR. Patient encouraged to get up in chair but refused due to pain in back and knee. Patient educated regarding the importance of getting up, repositioning and getting up to bedside commode. Will continue to encourage patient to get up out of bed. Patient's mattress at this time is not compatible with airloss device, patient educated regarding this and need to get up to change mattress out, pt refused, will attempt at a later time.
[2025-06-17 19:41] VITALS: BP 134/70; PULSE 71; RESP 18; TEMP 36.6; O2SAT 95
--- NOTE | 2025-06-17 22:57 | P.CNID_ITS ---
History of Present Illness Data of Consult Service Date: 06/16/25 Requesting physician: Chris Yanez Primary Care Provider: Festus Lang PA-C HPI Reason for consult: left iliopsoas abscess She presents with moderate back pain. There is no increase in skin drainage from postop site. She has small 2.8 cm iliopsoas abscess. There is no bacteremia. MRI shows osteomyelitis. Review of Systems 2 Review of Systems: Yes all other systems are reviewed and are negative PMFSH Past Medical History Medical History MRSA (methicillin resistant Staphylococcus aureus) infection Anemia Anxiety MDD (major depressive disorder) Gout GERD (gastroesophageal reflux disease) Ambulates with cane Smoker Hyperuricemia Asthma Obese Osteoarthritis Trigger finger Carpal tunnel syndrome Hyperlipidemia LDL goal <100 Essential hypertension Hyperlipidemia Cellulitis, umbilical Family History Family History Father Diabetes Hypertension Stroke Heart attack, Onset Age: 50 Mother Multiple sclerosis Brother In good health Son In good health Son In good health Other Patient denies medical problems Family history: reviewed and not pertinent Surgical History Surgical History History of esophagogastroduodenoscopy (EGD) Hx of colonoscopy History of laparoscopic appendectomy History of foot surgery History of carpal tunnel release H/O: hysterectomy Social History Social History Household Members: Spouse and Children Housing: Apartment Are you a primary care associate to a significant other at home: No Do you presently have visiting nurse or other home services: Yes ([facility]NA) Alcohol intake: current Alcohol intake frequency: holidays/special occasions only Alcohol type: beer Patient Tobacco Use Status: Current everyday Tobacco user Tobacco use type: Cigarette Cigarette Packs Per Day: 0.5 Cigarettes Per Day: 10.0 Years Smoked: 46 e-Cigarette/Vaping Use: Never Used Second Hand Smoke Exposure: Yes service: No Current occupational status: disabled Cognitive needs: No Hearing needs: No Vision needs: Yes (glasses) Travel History Ebola Risk: Travel/Contact With Anyone From Affected Area/s: No Has Patient Experienced Ebola Symptoms: No Meds Allergies Allergy/AdvReac Type Severity Reaction Status Date / Time gabapentin Allergy Intermediate Nausea and Verified 06/14/25 15:31 Vomiting morphine (Morphine) Allergy Intermediate VOMITING Verified 06/14/25 15:31 oxycodone (Percocet) Allergy Intermediate Vomiting Verified 06/14/25 15:31 methocarbamol AdvReac Intermediate GI upset Verified 06/14/25 15:31 Active Medications: Current Medications Acetaminophen (Acetaminophen 325 Mg Tablet) 650 mg PO Q6H PRN PRN Reason: Pain, Mild 1-3,fever,headache Last Admin: 06/17/25 00:19 Dose: 650 mg Al Hydroxide/Mg Hydroxide (Magnesium Hydrox/Alum Hydrox 30 Ml Oral.Susp) 30 ml PO Q4H PRN PRN Reason: Heartburn Albuterol Sulfate (Albuterol Sulfate 90 Mcg 8 Gm Inhaler) 1 puff INHALE QID PRN PRN Reason: Shortness Of Breath Or Wheezing Albuterol/Ipratropium (Albuterol/Iprat 2.5/0.5mg 3 Ml Ampul.Neb) 3 ml INHALE Q4H PRN PRN Reason: Shortness of Breath/Wheezing Allopurinol (Allopurinol 100 Mg Tablet) 100 mg PO DAILY [facility] Last Admin: 06/17/25 08:13 Dose: 100 mg Atorvastatin Calcium (Atorvastatin Calcium 40 Mg Tablet) 40 mg PO DAILY [facility] Last Admin: 06/17/25 08:13 Dose: 40 mg Baclofen (Baclofen 10 Mg Tablet) 10 mg PO DAILY [facility] Last Admin: 06/17/25 08:14 Dose: 10 mg Calcium Carbonate (Calcium Carbonate 750 Mg Tab.Chew) 750 mg PO Q4H PRN PRN Reason: Heartburn Clonidine HCl (Clonidine Hcl 0.1 Mg Tablet) 0.3 mg PO BEDTIME [facility]; Protocol Last Admin: 06/17/25 20:37 Dose: 0.3 mg Cyanocobalamin (Cyanocobalamin (Vitamin B-12) 1,000 Mcg Tablet) 1,000 mcg PO DAILY [facility] Last Admin: 06/17/25 08:13 Dose: 1,000 mcg Enoxaparin Sodium (Enoxaparin Sodium 40 Mg/0.4 Ml Syringe) 40 mg SUBCUT Q24H [facility] Last Admin: 06/17/25 11:32 Dose: 40 mg Hydromorphone HCl (Hydromorphone Hcl 0.5 Mg/0.5 Ml Syringe) 0.75 mg IVPUSH Q3H PRN; Protocol PRN Reason: Pain, Severe (Pain Scale 7-10) Last Admin: 06/17/25 18:39 Dose: 0.75 mg Piperacillin Sod/Tazobactam (Sod 4.5 gm/ Sodium Chloride) 100 mls @ 200 mls/hr IV Q6H [facility] Last Infusion: 06/17/25 21:20 Dose: Infused Vancomycin HCl 1,000 mg/ (Sodium Chloride) 270 mls @ 270 mls/hr IV Q12H [facility] Last Infusion: 06/17/25 12:39 Dose: Infused Losartan Potassium (Losartan Potassium 50 Mg Tablet) 50 mg PO DAILY [facility]; Protocol Last Admin: 06/17/25 08:13 Dose: 50 mg Magnesium Hydroxide (Milk Of Magnesia 30 Ml Oral.Susp) 30 ml PO DAILY PRN PRN Reason: Constipation Magnesium Oxide (Magnesium Oxide 400 Mg Tablet) 400 mg PO DAILY [facility] Last Admin: 06/17/25 08:13 Dose: 400 mg Melatonin (Melatonin 3 Mg Tablet) 6 mg PO BEDTIME PRN PRN Reason: Insomnia Montelukast Sodium (Montelukast Sodium 10 Mg Tablet) 10 mg PO DAILY [facility] Last Admin: 06/17/25 08:13 Dose: 10 mg Multivitamins/Vitamin C (Multivitamin Tablet) 1 tab PO DAILY [facility] Last Admin: 06/17/25 08:13 Dose: 1 tab Nicotine (Nicotine 14 Mg Patch.Td24) 14 mg TRANSDERMA DAILY [facility] Last Admin: 06/17/25 08:25 Dose: Not Given Non-Formulary Medication (Ergotamine-Caffeine) 1 tab PO Q30M PRN PRN Reason: migraine headache Ondansetron HCl (Ondansetron Hcl 4 Mg/2 Ml Vial) 4 mg IVPUSH Q8H PRN PRN Reason: Nausea and Vomiting Oxycodone HCl (Oxycodone Hcl Immed Release 5 Mg Tablet) 5 mg PO Q4H PRN PRN Reason: Pain, Moderate(Pain Scale 4-6) Last Admin: 06/17/25 21:20 Dose: 5 mg Pantoprazole Sodium (Pantoprazole Sodium 40 Mg/10 Ml Vial) 40 mg IVPUSH DAILY@0630 [facility] Last Admin: 06/17/25 05:43 Dose: 40 mg Pharmacy Consult (Consult Rx Vancomycin Dosing) 1 each MISCELLANE DAILY PRN PRN Reason: Consult order Polyethylene Glycol (Polyethylene Glycol 3350 17 Gm Powd.Pack) 17 gm PO DAILY PRN PRN Reason: Constipation Senna (Sennosides 8.6 Mg Tablet) 17.2 mg PO BEDTIME [facility] Last Admin: 06/17/25 20:36 Dose: 17.2 mg Sodium Chloride (0.9 % Sodium Chloride Flush 3 Ml Syringe) 3 ml IVFLUSH QSHIFT [facility] Last Admin: 06/17/25 20:44 Dose: 3 ml Trazodone HCl (Trazodone Hcl 100 Mg Tablet) 400 mg PO BEDTIME [facility] Last Admin: 06/17/25 20:37 Dose: 400 mg Home Medications ?Medication ?Instructions ?Recorded ?Confirmed ?Last Taken ?Type multivitamin 1 tab PO DAILY 07/31/2201/0306/14/25 History omega-3 fatty acids 500 mg capsule 500 mg PO DAILY 06/14/25 06/14/25 History baclofen 10 mg tablet 10 mg PO BID PRN Muscle Spas m 04/08/25 06/14/25 06/14/25 History albuterol sulfate 90 mcg/actuation 1 puff inhalation Q ID PRN 06/14/25 06/14/25 Unknown History aerosol inhaler Shortness Of Breath Or Wheez ing pantoprazole 40 mg tablet,delayed 40 mg PO DAILY@0630 06/14/25 06/14/25 06/14/25 History release Physical Exam 2 Vital Signs: Vital Signs: Last Vital Signs Temp 97.9 F 06/17/25 19:41 Pulse 71 06/17/25 19:41 Resp 18 06/17/25 19:41 BP 134/70 06/17/25 19:41 Pulse Ox 95 06/17/25 19:41 O2 Del Method Room Air 06/17/25 19:41 O2 Flow Rate 2 06/15/25 03:19 BMI result Body Mass Index 35.4 Const: General: cooperative HEENT: Head: Yes normal to inspection Face and sinus: Yes normal facial exam Mouth: Normal oral and palatal mucosa present Teeth and gingiva: d entition normal Eyes: General: appearance normal, both eyes and all related structures P upils: Equal, round and reactive pupils present Resp: Effort & Inspection: normal respiratory effort Cardio: Rate: regular rate Rhythm: regular rhythm GI: Palpation (GI): Soft to palpation and nontender : General: Yes no CVA tenderness Back/Spine/Pelvis: Other: spinal area clearing Back: no CVA tenderness Skin: General skin exam: no rashes or lesions noted Neuro: General: moves all extremities Cranial nerves: Yes Equal, round and reactive pupils present Extrem: General: Yes normal to inspection Psych: Appearance: grossly normal Results Labs 06/17/25 08:59 06/17/25 08:59 Labs: Short CBC 06/17/25 Range/Units 08:59 WBC 5.9 (4.8-10.8) X10*3/uL Hgb 9.0 L (12.0-16.0) g/dl Hct 27.8 L (37.0-47.0) % Plt Count 373 (160-400) X10*3/uL BMP 06/17/25 08:59 Creatinine 0.68 Microbiology Microbiology Results: Microbiology 06/15/25 01:18 Spine Gram Stain - Final 06/15/25 01:18 Spine Routine Culture - Preliminary No growth to date. 06/14/25 20:58 Blood - Venous Blood Culture - Preliminary No growth after 48 hours. 06/14/25 20:58 Blood - Venous Blood Culture - Preliminary No growth after 48 hours. Assessment and Plan (1) Iliopsoas abscess: Status: Acute Plan The abscess is small (under 4 cm) and no bacteremia. The OM will look more destructive on repeat MRI since bone remodeling occurs and MRI more complex changes doesnt mean infection worse necessarily Inflammatory markers can be elevated for some time. This is likely MRSA. Can try additional IV treatment with six weeks IV Vancomycin Superficial swab of wound not useful.
[2025-06-18 03:35] VITALS: BP 126/68; PULSE 63; RESP 18; TEMP 37.1; O2SAT 95
[2025-06-18] MEDS: oxyCODONE HCl Immed Release 5 MG TABLET PO ×2 (05:45→19:33)
[2025-06-18 07:39] VITALS: BP 129/85; PULSE 67; RESP 18; TEMP 36.6; O2SAT 94
[2025-06-18] MEDS: 0.9 % Sodium Chloride Flush 3 ML SYRINGE IVFLUSH ×3 (08:11→20:45)
[2025-06-18 10:18] LABS: Creatinine Clr Calc Pharmacy 96.7; Estimated Glomerular Filt Rate > 60
--- NOTE | 2025-06-18 10:36 | HO.PM.IMPN ---
Subjective Subjective Date of Service: 06/18/25 Interval History: c/o back pain, R leg numbness since before surgery; no chills, no fever Review of Systems Review of Systems: Yes all other systems are reviewed and are negative Physical Exam Vital Signs: Vital Signs: Last Vital Signs Temp 97.8 F 06/18/25 07:39 Pulse 67 06/18/25 07:39 Resp 18 06/18/25 07:39 BP 129/85 06/18/25 07:39 Pulse Ox 94 06/18/25 07:39 O2 Del Method Room Air 06/18/25 07:39 O2 Flow Rate 2 06/15/25 03:19 BMI result Body Mass Index 35.4 Gen: in no acute distress HEENT: sclera anicteric, moist mucus membranes Neck: supple Lungs: clear to auscultation bilaterally Heart: regular rate and rhythm, no murmurs Abd: soft, non-tender, non-distended Ext: no edema Skin: warm/well-perfused, lumbar wound with scant serous drainage Neuro: alert and oriented x3, no focal findings Psych: appropriate affect Objective Data Active Medications Acetaminophen (Acetaminophen 325 Mg Tablet) 650 mg PO Q6H PRN PRN Reason: Pain, Mild 1-3,fever,headache Last Admin: 06/18/25 08:11 Dose: 650 mg Documented By: DENY Al Hydroxide/Mg Hydroxide (Magnesium Hydrox/Alum Hydrox 30 Ml Oral.Susp) 30 ml PO Q4H PRN PRN Reason: Heartburn Albuterol Sulfate (Albuterol Sulfate 90 Mcg 8 Gm Inhaler) 1 puff INHALE QID PRN PRN Reason: Shortness Of Breath Or Wheezing Albuterol/Ipratropium (Albuterol/Iprat 2.5/0.5mg 3 Ml Ampul.Neb) 3 ml INHALE Q4H PRN PRN Reason: Shortness of Breath/Wheezing Allopurinol (Allopurinol 100 Mg Tablet) 100 mg PO DAILY [facility] Last Admin: 06/18/25 08:11 Dose: 100 mg Documented By: DENY Atorvastatin Calcium (Atorvastatin Calcium 40 Mg Tablet) 40 mg PO DAILY [facility] Last Admin: 06/18/25 08:10 Dose: 40 mg Documented By: DENY Baclofen (Baclofen 10 Mg Tablet) 10 mg PO DAILY [facility] Last Admin: 06/18/25 08:10 Dose: 10 mg Documented By: DENY Calcium Carbonate (Calcium Carbonate 750 Mg Tab.Chew) 750 mg PO Q4H PRN PRN Reason: Heartburn Clonidine HCl (Clonidine Hcl 0.1 Mg Tablet) 0.3 mg PO BEDTIME [facility]; Protocol Last Admin: 06/17/25 20:37 Dose: 0.3 mg Documented By: MARCIA Cyanocobalamin (Cyanocobalamin (Vitamin B-12) 1,000 Mcg Tablet) 1,000 mcg PO DAILY [facility] Last Admin: 06/18/25 08:10 Dose: 1,000 mcg Documented By: DENY Enoxaparin Sodium (Enoxaparin Sodium 40 Mg/0.4 Ml Syringe) 40 mg SUBCUT Q24H [facility] Last Admin: 06/17/25 11:32 Dose: 40 mg Documented By: DENY Hydromorphone HCl (Hydromorphone Hcl 0.5 Mg/0.5 Ml Syringe) 0.75 mg IVPUSH Q3H PRN; Protocol PRN Reason: Pain, Severe (Pain Scale 7-10) Last Admin: 06/18/25 09:42 Dose: 0.75 mg Documented By: DENY Piperacillin Sod/Tazobactam (Sod 4.5 gm/ Sodium Chloride) 100 mls @ 200 mls/hr IV Q6H [facility] Last Infusion: 06/18/25 08:56 Dose: Infused Documented By: DENY Vancomycin HCl 1,000 mg/ (Sodium Chloride) 270 mls @ 270 mls/hr IV Q12H [facility] Last Infusion: 06/18/25 00:11 Dose: Infused Documented By: MARCIA Losartan Potassium (Losartan Potassium 50 Mg Tablet) 50 mg PO DAILY [facility]; Protocol Last Admin: 06/18/25 08:11 Dose: 50 mg Documented By: DENY Magnesium Hydroxide (Milk Of Magnesia 30 Ml Oral.Susp) 30 ml PO DAILY PRN PRN Reason: Constipation Magnesium Oxide (Magnesium Oxide 400 Mg Tablet) 400 mg PO DAILY [facility] Last Admin: 06/18/25 08:10 Dose: 400 mg Documented By: DENY Melatonin (Melatonin 3 Mg Tablet) 6 mg PO BEDTIME PRN PRN Reason: Insomnia Montelukast Sodium (Montelukast Sodium 10 Mg Tablet) 10 mg PO DAILY [facility] Last Admin: 06/18/25 08:10 Dose: 10 mg Documented By: DENY Multivitamins/Vitamin C (Multivitamin Tablet) 1 tab PO DAILY [facility] Last Admin: 06/18/25 08:10 Dose: 1 tab Documented By: DENY Nicotine (Nicotine 14 Mg Patch.Td24) 14 mg TRANSDERMA DAILY [facility] Last Admin: 06/18/25 08:57 Dose: Not Given Documented By: DENY Non-Admin Reason: Patient Refused Non-Formulary Medication (Ergotamine-Caffeine) 1 tab PO Q30M PRN PRN Reason: migraine headache Ondansetron HCl (Ondansetron Hcl 4 Mg/2 Ml Vial) 4 mg IVPUSH Q8H PRN PRN Reason: Nausea and Vomiting Oxycodone HCl (Oxycodone Hcl Immed Release 5 Mg Tablet) 5 mg PO Q4H PRN PRN Reason: Pain, Moderate(Pain Scale 4-6) Last Admin: 06/18/25 05:45 Dose: 5 mg Documented By: MARCIA Pharmacy Consult (Consult Rx Vancomycin Dosing) 1 each MISCELLANE DAILY PRN PRN Reason: Consult order Polyethylene Glycol (Polyethylene Glycol 3350 17 Gm Powd.Pack) 17 gm PO DAILY PRN PRN Reason: Constipation Senna (Sennosides 8.6 Mg Tablet) 17.2 mg PO BEDTIME [facility] Last Admin: 06/17/25 20:36 Dose: 17.2 mg Documented By: MARCIA Sodium Chloride (0.9 % Sodium Chloride Flush 3 Ml Syringe) 3 ml IVFLUSH QSHIFT [facility] Last Admin: 06/18/25 08:11 Dose: 3 ml Documented By: DENY Trazodone HCl (Trazodone Hcl 100 Mg Tablet) 400 mg PO BEDTIME [facility] Last Admin: 06/17/25 20:37 Dose: 400 mg Documented By: MARCIA Labs 06/17/25 08:59 06/18/25 08:55 Labs: Laboratory Results - last 24 hr 06/17/25 06/18/25 11:17 08:55 Hold Purple Top SEE NOTE Estim Creat Clear Calc 96.7 Estimated GFR > 60 POC Glucose 106 Vancomycin Trough 16.9 Microbiology Microbiology Results: Microbiology 06/15/25 01:18 Gram Stain - Final Spine Routine Culture - Preliminary No growth to date. Assessment and Plan (1) Diskitis: Status: Acute Plan d5, 54yo F with L3-4, L4-5 spinal stenosis/lateral recess stenosis/neural foraminal stenosis, s/p right L3-4, L4-5 Laminotomy, Partial facetectomy and L5 foraminotomy 03/14/25 complicated by sepsis due to MRSA bacteremia due to diskitis, myositis, micro abscesses; treated with 8 wk of daptomycin with plan to transition to TMP-SMX x4 wk but sent in with worsening pain and cloudy drainage from lumbar wound. MRI with small iliopsoas abscess, diskitis/osteomyelitis L1-L4, seroma vs abscess in midline of back. diskitis/osteomyelitis - Neurosurgery consulted, no operative intervention planned; per IR, psoas abscess is not amenable to drainage catheter, could consider FNA aspiration but yield likely to be low and ID data warehouse consultant agrees; 06/14- piperacillin-tazobactam + vancomycin, BCx negative and wound Cx no growth to date; plan 6 wk of IV vancomycin per ID, end date 07/26, order PICC line for tomorrow - Wound Care: Lumbar Back - Gently cleanse with NS moist gauze, Pat dry.? Apply skin prep barrier to periwound, lightly pack with Durafiber AG, (Spiral cut the sheet into one piece) be sure to leave a wick for easy removal.? Cover with dry gauze and ABD Pad dressing.? Change Daily while inpatient. Off Load Pressure with Q2 hr turns and use of pillows when in bed. Coccyx - Off Load Pressure with Q2 hr turns and use of pillows - Cleanse with PH balance spray or wipes, pat dry. ?Apply thin layer of Triad to wound bed. Do not remove all of paste between applications as this may cause further skin damage.? Cover with foam dressing to aid in off loading and protection from friction. Change every 3 days and PRN. hyperCa - resolved, was due to dehydration DM2 - A1c only 5.7, no longer needs fingersticks and insulin gout - allopurinol HLD - statin HTN - losartan intermittent asthma - prn albuterol tobacco abuse - NRT, counseling mood disorder - clonidine, trazodone VTE ppx - enoxaparin dispo - PT consulted: STR In my clinical judgment, the patient requires continued inpatient hospitalization for the following reasons: IV ABX, PICC< STR placement Total time managing care of this patient today: 35 minutes. Quality Stroke Does the patient have a stroke diagnosis?: No Reason for No Anti-thrombotic by Day Two: Contraindicated VTE Prior VTE?: No VTE Risk Level:: Medical - moderate - high VTE Device Contraindication: N/A - Device Ordered VTE Drug Contraindication: Treatment Not Indicated
--- NOTE | 2025-06-18 10:38 | HE.PHANOTE ---
Vancomycin addendum: Level came back at 16.9, will continue same dose and regimen, will check another level in 2 days
--- NOTE | 2025-06-18 13:19 | PC.NURSE ---
Patient encouraged and willing to sit up in chair, waffle cushion in place. Patient tolerated getting up well but required encouragement, purwick removed and patient encouraged and utilized bed side commode throughout shift. While patient was up in chair, mattress was switched out to a mattress that was compatible with airloss device.Patient's buttock is red, minimally blanchable, triad cream applied - photo below of buttock. Patient educated to turn and reposition.
[2025-06-18 15:13] VITALS: BP 127/76; PULSE 70; RESP 18; TEMP 36.6; O2SAT 96
[2025-06-18 19:01] VITALS: BP 160/77; PULSE 81; RESP 18; TEMP 36.6; O2SAT 97
[2025-06-19] MEDS: oxyCODONE HCl Immed Release 5 MG TABLET PO ×2 (02:22→08:46)
[2025-06-19 04:00] VITALS: BP 154/82; PULSE 66; RESP 18; TEMP 36.4; O2SAT 95
[2025-06-19 06:13] LABS: Creatinine Clr Calc Pharmacy 90.4; Estimated Glomerular Filt Rate > 60
[2025-06-19 07:50] VITALS: BP 145/77; PULSE 77; RESP 18; TEMP 36; O2SAT 94
[2025-06-19] MEDS: 0.9 % Sodium Chloride Flush 3 ML SYRINGE IVFLUSH ×2 (08:37→20:45)
[2025-06-19] MEDS: Lidocaine 4 % Patch ADH..PATCH 1 PATCH TRANSDERMA (08:45)
[2025-06-19 09:22] VITALS: BMI 35.4
--- NOTE | 2025-06-19 09:29 | MHC.CLN ---
NUTRITION DIET=DIABETIC 2000 KCALS. SKIN WITH UNSTAGEABLE PRESSURE INJURY TO COCCYX. ADDING ENSURE MAX PROTEIN BID TO PROMOTE WOUND HEALING. SUPPPLEMENT PROVIDES 300 KCALS, 60 G PROTEIN. PO INTAKE USUALLY VERY GOOD. MONITOR FOR PO INTAKE AND SKIN INTEGRITY. SEE CLINICAL NUTRITION ASSESSMENT 06/19/25.
--- NOTE | 2025-06-19 09:59 | P.CONOP_ITS ---
History of Present Illness HPI Consult date: 06/19/25 Chief complaint: Spinal Abscess Narrative: Patient is a 54-year-old female who is admitted to the hospital for spinal abscess, osteomyelitis, and diskitis Patient states that while in the emergency department on 06/14, she began to develop pain in the left knee Patient states that this pain is not bad at rest, but worsens with range of motion and ambulation However, the patient states that she is still able to actively range the left knee and ambulate with her walker Patient denies any redness or swelling to the left knee Of note, patient does also have a history of gout No other acute complaints or concerns at this time Review of Systems 2 Review of Systems: Yes all other systems are reviewed and are negative PMFSH Past Medical History Medical History MRSA (methicillin resistant Staphylococcus aureus) infection Anemia Anxiety MDD (major depressive disorder) Gout GERD (gastroesophageal reflux disease) Ambulates with cane Smoker Hyperuricemia Asthma Obese Osteoarthritis Trigger finger Carpal tunnel syndrome Hyperlipidemia LDL goal <100 Essential hypertension Hyperlipidemia Cellulitis, umbilical Family History Family History Father Diabetes Hypertension Stroke Heart attack, Onset Age: 50 Mother Multiple sclerosis Brother In good health Son In good health Son In good health Other Patient denies medical problems Family history: reviewed and not pertinent Surgical History Surgical History History of esophagogastroduodenoscopy (EGD) Hx of colonoscopy History of laparoscopic appendectomy History of foot surgery History of carpal tunnel release H/O: hysterectomy Social History Social History Household Members: Spouse and Children Housing: Apartment Are you a primary rn managed care to a significant other at home: No Do you presently have visiting nurse or other home services: Yes ([facility]) Alcohol intake: current Alcohol intake frequency: holidays/special occasions only Alcohol type: beer Patient Tobacco Use Status: Current everyday Tobacco user Tobacco use type: Cigarette Cigarette Packs Per Day: 0.5 Cigarettes Per Day: 10.0 Years Smoked: 46 e-Cigarette/Vaping Use: Never Used Second Hand Smoke Exposure: Yes service: No Current occupational status: disabled Cognitive needs: No Hearing needs: No Vision needs: Yes (glasses) Travel History Ebola Risk: Travel/Contact With Anyone From Affected Area/s: No Has Patient Experienced Ebola Symptoms: No Meds Allergies Allergy/AdvReac Type Severity Reaction Status Date / Time gabapentin Allergy Intermediate Nausea and Verified 06/14/25 15:31 Vomiting morphine (Morphine) Allergy Intermediate VOMITING Verified 06/14/25 15:31 oxycodone (Percocet) Allergy Intermediate Vomiting Verified 06/14/25 15:31 methocarbamol AdvReac Intermediate GI upset Verified 06/14/25 15:31 Active Medications: Current Medications Acetaminophen (Acetaminophen 325 Mg Tablet) 650 mg PO Q6H PRN PRN Reason: Pain, Mild 1-3,fever,headache Last Admin: 06/19/25 08:31 Dose: 650 mg Al Hydroxide/Mg Hydroxide (Magnesium Hydrox/Alum Hydrox 30 Ml Oral.Susp) 30 ml PO Q4H PRN PRN Reason: Heartburn Albuterol Sulfate (Albuterol Sulfate 90 Mcg 8 Gm Inhaler) 1 puff INHALE QID PRN PRN Reason: Shortness Of Breath Or Wheezing Albuterol/Ipratropium (Albuterol/Iprat 2.5/0.5mg 3 Ml Ampul.Neb) 3 ml INHALE Q4H PRN PRN Reason: Shortness of Breath/Wheezing Allopurinol (Allopurinol 100 Mg Tablet) 100 mg PO DAILY [facility] Last Admin: 06/19/25 08:31 Dose: 100 mg Atorvastatin Calcium (Atorvastatin Calcium 40 Mg Tablet) 40 mg PO DAILY [facility] Last Admin: 06/19/25 08:32 Dose: 40 mg Baclofen (Baclofen 10 Mg Tablet) 10 mg PO DAILY [facility] Last Admin: 06/19/25 08:32 Dose: 10 mg Calcium Carbonate (Calcium Carbonate 750 Mg Tab.Chew) 750 mg PO Q4H PRN PRN Reason: Heartburn Clonidine HCl (Clonidine Hcl 0.1 Mg Tablet) 0.3 mg PO BEDTIME [facility]; Protocol Last Admin: 06/18/25 20:45 Dose: 0.3 mg Cyanocobalamin (Cyanocobalamin (Vitamin B-12) 1,000 Mcg Tablet) 1,000 mcg PO DAILY [facility] Last Admin: 06/19/25 08:32 Dose: 1,000 mcg Enoxaparin Sodium (Enoxaparin Sodium 40 Mg/0.4 Ml Syringe) 40 mg SUBCUT Q24H [facility] Last Admin: 06/18/25 11:32 Dose: 40 mg Hydromorphone HCl (Hydromorphone Hcl 0.5 Mg/0.5 Ml Syringe) 0.75 mg IVPUSH Q3H PRN; Protocol PRN Reason: Pain, Severe (Pain Scale 7-10) Last Admin: 06/19/25 06:10 Dose: 0.75 mg Piperacillin Sod/Tazobactam (Sod 4.5 gm/ Sodium Chloride) 100 mls @ 200 mls/hr IV Q6H [facility] Last Infusion: 06/19/25 09:45 Dose: Infused Vancomycin HCl 1,000 mg/ (Sodium Chloride) 270 mls @ 270 mls/hr IV Q12H [facility] Last Infusion: 06/18/25 23:57 Dose: Infused Lidocaine (Lidocaine 4 % Patch Adh..Patch) 1 patch TRANSDERMA DAILY [facility]; Protocol Last Admin: 06/19/25 08:45 Dose: 1 patch Losartan Potassium (Losartan Potassium 50 Mg Tablet) 50 mg PO DAILY [facility]; Protocol Last Admin: 06/19/25 08:31 Dose: 50 mg Magnesium Hydroxide (Milk Of Magnesia 30 Ml Oral.Susp) 30 ml PO DAILY PRN PRN Reason: Constipation Magnesium Oxide (Magnesium Oxide 400 Mg Tablet) 400 mg PO DAILY [facility] Last Admin: 06/19/25 08:32 Dose: 400 mg Melatonin (Melatonin 3 Mg Tablet) 6 mg PO BEDTIME PRN PRN Reason: Insomnia Montelukast Sodium (Montelukast Sodium 10 Mg Tablet) 10 mg PO DAILY [facility] Last Admin: 06/19/25 08:31 Dose: 10 mg Multivitamins/Vitamin C (Multivitamin Tablet) 1 tab PO DAILY [facility] Last Admin: 06/19/25 08:32 Dose: 1 tab Nicotine (Nicotine 14 Mg Patch.Td24) 14 mg TRANSDERMA DAILY [facility] Last Admin: 06/19/25 08:35 Dose: Not Given Non-Formulary Medication (Ergotamine-Caffeine) 1 tab PO Q30M PRN PRN Reason: migraine headache Ondansetron HCl (Ondansetron Hcl 4 Mg/2 Ml Vial) 4 mg IVPUSH Q8H PRN PRN Reason: Nausea and Vomiting Oxycodone HCl (Oxycodone Hcl Immed Release 5 Mg Tablet) 5 mg PO Q4H PRN PRN Reason: Pain, Moderate(Pain Scale 4-6) Last Admin: 06/19/25 08:46 Dose: 5 mg Pharmacy Consult (Consult Rx Vancomycin Dosing) 1 each MISCELLANE DAILY PRN PRN Reason: Consult order Polyethylene Glycol (Polyethylene Glycol 3350 17 Gm Powd.Pack) 17 gm PO DAILY PRN PRN Reason: Constipation Senna (Sennosides 8.6 Mg Tablet) 17.2 mg PO BEDTIME [facility] Last Admin: 06/18/25 20:45 Dose: 17.2 mg Sodium Chloride (0.9 % Sodium Chloride Flush 3 Ml Syringe) 3 ml IVFLUSH QSHIFT [facility] Last Admin: 06/19/25 08:37 Dose: 3 ml Trazodone HCl (Trazodone Hcl 100 Mg Tablet) 400 mg PO BEDTIME [facility] Last Admin: 06/18/25 20:44 Dose: 400 mg Home Medications ?Medication ?Instructions ?Recorded ?Confirmed ?Last Taken ?Type multivitamin 1 tab PO DAILY 07/31/2201/0306/14/25 History omega-3 fatty acids 500 mg capsule 500 mg PO DAILY 06/14/25 06/14/25 History baclofen 10 mg tablet 10 mg PO BID PRN Muscle Spas m 04/08/25 06/14/25 06/14/25 History albuterol sulfate 90 mcg/actuation 1 puff inhalation Q ID PRN 06/14/25 06/14/25 Unknown History aerosol inhaler Shortness Of Breath Or Wheez ing pantoprazole 40 mg tablet,delayed 40 mg PO DAILY@0630 06/14/25 06/14/25 06/14/25 History release Physical Exam 2 Vital Signs: Vital Signs: Last Vital Signs Temp 96.8 F 06/19/25 07:50 Pulse 77 06/19/25 07:50 Resp 18 06/19/25 07:50 BP 145/77 H 06/19/25 07:50 Pulse Ox 94 06/19/25 07:50 O2 Del Method Room Air 06/19/25 07:50 O2 Flow Rate 2 06/15/25 03:19 BMI result Body Mass Index 35.4 Extrem: Other: Patient's left knee normal to inspection No erythema, ecchymosis, edema noted No lacerations, abrasions, open areas No evidence of infection Patient reports no tenderness to palpation of the medial or lateral joint line of the left knee, quad tendon, patellar tendon, or posterior knee Patient is able to flex the knee to 100 degrees and extend fully and without difficulty No discomfort with axial loading of the left knee Patient reports she is able to ambulate with a walker with minimal discomfort, only ?soreness? Distal sensation intact Capillary refill brisk Results Labs 06/17/25 08:59 06/19/25 05:37 Labs: Abnormal lab results 06/19/25 Range/Units 05:37 C-Reactive Protein 0.83 H (< or = 0.50) mg/dL H & H 06/14/25 06/15/25 06/17/25 Range/Units 16:08 04:41 08:59 Hgb 10.7 L D 8.8 L 9.0 L (12.0-16.0) g/dl Hct 32.8 L D 27.4 L 27.8 L (37.0-47.0) % All other labs normal. Diagnostic results Knee x-ray: report reviewed and image reviewed Assessment and Plan (1) Left knee pain: Status: Acute Plan 1. Left knee pain Since approximately 06/14/2025 Patient is educated about this condition Patient is educated about the typical treatment course At this time, no signs or symptoms worrisome for septic joint or other urgent or emergent pathologies Good range of motion, no pain with axial loading, patient is able to ambulate No evidence of fracture or joint effusion on x-ray I feel that this is likely soft tissue derangement of the left knee No acute orthopedic intervention indicated at this time Recommend pain management, PT evaluation Patient may follow-up in the outpatient office upon discharge if pain continues Procedures Date of Service Date of Service: 06/19/25
--- NOTE | 2025-06-19 11:46 | HO.PICC ---
PICC Line Insertion NPICC Diagnosis: Osteomyelitis Indication: senior living ABT Pertinent Labs: reviewed Technique: Following informed consent including risks, benefits and alternatives and using sterile technique including cap and mask, sterile gown, glove and drape, the right arm was prepped and draped in the usual sterile fashion of full barrier technique with G. Following completion of [place] Protocol the skin and soft tissues were anesthetized with 1% Lidocaine plain. Using ultrasound guidance, right cephalic vein access was obtained. Over an 0.018 wire through peel-away sheath, a 4fr single lumen PASV PICC line was positioned. Catheter length is 35cm internal length, 4cm external length, for a total trimmed length of 39cm. The procedure was performed in . Tip verification was performed by Ida Akbar with Sherlock 3CG. Tip located in SVC. Ultrasound was used to document vein patency and for needle entry. A formal ultrasound picture and cardiac rhythm strip was recorded. [employer] has released the line for use and it is currently dressed with a StatLock, Tegaderm, and CHG disc. Verification has been performed for blood return and line patency. Arm Circumference: 34cm Equipment: [employer]ecure POWER PICC Solo Catheter with Sherlock 3CG Tip Catheter Type: 4fr single lumen PASV catheter Lot #: [id number]
[2025-06-19] MEDS: 0.9 % Sodium Chloride Flush 10 ML SYRINGE IVFLUSH (13:12)
[2025-06-19 13:13] LABS: VITAMIN D (1,25 OH) D3 11 pg/mL; Vit D (1,25-Dihydroxy) Total 11 pg/mL (18-72); Vitamin D (1,25 OH) D2 <8 pg/mL
[2025-06-19 15:29] VITALS: BP 114/56; PULSE 75; RESP 18; TEMP 37.1; O2SAT 96
--- NOTE | 2025-06-19 15:32 | HO.PM.IMPN ---
Subjective Subjective Date of Service: 06/19/25 Interval History: c/o worsening back pain also L knee pain no fever PICC done Review of Systems Review of Systems: Yes all other systems are reviewed and are negative Physical Exam Vital Signs: Vital Signs: Last Vital Signs Temp 98.8 F 06/19/25 15:29 Pulse 75 06/19/25 15:29 Resp 18 06/19/25 15:29 BP 114/56 L 06/19/25 15:29 Pulse Ox 96 06/19/25 15:29 O2 Del Method Room Air 06/19/25 15:29 O2 Flow Rate 2 06/15/25 03:19 BMI result Body Mass Index 35.4 Gen: in no acute distress HEENT: sclera anicteric, moist mucus membranes Neck: supple Lungs: clear to auscultation bilaterally Heart: regular rate and rhythm, no murmurs Abd: soft, non-tender, non-distended Ext: no edema, no L knee swelling Skin: warm/well-perfused, lumbar wound with scant serous drainage Neuro: alert and oriented x3, no focal findings Psych: appropriate affect Objective Data Active Medications Acetaminophen (Acetaminophen 325 Mg Tablet) 650 mg PO Q6H PRN PRN Reason: Pain, Mild 1-3,fever,headache Last Admin: 06/19/25 08:31 Dose: 650 mg Documented By: BEL Al Hydroxide/Mg Hydroxide (Magnesium Hydrox/Alum Hydrox 30 Ml Oral.Susp) 30 ml PO Q4H PRN PRN Reason: Heartburn Albuterol Sulfate (Albuterol Sulfate 90 Mcg 8 Gm Inhaler) 1 puff INHALE QID PRN PRN Reason: Shortness Of Breath Or Wheezing Albuterol/Ipratropium (Albuterol/Iprat 2.5/0.5mg 3 Ml Ampul.Neb) 3 ml INHALE Q4H PRN PRN Reason: Shortness of Breath/Wheezing Allopurinol (Allopurinol 100 Mg Tablet) 100 mg PO DAILY [facility] Last Admin: 06/19/25 08:31 Dose: 100 mg Documented By: BEL Atorvastatin Calcium (Atorvastatin Calcium 40 Mg Tablet) 40 mg PO DAILY [facility] Last Admin: 06/19/25 08:32 Dose: 40 mg Documented By: BEL Baclofen (Baclofen 10 Mg Tablet) 10 mg PO DAILY [facility] Last Admin: 06/19/25 08:32 Dose: 10 mg Documented By: BEL Calcium Carbonate (Calcium Carbonate 750 Mg Tab.Chew) 750 mg PO Q4H PRN PRN Reason: Heartburn Clonidine HCl (Clonidine Hcl 0.1 Mg Tablet) 0.3 mg PO BEDTIME [facility]; Protocol Last Admin: 06/18/25 20:45 Dose: 0.3 mg Documented By: SHRUTI Cyanocobalamin (Cyanocobalamin (Vitamin B-12) 1,000 Mcg Tablet) 1,000 mcg PO DAILY [facility] Last Admin: 06/19/25 08:32 Dose: 1,000 mcg Documented By: BEL Enoxaparin Sodium (Enoxaparin Sodium 40 Mg/0.4 Ml Syringe) 40 mg SUBCUT Q24H [facility] Last Admin: 06/19/25 12:13 Dose: 40 mg Documented By: BEL Hydromorphone HCl (Hydromorphone Hcl 0.5 Mg/0.5 Ml Syringe) 0.75 mg IVPUSH Q3H PRN; Protocol PRN Reason: Pain, Severe (Pain Scale 7-10) Last Admin: 06/19/25 14:45 Dose: 0.75 mg Documented By: BEL Piperacillin Sod/Tazobactam (Sod 4.5 gm/ Sodium Chloride) 100 mls @ 200 mls/hr IV Q6H [facility] Last Infusion: 06/19/25 15:28 Dose: Infused Documented By: BEL Vancomycin HCl 1,000 mg/ (Sodium Chloride) 270 mls @ 270 mls/hr IV Q12H [facility] Last Infusion: 06/19/25 13:17 Dose: Infused Documented By: BEL Lidocaine (Lidocaine 4 % Patch Adh..Patch) 1 patch TRANSDERMA DAILY [facility]; Protocol Last Admin: 06/19/25 08:45 Dose: 1 patch Documented By: BEL Losartan Potassium (Losartan Potassium 50 Mg Tablet) 50 mg PO DAILY [facility]; Protocol Last Admin: 06/19/25 08:31 Dose: 50 mg Documented By: BEL Magnesium Hydroxide (Milk Of Magnesia 30 Ml Oral.Susp) 30 ml PO DAILY PRN PRN Reason: Constipation Magnesium Oxide (Magnesium Oxide 400 Mg Tablet) 400 mg PO DAILY [facility] Last Admin: 06/19/25 08:32 Dose: 400 mg Documented By: BEL Melatonin (Melatonin 3 Mg Tablet) 6 mg PO BEDTIME PRN PRN Reason: Insomnia Montelukast Sodium (Montelukast Sodium 10 Mg Tablet) 10 mg PO DAILY [facility] Last Admin: 06/19/25 08:31 Dose: 10 mg Documented By: BEL Multivitamins/Vitamin C (Multivitamin Tablet) 1 tab PO DAILY [facility] Last Admin: 06/19/25 08:32 Dose: 1 tab Documented By: BEL Nicotine (Nicotine 14 Mg Patch.Td24) 14 mg TRANSDERMA DAILY [facility] Last Admin: 06/19/25 08:35 Dose: Not Given Documented By: BEL Non-Admin Reason: Patient Refused Non-Formulary Medication (Ergotamine-Caffeine) 1 tab PO Q30M PRN PRN Reason: migraine headache Ondansetron HCl (Ondansetron Hcl 4 Mg/2 Ml Vial) 4 mg IVPUSH Q8H PRN PRN Reason: Nausea and Vomiting Oxycodone HCl (Oxycodone Hcl Immed Release 5 Mg Tablet) 5 mg PO Q4H PRN PRN Reason: Pain, Moderate(Pain Scale 4-6) Last Admin: 06/19/25 08:46 Dose: 5 mg Documented By: BEL Pharmacy Consult (Consult Rx Vancomycin Dosing) 1 each MISCELLANE DAILY PRN PRN Reason: Consult order Polyethylene Glycol (Polyethylene Glycol 3350 17 Gm Powd.Pack) 17 gm PO DAILY PRN PRN Reason: Constipation Senna (Sennosides 8.6 Mg Tablet) 17.2 mg PO BEDTIME [facility] Last Admin: 06/18/25 20:45 Dose: 17.2 mg Documented By: SHRUTI Sodium Chloride (0.9 % Sodium Chloride Flush 3 Ml Syringe) 3 ml IVFLUSH QSWIFT [facility] Last Admin: 06/19/25 08:37 Dose: 3 ml Documented By: BEL Sodium Chloride (0.9 % Sodium Chloride Flush 10 Ml Syringe) 10 ml IVFLUSH [facility] Trazodone HCl (Trazodone Hcl 100 Mg Tablet) 400 mg PO BEDTIME [facility] Last Admin: 06/18/25 20:44 Dose: 400 mg Documented By: SHRUTI Labs 06/17/25 08:59 06/19/25 05:37 Labs: Laboratory Results - last 24 hr 06/15/25 06/19/25 04:41 05:37 Estim Creat Clear Calc 90.4 Estimated GFR > 60 C-Reactive Protein 0.83 H 1,25 Dihydroxy Vit D 11 L 1,25 Dihydroxy Vit D2 <8 1,25 Dihydroxy Vit D3 11 Microbiology Microbiology Results: Microbiology 06/15/25 01:18 Gram Stain - Final Spine Routine Culture - Final No growth after 2 days Assessment and Plan (1) Diskitis: Status: Acute Plan d6, 54yo F with L3-4, L4-5 spinal stenosis/lateral recess stenosis/neural foraminal stenosis, s/p right L3-4, L4-5 Laminotomy, Partial facetectomy and L5 foraminotomy 03/14/25 complicated by sepsis due to MRSA bacteremia due to diskitis, myositis, micro abscesses; treated with 8 wk of daptomycin with plan to transition to TMP-SMX x4 wk but sent in with worsening pain and cloudy drainage from lumbar wound. MRI with small iliopsoas abscess, diskitis/osteomyelitis L1-L4, seroma vs abscess in midline of back. diskitis/osteomyelitis - Neurosurgery consulted, no operative intervention planned; per IR, psoas abscess is not amenable to drainage catheter, could consider FNA aspiration but yield likely to be low and ID rn lactation consultant agrees; however, given worsening pain, will repeat imaging with contrast CT to see if psoas abscess has grown - 06/14- piperacillin-tazobactam + vancomycin, BCx negative and wound Cx no growth to date; plan 6 wk of IV vancomycin per ID, end date 07/26, PICC placed - Wound Care: Lumbar Back - Gently cleanse with NS moist gauze, Pat dry.? Apply skin prep barrier to periwound, lightly pack with Durafiber AG, (Spiral cut the sheet into one piece) be sure to leave a wick for easy removal.? Cover with dry gauze and ABD Pad dressing.? Change Daily while inpatient. Off Load Pressure with Q2 hr turns and use of pillows when in bed. Coccyx - Off Load Pressure with Q2 hr turns and use of pillows - Cleanse with PH balance spray or wipes, pat dry. ?Apply thin layer of Triad to wound bed. Do not remove all of paste between applications as this may cause further skin damage.? Cover with foam dressing to aid in off loading and protection from friction. Change every 3 days and PRN. L knee pain - Ortho consulted, likely soft tissue issue, pain control and consider outpt f/u hyperCa - resolved, was due to dehydration DM2 - A1c only 5.7, no longer needs fingersticks and insulin gout - allopurinol HLD - statin HTN - losartan intermittent asthma - prn albuterol tobacco abuse - NRT, counseling mood disorder - clonidine, trazodone VTE ppx - enoxaparin dispo - PT consulted: STR highly recommended In my clinical judgment, the patient requires continued inpatient hospitalization for the following reasons: STR placement Total time managing care of this patient today: 35 minutes. Quality Stroke Does the patient have a stroke diagnosis?: No Reason for No Anti-thrombotic by Day Two: Contraindicated VTE Prior VTE?: No VTE Risk Level:: Medical - moderate - high VTE Device Contraindication: N/A - Device Ordered VTE Drug Contraindication: Treatment Not Indicated
--- NOTE | 2025-06-19 16:10 | MHC.CM.PN ---
PT DECLINED STR OPTION CARE AND [facility] ARRANGED FOR OV AT HOME PT SET FOR DC TODAY BUT CHANGED HER MIND AND [facility] MADE ASKED REGAL TO GO FOR AUTH
[2025-06-19 19:53] VITALS: BP 138/78; PULSE 81; RESP 18; TEMP 36.4; O2SAT 94
[2025-06-19 20:43] VITALS: BP 138/78
[2025-06-19] MEDS: oxyCODONE HCl Immed Release 5 MG TABLET 10 MG PO (22:23)
[2025-06-20 03:31] VITALS: BP 110/53; PULSE 75; RESP 16; TEMP 36.3; O2SAT 94
[2025-06-20] MEDS: oxyCODONE HCl Immed Release 5 MG TABLET 10 MG PO ×2 (07:46→14:35)
[2025-06-20 07:47] VITALS: BP 125/74; PULSE 70; RESP 16; TEMP 36.2; O2SAT 95
[2025-06-20 07:48] LABS: Creatinine Clr Calc Pharmacy 90.4; Estimated Glomerular Filt Rate > 60
[2025-06-20] MEDS: Lidocaine 4 % Patch ADH..PATCH 1 PATCH TRANSDERMA (09:12)
[2025-06-20] MEDS: 0.9 % Sodium Chloride Flush 10 ML SYRINGE IVFLUSH ×3 (09:16→20:35)
[2025-06-20] MEDS: 0.9 % Sodium Chloride Flush 3 ML SYRINGE IVFLUSH ×2 (09:21→20:23)
--- NOTE | 2025-06-20 09:35 | HE.PHANOTE ---
re: vanco Trough came back at 20.1. Holding dose and re-timing for 1400 to allow patient to clear. Will continue same regimen and check trough / @1200.
[2025-06-20] MEDS: iohexoL 350 MG/ML 100 ML INFUS..BTL 85 ML IV (13:32)
[2025-06-20 15:19] VITALS: BP 123/59; PULSE 78; RESP 20; TEMP 37.3; O2SAT 93
--- NOTE | 2025-06-20 15:54 | P.PNIM_ITS ---
Subjective Subjective Date of Service: 06/20/25 Interval History: c/o back pain no fever Review of Systems Review of Systems: Yes all other systems are reviewed and are negative Physical Exam 2 Vital Signs: Vital Signs: Last Vital Signs Temp 99.1 F 06/20/25 15:19 Pulse 78 06/20/25 15:19 Resp 20 06/20/25 15:19 BP 123/59 L 06/20/25 15:19 Pulse Ox 93 06/20/25 15:19 O2 Del Method Room Air 06/20/25 15:19 O2 Flow Rate 2 06/15/25 03:19 BMI result Body Mass Index 35.4 Gen: in no acute distress HEENT: sclera anicteric, moist mucus membranes Neck: supple Lungs: clear to auscultation bilaterally Heart: regular rate and rhythm, no murmurs Abd: soft, non-tender, non-distended Ext: no edema, no L knee swelling Skin: warm/well-perfused, lumbar wound with scant serous drainage Neuro: alert and oriented x3, no focal findings Psych: appropriate affect Objective Data Active Medications Acetaminophen (Acetaminophen 325 Mg Tablet) 650 mg PO Q6H PRN PRN Reason: Pain, Mild 1-3,fever,headache Last Admin: 06/19/25 08:31 Dose: 650 mg Documented By: BEL Al Hydroxide/Mg Hydroxide (Magnesium Hydrox/Alum Hydrox 30 Ml Oral.Susp) 30 ml PO Q4H PRN PRN Reason: Heartburn Albuterol Sulfate (Albuterol Sulfate 90 Mcg 8 Gm Inhaler) 1 puff INHALE QID PRN PRN Reason: Shortness Of Breath Or Wheezing Albuterol/Ipratropium (Albuterol/Iprat 2.5/0.5mg 3 Ml Ampul.Neb) 3 ml INHALE Q4H PRN PRN Reason: Shortness of Breath/Wheezing Allopurinol (Allopurinol 100 Mg Tablet) 100 mg PO DAILY [facility] Last Admin: 06/20/25 09:13 Dose: 100 mg Documented By: BEL Atorvastatin Calcium (Atorvastatin Calcium 40 Mg Tablet) 40 mg PO DAILY [facility] Last Admin: 06/20/25 09:13 Dose: 40 mg Documented By: BEL Baclofen (Baclofen 10 Mg Tablet) 10 mg PO DAILY [facility] Last Admin: 06/20/25 09:13 Dose: 10 mg Documented By: BEL Calcium Carbonate (Calcium Carbonate 750 Mg Tab.Chew) 750 mg PO Q4H PRN PRN Reason: Heartburn Clonidine HCl (Clonidine Hcl 0.1 Mg Tablet) 0.3 mg PO BEDTIME [facility]; Protocol Last Admin: 06/19/25 20:43 Dose: 0.3 mg Documented By: OLAF Cyanocobalamin (Cyanocobalamin (Vitamin B-12) 1,000 Mcg Tablet) 1,000 mcg PO DAILY [facility] Last Admin: 06/20/25 09:13 Dose: 1,000 mcg Documented By: BEL Enoxaparin Sodium (Enoxaparin Sodium 40 Mg/0.4 Ml Syringe) 40 mg SUBCUT Q24H [facility] Last Admin: 06/20/25 10:54 Dose: 40 mg Documented By: BEL Hydromorphone HCl (Hydromorphone Hcl 0.5 Mg/0.5 Ml Syringe) 0.75 mg IVPUSH Q3H PRN; Protocol PRN Reason: Pain, Severe (Pain Scale 7-10) Last Admin: 06/20/25 15:43 Dose: 0.75 mg Documented By: BEL Piperacillin Sod/Tazobactam (Sod 4.5 gm/ Sodium Chloride) 100 mls @ 200 mls/hr IV Q6H [facility] Last Admin: 06/20/25 15:42 Dose: 100 mls/hr Documented By: BEL Vancomycin HCl 1,000 mg/ (Sodium Chloride) 270 mls @ 270 mls/hr IV Q12H [facility] Last Admin: 06/20/25 14:28 Dose: 270 mls/hr Documented By: BEL Lidocaine (Lidocaine 4 % Patch Adh..Patch) 1 patch TRANSDERMA DAILY [facility]; Protocol Last Admin: 06/20/25 09:12 Dose: 1 patch Documented By: BEL Losartan Potassium (Losartan Potassium 50 Mg Tablet) 50 mg PO DAILY [facility]; Protocol Last Admin: 06/20/25 09:13 Dose: 50 mg Documented By: BEL Magnesium Hydroxide (Milk Of Magnesia 30 Ml Oral.Susp) 30 ml PO DAILY PRN PRN Reason: Constipation Magnesium Oxide (Magnesium Oxide 400 Mg Tablet) 400 mg PO DAILY [facility] Last Admin: 06/20/25 09:13 Dose: 400 mg Documented By: BEL Melatonin (Melatonin 3 Mg Tablet) 6 mg PO BEDTIME PRN PRN Reason: Insomnia Montelukast Sodium (Montelukast Sodium 10 Mg Tablet) 10 mg PO DAILY [facility] Last Admin: 06/20/25 09:13 Dose: 10 mg Documented By: BEL Multivitamins/Vitamin C (Multivitamin Tablet) 1 tab PO DAILY [facility] Last Admin: 06/20/25 09:13 Dose: 1 tab Documented By: BEL Nicotine (Nicotine 14 Mg Patch.Td24) 14 mg TRANSDERMA DAILY [facility] Last Admin: 06/20/25 09:22 Dose: Not Given Documented By: BEL Non-Admin Reason: Patient Refused Non-Formulary Medication (Ergotamine-Caffeine) 1 tab PO Q30M PRN PRN Reason: migraine headache Ondansetron HCl (Ondansetron Hcl 4 Mg/2 Ml Vial) 4 mg IVPUSH Q8H PRN PRN Reason: Nausea and Vomiting Oxycodone HCl (Oxycodone Hcl Immed Release 5 Mg Tablet) 10 mg PO Q4H PRN PRN Reason: Pain, Moderate(Pain Scale 4-6) Last Admin: 06/20/25 14:35 Dose: 10 mg Documented By: BEL Pharmacy Consult (Consult Rx Vancomycin Dosing) 1 each MISCELLANE DAILY PRN PRN Reason: Consult order Polyethylene Glycol (Polyethylene Glycol 3350 17 Gm Powd.Pack) 17 gm PO DAILY PRN PRN Reason: Constipation Senna (Sennosides 8.6 Mg Tablet) 17.2 mg PO BEDTIME [facility] Last Admin: 06/19/25 20:43 Dose: 17.2 mg Documented By: OLAF Sodium Chloride (0.9 % Sodium Chloride Flush 3 Ml Syringe) [facility] Last Admin: 06/20/25 09:21 Dose: 3 ml Documented By: BEL Sodium Chloride (0.9 % Sodium Chloride Flush 10 Ml Syringe) 10 ml IVFLUSH [facility] Last Admin: 06/20/25 09:16 Dose: 10 ml Documented By: BEL Trazodone HCl (Trazodone Hcl 100 Mg Tablet) 400 mg PO BEDTIME [facility] Last Admin: 06/19/25 20:43 Dose: 400 mg Documented By: HO.[place] Labs 06/17/25 08:59 06/20/25 05:56 Labs: Laboratory Results - last 24 hr 06/20/25 06/20/25 05:56 08:54 Hold Purple Top SEE NOTE Estim Creat Clear Calc 90.4 Estimated GFR > 60 Vancomycin Trough 20.1 H Impressions Abdomen/Pelvis CT 06/20/25 13:21 IMPRESSION: 1. Findings consistent with vertebral discitis and osteomyelitis from L1 through L4 as described, with associated paraspinal inflammatory soft tissue and lymphadenopathy, as seen on MRI. 2. Probable left psoas abscess as described. Electronically signed by: Eduard Segura MD 06/20/2025 01:57 PM EDT RP Microbiology Microbiology Results: Microbiology 06/14/25 20:58 Blood Culture - Final Blood - Venous No growth after 5 days. 06/14/25 20:58 Blood Culture - Final Blood - Venous No growth after 5 days. Assessment and Plan (1) Diskitis: Status: Acute Plan d7, 54yo F with L3-4, L4-5 spinal stenosis/lateral recess stenosis/neural foraminal stenosis, s/p right L3-4, L4-5 Laminotomy, Partial facetectomy and L5 foraminotomy 03/14/25 complicated by sepsis due to MRSA bacteremia due to diskitis, myositis, micro abscesses; treated with 8 wk of daptomycin with plan to transition to TMP-SMX x4 wk but sent in with worsening pain and cloudy drainage from lumbar wound. MRI with small iliopsoas abscess, diskitis/osteomyelitis L1-L4, seroma vs abscess in midline of back. diskitis/osteomyelitis - Neurosurgery consulted, no operative intervention planned; per IR, psoas abscess is not amenable to drainage catheter, could consider FNA aspiration but yield likely to be low and ID analytics consultant agrees; repeat imaging today with CT A/P with contrast shows psoas abscess that per ID and IR is too small to drain; however, the diskitis is severe and should be followed during treatment to ensure improving; should follow up with ID in 2 weeks with re-imaging and if fails to improve should go to tertiary care center for washout - 06/14-06/21 piperacillin-tazobactam + 06/14-07/26 vancomycin, BCx negative and wound Cx no growth to date; plan 6 wk of IV vancomycin per ID, end date 07/26, PICC placed - Wound Care: Lumbar Back - Gently cleanse with NS moist gauze, Pat dry.? Apply skin prep barrier to periwound, lightly pack with Durafiber AG, (Spiral cut the sheet into one piece) be sure to leave a wick for easy removal.? Cover with dry gauze and ABD Pad dressing.? Change Daily while inpatient. Off Load Pressure with Q2 hr turns and use of pillows when in bed. Coccyx - Off Load Pressure with Q2 hr turns and use of pillows - Cleanse with PH balance spray or wipes, pat dry. ?Apply thin layer of Triad to wound bed. Do not remove all of paste between applications as this may cause further skin damage.? Cover with foam dressing to aid in off loading and protection from friction. Change every 3 days and PRN. L knee pain - Ortho consulted, likely soft tissue issue, pain control and consider outpt f/u hyperCa - resolved, was due to dehydration DM2 - A1c only 5.7, no longer needs fingersticks and insulin gout - allopurinol HLD - statin HTN - losartan intermittent asthma - prn albuterol tobacco abuse - NRT, counseling mood disorder - clonidine, trazodone VTE ppx - enoxaparin dispo - PT consulted: STR highly recommended; awaiting authorization In my clinical judgment, the patient requires continued inpatient hospitalization for the following reasons: STR placement Total time managing care of this patient today: 35 minutes. Quality Stroke Does the patient have a stroke diagnosis?: No Reason for No Anti-thrombotic by Day Two: Contraindicated VTE Prior VTE?: No VTE Risk Level:: Medical - moderate - high VTE Device Contraindication: N/A - Device Ordered VTE Drug Contraindication: Treatment Not Indicated
--- NOTE | 2025-06-20 16:12 | P.DS_ITS ---
DS: Providers Provider Date of admission: 06/14/25 21:02 Primary care physician: Festus Lang PA-C Consults: 06/14/25 21:04 Consult to Infectious Diseases Routine Consulting Provider: [facility] Reason for consultation: spinal abscess hx of MRSA Has provider been notified: No Consult to Neurosurgery Routine Consulting Provider: Juan Diego Bull Reason for consultation: spinal abscess Has provider been notified: Yes 06/14/25 22:22 Consult to Wound Care Routine Reason for consultation: lumbar opening - s/p surgery 04/0506/15/25 15:42 Consult to Wound Care Routine Reason for consultation: see neurosurgery note 06/19/25 08:34 Consult to Orthopedics Routine Consulting Provider: [facility] Orthopedic Surgeons Reason for consultation: severe left knee pain DS: Diagnosis Discharge Diagnosis (1) Diskitis: Status: Acute (2) Iliopsoas abscess: Status: Acute (3) Osteomyelitis: Status: Acute (4) Lumbar radiculopathy, chronic: Status: Acute DS: Summary Hospital Course Hospital Course: From the history and physical by the admitting hospitalist, Thomas Correa, 06/14/25: Pt is a 54 yo female with PMH OA of lumbar spine with surgical intervention March 14 2025 and MRSA infection dx 04/08/25, HX of MRSA Left thigh early 40's, tobacco dependence, obesity, MDD, Asthma only on rescue inhaler, gout, GERD, Migraine with no aura, HTN, DM no longer on metformin as it is well controlled, CTS with surgery, Hysterectomy due to bleeding, appendectomy presents to the ED with complaints of worsening back pain over the last 3-4 weeks. Pt had surgery 03/14/2025 for OA of lumbar spine and developed MRSA infection with known hx of MRSA remotely in Left thigh. Pt was admitted late March 2025 and continued Daptomycin via PICC line on discharge home and completed daptomycin June 08 and continued on Bactrim for 28 more days. Pt was following with Dr. Peres in ID since discharge back in April. Pt has had nursing services in twice a week for PICC line dressing change and wound care to lumbar spine which included packing of the area. The PICC line was discontinued by home care nursing staff. Pt's also learned to do dressing changes and performed the dressing change on days nursing was not present. Pt states the wound was getting smaller but the pain in the back was not improving. The wound has always drained a staton colored mildly cloudy drainage. Pt has not had any chills, fever, night sweats, N/V, abdominal pain or injury to affected area to include any falls. Pt has been using a walker to ambulate but in the past few days, it has been more difficult to walk. Pt denies loss of sensation, bowel or bladder control or neuropathy in lower legs. Work up in the ED included MRI of spine which noted: 1. Ilipsoas abscess posterior L paraspinal back area 2. discitis OM L1-L4 3. seroma vs abscess midline back [id number] ED provider, Dr. GARCIA notified Dr. Bull and asked that pt be admitted on IV ABX. Dr. Madrigal also consulted but no return call overnight. Official consults placed for Dr. Bull and Dr. Madrigal. Pt stated on Vancomycin and Zosyn for broad coverage. Pain mgmt included dilaudid which has provided some relief. Surgical site is small, with soiled wick noted and staton purulent drainage on dressing. No other opened wounds found. 54yo F with L3-4, L4-5 spinal stenosis/lateral recess stenosis/neural foraminal stenosis, s/p right L3-4, L4-5 Laminotomy, Partial facetectomy and L5 foraminotomy 03/14/25 complicated by sepsis due to MRSA bacteremia due to diskitis, myositis, micro abscesses; treated with 8 wk of daptomycin with plan to transition to TMP-SMX x4 wk but sent in with worsening pain and cloudy drainage from lumbar wound. MRI with small iliopsoas abscess, diskitis/osteomyelitis L1-L4, seroma vs abscess in midline of back. She was admitted to the medical-surgical unit. Neurosurgery consulted, no oper ative intervention planned; per IR, psoas abscess is not amenable to drainage catheter, could consider FNA aspiration but yield likely to be low and ID programmer analyst consultant agreed. Repeat imaging 06/20/[address] A/P with contrast shows psoas abscess that per ID and IR is too small to drain; however, the diskitis is severe and should be followed during treatment to ensure improving; should follow up with ID in 2 weeks with re-imaging and if fails to improve should go to tertiary care center for washout. So she was treated medically with antibiotics: 06/14-06/21 piperacillin-tazobactam + 06/14-07/26 vancomycin, BCx negative and wound Cx negative; plan 6 wk of IV vancomycin per ID, end date 07/26, PICC placed. Wound Care consulted and recommended=: Lumbar Back - Gently cleanse with NS moist gauze, Pat dry.? Apply skin prep barrier to periwound, lightly pack with Durafiber AG, (Spiral cut the sheet into one piece) be sure to leave a wick for easy removal.? Cover with dry gauze and ABD Pad dressing.? Change Daily while inpatient. Off Load Pressure with Q2 hr turns and use of pillows when in bed. Coccyx - Off Load Pressure with Q2 hr turns and use of pillows - Cleanse with PH balance spray or wipes, pat dry. ?Apply thin layer of Triad to wound bed. Do not remove all of paste between applications as this may cause further skin damage.? Cover with foam dressing to aid in off loading and protection from friction. Change every 3 days and PRN. She was discharged to [facility] for short-term rehabilitation. Time Attestation Discharge Coordination Time (in mins): 45 Quality: Safe Use of Opioids Does Pt have an Active Cancer Diagnosis on the Problem List?: No Quality: Stroke Does the patient have a stroke diagnosis?: No Physical Exam Vital Signs: Vital Signs: Last Vital Signs Temp 99.1 F 06/20/25 15:19 Pulse 78 06/20/25 15:19 Resp 20 06/20/25 15:19 BP 123/59 L 06/20/25 15:19 Pulse Ox 93 06/20/25 15:19 O2 Del Method Room Air 06/20/25 15:19 O2 Flow Rate 2 06/15/25 03:19 BMI result Body Mass Index 35.4 Gen: in no acute distress HEENT: sclera anicteric, moist mucus membranes Neck: supple Lungs: clear to auscultation bilaterally Heart: regular rate and rhythm, no murmurs Abd: soft, non-tender, non-distended Ext: no edema, no L knee swelling Skin: warm/well-perfused, lumbar wound with scant serous drainage Neuro: alert and oriented x3, no focal findings Psych: appropriate affect DS: Data Data Completed and Pending Completed studies during hospitalization [Text1]: Laboratory Results WBC 5.9 X10*3/uL (4.8-10.8) 06/17/25 08:59 RBC 3.23 X10*6/uL (4.20-5.50) L 06/17/25 08:59 Hgb 9.0 g/dl (12.0-16.0) L 06/17/25 08:59 Hct 27.8 % (37.0-47.0) L 06/17/25 08:59 MCV 86.1 fL (80.0-98.0) 06/17/25 08:59 MCH 27.9 pg (27.0-33.0) 06/17/25 08:59 MCHC 32.4 g/dl (31.0-35.0) 06/17/25 08:59 RDW 15.0 % (11.0-16.0) 06/17/25 08:59 Plt Count 373 X10*3/uL (160-400) 06/17/25 08:59 MPV 8.2 fL (9.4-12.3) L 06/17/25 08:59 Immature Gran % (Auto) 0.4 % (0.0-0.4) 06/15/25 04:41 Neut % (Auto) 60.0 % (45-73) 06/15/25 04:41 Lymph % (Auto) 32.4 % (20-40) 06/15/25 04:41 [place] % (Auto) 5.6 % (2-11) 06/15/25 04:41 Eos % (Auto) 1.1 % (0-4) 06/15/25 04:41 Baso % (Auto) 0.5 % (0-2) 06/15/25 04:41 Lymph # (Auto) 2.8 X10*3/uL (1.2-4.9) 06/15/25 04:41 [place] # (Auto) 0.5 X10*3/uL (0.1-1.2) 06/15/25 04:41 Eos # (Auto) 0.1 X10*3/uL (0.0-0.4) 06/15/25 04:41 Baso # (Auto) 0.0 X10*3/uL (0.0-0.2) 06/15/25 04:41 Abs Immat Gran (auto) 0.03 X10*3/uL (0.00-0.03) 06/15/25 04:41 Absolute Neuts (auto) 5.2 x10*3/uL (2.0-8.3) 06/15/25 04:41 Absolute Nucleated RBC 0.000 X10*3/uL (0.0-0.012) 06/17/25 08:59 Nucleated RBC % (auto) 0.0 /100WBC (0.0-0.2) 06/17/25 08:59 ESR 98 MM/HR (0-20) H 06/14/25 16:08 Hold Purple Top SEE NOTE 06/20/25 05:56 Sodium 139 mmol/L (135-145) 06/15/25 04:41 Potassium 4.3 mmol/L (3.3-5.1) 06/15/25 04:41 Chloride 107 mmol/L (96-108) 06/15/25 04:41 Carbon Dioxide 23 mmol/L (22-29) 06/15/25 04:41 Anion Gap 13 (12-20) 06/15/25 04:41 BUN 14 mg/dL (9-16) 06/15/25 04:41 Creatinine 0.76 mg/dL (0.5-1.4) 06/20/25 05:56 Estim Creat Clear Calc 90.4 06/20/25 05:56 Estimated GFR > 60 06/20/25 05:56 POC Glucose 106 mg/dL (60-115) 06/17/25 11:17 Random Glucose 93 mg/dL (60-115) 06/15/25 04:41 Lactic Acid 1.0 mmol/L (0.5-2.0) 06/14/25 20:58 Uric Acid 4.3 mg/dL (2.4-5.7) 06/14/25 16:08 Calcium 10.1 mg/dL (8.4-10.2) D 06/15/25 04:41 Ionized Calcium 5.8 mg/dL (4.7-5.5) H 06/15/25 04:41 Total Bilirubin 0.2 mg/dL (0.0-1.0) 06/15/25 04:41 AST 23 U/L (5-31) 06/15/25 04:41 ALT 10 U/L (0-31) 06/15/25 04:41 Alkaline Phosphatase 81 U/L (39-117) 06/15/25 04:41 C-Reactive Protein 0.83 mg/dL (< or = 0.50) H 06/19/25 05:37 Total Protein 7.0 g/dL (6.5-8.0) 06/15/25 04:41 Albumin 3.0 g/dL (3.5-5.0) L 06/15/25 04:41 1,25 Dihydroxy Vit D 11 pg/mL (18-72) L 06/15/25 04:41 1,25 Dihydroxy Vit D2 <8 pg/mL 06/15/25 04:41 1,25 Dihydroxy Vit D3 11 pg/mL 06/15/25 04:41 PTH Intact 31.3 pg/mL (8.7-77.1) 06/15/25 04:41 Urine Color Yellow 06/15/25 12:16 Urine Appearance Clear 06/15/25 12:16 Urine pH 5.5 (5.0-9.0) 06/15/25 12:16 Ur Specific [place] 1.020 (1.005-1.025) 06/15/25 12:16 Urine Protein Negative mg/dL (Neg-Trace) 06/15/25 12:16 Urine Glucose (UA) Negative mg/dL (Negative) 06/15/25 12:16 Urine Ketones Negative mg/dL (Negative) 06/15/25 12:16 Urine Blood Negative (Negative) 06/15/25 12:16 Urine Nitrite Negative (Negative) 06/15/25 12:16 Ur Leukocyte Esterase Trace (Negative) H 06/15/25 12:16 Urine RBC 0-2 /HPF (0-2) 06/15/25 12:16 Urine WBC 0-5 /HPF (0-5) 06/15/25 12:16 Ur Squamous Epith Cells 0-2 /HPF (0-2) 06/15/25 12:16 Urine Bacteria None Seen (None Seen) 06/15/25 12:16 Hyaline Casts 0-2 /LPF (0-2) 06/15/25 12:16 Vancomycin Trough 20.1 mcg/mL (10.0-20.0) H 06/20/25 08:54 Random Vancomycin 17.9 mcg/mL (15-20) 06/17/25 08:59 Impressions Knee X-Ray 06/17/25 11:00 IMPRESSION: Unremarkable examination of the left knee. Electronically signed by: Eduard Segura MD 06/19/2025 07:59 AM EDT RP Abdomen/Pelvis CT 06/20/25 13:21 IMPRESSION: 1. Findings consistent with vertebral discitis and osteomyelitis from L1 through L4 as described, with associated paraspinal inflammatory soft tissue and lymphadenopathy, as seen on MRI. 2. Probable left psoas abscess as described. Electronically signed by: Eduard Segura MD 06/20/2025 01:57 PM EDT RP Discharge Plan Discharge Anticipated Discharge Date/Time: 06/21/25 10:40 Patient Disposition: Xfer SNF Discharge Diagnosis: diskitis, osteomyelitis, psoas abscess left knee pain [facility] - 1 Week Festus Lang PA-C [Primary Care Provider, Internal Medicine] - 1 Week Zayda Ansari MD [Physician, Infectious Disease] - 2 Weeks Juan Diego Bull MD, PhD [Physician, Neuro Spine] - 2 Weeks Discharge Medications: New nicotine 14 mg/24 hr Patch 24 Hour 14 mg transdermal DAILY Qty: 1 0RF lidocaine [Lidocaine Pain Relief] 4 % Adhesive Patch,Medicated 1 patch transdermal DAILY Qty: 1 0RF Protocol: Apply to: Apply to: left knee anterior oxycodone 5 mg Tablet 10 mg PO Q4H PRN (Reason: Pain, Moderate(Pain Scale 4-6)) Qty: 36 0RF Rx Instructions: Partial Fill upon patient request. vancomycin in 0.9 % sodium chl 1 gram/250 mL solution 1 g IV Q12H Rx Instructions: Twice daily for 5 weeks. End date 07/26/2025 Continued diclofenac sodium 75 mg tablet,delayed release (DR/EC) 75 mg PO BID 90 Days Qty: 180 2RF magnesium oxide 250 mg magnesium tablet 250 mg PO DAILY 90 Days Qty: 90 2RF allopurinol 100 mg tablet 100 mg PO DAILY Qty: 30 11RF losartan 50 mg tablet 50 mg PO DAILY Qty: 90 5RF montelukast 10 mg tablet 10 mg PO DAILY 90 Days Qty: 90 8RF atorvastatin 40 mg tablet 40 mg PO DAILY 90 Days Qty: 90 1RF (DME) rollator walker with seat See Rx Instructions .Route .MEDSUPPLY Qty: 1 0RF Rx Instructions: As directed trazodone 100 mg tablet 400 mg PO BEDTIME 30 Days Qty: 120 6RF clonidine HCl 0.3 mg tablet 0.3 mg PO BEDTIME Qty: 90 2RF cyanocobalamin (vitamin B-12) [Vitamin B-12] 1,000 mcg tablet 1,000 mcg PO DAILY Qty: 90 1RF tizanidine 2 mg tablet 2 mg PO Q8H 15 Days Qty: 45 0RF omega-3 fatty acids 500 mg Capsule 500 mg PO DAILY baclofen 10 mg tablet 10 mg PO BID PRN (Reason: Muscle Spasm) albuterol sulfate 90 mcg/actuation HFA aerosol inhaler 1 puff INHALATION QID PRN (Reason: Shortness Of Breath Or Wheezing) pantoprazole 40 mg tablet,delayed release (DR/EC) 40 mg PO DAILY@0630 multivitamin Tablet 1 tab PO DAILY ergotamine-caffeine 1-100 mg tablet 1 tab PO Q30M MDD 6 mg PRN (Reason: migraine headache) 30 Days Qty: 30 7RF Rx Instructions: do not exceed 6 mg per day or 10 mg per wk Discharge Orders: Discharge Order (Routine); Ordered 06/21/25 Ordered By: Taj Fang Diet: Low salt diet Activity on Discharge: As tolerated Stand Alone Forms: Patient Portal Discharge page Print Language: Kazakh Care Plan Goals: recovery from infection Health Concerns: diskitis, osteomyelitis, psoas abscess left knee pain Plan of Treatment: short-term rehabilitation vancomycin 1000 mg every 12 hours, end date 07/26, then remove PICC weekly labs while on vancomycin: creatinine, vancomycin trough, CBC, CRP follow up with Dr Bull from [facility] Neurosurgery and Dr Ansari from [facility] Infectious Disease in 2 weeks; may need repeat imaging with MRI at that point if knee pain persists, follow up with [facility] Orthopedics Please follow up with your primary care doctor within 1 week of discharge from rehabilitation. Return to the hospital if you experience recurrent or worsening symptoms. Assessment: See Discharge Summary. Discharge Date/Time: 06/21/25 12:53
--- NOTE | 2025-06-20 16:26 | P.CDIM_ITS ---
PROVIDER RESPONSE TEXT: To clarify, the appropriate diagnosis supported by the clinical indicators: Pressure injury unstageable coccyx QUERY TEXT: PHYSICIAN'S DOCUMENTATION REQUEST Date of Query: 06/19/2025 08:10 AM EDT Patient Name: Vickie Carey Admit Date: 06/15/2025 Dear Chris Yanez MD, A review of the medical record indicates additional documentation may be needed. Please review below and update the documentation accordingly. Clinical Indicators: Wound care notes dated 06/16/25 - Coccyx: Unstageable pressure injury POA Triad for autolytic debridement. Based on the above, could you please provide further information regarding the ulcer/wound/injury: Pressure injury unstageable coccyx Diabetic ulcer Non-healing surgical wound Other (explain) Clinically unable to determine (explain) Thank you, Tashia Riedr, CCS, CDIS Use of terms such as suspected, likely, concern for, or probable (associated with a specific diagnosis that is being evaluated, monitored, or treated as if it exists) are acceptable and can be coded in the inpatient setting, when documented at the time of discharge. Please use your independent medical judgment in providing your response. THIS QUERY IS PART OF THE PERMANENT MEDICAL RECORD
--- NOTE | 2025-06-20 16:26 | P.CDIM_ITS ---
PROVIDER RESPONSE TEXT: To clarify, the appropriate diagnosis supported by the clinical indicators: Acute osteomyelitis QUERY TEXT: PHYSICIAN'S DOCUMENTATION REQUEST Date of Query: 06/19/2025 08:02 AM EDT Patient Name: Vickie Carey Admit Date: 06/15/2025 Dear Chris Yanez MD, A review of the medical record indicates additional documentation may be needed. Please review below and update the documentation accordingly. Clinical Indicators: Progress notes 06/16/25 - diskitis/osteomyelitis L1-L4 No operative intervention planned: ID 06/17/25 - The OM will look more destructive on repeat MRI since bone remodeling occurs. Plan for 6 we of IV Vancomycin per ID. PICC line ordered. S/P laminotomy, partial facetectomy and foraminotomy 03/14/25. Based on the above, please clarify in the Progress Notes further specificity regarding the acuity of the documented Osteomyelitis. Acute osteomyelitis Acute hematogenous osteomyelitis Subacute osteomyelitis Chronic osteomyelitis Chronic hemotogenous osteomyelitis Chronic multifocal osteomyelitis Chronic osteomyelitis with draining sinus Lane's abscess Other (explain) Clinically unable to determine (explain) Thank you, Tashia Rider, CCS, CDIS Use of terms such as suspected, likely, concern for, or probable (associated with a specific diagnosis that is being evaluated, monitored, or treated as if it exists) are acceptable and can be coded in the inpatient setting, when documented at the time of discharge. Please use your independent medical judgment in providing your response. THIS QUERY IS PART OF THE PERMANENT MEDICAL RECORD
[2025-06-20 19:55] VITALS: BP 125/70; PULSE 79; RESP 18; TEMP 36.7; O2SAT 95
[2025-06-20 20:20] VITALS: BP 125/70
[2025-06-21 03:38] VITALS: BP 122/86; PULSE 75; RESP 18; TEMP 36.7; O2SAT 93
[2025-06-21] MEDS: oxyCODONE HCl Immed Release 5 MG TABLET 10 MG PO (05:04)
[2025-06-21 06:31] LABS: Creatinine Clr Calc Pharmacy 95.4; Estimated Glomerular Filt Rate > 60
[2025-06-21 07:50] VITALS: BP 120/63; PULSE 71; RESP 18; TEMP 36.3; O2SAT 93
[2025-06-21] MEDS: 0.9 % Sodium Chloride Flush 3 ML SYRINGE IVFLUSH (07:57)
[2025-06-21] MEDS: Lidocaine 4 % Patch ADH..PATCH 1 PATCH TRANSDERMA (08:00)
[2025-06-21] MEDS: 0.9 % Sodium Chloride Flush 10 ML SYRINGE IVFLUSH (08:01)
--- NOTE | 2025-06-21 10:29 | MHC.CM.PN ---
pt is dcd to [facility] today at 12:30 via ksenia
--- NOTE | 2025-06-21 10:50 | MHC.CM.PN ---
pt dcd today to [facility] at 12:30 pt aware and annie notify
--- NOTE | 2025-06-21 12:14 | HO.WOUND ---
Wound Consult: Follow up 54yr old female admitted to [facility] on 06/14/25 - See progress notes and H&P for detailed history.? Wound consult follow up for Lumbar surgical site dehiscence and coccyx wound.? Patient is set for d/c today to rehab facility. Discussed smoking cessation at time of d/c from rehab and the benefits it will provide. Patient reported it was unlikely she would be able to abstain from smoking when she is able to smoke. Lumbar Area Etiology: ?Dehiscence Surgical Site ? Measurements: 2.5cm x 1cm x 2cm with a tunnel at 12 o'clock max depth of 4cm with gentle probing Wound Bed: area that is visible is moist pink with then veil of yellow slough Drainage / Odor: No odor noted - no drainage noted at the time of my assessment Edges: ? rolled and hyperpigmented Sonia wound: Intact no erythema,? No Induration, Fluctuance or Warmth noted Pain: denies Goals of Treatment: ? Light packing to aid in moisture management and allow for moist wound healing Coccyx 06/16/25 06/21/25 Etiology: ?Unstageable Pressure injury POA Measurements: 3cm x 1.4cm x 0.2 Wound Bed: adherent yellow slough - granulation buds noted Drainage / Odor: No odor noted - serous fluid Edges: ? Irregular and hyperpigmented Sonia wound: worsening MASD? No Induration, Fluctuance or Warmth noted Pain: mild pain reported when cleansed Goals of Treatment: ? Triad for autolytic debridement discontinue foam use Recommendations: 1. Turn and Reposition every 2 hours and as needed for patient comfort.? Use pillows or wedges to support off loading positions. 2. Off Load all bony prominences with use of pillows and heel boots if needed.? Apply Preventative foams where needed. ? 3. Monitor for incontinence and moisture control, use barrier creams when needed for prevention and treatment. 4. Provide adequate and supplemental nutrition.? 5. Order low air loss mattress. 6. When applicable maintain blood glucose levels per Providers order. Lumbar Back - Gently cleanse with NS moist gauze, Pat dry.? Apply skin prep barrier to periwound, lightly pack with Durafiber AG, (Spiral cut the sheet into one piece) be sure to leave a wick for easy removal.? Cover with dry gauze and ABD Pad dressing.? Change Daily while inpatient. Off Load Pressure with Q2 hr turns and use of pillows when in bed. Coccyx - Off Load Pressure with Q2 hr turns and use of pillows - Cleanse with PH balance spray or wipes, pat dry. ?Apply thin layer of Triad to wound bed. Do not remove all of paste between applications as this may cause further skin damage.? Cover with foam dressing to aid in off loading and protection from friction. Change every 3 days and PRN. Re-consult wound care Nurse for wound deterioration or wound changes.
[2025-06-21 12:21] VITALS: BP 124/57; PULSE 73; RESP 18; TEMP 37.1; O2SAT 93
== END 2025-06-21 12:53 | disposition skilled nursing facility (03) | DRG 862 ==
LOC: HO.ED 21:14 → HO.EDOVER 21:21 → HO.S3 06-15 14:00
PROVIDERS: Family Medicine; Internal Medicine; Admitting Provider Nurse Practitioner Family; Emergency Provider Emergency Medicine Emergency Medical Services; PCP Physician Assistant; Visit Provider Hospitalist
DX: T81.42XA Infection following a procedure, deep incisional surgical site, initial encounter (principal); K68.12 Psoas muscle abscess; M46.26 Osteomyelitis of vertebra, lumbar region; L76.34 Postprocedural seroma of skin and subcutaneous tissue following other procedure; J45.20 Mild intermittent asthma, uncomplicated; M10.9 Gout, unspecified; I10 Essential (primary) hypertension; M46.46 Discitis, unspecified, lumbar region; M25.562 Pain in left knee; E78.5 Hyperlipidemia, unspecified; E11.9 Type 2 diabetes mellitus without complications; Y83.8 Other surgical procedures as the cause of abnormal reaction of the patient, or of later complication, without mention of misadventure at the time of the procedure; E83.52 Hypercalcemia; E86.0 Dehydration; Z86.14 Personal history of Methicillin resistant Staphylococcus aureus infection; L89.150 Pressure ulcer of sacral region, unstageable; Z79.899 Other long term (current) drug therapy
CPT/HCPCS: 36415; 36573; 72158; 73562; 74177; 80053; 80202; 81001; 82330; 82565; 82652; 82947; 83605; 83970; 84550; 85025; 85027; 85652; 86140; 87040; 87070; 87205; 97162; 97530; 99285; A9585; C1751; J0131; J1171; J1650; J2405; J2470; J2543; J3373; J3374; J3475; Q9967

== ENCOUNTER → 2025-06-14 17:02 | Outpatient (BNV) | payer MEDICARE, MEDICAID, SELFPAY | PROVIDERS: Emergency Provider Emergency Medicine Emergency Medical Services; PCP Physician Assistant; Visit Provider Radiology Diagnostic Radiology | DX: K68.12 Psoas muscle abscess (principal) | CPT/HCPCS: 72158 ==

== ENCOUNTER 2025-06-14 21:02 | Outpatient (BNV) | payer MEDICARE, MEDICAID, SELFPAY | END 2025-06-17 11:00 | PROVIDERS: Admitting Provider Nurse Practitioner Family; Emergency Provider Emergency Medicine Emergency Medical Services; PCP Physician Assistant; Visit Provider Radiology Diagnostic Radiology | DX: M25.562 Pain in left knee (principal) | CPT/HCPCS: 73562 ==

== ENCOUNTER 2025-06-14 21:02 | Outpatient (BNV) | payer MEDICARE, MEDICAID, SELFPAY | END 2025-06-20 13:21 | PROVIDERS: Admitting Provider Nurse Practitioner Family; Emergency Provider Emergency Medicine Emergency Medical Services; PCP Physician Assistant; Visit Provider Radiology Diagnostic Radiology | DX: K68.12 Psoas muscle abscess (principal) | CPT/HCPCS: 74177 ==

== ENCOUNTER → 2025-06-14 21:02 | Outpatient (BNV) | payer MEDICARE, MEDICAID, SELFPAY | PROVIDERS: Admitting Provider Nurse Practitioner Family; Emergency Provider Emergency Medicine Emergency Medical Services; PCP Physician Assistant; Visit Provider Physician Assistant | DX: T81.49XA Infection following a procedure, other surgical site, initial encounter (principal) | CPT/HCPCS: 99222 ==

== ENCOUNTER → 2025-06-14 21:02 | Outpatient (BNV) | payer MEDICARE, MEDICAID, SELFPAY | PROVIDERS: Admitting Provider Nurse Practitioner Family; Emergency Provider Emergency Medicine Emergency Medical Services; PCP Physician Assistant; Visit Provider Nurse Practitioner Family | DX: M46.40 Discitis, unspecified, site unspecified (principal); K68.12 Psoas muscle abscess | CPT/HCPCS: 99223; 99232 ==

== ENCOUNTER → 2025-06-14 21:02 | Outpatient (BNV) | payer MEDICARE, MEDICAID, SELFPAY | PROVIDERS: Admitting Provider Nurse Practitioner Family; Emergency Provider Emergency Medicine Emergency Medical Services; PCP Physician Assistant; Visit Provider Internal Medicine | DX: K68.12 Psoas muscle abscess (principal) | CPT/HCPCS: 99222 ==

== ENCOUNTER → 2025-06-14 21:02 | Outpatient (BNV) | payer MEDICARE, MEDICAID, SELFPAY | PROVIDERS: Admitting Provider Nurse Practitioner Family; Emergency Provider Emergency Medicine Emergency Medical Services; PCP Physician Assistant | DX: M25.562 Pain in left knee (principal) | CPT/HCPCS: 99222 ==

== ENCOUNTER 2025-06-26 13:31 | Outpatient (AMB) | payer MEDICARE, MEDICAID, SELFPAY ==
--- NOTE | 2025-06-26 13:40 | MHC.OFFVIS ---
Vital Signs 06/26/25 13:47 Pulse 83 Pulse Source Pulse Oximeter Temp 98.5 F Temp Source Oral Pulse Oximetry (%) 98 Intake Visit Reasons: Spinal Abscess 2 week F/U Allergies gabapentin Allergy (Intermediate, Verified 06/26/25 13:47) Nausea and Vomiting morphine (Morphine) Allergy (Intermediate, Verified 06/26/25 13:47) VOMITING oxycodone (Percocet) Allergy (Intermediate, Verified 06/26/25 13:47) Vomiting methocarbamol Adverse Reaction (Intermediate, Verified 06/26/25 13:47) GI upset HPI Comments Details: History of Present Illness The patient is a 54-year-old female presenting with a history of MRSA spinal infection, primarily post hospitalization follow-up. She underwent spinal surgery in early March for degenerative joint disease and spinal stenosis, involving a laminectomy at L3-L4 and L4-L5. Post-surgery, she experienced wound drainage that did not resolve with initial oral antibiotics, necessitating ER admission where MRSA was isolated from blood cultures over multiple dates beginning April 07. An echocardiogram conducted during this period found no abnormalities, and a six-week daptomycin course was administered. Blood cultures cleared Later, she experienced increasing pain upon walking. A follow-up imaging study in early June revealed discitis, osteomyelitis, and a left iliopsoas abscess. She was treated with vancomycin, with therapeutic levels maintained in her last hospitalization course. Discharged earlier this month, she reports residing in a rehabilitation facility, though she indicates dissatisfaction due to mobility challenges and some urinary incontinence and scalding areas skin with urine exposure. She reportedly walks with assistance when possible. Review of Systems - General: Denies fever. - Cardiovascular: Denies palpitations. - Respiratory: Denies cough, shortness of breath. - Gastrointestinal: Denies abdominal pain. - Genitourinary: Reports urinary incontinence. - Musculoskeletal: Reports pain upon walking. - Neurological: Denies headaches or focal deficits. Physical Exam - General- Presented in a wheelchair. - Respiratory- Lungs clear to auscultation. - Cardiac- Regular rate and rhythm. - Gastrointestinal- Abdomen soft and non-tender. - Neurological- Extremities with full range of motion; reduced comfort in standing. Results - Blood Cultures: Positive for MRSA (dates: 04/07, 04/08, 04/11, 04/12). - Echocardiogram: Unremarkable. - Imaging (date: 06/14): Discitis, osteomyelitis at L1-L4 and left iliopsoas abscess, subcutaneous fluid collection 2.4 x 1.4 cm. Plan Patient was informed and verbally consented to the use of an ambient scribe for clinic note documentation during this visit. 1. Methicillin-Resistant Staphylococcus Aureus Mrsa Bacteremia This has resolved. 2. 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 3. Left Iliopsoas Abscess The current treatment course involves ongoing vancomycin administration. Future imaging studies should be scheduled to evaluate abscess resolution. Discussion Notes I discussed with the patient her current condition related to prior MRSA and spinal infection, emphasizing the necessity of continuing vancomycin to treat bone involvement as bone involvement not curable but suppressible hopefully. We discussed the importance of maintaining monitoring of vancomycin trough levels and renal function weekly to prevent nephrotoxicity. I reiterated the importance of follow-up with neurosurgery .Additionally, I addressed her concerns about rehabilitation facility care, highlighting the significance of mobility and encouraged discussions with staff to ensure optimal support. Medical Decision Making The patient?s initial presentation of persistent pain guided my decision to continue intravenous vancomycin therapy, bone infection suppression,although resolution not possible. The need for ongoing neurosurgical consultation arises from the potential for structural complications arising from osteomyelitis. Monitoring of renal function and vancomycin levels is pivotal to avoid treatment-associated toxicity. The primary objectives include infection control and alleviation of mobility-related functional impairments. Patient Instructions - Continue intravenous antibiotics as prescribed. - Attend weekly appointments for blood tests and vancomycin level monitoring. - Discuss incontinence issues with rehab staff for timely assistance. - Follow up with the neurosurgeon as planned. - Report any new symptoms or side effects immediately. See in 3 weeks. [facility] Medical History MRSA (methicillin resistant Staphylococcus aureus) infection Anemia Anxiety MDD (major depressive disorder) Gout GERD (gastroesophageal reflux disease) Ambulates with cane Smoker Hyperuricemia Asthma Obese Osteoarthritis Trigger finger Carpal tunnel syndrome Hyperlipidemia LDL goal <100 Essential hypertension Hyperlipidemia Cellulitis, umbilical Surgical History History of esophagogastroduodenoscopy (EGD) Hx of colonoscopy History of laparoscopic appendectomy History of foot surgery History of carpal tunnel release H/O: hysterectomy Family History Father Diabetes Hypertension Stroke Heart attack, Onset Age: 50 Mother Multiple sclerosis Brother In good health Son In good health Son In good health Other Patient denies medical problems Social History Household Members: Spouse and Children Housing: Apartment Are you a primary resident care director to a significant other at home: No Do you presently have visiting nurse or other home services: Yes ([facility]) Alcohol intake: current Alcohol intake frequency: holidays/special occasions only Alcohol type: beer Patient Tobacco Use Status: Current everyday Tobacco user Tobacco use type: Cigarette Cigarette Packs Per Day: 0.5 Cigarettes Per Day: 10.0 Years Smoked: 46 e-Cigarette/Vaping Use: Never Used Second Hand Smoke Exposure: Yes service: No Current occupational status: disabled Cognitive needs: No Hearing needs: No Vision needs: Yes (glasses) Physical Exam Vital Signs: Last Vital Signs Temp 98.5 F 06/26/25 13:47 Pulse 83 06/26/25 13:47 Pulse Ox 98 06/26/25 13:47 Assessment & Plan Assessment & Plan (1) Iliopsoas abscess: Code(s): K68.12 - Psoas muscle abscess Category: Medical Plan: n/a Plan n/a Orders: Orders Vancomycin Trough 2 Weeks K68.12 - Psoas muscle abscess Creatinine 3 Weeks K68.12 - Psoas muscle abscess Vancomycin Trough 1 Week K68.12 - Psoas muscle abscess Vancomycin Trough 3 Weeks K68.12 - Psoas muscle abscess Creatinine 1 Week K68.12 - Psoas muscle abscess Creatinine 2 Weeks K68.12 - Psoas muscle abscess Coding Level of Care Code Est Pt Level 3 (95993) Diagnoses Iliopsoas abscess K68.12
[2025-06-26 13:47] VITALS: PULSE 83; TEMP 36.9; O2SAT 98
== END 2025-06-26 14:09 | disposition home or self-care (01) ==
LOC: HO.HID 13:31
PROVIDERS: PCP Physician Assistant; Visit Provider Internal Medicine
DX: K68.12 Psoas muscle abscess (principal)
CPT/HCPCS: 99213

== ENCOUNTER → 2025-06-26 13:31 | Outpatient (BNVA) | payer MEDICARE, MEDICAID, SELFPAY | PROVIDERS: PCP Physician Assistant; Visit Provider Internal Medicine | DX: K68.12 Psoas muscle abscess (principal) | CPT/HCPCS: 99212 ==

== ENCOUNTER 2025-07-31 11:02 | Outpatient (REF) | payer MEDICARE, MEDICAID, SELFPAY ==
[2025-07-31 11:24] LABS: MANUAL DIFF FLAG NO
[2025-07-31 11:55] LABS: Hematocrit 38.6 % (37.0-47.0); Hemoglobin 12.3 g/dl (12.0-16.0); Imm Gran Abs Auto 0.01 X10*3/uL (0.00-0.03); Imm Gran Pct Auto 0.2 % (0.0-0.4); Lymphocytes Absolute Auto 2.0 X10*3/uL (1.2-4.9); Mean Corpuscular HGB Conc 31.9 g/dl (31.0-35.0); Mean Corpuscular Hemoglobin 28.0 pg (27.0-33.0); Mean Corpuscular Volume 87.9 fL (80.0-98.0); NRBC Abs Auto 0.000 X10*3/uL (0.0-0.012); NRBC Pct Auto 0.0 /100WBC (0.0-0.2); Platelet Count 313 X10*3/uL (160-400); Red Blood Count 4.39 X10*6/uL (4.20-5.50); White Blood Count 6.3 X10*3/uL (4.8-10.8)
[2025-07-31 12:28] LABS: Alanine Aminotransferase 14 U/L (0-31); Albumin Level 4.2 g/dL (3.5-5.0); Alkaline Phosphatase 114 U/L (39-117); Anion Gap 15 (12-20); Aspartate Amino Transferase 19 U/L (5-31); Blood Urea Nitrogen 15 mg/dL (9-16); Calcium 10.7 mg/dL (8.4-10.2); Carbon Dioxide 23 mmol/L (22-29); Chloride 106 mmol/L (96-108); Estimated Glomerular Filt Rate > 60; Potassium 4.1 mmol/L (3.3-5.1); Sodium 140 mmol/L (135-145); Total Protein 8.1 g/dL (6.5-8.0)
== END 2025-07-31 11:03 | disposition home or self-care (01) ==
LOC: HO.LAB 11:02
PROVIDERS: PCP Physician Assistant; Visit Provider Nurse Practitioner
DX: Z13.89 Encounter for screening for other disorder (principal)
CPT/HCPCS: 36415; 80053; 85025; 86140

== ENCOUNTER 2025-08-09 13:59 | Outpatient (AMB) | payer MEDICARE, MEDICAID, SELFPAY ==
--- NOTE | 2025-08-09 14:05 | A.SPINEOV_ITS ---
Intake Visit Reasons: Follow up from sx & sepsis 03/14 Intake Note: Mrs. Carey is here today for a F/u. Rubber Splicer Required: No Allergies gabapentin Allergy (Intermediate, Verified 06/26/25 13:47) Nausea and Vomiting morphine (Morphine) Allergy (Intermediate, Verified 06/26/25 13:47) VOMITING oxycodone (Percocet) Allergy (Intermediate, Verified 06/26/25 13:47) Vomiting methocarbamol Adverse Reaction (Intermediate, Verified 06/26/25 13:47) GI upset Assessment & Plan Assessment & Plan (1) Wound infection after surgery: Comment: She feels well Code(s): T81.49XA - Infection following a procedure, other surgical site, initial encounter Category: Medical Plan Vickie is a 54-year-old female known to Dr. Bull from L4-5 decompression surgery about 5 months ago, who had postoperative infection about a month out from surgery which seems to have persisted for the past 4 months or so despite multiple therapeutic interventions attempted by our colleagues in infectious disease. She made an appointment to come in and see us today because she is very frustrated with her progress overall. She states that she recently discharged from rehab about 2 weeks ago, and right around the time she was about the discharge her IV vancomycin stopped, and she was transitioned to Bactrim oral tablets. She states that right around the time she was transitioned to Bactrim she began experiencing very intense worsening low back pain alongside shooting pain into her right groin. She states that she has learned to identify this specific type of pain that she is experiencing now to be associated with her infection when it is flaring up and/or worsening. She is very concerned that after transition to her oral antibiotics the infection ?ramped back up. The pain is now the worst it has been since onset per her report, and is waking her up at night in tears. She is requesting that we order additional imaging and labs to ensure her infection is not worsening. She has been getting regular wound care (going to wound care clinic) and is scheduled to be seen there tomorrow. She states she does not have a follow up scheduled with infectious disease. She denies any at-home fever, nausea, vomiting, diarrhea, chills. On examination the patient is in obvious discomfort/pain. She ambulates with the assistance of her walker, however is able to stand independently by bracing herself on the chair. Her back wound remains open about the size of a dime, and is packed with packing. Pleasant 54-year-old female who underwent L4-[address] Bull about 5 months ago. She is reporting increased severity of her pain worse than it has been since her surgery. She feels that her infection is worsening. I informed her that her care related to her infection is being managed by our Infectious Disease team, and that there is no indication for surgery at this time. I will need to reach out to our Infectious Disease team to see if they would like any labs or imaging completed. I will have one of our medical assistants call and update the patient after I hear back from ID. In the interim, I encouraged her to reach out to her primary care office to discuss the possibility of being put on pain medication while she clears her infection. Osteomyelitis / discitis is a very painful infection for patients. Sumeet Bull MD,PhD [facility] Coding Level of Care Code Global (54194) Diagnoses Wound infection after surgery T81.49XA
== END 2025-08-09 14:59 | disposition home or self-care (01) ==
LOC: HO.HNS 14:00
PROVIDERS: PCP Physician Assistant; Visit Provider Physician Assistant
DX: T81.49XA Infection following a procedure, other surgical site, initial encounter (principal)
CPT/HCPCS: 99214

== ENCOUNTER → 2025-08-09 13:59 | Outpatient (BNVA) | payer MEDICARE, MEDICAID, SELFPAY | PROVIDERS: PCP Physician Assistant; Visit Provider Physician Assistant | DX: T81.49XD Infection following a procedure, other surgical site, subsequent encounter (principal) | CPT/HCPCS: 99212 ==

== ENCOUNTER 2025-08-14 13:59 | Outpatient (AMB) | payer MEDICARE, MEDICAID, SELFPAY ==
[2025-08-14 14:36] VITALS: BP 136/72; PULSE 88; TEMP 37; O2SAT 95
--- NOTE | 2025-08-14 14:36 | A.OFFVIS_ITS ---
Vital Signs 3 08/14/25 14:36 BP 136/72 Pulse 88 Temp 98.6 F Temp Source Oral Pulse Oximetry (%) 95 Intake Visit Reasons: 1 Month F/U Allergies gabapentin Allergy (Intermediate, Verified 08/16/25 12:13) Nausea and Vomiting morphine (Morphine) Allergy (Intermediate, Verified 08/16/25 12:13) VOMITING oxycodone (Percocet) Allergy (Intermediate, Verified 08/16/25 12:13) Vomiting methocarbamol Adverse Reaction (Intermediate, Verified 08/16/25 12:13) GI upset HPI HPI 1 Month F/U: Details: HPI Comments Details: History of Present Illness The patient is a 54-year-old female presenting with increased pain and worsening discomfort after finishing her Bactrim course. She has a relevant medical history including osteomyelitis and discitis in the L1-L4 region secondary to MRSA, post-surgery. She was treated with courses of daptomycin, six weeks of IV vancomycin, followed by a course of Bactrim. Since completing Bactrim, the patient has reported a significant increase in pain and discomfort, especially with ambulation, and now heavily relies on a walker. Her daily activities have become challenging. At the last assessment, a draining fistula was noted at the site, with yellowish and malodorous discharge, suggesting an ongoing infectious process. Review of Systems - Musculoskeletal: Reports worsening back pain. - Extremities: Reports discomfort in back and spine area. - General: Reports difficulty with activities of daily living; Reports utilizing a walker. Physical Exam - Temperature- 98.6?F, afebrile - Lungs- Clear - Cardiovascular- Heart rate rhythm regular - Abdomen- Soft, non-tender - Extremities- Discomfort in back and spine area - Skin- Presence of fistula with yellowish, foul-smelling drainage Results Plan Patient was informed and verbally consented to the use of an ambient scribe for clinic note documentation during this visit. 1. Osteomyelitis And Discitis Of L1-L4 Post-Surgery With Mrsa A coordinated evaluation with the neurosurgery team is needed to ascertain the necessity of further surgical intervention or drainage, informed by a detailed MRI. No additional IV antibiotics will be administered until hardware coating or abscess drainage is addressed. 2. Left Iliopsoas Muscle Abscess 4 Cm Requires re-assessment through MRI. Neurosurgery will evaluate for potential drainage requirements. Imaging will determine subsequent treatment steps, tailored to current severity and potential spread. Discussion Notes I discussed with the patient the current challenges faced with the treatment of her MRSA-related osteomyelitis and discitis, and the associated muscle abscess. I explained the risks of persistent infection and the importance of re- evaluation via MRI to confirm the presence of abscesses or any issues.. I also touched upon the potential need for surgery and postponed further antibiotic treatment until the neurosurgical consultation. I arranged for an immediate ER visit due to her pain and inability to stand, emphasizing the urgency of advanced imaging and potential intervention. Patient and her understood the plan, including potential surgical revision, follow-ups, and anticipatory guidance. Medical Decision Making The complexity of this case necessitates a judicious approach to managing the documented MRSA infection with involvement of both osteomyelitis and a muscle abscess. The patient's symptoms indicate a probable progression of infection or related complications. An MRI will provide clarity on the need for surgical intervention, specifically whether irrigation or drainage of an abscess Immediate further antibiotic administration is paused, as unnecessary treatment without addressing the primary abscess or could contribute to antibiotic resistance. I also considered the impacts on the patient's mobility and discussed possible surgical options, understanding their implications and preparing for coordinating care with neurosurgery. Patient Instructions - Go to the ER today due to severe pain when standing and potential increased infection risk. - Expect further tests, possibly an MRI, to assess the situation with your back and potential abscess. - Be ready for a follow-up appointment to discuss the outcomes of the neurosurgical consultation . - Appeal to family support to assist with daily activities due to mobility issues. - Return to care immediately if symptoms worsen or if new symptoms develop. [facility] Medical History (Updated 08/17/25 @ 12:14 by Bharat Jackson MD) Abdominal pain MRSA (methicillin resistant Staphylococcus aureus) infection Anemia Anxiety MDD (major depressive disorder) Gout GERD (gastroesophageal reflux disease) Ambulates with cane Smoker Hyperuricemia Asthma Obese Osteoarthritis Trigger finger Carpal tunnel syndrome Hyperlipidemia LDL goal <100 Essential hypertension Hyperlipidemia Cellulitis, umbilical Surgical History History of esophagogastroduodenoscopy (EGD) Hx of colonoscopy History of laparoscopic appendectomy History of foot surgery History of carpal tunnel release H/O: hysterectomy Family History Father Diabetes Hypertension Stroke Heart attack, Onset Age: 50 Mother Multiple sclerosis Brother In good health Son In good health Son In good health Other Patient denies medical problems Social History Household Members: Family Housing: Apartment Are you a primary physician assistant primary care to a significant other at home: No Do you presently have visiting nurse or other home services: Yes ([facility] 2x week) Alcohol intake: current Alcohol intake frequency: holidays/special occasions only Alcohol type: beer Patient Tobacco Use Status: Current everyday Tobacco user Tobacco use type: Cigarette Cigarette Packs Per Day: 0.5 Cigarettes Per Day: 7 Years Smoked: 46 Smoked in Last 30 Days: Yes e-Cigarette/Vaping Use: Never Used Patient Interested in Nicotine Replacement: No Patient Given Instructions on How to Stop Smoking: No Second Hand Smoke Exposure: Yes Use of substances other than those prescribed or required for medical reasons: No Currently Displaying Signs/Symptoms of Drug Intoxication Withdrawal: No Have you been hit, kicked, punched, or otherwise hurt by someone within the past year? If so, by whom?: No Do you feel safe in your current relationship?: Yes Is there a partner from a previous relationship who is making you feel unsafe now?: No Are you made to feel afraid or neglected: No Advance Directives: No Advance Directives Information Provided: No Do you have a plan to hurt others: No Plan Recently lost weight without trying: No How much weight loss: Not applicable Eating poorly because of decreased appetite: No Nutrition screen score: 0 Nutrition Risks: No Nutritional Risk Patient : No : No Poor oral hygiene: No service: No Current occupational status: disabled Cognitive needs: No Hearing needs: No Vision needs: Yes (glasses) Physical Exam Vital Signs: Last Vital Signs Temp 98.6 F 08/14/25 14:36 Pulse 88 08/14/25 14:36 BP 136/72 08/14/25 14:36 Pulse Ox 95 08/14/25 14:36 Assessment & Plan Assessment & Plan (1) Wound infection after surgery: Code(s): T81.49XA - Infection following a procedure, other surgical site, initial encounter Category: Medical Plan: per above (2) Diskitis: Code(s): M46.40 - Discitis, unspecified, site unspecified Category: Medical Plan: na (3) Osteomyelitis: Code(s): M86.9 - Osteomyelitis, unspecified Category: Medical Plan: as above Medications: New 2 sulfamethoxazole-trimethoprim 800-160 mg (Bactrim DS) 1 tab PO BID 30 days 60 tabs 0RF Coding Level of Care Code Est Pt Level 3 (72791) Diagnoses Wound infection after surgery T81.49XA Diskitis M46.40 Osteomyelitis M86.9
== END 2025-08-14 15:11 | disposition home or self-care (01) ==
LOC: HO.HID 13:59
PROVIDERS: PCP Physician Assistant; Visit Provider Internal Medicine
DX: T81.49XA Infection following a procedure, other surgical site, initial encounter (principal); M46.40 Discitis, unspecified, site unspecified; M86.9 Osteomyelitis, unspecified
CPT/HCPCS: 99213

== ENCOUNTER 2025-08-16 12:02 | Inpatient (IN) | payer MEDICARE, MEDICAID, SELFPAY ==
[2025-08-16] VITALS (8 sets, daily range): BP systolic 83–125; BP diastolic 54–79; PULSE 72–108; RESP 14–18; TEMP 36.1–36.7; O2SAT 95–98; BMI 34.0; BMI 33.6
--- NOTE | ~2025-08-16 | MR_ITS ---
EXAM: MRI lumbar spine without and with IV contrast TECHNIQUE: Multiplanar multisequence imaging was performed through the lumbar spine without and with contrast. INDICATION: Recent epidural abscess, discitis, and iliopsoas abscess, follow-up CONTRAST: 9 mL Gadavist PRIOR: June 14, 2025 FINDINGS: 5 non-rib bearing lumbar segments are assumed for numbering purposes. There are no marrow replacing lesions. Left psoas muscle abscess has decreased in size since the prior examination. It measures 3.0 x 0.7 x 0.8 cm and previously measured 12 x 1.3 x 1.8 cm (CC by transverse by AP). Postoperative fluid collection in the subcutaneous soft tissues dorsal to L3-4 with thick rind of peripheral enhancement is again noted. It has concave margin and has decreased in size. Fluid collection measures 1.1 x 0.3 x 2.5 cm and previously measured 3.2 x 1.2 x 2.9 cm apparent cc by transverse by AP). The termination of conus medullaris is within normal limits at the level of upper L2. Again seen is replacement of marrow signal in L1, sparing the superior endplate, throughout L2, and L3, sparing the inferior endplate. T1 signal is isodense slightly hyperintense to skeletal muscle. Fluid sensitive sequence, there is heterogeneous hyper intensity. In the posterior L2 vertebral body, there is an area that demonstrates low signal on T1 imaging and high signal on fluid sensitive sequences measuring 1.9 x 1.0 x 0.6 cm (CC by AP by transverse) with concordant enhancement. Signal changes and enhancement have increased in L1 and decreased and L3. There is fluid signal in the L1-L2 interbody space. There is obliteration of the L2-3 space and a fluid collection in the left interbody space with serpentine margins without a peripheral rind of hyperenhancement. L3-4 disc demonstrates mild increased signal fluid sensitive sequences and mild hyperenhancement. There is mild loss of height of inferior L1, severe loss of height of L2, and moderate loss of height at L3, increased since the prior. There is persistent moderate spinal stenosis at L1-2, severe spinal stenosis at L2-3, L3-4, and moderate spinal stenosis at L4-5. Hyperenhancement of paraspinal musculature has overall decreased compared to the prior. There is persistent hyperenhancement most pronounced in the dorsal lumbar musculature in the region of L4-S2. MR/MR lumbar spine wo/w con IMPRESSION: Interval progression of destructive changes related to osteomyelitis and discitis involving L1-L3 4 disc space. There is overall increased extent of involvement within L1 and decreased changes in L3. There has been near resolution of the left psoas muscle abscess. . Also, there is evidence of improving myositis involving the paraspinal musculature. There is interval decrease in postoperative fluid, likely seroma, in the subcutaneous soft tissues dorsal to L3-4. No epidural abscess is demonstrated. Stable multifocal spinal stenosis. Electronically signed by: Chava Rosario MD 08/16/2025 05:30 PM EST
--- NOTE | 2025-08-16 12:14 | ED_ITS ---
HPI - General Adult General Chief complaint: Abdominal Pain Stated complaint: Asthma Time Seen by Provider: 08/16/25 13:25 Source: patient and family ( ) Mode of arrival: ambulatory Limitations: no limitations History of Present Illness ED Provider: CARLY HUNTER PA-C HPI narrative: 54 year old female with pmhx significant for HTN, HLD, T2DM, GERD, current tobacco smoker presents to the ED today with concerns of worsening spinal infection. Patient has quite a recently complex history. Patient had laminectomy performed by Dr. Bull in March of this year, followed by osteomyelitis and diskitis in the L1-L4 region secondary to post surgical MRSA. She presented to our facility septic, had PICC line placed in completed a course of IV antibiotics. She then developed an abscess to the left iliopsoas muscle as a complication. She had PICC line placed for the second time and completed a second course of antibiotics. She was recently discharged from a rehab facility 2 weeks ago, subsequently completing a course of p.o. antibiotics. Reports worsening pain to her mid back along surgical site and lower abdomen. Pain is a 9-10/10. Admits to increased purulent drainage from surgical site. She followed up with ID (Dr. Ansari) two days ago who noted a draining fistula at the surgical site with yellowish and malodorous discharge suggestive of an ongoing infectious process . She was advised to return to the ED for further workup, lumbar MRI and IV antibiotics. She denies fever, chills, neck pain, N/V, diarrhea, constipation, urinary sx. Denies numbness/tingling/weakness of the lower extremities, saddle anesthesia, bowel or bladder incontinence or retention. Denies history of IV drug use. Denies new injury or trauma to the area Related Data Home Medications ?Medication ?Instructions ?Recorded ?Confirmed multivitamin 1 tab PO DAILY 07/31/2203/05 omega-3 fatty acids 500 mg capsule 500 mg PO DAILY 08/16/25 baclofen 10 mg tablet 10 mg PO BID PRN Muscle Spas m 04/08/25 08/16/25 albuterol sulfate 90 mcg/actuation 1 puff inhalation Q ID PRN 06/14/25 08/16/25 aerosol inhaler Shortness Of Breath Or Wheez ing lidocaine 4 % topical patch 1 patch transdermal DAILY PRN Pain 08/16/25 08/16/25 (Lidocaine Pain Relief) pantoprazole 40 mg tablet,delayed 40 mg PO DAILY@0630 08/16/25 08/16/25 release Previous Rx's ?Medication ?Instructions ?Recorded diclofenac sodium 75 mg 75 mg PO BID 90 days #180 ta bs 03/22/24 tablet,delayed release losartan 50 mg tablet 50 mg PO DAILY #90 tabs 02/03 montelukast 10 mg tablet 10 mg PO DAILY 90 days #90 t abs 01/18/25 ergotamine 1 mg-caffeine 100 mg 1 tab PO Q30M PRN migr ghada 02/01/25 tablet headache 30 days #30 tabs rollator walker with seat #1 ea 02/20/25 clonidine HCl 0.3 mg tablet 0.3 mg PO BEDTIME #90 tabs 03/27/25 cyanocobalamin (vitamin B-12) 1,000 mcg PO DAILY #90 t abs 03/27/25 1,000 mcg tablet (Vitamin B-12) tizanidine 2 mg tablet 2 mg PO Q8H muscle spasticit y 15 07/03/25 days #45 tabs allopurinol 100 mg tablet 100 mg PO DAILY #30 tabs atorvastatin 40 mg tablet 40 mg PO DAILY 90 days #90 t abs 08/11/25 magnesium oxide 250 mg PO DAILY 90 days #90 tabs 08/11/25 trazodone 100 mg tablet 400 mg (4 x 100 mg) PO BEDTI ME 30 08/14/25 days #120 tabs Allergies Allergy/AdvReac Type Severity Reaction Status Date / Time gabapentin Allergy Intermediate Nausea and Verified 08/16/25 12:13 Vomiting morphine (Morphine) Allergy Intermediate VOMITING Verified 08/16/25 12:13 oxycodone (Percocet) Allergy Intermediate Vomiting Verified 08/16/25 12:13 methocarbamol AdvReac Intermediate GI upset Verified 08/16/25 12:13 Review of Systems 2 Review of Systems: Yes all other systems are reviewed and are negative PMFSH Past Medical History Attestation statement: The following information was validated with the patient. Source: old records reviewed Medical History MRSA (methicillin resistant Staphylococcus aureus) infection Anemia Anxiety MDD (major depressive disorder) Gout GERD (gastroesophageal reflux disease) Ambulates with cane Smoker Hyperuricemia Asthma Obese Osteoarthritis Trigger finger Carpal tunnel syndrome Hyperlipidemia LDL goal <100 Essential hypertension Hyperlipidemia Cellulitis, umbilical Surgical History History of esophagogastroduodenoscopy (EGD) Hx of colonoscopy History of laparoscopic appendectomy History of foot surgery History of carpal tunnel release H/O: hysterectomy Family History Family History Father Diabetes Hypertension Stroke Heart attack, Onset Age: 50 Mother Multiple sclerosis Brother In good health Son In good health Son In good health Other Patient denies medical problems Social History Social History Household Members: Family Housing: Apartment Are you a primary home care liaison to a significant other at home: No Do you presently have visiting nurse or other home services: Yes ([facility] 2x week) Alcohol intake: current Alcohol intake frequency: holidays/special occasions only Alcohol type: beer Patient Tobacco Use Status: Current everyday Tobacco user Tobacco use type: Cigarette Cigarette Packs Per Day: 0.5 Cigarettes Per Day: 7 Years Smoked: 46 Smoked in Last 30 Days: Yes e-Cigarette/Vaping Use: Never Used Patient Interested in Nicotine Replacement: No Patient Given Instructions on How to Stop Smoking: No Second Hand Smoke Exposure: Yes Use of substances other than those prescribed or required for medical reasons: No Currently Displaying Signs/Symptoms of Drug Intoxication Withdrawal: No Have you been hit, kicked, punched, or otherwise hurt by someone within the past year? If so, by whom?: No Do you feel safe in your current relationship?: Yes Is there a partner from a previous relationship who is making you feel unsafe now?: No Are you made to feel afraid or neglected: No Advance Directives: No Advance Directives Information Provided: No Do you have a plan to hurt others: No Plan Recently lost weight without trying: No How much weight loss: Not applicable Eating poorly because of decreased appetite: No Nutrition screen score: 0 Nutrition Risks: No Nutritional Risk Patient : No : No Poor oral hygiene: No service: No Current occupational status: disabled Cognitive needs: No Hearing needs: No Vision needs: Yes (glasses) Physical Exam ED Vital Signs: Vital Signs - 24 hr 08/16/25 12:10 08/16/25 13:57 08/16/25 13:57 Temperature 97.5 F 98.0 F Pulse Rate 108 H 84 Respiratory Rate 18 14 Blood Pressure 119/63 99/54 L 83/54 L Pulse Oximetry 98 95 Oxygen Delivery Method Room Air Room Air 08/16/25 13:58 08/16/25 14:00 08/16/25 14:10 Temperature Pulse Rate Respiratory Rate Blood Pressure 84/56 L 105/64 119/74 Pulse Oximetry Oxygen Delivery Method 08/16/25 15:41 Temperature Pulse Rate 79 Respiratory Rate 16 Blood Pressure 110/60 Pulse Oximetry 96 Oxygen Delivery Method Room Air BMI result Body Mass Index 34.0 Patient is tachycardic General: Well appearing, in no acute distress. Skin: Warm, dry, intact. No rashes or lesions. Head: Normocephalic, atraumatic. EENT: Hearing is intact b/l. Conjunctiva clear. PERRLA. EOM intact. Moist mucous membranes.? Neck: Supple without LAD Cardiac: Chest wall symmetric. RRR Lungs: Normal respiratory effort without accessory muscle use. CTA bilaterally. No rales, rhonchi, or wheezes.? Abdomen: obese, soft, ND, ttp of entire lower abdomen without rebound/guarding, no palpable masses. active bs. no palpable inguinal LAD. Back: see photo of lumbar back below: there is a fistula noted to surgical site, draining foul smelling discharge, malodorous, ttp surrounding opening primarily at 12 oclock, no palpable fluctuance, mass Ext: Upper and lower extremities atraumatic, without tenderness, deformity, swelling or erythema. Full ROM throughout Neuro: AOx3. Normal speech. Strength 5/5 intact throughout. No saddle anesthesia. Sensation intact to light touch. NV intact distally. Ambulating with steady gait. Psych: Appropriate mood and affect. Responds appropriately to questions. Course Course Course Narrative: RME; 54 yold femal presents to the ED for RLq abdominal pain radiating to the back. patient wants imaging to imaging to reevaluate cysts. labs ordered Reevaluation(s) Reevaluation #1: 1800 -- CBC without leukocytosis or left shift. No anemia. H&H stable. Chemistry without acute electrolyte abnormality requiring intervention. Random glucose 118, no anion gap. Liver function around baseline. ESR elevated to 62. CRP elevated to 1.86, down trending from priors. Lactic WNL at 1. Urine appears to be contaminated - no urinary symptoms. Will await urine culture for treatment. > MRI lumbar spine showing interval progression of destructive changes related to osteomyelitis and discitis involving L1-L4 disc spaces. Overall increased extent of a moment within L1 and decreased changes in L3. There has been near resolution of the left psoas muscle abscess. There is also evidence of improving myositis involving the paraspinal musculature. There is interval decrease in postoperative fluid, likely seroma, in the subcutaneous soft tissues dorsally to L3/4. No epidural abscess. I reached out to neurosurgical GM rascon who has provided the following recommendation: Admission to medicine with ID and neurosurgery consulations. No surgical intervention warranted as the patient has no surgical hardware and underwent a simple lumbar decompression day procedure . He states they will be happy to see her and provide recommendations however strongly recommend primary ID involvement at this time. Will reach out to hospitalist regarding admission to medicine. She has received IV Zosyn and vanco. Her pain is well-controlled with IV Dilaudid. She is stable at this time. Medications Administered Generic Name Dose Route Start Last Admin Trade Name Freq PRN Reason Stop Dose Admin Hydromorphone HCl 0.5 mg 08/16/25 18:05 08/16/25 22:24 Hydromorphone Hcl 1 Mg/Ml Syringe IVPUSH 0.5 mg Q4H PRN Administration Pain, Severe (Pain Scale 7-10) Protocol Piperacillin Sod/Tazobactam 50 mls @ 100 mls/hr 08/16/25 21:00 08/17/25 03:38 Sod 3.375 gm/ Sodium Chloride IV Infused Q6H JAMES Infusion Vancomycin HCl 750 mg/ Sodium 265 mls @ 265 mls/hr 08/16/25 23:00 08/16/25 23:25 Chloride IV Infused Q12H JAMES Infusion Pt Own (Ergotamine- 1 tab 08/16/25 21:00 08/16/25 22:19 Caffeine 1-100 Mg PO 1 tab Tablet) Q30M PRN Administration migraine headache Sodium Chloride 3 ml 08/17/25 00:00 08/16/25 21:15 0.9 % Sodium Chloride Flush 3 Ml Syringe IVFLUSH 3 ml QSHIFT JAMES Administration Trazodone HCl 400 mg 08/16/25 21:00 08/16/25 23:04 Trazodone Hcl 100 Mg Tablet PO 400 mg BEDTIME JAMES Administration Discontinued Medications Generic Name Dose Route Start Last Admin Trade Name Mitch PRN Reason Stop Dose Admin Gadobutrol 10 ml 08/16/25 16:48 08/16/25 16:53 Gadobutrol 10 Ml Vial IVPUSH 08/16/25 16:49 9 ml ONCE ONE Administration Hydromorphone HCl 1 mg 08/16/25 13:48 08/16/25 14:22 Hydromorphone Hcl 1 Mg/Ml Syringe IVPUSH 08/16/25 13:49 1 mg ONCE ONE Administration Protocol Hydromorphone HCl 1 mg 08/16/25 17:21 08/16/25 17:30 Hydromorphone Hcl 1 Mg/Ml Syringe IVPUSH 08/16/25 17:22 1 mg ONCE ONE Administration Protocol Sodium Chloride 1,000 mls @ 999 mls/hr 08/16/25 14:00 08/16/25 15:40 Ns IV 08/16/25 15:00 Infused .Q1H1M JAMES Infusion Vancomycin HCl 2,000 mg in 500 mls @ 250 mls/hr 08/16/25 13:53 08/16/25 18:30 Vancomycin/Ns IV 08/16/25 15:52 Infused ONCE ONE Infusion Piperacillin Sod/Tazobactam 50 mls @ 100 mls/hr 08/16/25 13:53 08/16/25 15:00 Sod 3.375 gm/ Sodium Chloride IV 08/16/25 14:22 Infused ONCE ONE Infusion Influenza Virus Vaccine 0.5 ml 08/16/25 20:45 08/16/25 21:10 Flu Vacc [id number](6mo Up)/Pf 0.5 Ml Syringe IM 08/16/25 20:46 0.5 ml .ONCE ONE Administration Medical Decision Making Medical Decision Making MDM Narrative: 54 year old female with pmhx significant for HTN, HLD, T2DM, GERD, current tobacco smoker presents to the ED today with concerns of worsening spinal infection. Patient is tachycardic on arrival, afebrile. She is generally well- appearing, sitting comfortably on the exam bed. On exam, Differential diagnosis includes cellulitis, postop infection, fistula, diskitis, osteomyelitis, abscess Plan for labs, UA, imaging, pain control, IV abx and re-evaluation. Differential Diagnosis Differential Diagnoses: The differential diagnosis associated with the presentation includes as above. Admission/Observation Consideration of admission/observation: Escalation of care including admission/observation considered Patient admitted to medicine for management of progressing osteomyelitis Consult Healthcare Provider Management of the patient was discussed with: Hospitalist ([facility]) and Oil And Gas Specialist ([facility]surgery [facility]) Lab Data MDM Lab Attestation statement: I reviewed the patient's lab results. as above. 08/16/25 12:27 08/16/25 12:27 Labs: Lab Results 08/16/25 08/16/25 Range/Units 12: 14:23 WBC 8.2 (4.8-10.8) X10*3/uL RBC 4.54 (4.20-5.50) X10*6/uL Hgb 12.6 (12.0-16.0) g/dl Hct 39.8 (37.0-47.0) % MCV 87.7 (80.0-98.0) fL MCH 27.8 (27.0-33.0) pg MCHC 31.7 (31.0-35.0) g/dl RDW 16.6 H (11.0-16.0) % Plt Count 383 (160-400) X10*3/uL MPV 8.5 L (9.4-12.3) fL Immature Gran % (Auto) 0.4 (0.0-0.4) % Neut % (Auto) 66.0 (45-73) % Lymph % (Auto) 27.1 (20-40) % Quay % (Auto) 4.8 (2-11) % Eos % (Auto) 1.2 (0-4) % Baso % (Auto) 0.5 (0-2) % Lymph # (Auto) 2.2 (1.2-4.9) X10*3/uL [place]ay # (Auto) 0.4 (0.1-1.2) X10*3/uL Eos # (Auto) 0.1 (0.0-0.4) X10*3/uL Baso # (Auto) 0.0 (0.0-0.2) X10*3/uL Abs Immat Gran (auto) 0.03 (0.00-0.03) X10*3/uL Absolute Neuts (auto) 5.4 (2.0-8.3) x10*3/uL Absolute Nucleated RBC 0.000 (0.0-0.012) X10*3/uL Nucleated RBC % (auto) 0.0 (0.0-0.2) /100WBC ESR 62 H (0-20) MM/HR Sodium 138 (135-145) mmol/L Potassium 3.8 (3.3-5.1) mmol/L Chloride 102 (96-108) mmol/L Carbon Dioxide 25 (22-29) mmol/L Anion Gap 15 (12-20) BUN 16 (9-16) mg/dL Creatinine 1.01 (0.5-1.4) mg/dL Estim Creat Clear Calc 66.6 Estimated GFR 57 Random Glucose 118 H (60-115) mg/dL Lactic Acid 1.0 (0.5-2.0) mmol/L Calcium 10.8 H (8.4-10.2) mg/dL Total Bilirubin 0.3 (0.0-1.0) mg/dL AST 26 (5-31) U/L ALT 13 (0-31) U/L Alkaline Phosphatase 124 H (39-117) U/L C-Reactive Protein 1.86 H (< or = 0.50) mg/dL Total Protein 8.7 H (6.5-8.0) g/dL Albumin 4.5 (3.5-5.0) g/dL Beta HCG, Quant < 2 mIU/mL Urine Color Yellow Urine Appearance Clear Urine pH 5.5 (5.0-9.0) Ur Specific [place] 1.010 (1.005-1.025) Urine Protein Negative (Neg-Trace) mg/dL Urine Glucose (UA) Negative (Negative) mg/dL Urine Ketones Negative (Negative) mg/dL Urine Blood Negative (Negative) Urine Nitrite Negative (Negative) Ur Leukocyte Esterase Small (1+) H (Negative) Urine RBC 0-2 (0-2) /HPF Urine WBC 6-10 H (0-5) /HPF Ur Squamous Epith Cells >20 (0-2) /HPF Urine Bacteria None Seen (None Seen) Hyaline Casts 0-2 (0-2) /LPF Urine Test NEGATIVE (NEGATIVE) Independent Interpretation I performed an independent interpretation of an: MRI Radiology Impression Discussion of test interpretation with radiology: I have reviewed the radiologist's reading. Radiologist Impression: Procedure(s): MR lumbar spine wo/w con Accession Number(s): [id number] cc: Festus Lang PA-C; Carly Hunter Reason for Exam: r/o epidural abscess EXAM: MRI lumbar spine without and with IV contrast TECHNIQUE: Multiplanar multisequence imaging was performed through the lumbar spine without and with contrast. INDICATION: Recent epidural abscess, discitis, and iliopsoas abscess, follow-up CONTRAST: 9 mL Gadavist PRIOR: June 14, 2025 FINDINGS: 5 non-rib bearing lumbar segments are assumed for numbering purposes. There are no marrow replacing lesions. Left psoas muscle abscess has decreased in size since the prior examination. It measures 3.0 x 0.7 x 0.8 cm and previously measured 12 x 1.3 x 1.8 cm (CC by transverse by AP). Postoperative fluid collection in the subcutaneous soft tissues dorsal to L3-4 with thick rind of peripheral enhancement is again noted. It has concave margin and has decreased in size. Fluid collection measures 1.1 x 0.3 x 2.5 cm and previously measured 3.2 x 1.2 x 2.9 cm apparent cc by transverse by AP). The termination of conus medullaris is within normal limits at the level of upper L2. Again seen is replacement of marrow signal in L1, sparing the superior endplate, throughout L2, and L3, sparing the inferior endplate. T1 signal is isodense slightly hyperintense to skeletal muscle. Fluid sensitive sequence, there is heterogeneous hyper intensity. In the posterior L2 vertebral body, there is an area that demonstrates low signal on T1 imaging and high signal on fluid sensitive sequences measuring 1.9 x 1.0 x 0.6 cm (CC by AP by transverse) with concordant enhancement. Signal changes and enhancement have increased in L1 and decreased and L3. There is fluid signal in the L1-L2 interbody space. There is obliteration of the L2-3 space and a fluid collection in the left interbody space with serpentine margins without a peripheral rind of hyperenhancement. L3-4 disc demonstrates mild increased signal fluid sensitive sequences and mild hyperenhancement. There is mild loss of height of inferior L1, severe loss of height of L2, and moderate loss of height at L3, increased since the prior. There is persistent moderate spinal stenosis at L1-2, severe spinal stenosis at L2-3, L3-4, and moderate spinal stenosis at L4-5. Hyperenhancement of paraspinal musculature has overall decreased compared to the prior. There is persistent hyperenhancement most pronounced in the dorsal lumbar musculature in the region of L4-S2. MR/MR lumbar spine wo/w con IMPRESSION: Interval progression of destructive changes related to osteomyelitis and discitis involving L1-L3 4 disc space. There is overall increased extent of involvement within L1 and decreased changes in L3. There has been near resolution of the left psoas muscle abscess. . Also, there is evidence of improving myositis involving the paraspinal musculature. There is interval decrease in postoperative fluid, likely seroma, in the subcutaneous soft tissues dorsal to L3-4. No epidural abscess is demonstrated. Stable multifocal spinal stenosis. Electronically signed by: Chava Rosario MD 08/16/2025 05:30 PM [facility] Independent Historian Clinical information obtained from an independent historian. History obtained from or confirmed by: Spouse () External Record Review External record reviewed: Inpatient record, Office record, Outpatient record, Prior outpatient labs, Prior outpatient radiology, Primary care record and Outside ED record Prescription Management I considered prescription management with: Pain Medication and Antibiotic Chronic Conditions Patient?s care impacted by: Diabetes Social Determinants Patient?s care significantly limited by Social Determinants of Health including: Other Social Determinant of Health Critical Care Time Critical Care Time Critical Care Time: Yes Total Critical Care Time: 55 Attestation: Critical care time in the amount of 55 minutes has been provided to the patient in terms of direct patient care, frequent reevaluation, consultation with hospitalist and neurosurgery, review and interpretation of medical data and results, and management of potentially life-threatening conditions. This is all outside of any medical procedures. Discharge Plan Discharge Clinical Impression: Osteomyelitis of lumbar spine, Discitis of lumbar region Patient Disposition: Admitted As Inpatient Interventions: Admission Worksheet (ED) Last Done: 08/16/25 19:50 Discharge Date/Time: 08/16/25 20:38
[2025-08-16 12:35] LABS: MANUAL DIFF FLAG NO
[2025-08-16 12:39] LABS: Appearance Urine Clear; Glucose Urine UA Negative (Negative); PH 5.5 (5.0-9.0); Specific Gravity - Urine 1.010 (1.005-1.025); UMIC TRIGGER UACC YES
[2025-08-16 12:41] LABS: UACC Culture Trigger YES
[2025-08-16 12:44] LABS: UPreg QC Valid YES
[2025-08-16 12:46] LABS: Hematocrit 39.8 % (37.0-47.0); Hemoglobin 12.6 g/dl (12.0-16.0); Imm Gran Abs Auto 0.03 X10*3/uL (0.00-0.03); Imm Gran Pct Auto 0.4 % (0.0-0.4); Lymphocytes Absolute Auto 2.2 X10*3/uL (1.2-4.9); Mean Corpuscular HGB Conc 31.7 g/dl (31.0-35.0); Mean Corpuscular Hemoglobin 27.8 pg (27.0-33.0); Mean Corpuscular Volume 87.7 fL (80.0-98.0); NRBC Abs Auto 0.000 X10*3/uL (0.0-0.012); NRBC Pct Auto 0.0 /100WBC (0.0-0.2); Platelet Count 383 X10*3/uL (160-400); Red Blood Count 4.54 X10*6/uL (4.20-5.50); White Blood Count 8.2 X10*3/uL (4.8-10.8)
[2025-08-16 13:03] LABS: Alanine Aminotransferase 13 U/L (0-31); Albumin Level 4.5 g/dL (3.5-5.0); Alkaline Phosphatase 124 U/L (39-117); Anion Gap 15 (12-20); Aspartate Amino Transferase 26 U/L (5-31); Blood Urea Nitrogen 16 mg/dL (9-16); Calcium 10.8 mg/dL (8.4-10.2); Carbon Dioxide 25 mmol/L (22-29); Chloride 102 mmol/L (96-108); Creatinine Clr Calc Pharmacy 66.6; Estimated Glomerular Filt Rate 57; Potassium 3.8 mmol/L (3.3-5.1); Sodium 138 mmol/L (135-145); Total Protein 8.7 g/dL (6.5-8.0)
[2025-08-16] MEDS: vancomycin/NS 2,000 MG/500 ML PLAST..BAG 250 MG IV (15:15)
--- NOTE | 2025-08-16 15:40 | PC.NURSE ---
Abx infusion paused for MRI, pt transported via wheelchair to MRI.
--- NOTE | 2025-08-16 19:45 | PHA.MEDREC ---
Addendum entered by Valentin Daley, PharmNaon 08/16/25 20:53: MED REC CHECKED BY [facility] Original Note: Pharmacy Consult ? Medication Reconciliation Pharmacy has completed the medication reconciliation. Patient had a list of medications with her. Patient is no longer taking Nicotine patches, Oxycodone 10 mg and Sulfamethoxazole 800 mg Trimethoprim 160 mg. Patient states she has Ergotamine 1 mg -Caffeine 100 mg with her. Patient had all her morning medications today.
--- NOTE | 2025-08-16 19:57 | HO.NURTONUR ---
Addendum entered by Elsie Gabriel RN 08/16/25 19:58: Pt arrived to ED c/o worsening lower back pain and spinal infection. After laminectomy in 03/2025, pt has had multiple complications including post-surgical MRSA, and previous admissions w/PICC placement and iv abx @ home. She then developed an abscess to the left iliopsoas muscle as a complication. She had PICC line placed for the second time and completed a second course of antibiotics. During followup appointment approx 2 days ago, ID recommended pt be seen in ED for MRI and IV abx again. Admitted for pain control and IV abx. Pt aaox4, ambulatory/independent. Original Note: Pt arrived to ED c/o worsening lower back pain and spinal infection. After laminectomy in 03/2025, (pt had post-surgical MRSA previous admissions a/PICC placement and iv abx @ home). She then developed an abscess to the left iliopsoas muscle as a complication. She had PICC line placed for the second time and completed a second course of antibiotics. During followup appointment approx 2 days ago, ID recommended pt be seen in ED for MRI and IV abx again. Admitted for pain control and IV abx. Pt aaox4, ambulatory/independent.
--- NOTE | 2025-08-16 20:39 | PM.IMHP ---
History of Present Illness Date of Service: 08/16/25 Attending physician on admission: Rober Martinez Chief Complaint: back pain Patient is a 54-year-old female with a past medical history significant for history of MRSA, HTN, HLD, T2 DM, GERD, smoker and recent osteomyelitis/diskitis s/p laminectomy. The patient has had a difficult course since her laminectomy with 2 failed courses of IV antibiotics via PICC line for osteomyelitis and diskitis as well as left psoas muscle abscess and myositis of the paraspinal musculature. She reported to the ED per recommendation from Infectious Disease due to continued infection. She has had purulent discharge from the surgical site and continued right-sided abdominal pain and midback pain. She reports her pain is a 9/10 at this time. When she had diskitis previously her symptoms with the same. She denies any fever, chills, nausea, vomiting, urinary symptoms. MRI today shows interval progression of destructive changes related to osteomyelitis and diskitis involving L1-L3-4 disc space. There is overall increased extent of involvement with an L1 and decreased changes in L3. Near resolution of the left psoas muscle abscess. Evidence of improving myositis involving the paraspinal musculature. Interval decreased of postoperative fluid likely seroma in the subcutaneous soft tissues dorsal to L3-4. No epidural abscess. Neurosurgery was consulted who suggested no surgical intervention warranted as the patient has had no surgical hardware and underwent as simple lumbar decompression D procedure. 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 Review of Systems Constitutional: Constitutional: Denies body ache(s), Denies chills, Denies fatigue, Denies fever(s) and Denies headache(s) Eyes: Eyes: Denies change in vision ENT: Denies headache(s), Denies nasal congestion and Denies sore throat Cardiovascular: Cardiovascular: Denies chest pain, Denies rapid heart rate, Denies leg edema, Denies lightheadedness and Denies dyspnea Respiratory: Respiratory: Denies chest congestion, Denies cough, Denies dyspnea and Denies wheezing Gastrointestinal: Gastrointestinal: Reports abdominal pain, Denies nausea and Denies vomiting Genitourinary: Genitourinary: Denies dysuria and Denies urinary urgency Musculoskeletal: Musculoskeletal: Reports as per HPI Integumentary/Breasts: Skin/Breast: Denies rash Neurologic: Denies confusion and Denies headache(s) Psychiatric: Psychiatric: Denies confusion Endocrine: Endocrine: Denies fatigue Hematologic/Lymphatic: Hematologic/Lymphatic: Denies easy bleeding Allergic/Immunologic: Allergic/Immunologic: Denies wheezing [facility] Medical History MRSA (methicillin resistant Staphylococcus aureus) infection Anemia Anxiety MDD (major depressive disorder) Gout GERD (gastroesophageal reflux disease) Ambulates with cane Smoker Hyperuricemia Asthma Obese Osteoarthritis Trigger finger Carpal tunnel syndrome Hyperlipidemia LDL goal <100 Essential hypertension Hyperlipidemia Cellulitis, umbilical Family History Father Diabetes Hypertension Stroke Heart attack, Onset Age: 50 Mother Multiple sclerosis Brother In good health Son In good health Son In good health Other Patient denies medical problems Surgical History History of esophagogastroduodenoscopy (EGD) Hx of colonoscopy History of laparoscopic appendectomy History of foot surgery History of carpal tunnel release H/O: hysterectomy Social History Household Members: Family Housing: Apartment Are you a primary long term care social worker to a significant other at home: No Do you presently have visiting nurse or other home services: Yes ([facility] 2x week) Alcohol intake: current Alcohol intake frequency: holidays/special occasions only Alcohol type: beer Patient Tobacco Use Status: Current everyday Tobacco user Tobacco use type: Cigarette Cigarette Packs Per Day: 0.5 Cigarettes Per Day: 7 Years Smoked: 46 Smoked in Last 30 Days: Yes e-Cigarette/Vaping Use: Never Used Patient Interested in Nicotine Replacement: No Patient Given Instructions on How to Stop Smoking: No Second Hand Smoke Exposure: Yes Use of substances other than those prescribed or required for medical reasons: No Have you been hit, kicked, punched, or otherwise hurt by someone within the past year? If so, by whom?: No Do you feel safe in your current relationship?: Yes Is there a partner from a previous relationship who is making you feel unsafe now?: No Are you made to feel afraid or neglected: No Advance Directives: No Advance Directives Information Provided: No Do you have a plan to hurt others: No Plan Recently lost weight without trying: No How much weight loss: Not applicable Eating poorly because of decreased appetite: No Nutrition screen score: 0 Nutrition Risks: No Nutritional Risk Patient : No : No Poor oral hygiene: No service: No Current occupational status: disabled Cognitive needs: No Hearing needs: No Vision needs: Yes (glasses) Narrative: smoker, no etoh or drug use Meds Allergies Allergy/AdvReac Type Severity Reaction Status Date / Time gabapentin Allergy Intermediate Nausea and Verified 08/16/25 12:13 Vomiting morphine (Morphine) Allergy Intermediate VOMITING Verified 08/16/25 12:13 oxycodone (Percocet) Allergy Intermediate Vomiting Verified 08/16/25 12:13 methocarbamol AdvReac Intermediate GI upset Verified 08/16/25 12:13 Active Medications: Current Medications Acetaminophen (Acetaminophen 325 Mg Tablet) 650 mg PO Q6H PRN PRN Reason: Pain, Mild 1-3,fever,headache Albuterol Sulfate (Albuterol Sulfate 90 Mcg 8 Gm Inhaler) 1 puff INHALE QID PRN PRN Reason: Shortness Of Breath Or Wheezing Allopurinol (Allopurinol 100 Mg Tablet) 100 mg PO DAILY JAMES Atorvastatin Calcium (Atorvastatin Calcium 40 Mg Tablet) 40 mg PO DAILY JAMES Baclofen (Baclofen 10 Mg Tablet) 10 mg PO BID PRN PRN Reason: Muscle Spasm Calcium Carbonate (Calcium Carbonate 750 Mg Tab.Chew) 750 mg PO Q4H PRN PRN Reason: Heartburn Cyanocobalamin (Cyanocobalamin (Vitamin B-12) 1,000 Mcg Tablet) 1,000 mcg PO DAILY JAMES Enoxaparin Sodium (Enoxaparin Sodium 40 Mg/0.4 Ml Syringe) 40 mg SUBCUT Q24H JAMES Hydromorphone HCl (Hydromorphone Hcl 1 Mg/Ml Syringe) 0.5 mg IVPUSH Q4H PRN; Protocol PRN Reason: Pain, Severe (Pain Scale 7-10) Piperacillin Sod/Tazobactam (Sod 3.375 gm/ Sodium Chloride) 50 mls @ 100 mls/hr IV Q6H JAMES Magnesium Hydroxide (Milk Of Magnesia 30 Ml Oral.Susp) 30 ml PO DAILY PRN PRN Reason: Constipation Melatonin (Melatonin 3 Mg Tablet) 6 mg PO BEDTIME PRN PRN Reason: Insomnia Montelukast Sodium (Montelukast Sodium 10 Mg Tablet) 10 mg PO DAILY [facility] Multivitamins/Vitamin C (Multivitamin Tablet) 1 tab PO DAILY JAMES Non-Formulary Medication (Pantoprazole) 40 mg PO DAILY@06 [facility] Non-Formulary Medication (Magnesium Oxide) 250 mg PO DAILY [facility] Ondansetron HCl (Ondansetron Hcl 4 Mg/2 Ml Vial) 4 mg IVPUSH Q8H PRN PRN Reason: Nausea and Vomiting Pharmacy Consult (Consult Rx Vancomycin Dosing) 1 each MISCELLANE DAILY PRN PRN Reason: Consult order Polyethylene Glycol (Polyethylene Glycol 3350 17 Gm Powd.Pack) 17 gm PO DAILY PRN PRN Reason: Constipation Sodium Chloride (0.9 % Sodium Chloride Flush 3 Ml Syringe) 3 ml IVFLUSH QSHIFT JAMES Tizanidine HCl (Tizanidine Hcl 4 Mg Tablet) 2 mg PO Q8H JAMES Trazodone HCl (Trazodone Hcl 100 Mg Tablet) 400 mg PO BEDTIME [facility] Home Medications ?Medication ?Instructions ?Recorded ?Confirmed ?Last Taken ?Type multivitamin 1 tab PO DAILY 07/31/22 08/16/25 08/16/25 History omega-3 fatty acids 500 mg capsule 500 mg PO DAILY 03/01/25 08/16/25 08/16/25 History baclofen 10 mg tablet 10 mg PO BID PRN Muscle Spasm 04/08/25 08/16/25 06/14/25 History albuterol sulfate 90 mcg/actuation 1 puff inhalation QID PRN 06/14/25 08/16/25 Unknown History aerosol inhaler Shortness Of Breath Or Wheezing lidocaine 4 % topical patch 1 patch transdermal DAILY PRN Pain 08/16/25 08/16/25 Unknown History (Lidocaine Pain Relief) pantoprazole 40 mg tablet,delayed 40 mg PO DAILY@0630 08/16/25 08/16/25 08/16/25 History release Physical Exam Vital Signs and Narrative: Vital Signs: Last Vital Signs Temp 98.0 F 08/16/25 13:57 Pulse 72 08/16/25 18:20 Resp 16 08/16/25 18:20 BP 98/54 L 08/16/25 18:20 Pulse Ox 96 08/16/25 15:41 O2 Del Method Room Air 08/16/25 18:20 BMI result Body Mass Index 34.0 General: AOx3, no acute distress Resp: CTA bilaterally CVS: S1, S2, RRR GI: +BS, NT, no distention Skin: Warm, dry. open wound lumbar spine, surrounding erythema, no active drainage currently Neuro: Cranial nerves II-XII grossly intact bilaterally. Motor grossly intact bilaterally Extremities: No edema Psych: Appropriate affect Const: General: No confusion Orientation/consciousness: No confusion Neuro: General: No confusion Results Labs 08/16/25 12:27 08/16/25 12:27 Labs: Laboratory Results - last 24 hr 08/16/25 08/16/25 12: 14:23 MCV 87.7 MCH 27.8 MCHC 31.7 RDW 16.6 H Plt Count 383 MPV 8.5 L Immature Gran % (Auto) 0.4 Neut % (Auto) 66.0 Lymph % (Auto) 27.1 [place] % (Auto) 4.8 Eos % (Auto) 1.2 Baso % (Auto) 0.5 Lymph # (Auto) 2.2 [place] # (Auto) 0.4 Eos # (Auto) 0.1 Baso # (Auto) 0.0 Abs Immat Gran (auto) 0.03 Absolute Neuts (auto) 5.4 Absolute Nucleated RBC 0.000 Nucleated RBC % (auto) 0.0 ESR 62 H Anion Gap 15 Estim Creat Clear Calc 66.6 Estimated GFR 57 Random Glucose 118 H Lactic Acid 1.0 Calcium 10.8 H Total Bilirubin 0.3 AST 26 ALT 13 Alkaline Phosphatase 124 H C-Reactive Protein 1.86 H Total Protein 8.7 H Albumin 4.5 Beta HCG, Quant < 2 Urine Color Yellow Urine Appearance Clear Urine pH 5.5 Ur Specific [place] 1.010 Urine Protein Negative Urine Glucose (UA) Negative Urine Ketones Negative Urine Blood Negative Urine Nitrite Negative Ur Leukocyte Esterase Small (1+) H Urine RBC 0-2 Urine WBC 6-10 H Ur Squamous Epith Cells >20 Urine Bacteria None Seen Hyaline Casts 0-2 Urine Test NEGATIVE Imaging Radiologist's Impressions: Impressions Lumbar Spine MRI 08/16/25 16:00 IMPRESSION: Interval progression of destructive changes related to osteomyelitis and discitis involving L1-L3 4 disc space. There is overall increased extent of involvement within L1 and decreased changes in L3. There has been near resolution of the left psoas muscle abscess. . Also, there is evidence of improving myositis involving the paraspinal musculature. There is interval decrease in postoperative fluid, likely seroma, in the subcutaneous soft tissues dorsal to L3-4. No epidural abscess is demonstrated. Stable multifocal spinal stenosis. Electronically signed by: Chava Rosario MD 08/16/2025 05:30 PM EST Assessment and Plan (1) Discitis of lumbar region: Status: Acute (2) Osteomyelitis of lumbar spine: Status: Acute (3) Wound infection after surgery: Status: Acute (4) Tobacco dependence: Status: Acute (5) Class 1 obesity: Status: Acute Plan Patient is a 54-year-old female with a past medical history significant for history of MRSA, HTN, HLD, T2 DM, GERD, smoker and recent osteomyelitis/diskitis s/p laminectomy. Reported to the ED with recurrent back pain and right sided abdominal pain, consistent with unresolved diskitis and osteomyelitis with wound infection. Diskitis/osteomyelitis lumbar region - vancomycin and Zosyn - ID consult - neurosurgery consult - monitor CBC and BMP Wound infection - ID consult and wound care - antibiotics as above HTN - hold home meds, BP soft HLD - statin Type 2 diabetes, resolved per pt, no home meds - pt refusing POCs, discussed concern with pt that elevated blood sugars can affect wound healing and infection can also elevated blood sugars - check A1C GERD - PPI Tobacco use disorder - smoking cessation encouraged Class 1 obesity - BMI 33.6, weight loss encouraged Full code VTE prophylaxis: Lovenox Patient with continued diskitis and osteomyelitis with failed outpatient treatment, requiring admission for at least 2 midnight stay for IV antibiotics and specialist consultations. Quality Stroke Does the patient have a stroke diagnosis?: No VTE Prior VTE?: No VTE Risk Level:: Medical - moderate - high VTE Device Contraindication: N/A - Device Ordered VTE Drug Contraindication: N/A - Med Ordered
[2025-08-16] MEDS: Flu Vacc TS2025-26(6mo up)/PF 0.5 ML SYRINGE IM (21:10)
[2025-08-16] MEDS: 0.9 % Sodium Chloride Flush 3 ML SYRINGE IVFLUSH (21:15)
--- NOTE | 2025-08-16 21:17 | PHA.PROG ---
Admission Date/Time: August 16, 2025 18:05 Indication: BONE Weight in k kg Serum Creatinine - Last 168 Hours 08/16/25 12:27 Creatinine 1.01 Estimated CrCl and GFR - Last 168 Hours 08/16/25 12:27 Estim Creat Clear Calc 66.6 Estimated GFR 57 Vancomycin Loading Dose: 2000 Current Vancomycin Dosing Regimen: 750 Q 12H Vancomycin Monitoring using AUC goal of 400 - 600 range with trough as surrogate marker: 434 Date and Time for next Vancomycin Level to be drawn: 08/17 @ 2100 Pharmacist Comments on Vancomycin Plan: Vancomycin dosing will take advantage of [employer] as a clinical decision support tool that uses Bayesian modeling to calculate individual patient's pharmacokinetic parameters and forecast the patient's drug concentration time course with the target goal AUC 24 range of 400 - 600 mg/L/hr.
[2025-08-17 04:00] VITALS: BP 116/52; PULSE 73; RESP 17; TEMP 36.4; O2SAT 92
[2025-08-17 06:10] LABS: Creatinine Clr Calc Pharmacy 76.8; Estimated Glomerular Filt Rate > 60
[2025-08-17 07:31] VITALS: BP 114/58; PULSE 77; RESP 16; TEMP 36; O2SAT 94
[2025-08-17] MEDS: 0.9 % Sodium Chloride Flush 3 ML SYRINGE IVFLUSH ×3 (08:17→22:29)
--- NOTE | 2025-08-17 09:26 | P.PNIM_ITS ---
Subjective Subjective Date of Service: 08/17/25 Interval History: f/u Diskitis/osteomyelitis lumbar no fever, no neuro changes. Physical Exam 2 Vital Signs: Vital Signs: Last Vital Signs Temp 96.8 F 08/17/25 07:31 Pulse 77 08/17/25 07:31 Resp 16 08/17/25 07:31 BP 114/58 L 08/17/25 07:31 Pulse Ox 94 08/17/25 07:31 O2 Del Method Room Air 08/17/25 07:31 BMI result Body Mass Index 33.6 Const: Other: Gen: in no acute distress HEENT: sclera anicteric, moist mucus membranes Neck: supple Lungs: clear to auscultation bilaterally Heart: regular rate and rhythm, no murmurs Abd: soft, non-tender, non-distended Ext: no edema, no L knee swelling Skin: warm/well-perfused, lumbar wound with no drainage Neuro: alert and oriented x3, no focal findings Psych: appropriate affect Objective Data Active Medications Acetaminophen (Acetaminophen 325 Mg Tablet) 650 mg PO Q6H PRN PRN Reason: Pain, Mild 1-3,fever,headache Last Admin: 08/17/25 08:22 Dose: 650 mg Documented By: SEBASTIEN Albuterol Sulfate (Albuterol Sulfate 90 Mcg 8 Gm Inhaler) 1 puff INHALE QID PRN PRN Reason: Shortness Of Breath Or Wheezing Allopurinol (Allopurinol 100 Mg Tablet) 100 mg PO DAILY [facility] Last Admin: 08/17/25 08:15 Dose: 100 mg Documented By: SEBASTIEN Atorvastatin Calcium (Atorvastatin Calcium 40 Mg Tablet) 40 mg PO DAILY [facility] Last Admin: 08/17/25 08:14 Dose: 40 mg Documented By: SEBASTIEN Baclofen (Baclofen 10 Mg Tablet) 10 mg PO BID PRN PRN Reason: Muscle Spasm Calcium Carbonate (Calcium Carbonate 750 Mg Tab.Chew) 750 mg PO Q4H PRN PRN Reason: Heartburn Cyanocobalamin (Cyanocobalamin (Vitamin B-12) 1,000 Mcg Tablet) 1,000 mcg PO DAILY [facility] Last Admin: 08/17/25 08:15 Dose: 1,000 mcg Documented By: SEBASTIEN Enoxaparin Sodium (Enoxaparin Sodium 40 Mg/0.4 Ml Syringe) 40 mg SUBCUT Q24H [facility] Last Admin: 08/17/25 08:19 Dose: 40 mg Documented By: SEBASTIEN Hydromorphone HCl (Hydromorphone Hcl 1 Mg/Ml Syringe) 0.5 mg IVPUSH Q4H PRN; Protocol PRN Reason: Pain, Severe (Pain Scale 7-10) Last Admin: 08/17/25 05:45 Dose: 0.5 mg Documented By: PRITESH Piperacillin Sod/Tazobactam (Sod 3.375 gm/ Sodium Chloride) 50 mls @ 100 mls/hr IV Q6H [facility] Last Infusion: 08/17/25 08:53 Dose: Infused Documented By: SEBASTIEN Vancomycin HCl 750 mg/ Sodium (Chloride) 265 mls @ 265 mls/hr IV Q12H [facility] Last Infusion: 08/16/25 23:25 Dose: Infused Documented By: PRITESH Magnesium Hydroxide (Milk Of Magnesia 30 Ml Oral.Susp) 30 ml PO DAILY PRN PRN Reason: Constipation Magnesium Oxide (Magnesium Oxide 400 Mg Tablet) 200 mg PO DAILY [facility] Last Admin: 08/17/25 08:15 Dose: 200 mg Documented By: SEBASTIEN Melatonin (Melatonin 3 Mg Tablet) 6 mg PO BEDTIME PRN PRN Reason: Insomnia Montelukast Sodium (Montelukast Sodium 10 Mg Tablet) 10 mg PO DAILY [facility] Last Admin: 08/17/25 08:15 Dose: 10 mg Documented By: SEBASTIEN Multivitamins/Vitamin C (Multivitamin Tablet) 1 tab PO DAILY [facility] Last Admin: 08/17/25 08:15 Dose: 1 tab Documented By: SEBASTIEN Pt Own (Ergotamine- Caffeine 1-100 Mg Tablet) 1 tab PO Q30M PRN PRN Reason: migraine headache Last Admin: 08/16/25 22:19 Dose: 1 tab Documented By: PRITESH Ondansetron HCl (Ondansetron Hcl 4 Mg/2 Ml Vial) 4 mg IVPUSH Q8H PRN PRN Reason: Nausea and Vomiting Pantoprazole Sodium (Pantoprazole Sodium 20 Mg Tablet.) 40 mg PO DAILY@0630 [facility] Last Admin: 08/17/25 05:41 Dose: 40 mg Documented By: PRITESH Pharmacy Consult (Consult Rx Vancomycin Dosing) 1 each MISCELLANE DAILY PRN PRN Reason: Consult order Polyethylene Glycol (Polyethylene Glycol 3350 17 Gm Powd.Pack) 17 gm PO DAILY PRN PRN Reason: Constipation Sodium Chloride (0.9 % Sodium Chloride Flush 3 Ml Syringe) 3 ml IVFLUSH QSHIFT [facility] Last Admin: 08/17/25 08:17 Dose: 3 ml Documented By: SEBASTIEN Tizanidine HCl (Tizanidine Hcl 4 Mg Tablet) 2 mg PO Q8H JAMES On Hold: 08/16/25 20:45 Trazodone HCl (Trazodone Hcl 100 Mg Tablet) 400 mg PO BEDTIME JAMES Last Admin: 08/16/25 23:04 Dose: 400 mg Documented By: GENEVAQC Labs 08/16/25 12:27 08/18/25 05:05 Labs: Laboratory Results - last 24 hr 08/16/25 08/16/25 08/17/25 12:27 14:23 05:23 MCV 87.7 MCH 27.8 MCHC 31.7 RDW 16.6 H Plt Count 383 MPV 8.5 L Immature Gran % (Auto) 0.4 Neut % (Auto) 66.0 Lymph % (Auto) 27.1 [place] % (Auto) 4.8 Eos % (Auto) 1.2 Baso % (Auto) 0.5 Lymph # (Auto) 2.2 [place] # (Auto) 0.4 Eos # (Auto) 0.1 Baso # (Auto) 0.0 Abs Immat Gran (auto) 0.03 Absolute Neuts (auto) 5.4 Absolute Nucleated RBC 0.000 Nucleated RBC % (auto) 0.0 ESR 62 H Hold Purple Top SEE NOTE Anion Gap 15 Estim Creat Clear Calc 66.6 76.8 Estimated GFR 57 > 60 Random Glucose 118 H Estimat Average Glucose 111 Hemoglobin A1c % 5.5 Lactic Acid 1.0 Calcium 10.8 H Total Bilirubin 0.3 AST 26 ALT 13 Alkaline Phosphatase 124 H C-Reactive Protein 1.86 H Total Protein 8.7 H Albumin 4.5 Beta HCG, Quant < 2 Urine Color Yellow Urine Appearance Clear Urine pH 5.5 Ur Specific [place] 1.010 Urine Protein Negative Urine Glucose (UA) Negative Urine Ketones Negative Urine Blood Negative Urine Nitrite Negative Ur Leukocyte Esterase Small (1+) H Urine RBC 0-2 Urine WBC 6-10 H Ur Squamous Epith Cells >20 Urine Bacteria None Seen Hyaline Casts 0-2 Urine Test NEGATIVE Assessment and Plan (1) Diskitis: Status: Acute (2) Osteomyelitis: Status: Acute Plan 54yo F with L3-4, L4-5 spinal stenosis/lateral recess stenosis/neural foraminal stenosis, s/p right L3-4, L4-5 Laminotomy, Partial facetectomy and L5 foraminotomy 03/14/25 complicated by sepsis due to MRSA bacteremia due to diskitis/osteomyelitis L1-L4, seroma vs abscess, iliopsoas abscess completed Vanco and Zosyn in June and now with RL abd pain and found to have worsening Diskitis/osteomyelitis lumbar region Diskitis/osteomyelitis lumbar region vancomycin and Zosyn started 08/16/25 ID consult neurosurgery consult monitor CBC and BMP Follow blood cultures Wound infection ID consult and wound care antibiotics as above HTN hold med d/t low BP--not related to sepsis HLD statin Type 2 diabetes, resolved per pt, no home meds, A1C 5.5, check sugars as needed, and she doesn't want them checked GERD - PPI Tobacco use disorder - smoking cessation encouraged Class 1 obesity - BMI 33.6, weight loss encouraged Full code VTE prophylaxis: Lovenox Patient with continued diskitis and osteomyelitis with failed outpatient treatment, requiring admission for at least 2 midnight stay for IV antibiotics and specialist consultations. Quality Stroke Does the patient have a stroke diagnosis?: No VTE Prior VTE?: No VTE Risk Level:: Medical - moderate - high VTE Device Contraindication: N/A - Device Ordered VTE Drug Contraindication: N/A - Med Ordered
--- NOTE | 2025-08-17 09:47 | HO.NEURO.PN ---
Neurosurgery Operative Note Date of Service: 08/17/25 Narrative: HPI: Vickie is a 54-year-old female known to [facility] neurosurgery from L3-4, L4-[address] Bull on 03/14/25. She had a postoperative infection about a month out from surgery which seems to have persisted for the past 5 months or so despite multiple therapeutic interventions attempted by our colleagues in infectious disease. She has attempted 2 courses of PICC line placement with 6 weeks IV antitbiotics and subsequent PO antibiotic prescriptions thereafter. Unfortunately her infection seems to have persisted despite attempts to treat this by our colleagues in infectious disease. She most recently was discharged from her acute rehab facility, which she transferred to after her last ED evaluation on 06/14/25. A few weeks after discharge from rehab she was seen in our clinic on 08/09/25 for evaluation of worsening back pain and pain in abdomen. She raised concerns regarding recurrence of severe pain after transitioning off IV antibiotics. We communicated her symptoms and concerns to ID, who saw her in clinic thereafter on 08/14/25. They recommended ED evaluation for worsening signs of infection. Vickie was subsequently re-admitted to [facility] yesterday 08/16/25 after she presented to the ED for evaluation of worsening pain. They obtained repeat MRI, urine culture, and blood work / blood cultures. I saw her lying in bed this morning on 3-S room 353. She was accompanied by her . She reports that her right lower quadrant abdominal pain is severe. When lying and resting in bed she reports no low back pain. Her back pain primarily flares up with weight bearing / ambulation. When questioned further regarding this, she states that her right lower quadrant abdominal pain is ?by far worse than her low back pain. She reports that she has a cyst in her right lower quadrant at baseline, and expressed concerns that this cyst is infected and may be protracting her infection in the low back. She extensively expressed her frustrations with her prolonged infection/pain. We discussed this at length. I informed her that Dr. Bull and Dr. Ansari have been communicating regarding her care. Imaging: Repeat lumbar MRI which shows near resolution of the fluid collection near left iliopsoas which was reported as an abscess by radiology. Unfortunately her osteomyelitis and discitis related L1-4 seems to have progressed. Her MRI was reviewed by my attending neurosurgeon Dr. Bull. Labs: Lab work from yesterday 08/16/25 appears largely unchanged from labs taken on 08/10/25. White count is slighlty increased to 8.2 from 8.0. CRP slightly increased from 61 to 62. Urine and blood cultures still pending. Vitals: Patient was initially hypotensive with one episode of tachycardia when she presented to ED yesterday. This has since resolved. She has remained afebrile. Exam: On examination the patient is in obvious discomfort/pain. She has about 4/5 strength with right-sided iliopsoas testing/knee flexion. She reports that this is pain limiting, and reports severe pain of right lower quadrant abdomen when testing strength of right lower extremity. She does not report any low back pain during strength testing of lower extremities. She reports full sensation to light touch of bilateral lower extremities. Her posterior incision site remains opened to about the size of a dime, and has no notable drainage or deep tissue involvement. No surrounding erythema or edema. No palpable fluctuance. Plan: Pleasant 54-year-old female who underwent L4-[address] Bull on 03/14/25. She has had a complicated postoperative course and protracted infection despite multiple attempts at treatment. Dr. Bull reviewed her MRI imaging from yesterday and does not believe the patient needs any surgical intervention to help treat her continued infection. She has no hardware in place and underwent a two level nerve decompression outpatient surgery, where Dr. Bull removed a small amount of bone / tissue to decompress the L3-4 and L4-5 level. Today, her main focus appears to be her right lower quadrant abdominal pain. We will place a general surgery consult to evaluate her right lower abdominal pain, and will appreciate recommendations from infectious disease regarding further continued treatment of her infection. No neurosurgical intervention warranted at this time. This was discussed with the attending neurosurgeon Dr. Bull. Sumeet Bull MD,PhD [facility]
--- NOTE | 2025-08-17 12:10 | PM.CNGS ---
History of Present Illness Consult details Consult date: 08/17/25 Narrative: 54 year old female referred for right sided abdominal pain She had undergone lumbar decompression in March, and her postop course was complicated by diskitis and osteomyelitis. She has had multiple admissions to the hospital because of this and she had required IV antibiotics . She also had a so was abscess before. She has a this chronic pain and an open wound on the back since then. She was readmitted yesterday because of the same problems. I was asked to consult because she had mentioned having right lower quadrant pain this morning She is tolerating regular diet. She has a good BMs. She denies any nausea or vomiting. She denies any fever or chills She says she had an appendectomy and a removal of worried cyst about 20 years ago. Review of Systems Constitutional: Constitutional: Denies chills and Denies fever(s) Cardiovascular: Cardiovascular: Denies chest pain, Denies dyspnea and Denies dyspnea on exertion Respiratory: Respiratory: Denies cough, Denies dyspnea and Denies dyspnea on exertion Gastrointestinal: Gastrointestinal: Denies hematochezia and Denies change in bowel habits Genitourinary: Genitourinary: Denies hematuria Musculoskeletal: Musculoskeletal: Reports back pain and Denies limited range of motion Neurologic: Denies focal weakness and Denies convulsions Psychiatric: Psychiatric: Denies depression and Denies mood swings [facility] Past Medical History Medical History (Updated 08/17/25 @ 12:14 by Bharat Jackson MD) Abdominal pain MRSA (methicillin resistant Staphylococcus aureus) infection Anemia Anxiety MDD (major depressive disorder) Gout GERD (gastroesophageal reflux disease) Ambulates with cane Smoker Hyperuricemia Asthma Obese Osteoarthritis Trigger finger Carpal tunnel syndrome Hyperlipidemia LDL goal <100 Essential hypertension Hyperlipidemia Cellulitis, umbilical Family History Family History Father Diabetes Hypertension Stroke Heart attack, Onset Age: 50 Mother Multiple sclerosis Brother In good health Son In good health Son In good health Other Patient denies medical problems Surgical History Surgical History History of esophagogastroduodenoscopy (EGD) Hx of colonoscopy History of laparoscopic appendectomy History of foot surgery History of carpal tunnel release H/O: hysterectomy Social History Social History Household Members: Family Housing: Apartment Are you a primary live in caregiver to a significant other at home: No Do you presently have visiting nurse or other home services: Yes ([facility] 2x week) Alcohol intake: current Alcohol intake frequency: holidays/special occasions only Alcohol type: beer Patient Tobacco Use Status: Current everyday Tobacco user Tobacco use type: Cigarette Cigarette Packs Per Day: 0.5 Cigarettes Per Day: 7 Years Smoked: 46 Smoked in Last 30 Days: Yes e-Cigarette/Vaping Use: Never Used Patient Interested in Nicotine Replacement: No Patient Given Instructions on How to Stop Smoking: No Second Hand Smoke Exposure: Yes Use of substances other than those prescribed or required for medical reasons: No Currently Displaying Signs/Symptoms of Drug Intoxication Withdrawal: No Have you been hit, kicked, punched, or otherwise hurt by someone within the past year? If so, by whom?: No Do you feel safe in your current relationship?: Yes Is there a partner from a previous relationship who is making you feel unsafe now?: No Are you made to feel afraid or neglected: No Advance Directives: No Advance Directives Information Provided: No Do you have a plan to hurt others: No Plan Recently lost weight without trying: No How much weight loss: Not applicable Eating poorly because of decreased appetite: No Nutrition screen score: 0 Nutrition Risks: No Nutritional Risk Patient : No : No Poor oral hygiene: No service: No Current occupational status: disabled Cognitive needs: No Hearing needs: No Vision needs: Yes (glasses) Meds Allergies Allergy/AdvReac Type Severity Reaction Status Date / Time gabapentin Allergy Intermediate Nausea and Verified 08/16/25 12:13 Vomiting morphine (Morphine) Allergy Intermediate VOMITING Verified 08/16/25 12:13 oxycodone (Percocet) Allergy Intermediate Vomiting Verified 08/16/25 12:13 methocarbamol AdvReac Intermediate GI upset Verified 08/16/25 12:13 Active Medications: Current Medications Acetaminophen (Acetaminophen 325 Mg Tablet) 650 mg PO Q6H PRN PRN Reason: Pain, Mild 1-3,fever,headache Last Admin: 08/17/25 08:22 Dose: 650 mg Albuterol Sulfate (Albuterol Sulfate 90 Mcg 8 Gm Inhaler) 1 puff INHALE QID PRN PRN Reason: Shortness Of Breath Or Wheezing Allopurinol (Allopurinol 100 Mg Tablet) 100 mg PO DAILY COUNT INCLUDES THE [facility] Last Admin: 08/17/25 08:15 Dose: 100 mg Atorvastatin Calcium (Atorvastatin Calcium 40 Mg Tablet) 40 mg PO DAILY COUNT INCLUDES THE [facility] Last Admin: 08/17/25 08:14 Dose: 40 mg Baclofen (Baclofen 10 Mg Tablet) 10 mg PO BID PRN PRN Reason: Muscle Spasm Calcium Carbonate (Calcium Carbonate 750 Mg Tab.Chew) 750 mg PO Q4H PRN PRN Reason: Heartburn Cyanocobalamin (Cyanocobalamin (Vitamin B-12) 1,000 Mcg Tablet) 1,000 mcg PO DAILY COUNT INCLUDES THE [facility] Last Admin: 08/17/25 08:15 Dose: 1,000 mcg Enoxaparin Sodium (Enoxaparin Sodium 40 Mg/0.4 Ml Syringe) 40 mg SUBCUT Q24H COUNT INCLUDES THE [facility] Last Admin: 08/17/25 08:19 Dose: 40 mg Hydromorphone HCl (Hydromorphone Hcl 1 Mg/Ml Syringe) 0.5 mg IVPUSH Q4H PRN; Protocol PRN Reason: Pain, Severe (Pain Scale 7-10) Last Admin: 08/17/25 09:48 Dose: 0.5 mg Piperacillin Sod/Tazobactam (Sod 3.375 gm/ Sodium Chloride) 50 mls @ 100 mls/hr IV Q6H COUNT INCLUDES THE [facility] Last Infusion: 08/17/25 08:53 Dose: Infused Vancomycin HCl 750 mg/ Sodium (Chloride) 265 mls @ 265 mls/hr IV Q12H COUNT INCLUDES THE [facility] Last Infusion: 08/17/25 12:07 Dose: Infused Magnesium Hydroxide (Milk Of Magnesia 30 Ml Oral.Susp) 30 ml PO DAILY PRN PRN Reason: Constipation Magnesium Oxide (Magnesium Oxide 400 Mg Tablet) 200 mg PO DAILY COUNT INCLUDES THE [facility] Last Admin: 08/17/25 08:15 Dose: 200 mg Melatonin (Melatonin 3 Mg Tablet) 6 mg PO BEDTIME PRN PRN Reason: Insomnia Montelukast Sodium (Montelukast Sodium 10 Mg Tablet) 10 mg PO DAILY COUNT INCLUDES THE [facility] Last Admin: 08/17/25 08:15 Dose: 10 mg Multivitamins/Vitamin C (Multivitamin Tablet) 1 tab PO DAILY COUNT INCLUDES THE [facility] Last Admin: 08/17/25 08:15 Dose: 1 tab Pt Own (Ergotamine- Caffeine 1-100 Mg Tablet) 1 tab PO Q30M PRN PRN Reason: migraine headache Last Admin: 08/17/25 10:50 Dose: 1 tab Ondansetron HCl (Ondansetron Hcl 4 Mg/2 Ml Vial) 4 mg IVPUSH Q8H PRN PRN Reason: Nausea and Vomiting Pantoprazole Sodium (Pantoprazole Sodium 20 Mg Tablet.Dr) 40 mg PO DAILY@06 COUNT INCLUDES THE [facility] Last Admin: 08/17/25 05:41 Dose: 40 mg Pharmacy Consult (Consult Rx Vancomycin Dosing) 1 each MISCELLANE DAILY PRN PRN Reason: Consult order Polyethylene Glycol (Polyethylene Glycol 3350 17 Gm Powd.Pack) 17 gm PO DAILY PRN PRN Reason: Constipation Sodium Chloride (0.9 % Sodium Chloride Flush 3 Ml Syringe) 3 ml IVFLUSH QSHIFT COUNT INCLUDES THE [facility] Last Admin: 08/17/25 08:17 Dose: 3 ml Tizanidine HCl (Tizanidine Hcl 4 Mg Tablet) 2 mg PO Q8H COUNT INCLUDES THE [facility] On Hold: 08/16/25 20:45 Trazodone HCl (Trazodone Hcl 100 Mg Tablet) 400 mg PO BEDTIME COUNT INCLUDES THE [facility] Last Admin: 08/16/25 23:04 Dose: 400 mg Home Medications ?Medication ?Instructions ?Recorded ?Confirmed ?Last Taken ?Type multivitamin 1 tab PO DAILY 07/31/22 08/16/25 08/16/25 History omega-3 fatty acids 500 mg capsule 500 mg PO DAILY 03/01/25 08/16/25 08/16/25 History baclofen 10 mg tablet 10 mg PO BID PRN Muscle Spasm 04/08/25 08/16/25 06/14/25 History albuterol sulfate 90 mcg/actuation 1 puff inhalation QID PRN 06/14/25 08/16/25 Unknown History aerosol inhaler Shortness Of Breath Or Wheezing lidocaine 4 % topical patch 1 patch transdermal DAILY PRN Pain 08/16/25 08/16/25 Unknown History (Lidocaine Pain Relief) pantoprazole 40 mg tablet,delayed 40 mg PO DAILY@0630 08/16/25 08/16/25 08/16/25 History release Physical Exam Vital Signs: Vital Signs: Last Vital Signs Temp 96.8 F 08/17/25 07:31 Pulse 77 08/17/25 07:31 Resp 16 08/17/25 07:31 BP 114/58 L 08/17/25 07:31 Pulse Ox 94 08/17/25 07:31 O2 Del Method Room Air 08/17/25 07:31 BMI result Body Mass Index 33.6 Const: General: comfortable and no acute distress Nutritional Appearance: obese Resp: Effort & Inspection: normal respiratory effort Cardio: Rate: regular rate GI: Palpation (GI): Soft to palpation, not firm, nontender and no guarding Back/Spine/Pelvis: Other: Dressings noted in the mid back, dry Results Labs 08/16/25 12:27 08/18/25 05:05 Labs: Abnormal lab results 08/16/25 Range/Units 12: RDW 16.6 H (11.0-16.0) % MPV 8.5 L (9.4-12.3) fL ESR 62 H (0-20) MM/HR Random Glucose 118 H (60-115) mg/dL Calcium 10.8 H (8.4-10.2) mg/dL Alkaline Phosphatase 124 H (39-117) U/L C-Reactive Protein 1.86 H (< or = 0.50) mg/dL Total Protein 8.7 H (6.5-8.0) g/dL Ur Leukocyte Esterase Small (1+) H (Negative) Urine WBC 6-10 H (0-5) /HPF Short CBC 08/16/25 Range/Units 12: WBC 8.2 (4.8-10.8) X10*3/uL Hgb 12.6 (12.0-16.0) g/dl Hct 39.8 (37.0-47.0) % Plt Count 383 (160-400) X10*3/uL BMP 08/16/25 08/17/25 12:27 05:23 Sodium 138 Potassium 3.8 Chloride 102 Carbon Dioxide 25 BUN 16 Creatinine 1.01 0.87 Calcium 10.8 H Liver Function 08/16/25 Range/Units 12:27 Total Bilirubin 0.3 (0.0-1.0) mg/dL AST 26 (5-31) U/L ALT 13 (0-31) U/L Alkaline Phosphatase 124 H (39-117) U/L Albumin 4.5 (3.5-5.0) g/dL Urine 08/16/25 Range/Units 12:27 Urine Color Yellow Urine Appearance Clear Urine pH 5.5 (5.0-9.0) Ur Specific [place] 1.010 (1.005-1.025) Urine Protein Negative (Neg-Trace) mg/dL Urine Glucose (UA) Negative (Negative) mg/dL Urine Test NEGATIVE (NEGATIVE) All other labs normal. Assessment and Plan (1) Abdominal pain: Status: Acute She had been admitted because of her abdominal history of osteomyelitis and diskitis after lumbar decompression earlier this year I he had consulted because of her complaints of abdominal pain earlier today. Current exam is very benign. She denies any significant tenderness currently. She looks well overall. She is tolerating regular diet. She has had no fever. She has no significant leukocytosis . She has this persisted wound on the back at the area of the surgery but she does state that this has he has in size. She looks well overall and has very benign exam. She does not seem to be tender currently We will do serial exam while she is in the hospital. We will follow him closely. I would not recommend CAT scan at this time but this will depend on the rest of her course in the hospital. Procedures Date of Service Date of Service: 08/18/25
--- NOTE | 2025-08-17 13:22 | HO.WOUND ---
Wound Consult: Initial 54 yr old female admitted to [facility] on 08/16/25- See progress notes and H&P for detailed history. Wound consult placed for lumbar wound. Patient agreeable to assessment and photo documentation. Patient with chronic wounding to lumbar spine s/p surgical wound dehiscense. Patient with history of pressure injury to coccyx- now resurfaced. patient has been at home, reports unable to sit for long periods of time due to pain in buttocks, provided waffle cushion, educated on limited sit times and position changes to prevent skin breakdown. per hospitalist notes- neurosurgery team seen with no new recommendations Coccyx/buttocks Etiology: coccyx previous admission was unstageable pressure injury- now resurfaced Wound Bed: intact pink and blanching Drainage / Odor: none Alvaro wound: ? No Induration, Fluctuance or Warmth noted Pain: yes with sitting Goals of Treatment: ? foam dressing for offloading and pressure redistribution Lumbar Etiology: old surgical wound dehiscense Measurements: 0.5cm x 0.5cm x 1cm- tunnel at 11oclock approxmiately 3cm - did not probe deep due to pain Wound Bed: unable to visualize due to small opening Drainage / Odor: small/serosanguineous Edges: ? rolled - moist macerated Alvaro wound: ? No Induration, Fluctuance or Warmth noted Pain: mild Goals of Treatment: ? durafiber ag for drainage absorption Recommendations: 1. Turn and Reposition every 2 hours and as needed for patient comfort. Use pillows or wedges to support off loading positions. 2. Off Load all bony prominences with use of pillows and heel boots if needed. Apply Preventative foams where needed. 3. Monitor for incontinence and moisture control, use barrier creams when needed for prevention and treatment. 4. Provide adequate and supplemental nutrition. 5. Order or Continue low air loss mattress. 6. When applicable maintain blood glucose levels per Providers order. Lumbar: cleanse with saline, pat dry, apply skin prep alvaro wound, gently pack strip of durafiber ag leaving a tail for a wick, cover with foam, change daily and PRN. Coccyx/buttocks: Off Load Pressure with Q2 hr turns and use of pillows - Routine cleansing. Apply skin prep allow to dry. Cover with foam dressing to aid in off loading and protection from friction. Change every 3 days and PRN. Re-consult wound care Nurse for wound deterioration or wound changes.
[2025-08-17 15:11] VITALS: BP 107/57; PULSE 70; RESP 14; TEMP 36.5; O2SAT 93
--- NOTE | 2025-08-17 15:55 | MHC.CM.PN ---
PT REPORTS SHE LIVES WITH HER AND SON AND IS INDEPENDENT WITH CARE SHE IS ACTIVE WITH [facility] FOR WOUND CARE SERVICES PT USES A ROLLATOR FOR DME SHE SAYS SHE HAS A HCP NAMING HER HER AGENT, COPY REQUESTED PCP: HAYLEY CROCKETT IMM DELIVERED DCP: HOME RESUME [facility]. ? [facility] IF IV ABX INDICATED PT STATES SHE IS NOT GOING TO A STR AND CAN MANAGE MEDS AT HOME, SHE HAS DONE IV MEDS AT HOME IN THE PAST FAMILY TO TRANSPORT
[2025-08-17 20:00] VITALS: BP 116/57; PULSE 75; RESP 18; TEMP 36.2; O2SAT 96
[2025-08-17] MEDS: Lidocaine 4 % Patch ADH..PATCH 1 PATCH TRANSDERMA (22:28)
[2025-08-18 04:00] VITALS: BP 109/56; PULSE 73; RESP 17; TEMP 36.7; O2SAT 93
[2025-08-18 06:10] LABS: Creatinine Clr Calc Pharmacy 92.8; Estimated Glomerular Filt Rate > 60
--- NOTE | 2025-08-18 07:33 | P.PNIM_ITS ---
Subjective Subjective Date of Service: 08/18/25 Interval History: f/u Diskitis/osteomyelitis lumbar no fever, no neuro changes. Physical Exam 2 Vital Signs: Vital Signs: Last Vital Signs Temp 98.0 F 08/18/25 04:00 Pulse 73 08/18/25 04:00 Resp 17 08/18/25 04:00 BP 109/56 L 08/18/25 04:00 Pulse Ox 93 08/18/25 04:00 O2 Del Method Room Air 08/18/25 04:00 BMI result Body Mass Index 33.6 Const: Other: Gen: in no acute distress HEENT: sclera anicteric, moist mucus membranes Neck: supple Lungs: clear to auscultation bilaterally Heart: regular rate and rhythm, no murmurs Abd: soft, non-tender, non-distended Ext: no edema, no L knee swelling Skin: warm/well-perfused, lumbar wound with no drainage Neuro: alert and oriented x3, no focal findings Psych: appropriate affect Objective Data Active Medications Acetaminophen (Acetaminophen 325 Mg Tablet) 650 mg PO Q6H PRN PRN Reason: Pain, Mild 1-3,fever,headache Last Admin: 08/17/25 08:22 Dose: 650 mg Documented By: SEBASTIEN Albuterol Sulfate (Albuterol Sulfate 90 Mcg 8 Gm Inhaler) 1 puff INHALE QID PRN PRN Reason: Shortness Of Breath Or Wheezing Allopurinol (Allopurinol 100 Mg Tablet) 100 mg PO DAILY [facility] Last Admin: 08/17/25 08:15 Dose: 100 mg Documented By: SEBASTIEN Atorvastatin Calcium (Atorvastatin Calcium 40 Mg Tablet) 40 mg PO DAILY [facility] Last Admin: 08/17/25 08:14 Dose: 40 mg Documented By: SEBASTIEN Baclofen (Baclofen 10 Mg Tablet) 10 mg PO BID PRN PRN Reason: Muscle Spasm Calcium Carbonate (Calcium Carbonate 750 Mg Tab.Chew) 750 mg PO Q4H PRN PRN Reason: Heartburn Cyanocobalamin (Cyanocobalamin (Vitamin B-12) 1,000 Mcg Tablet) 1,000 mcg PO DAILY [facility] Last Admin: 08/17/25 08:15 Dose: 1,000 mcg Documented By: SEBASTIEN Enoxaparin Sodium (Enoxaparin Sodium 40 Mg/0.4 Ml Syringe) 40 mg SUBCUT Q24H [facility] Last Admin: 08/17/25 08:19 Dose: 40 mg Documented By: SEBASTIEN Hydromorphone HCl (Hydromorphone Hcl 1 Mg/Ml Syringe) 0.5 mg IVPUSH Q4H PRN; Protocol PRN Reason: Pain, Severe (Pain Scale 7-10) Last Admin: 08/18/25 06:35 Dose: 0.5 mg Documented By: PRITESH Piperacillin Sod/Tazobactam (Sod 3.375 gm/ Sodium Chloride) 50 mls @ 100 mls/hr IV Q6H [facility] Last Infusion: 08/18/25 03:05 Dose: Infused Documented By: PRITESH Vancomycin HCl 750 mg/ Sodium (Chloride) 265 mls @ 265 mls/hr IV Q12H [facility] Last Infusion: 08/17/25 23:33 Dose: Infused Documented By: PRITESH Lidocaine (Lidocaine 4 % Patch Adh..Patch) 1 patch TRANSDERMA DAILY [facility]; Protocol Last Admin: 08/17/25 22:28 Dose: 1 patch Documented By: PRITESH Magnesium Hydroxide (Milk Of Magnesia 30 Ml Oral.Susp) 30 ml PO DAILY PRN PRN Reason: Constipation Magnesium Oxide (Magnesium Oxide 400 Mg Tablet) 200 mg PO DAILY [facility] Last Admin: 08/17/25 08:15 Dose: 200 mg Documented By: SEBASTIEN Melatonin (Melatonin 3 Mg Tablet) 6 mg PO BEDTIME PRN PRN Reason: Insomnia Montelukast Sodium (Montelukast Sodium 10 Mg Tablet) 10 mg PO DAILY [facility] Last Admin: 08/17/25 08:15 Dose: 10 mg Documented By: SEBASTIEN Multivitamins/Vitamin C (Multivitamin Tablet) 1 tab PO DAILY [facility] Last Admin: 08/17/25 08:15 Dose: 1 tab Documented By: SEBASTIEN Pt Own (Ergotamine- Caffeine 1-100 Mg Tablet) 1 tab PO Q30M PRN PRN Reason: migraine headache Last Admin: 08/17/25 19:22 Dose: 1 tab Documented By: PRITESH Ondansetron HCl (Ondansetron Hcl 4 Mg/2 Ml Vial) 4 mg IVPUSH Q8H PRN PRN Reason: Nausea and Vomiting Pantoprazole Sodium (Pantoprazole Sodium 20 Mg Tablet.) 40 mg PO DAILY@0630 [facility] Last Admin: 08/18/25 06:05 Dose: 40 mg Documented By: PRITESH Pharmacy Consult (Consult Rx Vancomycin Dosing) 1 each MISCELLANE DAILY PRN PRN Reason: Consult order Polyethylene Glycol (Polyethylene Glycol 3350 17 Gm Powd.Pack) 17 gm PO DAILY PRN PRN Reason: Constipation Sodium Chloride (0.9 % Sodium Chloride Flush 3 Ml Syringe) 3 ml IVFLUSH QSHIFT [facility] Last Admin: 08/17/25 22:29 Dose: 3 ml Documented By: PRITESH Tizanidine HCl (Tizanidine Hcl 4 Mg Tablet) 2 mg PO Q8H [facility] On Hold: 08/16/25 20:45 Trazodone HCl (Trazodone Hcl 100 Mg Tablet) 400 mg PO BEDTIME [facility] Last Admin: 08/17/25 23:30 Dose: 400 mg Documented By: PRITESH Labs 08/16/25 12:27 08/18/25 05:05 Labs: Laboratory Results - last 24 hr 08/17/25 08/18/25 20:59 05:05 Hold Purple Top SEE NOTE Estim Creat Clear Calc 92.8 Estimated GFR > 60 Vancomycin Trough 15.4 Microbiology Microbiology Results: Microbiology 08/16/25 14:23 Blood Culture - Preliminary Blood - Venous No growth after 24 hours. 08/16/25 14:23 Blood Culture - Preliminary Blood - Venous No growth after 24 hours. 08/16/25 Unknown Urine Culture - Final Urine clean catch - Clean Catch Midstream Assessment and Plan (1) Diskitis: Status: Acute (2) Osteomyelitis: Status: Acute Plan 54yo F with L3-4, L4-5 spinal stenosis/lateral recess stenosis/neural foraminal stenosis, s/p right L3-4, L4-5 Laminotomy, Partial facetectomy and L5 foraminotomy 03/14/25 complicated by sepsis due to MRSA bacteremia due to diskitis/osteomyelitis L1-L4, seroma vs abscess, iliopsoas abscess completed Vanco and Zosyn in June and now with RL abd pain and found to have worsening Diskitis/osteomyelitis lumbar region Diskitis/osteomyelitis lumbar region vancomycin and Zosyn started 08/16/25 ID consult neurosurgery recommends no intervention and continue Abx monitor CBC and BMP Blood cultures still pending Likely will need PICC line for IV Abx once cultures negative. Wound infection ID consult and wound care antibiotics as above RLQ abd pain, pain is minimal, exam bening, seen by surgery no further testing at this time HTN hold med d/t low BP--not related to sepsis HLD statin Type 2 diabetes, resolved per pt, no home meds, A1C 5.5, check sugars as needed, and she doesn't want them checked GERD - PPI Tobacco use disorder - smoking cessation encouraged Class 1 obesity - BMI 33.6, weight loss encouraged Full code VTE prophylaxis: Lovenox Patient with continued diskitis and osteomyelitis with failed outpatient treatment, requiring admission for at least 2 midnight stay for IV antibiotics and specialist consultations. Quality Stroke Does the patient have a stroke diagnosis?: No VTE Prior VTE?: No VTE Risk Level:: Medical - moderate - high VTE Device Contraindication: N/A - Device Ordered VTE Drug Contraindication: N/A - Med Ordered
[2025-08-18 07:34] VITALS: BP 126/65; PULSE 73; RESP 14; TEMP 36; O2SAT 93
[2025-08-18] MEDS: Lidocaine 4 % Patch ADH..PATCH 1 PATCH TRANSDERMA (08:27)
--- NOTE | 2025-08-18 12:39 | MHC.CM.PN ---
EMR REVIEWED AND PER MD ROUNDS, PT IS AWAITING FINAL CULTURES/PICC PLACEMENT WELL ID CONSULT FOR PLAN. CM WILL CONTINUE TO FOLLOW FOR ANY CHANGE TO DC PLAN/NEEDS.
--- NOTE | 2025-08-18 13:46 | P.PNGS_ITS ---
Subjective Subjective Date of Service: 08/18/25 Interval history: Denies any abdominal pain Denies nausea or vomiting Denies any GI complaints Tolerating diet well Physical Exam 2 Vital Signs: Vital Signs: Last Vital Signs Temp 96.8 F 08/18/25 07:34 Pulse 73 08/18/25 07:34 Resp 14 08/18/25 07:34 BP 126/65 08/18/25 07:34 Pulse Ox 93 08/18/25 07:34 O2 Del Method Room Air 08/18/25 07:34 BMI result Body Mass Index 33.6 Const: General: comfortable and no acute distress Resp: Effort & Inspection: normal respiratory effort GI: Palpation (GI): Soft to palpation, not firm, nontender and no guarding Objective Data Active Medications Acetaminophen (Acetaminophen 325 Mg Tablet) 650 mg PO Q6H PRN PRN Reason: Pain, Mild 1-3,fever,headache Last Admin: 08/18/25 08:31 Dose: 650 mg Documented By: JAY Albuterol Sulfate (Albuterol Sulfate 90 Mcg 8 Gm Inhaler) 1 puff INHALE QID PRN PRN Reason: Shortness Of Breath Or Wheezing Allopurinol (Allopurinol 100 Mg Tablet) 100 mg PO DAILY [facility] Last Admin: 08/18/25 08:28 Dose: 100 mg Documented By: JAY Atorvastatin Calcium (Atorvastatin Calcium 40 Mg Tablet) 40 mg PO DAILY [facility] Last Admin: 08/18/25 08:28 Dose: 40 mg Documented By: JAY Baclofen (Baclofen 10 Mg Tablet) 10 mg PO BID PRN PRN Reason: Muscle Spasm Last Admin: 08/18/25 08:31 Dose: 10 mg Documented By: JAY Calcium Carbonate (Calcium Carbonate 750 Mg Tab.Chew) 750 mg PO Q4H PRN PRN Reason: Heartburn Cyanocobalamin (Cyanocobalamin (Vitamin B-12) 1,000 Mcg Tablet) 1,000 mcg PO DAILY [facility] Last Admin: 08/18/25 08:28 Dose: 1,000 mcg Documented By: JAY Enoxaparin Sodium (Enoxaparin Sodium 40 Mg/0.4 Ml Syringe) 40 mg SUBCUT Q24H [facility] Last Admin: 08/18/25 08:27 Dose: 40 mg Documented By: JAY Hydromorphone HCl (Hydromorphone Hcl 1 Mg/Ml Syringe) 0.5 mg IVPUSH Q4H PRN; Protocol PRN Reason: Pain, Severe (Pain Scale 7-10) Last Admin: 08/18/25 10:39 Dose: 0.5 mg Documented By: JAY Piperacillin Sod/Tazobactam (Sod 3.375 gm/ Sodium Chloride) 50 mls @ 100 mls/hr IV Q6H [facility] Last Infusion: 08/18/25 09:08 Dose: Infused Documented By: JAY Vancomycin HCl 750 mg/ Sodium (Chloride) 265 mls @ 265 mls/hr IV Q12H [facility] Last Infusion: 08/18/25 11:53 Dose: Infused Documented By: MICKY Lidocaine (Lidocaine 4 % Patch Adh..Patch) 1 patch TRANSDERMA DAILY [facility]; Protocol Last Admin: 08/18/25 08:27 Dose: 1 patch Documented By: JAY Magnesium Hydroxide (Milk Of Magnesia 30 Ml Oral.Susp) 30 ml PO DAILY PRN PRN Reason: Constipation Magnesium Oxide (Magnesium Oxide 400 Mg Tablet) 200 mg PO DAILY [facility] Last Admin: 08/18/25 08:27 Dose: 200 mg Documented By: JAY Melatonin (Melatonin 3 Mg Tablet) 6 mg PO BEDTIME PRN PRN Reason: Insomnia Montelukast Sodium (Montelukast Sodium 10 Mg Tablet) 10 mg PO DAILY [facility] Last Admin: 08/18/25 08:28 Dose: 10 mg Documented By: JAY Multivitamins/Vitamin C (Multivitamin Tablet) 1 tab PO DAILY [facility] Last Admin: 08/18/25 08:28 Dose: 1 tab Documented By: JAY Pt Own (Ergotamine- Caffeine 1-100 Mg Tablet) 1 tab PO Q30M PRN PRN Reason: migraine headache Last Admin: 08/18/25 12:23 Dose: 1 tab Documented By: JAY Ondansetron HCl (Ondansetron Hcl 4 Mg/2 Ml Vial) 4 mg IVPUSH Q8H PRN PRN Reason: Nausea and Vomiting Pantoprazole Sodium (Pantoprazole Sodium 20 Mg Tablet.) 40 mg PO DAILY@0630 [facility] Last Admin: 08/18/25 06:05 Dose: 40 mg Documented By: PRITESH Pharmacy Consult (Consult Rx Vancomycin Dosing) 1 each MISCELLANE DAILY PRN PRN Reason: Consult order Polyethylene Glycol (Polyethylene Glycol 3350 17 Gm Powd.Pack) 17 gm PO DAILY PRN PRN Reason: Constipation Sodium Chloride (0.9 % Sodium Chloride Flush 3 Ml Syringe) 3 ml IVFLUSH QSHIFT [facility] Last Admin: 08/18/25 09:08 Dose: Not Given Documented By: JAY Non-Admin Reason: IV Running Tizanidine HCl (Tizanidine Hcl 4 Mg Tablet) 2 mg PO Q8H [facility] On Hold: 08/16/25 20:45 Trazodone HCl (Trazodone Hcl 100 Mg Tablet) 400 mg PO BEDTIME [facility] Last Admin: 08/17/25 23:30 Dose: 400 mg Documented By: PRITESH Labs 08/16/25 12:27 08/18/25 05:05 Labs: Laboratory Results - last 24 hr 08/17/25 08/18/25 20:59 05:05 Hold Purple Top SEE NOTE Estim Creat Clear Calc 92.8 Estimated GFR > 60 Vancomycin Trough 15.4 Microbiology Microbiology Results: Microbiology 08/16/25 14:23 Blood Culture - Preliminary Blood - Venous No growth after 24 hours. 08/16/25 14:23 Blood Culture - Preliminary Blood - Venous No growth after 24 hours. 08/16/25 Unknown Urine Culture - Final Urine clean catch - Clean Catch Midstream Procedures Date of Service Date of Service: 08/18/25 Progress Note: A&P Assessment and plan (1) Abdominal pain: Status: Acute Assessment and Plan: She denies any abdominal pain Exam does not suggest any tenderness She has had no fever or chills No leukocytosis No apparent surgical issues with regards to the abdomen/GI tract Care as per the primary service Please reconsult as necessary Time Spent With Patient Time: Total time managing care of this patient today ____ minutes. Quality Stroke Does the patient have a stroke diagnosis?: No VTE Prior VTE?: No VTE Risk Level:: Medical - moderate - high VTE Device Contraindication: N/A - Device Ordered VTE Drug Contraindication: N/A - Med Ordered
[2025-08-18 15:10] VITALS: BP 112/61; PULSE 76; RESP 16; TEMP 36.2; O2SAT 93
[2025-08-18] MEDS: oxyCODONE HCl Immed Release 5 MG TABLET PO (17:20)
[2025-08-18 19:19] VITALS: BP 135/69; PULSE 75; RESP 18; TEMP 36.6; O2SAT 96
[2025-08-18] MEDS: 0.9 % Sodium Chloride Flush 3 ML SYRINGE IVFLUSH (21:03)
--- NOTE | 2025-08-18 23:04 | P.CNID_ITS ---
History of Present Illness Data of Consult Service Date: 08/18/25 Requesting physician: Cecilio Wolf Primary Care Provider: Festus Lang PA-C HPI Reason for consult: MRSA infection lumbar spine postop She presents to ER with pain in right lower quadrant,worsening ove last week. I had seen her in office yesterday. She was started on Bactrim due to ongoing MRSA infection spine and had MRSA in blood in April She has had six week Vancomycin and Daptomycin and po Batrim Review of Systems 2 Review of Systems: Yes all other systems are reviewed and are negative [facility] Past Medical History Medical History Abdominal pain MRSA (methicillin resistant Staphylococcus aureus) infection Anemia Anxiety MDD (major depressive disorder) Gout GERD (gastroesophageal reflux disease) Ambulates with cane Smoker Hyperuricemia Asthma Obese Osteoarthritis Trigger finger Carpal tunnel syndrome Hyperlipidemia LDL goal <100 Essential hypertension Hyperlipidemia Cellulitis, umbilical Family History Family History Father Diabetes Hypertension Stroke Heart attack, Onset Age: 50 Mother Multiple sclerosis Brother In good health Son In good health Son In good health Other Patient denies medical problems Family history: reviewed and not pertinent Surgical History Surgical History History of esophagogastroduodenoscopy (EGD) Hx of colonoscopy History of laparoscopic appendectomy History of foot surgery History of carpal tunnel release H/O: hysterectomy Social History Social History Household Members: Family Housing: Apartment Are you a primary skin care consultant to a significant other at home: No Do you presently have visiting nurse or other home services: Yes ([facility] 2x week) Alcohol intake: current Alcohol intake frequency: holidays/special occasions only Alcohol type: beer Patient Tobacco Use Status: Current everyday Tobacco user Tobacco use type: Cigarette Cigarette Packs Per Day: 0.5 Cigarettes Per Day: 7 Years Smoked: 46 Smoked in Last 30 Days: Yes e-Cigarette/Vaping Use: Never Used Patient Interested in Nicotine Replacement: No Patient Given Instructions on How to Stop Smoking: No Second Hand Smoke Exposure: Yes Use of substances other than those prescribed or required for medical reasons: No Currently Displaying Signs/Symptoms of Drug Intoxication Withdrawal: No Have you been hit, kicked, punched, or otherwise hurt by someone within the past year? If so, by whom?: No Do you feel safe in your current relationship?: Yes Is there a partner from a previous relationship who is making you feel unsafe now?: No Are you made to feel afraid or neglected: No Advance Directives: No Advance Directives Information Provided: No Do you have a plan to hurt others: No Plan Recently lost weight without trying: No How much weight loss: Not applicable Eating poorly because of decreased appetite: No Nutrition screen score: 0 Nutrition Risks: No Nutritional Risk Patient : No : No Poor oral hygiene: No service: No Current occupational status: disabled Cognitive needs: No Hearing needs: No Vision needs: Yes (glasses) Meds Allergies Allergy/AdvReac Type Severity Reaction Status Date / Time gabapentin Allergy Intermediate Nausea and Verified 08/16/25 12:13 Vomiting morphine (Morphine) Allergy Intermediate VOMITING Verified 08/16/25 12:13 oxycodone (Percocet) Allergy Intermediate Vomiting Verified 08/16/25 12:13 methocarbamol AdvReac Intermediate GI upset Verified 08/16/25 12:13 Active Medications: Current Medications Acetaminophen (Acetaminophen 325 Mg Tablet) 650 mg PO Q6H PRN PRN Reason: Pain, Mild 1-3,fever,headache Last Admin: 08/18/25 08:31 Dose: 650 mg Albuterol Sulfate (Albuterol Sulfate 90 Mcg 8 Gm Inhaler) 1 puff INHALE QID PRN PRN Reason: Shortness Of Breath Or Wheezing Allopurinol (Allopurinol 100 Mg Tablet) 100 mg PO DAILY [facility] Last Admin: 08/18/25 08:28 Dose: 100 mg Atorvastatin Calcium (Atorvastatin Calcium 40 Mg Tablet) 40 mg PO DAILY [facility] Last Admin: 08/18/25 08:28 Dose: 40 mg Baclofen (Baclofen 10 Mg Tablet) 10 mg PO BID PRN PRN Reason: Muscle Spasm Last Admin: 08/18/25 08:31 Dose: 10 mg Calcium Carbonate (Calcium Carbonate 750 Mg Tab.Chew) 750 mg PO Q4H PRN PRN Reason: Heartburn Cyanocobalamin (Cyanocobalamin (Vitamin B-12) 1,000 Mcg Tablet) 1,000 mcg PO DAILY [facility] Last Admin: 08/18/25 08:28 Dose: 1,000 mcg Enoxaparin Sodium (Enoxaparin Sodium 40 Mg/0.4 Ml Syringe) 40 mg SUBCUT Q24H [facility] Last Admin: 08/18/25 08:27 Dose: 40 mg Hydromorphone HCl (Hydromorphone Hcl 1 Mg/Ml Syringe) 0.5 mg IVPUSH Q4H PRN; Protocol PRN Reason: Pain, Severe (Pain Scale 7-10) Last Admin: 08/18/25 22:28 Dose: 0.5 mg Piperacillin Sod/Tazobactam (Sod 3.375 gm/ Sodium Chloride) 50 mls @ 100 mls/hr IV Q6H [facility] Last Infusion: 08/18/25 21:46 Dose: Infused Vancomycin HCl 1,000 mg/ (Sodium Chloride) 270 mls @ 270 mls/hr IV Q12H [facility] Last Admin: 08/18/25 22:31 Dose: 270 mls/hr Lidocaine (Lidocaine 4 % Patch Adh..Patch) 1 patch TRANSDERMA DAILY [facility]; Protocol Last Admin: 08/18/25 08:27 Dose: 1 patch Magnesium Hydroxide (Milk Of Magnesia 30 Ml Oral.Susp) 30 ml PO DAILY PRN PRN Reason: Constipation Magnesium Oxide (Magnesium Oxide 400 Mg Tablet) 200 mg PO DAILY [facility] Last Admin: 08/18/25 08:27 Dose: 200 mg Melatonin (Melatonin 3 Mg Tablet) 6 mg PO BEDTIME PRN PRN Reason: Insomnia Montelukast Sodium (Montelukast Sodium 10 Mg Tablet) 10 mg PO DAILY [facility] Last Admin: 08/18/25 08:28 Dose: 10 mg Multivitamins/Vitamin C (Multivitamin Tablet) 1 tab PO DAILY [facility] Last Admin: 08/18/25 08:28 Dose: 1 tab Pt Own (Ergotamine- Caffeine 1-100 Mg Tablet) 1 tab PO Q30M PRN PRN Reason: migraine headache Last Admin: 08/18/25 17:20 Dose: 1 tab Ondansetron HCl (Ondansetron Hcl 4 Mg/2 Ml Vial) 4 mg IVPUSH Q8H PRN PRN Reason: Nausea and Vomiting Oxycodone HCl (Oxycodone Hcl Immed Release 5 Mg Tablet) 5 mg PO Q6H PRN PRN Reason: Pain, Moderate(Pain Scale 4-6) Last Admin: 08/18/25 17:20 Dose: 5 mg Pantoprazole Sodium (Pantoprazole Sodium 20 Mg Tablet.) 40 mg PO DAILY@0630 [facility] Last Admin: 08/18/25 06:05 Dose: 40 mg Pharmacy Consult (Consult Rx Vancomycin Dosing) 1 each MISCELLANE DAILY PRN PRN Reason: Consult order Polyethylene Glycol (Polyethylene Glycol 3350 17 Gm Powd.Pack) 17 gm PO DAILY PRN PRN Reason: Constipation Sodium Chloride (0.9 % Sodium Chloride Flush 3 Ml Syringe) 3 ml IVFLUSH QSHIFT [facility] Last Admin: 08/18/25 21:03 Dose: 3 ml Tizanidine HCl (Tizanidine Hcl 4 Mg Tablet) 2 mg PO Q8H [facility] On Hold: 08/16/25 20:45 Trazodone HCl (Trazodone Hcl 100 Mg Tablet) 400 mg PO BEDTIME [facility] Last Admin: 08/18/25 22:27 Dose: 400 mg Home Medications ?Medication ?Instructions ?Recorded ?Confirmed ?Last Taken ?Type multivitamin 1 tab PO DAILY 07/31/220 03/0508/16/25 History omega-3 fatty acids 500 mg capsule 500 mg PO DAILY 08/16/25 08/16/25 History baclofen 10 mg tablet 10 mg PO BID PRN Muscle Spas m 04/08/25 08/16/25 06/14/25 History albuterol sulfate 90 mcg/actuation 1 puff inhalation Q ID PRN 06/14/25 08/16/25 Unknown History aerosol inhaler Shortness Of Breath Or Wheez ing lidocaine 4 % topical patch 1 patch transdermal DAILY PRN Pain 08/16/25 08/16/25 Unknown History (Lidocaine Pain Relief) pantoprazole 40 mg tablet,delayed 40 mg PO DAILY@0630 08/16/25 08/16/25 08/16/25 History release Physical Exam 2 Vital Signs: Vital Signs: Last Vital Signs Temp 97.9 F 08/18/25 19:19 Pulse 75 08/18/25 19:19 Resp 18 08/18/25 19:19 BP 135/69 08/18/25 19:19 Pulse Ox 96 08/18/25 19:19 O2 Del Method Room Air 08/18/25 19:19 BMI result Body Mass Index 33.6 Const: General: cooperative HEENT: Head: Yes normal to inspection Face and sinus: Yes normal facial exam Mouth: Normal oral and palatal mucosa present Teeth and gingiva: d entition normal Eyes: General: appearance normal, both eyes and all related structures P upils: Equal, round and reactive pupils present Resp: Effort & Inspection: normal respiratory effort Cardio: Rate: regular rate Rhythm: regular rhythm GI: Palpation (GI): Soft to palpation and nontender : General: Yes no CVA tenderness Back/Spine/Pelvis: Other: lower back pain ,fistula open likely Back: no CVA tenderness Skin: General skin exam: no rashes or lesions noted Neuro: General: moves all extremities Cranial nerves: Yes Equal, round and reactive pupils present Extrem: General: Yes normal to inspection Psych: Appearance: grossly normal Results Labs 08/16/25 12:27 08/18/25 05:05 Labs: BMP 08/18/25 05:05 Creatinine 0.72 Microbiology Microbiology Results: Microbiology 08/16/25 14:23 Blood - Venous Blood Culture - Preliminary No growth after 48 hours. 08/16/25 14:23 Blood - Venous Blood Culture - Preliminary No growth after 48 hours. 08/16/25 Unknown Urine clean catch - Clean Catch Midstream Urine Culture - Final Assessment and Plan (1) Wound infection after surgery: Status: Acute (2) Diskitis: Status: Acute (3) Osteomyelitis: Status: Acute Plan Infection is persistent and recurring. MRSA is source. Would give another six weeks IV Daptomycin and no further IV antibiotiics Weekly CK and creatinine.
[2025-08-19 03:52] VITALS: BP 108/58; PULSE 67; RESP 18; TEMP 36.6; O2SAT 92
[2025-08-19 07:00] LABS: Creatinine Clr Calc Pharmacy 84.6; Estimated Glomerular Filt Rate > 60
[2025-08-19 07:51] VITALS: BP 113/57; PULSE 78; RESP 16; TEMP 36.3; O2SAT 95
[2025-08-19] MEDS: Lidocaine 4 % Patch ADH..PATCH 1 PATCH TRANSDERMA (08:00)
[2025-08-19] MEDS: 0.9 % Sodium Chloride Flush 3 ML SYRINGE IVFLUSH ×3 (08:04→19:46)
--- NOTE | 2025-08-19 08:37 | P.PNIM_ITS ---
Subjective Subjective Date of Service: 08/19/25 Interval History: f/u Diskitis/osteomyelitis lumbar no fever, no neuro changes. Physical Exam 2 Vital Signs: Vital Signs: Last Vital Signs Temp 97.3 F 08/19/25 07:51 Pulse 78 08/19/25 07:51 Resp 16 08/19/25 07:51 BP 113/57 L 08/19/25 07:51 Pulse Ox 95 08/19/25 07:51 O2 Del Method Room Air 08/19/25 07:51 BMI result Body Mass Index 33.6 Const: Other: Gen: in no acute distress HEENT: sclera anicteric, moist mucus membranes Neck: supple Lungs: clear to auscultation bilaterally Heart: regular rate and rhythm, no murmurs Abd: soft, non-tender, non-distended Ext: no edema, no L knee swelling Skin: warm/well-perfused, lumbar wound with no drainage Neuro: alert and oriented x3, no focal findings Psych: appropriate affect Objective Data Active Medications Acetaminophen (Acetaminophen 325 Mg Tablet) 650 mg PO Q6H PRN PRN Reason: Pain, Mild 1-3,fever,headache Last Admin: 08/18/25 08:31 Dose: 650 mg Documented By: JAY Albuterol Sulfate (Albuterol Sulfate 90 Mcg 8 Gm Inhaler) 1 puff INHALE QID PRN PRN Reason: Shortness Of Breath Or Wheezing Allopurinol (Allopurinol 100 Mg Tablet) 100 mg PO DAILY [facility] Last Admin: 08/19/25 08:03 Dose: 100 mg Documented By: SEBASTIEN Atorvastatin Calcium (Atorvastatin Calcium 40 Mg Tablet) 40 mg PO DAILY [facility] Last Admin: 08/19/25 08:03 Dose: 40 mg Documented By: SEBASTIEN Baclofen (Baclofen 10 Mg Tablet) 10 mg PO BID PRN PRN Reason: Muscle Spasm Last Admin: 08/18/25 08:31 Dose: 10 mg Documented By: JAY Calcium Carbonate (Calcium Carbonate 750 Mg Tab.Chew) 750 mg PO Q4H PRN PRN Reason: Heartburn Cyanocobalamin (Cyanocobalamin (Vitamin B-12) 1,000 Mcg Tablet) 1,000 mcg PO DAILY [facility] Last Admin: 08/19/25 08:03 Dose: 1,000 mcg Documented By: SEBASTIEN Enoxaparin Sodium (Enoxaparin Sodium 40 Mg/0.4 Ml Syringe) 40 mg SUBCUT Q24H [facility] Last Admin: 08/19/25 08:02 Dose: 40 mg Documented By: SEBASTIEN Hydromorphone HCl (Hydromorphone Hcl 0.5 Mg/0.5 Ml Syringe) 0.5 mg IVPUSH Q4H PRN; Protocol PRN Reason: Pain, Severe (Pain Scale 7-10) Last Admin: 08/19/25 07:27 Dose: 0.5 mg Documented By: SEBASTIEN Piperacillin Sod/Tazobactam (Sod 3.375 gm/ Sodium Chloride) 50 mls @ 100 mls/hr IV Q6H [facility] Last Infusion: 08/19/25 03:33 Dose: Infused Documented By: MARY Vancomycin HCl 1,000 mg/ (Sodium Chloride) 270 mls @ 270 mls/hr IV Q12H [facility] Last Infusion: 08/18/25 23:37 Dose: Infused Documented By: MARY Lidocaine (Lidocaine 4 % Patch Adh..Patch) 1 patch TRANSDERMA DAILY [facility]; Protocol Last Admin: 08/19/25 08:00 Dose: 1 patch Documented By: SEBASTIEN Magnesium Hydroxide (Milk Of Magnesia 30 Ml Oral.Susp) 30 ml PO DAILY PRN PRN Reason: Constipation Magnesium Oxide (Magnesium Oxide 400 Mg Tablet) 200 mg PO DAILY [facility] Last Admin: 08/19/25 08:03 Dose: 200 mg Documented By: SEBASTIEN Melatonin (Melatonin 3 Mg Tablet) 6 mg PO BEDTIME PRN PRN Reason: Insomnia Montelukast Sodium (Montelukast Sodium 10 Mg Tablet) 10 mg PO DAILY [facility] Last Admin: 08/19/25 08:03 Dose: 10 mg Documented By: SEBASTIEN Multivitamins/Vitamin C (Multivitamin Tablet) 1 tab PO DAILY [facility] Last Admin: 08/19/25 08:03 Dose: 1 tab Documented By: SEBASTIEN Pt Own (Ergotamine- Caffeine 1-100 Mg Tablet) 1 tab PO Q30M PRN PRN Reason: migraine headache Last Admin: 08/19/25 08:08 Dose: 1 tab Documented By: SEBASTIEN Ondansetron HCl (Ondansetron Hcl 4 Mg/2 Ml Vial) 4 mg IVPUSH Q8H PRN PRN Reason: Nausea and Vomiting Oxycodone HCl (Oxycodone Hcl Immed Release 5 Mg Tablet) 5 mg PO Q6H PRN PRN Reason: Pain, Moderate(Pain Scale 4-6) Last Admin: 08/18/25 17:20 Dose: 5 mg Documented By: JAY Pantoprazole Sodium (Pantoprazole Sodium 20 Mg Tablet.) 40 mg PO DAILY@0630 [facility] Last Admin: 08/19/25 05:43 Dose: 40 mg Documented By: MARY Pharmacy Consult (Consult Rx Vancomycin Dosing) 1 each MISCELLANE DAILY PRN PRN Reason: Consult order Polyethylene Glycol (Polyethylene Glycol 3350 17 Gm Powd.Pack) 17 gm PO DAILY PRN PRN Reason: Constipation Sodium Chloride (0.9 % Sodium Chloride Flush 3 Ml Syringe) 3 ml IVFLUSH QSHIFT [facility] Last Admin: 08/19/25 08:04 Dose: 3 ml Documented By: SEBASTIEN Tizanidine HCl (Tizanidine Hcl 4 Mg Tablet) 2 mg PO Q8H [facility] On Hold: 08/16/25 20:45 Trazodone HCl (Trazodone Hcl 100 Mg Tablet) 400 mg PO BEDTIME [facility] Last Admin: 08/18/25 22:27 Dose: 400 mg Documented By: MARY Comments: pt requested med be administered at this time Labs 08/16/25 12:27 08/19/25 06:21 Labs: Laboratory Results - last 24 hr 08/18/25 08/19/25 08/19/25 20:59 06:21 06:22 Hold Purple Top SEE NOTE Estim Creat Clear Calc 84.6 Estimated GFR > 60 Random Vancomycin 12.9 L Microbiology Microbiology Results: Microbiology 08/16/25 14:23 Blood Culture - Preliminary Blood - Venous No growth after 48 hours. 08/16/25 14:23 Blood Culture - Preliminary Blood - Venous No growth after 48 hours. Assessment and Plan (1) Diskitis: Status: Acute (2) Osteomyelitis: Status: Acute Plan 54yo F with L3-4, L4-5 spinal stenosis/lateral recess stenosis/neural foraminal stenosis, s/p right L3-4, L4-5 Laminotomy, Partial facetectomy and L5 foraminotomy 03/14/25 complicated by sepsis due to MRSA bacteremia due to diskitis/osteomyelitis L1-L4, seroma vs abscess, iliopsoas abscess completed Vanco and Zosyn in June and now with RL abd pain and found to have worsening Diskitis/osteomyelitis lumbar region recurent Diskitis/osteomyelitis lumbar region s/p senior care Abx x 2 already vancomycin and Zosyn started 08/16/25 ID another 6 weeks of IV Daptomycin neurosurgery recommends no intervention and continue Abx monitor CBC and BMP Blood cultures still pending PICC line on Thursday if BCx remain negative Monitor LFTs, and CK Wound infection Abx as above RLQ abd pain, pain is minimal, exam bening, seen by surgery no further testing at this time HTN hold med d/t low BP--not related to sepsis HLD statin Type 2 diabetes, resolved per pt, no home meds, A1C 5.5, check sugars as needed, and she doesn't want them checked GERD - PPI Tobacco use disorder - smoking cessation encouraged Class 1 obesity - BMI 33.6, weight loss encouraged Full code VTE prophylaxis: Lovenox Patient with continued diskitis and osteomyelitis with failed outpatient treatment, requiring admission for at least 2 midnight stay for IV antibiotics and specialist consultations. Quality Stroke Does the patient have a stroke diagnosis?: No VTE Prior VTE?: No VTE Risk Level:: Medical - moderate - high VTE Device Contraindication: N/A - Device Ordered VTE Drug Contraindication: N/A - Med Ordered
[2025-08-19] MEDS: oxyCODONE HCl Immed Release 5 MG TABLET PO (10:30)
[2025-08-19 15:43] VITALS: BP 115/62; PULSE 62; RESP 20; TEMP 36.4; O2SAT 95
[2025-08-19 20:00] VITALS: BP 144/70; PULSE 62; RESP 20; TEMP 36.7; O2SAT 96
[2025-08-20 03:04] VITALS: BP 110/67; PULSE 70; RESP 17; TEMP 36.4; O2SAT 95
[2025-08-20 06:53] LABS: Creatinine Clr Calc Pharmacy 102.8; Estimated Glomerular Filt Rate > 60
[2025-08-20 07:30] VITALS: BP 124/72; PULSE 77; RESP 14; TEMP 36.1; O2SAT 94
[2025-08-20] MEDS: Lidocaine 4 % Patch ADH..PATCH 1 PATCH TRANSDERMA (08:17)
[2025-08-20] MEDS: oxyCODONE HCl Immed Release 5 MG TABLET PO ×2 (08:19→20:33)
[2025-08-20] MEDS: 0.9 % Sodium Chloride Flush 3 ML SYRINGE IVFLUSH ×3 (08:19→19:09)
--- NOTE | 2025-08-20 09:52 | P.PNIM_ITS ---
Subjective Subjective Date of Service: 08/20/25 Interval History: f/u Diskitis/osteomyelitis lumbar spine no fever, no neuro changes, pain is controlled Physical Exam 2 Vital Signs: Vital Signs: Last Vital Signs Temp 97.0 F 08/20/25 07:30 Pulse 77 08/20/25 07:30 Resp 14 08/20/25 07:30 BP 124/72 08/20/25 07:30 Pulse Ox 94 08/20/25 07:30 O2 Del Method Room Air 08/20/25 07:30 BMI result Body Mass Index 33.6 Const: Other: Gen: in no acute distress HEENT: sclera anicteric, moist mucus membranes Neck: supple Lungs: clear to auscultation bilaterally Heart: regular rate and rhythm, no murmurs Abd: soft, non-tender, non-distended Ext: no edema, no L knee swelling Skin: warm/well-perfused, lumbar wound with no drainage Neuro: alert and oriented x3, no focal findings Psych: appropriate affect Objective Data Active Medications Acetaminophen (Acetaminophen 325 Mg Tablet) 650 mg PO Q6H PRN PRN Reason: Pain, Mild 1-3,fever,headache Last Admin: 08/19/25 14:26 Dose: 650 mg Documented By: SEBASTIEN Albuterol Sulfate (Albuterol Sulfate 90 Mcg 8 Gm Inhaler) 1 puff INHALE QID PRN PRN Reason: Shortness Of Breath Or Wheezing Allopurinol (Allopurinol 100 Mg Tablet) 100 mg PO DAILY [facility] Last Admin: 08/20/25 08:19 Dose: 100 mg Documented By: SEBASTIEN Atorvastatin Calcium (Atorvastatin Calcium 40 Mg Tablet) 40 mg PO DAILY [facility] Last Admin: 08/20/25 08:19 Dose: 40 mg Documented By: SEBASTIEN Baclofen (Baclofen 10 Mg Tablet) 10 mg PO BID PRN PRN Reason: Muscle Spasm Last Admin: 08/18/25 08:31 Dose: 10 mg Documented By: JAY Calcium Carbonate (Calcium Carbonate 750 Mg Tab.Chew) 750 mg PO Q4H PRN PRN Reason: Heartburn Cyanocobalamin (Cyanocobalamin (Vitamin B-12) 1,000 Mcg Tablet) 1,000 mcg PO DAILY [facility] Last Admin: 08/20/25 08:19 Dose: 1,000 mcg Documented By: SEBASTIEN Enoxaparin Sodium (Enoxaparin Sodium 40 Mg/0.4 Ml Syringe) 40 mg SUBCUT Q24H [facility] Last Admin: 08/20/25 08:18 Dose: 40 mg Documented By: SEBASTIEN Hydromorphone HCl (Hydromorphone Hcl 0.5 Mg/0.5 Ml Syringe) 0.5 mg IVPUSH Q4H PRN; Protocol PRN Reason: Pain, Severe (Pain Scale 7-10) Last Admin: 08/20/25 09:34 Dose: 0.5 mg Documented By: SEBASTIEN Daptomycin 500 mg/ Sodium (Chloride) 60 mls @ 100 mls/hr IV Q24H [facility] Last Infusion: 08/19/25 11:02 Dose: Infused Documented By: SEBASTIEN Lidocaine (Lidocaine 4 % Patch Adh..Patch) 1 patch TRANSDERMA DAILY [facility]; Protocol Last Admin: 08/20/25 08:17 Dose: 1 patch Documented By: SEBASTIEN Magnesium Hydroxide (Milk Of Magnesia 30 Ml Oral.Susp) 30 ml PO DAILY PRN PRN Reason: Constipation Magnesium Oxide (Magnesium Oxide 400 Mg Tablet) 200 mg PO DAILY [facility] Last Admin: 08/20/25 08:19 Dose: 200 mg Documented By: SEBASTIEN Melatonin (Melatonin 3 Mg Tablet) 6 mg PO BEDTIME PRN PRN Reason: Insomnia Montelukast Sodium (Montelukast Sodium 10 Mg Tablet) 10 mg PO DAILY [facility] Last Admin: 08/20/25 08:19 Dose: 10 mg Documented By: SEBASTIEN Multivitamins/Vitamin C (Multivitamin Tablet) 1 tab PO DAILY [facility] Last Admin: 08/20/25 08:19 Dose: 1 tab Documented By: SEBASTIEN Pt Own (Ergotamine- Caffeine 1-100 Mg Tablet) 1 tab PO Q30M PRN PRN Reason: migraine headache Last Admin: 08/19/25 21:18 Dose: 1 tab Documented By: LEFEBVA Ondansetron HCl (Ondansetron Hcl 4 Mg/2 Ml Vial) 4 mg IVPUSH Q8H PRN PRN Reason: Nausea and Vomiting Oxycodone HCl (Oxycodone Hcl Immed Release 5 Mg Tablet) 5 mg PO Q6H PRN PRN Reason: Pain, Moderate(Pain Scale 4-6) Last Admin: 08/20/25 08:19 Dose: 5 mg Documented By: SEBASTIEN Pantoprazole Sodium (Pantoprazole Sodium 20 Mg Tablet.Dr) 40 mg PO DAILY@0630 [facility] Last Admin: 08/20/25 05:30 Dose: 40 mg Documented By: MARY Polyethylene Glycol (Polyethylene Glycol 3350 17 Gm Powd.Pack) 17 gm PO DAILY PRN PRN Reason: Constipation Sodium Chloride (0.9 % Sodium Chloride Flush 3 Ml Syringe) 3 ml IVFLUSH QSHIFT [facility] Last Admin: 08/20/25 08:19 Dose: 3 ml Documented By: SEBASTIEN Tizanidine HCl (Tizanidine Hcl 4 Mg Tablet) 2 mg PO Q8H [facility] On Hold: 08/16/25 20:45 Trazodone HCl (Trazodone Hcl 100 Mg Tablet) 400 mg PO BEDTIME [facility] Last Admin: 08/19/25 22:33 Dose: 400 mg Documented By: MARY Comments: pt requested med at this time Labs 08/16/25 12:27 08/20/25 06:06 Labs: Laboratory Results - last 24 hr 08/20/25 06:06 Estim Creat Clear Calc 102.8 Estimated GFR > 60 Microbiology Microbiology Results: Microbiology 08/16/25 14:23 Blood Culture - Preliminary Blood - Venous No growth after 48 hours. 08/16/25 14:23 Blood Culture - Preliminary Blood - Venous No growth after 48 hours. Assessment and Plan (1) Diskitis: Status: Acute (2) Osteomyelitis: Status: Acute Plan 54yo F with L3-4, L4-5 spinal stenosis/lateral recess stenosis/neural foraminal stenosis, s/p right L3-4, L4-5 Laminotomy, Partial facetectomy and L5 foraminotomy 03/14/25 complicated by sepsis due to MRSA bacteremia due to diskitis/osteomyelitis L1-L4, seroma vs abscess, iliopsoas abscess completed Vanco and Zosyn in June and now with RL abd pain and found to have worsening Diskitis/osteomyelitis lumbar region essentially no new changes Recurent Diskitis/osteomyelitis lumbar region s/p nursing home Abx x 2 already vancomycin and Zosyn started 08/16/25 ID another 6 weeks of IV Daptomycin neurosurgery recommends no intervention and continue Abx monitor CBC and BMP Blood cultures still pending PICC line on Thursday if BCx remain negative Monitor LFTs, and CK Wound infection Abx as above RLQ abd pain, pain is minimal, exam bening, seen by surgery no further testing at this time HTN hold med d/t low BP--not related to sepsis HLD statin Type 2 diabetes, resolved per pt, no home meds, A1C 5.5, check sugars as needed, and she doesn't want them checked GERD - PPI Tobacco use disorder - smoking cessation encouraged Class 1 obesity - BMI 33.6, weight loss encouraged Full code VTE prophylaxis: Lovenox Patient with continued diskitis and osteomyelitis with failed outpatient treatment, requiring admission for at least 2 midnight stay for IV antibiotics and specialist consultations. Quality Stroke Does the patient have a stroke diagnosis?: No VTE Prior VTE?: No VTE Risk Level:: Medical - moderate - high VTE Device Contraindication: N/A - Device Ordered VTE Drug Contraindication: N/A - Med Ordered
[2025-08-20 16:00] VITALS: BP 110/66; PULSE 69; RESP 16; TEMP 36; O2SAT 94
[2025-08-20 20:00] VITALS: BP 146/69; PULSE 80; RESP 16; TEMP 36.2; O2SAT 97
[2025-08-21 03:23] VITALS: BP 127/54; PULSE 68; RESP 18; TEMP 36; O2SAT 95
[2025-08-21] MEDS: oxyCODONE HCl Immed Release 5 MG TABLET PO ×2 (05:34→13:07)
[2025-08-21 06:34] LABS: Creatinine Clr Calc Pharmacy 83.6; Estimated Glomerular Filt Rate > 60
[2025-08-21 07:41] VITALS: BP 132/69; PULSE 64; RESP 16; TEMP 36.6; O2SAT 97
--- NOTE | 2025-08-21 08:31 | P.PNIM_ITS ---
Subjective Subjective Date of Service: 08/21/25 Interval History: f/u Diskitis/osteomyelitis lumbar spine no fever, no neuro changes, pain is controlled Has migraine REYNA today Physical Exam 2 Vital Signs: Vital Signs: Last Vital Signs Temp 97.8 F 08/21/25 07:41 Pulse 64 08/21/25 07:41 Resp 16 08/21/25 07:41 BP 132/69 08/21/25 07:41 Pulse Ox 97 08/21/25 07:41 O2 Del Method Room Air 08/21/25 07:41 BMI result Body Mass Index 33.6 Const: Other: exam unchanged, no neurological changes. Objective Data Active Medications Acetaminophen (Acetaminophen 325 Mg Tablet) 650 mg PO Q6H PRN PRN Reason: Pain, Mild 1-3,fever,headache Last Admin: 08/19/25 14:26 Dose: 650 mg Documented By: SEBASTIEN Albuterol Sulfate (Albuterol Sulfate 90 Mcg 8 Gm Inhaler) 1 puff INHALE QID PRN PRN Reason: Shortness Of Breath Or Wheezing Allopurinol (Allopurinol 100 Mg Tablet) 100 mg PO DAILY [facility] Last Admin: 08/20/25 08:19 Dose: 100 mg Documented By: SEBASTIEN Atorvastatin Calcium (Atorvastatin Calcium 40 Mg Tablet) 40 mg PO DAILY [facility] Last Admin: 08/20/25 08:19 Dose: 40 mg Documented By: SEBASTIEN Baclofen (Baclofen 10 Mg Tablet) 10 mg PO BID PRN PRN Reason: Muscle Spasm Last Admin: 08/18/25 08:31 Dose: 10 mg Documented By: JAY Calcium Carbonate (Calcium Carbonate 750 Mg Tab.Chew) 750 mg PO Q4H PRN PRN Reason: Heartburn Cyanocobalamin (Cyanocobalamin (Vitamin B-12) 1,000 Mcg Tablet) 1,000 mcg PO DAILY [facility] Last Admin: 08/20/25 08:19 Dose: 1,000 mcg Documented By: SEBASTIEN Enoxaparin Sodium (Enoxaparin Sodium 40 Mg/0.4 Ml Syringe) 40 mg SUBCUT Q24H [facility] Last Admin: 08/20/25 08:18 Dose: 40 mg Documented By: SEBASTIEN Hydromorphone HCl (Hydromorphone Hcl 1 Mg/Ml Syringe) 0.5 mg IVPUSH Q4H PRN; Protocol PRN Reason: Pain, Severe (Pain Scale 7-10) Last Admin: 08/21/25 06:36 Dose: 0.5 mg Documented By: MARY Daptomycin 500 mg/ Sodium (Chloride) 60 mls @ 100 mls/hr IV Q24H [facility] Last Infusion: 08/20/25 11:19 Dose: Infused Documented By: SEBASTIEN Lidocaine (Lidocaine 4 % Patch Adh..Patch) 1 patch TRANSDERMA DAILY [facility]; Protocol Last Admin: 08/20/25 08:17 Dose: 1 patch Documented By: SEBASTIEN Magnesium Hydroxide (Milk Of Magnesia 30 Ml Oral.Susp) 30 ml PO DAILY PRN PRN Reason: Constipation Magnesium Oxide (Magnesium Oxide 400 Mg Tablet) 200 mg PO DAILY [facility] Last Admin: 08/20/25 08:19 Dose: 200 mg Documented By: SEBASTIEN Melatonin (Melatonin 3 Mg Tablet) 6 mg PO BEDTIME PRN PRN Reason: Insomnia Montelukast Sodium (Montelukast Sodium 10 Mg Tablet) 10 mg PO DAILY [facility] Last Admin: 08/20/25 08:19 Dose: 10 mg Documented By: SEBASTIEN Multivitamins/Vitamin C (Multivitamin Tablet) 1 tab PO DAILY [facility] Last Admin: 08/20/25 08:19 Dose: 1 tab Documented By: SEBASITEN Pt Own (Ergotamine- Caffeine 1-100 Mg Tablet) 1 tab PO Q30M PRN PRN Reason: migraine headache Last Admin: 08/21/25 06:32 Dose: 1 tab Documented By: MARY Ondansetron HCl (Ondansetron Hcl 4 Mg/2 Ml Vial) 4 mg IVPUSH Q8H PRN PRN Reason: Nausea and Vomiting Oxycodone HCl (Oxycodone Hcl Immed Release 5 Mg Tablet) 5 mg PO Q6H PRN PRN Reason: Pain, Moderate(Pain Scale 4-6) Last Admin: 08/21/25 05:34 Dose: 5 mg Documented By: MARY Pantoprazole Sodium (Pantoprazole Sodium 20 Mg Tablet.Dr) 40 mg PO DAILY@0630 [facility] Last Admin: 08/21/25 05:29 Dose: 40 mg Documented By: MARY Polyethylene Glycol (Polyethylene Glycol 3350 17 Gm Powd.Pack) 17 gm PO DAILY PRN PRN Reason: Constipation Sodium Chloride (0.9 % Sodium Chloride Flush 3 Ml Syringe) 3 ml IVFLUSH QSHIFT [facility] Last Admin: 08/20/25 19:09 Dose: 3 ml Documented By: MAYR Tizanidine HCl (Tizanidine Hcl 4 Mg Tablet) 2 mg PO Q8H [facility] On Hold: 08/16/25 20:45 Trazodone HCl (Trazodone Hcl 100 Mg Tablet) 400 mg PO BEDTIME [facility] Last Admin: 08/20/25 21:58 Dose: 400 mg Documented By: MARY Labs 08/16/25 12:27 08/21/25 06:09 Labs: Laboratory Results - last 24 hr 08/21/25 06:09 Estim Creat Clear Calc 83.6 Estimated GFR > 60 Microbiology Microbiology Results: Microbiology 08/16/25 14:23 Blood Culture - Preliminary Blood - Venous No growth after 48 hours. 08/16/25 14:23 Blood Culture - Preliminary Blood - Venous No growth after 48 hours. Assessment and Plan (1) Diskitis: Status: Acute (2) Osteomyelitis: Status: Acute Plan 54yo F with L3-4, L4-5 spinal stenosis/lateral recess stenosis/neural foraminal stenosis, s/p right L3-4, L4-5 Laminotomy, Partial facetectomy and L5 foraminotomy 03/14/25 complicated by sepsis due to MRSA bacteremia due to diskitis/osteomyelitis L1-L4, seroma vs abscess, iliopsoas abscess completed Vanco and Zosyn in June and now with RL abd pain and found to have worsening Diskitis/osteomyelitis lumbar region essentially no new changes Recurent Diskitis/osteomyelitis lumbar region s/p jail Abx x 2 already vancomycin and Zosyn started 08/16/25 ID another 6 weeks of IV Daptomycin neurosurgery recommends no intervention and continue Abx monitor CBC and BMP Blood cultures negative x 48 hrs PICC line today Monitor LFTs, and CK Wound infection Abx as above RLQ abd pain, pain is minimal, exam bening, seen by surgery no further testing at this time HTN hold med d/t low BP--not related to sepsis HLD statin Type 2 diabetes, resolved per pt, no home meds, A1C 5.5, check sugars as needed, and she doesn't want them checked GERD - PPI Tobacco use disorder - smoking cessation encouraged Class 1 obesity - BMI 33.6, weight loss encouraged Full code VTE prophylaxis: Lovenox Patient with continued diskitis and osteomyelitis with failed outpatient treatment, requiring admission for at least 2 midnight stay for IV antibiotics and specialist consultations. Quality Stroke Does the patient have a stroke diagnosis?: No VTE Prior VTE?: No VTE Risk Level:: Medical - moderate - high VTE Device Contraindication: N/A - Device Ordered VTE Drug Contraindication: N/A - Med Ordered
[2025-08-21] MEDS: 0.9 % Sodium Chloride Flush 3 ML SYRINGE IVFLUSH ×3 (09:03→23:05)
[2025-08-21] MEDS: Lidocaine 4 % Patch ADH..PATCH 1 PATCH TRANSDERMA (09:03)
--- NOTE | 2025-08-21 13:30 | MHC.CM.PN ---
Patient awaiting PICC placement. Likely dc tomorrow. OC to bedside for teach/orders. [facility] updated. Patient aware and agreeable to plan. Reports she has managed IV abx in the past w/ 's assistance.
--- NOTE | 2025-08-21 15:48 | P.PNID_ITS ---
Subjective Subjective Date of Service: 08/21/25 Critical Care Time (minutes): 15 Comment: she was supposed to see me today as outpatient I am seeing her in hospital she still has pain in back but maybe less drainage Objective Data Labs 08/16/25 12:27 08/21/25 06:09 Labs: Laboratory Results - last 24 hr 08/21/25 06:09 Creatinine 0.80 Estim Creat Clear Calc 83.6 Estimated GFR > 60 Microbiology Microbiology Results: Microbiology 08/16/25 14:23 Blood - Venous Blood Culture - Preliminary No growth after 48 hours. 08/16/25 14:23 Blood - Venous Blood Culture - Preliminary No growth after 48 hours. 08/16/25 Unknown Urine clean catch - Clean Catch Midstream Urine Culture - Final Physical Exam 2 Vital Signs: Vital Signs: Last Vital Signs Temp 97.8 F 08/21/25 07:41 Pulse 64 08/21/25 07:41 Resp 16 08/21/25 07:41 BP 132/69 08/21/25 07:41 Pulse Ox 97 08/21/25 07:41 O2 Del Method Room Air 08/21/25 07:41 BMI result Body Mass Index 33.6 Const: General: cooperative HEENT: Head: Yes normal to inspection Teeth and gingiva: dentition normal Resp: Effort & Inspection: normal respiratory effort Cardio: Rate: regular rate GI: Other: nontender Back/Spine/Pelvis: Other: same Assessment and Plan Assessment and plan (1) Diskitis: Status: Acute (2) Osteomyelitis: Status: Acute Plan up to six more weeks IV Daptomycin treat possible flare see patient back in two weeks Weekly CBC creatinine and CK. Time Spent With Patient Time: Total time managing care of this patient today ____ minutes.
[2025-08-21 16:00] VITALS: BP 122/74; PULSE 80; RESP 18; TEMP 36.9; O2SAT 92
[2025-08-21 19:33] VITALS: BP 137/80; PULSE 74; RESP 16; TEMP 36.4; O2SAT 94
[2025-08-22 03:20] VITALS: BP 115/55; PULSE 73; RESP 17; TEMP 36.5; O2SAT 94
[2025-08-22 07:13] LABS: Creatinine Clr Calc Pharmacy 95.5; Estimated Glomerular Filt Rate > 60
[2025-08-22] MEDS: Lidocaine 4 % Patch ADH..PATCH 1 PATCH TRANSDERMA (07:52)
[2025-08-22] MEDS: 0.9 % Sodium Chloride Flush 3 ML SYRINGE IVFLUSH (07:53)
[2025-08-22 08:00] VITALS: BP 145/75; PULSE 88; RESP 16; TEMP 36.8; O2SAT 92
--- NOTE | 2025-08-22 09:12 | P.PNIM_ITS ---
Subjective Subjective Date of Service: 08/22/25 Interval History: f/u Diskitis/osteomyelitis lumbar spine No new issues, awaiting PICC line Physical Exam 2 Vital Signs: Vital Signs: Last Vital Signs Temp 98.3 F 08/22/25 08:00 Pulse 88 08/22/25 08:00 Resp 16 08/22/25 08:00 BP 145/75 H 08/22/25 08:00 Pulse Ox 92 08/22/25 08:00 O2 Del Method Room Air 08/22/25 08:00 BMI result Body Mass Index 33.6 Const: Other: exam unchanged, no neurological changes. Objective Data Active Medications Acetaminophen (Acetaminophen 325 Mg Tablet) 650 mg PO Q6H PRN PRN Reason: Pain, Mild 1-3,fever,headache Last Admin: 08/19/25 14:26 Dose: 650 mg Documented By: SEBASTIEN Albuterol Sulfate (Albuterol Sulfate 90 Mcg 8 Gm Inhaler) 1 puff INHALE QID PRN PRN Reason: Shortness Of Breath Or Wheezing Allopurinol (Allopurinol 100 Mg Tablet) 100 mg PO DAILY [facility] Last Admin: 08/22/25 07:52 Dose: 100 mg Documented By: FABRICE Atorvastatin Calcium (Atorvastatin Calcium 40 Mg Tablet) 40 mg PO DAILY [facility] Last Admin: 08/22/25 07:52 Dose: 40 mg Documented By: FABRICE Baclofen (Baclofen 10 Mg Tablet) 10 mg PO BID PRN PRN Reason: Muscle Spasm Last Admin: 08/18/25 08:31 Dose: 10 mg Documented By: JAY Calcium Carbonate (Calcium Carbonate 750 Mg Tab.Chew) 750 mg PO Q4H PRN PRN Reason: Heartburn Last Admin: 08/21/25 19:31 Dose: 750 mg Documented By: LEFEBELIZABETH Cyanocobalamin (Cyanocobalamin (Vitamin B-12) 1,000 Mcg Tablet) 1,000 mcg PO DAILY [facility] Last Admin: 08/22/25 07:52 Dose: 1,000 mcg Documented By: FABRICE Enoxaparin Sodium (Enoxaparin Sodium 40 Mg/0.4 Ml Syringe) 40 mg SUBCUT Q24H [facility] Last Admin: 08/22/25 07:53 Dose: 40 mg Documented By: FABRICE Hydromorphone HCl (Hydromorphone Hcl 1 Mg/Ml Syringe) 0.5 mg IVPUSH Q4H PRN; Protocol PRN Reason: Pain, Severe (Pain Scale 7-10) Last Admin: 08/22/25 07:51 Dose: 0.5 mg Documented By: FABRICE Daptomycin 500 mg/ Sodium (Chloride) 60 mls @ 100 mls/hr IV Q24H [facility] Last Infusion: 08/21/25 10:15 Dose: Infused Documented By: FABRICE Lidocaine (Lidocaine 4 % Patch Adh..Patch) 1 patch TRANSDERMA DAILY [facility]; Protocol Last Admin: 08/22/25 07:52 Dose: 1 patch Documented By: FABRICE Magnesium Hydroxide (Milk Of Magnesia 30 Ml Oral.Susp) 30 ml PO DAILY PRN PRN Reason: Constipation Magnesium Oxide (Magnesium Oxide 400 Mg Tablet) 200 mg PO DAILY [facility] Last Admin: 08/22/25 07:52 Dose: 200 mg Documented By: FABRICE Melatonin (Melatonin 3 Mg Tablet) 6 mg PO BEDTIME PRN PRN Reason: Insomnia Montelukast Sodium (Montelukast Sodium 10 Mg Tablet) 10 mg PO DAILY [facility] Last Admin: 08/22/25 07:52 Dose: 10 mg Documented By: FABRICE Multivitamins/Vitamin C (Multivitamin Tablet) 1 tab PO DAILY [facility] Last Admin: 08/22/25 07:52 Dose: 1 tab Documented By: FABRICE Pt Own (Ergotamine- Caffeine 1-100 Mg Tablet) 1 tab PO Q30M PRN PRN Reason: migraine headache Last Admin: 08/22/25 07:51 Dose: 1 tab Documented By: FABRICE Ondansetron HCl (Ondansetron Hcl 4 Mg/2 Ml Vial) 4 mg IVPUSH Q8H PRN PRN Reason: Nausea and Vomiting Oxycodone HCl (Oxycodone Hcl Immed Release 5 Mg Tablet) 5 mg PO Q6H PRN PRN Reason: Pain, Moderate(Pain Scale 4-6) Last Admin: 08/21/25 13:07 Dose: 5 mg Documented By: FABRICE Pantoprazole Sodium (Pantoprazole Sodium 20 Mg Tablet.) 40 mg PO DAILY@0630 [facility] Last Admin: 08/22/25 06:15 Dose: 40 mg Documented By: MARY Polyethylene Glycol (Polyethylene Glycol 3350 17 Gm Powd.Pack) 17 gm PO DAILY PRN PRN Reason: Constipation Sodium Chloride (0.9 % Sodium Chloride Flush 3 Ml Syringe) 3 ml IVFLUSH QSHIFT [facility] Last Admin: 08/22/25 07:53 Dose: 3 ml Documented By: FABRICE Tizanidine HCl (Tizanidine Hcl 4 Mg Tablet) 2 mg PO Q8H [facility] On Hold: 08/16/25 20:45 Trazodone HCl (Trazodone Hcl 100 Mg Tablet) 400 mg PO BEDTIME [facility] Last Admin: 08/21/25 23:05 Dose: 400 mg Documented By: MARY Comments: pt requested it to be given at this time Labs 08/16/25 12:27 08/22/25 06:07 Labs: Laboratory Results - last 24 hr 08/22/25 06:07 Estim Creat Clear Calc 95.5 Estimated GFR > 60 Microbiology Microbiology Results: Microbiology 08/16/25 14:23 Blood Culture - Final Blood - Venous No growth after 5 days. 08/16/25 14:23 Blood Culture - Final Blood - Venous No growth after 5 days. Assessment and Plan (1) Diskitis: Status: Acute (2) Osteomyelitis: Status: Acute Plan 54yo F with L3-4, L4-5 spinal stenosis/lateral recess stenosis/neural foraminal stenosis, s/p right L3-4, L4-5 Laminotomy, Partial facetectomy and L5 foraminotomy 03/14/25 complicated by sepsis due to MRSA bacteremia due to diskitis/osteomyelitis L1-L4, seroma vs abscess, iliopsoas abscess completed Vanco and Zosyn in June and now with RL abd pain and found to have worsening Diskitis/osteomyelitis lumbar region Essentially no new changes Recurent Diskitis/osteomyelitis lumbar region s/p long term Abx x 2 already vancomycin and Zosyn started 08/16/25 ID recommends 6 weeks of IV Daptomycin neurosurgery recommends no intervention and continue Abx monitor CBC and BMP Blood cultures negative x 48 hrs PICC line today Monitor LFTs, and CK Wound infection Abx as above RLQ abd pain, pain is minimal, exam bening, seen by surgery no further testing at this time HTN hold med d/t low BP--not related to sepsis HLD statin Type 2 diabetes, resolved per pt, no home meds, A1C 5.5, check sugars as needed, and she doesn't want them checked GERD - PPI Tobacco use disorder - smoking cessation encouraged Class 1 obesity - BMI 33.6, weight loss encouraged Full code VTE prophylaxis: Lovenox Patient with continued diskitis and osteomyelitis with failed outpatient treatment, requiring admission for at least 2 midnight stay for IV antibiotics and specialist consultations. Dispo: home with home infusion today once PICC line obtained Quality Stroke Does the patient have a stroke diagnosis?: No VTE Prior VTE?: No VTE Risk Level:: Medical - moderate - high VTE Device Contraindication: N/A - Device Ordered VTE Drug Contraindication: N/A - Med Ordered
--- NOTE | 2025-08-22 10:10 | P.PICC_ITS ---
PICC Line Insertion NPICC Diagnosis: Osteomyelitis Indication: residential ABT Pertinent Labs: reviewed Technique: Following informed consent including risks, benefits and alternatives and using sterile technique including cap and mask, sterile gown, glove and drape, the right arm was prepped and draped in the usual sterile fashion of full barrier technique with CHG. Following completion of [place] Protocol the skin and soft tissues were anesthetized with 1% Lidocaine plain. Using ultrasound guidance, right basilic vein access was obtained. Over an 0.018 wire through peel-away sheath, a 4fr single lumen PICC line was positioned. Catheter length is 42cm internal length, 0cm external length, for a total trimmed length of 42cm. The procedure was performed in 7. Tip verification was performed by Ida Akbar with Sherlock 3CG. Tip located in SVC. Ultrasound was used to document vein patency and for needle entry. A formal ultrasound picture and cardiac rhythm strip was recorded. Vascular Roof Painter has released the line for use and it is currently dressed with a StatLock, Tegaderm, and CHG disc. Verification has been performed for blood return and line patency. Arm Circumference: 32cm Equipment: [place] POWER PICC SOLO with Sherlock 3cg tip Catheter Type: 4fr single lumen PASV Lot #: [id number]
[2025-08-22] MEDS: oxyCODONE HCl Immed Release 5 MG TABLET PO (10:11)
--- NOTE | 2025-08-22 14:32 | W.MHC.F2F ---
Service Date Service Date: 08/22/25 Encounter Date of encounter: 08/22/25 Reasons for Services Signs and symptoms assessed: Back pain, weakness, Back infection Reason for penitentiary: medication management, medication treatment and teach disease management Homebound: Leaving the home is medically contraindicated at this time without the asist of a device and/or another person due th the listed conditions above and below. Reason homebound: fall risk related to blood pressure changes, pain with ambulation and weakness related to hospital stay Homebound supporting statement: Homebound due to back pain due to diskitis, difficulty ambulating and therefore needs the assistance of another person Certification: Based on the above findings, I certify that this patient is confined to the home and needs intermittent penitentiary care, physical therapy and/or speech therapy, or continues to need occupational therapy. The patient is under my care, and I have initiated the establishment of the plan of care. The patient will be followed by a physician who will periodically review the plan of care. Time Spent With Patient Time: Total time managing care of this patient today ____ minutes.
[2025-08-22 14:48] VITALS: BP 136/71; PULSE 97; RESP 16; TEMP 36.6; O2SAT 98
--- NOTE | 2025-08-22 15:40 | PM.DS ---
DS: Providers Provider Date of Service: 08/22/25 Date of admission: 08/16/25 18:05 Date of discharge: 08/22/25 Primary care physician: Festus Lang PA-C Consults: 08/16/25 20:32 Consult to Infectious Diseases Routine Consulting Provider: [facility] [place] [facility] Reason for consultation: persistent discitis and osteo Has provider been notified: No Consult to Neurosurgery Routine Consulting Provider: Juan Diego Bull Reason for consultation: recurrent discitis and osteo s/p laminectomy Has provider been notified: Yes 08/16/25 20:51 Consult to Wound Care Routine Consulting Provider: [facility] [place] Wound Care Management Reason for consultation: lumbar surgery wound infection 08/17/25 10:28 Consult to General Surgery Routine Consulting Provider: [facility] [place] General Surgeons Reason for consultation: Severe right lower quadrant abdominal pain. Patient has known cyst here. Has provider been notified: No 08/19/25 08:42 Consult to Infectious Diseases Routine Consulting Provider: [facility] [place] Infect[facility] Reason for consultation: Spinal osteomylitis Has provider been notified: Yes DS: Diagnosis Discharge Diagnosis (1) Diskitis: Status: Acute (2) Osteomyelitis: Status: Acute DS: Summary Hospital Course Hospital Course: admission hpi Chief Complaint: back pain Patient is a 54-year-old female with a past medical history significant for history of MRSA, HTN, HLD, T2 DM, GERD, smoker and recent osteomyelitis/diskitis s/p laminectomy. The patient has had a difficult course since her laminectomy with 2 failed courses of IV antibiotics via PICC line for osteomyelitis and diskitis as well as left psoas muscle abscess and myositis of the paraspinal musculature. She reported to the ED per recommendation from Infectious Disease due to continued infection. She has had purulent discharge from the surgical site and continued right-sided abdominal pain and midback pain. She reports her pain is a 9/10 at this time. When she had diskitis previously her symptoms with the same. She denies any fever, chills, nausea, vomiting, urinary symptoms. MRI today shows interval progression of destructive changes related to osteomyelitis and diskitis involving L1-L3-4 disc space. There is overall increased extent of involvement with an L1 and decreased changes in L3. Near resolution of the left psoas muscle abscess. Evidence of improving myositis involving the paraspinal musculature. Interval decreased of postoperative fluid likely seroma in the subcutaneous soft tissues dorsal to L3-4. No epidural abscess. Neurosurgery was consulted who suggested no surgical intervention warranted as the patient has had no surgical hardware and underwent as simple lumbar decompression D procedure. 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 Hospital course: 54yo F with L3-4, L4-5 spinal stenosis/lateral recess stenosis/neural foraminal stenosis, s/p right L3-4, L4-5 Laminotomy, Partial facetectomy and L5 foraminotomy 03/14/25 complicated by sepsis due to MRSA bacteremia due to diskitis/osteomyelitis L1-L4, seroma vs abscess, iliopsoas abscess completed Vanco and Zosyn in June and now with RL abd pain and found to have worsening Diskitis/osteomyelitis lumbar region Recurent Diskitis/osteomyelitis lumbar region s/p fci Abx x 2 already vancomycin and Zosyn started 08/16/25 ID recommends 6 weeks of IV Daptomycin end date september 27, 2025 neurosurgery recommends no intervention and continue Abx monitor CBC and BMP Blood cultures negative x 48 hrs PICC line inserted 08/22/25, Monitor LFTs, and CK Outpatient follow up with ID Wound infection Abx as above RLQ abd pain, pain is minimal, exam bening, seen by surgery no further testing at this time HTN Resume home meds HLD To hold Lipitor while on Dapto Type 2 diabetes, resolved per pt, no home meds, A1C 5.5, check sugars as needed, and she doesn't want them checked GERD - PPI Tobacco use disorder - smoking cessation encouraged Dispo: Home with [facility] Time Attestation Discharge Coordination Time (in mins): 45 Quality: Safe Use of Opioids Does Pt have an Active Cancer Diagnosis on the Problem List?: No Quality: Stroke Does the patient have a stroke diagnosis?: No Physical Exam Exam: Exam: SEE PROGRESS NOTE Vital Signs: Vital Signs: Last Vital Signs Temp 97.8 F 08/22/25 14:48 Pulse 97 08/22/25 14:48 Resp 16 08/22/25 14:48 BP 136/71 08/22/25 14:48 Pulse Ox 98 08/22/25 14:48 O2 Del Method Room Air 08/22/25 14:48 BMI result Body Mass Index 33.6 DS: Data Data Completed and Pending Completed studies during hospitalization [Text1]: Procedures Insertion of Infusion Device into Superior Vena Cava, Percutaneous Approach (06/14/25) Ultrasonography of Heart with Aorta, Transesophageal (04/08/25) Ultrasonography of Superior Vena Cava, Guidance (06/14/25) Labs on day of discharge: Laboratory Results - last 24 hr 08/22/25 06:07 Creatinine 0.70 Estim Creat Clear Calc 95.5 Estimated GFR > 60 Discharge Plan Discharge Anticipated Discharge Date/Time: 08/22/25 14:12 Patient Disposition: Xfer SNF Discharge Diagnosis: Recurrent diskitis [facility]errals: [facility] [Other] - 1 Week Referral Note: IV supplies and medication [facility] [Outside] - 1 Week Festus Lang PA-C [Primary Care Provider, Internal Medicine] - 1 Week Discharge Medications: New hydromorphone [Dilaudid] 2 mg tablet 2 mg PO Q6H PRN (Reason: pain (scale score 7-10)) Qty: 28 0RF Rx Instructions: Partial Fill upon patient request. daptomycin 500 mg Recon Soln 500 mg IV Q24H Qty: 36 0RF Continued diclofenac sodium 75 mg tablet,delayed release (DR/EC) 75 mg PO BID 90 Days Qty: 180 2RF losartan 50 mg tablet 50 mg PO DAILY Qty: 90 5RF montelukast 10 mg tablet 10 mg PO DAILY 90 Days Qty: 90 8RF (DME) rollator walker with seat See Rx Instructions .Route .MEDSUPPLY Qty: 1 0RF Rx Instructions: As directed clonidine HCl 0.3 mg tablet 0.3 mg PO BEDTIME Qty: 90 2RF cyanocobalamin (vitamin B-12) [Vitamin B-12] 1,000 mcg tablet 1,000 mcg PO DAILY Qty: 90 1RF tizanidine 2 mg tablet 2 mg PO Q8H 15 Days Qty: 45 3RF allopurinol 100 mg tablet 100 mg PO DAILY Qty: 30 11RF magnesium oxide 250 mg magnesium tablet 250 mg PO DAILY 90 Days Qty: 90 2RF trazodone 100 mg tablet 400 mg PO BEDTIME 30 Days Qty: 120 6RF omega-3 fatty acids 500 mg Capsule 500 mg PO DAILY baclofen 10 mg tablet 10 mg PO BID PRN (Reason: Muscle Spasm) albuterol sulfate 90 mcg/actuation HFA aerosol inhaler 1 puff INHALATION QID PRN (Reason: Shortness Of Breath Or Wheezing) lidocaine [Lidocaine Pain Relief] 4 % adhesive patch,medicated 1 patch transdermal DAILY PRN (Reason: Pain) Protocol: Apply to: Apply to: left knee anterior pantoprazole 40 mg tablet,delayed release (DR/EC) 40 mg PO DAILY@0630 multivitamin Tablet 1 tab PO DAILY ergotamine-caffeine 1-100 mg tablet 1 tab PO Q30M MDD 6 mg PRN (Reason: migraine headache) 30 Days Qty: 30 7RF Rx Instructions: do not exceed 6 mg per day or 10 mg per wk Held atorvastatin 40 mg tablet 40 mg PO DAILY 90 Days Qty: 90 1RF Hold Instructions: Resume on 09/28/25. Discharge Orders: Discharge Order (Routine); Ordered 08/22/25 Ordered By: Cecilio Wolf Diet: Advance to usual diet Activity on Discharge: As tolerated Stand Alone Forms: Patient Portal Discharge page Print Language: Tamazight Care Plan Goals: recovery from osteomylitis of spine/diskitis Health Concerns: see above Plan of Treatment: take Daptomycin for 6 weeks via PICC line, follow up with Dr Ansari and your primary care doctor Stop taking Lipitor until you finish antibiotics (Daptomycin) Assessment: see above Discharge Date/Time: 08/22/25 14:52
== END 2025-08-22 14:52 | disposition skilled nursing facility (03) | DRG 863 ==
LOC: HO.ED 18:11 → HO.EDOVER 18:32 → HO.S3 19:23
PROVIDERS: Physician Assistant; Physician Assistant Medical; Admitting Provider Internal Medicine; Emergency Provider Emergency Medicine; PCP Physician Assistant; Visit Provider Internal Medicine
DX: T81.40XA Infection following a procedure, unspecified, initial encounter (principal); M46.26 Osteomyelitis of vertebra, lumbar region; Y83.8 Other surgical procedures as the cause of abnormal reaction of the patient, or of later complication, without mention of misadventure at the time of the procedure; M46.46 Discitis, unspecified, lumbar region; I10 Essential (primary) hypertension; E78.5 Hyperlipidemia, unspecified; E11.9 Type 2 diabetes mellitus without complications; E66.811 Obesity, class 1; Z71.3 Dietary counseling and surveillance; Z68.33 Body mass index [BMI] 33.0-33.9, adult; K21.9 Gastro-esophageal reflux disease without esophagitis; F17.210 Nicotine dependence, cigarettes, uncomplicated; Z86.14 Personal history of Methicillin resistant Staphylococcus aureus infection; Z71.6 Tobacco abuse counseling; Z23 Encounter for immunization; Z79.899 Other long term (current) drug therapy
CPT/HCPCS: 36415; 36573; 72158; 80053; 80202; 81001; 81025; 82565; 83036; 83605; 84702; 85025; 85652; 86140; 87040; 87086; 90656; 99212; 99285; A9585; C1751; J0878; J1171; J1650; J2543; J3373; J3374

== ENCOUNTER → 2025-08-16 13:54 | Outpatient (BNV) | payer MEDICARE, MEDICAID, SELFPAY | PROVIDERS: Emergency Provider Emergency Medicine; PCP Physician Assistant; Visit Provider Radiology Diagnostic Radiology | DX: M46.26 Osteomyelitis of vertebra, lumbar region (principal); M48.061 Spinal stenosis, lumbar region without neurogenic claudication | CPT/HCPCS: 72158 ==

== ENCOUNTER → 2025-08-16 18:05 | Outpatient (BNV) | payer MEDICARE, MEDICAID, SELFPAY | PROVIDERS: Admitting Provider Internal Medicine; Emergency Provider Emergency Medicine; PCP Physician Assistant; Visit Provider Physician Assistant | DX: R10.31 Right lower quadrant pain (principal); Z48.89 Encounter for other specified surgical aftercare | CPT/HCPCS: 99221; 99499 ==

== ENCOUNTER → 2025-08-16 18:05 | Outpatient (BNV) | payer MEDICARE, MEDICAID, SELFPAY | PROVIDERS: Admitting Provider Internal Medicine; Emergency Provider Emergency Medicine; PCP Physician Assistant; Visit Provider Internal Medicine | DX: M86.9 Osteomyelitis, unspecified (principal); T81.49XA Infection following a procedure, other surgical site, initial encounter; M46.40 Discitis, unspecified, site unspecified | CPT/HCPCS: 99222; 99232 ==

== ENCOUNTER → 2025-08-16 18:05 | Outpatient (BNV) | payer MEDICARE, MEDICAID, SELFPAY | PROVIDERS: Admitting Provider Internal Medicine; Emergency Provider Emergency Medicine; PCP Physician Assistant; Visit Provider Physician Assistant | DX: M46.46 Discitis, unspecified, lumbar region (principal); M46.26 Osteomyelitis of vertebra, lumbar region; T81.49XA Infection following a procedure, other surgical site, initial encounter; F17.200 Nicotine dependence, unspecified, uncomplicated; E66.9 Obesity, unspecified | CPT/HCPCS: 99223; 99232; 99233 ==

== ENCOUNTER → 2025-08-16 18:05 | Outpatient (BNV) | payer MEDICARE, MEDICAID, SELFPAY | PROVIDERS: Admitting Provider Internal Medicine; Emergency Provider Emergency Medicine; PCP Physician Assistant; Visit Provider Surgery | DX: R10.31 Right lower quadrant pain (principal) | CPT/HCPCS: 99222; 99232 ==

== ENCOUNTER 2025-08-30 14:55 | Outpatient (REF) | payer MEDICARE, MEDICAID, SELFPAY ==
[2025-08-30 16:12] LABS: Estimated Glomerular Filt Rate > 60
== END 2025-08-30 14:56 | disposition home or self-care (01) ==
LOC: HO.HVNA 14:55
PROVIDERS: Visit Provider Internal Medicine
DX: M46.26 Osteomyelitis of vertebra, lumbar region (principal)
CPT/HCPCS: 36415; 82550; 82565

== ENCOUNTER 2025-09-06 12:10 | Outpatient (REF) | payer MEDICARE, MEDICAID, SELFPAY ==
[2025-09-06 13:17] LABS: Estimated Glomerular Filt Rate > 60
== END 2025-09-06 12:11 | disposition home or self-care (01) ==
LOC: HO.HVNA 12:10
PROVIDERS: Visit Provider Internal Medicine
DX: M46.26 Osteomyelitis of vertebra, lumbar region (principal)
CPT/HCPCS: 36415; 82550; 82565

== ENCOUNTER 2025-09-08 13:47 | Emergency (ER) | payer MEDICARE, MEDICAID, SELFPAY ==
--- NOTE | ~2025-09-08 | CT_ITS ---
EXAMINATION: CT LUMBAR SPINE WITH IV CONTRAST CLINICAL INFORMATION: lumbar surgical hx, psoas.disk infection COMPARISON: MR of the lumbar spine on August 16, 2025. Abdomen/pelvis CT on June 20, 2025. TECHNIQUE: CT of the lumbar spine was obtained following intravenous administration of 85 cc of a Omnipaque 350. Images were reconstructed in axial, sagittal and coronal planes. This CT examination was performed using dose optimization techniques as appropriate, variously including the following: *Automated exposure control *Adjustment of mA and/or kV according to patient size (this includes techniques or standardized protocols for targeted exams where dose is matched to indication/reason for exam; i.e. extremities or head) *Use of iterative reconstruction technique FINDINGS: Direct comparison between the current study and the most recent lumbar spine MRI is limited due to differences in soft tissue contrast. Allowing to differences in modalities, the findings are as follows: Alignment: Grade 1 retrolisthesis of L2 on L3 and L3 on L4, similar to prior examination. Vertebrae/disc spaces: Redemonstration of findings of known osteomyelitis/osteodiscitis extending from L1-L2 down to L3-L4. Destructive changes of L2 vertebral body appears mildly progressed from previous MR study. Destructive/erosive changes at L1-L2, L2-L3 and L3-L4 may be similar to prior MR study, but are progressed from CT from June 2025. Soft tissues: Postoperative changes in the soft tissues of the lower back at approximately L3 vertebral body height persists. Previously seen fluid collection within the posterior paraspinal subcutaneous fat at about L3-L4 appears decreased. Small abscess seen within the left iliopsoas muscle is not currently seen. No interval development of new abscess/fluid collections. Additional findings: Vascular calcifications. Hypodensity right renal lesion, likely a cyst. Colonic diverticula. Persistent mildly enlarged left retroperitoneal/para-aortic lymph nodes, surrounded by mild fat stranding. CT/CT lumbar spine w IV con IMPRESSION: Allowing to differences in modalities, in comparison to previous MR study from August 16, 2025: 1. Redemonstration of findings of known osteomyelitis/discitis extending from L1-L2 down to L3-L4. 2. Mild interval progression of the destructive changes of the L2 vertebral body. 3. Previously seen fluid collections in the posterior paraspinal soft tissues and left iliopsoas muscle are not well seen on the current study and presumed decreased. No interval development of new abscess/fluid collection. 4. Persistent retroperitoneal lymphadenopathy. Electronically signed by: David Mendez MD 09/08/2025 04:52 PM [facility]
[2025-09-08 14:15] VITALS: BP 150/89; PULSE 91; RESP 16; TEMP 36.4; O2SAT 99; BMI 29.7
--- NOTE | 2025-09-08 14:16 | ED.GENADULT ---
HPI - General Adult General Chief complaint: Back Pain/Injury Stated complaint: lower back pain and stomach pain Time Seen by Provider: 09/08/25 14:29 History of Present Illness ED Provider: thiago ESCALANTE narrative: Author / Clinician: Mustapha Hudson MD (Emergency Medicine) Chief Complaint Persistent low back pain following spinal surgery and ongoing wound infection; patient out of hydromorphone for 3 days. History of Present Illness The patient presents to the Emergency Department for worsening low back pain located primarily in the right lower lumbar region. Pain is described as the same quality and intensity as prior episodes and is attributed by the patient to a persistent postoperative spinal infection rather than lack of hydromorphone. The patient recently completed 20 tablets of hydromorphone and has been without this medication for the past three days. Infection history: This is the patient?s third antibiotic course for the wound infection. Current regimen is daptomycin, started approximately 1? weeks ago. Prior courses included vancomycin (initial course?reported improvement) and an unspecified antibiotic during a stay at [facility] (patient declines returning there). Most recent MRI reportedly demonstrated persistent infection. Follow-up care: Infectious Disease provider is managing antibiotics but would not address pain control. Primary care provider (Festus Lang) has no available appointments until February. Neurosurgery unable to provide earlier follow-up. Associated symptoms: Denies bowel or bladder incontinence. Uses a walker since surgery. Review of Systems - Musculoskeletal: Positive for persistent low back pain. - Neurologic: Negative for bowel/bladder incontinence; ambulatory with walker. - Genitourinary: Voiding without difficulty. - Gastrointestinal: Bowel movements normal. Physical Exam: - General: Alert, in moderate discomfort, ambulatory with walker. - Back/Wound: Midline thoracolumbar surgical site noted; small midline crack/plaque present. Dressing applied in ED. - Neurologic/Motor: Able to straight-leg raise bilaterally without focal deficit. Emergency Department Course CT scan of spine ordered. Blood work obtained. Wound cleansed and dressing applied. Short-term analgesia provided; patient counseled that narcotics will not be supplied indefinitely and outpatient coordination with treating physicians is necessary. Assessment & Plan Diagnosis: 1. 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 2. Chronic postoperative low back pain. Plan: - Imaging: CT spine to evaluate for ongoing infection/osseous involvement. - Laboratory: Blood work obtained. - Pain control: Will provide short-term pain control in ED; explained no long-term opioid refills from ED. - Wound care: Dressing applied in ED. - Follow-up: Encourage expedited appointments with Infectious Disease, Neurosurgery, and PCP (Festus Lang) for ongoing management. Disposition Patient does not appear septic and does not require hospital admission at this time. Related Data Home Medications ?Medication ?Instructions ?Recorded ?Confirmed multivitamin 1 tab PO DAILY 07/31/22 08/16/25 omega-3 fatty acids 500 mg capsule 500 mg PO DAILY 03/01/25 08/16/25 baclofen 10 mg tablet 10 mg PO BID PRN Muscle Spasm 04/08/25 08/16/25 albuterol sulfate 90 mcg/actuation 1 puff inhalation QID PRN 06/14/25 08/16/25 aerosol inhaler Shortness Of Breath Or Wheezing lidocaine 4 % topical patch 1 patch transdermal DAILY PRN Pain 08/16/25 08/16/25 (Lidocaine Pain Relief) pantoprazole 40 mg tablet,delayed 40 mg PO DAILY@0630 08/16/25 08/16/25 release Previous Rx's ?Medication ?Instructions ?Recorded diclofenac sodium 75 mg 75 mg PO BID 90 days #180 tabs 03/22/24 tablet,delayed release losartan 50 mg tablet 50 mg PO DAILY #90 tabs 10/15/24 montelukast 10 mg tablet 10 mg PO DAILY 90 days #90 tabs 01/18/25 ergotamine 1 mg-caffeine 100 mg 1 tab PO Q30M PRN migraine 02/01/25 tablet headache 30 days #30 tabs rollator walker with seat #1 ea 02/20/25 clonidine HCl 0.3 mg tablet 0.3 mg PO BEDTIME #90 tabs 03/27/25 cyanocobalamin (vitamin B-12) 1,000 mcg PO DAILY #90 tabs 03/27/25 1,000 mcg tablet (Vitamin B-12) tizanidine 2 mg tablet 2 mg PO Q8H muscle spasticity 15 07/03/25 days #45 tabs allopurinol 100 mg tablet 100 mg PO DAILY #30 tabs 08/11/25 atorvastatin 40 mg tablet 40 mg PO DAILY 90 days #90 tabs 08/11/25 Held on 08/22/25. Instructions: Resume on 09/28/25. magnesium oxide 250 mg PO DAILY 90 days #90 tabs 08/11/25 trazodone 100 mg tablet 400 mg (4 x 100 mg) PO BEDTIME 30 08/14/25 days #120 tabs daptomycin 500 mg intravenous 500 mg IV Q24H #36 ea 08/22/25 solution hydromorphone 2 mg tablet 2 mg PO Q6H PRN pain (scale score 08/22/25 (Dilaudid) 7-10) #28 tabs hydromorphone 2 mg tablet 2 mg PO Q6H PRN pain #10 tabs 09/08/25 (Dilaudid) Allergies Allergy/AdvReac Type Severity Reaction Status Date / Time gabapentin Allergy Intermediate Nausea and Verified 09/08/25 14:19 Vomiting morphine (Morphine) Allergy Intermediate VOMITING Verified 09/08/25 14:19 oxycodone (Percocet) Allergy Intermediate Vomiting Verified 09/08/25 14:19 methocarbamol AdvReac Intermediate GI upset Verified 09/08/25 14:19 PMFSH Past Medical History Medical History Abdominal pain MRSA (methicillin resistant Staphylococcus aureus) infection Anemia Anxiety MDD (major depressive disorder) Gout GERD (gastroesophageal reflux disease) Ambulates with cane Smoker Hyperuricemia Asthma Obese Osteoarthritis Trigger finger Carpal tunnel syndrome Hyperlipidemia LDL goal <100 Essential hypertension Hyperlipidemia Cellulitis, umbilical Surgical History History of esophagogastroduodenoscopy (EGD) Hx of colonoscopy History of laparoscopic appendectomy History of foot surgery History of carpal tunnel release H/O: hysterectomy Family History Family History Father Diabetes Hypertension Stroke Heart attack, Onset Age: 50 Mother Multiple sclerosis Brother In good health Son In good health Son In good health Other Patient denies medical problems Social History Social History Household Members: Family Housing: Apartment Are you a primary care professional to a significant other at home: No Do you presently have visiting nurse or other home services: Yes ([facility] 2x week) Alcohol intake: current Alcohol intake frequency: holidays/special occasions only Alcohol type: beer Patient Tobacco Use Status: Current everyday Tobacco user Tobacco use type: Cigarette Cigarette Packs Per Day: 0.5 Cigarettes Per Day: 7 Years Smoked: 46 e-Cigarette/Vaping Use: Never Used Second Hand Smoke Exposure: Yes Advance Directives: Yes Advance Directives on File: Yes Advance Directives Date on File: 06/22/25 service: No Current occupational status: disabled Cognitive needs: No Hearing needs: No Vision needs: Yes (glasses) Physical Exam ED Vital Signs: Vital Signs - 24 hr 09/08/25 14:15 09/08/25 16:35 Temperature 97.6 F 97.6 F Pulse Rate 91 67 Respiratory Rate 16 17 Blood Pressure 150/89 H 102/64 Pulse Oximetry 99 93 Oxygen Delivery Method Room Air Room Air BMI result Body Mass Index 29.7 Course Course Course Narrative: Rapid medical examination performed in triage by Michelle Marinelli PA-C: Patient is a 54 year old assigned female at presenting to the emergency department with low back pain. Patient states that she has a back infection s/p spinal surgery and was recently admitted for this. Patient states that she is still getting ABX through a PICC line and is now having lower abdominal pain. Detailed physical exam and review of systems are deferred to the substance abuse clinician. Labs ordered. Patient placed back in the waiting room pending room availability and results. Medications Administered Discontinued Medications Generic Name Dose Route Start Last Admin Trade Name Freq PRN Reason Stop Dose Admin Hydromorphone HCl 1 mg 09/08/25 14:36 09/08/25 15:28 Hydromorphone Hcl 1 Mg/Ml Syringe IVPUSH 09/08/25 14:37 1 mg ONCE ONE Administration Protocol Iohexol 100 ml 09/08/25 16:01 09/08/25 16:01 Iohexol 350 Mg/Ml 100 Ml Infus..Btl IV 09/08/25 16:02 85 ml ONCE ONE Administration Medical Decision Making Medical Decision Making MDM Narrative: Medical Decision Making: [age] female with persistent diskitis resolving psoas abscess with a PICC line in place on daptomycin she reports about 12 days. Reporting significant pain however it appears this is because she has run out of her home hydromorphone 2 mg t.i.d. or b.i.d.. She has has not had access to this. No acute or changing neurologic symptoms she is able to ambulate with a walker as usual. No night sweats Preliminary Favored Differential Diagnosis: Chronic back infection, intractable pain, radiculopathy among additional considered etiologies Testing Interpreted Independently: ?See below for details Radiology or Lab testing Results Reviewed: ?See below for details Consults: ?See below for details Independent Historians/External Chart Reviews: ?See below for details Social Determinants of Health Impacting MDM/Planning: ?See below for details Lab Data 09/08/25 14:42 09/08/25 14:42 Labs: Lab Results 09/08/25 Range/Units 14:42 WBC 9.7 (4.8-10.8) X10*3/uL RBC 4.16 L (4.20-5.50) X10*6/uL Hgb 12.0 (12.0-16.0) g/dl Hct 36.8 L (37.0-47.0) % MCV 88.5 (80.0-98.0) fL MCH 28.8 (27.0-33.0) pg MCHC 32.6 (31.0-35.0) g/dl RDW 15.6 (11.0-16.0) % Plt Count 301 (160-400) X10*3/uL MPV 8.4 L (9.4-12.3) fL Immature Gran % (Auto) 0.4 (0.0-0.4) % Neut % (Auto) 77.3 H (45-73) % Lymph % (Auto) 16.8 L (20-40) % [place] % (Auto) 4.7 (2-11) % Eos % (Auto) 0.4 (0-4) % Baso % (Auto) 0.4 (0-2) % Lymph # (Auto) 1.6 (1.2-4.9) X10*3/uL [place] # (Auto) 0.5 (0.1-1.2) X10*3/uL Eos # (Auto) 0.0 (0.0-0.4) X10*3/uL Baso # (Auto) 0.0 (0.0-0.2) X10*3/uL Abs Immat Gran (auto) 0.04 H (0.00-0.03) X10*3/uL Absolute Neuts (auto) 7.5 (2.0-8.3) x10*3/uL Absolute Nucleated RBC 0.000 (0.0-0.012) X10*3/uL Nucleated RBC % (auto) 0.0 (0.0-0.2) /100WBC ESR 68 H (0-20) MM/HR Sodium 142 (135-145) mmol/L Potassium 3.9 (3.3-5.1) mmol/L Chloride 108 (96-108) mmol/L Carbon Dioxide 22 (22-29) mmol/L Anion Gap 16 (12-20) BUN 14 (9-16) mg/dL Creatinine 0.75 (0.5-1.4) mg/dL Estim Creat Clear Calc 90.1 Estimated GFR > 60 Random Glucose 133 H (60-115) mg/dL Calcium 10.7 H (8.4-10.2) mg/dL Total Bilirubin 0.5 (0.0-1.0) mg/dL AST 17 (5-31) U/L ALT 8 (0-31) U/L Alkaline Phosphatase 113 (39-117) U/L C-Reactive Protein 5.23 H (< or = 0.50) mg/dL Total Protein 7.8 (6.5-8.0) g/dL Albumin 3.9 (3.5-5.0) g/dL Discharge Plan Discharge Clinical Impression: Back pain Patient Disposition: Home, Self-Care Instructions: Chronic Back Pain (DC) Additional Instructions: Call your infectious disease doctor your primary doctor and neurosurgeon. We gave you a brief course of analgesia but Prescriptions: New hydromorphone [Dilaudid] 2 mg tablet 2 mg PO Q6H PRN (Reason: pain) Qty: 10 0RF Rx Instructions: Partial Fill upon patient request. No Action diclofenac sodium 75 mg tablet,delayed release (DR/EC) 75 mg PO BID 90 Days Qty: 180 2RF losartan 50 mg tablet 50 mg PO DAILY Qty: 90 5RF montelukast 10 mg tablet 10 mg PO DAILY 90 Days Qty: 90 8RF (DME) rollator walker with seat See Rx Instructions .Route .MEDSUPPLY Qty: 1 0RF Rx Instructions: As directed clonidine HCl 0.3 mg tablet 0.3 mg PO BEDTIME Qty: 90 2RF cyanocobalamin (vitamin B-12) [Vitamin B-12] 1,000 mcg tablet 1,000 mcg PO DAILY Qty: 90 1RF tizanidine 2 mg tablet 2 mg PO Q8H 15 Days Qty: 45 3RF atorvastatin 40 mg tablet 40 mg PO DAILY 90 Days Qty: 90 1RF allopurinol 100 mg tablet 100 mg PO DAILY Qty: 30 11RF magnesium oxide 250 mg magnesium tablet 250 mg PO DAILY 90 Days Qty: 90 2RF trazodone 100 mg tablet 400 mg PO BEDTIME 30 Days Qty: 120 6RF omega-3 fatty acids 500 mg Capsule 500 mg PO DAILY baclofen 10 mg tablet 10 mg PO BID PRN (Reason: Muscle Spasm) albuterol sulfate 90 mcg/actuation HFA aerosol inhaler 1 puff INHALATION QID PRN (Reason: Shortness Of Breath Or Wheezing) lidocaine [Lidocaine Pain Relief] 4 % adhesive patch,medicated 1 patch transdermal DAILY PRN (Reason: Pain) Protocol: Apply to: Apply to: left knee anterior pantoprazole 40 mg tablet,delayed release (DR/EC) 40 mg PO DAILY@0630 hydromorphone [Dilaudid] 2 mg tablet 2 mg PO Q6H PRN (Reason: pain (scale score 7-10)) Qty: 28 0RF Rx Instructions: Partial Fill upon patient request. daptomycin 500 mg Recon Soln 500 mg IV Q24H Qty: 36 0RF multivitamin Tablet 1 tab PO DAILY ergotamine-caffeine 1-100 mg tablet 1 tab PO Q30M MDD 6 mg PRN (Reason: migraine headache) 30 Days Qty: 30 7RF Rx Instructions: do not exceed 6 mg per day or 10 mg per wk Print Language: Armenian
[2025-09-08 14:48] LABS: Hematocrit 36.8 % (37.0-47.0); Hemoglobin 12.0 g/dl (12.0-16.0); Imm Gran Abs Auto 0.04 X10*3/uL (0.00-0.03); Imm Gran Pct Auto 0.4 % (0.0-0.4); Lymphocytes Absolute Auto 1.6 X10*3/uL (1.2-4.9); MANUAL DIFF FLAG NO; Mean Corpuscular HGB Conc 32.6 g/dl (31.0-35.0); Mean Corpuscular Hemoglobin 28.8 pg (27.0-33.0); Mean Corpuscular Volume 88.5 fL (80.0-98.0); NRBC Abs Auto 0.000 X10*3/uL (0.0-0.012); NRBC Pct Auto 0.0 /100WBC (0.0-0.2); Platelet Count 301 X10*3/uL (160-400); Red Blood Count 4.16 X10*6/uL (4.20-5.50); White Blood Count 9.7 X10*3/uL (4.8-10.8)
[2025-09-08 15:26] LABS: Erythrocyte Sedimentation Rate 68 MM/HR (0-20)
[2025-09-08 15:39] LABS: Alanine Aminotransferase 8 U/L (0-31); Albumin Level 3.9 g/dL (3.5-5.0); Anion Gap 16 (12-20); Aspartate Amino Transferase 17 U/L (5-31); Blood Urea Nitrogen 14 mg/dL (9-16); Calcium 10.7 mg/dL (8.4-10.2); Carbon Dioxide 22 mmol/L (22-29); Chloride 108 mmol/L (96-108); Creatinine Clr Calc Pharmacy 90.1; Estimated Glomerular Filt Rate > 60; Potassium 3.9 mmol/L (3.3-5.1); Sodium 142 mmol/L (135-145); Total Protein 7.8 g/dL (6.5-8.0)
[2025-09-08 16:01] LABS: Alkaline Phosphatase 113 U/L (39-117)
[2025-09-08] MEDS: iohexoL 350 MG/ML 100 ML INFUS..BTL IV (16:01)
[2025-09-08 16:35] VITALS: BP 102/64; PULSE 67; RESP 17; TEMP 36.4; O2SAT 93
[2025-09-08 17:36] VITALS: BP 102/64; PULSE 67; RESP 17; TEMP 36.4; O2SAT 93
== END 2025-09-08 17:37 | disposition home or self-care (01) ==
PROVIDERS: Physician Assistant Medical; Emergency Provider Emergency Medicine; PCP Physician Assistant
DX: L76.82 Other postprocedural complications of skin and subcutaneous tissue (principal); M46.46 Discitis, unspecified, lumbar region; Z79.899 Other long term (current) drug therapy
CPT/HCPCS: 36415; 72132; 80053; 85025; 85652; 86140; 96374; 99283; 99285; J1171; Q9967

== ENCOUNTER → 2025-09-08 14:36 | Outpatient (BNV) | payer MEDICARE, MEDICAID, SELFPAY | PROVIDERS: Emergency Provider Emergency Medicine; PCP Physician Assistant; Visit Provider Radiology Body Imaging | DX: S33.111A Dislocation of L1/L2 lumbar vertebra, initial encounter (principal); R59.1 Generalized enlarged lymph nodes | CPT/HCPCS: 72132 ==

== ENCOUNTER 2025-09-15 19:06 | Inpatient (IN) | payer MEDICARE, MEDICAID, SELFPAY ==
--- NOTE | 2025-09-15 19:09 | P.EN_ITS ---
Event Note Date of Service: 09/15/25 Event Note: NeuroSurgery (Dr. Parmar) [place] [facility] [place] think [place] need [place], and ok with Abx only, [facility] [place] also doesn't think patient need surgery, but need to monitored for several days, and therefore to be transfered here Time Spent With Patient Time: Total time managing care of this patient today ____ minutes.
--- NOTE | 2025-09-15 19:09 | PM.EVENT ---
Event Note Date of Service: 09/15/25 Event Note: NeuroSurgery (Dr. Parmar) [place] [facility] [place] doesn't think patient need surgery, and ok with Abx only, [facility] [place]sur[place] also doesn't think patient need surgery, but need to monitored for several days, and therefore to be transfered here Time Spent With Patient Time: Total time managing care of this patient today ____ minutes.
[2025-09-15 19:21] VITALS: BMI 33.3
--- NOTE | 2025-09-15 19:33 | PM.IMHP ---
History of Present Illness Date of Service: 09/15/25 Chief Complaint: back pain 54-year-old female with a past medical history of restraint, HLD, anxiety, GERD, gout, HX MRSA infection, HX chronic back pain status post lumbar fusion surgery in March 2025; HX spinal osteomyelitis; presented to the hospital with a chief complaint of back pain. Patient was admitted to the [facility] since last Thursday for back pain. Found to have MRSA bacteremia, osteomyelitis of the spine, phlegmon. Neurosurgery at [facility] suggested transferred to the [facility] monitoring and continuing antibiotics. At the time of my interview patient is alert and awake, answering questions appropriately, reports she continuously have the back pain. Denies numbness and tingling. Reports she is able to walk with the help of a walker. Denies any chest pain or palpitations. Denies any fever chills cough or sputum production. Denies any GI or symptoms. Review of all other systems is negative except mentioned above [facility] Medical History Abdominal pain MRSA (methicillin resistant Staphylococcus aureus) infection Anemia Anxiety MDD (major depressive disorder) Gout GERD (gastroesophageal reflux disease) Ambulates with cane Smoker Hyperuricemia Asthma Obese Osteoarthritis Trigger finger Carpal tunnel syndrome Hyperlipidemia LDL goal <100 Essential hypertension Hyperlipidemia Cellulitis, umbilical Family History Father Diabetes Hypertension Stroke Heart attack, Onset Age: 50 Mother Multiple sclerosis Brother In good health Son In good health Son In good health Other Patient denies medical problems Surgical History History of esophagogastroduodenoscopy (EGD) Hx of colonoscopy History of laparoscopic appendectomy History of foot surgery History of carpal tunnel release H/O: hysterectomy Social History Household Members: Spouse and Children Housing: Apartment Are you a primary child care leader to a significant other at home: No Do you presently have visiting nurse or other home services: Yes ([facility] per pt) Alcohol intake: current Alcohol intake frequency: holidays/special occasions only Alcohol type: beer Patient Tobacco Use Status: Current everyday Tobacco user Tobacco use type: Cigarette Cigarette Packs Per Day: 0.5 Cigarettes Per Day: 7 Years Smoked: 46 Smoked in Last 30 Days: Yes e-Cigarette/Vaping Use: Never Used Patient Interested in Nicotine Replacement: No (pt declined They won't work on me ) Second Hand Smoke Exposure: Yes Have you been hit, kicked, punched, or otherwise hurt by someone within the past year? If so, by whom?: No Do you feel safe in your current relationship?: Yes Is there a partner from a previous relationship who is making you feel unsafe now?: No Are you made to feel afraid or neglected: No Denominational Healthcare Practices: Declined Advance Directives: Yes Advance Directives on File: Yes Advance Directives Date on File: 06/22/25 Do you have a plan to hurt others: No Plan Recently lost weight without trying: No Eating poorly because of decreased appetite: No Nutrition Risks: No Nutritional Risk Patient : No : No Poor oral hygiene: No service: No Current occupational status: disabled Cognitive needs: No Hearing needs: No Vision needs: Yes (glasses) Meds Allergies Allergy/AdvReac Type Severity Reaction Status Date / Time gabapentin Allergy Intermediate Nausea and Verified 09/08/25 14:19 Vomiting morphine (Morphine) Allergy Intermediate VOMITING Verified 09/08/25 14:19 oxycodone (Percocet) Allergy Intermediate Vomiting Verified 09/08/25 14:19 methocarbamol AdvReac Intermediate GI upset Verified 09/08/25 14:19 Active Medications: Current Medications Acetaminophen (Acetaminophen 325 Mg Tablet) 650 mg PO Q6H PRN PRN Reason: Pain, Mild 1-3,fever,headache Acetaminophen (Acetaminophen 325 Mg Tablet) 650 mg PO Q6H PRN PRN Reason: Pain, Mild 1-3,fever,headache Calcium Carbonate (Calcium Carbonate 750 Mg Tab.Chew) 750 mg PO Q4H PRN PRN Reason: Heartburn Calcium Carbonate (Calcium Carbonate 750 Mg Tab.Chew) 750 mg PO Q4H PRN PRN Reason: Heartburn Docusate Sodium (Docusate Sodium 100 Mg Capsule) 100 mg PO BID JAMES Heparin Sodium (Porcine) (Heparin Sodium,Porcine 5,000 Unit/Ml Vial) 5,000 unit SUBCUT Q8H JAMES Magnesium Hydroxide (Milk Of Magnesia 30 Ml Oral.Susp) 30 ml PO DAILY PRN PRN Reason: Constipation Magnesium Hydroxide (Milk Of Magnesia 30 Ml Oral.Susp) 30 ml PO DAILY PRN PRN Reason: Constipation Melatonin (Melatonin 3 Mg Tablet) 6 mg PO BEDTIME PRN PRN Reason: Insomnia Melatonin (Melatonin 3 Mg Tablet) 6 mg PO BEDTIME PRN PRN Reason: Insomnia Polyethylene Glycol (Polyethylene Glycol 3350 17 Gm Powd.Pack) 17 gm PO DAILY PRN PRN Reason: Constipation Sodium Chloride (0.9 % Sodium Chloride Flush 3 Ml Syringe) 3 ml IVFLUSH QSHIFT JAMES Sodium Chloride (0.9 % Sodium Chloride Flush 3 Ml Syringe) 3 ml IVFLUSH QSHIFT JAMES Home Medications ?Medication ?Instructions ?Recorded ?Confirmed ?Last Taken ?Type multivitamin 1 tab PO DAILY 07/31/22 08/16/25 08/16/25 History omega-3 fatty acids 500 mg capsule 500 mg PO DAILY 03/01/25 08/16/25 08/16/25 History baclofen 10 mg tablet 10 mg PO BID PRN Muscle Spasm 04/08/25 08/16/25 06/14/25 History albuterol sulfate 90 mcg/actuation 1 puff inhalation QID PRN 06/14/25 08/16/25 Unknown History aerosol inhaler Shortness Of Breath Or Wheezing lidocaine 4 % topical patch 1 patch transdermal DAILY PRN Pain 08/16/25 08/16/25 Unknown History (Lidocaine Pain Relief) pantoprazole 40 mg tablet,delayed 40 mg PO DAILY@0630 08/16/25 08/16/25 08/16/25 History release Physical Exam Vital Signs and Narrative: Gen: Appears be in no acute distress HEENT: NCAT, Moist mucosa. Pulmonary: Vesicular breath sounds, fair air entry CVS: Normal S1-S2 Abdomen: BS+, Soft, Nontender Extremities: Warm well perfused; tender on the low back paraspinal area; no skin changes noted. Neuro: Alert and awake. Oriented x3. Non focal. Assessment and Plan (1) Osteomyelitis of lumbar spine: Status: Acute Plan 54-year-old female with a past medical history of restraint, HLD, anxiety, GERD, gout, HX MRSA infection, HX chronic back pain status post lumbar fusion surgery in March 2025; HX spinal osteomyelitis; presented to the hospital with a chief complaint of back pain. Found to have lumbar spinal osteomyelitis and bacteremia. Transfer from the [facility] where she stayed for past 5 days evaluated by Neurosurgery. Osteomyelitis of the lumbar spine: Paraspinal phlegmon: MRSA bacteremia: On blood cultures from 09/10/2025 Exam nonfocal Patient was seen by Neurosurgery at [facility]-suggested transferred to the [facility] where patient was seen by Dr. Leon from Neurosurgery. Continue IV vancomycin and IV cefepime (patient was on daptomycin but change to vancomycin back again due to increased daptomycin johny) Will repeat blood cultures Repeat Echocardiogram For all other chronic conditions, continue home medications DVT prophylaxis: Lovenox Code status: Full code Echo: 09/15/2025: There is basal septal thickening with sigmoid septum configuration and otherwise normal left ventricular wall thickness Normal left ventricular size and systolic function Left ventricular ejection fraction 55% No regional wall motion abnormality Abnormal mitral annular TDI velocities suggest impaired LV relaxation Right ventricle is normal in size and function Atria is normal in size No significant valvular abnormalities IVC is normal with normal inspiratory collapse consistent with a right atrial pressure of expectantly 3 mm Hg Prominent epicardial adipose tissue There is no significant pericardial effusion Ascending aorta and aortic root are normal in size No overt evidence of valvular vegetation on this average quality study Jono recommended if there is significant clinical suspicion for endocarditis Quality Stroke Does the patient have a stroke diagnosis?: No VTE Prior VTE?: No VTE Risk Level:: Medical - moderate - high VTE Device Contraindication: N/A - Device Ordered VTE Drug Contraindication: N/A - Med Ordered
[2025-09-15 19:36] VITALS: BP 134/79; PULSE 73; RESP 18; TEMP 36.9; O2SAT 96
--- NOTE | 2025-09-15 20:31 | PHA.MEDREC ---
Pharmacy Consult ? Medication Reconciliation Pharmacy has completed the medication reconciliation. Spoke to patient who had a written home med list with her to confirm medication list. Per patient, she takes baclofen 10 mg bid on scheduled, hydromorphone 2 mg q4h prn, and trazodone 400 mg at bedtime.
[2025-09-15] MEDS: cefEPime HCl/D5W 2 GM/50 ML PIGGYBACK IV (20:34)
[2025-09-15 21:04] VITALS: RESP 16
--- NOTE | 2025-09-15 21:51 | HO.SKINPHOTO ---
Location: Bilateral buttocks, present on direct admit. Dr. Martinez notified. Wound care consult placed
[2025-09-16] MEDS: cefEPime HCl/D5W 2 GM/50 ML PIGGYBACK IV ×3 (03:37→19:24)
[2025-09-16 03:39] VITALS: BP 140/80; PULSE 96; RESP 18; TEMP 36.3; O2SAT 95
[2025-09-16 06:06] LABS: MANUAL DIFF FLAG NO
[2025-09-16 06:25] LABS: Alanine Aminotransferase < 6 U/L (0-31); Albumin Level 3.3 g/dL (3.5-5.0); Alkaline Phosphatase 91 U/L (39-117); Anion Gap 12 (12-20); Aspartate Amino Transferase 19 U/L (5-31); Blood Urea Nitrogen 10 mg/dL (9-16); Calcium 9.9 mg/dL (8.4-10.2); Carbon Dioxide 26 mmol/L (22-29); Chloride 107 mmol/L (96-108); Creatinine Clr Calc Pharmacy 107.4; Estimated Glomerular Filt Rate > 60; Potassium 3.6 mmol/L (3.3-5.1); Sodium 141 mmol/L (135-145); Total Protein 6.8 g/dL (6.5-8.0)
[2025-09-16 06:30] LABS: Hematocrit 33.6 % (37.0-47.0); Hemoglobin 10.8 g/dl (12.0-16.0); Imm Gran Abs Auto 0.04 X10*3/uL (0.00-0.03); Imm Gran Pct Auto 0.6 % (0.0-0.4); Lymphocytes Absolute Auto 1.4 X10*3/uL (1.2-4.9); Mean Corpuscular HGB Conc 32.1 g/dl (31.0-35.0); Mean Corpuscular Hemoglobin 28.8 pg (27.0-33.0); Mean Corpuscular Volume 89.6 fL (80.0-98.0); NRBC Abs Auto 0.000 X10*3/uL (0.0-0.012); NRBC Pct Auto 0.0 /100WBC (0.0-0.2); Platelet Count 291 X10*3/uL (160-400); Red Blood Count 3.75 X10*6/uL (4.20-5.50); White Blood Count 6.7 X10*3/uL (4.8-10.8)
[2025-09-16 07:05] VITALS: BP 145/71; PULSE 80; RESP 18; TEMP 36; O2SAT 95
--- NOTE | 2025-09-16 08:07 | HE.PHANOTE ---
re [place] Patient was receiving vancomycin from [facility]. Random level came back at 14.6. Will continue with 1250 mg Q12H and get another level for 09/17/25 @0800 to ensure safety vs efficacy.
[2025-09-16] MEDS: Lidocaine 4 % Patch ADH..PATCH 1 PATCH TRANSDERMA (08:33)
[2025-09-16] MEDS: 0.9 % Sodium Chloride Flush 3 ML SYRINGE IVFLUSH ×3 (08:38→19:24)
--- NOTE | 2025-09-16 08:43 | HO.PM.IMPN ---
Subjective Subjective Date of Service: 09/16/25 Interval History: f/u on MRSA bacteremia, paraspinal phlegmon no fever, pain is controlled Physical Exam Vital Signs: Vital Signs: Last Vital Signs Temp 96.8 F 09/16/25 07:05 Pulse 80 09/16/25 07:05 Resp 18 09/16/25 07:05 BP 145/71 H 09/16/25 07:05 Pulse Ox 95 09/16/25 07:05 O2 Del Method Room Air 09/16/25 07:05 BMI result Body Mass Index 33.3 General: AO X 3, no acute distress Resp: CTA bilateral CVS: S1,S2,RRR GI: +BS, NT, no distention Skin: No rash Neuro: motor grossly intact Psych: appropriate affect Objective Data Active Medications Acetaminophen (Acetaminophen 325 Mg Tablet) 650 mg PO Q6H PRN PRN Reason: Pain, Mild 1-3,fever,headache Albuterol/Ipratropium (Albuterol/Iprat 2.5/0.5mg 3 Ml Ampul.Neb) 3 ml INHALE Q4H PRN PRN Reason: Shortness of Breath/Wheezing Atorvastatin Calcium (Atorvastatin Calcium 40 Mg Tablet) 40 mg PO DAILY [facility] Last Admin: 09/16/25 08:32 Dose: 40 mg Documented By: BEL Baclofen (Baclofen 10 Mg Tablet) 10 mg PO BID [facility] Last Admin: 09/16/25 08:32 Dose: 10 mg Documented By: BEL Calcium Carbonate (Calcium Carbonate 750 Mg Tab.Chew) 750 mg PO Q4H PRN PRN Reason: Heartburn Clonidine HCl (Clonidine Hcl 0.1 Mg Tablet) 0.3 mg PO BEDTIME [facility]; Protocol Docusate Sodium (Docusate Sodium 100 Mg Capsule) 100 mg PO BID [facility] Last Admin: 09/16/25 08:32 Dose: 100 mg Documented By: BEL Gabapentin (Gabapentin 300 Mg Capsule) 300 mg PO TID [facility] Last Admin: 09/16/25 08:33 Dose: Not Given Documented By: BEL Non-Admin Reason: Patient Refused Heparin Sodium (Porcine) (Heparin Sodium,Porcine 5,000 Unit/Ml Vial) 5,000 unit SUBCUT Q8H [facility] Last Admin: 09/16/25 03:36 Dose: 5,000 unit Documented By: MIR Hydromorphone HCl (Hydromorphone Hcl 1 Mg/Ml Syringe) 0.5 mg IVPUSH Q4H PRN; Protocol PRN Reason: Pain, Severe (Pain Scale 7-10) Last Admin: 09/16/25 06:01 Dose: 0.5 mg Documented By: MIR Cefepime HCl (Maxipime) 2 gm in 50 mls @ 100 mls/hr IV Q8H [facility] Last Infusion: 09/16/25 04:13 Dose: Infused Documented By: MIR Vancomycin HCl 1,250 mg/ (Sodium Chloride) 250 mls @ 166.667 mls/hr IV Q12H [facility] Last Infusion: 09/15/25 23:15 Dose: Infused Documented By: MIR Lidocaine (Lidocaine 4 % Patch Adh..Patch) 1 patch TRANSDERMA DAILY [facility]; Protocol Last Admin: 09/16/25 08:33 Dose: 1 patch Documented By: BEL Magnesium Hydroxide (Milk Of Magnesia 30 Ml Oral.Susp) 30 ml PO DAILY PRN PRN Reason: Constipation Magnesium Oxide (Magnesium Oxide 400 Mg Tablet) 200 mg PO DAILY [facility] Last Admin: 09/16/25 08:33 Dose: 200 mg Documented By: BEL Melatonin (Melatonin 3 Mg Tablet) 6 mg PO BEDTIME PRN PRN Reason: Insomnia Pharmacy Consult (Consult Rx Vancomycin Dosing) 1 each MISCELLANE DAILY PRN PRN Reason: Consult order Polyethylene Glycol (Polyethylene Glycol 3350 17 Gm Powd.Pack) 17 gm PO DAILY PRN PRN Reason: Constipation Senna (Sennosides 8.6 Mg Tablet) 17.2 mg PO BEDTIME [facility] Last Admin: 09/15/25 20:32 Dose: 17.2 mg Documented By: MIR Sodium Chloride (0.9 % Sodium Chloride Flush 3 Ml Syringe) 3 ml IVFLUSH QSHIFT [facility] Last Admin: 09/16/25 08:38 Dose: 3 ml Documented By: BEL Trazodone HCl (Trazodone Hcl 100 Mg Tablet) 400 mg PO BEDTIME [facility] Last Admin: 09/15/25 22:56 Dose: 400 mg Documented By: MIR Labs 09/16/25 05:37 09/17/25 07:55 Labs: Laboratory Results - last 24 hr 09/15/25 09/15/25 09/16/25 20:11 Unknown 05:37 MCV 89.6 MCH 28.8 MCHC 32.1 RDW 14.2 Plt Count 291 MPV 8.6 L Immature Gran % (Auto) 0.6 H Neut % (Auto) 69.5 Lymph % (Auto) 20.7 [place] % (Auto) 6.4 Eos % (Auto) 2.2 Baso % (Auto) 0.6 Lymph # (Auto) 1.4 [place] # (Auto) 0.4 Eos # (Auto) 0.2 Baso # (Auto) 0.0 Abs Immat Gran (auto) 0.04 H Absolute Neuts (auto) 4.7 Absolute Nucleated RBC 0.000 Nucleated RBC % (auto) 0.0 Hold Purple Top SEE NOTE Anion Gap 12 Estim Creat Clear Calc 107.4 Estimated GFR > 60 Random Glucose 86 Calcium 9.9 D Total Bilirubin 0.1 AST 19 ALT < 6 Alkaline Phosphatase 91 Total Protein 6.8 Albumin 3.3 L Random Vancomycin 14.6 L Assessment and Plan (1) MRSA bacteremia: Status: Acute Plan 54-year-old female with a past medical history of restraint, HLD, anxiety, GERD, gout, HX MRSA infection, HX chronic back pain status post L3-4, L4-5 spinal stenosis/lateral recess stenosis/neural foraminal stenosis, s/p right L3-4, L4-5 Laminotomy, Partial facetectomy and L5 foraminotomy 03/14/25, post op complicated by sepsis due to MRSA bacteremia due to diskitis/osteomyelitis L1-L4, seroma vs abscess, iliopsoas abscess completed Vanco and Zosyn in June 2025. Readmitted Last month for concern of recurrent infection, blood culture were negative but was prescribed [facility] Abx with Daptomycin and was to complete course on sep 27 for 6 weeks. Patient was admitted at [facility] and found to have MRSA bacteremia again and MRI showing paraspinal abscess and has been treated with Vanco and Cefepim, evaluated by Neurosurgery at [facility] with no indication for surgery, Dr. Segundo has also reviewed MRI from [facility] and doesn't believe surgery is indicated at this time. Osteomyelitis (OM) of the lumbar spine: Paraspinal phlegmon: MRSA bacteremia from blood cultures of 09/10/2025 Exam non-focal neuro deficit -continue Vanco and Cefepime -consult ID here -repeat blood cultures here pending -Dr. Reddy made aware HTN resume Losartan HLD statin Type 2 diabetes, recent A1C <6 GERD - PPI For all other chronic conditions, continue home medications DVT prophylaxis: Heparin Code status: Full code Quality Stroke Does the patient have a stroke diagnosis?: No VTE Prior VTE?: No VTE Risk Level:: Medical - moderate - high VTE Device Contraindication: N/A - Device Ordered VTE Drug Contraindication: N/A - Med Ordered
[2025-09-16 09:41] VITALS: BP 117/72
--- NOTE | 2025-09-16 12:54 | MHC.CM.PN ---
Addendum entered by Nissa Kitchen 09/17/25 15:37: PT IS AWARE SHE WILL NEED IV ABX SHE STATES SHE CAN MANAGE THEM AT HOME AND HAS HELP SHE STATES SHE IS NOT GOING TO A SNF Original Note: PT REPORTS SHE LIVES WITH HER AND SON AND IS INDEPENDENT WITH CARE SHE IS ACTIVE WITH [facility] FOR WOUND CARE SERVICES AND IV ABX SHE IS ALSO ACTIVE WITH [facility] HI PT USES A ROLLATOR FOR DME SHE SAYS SHE HAS A HCP NAMING HER HER AGENT, COPY REQUESTED PCP: HAYLEY CROCKETT IMM DELIVERED DCP: [facility] FAMILY TO TRANSPORT
[2025-09-16 15:34] VITALS: BP 138/78; PULSE 84; RESP 18; TEMP 37; O2SAT 96
[2025-09-16] MEDS: Diclofenac Sodium Delayed Rel 75 MG TABLET.DR PO (16:37)
[2025-09-16 19:12] VITALS: BP 112/69; PULSE 80; RESP 18; TEMP 36.8; O2SAT 96
--- NOTE | 2025-09-16 23:20 | W.PM.IDCN ---
History of Present Illness Data of Consult Service Date: 09/16/25 Requesting physician: Cecilio Melvin Primary Care Provider: Festus Lang PA-C HPI Reason for consult: disciitis-osteomyelitis L1,L2 She describes severe 10/10 lumbar spine pain worse than ever when she sat down to eat Thanksgiving dinner. She felt generally unwell and presented to [facility]. Her MRI from 09/10 there showed disciitis-osteomyelitis at L1-L2 and L2-3 with surrounding paraspinal phlegmon. There is circumferential epidural enhancement phlegmon or granulation tissue. There is no discrete epidural or paraspinal abscess. There is spinal stenosis. Blood cultures drawn on arrival showed MRSA,Daptomycin sensitivities pending. Her PICC line was removed. ESR is elevated at 83. Review of Systems Review of Systems: Yes all other systems are reviewed and are negative PMFSH Past Medical History Medical History Class 1 obesity Abdominal pain MRSA (methicillin resistant Staphylococcus aureus) infection Anemia Anxiety MDD (major depressive disorder) Gout GERD (gastroesophageal reflux disease) Ambulates with cane Smoker Hyperuricemia Asthma Obese Osteoarthritis Trigger finger Carpal tunnel syndrome Hyperlipidemia LDL goal <100 Essential hypertension Hyperlipidemia Cellulitis, umbilical Family History Family History Father Diabetes Hypertension Stroke Heart attack, Onset Age: 50 Mother Multiple sclerosis Brother In good health Son In good health Son In good health Other Patient denies medical problems Family history: reviewed and not pertinent Surgical History Surgical History History of esophagogastroduodenoscopy (EGD) Hx of colonoscopy History of laparoscopic appendectomy History of foot surgery History of carpal tunnel release H/O: hysterectomy Social History Social History Household Members: Spouse and Children Housing: Apartment Are you a primary family day care provider to a significant other at home: No Do you presently have visiting nurse or other home services: Yes (Karen YANGA per pt) Alcohol intake: current Alcohol intake frequency: holidays/special occasions only Alcohol type: beer Patient Tobacco Use Status: Current everyday Tobacco user Tobacco use type: Cigarette Cigarette Packs Per Day: 0.5 Cigarettes Per Day: 7 Years Smoked: 46 Smoked in Last 30 Days: Yes e-Cigarette/Vaping Use: Never Used Patient Interested in Nicotine Replacement: No (pt declined They won't work on me ) Second Hand Smoke Exposure: Yes Currently Displaying Signs/Symptoms of Drug Intoxication Withdrawal: No Have you been hit, kicked, punched, or otherwise hurt by someone within the past year? If so, by whom?: No Do you feel safe in your current relationship?: Yes Is there a partner from a previous relationship who is making you feel unsafe now?: No Are you made to feel afraid or neglected: No [facility] Practices: Declined Advance Directives: Yes Advance Directives on File: Yes Advance Directives Date on File: 06/22/25 Do you have a plan to hurt others: No Plan Recently lost weight without trying: No Eating poorly because of decreased appetite: No Nutrition Risks: No Nutritional Risk Patient : No : No Poor oral hygiene: No service: No Current occupational status: disabled Cognitive needs: No Hearing needs: No Vision needs: Yes (glasses) Meds Allergies Allergy/AdvReac Type Severity Reaction Status Date / Time gabapentin Allergy Intermediate Nausea and Verified 09/08/25 14:19 Vomiting morphine (Morphine) Allergy Intermediate VOMITING Verified 09/08/25 14:19 oxycodone (Percocet) Allergy Intermediate Vomiting Verified 09/08/25 14:19 methocarbamol AdvReac Intermediate GI upset Verified 09/08/25 14:19 Active Medications: Current Medications Acetaminophen (Acetaminophen 325 Mg Tablet) 650 mg PO Q6H PRN PRN Reason: Pain, Mild 1-3,fever,headache Albuterol Sulfate (Albuterol Sulfate 90 Mcg 8 Gm Inhaler) 1 puff INHALE QID PRN PRN Reason: Shortness Of Breath Or Wheezing Albuterol/Ipratropium (Albuterol/Iprat 2.5/0.5mg 3 Ml Ampul.Neb) 3 ml INHALE Q4H PRN PRN Reason: Shortness of Breath/Wheezing Allopurinol (Allopurinol 100 Mg Tablet) 100 mg PO DAILY [facility] Last Admin: 09/16/25 09:39 Dose: 100 mg Atorvastatin Calcium (Atorvastatin Calcium 40 Mg Tablet) 40 mg PO DAILY [facility] Last Admin: 09/16/25 08:32 Dose: 40 mg Baclofen (Baclofen 10 Mg Tablet) 10 mg PO BID [facility] Last Admin: 09/16/25 21:19 Dose: 10 mg Calcium Carbonate (Calcium Carbonate 750 Mg Tab.Chew) 750 mg PO Q4H PRN PRN Reason: Heartburn Last Admin: 09/16/25 14:36 Dose: 750 mg Clonidine HCl (Clonidine Hcl 0.1 Mg Tablet) 0.3 mg PO BEDTIME [facility]; Protocol Last Admin: 09/16/25 21:19 Dose: 0.3 mg Cyanocobalamin (Cyanocobalamin (Vitamin B-12) 1,000 Mcg Tablet) 1,000 mcg PO DAILY [facility] Last Admin: 09/16/25 09:39 Dose: 1,000 mcg Diclofenac Sodium (Diclofenac Sodium Delayed Rel 75 Mg Tablet.Dr) 75 mg PO BIDWM [facility] Last Admin: 09/16/25 16:37 Dose: 75 mg Docusate Sodium (Docusate Sodium 100 Mg Capsule) 100 mg PO BID [facility] Last Admin: 09/16/25 21:19 Dose: 100 mg Heparin Sodium (Porcine) (Heparin Sodium,Porcine 5,000 Unit/Ml Vial) 5,000 unit SUBCUT Q8H [facility] Last Admin: 09/16/25 19:23 Dose: 5,000 unit Hydromorphone HCl (Hydromorphone Hcl 1 Mg/Ml Syringe) 0.5 mg IVPUSH Q4H PRN; Protocol PRN Reason: Pain, Severe (Pain Scale 7-10) Last Admin: 09/16/25 19:24 Dose: 0.5 mg Hydromorphone HCl (Hydromorphone Hcl 2 Mg Tablet) 2 mg PO Q4H PRN PRN Reason: Pain, Moderate(Pain Scale 4-6) Last Admin: 09/16/25 12:50 Dose: 2 mg Cefepime HCl (Maxipime) 2 gm in 50 mls @ 100 mls/hr IV Q8H [facility] Last Infusion: 09/16/25 20:15 Dose: Infused Vancomycin HCl 1,250 mg/ (Sodium Chloride) 250 mls @ 166.667 mls/hr IV Q12H [facility] Last Infusion: 09/16/25 22:51 Dose: Infused Lidocaine (Lidocaine 4 % Patch Adh..Patch) 1 patch TRANSDERMA DAILY [facility]; Protocol Last Admin: 09/16/25 08:33 Dose: 1 patch Losartan Potassium (Losartan Potassium 50 Mg Tablet) 50 mg PO DAILY [facility]; Protocol Last Admin: 09/16/25 09:41 Dose: 50 mg Magnesium Hydroxide (Milk Of Magnesia 30 Ml Oral.Susp) 30 ml PO DAILY PRN PRN Reason: Constipation Magnesium Oxide (Magnesium Oxide 400 Mg Tablet) 200 mg PO DAILY [facility] Last Admin: 09/16/25 08:33 Dose: 200 mg Melatonin (Melatonin 3 Mg Tablet) 6 mg PO BEDTIME PRN PRN Reason: Insomnia Montelukast Sodium (Montelukast Sodium 10 Mg Tablet) 10 mg PO BEDTIME [facility] Last Admin: 09/16/25 21:20 Dose: 10 mg Multivitamins/Vitamin C (Multivitamin Tablet) 1 tab PO DAILY [facility] Last Admin: 09/16/25 09:39 Dose: 1 tab Pt Own Med ( Ergotamine-Caffeine 1-100 Mg Tablet) 1 tab PO Q30M PRN PRN Reason: migraine headache Last Admin: 09/16/25 21:19 Dose: 1 tab Pantoprazole Sodium (Pantoprazole Sodium 20 Mg Tablet.) 40 mg PO DAILY@0630 [facility] Pharmacy Consult (Consult Rx Vancomycin Dosing) 1 each MISCELLANE DAILY PRN PRN Reason: Consult order Polyethylene Glycol (Polyethylene Glycol 3350 17 Gm Powd.Pack) 17 gm PO DAILY PRN PRN Reason: Constipation Senna (Sennosides 8.6 Mg Tablet) 17.2 mg PO BEDTIME [facility] Last Admin: 09/16/25 21:19 Dose: 17.2 mg Sodium Chloride (0.9 % Sodium Chloride Flush 3 Ml Syringe) [facility] Last Admin: 09/16/25 19:24 Dose: 3 ml Trazodone HCl (Trazodone Hcl 100 Mg Tablet) 400 mg PO BEDTIME [facility] Last Admin: 09/16/25 21:20 Dose: 400 mg Home Medications ?Medication ?Instructions ?Recorded ?Confirmed ?Last Taken ?Type multivitamin 1 tab PO DAILY 07/31/22 09/15/25 08/16/25 History omega-3 fatty acids 500 mg capsule 1,000 mg PO DAILY 03/01/25 09/15/25 08/16/25 History baclofen 10 mg tablet 10 mg PO BID Muscle Spasm 04/08/25 09/15/25 06/14/25 History albuterol sulfate 90 mcg/actuation 1 puff inhalation QID PRN 06/14/25 09/15/25 Unknown History aerosol inhaler Shortness Of Breath Or Wheezing lidocaine 4 % topical patch 1 patch transdermal DAILY PRN Pain 08/16/25 09/15/25 Unknown History (Lidocaine Pain Relief) pantoprazole 40 mg tablet,delayed 40 mg PO DAILY@0630 08/16/25 09/15/25 08/16/25 History release hydromorphone 2 mg tablet 2 mg PO Q4H PRN pain (scale score 09/15/25 09/15/25 Unknown History (Dilaudid) 7-10) Physical Exam Vital Signs: Vital Signs: Last Vital Signs Temp 98.2 F 09/16/25 19:12 Pulse 80 09/16/25 19:12 Resp 18 09/16/25 19:12 BP 112/69 09/16/25 19:12 Pulse Ox 96 09/16/25 19:12 O2 Del Method Room Air 09/16/25 19:12 BMI result Body Mass Index 33.3 Const: General: cooperative HEENT: Head: Yes normal to inspection Face and sinus: Yes normal facial exam Mouth: Normal oral and palatal mucosa present Teeth and gingiva: dentition normal Eyes: General: appearance normal, both eyes and all related structures Pupils: Equal, round and reactive pupils present Resp: Effort & Inspection: normal respiratory effort Cardio: Rate: regular rate Rhythm: regular rhythm GI: Palpation (GI): Soft to palpation and nontender : General: Yes no CVA tenderness Back/Spine/Pelvis: Back: no CVA tenderness Skin: Other: lower back fistula no draining at this time moves all extremities well Neuro: General: moves all extremities Cranial nerves: Yes Equal, round and reactive pupils present Extrem: General: Yes normal to inspection Psych: Appearance: grossly normal Results Labs 09/16/25 05:37 09/16/25 05:37 Labs: Short CBC 09/16/25 Range/Units 05:37 WBC 6.7 (4.8-10.8) X10*3/uL Hgb 10.8 L (12.0-16.0) g/dl Hct 33.6 L (37.0-47.0) % Plt Count 291 (160-400) X10*3/uL BMP 09/16/25 05:37 Sodium 141 Potassium 3.6 Chloride 107 Carbon Dioxide 26 BUN 10 Creatinine 0.62 Calcium 9.9 D Liver Function 09/16/25 Range/Units 05:37 Total Bilirubin 0.1 (0.0-1.0) mg/dL AST 19 (5-31) U/L ALT < 6 (0-31) U/L Alkaline Phosphatase 91 (39-117) U/L Albumin 3.3 L (3.5-5.0) g/dL Assessment and Plan (1) Osteomyelitis: Status: Acute (2) Osteomyelitis of lumbar spine: Status: Acute (3) MRSA bacteremia: Status: Acute Plan Plan for six weeks Vancomycin 1250 mg IV daily was given at [facility] but can be adjusted (new PICC line in). Plan for six weeks IV Cefepime 2g every 8 hours synergy. I discussed case with Dr Bull and [facility] ID Dr Mayelin Jama and ID GM Nagy and agreed no surgical intervention indicated at this time. I will followup Daptomycin sensitivities although Vancomycin is being used now. On discharge I will follow her up as will Dr Bull who has been evaluating all MRIs.
--- NOTE | 2025-09-16 23:47 | P.EN_ITS ---
Event Note Date of Service: 09/16/25 Event Note: She was transferred to [facility] from [facility] for continuity of care Time Spent With Patient Time: Total time managing care of this patient today ____ minutes.
[2025-09-17 03:37] VITALS: BP 109/62; PULSE 61; RESP 18; TEMP 36.2; O2SAT 94
[2025-09-17] MEDS: cefEPime HCl/D5W 2 GM/50 ML PIGGYBACK IV ×3 (04:58→20:05)
[2025-09-17 07:43] VITALS: BP 119/65; PULSE 58; RESP 18; TEMP 37.1; O2SAT 97
[2025-09-17 08:25] LABS: Creatinine Clr Calc Pharmacy 109.1; Estimated Glomerular Filt Rate > 60
--- NOTE | 2025-09-17 08:38 | P.PNIM_ITS ---
Subjective Subjective Date of Service: 09/17/25 Interval History: f/u on MRSA bacteremia, paraspinal phlegmon no fever, pain is controlled, cultures thus far negative No neuro deficits Physical Exam 2 Vital Signs: Vital Signs: Last Vital Signs Temp 98.7 F 09/17/25 07:43 Pulse 58 09/17/25 07:43 Resp 18 09/17/25 07:43 BP 119/65 09/17/25 07:43 Pulse Ox 97 09/17/25 07:43 O2 Del Method Room Air 09/17/25 07:43 BMI result Body Mass Index 33.3 General: AO X 3, no acute distress Resp: CTA bilateral CVS: S1,S2,RRR GI: +BS, NT, no distention Skin: No rash Neuro: motor grossly intact Psych: appropriate affect Objective Data Active Medications Acetaminophen (Acetaminophen 325 Mg Tablet) 650 mg PO Q6H PRN PRN Reason: Pain, Mild 1-3,fever,headache Albuterol Sulfate (Albuterol Sulfate 90 Mcg 8 Gm Inhaler) 1 puff INHALE QID PRN PRN Reason: Shortness Of Breath Or Wheezing Albuterol/Ipratropium (Albuterol/Iprat 2.5/0.5mg 3 Ml Ampul.Neb) 3 ml INHALE Q4H PRN PRN Reason: Shortness of Breath/Wheezing Allopurinol (Allopurinol 100 Mg Tablet) 100 mg PO DAILY [facility] Last Admin: 09/16/25 09:39 Dose: 100 mg Documented By: BEL Atorvastatin Calcium (Atorvastatin Calcium 40 Mg Tablet) 40 mg PO DAILY [facility] Last Admin: 09/16/25 08:32 Dose: 40 mg Documented By: BEL Baclofen (Baclofen 10 Mg Tablet) 10 mg PO BID [facility] Last Admin: 09/16/25 21:19 Dose: 10 mg Documented By: MIR Calcium Carbonate (Calcium Carbonate 750 Mg Tab.Chew) 750 mg PO Q4H PRN PRN Reason: Heartburn Last Admin: 09/16/25 14:36 Dose: 750 mg Documented By: BEL Clonidine HCl (Clonidine Hcl 0.1 Mg Tablet) 0.3 mg PO BEDTIME [facility]; Protocol Last Admin: 09/16/25 21:19 Dose: 0.3 mg Documented By: MIR Cyanocobalamin (Cyanocobalamin (Vitamin B-12) 1,000 Mcg Tablet) 1,000 mcg PO DAILY [facility] Last Admin: 09/16/25 09:39 Dose: 1,000 mcg Documented By: BEL Diclofenac Sodium (Diclofenac Sodium Delayed Rel 75 Mg Tablet.) 75 mg PO BIDWM [facility] Last Admin: 09/16/25 16:37 Dose: 75 mg Documented By: BEL Docusate Sodium (Docusate Sodium 100 Mg Capsule) 100 mg PO BID [facility] Last Admin: 09/16/25 21:19 Dose: 100 mg Documented By: MIR Heparin Sodium (Porcine) (Heparin Sodium,Porcine 5,000 Unit/Ml Vial) 5,000 unit SUBCUT Q8H [facility] Last Admin: 09/17/25 04:59 Dose: 5,000 unit Documented By: DIXIE Hydromorphone HCl (Hydromorphone Hcl 1 Mg/Ml Syringe) 0.5 mg IVPUSH Q4H PRN; Protocol PRN Reason: Pain, Severe (Pain Scale 7-10) Last Admin: 09/16/25 23:26 Dose: 0.5 mg Documented By: DIXIE Hydromorphone HCl (Hydromorphone Hcl 2 Mg Tablet) 2 mg PO Q4H PRN PRN Reason: Pain, Moderate(Pain Scale 4-6) Last Admin: 09/16/25 12:50 Dose: 2 mg Documented By: BEL Cefepime HCl (Maxipime) 2 gm in 50 mls @ 100 mls/hr IV Q8H [facility] Last Infusion: 09/17/25 05:41 Dose: Infused Documented By: DIXIE Vancomycin HCl 1,250 mg/ (Sodium Chloride) 250 mls @ 166.667 mls/hr IV Q12H [facility] Last Infusion: 09/16/25 22:51 Dose: Infused Documented By: MIR Lidocaine (Lidocaine 4 % Patch Adh..Patch) 1 patch TRANSDERMA DAILY [facility]; Protocol Last Admin: 09/16/25 08:33 Dose: 1 patch Documented By: BEL Losartan Potassium (Losartan Potassium 50 Mg Tablet) 50 mg PO DAILY [facility]; Protocol Last Admin: 09/16/25 09:41 Dose: 50 mg Documented By: BEL Magnesium Hydroxide (Milk Of Magnesia 30 Ml Oral.Susp) 30 ml PO DAILY PRN PRN Reason: Constipation Magnesium Oxide (Magnesium Oxide 400 Mg Tablet) 200 mg PO DAILY [facility] Last Admin: 09/16/25 08:33 Dose: 200 mg Documented By: BEL Melatonin (Melatonin 3 Mg Tablet) 6 mg PO BEDTIME PRN PRN Reason: Insomnia Montelukast Sodium (Montelukast Sodium 10 Mg Tablet) 10 mg PO BEDTIME [facility] Last Admin: 09/16/25 21:20 Dose: 10 mg Documented By: MIR Multivitamins/Vitamin C (Multivitamin Tablet) 1 tab PO DAILY [facility] Last Admin: 09/16/25 09:39 Dose: 1 tab Documented By: BEL Pt Own Med ( Ergotamine-Caffeine 1-100 Mg Tablet) 1 tab PO Q30M PRN PRN Reason: migraine headache Last Admin: 09/16/25 21:19 Dose: 1 tab Documented By: MIR Pantoprazole Sodium (Pantoprazole Sodium 20 Mg Tablet.Dr) 40 mg PO DAILY@0630 [facility] Last Admin: 09/17/25 05:01 Dose: 40 mg Documented By: DIXIE Pharmacy Consult (Consult Rx Vancomycin Dosing) 1 each MISCELLANE DAILY PRN PRN Reason: Consult order Polyethylene Glycol (Polyethylene Glycol 3350 17 Gm Powd.Pack) 17 gm PO DAILY PRN PRN Reason: Constipation Senna (Sennosides 8.6 Mg Tablet) 17.2 mg PO BEDTIME [facility] Last Admin: 09/16/25 21:19 Dose: 17.2 mg Documented By: MIR Sodium Chloride (0.9 % Sodium Chloride Flush 3 Ml Syringe) 3 ml IVFLUSH QSHIFT [facility] Last Admin: 09/16/25 19:24 Dose: 3 ml Documented By: MIR Trazodone HCl (Trazodone Hcl 100 Mg Tablet) 400 mg PO BEDTIME [facility] Last Admin: 09/16/25 21:20 Dose: 400 mg Documented By: MIR Labs 09/16/25 05:37 09/17/25 07:55 Labs: Laboratory Results - last 24 hr 09/17/25 07:55 Hold Purple Top SEE NOTE Estim Creat Clear Calc 109.1 Estimated GFR > 60 Microbiology Microbiology Results: Microbiology 09/15/25 21:10 Blood Culture - Preliminary Blood - Venous No growth after 24 hours. 09/15/25 21:10 Blood Culture - Preliminary Blood - Venous No growth after 24 hours. Assessment and Plan (1) MRSA bacteremia: Status: Acute Plan 54-year-old female with a past medical history of restraint, HLD, anxiety, GERD, gout, HX MRSA infection, HX chronic back pain status post L3-4, L4-5 spinal stenosis/lateral recess stenosis/neural foraminal stenosis, s/p right L3-4, L4-5 Laminotomy, Partial facetectomy and L5 foraminotomy 03/14/25, post op complicated by sepsis due to MRSA bacteremia due to diskitis/osteomyelitis L1-L4, seroma vs abscess, iliopsoas abscess completed Vanco and Zosyn in June 2025. Readmitted Last month for concern of recurrent infection, blood culture were negative but was prescribed retirement Abx with Daptomycin and was to complete course on sep 27 for 6 weeks. Patient was admitted at [facility] and found to have MRSA bacteremia again and MRI showing paraspinal abscess and has been treated with Vanco and Cefepim, evaluated by Neurosurgery at [facility] with no indication for surgery, Dr. Segundo has also reviewed MRI from [facility] and doesn't believe surgery is indicated at this time. Osteomyelitis (OM) of the lumbar spine: Paraspinal phlegmon: MRSA bacteremia from blood cultures of 09/10/2025 no focal neuro deficit -continue Vanco and Cefepime -Seen by ID on 09/16 with the following: Plan for six weeks Vancomycin 1250 mg IV daily was given at [facility] but can be adjusted (new PICC line in). Plan for six weeks IV Cefepime 2g every 8 hours synergy. I discussed case with Dr Bull and [facility] ID Dr Mayelin Jama and ID GM Nagy and agreed no surgical intervention indicated at this time. I will followup Daptomycin sensitivities although Vancomycin is being used now. On discharge I will follow her up as will Dr Bull who has been evaluating all MRIs. -repeat blood cultures here pending -Dr. Reddy made aware Picc line 09/18, if blood cultures negative at 48 hrs HTN continue Losartan HLD statin Type 2 diabetes, recent A1C <6 GERD - PPI For all other chronic conditions, continue home medications DVT prophylaxis: Heparin Code status: Full code Quality Stroke Does the patient have a stroke diagnosis?: No VTE Prior VTE?: No VTE Risk Level:: Medical - moderate - high VTE Device Contraindication: N/A - Device Ordered VTE Drug Contraindication: N/A - Med Ordered
[2025-09-17] MEDS: Lidocaine 4 % Patch ADH..PATCH 1 PATCH TRANSDERMA (08:41)
[2025-09-17] MEDS: Diclofenac Sodium Delayed Rel 75 MG TABLET.DR PO ×2 (08:41→17:22)
[2025-09-17] MEDS: 0.9 % Sodium Chloride Flush 3 ML SYRINGE IVFLUSH ×3 (08:43→20:08)
--- NOTE | 2025-09-17 09:16 | HE.PHANOTE ---
RE [facility] patients level came back this morning at 18.9. will decrease dose from 1250 mg Q12H to 1000 mg Q12H. patient was admit from [facility] who was stable on 1250 mg Q12H. will get another level for tomorrow 09/18 @0800 to ensure safety vs efficacy
[2025-09-17 15:40] VITALS: BP 119/58; PULSE 61; RESP 18; TEMP 36.4; O2SAT 98
[2025-09-17 19:59] VITALS: BP 108/65; PULSE 97; RESP 18; TEMP 36.2; O2SAT 96
[2025-09-17 21:36] VITALS: BP 108/65
[2025-09-18 03:00] VITALS: BP 108/54; PULSE 52; RESP 18; TEMP 36.1; O2SAT 92
[2025-09-18] MEDS: cefEPime HCl/D5W 2 GM/50 ML PIGGYBACK IV ×2 (04:36→13:47)
[2025-09-18 06:41] LABS: Creatinine Clr Calc Pharmacy 104.0; Estimated Glomerular Filt Rate > 60
[2025-09-18 07:35] VITALS: BP 115/69; PULSE 51; RESP 17; TEMP 36.1; O2SAT 95
[2025-09-18] MEDS: Diclofenac Sodium Delayed Rel 75 MG TABLET.DR PO ×2 (08:33→16:23)
[2025-09-18] MEDS: 0.9 % Sodium Chloride Flush 3 ML SYRINGE IVFLUSH ×2 (08:34→16:23)
[2025-09-18] MEDS: Lidocaine 4 % Patch ADH..PATCH 1 PATCH TRANSDERMA (08:34)
--- NOTE | 2025-09-18 08:49 | P.PNIM_ITS ---
Subjective Subjective Date of Service: 09/18/25 Interval History: f/u on MRSA bacteremia, paraspinal phlegmon no fever, pain is controlled, cultures thus far negative No neuro deficits, picc line requested today Physical Exam 2 Vital Signs: Vital Signs: Last Vital Signs Temp 97.0 F 09/18/25 07:35 Pulse 51 09/18/25 07:35 Resp 17 09/18/25 07:35 BP 115/69 09/18/25 07:35 Pulse Ox 95 09/18/25 07:35 O2 Del Method Room Air 09/18/25 07:35 BMI result Body Mass Index 33.3 General: AO X 3, no acute distress Resp: CTA bilateral CVS: S1,S2,RRR GI: +BS, NT, no distention Skin: No rash Neuro: motor grossly intact Psych: appropriate affect Objective Data Active Medications Acetaminophen (Acetaminophen 325 Mg Tablet) 650 mg PO Q6H PRN PRN Reason: Pain, Mild 1-3,fever,headache Albuterol Sulfate (Albuterol Sulfate 90 Mcg 8 Gm Inhaler) 1 puff INHALE QID PRN PRN Reason: Shortness Of Breath Or Wheezing Albuterol/Ipratropium (Albuterol/Iprat 2.5/0.5mg 3 Ml Ampul.Neb) 3 ml INHALE Q4H PRN PRN Reason: Shortness of Breath/Wheezing Allopurinol (Allopurinol 100 Mg Tablet) 100 mg PO DAILY [facility] Last Admin: 09/18/25 08:34 Dose: 100 mg Documented By: FABRICE Atorvastatin Calcium (Atorvastatin Calcium 40 Mg Tablet) 40 mg PO DAILY [facility] Last Admin: 09/18/25 08:34 Dose: 40 mg Documented By: FABRICE Baclofen (Baclofen 10 Mg Tablet) 10 mg PO BID [facility] Last Admin: 09/18/25 08:34 Dose: 10 mg Documented By: FABRICE Calcium Carbonate (Calcium Carbonate 750 Mg Tab.Chew) 750 mg PO Q4H PRN PRN Reason: Heartburn Last Admin: 09/16/25 14:36 Dose: 750 mg Documented By: BEL Clonidine HCl (Clonidine Hcl 0.1 Mg Tablet) 0.3 mg PO BEDTIME [facility]; Protocol Last Admin: 09/17/25 21:36 Dose: 0.3 mg Documented By: OLAF Cyanocobalamin (Cyanocobalamin (Vitamin B-12) 1,000 Mcg Tablet) 1,000 mcg PO DAILY [facility] Last Admin: 09/18/25 08:33 Dose: 1,000 mcg Documented By: FABRICE Diclofenac Sodium (Diclofenac Sodium Delayed Rel 75 Mg Tablet.) 75 mg PO BIDWM [facility] Last Admin: 09/18/25 08:33 Dose: 75 mg Documented By: FABRICE Docusate Sodium (Docusate Sodium 100 Mg Capsule) 100 mg PO BID [facility] Last Admin: 09/18/25 08:33 Dose: 100 mg Documented By: FABRICE Heparin Sodium (Porcine) (Heparin Sodium,Porcine 5,000 Unit/Ml Vial) 5,000 unit SUBCUT Q8H [facility] Last Admin: 09/18/25 04:36 Dose: 5,000 unit Documented By: OLAF Hydromorphone HCl (Hydromorphone Hcl 1 Mg/Ml Syringe) 0.5 mg IVPUSH Q4H PRN; Protocol PRN Reason: Pain, Severe (Pain Scale 7-10) Last Admin: 09/18/25 08:42 Dose: 0.5 mg Documented By: FABRICE Hydromorphone HCl (Hydromorphone Hcl 2 Mg Tablet) 2 mg PO Q4H PRN PRN Reason: Pain, Moderate(Pain Scale 4-6) Last Admin: 09/17/25 21:44 Dose: 2 mg Documented By: OLAF Cefepime HCl (Maxipime) 2 gm in 50 mls @ 100 mls/hr IV Q8H [facility] Last Infusion: 09/18/25 05:06 Dose: Infused Documented By: OLAF Vancomycin HCl 1,000 mg/ (Sodium Chloride) 270 mls @ 270 mls/hr IV Q12H [facility] Last Infusion: 09/17/25 22:39 Dose: Infused Documented By: OLAF Lidocaine (Lidocaine 4 % Patch Adh..Patch) 1 patch TRANSDERMA DAILY [facility]; Protocol Last Admin: 09/18/25 08:34 Dose: 1 patch Documented By: FABRICE Losartan Potassium (Losartan Potassium 50 Mg Tablet) 50 mg PO DAILY [facility]; Protocol Last Admin: 09/18/25 08:33 Dose: 50 mg Documented By: FABRICE Magnesium Hydroxide (Milk Of Magnesia 30 Ml Oral.Susp) 30 ml PO DAILY PRN PRN Reason: Constipation Magnesium Oxide (Magnesium Oxide 400 Mg Tablet) 200 mg PO DAILY [facility] Last Admin: 09/18/25 08:34 Dose: 200 mg Documented By: FABRICE Melatonin (Melatonin 3 Mg Tablet) 6 mg PO BEDTIME PRN PRN Reason: Insomnia Montelukast Sodium (Montelukast Sodium 10 Mg Tablet) 10 mg PO BEDTIME [facility] Last Admin: 09/17/25 21:35 Dose: 10 mg Documented By: OLAF Multivitamins/Vitamin C (Multivitamin Tablet) 1 tab PO DAILY [facility] Last Admin: 09/18/25 08:33 Dose: 1 tab Documented By: FABRICE Pt Own Med ( Ergotamine-Caffeine 1-100 Mg Tablet) 1 tab PO Q30M PRN PRN Reason: migraine headache Last Admin: 09/17/25 23:01 Dose: 1 tab Documented By: OLAF Pantoprazole Sodium (Pantoprazole Sodium 20 Mg Tablet.Dr) 40 mg PO DAILY@0630 [facility] Last Admin: 09/18/25 05:34 Dose: 40 mg Documented By: OLAF Pharmacy Consult (Consult Rx Vancomycin Dosing) 1 each MISCELLANE DAILY PRN PRN Reason: Consult order Polyethylene Glycol (Polyethylene Glycol 3350 17 Gm Powd.Pack) 17 gm PO DAILY PRN PRN Reason: Constipation Senna (Sennosides 8.6 Mg Tablet) 17.2 mg PO BEDTIME [facility] Last Admin: 09/17/25 21:37 Dose: 17.2 mg Documented By: OLAF Sodium Chloride (0.9 % Sodium Chloride Flush 3 Ml Syringe) 3 ml IVFLUSH QSHIFT [facility] Last Admin: 09/18/25 08:34 Dose: 3 ml Documented By: FABRICE Trazodone HCl (Trazodone Hcl 100 Mg Tablet) 400 mg PO BEDTIME [facility] Last Admin: 09/17/25 21:38 Dose: 400 mg Documented By: OLAF Labs 09/16/25 05:37 09/18/25 05:27 Labs: Laboratory Results - last 24 hr 09/18/25 05:27 Hold Purple Top SEE NOTE Estim Creat Clear Calc 104.0 Estimated GFR > 60 Random Vancomycin 20.4 H Microbiology Microbiology Results: Microbiology 09/15/25 21:10 Blood Culture - Preliminary Blood - Venous No growth after 48 hours. 09/15/25 21:10 Blood Culture - Preliminary Blood - Venous No growth after 48 hours. Assessment and Plan (1) MRSA bacteremia: Status: Acute Plan 54-year-old female with a past medical history of restraint, HLD, anxiety, GERD, gout, HX MRSA infection, HX chronic back pain status post L3-4, L4-5 spinal stenosis/lateral recess stenosis/neural foraminal stenosis, s/p right L3-4, L4-5 Laminotomy, Partial facetectomy and L5 foraminotomy 03/14/25, post op complicated by sepsis due to MRSA bacteremia due to diskitis/osteomyelitis L1-L4, seroma vs abscess, iliopsoas abscess completed Vanco and Zosyn in June 2025. Readmitted Last month for concern of recurrent infection, blood culture were negative but was prescribed alf Abx with Daptomycin and was to complete course on sep 27 for 6 weeks. Patient was admitted at [facility] and found to have MRSA bacteremia again and MRI showing paraspinal abscess and has been treated with Vanco and Cefepim, evaluated by Neurosurgery at [facility] with no indication for surgery, Dr. Segundo has also reviewed MRI from [facility] and doesn't believe surgery is indicated at this time. Osteomyelitis (OM) of the lumbar spine: Paraspinal phlegmon MRSA bacteremia from blood cultures of 09/10/2025 no focal neuro deficit -continue Vanco and Cefepime -Seen by ID on 09/16 with the following: Plan for six weeks Vancomycin 1250 mg IV daily was given at [facility] but can be adjusted (new PICC line in). Plan for six weeks IV Cefepime 2g every 8 hours synergy. I discussed case with Dr Bull and [facility] ID Dr Mayelin Jama and ID GM Nagy and agreed no surgical intervention indicated at this time. I will followup Daptomycin sensitivities although Vancomycin is being used now. On discharge I will follow her up as will Dr Bull who has been evaluating all MRIs. -repeat blood cultures here negative over 48 hours -Dr. Reddy made aware Picc line today 09/18 HTN continue Losartan HLD statin Type 2 diabetes, recent A1C <6 GERD - PPI For all other chronic conditions, continue home medications DVT prophylaxis: Heparin Code status: Full code Possible DC later today Quality Stroke Does the patient have a stroke diagnosis?: No VTE Prior VTE?: No VTE Risk Level:: Medical - moderate - high VTE Device Contraindication: N/A - Device Ordered VTE Drug Contraindication: N/A - Med Ordered
--- NOTE | 2025-09-18 09:36 | HO.WOUND ---
Wound Consult: Initial 54 yr old female admitted to [facility] on 09/15/25- See progress notes and H&P for detailed history. Wound consult placed for buttocks. Patient agreeable to assessment and photo documentation. Patient known to wound team on previous admissions for chronic spinal wound s/p surgical dehiscence. Per hospitalist notes, neuro reports no further surgical indications at this time. Spine Etiology: chronic wound s/p surgical dehiscence Wound Bed: unable to visualize wound bed due to small opening - scar tissue visible Drainage / Odor: no active drainage noted Edges: ? rolled Alvaro wound: ? No Induration, Fluctuance or Warmth noted Pain: yes Goals of Treatment: ? durafiber for drainage absorption Coccyx/left buttock Right buttock Etiology: moderate/severe MASD to coccyx/bilateral buttock/perianal - question fungal component however appears improved from previous Wound Bed: largly intact blanchable redness, scattered superficial open areas and epidermal peeling noted - appears improved from previous photo assessment on admission Drainage / Odor: none Edges: ? irregular Alvaro wound: ? No Induration, Fluctuance or Warmth noted Pain: yes Goals of Treatment: ? barrier cream/triad for healing and moisture barrier Recommendations: 1. Turn and Reposition every 2 hours and as needed for patient comfort. Use pillows or wedges to support off loading positions. 2. Off Load all bony prominences with use of pillows and heel boots if needed. Apply Preventative foams where needed. 3. Monitor for incontinence and moisture control, use barrier creams when needed for prevention and treatment. 4. Provide adequate and supplemental nutrition. 5. Order or Continue low air loss mattress. 6. When applicable maintain blood glucose levels per Providers order. Buttocks: Off Load Pressure with Q2 hr turns and use of pillows - Cleanse with PH balance spray or wipes, pat dry. ?Apply thin layer of Triad to wound bed - only pat and dab no scrub and rub when soiling occurs. Reapply thin layer PRN after each episode of incontinence. Back/spine: cleanse with saline, apply skin prep alvaro wound, apply durafiber laid over wound bed, cover with foam, change every other day and PRN Re-consult wound care Nurse for wound deterioration or wound changes.
--- NOTE | 2025-09-18 13:47 | HO.PICC ---
PICC Line Insertion PICC INSERTION Diagnosis: BACTEREMIA Indication:SENIOR LIVING ANTIBX Pertinent Labs: REVIEWED Technique: Following informed consent including risks, benefits and alternatives and using sterile technique including cap and mask, sterile gown, glove and drape, the RIGHT arm was prepped and draped in the usual sterile fashion of full barrier technique with CHG. Following completion of [place] Protocol the skin and soft tissues were anesthetized with 1% Lidocaine plain. Using ultrasound guidance, RIGHT BRACHIAL vein access was obtained. Over an 0.018 wire through peel-away sheath, a 4FR SINGLE LUMEN POWER PICC PASV line was positioned. Catheter length is 43CM internal length, 1CM external length, for a total trimmed length of 44CM. The procedure was performed in 7. Tip verification was performed by Ida Akbar with Sherlock 3CG. Tip located in SVC. Ultrasound was used to document vein patency and for needle entry. A formal ultrasound picture and cardiac rhythm strip was recorded. Vascular Quality Control Checker has released the line for use and it is currently dressed with a StatLock, Tegaderm, and CHG disc. Verification has been performed for blood return and line patency. Arm Circumference: 30CM Equipment: [employer] POWERPICC SOLO CATHETER WITH SHERLOCK 3CG TIP Catheter Type: 4FR SINGLE LUMEN POWER PICC PASV line Lot #: [id number]
--- NOTE | 2025-09-18 14:02 | W.MHC.F2F ---
Service Date Service Date: 09/18/25 Encounter Date of encounter: 09/18/25 Reasons for Services Signs and symptoms assessed: Lumbar spine infection and MRSA bacteremia, chronic back and difficulty walking Reason for penitentiary: medication management, medication treatment and teach disease management Homebound: Leaving the home is medically contraindicated at this time without the asist of a device and/or another person due th the listed conditions above and below. Reason homebound: weakness related to hospital stay and unable to drive Homebound supporting statement: homebound due lumbar spine osteomylitis, pain, difficulty walking from pain, MRSA bacteremia, not driving and therefore needs the assitance of another [id number] Certification: Based on the above findings, I certify that this patient is confined to the home and needs intermittent penitentiary care, physical therapy and/or speech therapy, or continues to need occupational therapy. The patient is under my care, and I have initiated the establishment of the plan of care. The patient will be followed by a physician who will periodically review the plan of care. Time Spent With Patient Time: Total time managing care of this patient today ____ minutes.
--- NOTE | 2025-09-18 14:03 | P.DS_ITS ---
DS: Providers Provider Date of Service: 09/18/25 Date of admission: 09/15/25 19:06 Date of discharge: 09/18/25 Primary care physician: Festus Lang PA-C Consults: 09/15/25 19:28 Consult to Infectious Diseases Routine Consulting Provider: [facility] Reason for consultation: Spinal Osteomyelitis 09/15/25 21:42 Consult to Wound Care Routine Consulting Provider: [facility] Wound Care Management Reason for consultation: bilateral buttocks redness and skin peeling-alvaro area redness Has provider been notified: Yes 09/16/25 07:29 Consult to Neurosurgery Routine Consulting Provider: Juan Diego Bull Reason for consultation: discitis Has provider been notified: No DS: Diagnosis Discharge Diagnosis (1) MRSA bacteremia: Status: Acute DS: Summary Hospital Course Hospital Course: Admission hpi from Dr. Martinez Chief Complaint: back pain 54-year-old female with a past medical history of restraint, HLD, anxiety, GERD, gout, HX MRSA infection, HX chronic back pain status post lumbar fusion surgery in March 2025; HX spinal osteomyelitis; presented to the hospital with a chief complaint of back pain. Patient was admitted to the [facility] since last Thursday for back pain. Found to have MRSA bacteremia, osteomyelitis of the spine, phlegmon. Neurosurgery at [facility] suggested transferred to the [facility] monitoring and continuing antibiotics. At the time of my interview patient is alert and awake, answering questions appropriately, reports she continuously have the back pain. Denies numbness and tingling. Reports she is able to walk with the help of a walker. Denies any chest pain or palpitations. Denies any fever chills cough or sputum production. Denies any GI or symptoms. Hsopital course: 54-year-old female with a past medical history of restraint, HLD, anxiety, GERD, gout, HX MRSA infection, HX chronic back pain status post L3-4, L4-[address] enosis/lateral recess stenosis/neural foraminal stenosis, s/p right L3-4, L4-5 Laminotomy, Partial facetectomy and L5 foraminotomy 03/14/25, post op complicated by sepsis due to MRSA bacteremia due to diskitis/osteomyelitis L1-L4, seroma vs abscess, iliopsoas abscess completed Vanco and Zosyn in June 2025. Readmitted Last month for concern of recurrent infection, blood culture were negative but was prescribed jail Abx with Daptomycin and was to complete course on sep 27 for 6 weeks. Patient was admitted at [facility] and found to have MRSA bacteremia again and MRI showing paraspinal abscess and has been treated with Vanco and Cefepim, evaluated by Neurosurgery at [facility] with no indication for surgery, Dr. Segundo has also reviewed MRI from [facility] and doesn't believe surgery is indicated at this time. Osteomyelitis (OM) of the lumbar spine: Paraspinal phlegmon MRSA bacteremia from blood cultures of 09/10/2025 no focal neuro deficit -continue Vanco and Cefepime -Seen by ID on 09/16 with the following: Plan for six weeks Vancomycin 1250 mg IV daily was given at [facility] but can be adjusted (new PICC line in). Plan for six weeks IV Cefepime 2g every 8 hours synergy. I discussed case with Dr Bull and [facility] ID Dr Mayelin Jama and ID GM Nagy and agreed no surgical intervention indicated at this time. I will followup Daptomycin sensitivities although Vancomycin is being used now. On discharge I will follow her up as will Dr Bull who has been evaluating all MRIs. -repeat blood cultures here negative over 48 hours -Dr. Reddy made aware Picc line today 09/18 HTN continue Losartan HLD statin Type 2 diabetes, recent A1C <6 GERD - PPI For all other chronic conditions, continue h Time Attestation Discharge Coordination Time (in mins): 40 Quality: Safe Use of Opioids Does Pt have an Active Cancer Diagnosis on the Problem List?: No Quality: Stroke Does the patient have a stroke diagnosis?: No Physical Exam Vital Signs: Vital Signs: Last Vital Signs Temp 97.0 F 09/18/25 07:35 Pulse 51 09/18/25 07:35 Resp 17 09/18/25 07:35 BP 115/69 09/18/25 07:35 Pulse Ox 95 09/18/25 07:35 O2 Del Method Room Air 09/18/25 07:35 BMI result Body Mass Index 33.3 DS: Data Data Completed and Pending Completed studies during hospitalization [Text1]: Procedures Insertion of Infusion Device into Superior Vena Cava, Percutaneous Approach (08/16/25) Ultrasonography of Heart with Aorta, Transesophageal (04/08/25) Ultrasonography of Superior Vena Cava, Guidance (08/16/25) Labs on day of discharge: Laboratory Results - last 24 hr 09/18/25 05:27 Hold Purple Top SEE NOTE Creatinine 0.64 Estim Creat Clear Calc 104.0 Estimated GFR > 60 Random Vancomycin 20.4 H Preliminary micro results at discharge 09/15/25 21:10 Blood Culture - Preliminary Blood - Venous No growth after 48 hours. 09/15/25 21:10 Blood Culture - Preliminary Blood - Venous No growth after 48 hours. Discharge Plan Discharge Anticipated Discharge Date/Time: 09/18/25 13:55 Patient Disposition: Home Health Service Discharge Diagnosis: MRSA bacteremia, lumbar spine osteomylitis Referrals: [facility] [Other] - 1 Week Referral Note: HOME INFUSION FOR MEDICATION/IV SUPPLIES [facility] [Outside] - 1 Week Referral Note: RESUMPTION OF HOME SERVICES- A NURSE WILL CALL YOU TO SET UP RESUMPTION VISIT [facility] [Outside] - 1 Week Festus Lang PA-C [Primary Care Provider, Internal Medicine] - 1 Week Zayda Ansari MD [Physician, Infectious Disease] - 1 Week Juan Diego Bull MD, PhD [Physician, Neuro Spine] - 1 Week Discharge Medications: New cefepime in dextrose 5 % 2 gram/50 mL Piggyback 2 g IV Q8H 35 Days Qty: 105 0RF vancomycin in 0.9 % sodium chl 1 gram/200 mL piggyback 1 g IV Q12H 35 Days Continued losartan 50 mg tablet 50 mg PO DAILY Qty: 90 5RF montelukast 10 mg tablet 10 mg PO DAILY 90 Days Qty: 90 8RF (DME) rollator walker with seat See Rx Instructions .Route .MEDSUPPLY Qty: 1 0RF Rx Instructions: As directed clonidine HCl 0.3 mg tablet 0.3 mg PO BEDTIME Qty: 90 2RF cyanocobalamin (vitamin B-12) [Vitamin B-12] 1,000 mcg tablet 1,000 mcg PO DAILY Qty: 90 1RF atorvastatin 40 mg tablet 40 mg PO DAILY 90 Days Qty: 90 1RF allopurinol 100 mg tablet 100 mg PO DAILY Qty: 30 11RF magnesium oxide 250 mg magnesium tablet 250 mg PO DAILY 90 Days Qty: 90 2RF trazodone 100 mg tablet 400 mg PO BEDTIME 30 Days Qty: 120 6RF omega-3 fatty acids 500 mg Capsule 1,000 mg PO DAILY baclofen 10 mg tablet 10 mg PO BID albuterol sulfate 90 mcg/actuation HFA aerosol inhaler 1 puff INHALATION QID PRN (Reason: Shortness Of Breath Or Wheezing) lidocaine [Lidocaine Pain Relief] 4 % adhesive patch,medicated 1 patch transdermal DAILY PRN (Reason: Pain) Protocol: Apply to: Apply to: left knee anterior pantoprazole 40 mg tablet,delayed release (DR/EC) 40 mg PO DAILY@0630 multivitamin Tablet 1 tab PO DAILY ergotamine-caffeine 1-100 mg tablet 1 tab PO Q30M MDD 6 mg PRN (Reason: migraine headache) 30 Days Qty: 30 7RF Rx Instructions: do not exceed 6 mg per day or 10 mg per wk No Action diclofenac sodium 75 mg tablet,delayed release (DR/EC) 75 mg PO BID 90 Days Qty: 180 2RF cefepime 2 gram recon soln IV vancomycin 5 gram recon soln IV hydrocodone-acetaminophen 5-325 mg tablet 1 tab PO TID PRN (Reason: pain) Qty: 14 0RF Rx Instructions: Partial Fill upon patient request. Discharge Orders: Discharge Order (Routine); Ordered 09/18/25 Ordered By: Cecilio Wolf Diet: Advance to usual diet Activity on Discharge: As tolerated Stand Alone Forms: Patient Portal Discharge page Print Language: Chinese Activity Restrictions/Additional Instructions: Wound care recommendations outpatient: Buttocks: Off Load Pressure with Q2 hr turns and use of pillows - Cleanse with PH balance spray or wipes, pat dry. ?Apply thin layer of Triad to wound bed - only pat and dab no scrub and rub when soiling occurs. Reapply thin layer PRN after each episode of incontinence. Back/spine: cleanse with saline, apply skin prep alvaro wound, apply durafiber laid over wound bed, cover with foam, change every other day and PRN. Follow up with outpatient wound center for further healing. Care Plan Goals: recovery from MRSA bacteremia and spine ifnection Health Concerns: MRSA bacteremia, lumbar spine infection Plan of Treatment: Cefepime 2g IV q8 hours until October 23, 2025 Vancomycin 1 gram q 12 hours until October 23, [address] Ansari, Dr. Bull Assessment: see above Discharge Date/Time: 09/18/25 19:11
--- NOTE | 2025-09-18 14:20 | MHC.CM.PN ---
DP: PT HAS BEEN MEDICALLY CLEARED FOR DC HOME WITH [facility] OF [facility]. IV ORDERS/PICC REPORT SENT TO [facility]OTH [facility]. RN AWARE. FAMILY WILL TRANSPORT
[2025-09-18 15:13] VITALS: BP 107/62; PULSE 70; RESP 18; TEMP 36.3; O2SAT 96
--- NOTE | 2025-09-19 07:00 | HO.NEUROPN_ITS ---
Neurosurgery Operative Note Date of Service: 09/17/25 Narrative: Patient underwent lumbar laminotomy on 03/14/2025. She has a history of MRSA. She developed a deep infection positive for MRSA which was treated medically with antibiotics. Unfortunately, the infection has not be controlled despite medical management. Repeat MRIs is not sure role for surgery. The last MRI of 08/16/2025 with contrast showed improvement from previous scans and no obvious abscess that could be targeted. She returned to [facility] complaining of a nonprogressive back pain without neurological deficits. A request was made to transfer the patient back to [place] for further antibiotic management. I spoke to the neurosurgeon at [facility], Dr. Louise and we went over her latest MRI that again shows no obvious surgical target. Currently she is at [facility], she has back pain. There are no neurological deficits on exam. I recommendation is prolonged IV antibiotics followed by oral antibiotics. Serial ESR/CRP's and a repeat MRI in 4 weeks. We will have clinical follow-up with the patient as well. Juan Diego Bull MD, PhD Spine Fellowship Trained Neurosurgeon Director, [facility]
== END 2025-09-18 19:11 | disposition home health service (06) | DRG 863 ==
PROVIDERS: Hospitalist; Admitting Provider Student in an Organized Health Care Education/Training Program; PCP Physician Assistant; Visit Provider Internal Medicine
DX: T81.43XA Infection following a procedure, organ and space surgical site, initial encounter (principal); M46.26 Osteomyelitis of vertebra, lumbar region; F17.210 Nicotine dependence, cigarettes, uncomplicated; Z86.14 Personal history of Methicillin resistant Staphylococcus aureus infection; Z71.6 Tobacco abuse counseling; I10 Essential (primary) hypertension; E78.5 Hyperlipidemia, unspecified; E11.9 Type 2 diabetes mellitus without complications; K21.9 Gastro-esophageal reflux disease without esophagitis; Z79.899 Other long term (current) drug therapy
CPT/HCPCS: 36415; 36573; 80053; 80202; 82565; 85025; 87040; C1751; J0692; J1171; J1644; J3374; Q9957

== ENCOUNTER → 2025-09-15 19:06 | Outpatient (BNV) | payer MEDICARE, MEDICAID, SELFPAY | PROVIDERS: Admitting Provider Student in an Organized Health Care Education/Training Program; PCP Physician Assistant; Visit Provider Internal Medicine | DX: M86.9 Osteomyelitis, unspecified (principal); M46.26 Osteomyelitis of vertebra, lumbar region; R78.81 Bacteremia; B95.62 Methicillin resistant Staphylococcus aureus infection as the cause of diseases classified elsewhere | CPT/HCPCS: 99222; 99499 ==

== ENCOUNTER → 2025-09-15 19:06 | Outpatient (BNV) | payer MEDICARE, MEDICAID, SELFPAY | PROVIDERS: Admitting Provider Student in an Organized Health Care Education/Training Program; PCP Physician Assistant; Visit Provider Internal Medicine | DX: R78.81 Bacteremia (principal); B95.62 Methicillin resistant Staphylococcus aureus infection as the cause of diseases classified elsewhere | CPT/HCPCS: 99223; 99232; 99499; G0180 ==

== ENCOUNTER → 2025-09-15 19:06 | Outpatient (BNV) | payer MEDICARE, MEDICAID, SELFPAY | PROVIDERS: Admitting Provider Student in an Organized Health Care Education/Training Program; PCP Physician Assistant; Visit Provider Neurological Surgery | DX: M54.50 Low back pain, unspecified (principal) | CPT/HCPCS: 99232; 99499 ==

== ENCOUNTER 2025-09-21 09:54 | Outpatient (REF) | payer MEDICARE, MEDICAID, SELFPAY ==
[2025-09-21 09:59] LABS: MANUAL DIFF FLAG NO
[2025-09-21 10:00] LABS: Hematocrit 34.2 % (37.0-47.0); Hemoglobin 11.1 g/dl (12.0-16.0); Imm Gran Abs Auto 0.05 X10*3/uL (0.00-0.03); Imm Gran Pct Auto 0.7 % (0.0-0.4); Lymphocytes Absolute Auto 2.2 X10*3/uL (1.2-4.9); Mean Corpuscular HGB Conc 32.5 g/dl (31.0-35.0); Mean Corpuscular Hemoglobin 29.1 pg (27.0-33.0); Mean Corpuscular Volume 89.5 fL (80.0-98.0); NRBC Abs Auto 0.000 X10*3/uL (0.0-0.012); NRBC Pct Auto 0.0 /100WBC (0.0-0.2); Platelet Count 308 X10*3/uL (160-400); Red Blood Count 3.82 X10*6/uL (4.20-5.50); White Blood Count 7.3 X10*3/uL (4.8-10.8)
[2025-09-21 10:35] LABS: Alanine Aminotransferase 19 U/L (0-31); Albumin Level 3.5 g/dL (3.5-5.0); Alkaline Phosphatase 96 U/L (39-117); Anion Gap 9 (12-20); Aspartate Amino Transferase 25 U/L (5-31); Blood Urea Nitrogen 11 mg/dL (9-16); Calcium 10.2 mg/dL (8.4-10.2); Carbon Dioxide 28 mmol/L (22-29); Chloride 108 mmol/L (96-108); Estimated Glomerular Filt Rate > 60; Potassium 3.8 mmol/L (3.3-5.1); Sodium 141 mmol/L (135-145); Total Protein 7.1 g/dL (6.5-8.0)
== END 2025-09-21 09:55 | disposition home or self-care (01) ==
LOC: HO.HVNA 09:54
PROVIDERS: Visit Provider Internal Medicine
DX: M46.26 Osteomyelitis of vertebra, lumbar region (principal); M46.46 Discitis, unspecified, lumbar region
CPT/HCPCS: 36415; 80053; 80202; 85025

== ENCOUNTER 2025-09-27 13:12 | Outpatient (REF) | payer MEDICARE, MEDICAID, SELFPAY ==
[2025-09-27 13:18] LABS: MANUAL DIFF FLAG NO
[2025-09-27 13:29] LABS: Hematocrit 38.5 % (37.0-47.0); Hemoglobin 12.5 g/dl (12.0-16.0); Imm Gran Abs Auto 0.03 X10*3/uL (0.00-0.03); Imm Gran Pct Auto 0.4 % (0.0-0.4); Lymphocytes Absolute Auto 2.2 X10*3/uL (1.2-4.9); Mean Corpuscular HGB Conc 32.5 g/dl (31.0-35.0); Mean Corpuscular Hemoglobin 29.7 pg (27.0-33.0); Mean Corpuscular Volume 91.4 fL (80.0-98.0); NRBC Abs Auto 0.000 X10*3/uL (0.0-0.012); NRBC Pct Auto 0.0 /100WBC (0.0-0.2); Platelet Count 331 X10*3/uL (160-400); Red Blood Count 4.21 X10*6/uL (4.20-5.50); White Blood Count 7.4 X10*3/uL (4.8-10.8)
[2025-09-27 13:50] LABS: Alanine Aminotransferase 17 U/L (0-31); Albumin Level 3.9 g/dL (3.5-5.0); Alkaline Phosphatase 112 U/L (39-117); Anion Gap 14 (12-20); Aspartate Amino Transferase 20 U/L (5-31); Blood Urea Nitrogen 12 mg/dL (9-16); Calcium 10.4 mg/dL (8.4-10.2); Carbon Dioxide 25 mmol/L (22-29); Chloride 106 mmol/L (96-108); Estimated Glomerular Filt Rate > 60; Potassium 3.7 mmol/L (3.3-5.1); Sodium 141 mmol/L (135-145); Total Protein 7.6 g/dL (6.5-8.0)
== END 2025-09-27 13:13 | disposition home or self-care (01) ==
LOC: HO.HVNA 13:12
PROVIDERS: Visit Provider Internal Medicine
DX: R78.81 Bacteremia (principal); K68.12 Psoas muscle abscess
CPT/HCPCS: 36415; 80053; 85025

== ENCOUNTER 2025-09-28 11:14 | Outpatient (REF) | payer MEDICARE, MEDICAID, SELFPAY | END 2025-09-28 11:15 | disposition home or self-care (01) | LOC: HO.HVNA 11:14 | PROVIDERS: Visit Provider Internal Medicine | DX: M46.26 Osteomyelitis of vertebra, lumbar region (principal); Z78.9 Other specified health status; M60.08 Infective myositis, other site; B95.62 Methicillin resistant Staphylococcus aureus infection as the cause of diseases classified elsewhere | CPT/HCPCS: 36415; 80202 ==

== ENCOUNTER 2025-10-03 11:45 | Outpatient (REF) | payer MEDICARE, MEDICAID, SELFPAY ==
[2025-10-03 11:47] LABS: MANUAL DIFF FLAG NO
[2025-10-03 12:00] LABS: Alanine Aminotransferase 11 U/L (0-31); Albumin Level 3.6 g/dL (3.5-5.0); Alkaline Phosphatase 104 U/L (39-117); Anion Gap 12 (12-20); Aspartate Amino Transferase 17 U/L (5-31); Blood Urea Nitrogen 19 mg/dL (9-16); Calcium 9.8 mg/dL (8.4-10.2); Carbon Dioxide 24 mmol/L (22-29); Chloride 108 mmol/L (96-108); Estimated Glomerular Filt Rate > 60; Hematocrit 37.8 % (37.0-47.0); Hemoglobin 12.0 g/dl (12.0-16.0); Imm Gran Abs Auto 0.01 X10*3/uL (0.00-0.03); Imm Gran Pct Auto 0.1 % (0.0-0.4); Lymphocytes Absolute Auto 2.0 X10*3/uL (1.2-4.9); Mean Corpuscular HGB Conc 31.7 g/dl (31.0-35.0); Mean Corpuscular Hemoglobin 29.1 pg (27.0-33.0); Mean Corpuscular Volume 91.7 fL (80.0-98.0); NRBC Abs Auto 0.000 X10*3/uL (0.0-0.012); NRBC Pct Auto 0.0 /100WBC (0.0-0.2); Platelet Count 230 X10*3/uL (160-400); Potassium 3.6 mmol/L (3.3-5.1); Red Blood Count 4.12 X10*6/uL (4.20-5.50); Sodium 140 mmol/L (135-145); Total Protein 6.8 g/dL (6.5-8.0); White Blood Count 7.1 X10*3/uL (4.8-10.8)
== END 2025-10-03 11:46 | disposition home or self-care (01) ==
LOC: HO.HVNA 11:45
PROVIDERS: Visit Provider Internal Medicine
DX: M46.23 Osteomyelitis of vertebra, cervicothoracic region (principal); R78.81 Bacteremia; B95.62 Methicillin resistant Staphylococcus aureus infection as the cause of diseases classified elsewhere
CPT/HCPCS: 36415; 80053; 80202; 85025

== ENCOUNTER 2025-10-10 13:55 | Outpatient (REF) | payer MEDICARE, MEDICAID, SELFPAY ==
[2025-10-10 14:30] LABS: MANUAL DIFF FLAG NO
[2025-10-10 14:33] LABS: Hematocrit 35.7 % (37.0-47.0); Hemoglobin 11.9 g/dl (12.0-16.0); Imm Gran Abs Auto 0.04 X10*3/uL (0.00-0.03); Imm Gran Pct Auto 0.6 % (0.0-0.4); Lymphocytes Absolute Auto 1.8 X10*3/uL (1.2-4.9); Mean Corpuscular HGB Conc 33.3 g/dl (31.0-35.0); Mean Corpuscular Hemoglobin 29.7 pg (27.0-33.0); Mean Corpuscular Volume 89.0 fL (80.0-98.0); NRBC Abs Auto 0.000 X10*3/uL (0.0-0.012); NRBC Pct Auto 0.0 /100WBC (0.0-0.2); Platelet Count 236 X10*3/uL (160-400); Red Blood Count 4.01 X10*6/uL (4.20-5.50); White Blood Count 6.7 X10*3/uL (4.8-10.8)
[2025-10-10 15:18] LABS: Alanine Aminotransferase 13 U/L (0-31); Albumin Level 3.7 g/dL (3.5-5.0); Alkaline Phosphatase 103 U/L (39-117); Anion Gap 11 (12-20); Aspartate Amino Transferase 14 U/L (5-31); Blood Urea Nitrogen 14 mg/dL (9-16); Calcium 10.0 mg/dL (8.4-10.2); Carbon Dioxide 24 mmol/L (22-29); Chloride 111 mmol/L (96-108); Estimated Glomerular Filt Rate > 60; Potassium 3.6 mmol/L (3.3-5.1); Sodium 142 mmol/L (135-145); Total Protein 7.1 g/dL (6.5-8.0)
== END 2025-10-10 13:56 | disposition home or self-care (01) ==
LOC: HO.HVNA 13:55
PROVIDERS: Visit Provider Internal Medicine
DX: M46.26 Osteomyelitis of vertebra, lumbar region (principal); R78.81 Bacteremia
CPT/HCPCS: 36415; 80053; 80202; 85025